=== PATIENT | male | born 1980 | race Two or more races ===

== ENCOUNTER 2018-03-07 10:35 | Inpatient (IN) | payer OTHER ==
[~2018-03-07] VITALS: Ht 177.8 cm; Wt 131.2 kg
[2018-03-07] MEDS ORDERED: IV NORMAL SALINE 1000ML BAG 1,000 ML IV SCH (11:00)
[2018-03-07] MEDS ORDERED: 0.9 % SODIUM CHLORIDE 10 ML DISP.SYRIN. IV PRN (11:00)
[2018-03-07] MEDS ORDERED: CONTRAST GIVEN. MC PRN (11:15)
[2018-03-07] MEDS ORDERED: IOHEXOL 300 MG/ML 100ML VIAL. IV ONE (11:15)
--- NOTE | 2018-03-07 11:26 | EKG ---
[facility] [address] [place] [address] Test Date: 2018-03-07 Test Time: 10:43:40 Pat Name: ROMÁN CALI Department: Room: Gender: M [employer]st [employer]: : 1980 Requested By: JOSEPHINE LEAL Order Number: [id number] Reading MD: Natanael Gutierrez MD Measurements Intervals [place] Rate: 126 P: -137 [place]: 110 QRS: 22 QRSD: 88 T: 14 QT: 348 QTc: 504 Interpretive Statements SINUS TACHYCARDIA Electronically Signed On 03-22-2018 9:07:09 CDT by Natanael Gutierrez MD
[2018-03-07 11:47] LABS: BASO % 0 % (0-3); EOS # 0.2 x10^3/uL (0.0-0.7); EOS % 1 % (0-3); HEMATOCRIT 44.1 % (39.0-53.0); HEMOGLOBIN 14.9 g/dL (13.0-17.5); LYMPH # 1.6 x10^3/uL (1.0-4.8); LYMPH % 11 % (24-48); MEAN CORPUSCULAR HEMOGLOBIN 30 pg (25-35); MEAN CORPUSCULAR HGB CONC 34 g/dL (31-37); MEAN CORPUSCULAR VOLUME 89 fL (79-100); MONO # 0.8 x10^3/uL (0.0-1.1); MONO % 5 % (0-9); NEUT # 12.1 x10^3uL (1.8-7.7); NEUT % 82 % (31-73); PLATELET COUNT 235 x10^3/uL (140-400); RED BLOOD COUNT 4.99 x10^6/uL (4.30-5.70); RED CELL DISTRIBUTION WIDTH 13.1 % (11.5-14.5); WHITE BLOOD COUNT 14.7 x10^3/uL (4.0-11.0)
[2018-03-07] MEDS ORDERED: IV NORMAL SALINE 1000ML BAG 1,000 ML IV ONE (12:00)
[2018-03-07 12:05] LABS: CALCIUM 9.8 mg/dL (8.5-10.1); GFR 84.5
[2018-03-07 12:11] LABS: ALBUMIN 3.6 g/dL (3.4-5.0); ALBUMIN/GLOBULIN RATIO 0.8 (1.0-1.7); TOTAL BILIRUBIN 0.8 mg/dL (0.2-1.0); TOTAL PROTEIN 7.9 g/dL (6.4-8.2)
--- NOTE | 2018-03-07 12:14 | PHYS DOC ---
Past Medical History Past Medical History: GERD, Hypertension Past Surgical History: Other Additional Past Surgical Histo: LEFT FOOT FX REPAIR, Alcohol Use: Rarely Drug Use: None Adult General Chief Complaint Chief Complaint: ABDOMINAL PAIN HPI HPI Patient is a 37 year old male who presents with 6-8 watery stools yesterday and 2 watery stools today. Patient states he has sharp low mid umbilical pain cramping with just plain that becomes sharp and radiates down to his scrotum upon standing. Patient rates his pain an 9 out of 10. She denies chest pain or shortness of air. Patient states he has no urinary symptoms. She states she took ibuprofen at 7:00 this morning. Has had a fever yesterday of 101 and the nurses took his temp today and it was 99. 6 and the patient states that he is having chills. Review of Systems Review of Systems Constitutional: Denies fever or chills [] Eyes: Denies change in visual acuity, redness, or eye pain [] HENT: Denies nasal congestion or sore throat [] Respiratory: Denies cough or shortness of breath [] Cardiovascular: No additional information not addressed in HPI [] GI: Low mid abdominal pain, nausea, No vomiting or bloody stools. Watery diarrhea. [] : Denies dysuria or hematuria [] Musculoskeletal: Denies back pain or joint pain [] Integument: Denies rash or skin lesions [] Neurologic: Denies headache, focal weakness or sensory changes [] Endocrine: Denies polyuria or polydipsia [] All other systems were reviewed and found to be within normal limits, except as documented in this note. Current Medications Current Medications Current Medications Medications (Trade) Dose Ordered Sig/Kee Start Time Stop Time Status Last Admin Dose Admin Ciprofloxacin/ Dextrose 200 ml @ 200 mls/hr ONCE STAT 03/07/18 13:12 03/07/18 14:11 DC 03/07/18 13:42 200 MLS/HR Diphenhydramine HCl (Benadryl) 50 mg 1X ONCE 03/07/18 14:15 03/07/18 14:16 DC 03/07/18 14:33 50 MG Fentanyl Citrate (Fentanyl 2ml Vial) 25 mcg 1X ONCE 03/07/18 14:15 03/07/18 14:16 Cancel Info (CONTRAST GIVEN -- Rx MONITORING) 1 each PRN DAILY PRN 03/07/18 11:15 03/09/18 11:14 Iohexol (Omnipaque 300 Mg/ml) 75 ml 1X ONCE 03/07/18 11:15 03/07/18 11:16 DC 03/07/18 12:46 75 ML Metronidazole 100 ml @ 100 mls/hr 1X ONCE 03/07/18 13:30 03/07/18 14:29 DC Sodium Chloride 1,000 ml @ 1,000 mls/hr 1X ONCE 03/07/18 12:00 03/07/18 12:59 DC 03/07/18 12:37 1,000 MLS/HR Sodium Chloride (Normal Saline Flush) 3 ml QSHIFT PRN 03/07/18 11:00 Allergies Allergies Allergies Coded Allergies Type Severity Reaction Last Updated Verified ciprofloxacin Allergy Intermediate RASH 03/07/18 Yes Physical Exam Physical Exam Constitutional: Well developed, well nourished, no acute distress, non-toxic appearance. [] HENT: Normocephalic, atraumatic, bilateral external ears normal, oropharynx moist, no oral exudates, nose normal. [] Eyes: PERRLA, EOMI, conjunctiva normal, no discharge. [] Neck: Normal range of motion, no tenderness, supple, no stridor. [] Cardiovascular:Heart rate regular rhythm, no murmur [] Lungs & Thorax: Bilateral breath sounds clear to auscultation [] Abdomen: Bowel sounds normal, soft, Low mid abdominal tenderness, no masses, no pulsatile masses. Abdominal pain radiates to testicular pain.[] Skin: Warm, dry, no erythema, no rash. [] Back: No tenderness, no CVA tenderness. [] Extremities: No tenderness, no cyanosis, no clubbing, ROM intact, no edema. [] Neurologic: Alert and oriented X 3, normal motor function, normal sensory function, no focal deficits noted. [] Psychologic: Affect normal, judgement normal, mood normal. [] Current Patient Data Vital Signs Vital Signs Date Time Temp Pulse Resp B/P (MAP) Pulse Ox O2 Delivery O2 Flow Rate FiO2 03/07/18 13:07 20 Room Air 03/07/18 10:36 97.9 129 162/93 (116) 95 97.9 Lab Values Laboratory Tests Test 03/07/18 11:25 03/07/18 12:18 White Blood Count 14.7 x10^3/uL (4.0-11.0) H Red Blood Count 4.99 x10^6/uL (4.30-5.70) Hemoglobin 14.9 g/dL (13.0-17.5) Hematocrit 44.1 % (39.0-53.0) Mean Corpuscular Volume 89 fL (79-100) Mean Corpuscular Hemoglobin 30 pg (25-35) Mean Corpuscular Hemoglobin Concent 34 g/dL (31-37) Red Cell Distribution Width 13.1 % (11.5-14.5) Platelet Count 235 x10^3/uL (140-400) Neutrophils (%) (Auto) 82 % (31-73) H Lymphocytes (%) (Auto) 11 % (24-48) L Monocytes (%) (Auto) 5 % (0-9) Eosinophils (%) (Auto) 1 % (0-3) Basophils (%) (Auto) 0 % (0-3) Neutrophils # (Auto) 12.1 x10^3uL (1.8-7.7) H Lymphocytes # (Auto) 1.6 x10^3/uL (1.0-4.8) Monocytes # (Auto) 0.8 x10^3/uL (0.0-1.1) Eosinophils # (Auto) 0.2 x10^3/uL (0.0-0.7) Basophils # (Auto) 0.0 x10^3/uL (0.0-0.2) Sodium Level 136 mmol/L (136-145) Potassium Level 4.0 mmol/L (3.5-5.1) Chloride Level 99 mmol/L (98-107) Carbon Dioxide Level 26 mmol/L (21-32) Anion Gap 11 (6-14) Blood Urea Nitrogen 14 mg/dL (8-26) Creatinine 1.0 mg/dL (0.7-1.3) Estimated GFR (Cockcroft-Gault) 84.5 BUN/Creatinine Ratio 14 (6-20) Glucose Level 162 mg/dL (70-99) H Calcium Level 9.8 mg/dL (8.5-10.1) Total Bilirubin 0.8 mg/dL (0.2-1.0) Aspartate Amino Transferase (AST) 49 U/L (15-37) H Alanine Aminotransferase (ALT) 141 U/L (16-63) H Alkaline Phosphatase 104 U/L (46-116) Creatine Kinase 24 U/L (39-308) L Total Protein 7.9 g/dL (6.4-8.2) Albumin 3.6 g/dL (3.4-5.0) Albumin/Globulin Ratio 0.8 (1.0-1.7) L Urine Collection Type Unknown Urine Color Jacquelyn Urine Clarity Clear Urine pH 6.5 Urine Specific [place] 1.020 Urine Protein 30 mg/dL (NEG-TRACE) Urine Glucose (UA) Negative mg/dL (NEG) Urine Ketones (Stick) Negative mg/dL (NEG) Urine Blood Negative (NEG) Urine Nitrite Negative (NEG) Urine Bilirubin Negative (NEG) Urine Urobilinogen Dipstick 0.2 mg/dL (0.2 mg/dL) Urine Leukocyte Esterase Negative (NEG) Urine RBC 0 /HPF (0-2) Urine WBC 1-4 /HPF (0-4) Urine Squamous Epithelial Cells Few /LPF Urine Transitional Epithelial Cells Few /LPF Urine Bacteria 0 /HPF (0-FEW) Urine Hyaline Casts Few /HPF Urine Mucus Marked /LPF Urine Opiates Screen Neg (NEG) Urine Methadone Screen Neg (NEG) Urine Barbiturates Neg (NEG) Urine Phencyclidine Screen Neg (NEG) Urine Amphetamine/Methamphetamine Neg (NEG) Urine Benzodiazepines Screen Neg (NEG) Urine Cocaine Screen Pos (NEG) Urine Cannabinoids Screen Pos (NEG) Urine Ethyl Alcohol Neg (NEG) Laboratory Tests 03/07/18 11:25 Laboratory Tests 03/07/18 11:25 EKG EKG Supraventricular rhythm, QRS contour abnormality, consider anterolateral myocardial damage, no STEMI[] Interpretation Time: 10:[address] Orellana Radiology/Procedures Radiology/Procedures CT Abdomen[] Impressions: [facility] [address] [place], [place] [id number] IMAGING REPORT Signed PATIENT: ROMÁN CALI ACCOUNT: [id number] : 1980 LOCATION: ER AGE: 37 SEX: M EXAM STATUS: REG ER ORD. PHYSICIAN: JOSEPHINE LEAL APRN REASON: Abdominal pain PROCEDURE: CT ABD PELV W/ IV CONTRST ONLY EXAM: Abdomen and pelvis CT with intravenous contrast. HISTORY: Pain. TECHNIQUE: Computed tomographic images of the abdomen and pelvis were obtained following the administration of 75 cc Omnipaque 300 intravenous contrast. Multiplanar reformatting was performed. *One or more of the following individualized dose reduction techniques were utilized for this examination: 1. Automated exposure control. 2. Adjustment of the mA and/or kV according to patient size. 3. Use of iterative reconstruction technique. COMPARISON: None. FINDINGS: Evaluation of the lower thorax demonstrates posterior dependent and basilar atelectasis. There is hepatomegaly and hepatic steatosis. No suspicious hepatic lesion is seen. There are few hepatic and splenic granulomas. The spleen is normal in size. The gallbladder, pancreas and adrenal glands are unremarkable. The kidneys are unremarkable. The appendix is prominent in caliber. However, there is no clear appendiceal wall thickening just acute appendicitis. There may be an appendicolith at the base of the appendix. There is distal colonic diverticulosis. There is segmental mucosal thickening with surrounding stranding involving the proximal sigmoid colon, the appearance of which favors acute diverticulitis rather than colitis. There is a small amount of adjacent free fluid and a tiny focus of extraluminal gas within the left lower quadrant. No drainable fluid collection is seen. There is no lymphadenopathy. There is a tiny fat-containing umbilical hernia. The bladder is empty. There is increased fat within the inguinal canals. There is no suspicious osseous lesion. IMPRESSION: 1. Acute diverticulitis involving the proximal sigmoid colon. There is a small amount of adjacent free fluid and a focus of free air within the left lower quadrant. No drainable abscess is seen. 2. Prominent appendiceal caliber. This is likely physiologic. There are no secondary findings to suggest appendicitis. 3. Hepatomegaly and hepatic steatosis. Electronically signed by: Penelope Osei MD (03/07/2018 1:02 PM) [place] [id number] DICTATED and SIGNED BY: PENELOPE OSEI MD DATE: 03/07/18 1257 Course & Med Decision Making Course & Med Decision Making Upon examination patient has low mid abdominal pain that is tender to palpation. Patient states that when he is laying it's a crampy feeling but when he stands the pain radiates down into his scrotum. Patient rates his pain a 9 out of 10 and sharp. Patient has no scrotal edema in both testes are descended. Denies any chest pain or shortness of air. Patient denies any urinary symptoms. Patient's family states that yesterday he did have a fever of 101. Nurse's today state that his temp is 99 states that he said some chills in the room. Denies any other symptoms. Patient is neurologically intact. Patient's does have an elevated white blood cell count of 14.7. Patient's EKG read by Dr. Garcia shows no STEMI but he is tachycardic at 126. Patient is going to receive 2 L of normal saline boluses today in the ED. patient was given 50 of fentanyl for pain. Patient's urine came back with cocaine and marijuana present. CT abdomen and pelvis show results state Acute diverticulitis involving the proximal sigmoid colon. There is a small amount of adjacent free fluid and a focus of free air within the left lower quadrant. No drainable abscess is seen. Prominent appendiceal caliber. This is likely physiologic. There are no secondary findings to suggest appendicitis. Hepatomegaly and hepatic steatosis. Patient has been told results of the CT scan and Gen. surgery to be called. Patient's blood pressure is currently 149/87 and his heart rate is 121. Patient is currently on his second bolus of normal saline. And IV antibiotics Ciprofloxacin 500mg and Flagyl 500 mg have been ordered in the ED. Patient is to be kept nothing by mouth. Patient's last intake was last night at 6 PM. Patient had a reaction to the ciprofloxacin that he was given here in the ER with a red rash. Patient is given 50 mg of Benadryl IV and the antibiotic is changed to Zosyn. General surgery Dr Morse is called to consult at about the patient. Dr. Powell is admitting patient to [facility]. Patient is given another 4 mg of morphine for pain. Patient to be admitted upstairs. [] Sam Disclaimer Dragon Disclaimer This electronic medical record was generated, in whole or in part, using a voice recognition dictation system. Departure Departure Impression: Primary Impression: Diverticulitis of colon with perforation Disposition: ADMITTED INPATIENT Admitting Physician: Bhavna Powell Condition: STABLE Referrals: JOSE BUTTERFIELD MD (PCP) Problem Qualifiers Primary Impression: Diverticulitis of colon with perforation Diverticulitis bleeding: unspecified bleeding status Qualified Codes: K57.20 - Diverticulitis of large intestine with perforation and abscess without bleeding JOSEPHINE LEAL PESTICIDE APPLICATOR Mar 07, 2018 12:14
[2018-03-07 12:28] LABS: BILIRUBIN,URINE NEGATIVE (NEG); CLARITY,URINE CLEAR; COLOR,URINE AMBER; NITRITE,URINE NEGATIVE (NEG); PH,URINE 6.5; PROTEIN,URINE 30 mg/dL (NEG-TRACE); UROBILINOGEN,URINE 0.2 mg/dL (0.2 mg/dL)
[2018-03-07 12:35] LABS: AMPHETAMINE/METHAMPHETAMINE NEG (NEG); BARBITURATES NEG (NEG); BENZODIAZEPINES NEG (NEG); CANNABINOIDS POS (NEG); COCAINE POS (NEG); METHADONE NEG (NEG); OPIATES NEG (NEG); PHENCYCLIDINE NEG (NEG)
[2018-03-07 12:39] LABS: BACTERIA,URINE 0 /HPF (0-FEW); HYALINE CASTS, URINE FEW /HPF; RBC,URINE 0 /HPF (0-2); SQUAMOUS EPITHELIAL CELL,UR FEW /LPF
[2018-03-07] MEDS ORDERED: fentaNYL PF VIAL 100 MCG/2 ML VIAL IV ONE ×2 (13:00→14:15)
--- NOTE | 2018-03-07 13:05 | RAD ---
EXAM: Abdomen and pelvis CT with intravenous contrast. HISTORY: Pain. TECHNIQUE: Computed tomographic images of the abdomen and pelvis were obtained following the administration of 75 cc Omnipaque 300 intravenous contrast. Multiplanar reformatting was performed. *One or more of the following individualized dose reduction techniques were utilized for this examination: 1. Automated exposure control. 2. Adjustment of the mA and/or kV according to patient size. 3. Use of iterative reconstruction technique. COMPARISON: None. FINDINGS: Evaluation of the lower thorax demonstrates posterior dependent and basilar atelectasis. There is hepatomegaly and hepatic steatosis. No suspicious hepatic lesion is seen. There are few hepatic and splenic granulomas. The spleen is normal in size. The gallbladder, pancreas and adrenal glands are unremarkable. The kidneys are unremarkable. The appendix is prominent in caliber. However, there is no clear appendiceal wall thickening just acute appendicitis. There may be an appendicolith at the base of the appendix. There is distal colonic diverticulosis. There is segmental mucosal thickening with surrounding stranding involving the proximal sigmoid colon, the appearance of which favors acute diverticulitis rather than colitis. There is a small amount of adjacent free fluid and a tiny focus of extraluminal gas within the left lower quadrant. No drainable fluid collection is seen. There is no lymphadenopathy. There is a tiny fat-containing umbilical hernia. The bladder is empty. There is increased fat within the inguinal canals. There is no suspicious osseous lesion. IMPRESSION: 1. Acute diverticulitis involving the proximal sigmoid colon. There is a small amount of adjacent free fluid and a focus of free air within the left lower quadrant. No drainable abscess is seen. 2. Prominent appendiceal caliber. This is likely physiologic. There are no secondary findings to suggest appendicitis. 3. Hepatomegaly and hepatic steatosis. Electronically signed by: Penelope Younger MD (03/07/2018 1:02 PM) [place] [id number]
[2018-03-07] MEDS ORDERED: CIPROFLOXACIN 400MG PREMIX 200 ML IV STA (13:12)
[2018-03-07] MEDS ORDERED: diphenhydrAMINE 50 MG/ML VIAL IVP ONE (14:15)
[2018-03-07] MEDS ORDERED: ONDANSETRON PF 4 MG/2 ML VIAL. IV PRN (14:30)
[2018-03-07] MEDS ORDERED: MORPHINE SULFATE 4 MG/ML DISP.SYRIN. IV ONE (14:30)
[2018-03-07] MEDS ORDERED: PIPERACILLIN/TAZOBACTAM 3.375 GM in IV NORMAL SALINE 50ML 50 ML IV ONE (14:30)
[2018-03-07 16:00] VITALS: BP 128/70
[2018-03-07] MEDS: MORPHINE SULFATE 4 MG/ML DISP.SYRIN. IV PRN ×4 (16:30→23:05)
[2018-03-07] MEDS ORDERED: IV NORMAL SALINE 500ML BAG 500 ML IV ONE (16:45)
[2018-03-07] MEDS: AMINO AC 3%/ELECTROLYTE/GLYCER 1,000 ML IV SCH (17:23)
--- NOTE | 2018-03-07 17:52 | PDOC2 ---
CONSULT Date of Consult Date of Consult DATE: 03/07/18 TIME: 17:46 Reason for Consult Reason for Consult: diverticulitis Referring Physician Referring Physician: IPC Identification/Chief Complaint Chief Complaint LLQ pain, loose stools Source Source: Chart review, Patient History of Present Illness Reason for Visit: Deep is an obese 37 yo gentleman with two days of loose stools and LLQ pain. CT in ED showed sigmoid diverticulitis with a very small collection of extraluminal air. Past Medical History Cardiovascular: No pertinent hx Pulmonary: No pertinent hx GI: No pertinent hx Past Surgical History Past Surgical History: No pertinent history Family History Family History: No Significant Social History Drugs: Cocaine, Marijuana Current Problem List Problem List Problems Medical Problems: (1) Diverticulitis of colon with perforation Status: Acute Current Medications Current Medications Current Medications Sodium Chloride (Normal Saline Flush) 3 ml QSHIFT PRN IV AFTER MEDS AND BLOOD DRAWS; Start 03/07/18 at 11:00 Sodium Chloride 1,000 ml @ 1,000 mls/hr Q1H IV Last administered on 03/07/18at 11:32; Start 03/07/18 at 11:00; Stop 03/07/18 at 11:59; Status DC Iohexol (Omnipaque 300 Mg/ml) 75 ml 1X ONCE IV Last administered on 03/07/18at 12:46; Start 03/07/18 at 11:15; Stop 03/07/18 at 11:16; Status DC Info (CONTRAST GIVEN -- Rx MONITORING) 1 each PRN DAILY PRN MC SEE COMMENTS; Start 03/07/18 at 11:15; Stop 03/09/18 at 11:14 Sodium Chloride 1,000 ml @ 1,000 mls/hr 1X ONCE IV Last administered on at 12:37; Start 03/07/18 at 12:00; Stop 03/07/18 at 12:59; Status DC Fentanyl Citrate (Fentanyl 2ml Vial) 50 mcg 1X ONCE IV Last administered on 03/07/18at 13:07; Start 03/07/18 at 13:00; Stop 03/07/18 at 13:01; Status DC Metronidazole 100 ml @ 100 mls/hr 1X ONCE IV ; Start 03/07/18 at 13:30; Stop at 14:29; Status DC Ciprofloxacin/ Dextrose 200 ml @ 200 mls/hr ONCE STAT IV Last administered on 03/07/18at 13:42; Start 03/07/18 at 13:12; Stop 03/07/18 at 14:11; Status DC Piperacillin Sod/ Tazobactam Sod 3.375 gm/Sodium Chloride 50 ml @ 100 mls/hr 1X ONCE IV Last administered on 03/07/18at 14:43; Start 03/07/18 at 14:30; Stop 03/07/18 at 14:59; Status DC Diphenhydramine HCl (Benadryl) 50 mg 1X ONCE IVP Last administered on at 14:33; Start 03/07/18 at 14:15; Stop 03/07/18 at 14:16; Status DC Fentanyl Citrate (Fentanyl 2ml Vial) 25 mcg 1X ONCE IV ; Start 03/07/18 at 14:15 ; Stop 03/07/18 at 14:16; Status Cancel Morphine Sulfate (Morphine Sulfate) 4 mg 1X ONCE IV Last administered on at 14:35; Start 03/07/18 at 14:30; Stop 03/07/18 at 14:31; Status DC Ondansetron HCl (Zofran) 4 mg PRN Q8HRS PRN IV NAUSEA/VOMITING; Start 03/07/18 at 14:30; Stop 03/08/18 at 14:29 Morphine Sulfate (Morphine Sulfate) 4 mg PRN Q2HR PRN IV PAIN Last administered on 03/07/18at 16:30; Start 03/07/18 at 14:30; Stop 03/08/18 at 14:29 Piperacillin Sod/ Tazobactam Sod 3.375 gm/Sodium Chloride 50 ml @ 100 mls/hr Q6HRS IV ; Start 03/07/18 at 18:00 Metronidazole 100 ml @ 100 mls/hr Q8HRS IV ; Start 03/07/18 at 22:00 Sodium Chloride 500 ml @ 500 mls/hr 1X ONCE IV ; Start 03/07/18 at 16:45; Stop 03/07/18 at 17:44; Status DC Amino Acids/ Glycerin/ Electrolytes 1,000 ml @ 80 mls/hr [id number] IV Last administered on 03/07/18at 17:23; Start 03/07/18 at 16:45 Allergies Allergies: Coded Allergies: ciprofloxacin (Verified Allergy, Intermediate, RASH, 03/07/18) ROS Review of System negative with exception of present complaints Physical Exam General: Alert, Oriented X3, No acute distress HEENT: Atraumatic Lungs: Normal air movement Heart: Other (increased rate, regular rythmn) Abdomen: Soft, Other (obese, mildly TTP in the LLQ) Skin: Other (warm, dry) Neuro: Normal speech Vitals VITALS Vital Signs Date Time Temp Pulse Resp B/P (MAP) Pulse Ox O2 Delivery O2 Flow Rate FiO2 03/07/18 16:30 24 Room Air 03/07/18 16:00 101.4 124 128/70 (89) 91 101.4 Labs Labs Laboratory Tests Test 03/07/18 11:25 03/07/18 12:18 03/07/18 16:40 White Blood Count 14.7 x10^3/uL (4.0-11.0) Red Blood Count 4.99 x10^6/uL (4.30-5.70) Hemoglobin 14.9 g/dL (13.0-17.5) Hematocrit 44.1 % (39.0-53.0) Mean Corpuscular Volume 89 fL (79-100) Mean Corpuscular Hemoglobin 30 pg (25-35) Mean Corpuscular Hemoglobin Concent 34 g/dL (31-37) Red Cell Distribution Width 13.1 % (11.5-14.5) Platelet Count 235 x10^3/uL (140-400) Neutrophils (%) (Auto) 82 % (31-73) Lymphocytes (%) (Auto) 11 % (24-48) Monocytes (%) (Auto) 5 % (0-9) Eosinophils (%) (Auto) 1 % (0-3) Basophils (%) (Auto) 0 % (0-3) Neutrophils # (Auto) 12.1 x10^3uL (1.8-7.7) Lymphocytes # (Auto) 1.6 x10^3/uL (1.0-4.8) Monocytes # (Auto) 0.8 x10^3/uL (0.0-1.1) Eosinophils # (Auto) 0.2 x10^3/uL (0.0-0.7) Basophils # (Auto) 0.0 x10^3/uL (0.0-0.2) Sodium Level 136 mmol/L (136-145) Potassium Level 4.0 mmol/L (3.5-5.1) Chloride Level 99 mmol/L (98-107) Carbon Dioxide Level 26 mmol/L (21-32) Anion Gap 11 (6-14) Blood Urea Nitrogen 14 mg/dL (8-26) Creatinine 1.0 mg/dL (0.7-1.3) Estimated GFR (Cockcroft-Gault) 84.5 BUN/Creatinine Ratio 14 (6-20) Glucose Level 162 mg/dL (70-99) Calcium Level 9.8 mg/dL (8.5-10.1) Total Bilirubin 0.8 mg/dL (0.2-1.0) Aspartate Amino Transf (AST/SGOT) 49 U/L (15-37) Alanine Aminotransferase (ALT/SGPT) 141 U/L (16-63) Alkaline Phosphatase 104 U/L (46-116) Creatine Kinase 24 U/L (39-308) Total Protein 7.9 g/dL (6.4-8.2) Albumin 3.6 g/dL (3.4-5.0) Albumin/Globulin Ratio 0.8 (1.0-1.7) Urine Collection Type Unknown Urine Color Jacquelyn Urine Clarity Clear Urine pH 6.5 Urine Specific [place] 1.020 Urine Protein 30 mg/dL (NEG-TRACE) Urine Glucose (UA) Negative mg/dL (NEG) Urine Ketones (Stick) Negative mg/dL (NEG) Urine Blood Negative (NEG) Urine Nitrite Negative (NEG) Urine Bilirubin Negative (NEG) Urine Urobilinogen Dipstick 0.2 mg/dL (0.2 mg/dL) Urine Leukocyte Esterase Negative (NEG) Urine RBC 0 /HPF (0-2) Urine WBC 1-4 /HPF (0-4) Urine Squamous Epithelial Cells Few /LPF Urine Transitional Epithelial Cells Few /LPF Urine Bacteria 0 /HPF (0-FEW) Urine Hyaline Casts Few /HPF Urine Mucus Marked /LPF Urine Opiates Screen Neg (NEG) Urine Methadone Screen Neg (NEG) Urine Barbiturates Neg (NEG) Urine Phencyclidine Screen Neg (NEG) Urine Amphetamine/Methamphetamine Neg (NEG) Urine Benzodiazepines Screen Neg (NEG) Urine Cocaine Screen Pos (NEG) Urine Cannabinoids Screen Pos (NEG) Urine Ethyl Alcohol Neg (NEG) Lactic Acid Level 1.3 mmol/L (0.4-2.0) Laboratory Tests Test 03/07/18 11:25 03/07/18 12:18 03/07/18 16:40 White Blood Count 14.7 x10^3/uL (4.0-11.0) Red Blood Count 4.99 x10^6/uL (4.30-5.70) Hemoglobin 14.9 g/dL (13.0-17.5) Hematocrit 44.1 % (39.0-53.0) Mean Corpuscular Volume 89 fL (79-100) Mean Corpuscular Hemoglobin 30 pg (25-35) Mean Corpuscular Hemoglobin Concent 34 g/dL (31-37) Red Cell Distribution Width 13.1 % (11.5-14.5) Platelet Count 235 x10^3/uL (140-400) Neutrophils (%) (Auto) 82 % (31-73) Lymphocytes (%) (Auto) 11 % (24-48) Monocytes (%) (Auto) 5 % (0-9) Eosinophils (%) (Auto) 1 % (0-3) Basophils (%) (Auto) 0 % (0-3) Neutrophils # (Auto) 12.1 x10^3uL (1.8-7.7) Lymphocytes # (Auto) 1.6 x10^3/uL (1.0-4.8) Monocytes # (Auto) 0.8 x10^3/uL (0.0-1.1) Eosinophils # (Auto) 0.2 x10^3/uL (0.0-0.7) Basophils # (Auto) 0.0 x10^3/uL (0.0-0.2) Sodium Level 136 mmol/L (136-145) Potassium Level 4.0 mmol/L (3.5-5.1) Chloride Level 99 mmol/L (98-107) Carbon Dioxide Level 26 mmol/L (21-32) Anion Gap 11 (6-14) Blood Urea Nitrogen 14 mg/dL (8-26) Creatinine 1.0 mg/dL (0.7-1.3) Estimated GFR (Cockcroft-Gault) 84.5 BUN/Creatinine Ratio 14 (6-20) Glucose Level 162 mg/dL (70-99) Calcium Level 9.8 mg/dL (8.5-10.1) Total Bilirubin 0.8 mg/dL (0.2-1.0) Aspartate Amino Transf (AST/SGOT) 49 U/L (15-37) Alanine Aminotransferase (ALT/SGPT) 141 U/L (16-63) Alkaline Phosphatase 104 U/L (46-116) Creatine Kinase 24 U/L (39-308) Total Protein 7.9 g/dL (6.4-8.2) Albumin 3.6 g/dL (3.4-5.0) Albumin/Globulin Ratio 0.8 (1.0-1.7) Urine Collection Type Unknown Urine Color Jacquelyn Urine Clarity Clear Urine pH 6.5 Urine Specific [place] 1.020 Urine Protein 30 mg/dL (NEG-TRACE) Urine Glucose (UA) Negative mg/dL (NEG) Urine Ketones (Stick) Negative mg/dL (NEG) Urine Blood Negative (NEG) Urine Nitrite Negative (NEG) Urine Bilirubin Negative (NEG) Urine Urobilinogen Dipstick 0.2 mg/dL (0.2 mg/dL) Urine Leukocyte Esterase Negative (NEG) Urine RBC 0 /HPF (0-2) Urine WBC 1-4 /HPF (0-4) Urine Squamous Epithelial Cells Few /LPF Urine Transitional Epithelial Cells Few /LPF Urine Bacteria 0 /HPF (0-FEW) Urine Hyaline Casts Few /HPF Urine Mucus Marked /LPF Urine Opiates Screen Neg (NEG) Urine Methadone Screen Neg (NEG) Urine Barbiturates Neg (NEG) Urine Phencyclidine Screen Neg (NEG) Urine Amphetamine/Methamphetamine Neg (NEG) Urine Benzodiazepines Screen Neg (NEG) Urine Cocaine Screen Pos (NEG) Urine Cannabinoids Screen Pos (NEG) Urine Ethyl Alcohol Neg (NEG) Lactic Acid Level 1.3 mmol/L (0.4-2.0) Images Images CT on admission is reviewed Assessment/Plan Assessment/Plan sigmoid diverticulitis with microperforation obesity positive urine drug screen gut rest, antibiotics, serial exams hopefully can defervesce acute event and avoid surgical intervention will follow with you Thanks for consult ABRAHAN CONNELLY MD Mar 07, 2018 17:52
[2018-03-07] MEDS: PIPERACILLIN/TAZOBACTAM 3.375 GM in IV NORMAL SALINE 50ML 50 ML IV SCH (18:21)
[2018-03-07 19:00] VITALS: BP 132/81
[2018-03-07 23:00] VITALS: BP 131/86
--- NOTE | 2018-03-07 23:57 | HP ---
ADMIT DATE: 03/07/2018 CHIEF COMPLAINT: Abdominal pain and loose stools. HISTORY OF PRESENT ILLNESS: The patient is a pleasant, relatively healthy 37-year-old male who presented with abdominal pain and loose stools, has been occurring for a couple of days. He rates it at 10/10. He has associated cramping. He tried taking some denm-fqy-kjhwfan meds, but that did not help. He had a fever yesterday of 101. We did some CAT scan imaging here in the ER, he has got a perforated diverticula. We are going to admit the patient and give him IV antibiotics and consult Dr. Morse. PAST MEDICAL HISTORY: GERD, hypertension, overweight and foot surgery. ALLERGIES: CIPRO. FAMILY HISTORY: Coronary artery disease. SOCIAL HISTORY: He does not drink, smoke or take drugs. He is . MEDICATIONS: Reviewed, please refer to the MRAD. REVIEW OF SYSTEMS: GENERAL: No history of weight change, weakness or fevers. SKIN: No bruising, hair changes or rashes. EYES: No blurred, double or loss of vision. NOSE AND THROAT: No history of nosebleeds, hoarseness or sore throat. HEART: No history of palpitations, chest pain or shortness of breath on exertion. LUNGS: Denies cough, hemoptysis, wheezing or shortness of breath. GASTROINTESTINAL: He complains of abdominal pain. GENITOURINARY: No history of frequency, urgency, hesitancy or nocturia. NEUROLOGIC: Denies history of numbness, tingling, tremor or weakness. PSYCHIATRIC: No history of panic, anxiety or depression. ENDOCRINE: No history of heat or cold intolerance, polyuria or polydipsia. EXTREMITIES: Denies muscle weakness, joint pain, pain on walking or stiffness. PHYSICAL EXAMINATION: VITAL SIGNS: Temperature 97, pulse 100, respirations 16, blood pressure 131/86. GENERAL: He is alert, cooperative. HEART: Normal S1, S2. LUNGS: Clear. ABDOMEN: Soft and tender. EXTREMITIES: No edema. SKIN: No rashes. ENDOCRINE: No thyromegaly. LYMPHATICS: No cervical nodes. HEMATOPOIETIC: No bruising. LABORATORY DATA: White count is 15. Electrolytes are normal. ASSESSMENT AND PLAN: Perforated diverticulitis. The patient has been admitted. We are consulting Dr. Morse. IV Zosyn, IV Flagyl, IV fluids, p.r.n. Zofran, p.r.n. narcotics. Continue home meds. KEO AYALA DO DR: KELLIE/arnold JOB#: [id number] / [id number]
[2018-03-08] MEDS: PIPERACILLIN/TAZOBACTAM 3.375 GM in IV NORMAL SALINE 50ML 50 ML IV SCH ×4 (00:12→18:17)
[2018-03-08 03:00] VITALS: BP 158/109
[2018-03-08] MEDS: MORPHINE SULFATE 4 MG/ML DISP.SYRIN. IV PRN ×8 (03:35→22:15)
[2018-03-08] MEDS: AMINO AC 3%/ELECTROLYTE/GLYCER 1,000 ML IV SCH ×2 (05:53→18:18)
[2018-03-08 06:31] LABS: BASO # 0.1 x10^3/uL (0.0-0.2); BASO % 0 % (0-3); EOS # 0.1 x10^3/uL (0.0-0.7); EOS % 1 % (0-3); HEMATOCRIT 40.5 % (39.0-53.0); HEMOGLOBIN 13.5 g/dL (13.0-17.5); LYMPH # 1.8 x10^3/uL (1.0-4.8); LYMPH % 12 % (24-48); MEAN CORPUSCULAR HEMOGLOBIN 30 pg (25-35); MEAN CORPUSCULAR HGB CONC 33 g/dL (31-37); MEAN CORPUSCULAR VOLUME 90 fL (79-100); MONO % 7 % (0-9); NEUT # 11.8 x10^3uL (1.8-7.7); NEUT % 80 % (31-73); PLATELET COUNT 213 x10^3/uL (140-400); RED BLOOD COUNT 4.52 x10^6/uL (4.30-5.70); RED CELL DISTRIBUTION WIDTH 13.5 % (11.5-14.5); WHITE BLOOD COUNT 14.8 x10^3/uL (4.0-11.0)
[2018-03-08 07:00] VITALS: BP 118/86
[2018-03-08] MEDS: PANTOPRAZOLE IV PUSH 40 MG VIAL. IVP SCH (08:19)
[2018-03-08 11:00] VITALS: BP 140/65
--- NOTE | 2018-03-08 11:51 | PDOC ---
SURGICAL PROGRESS NOTE Subjective pain improved, not gone no n/v Vital Signs Vital Signs Date Time Temp Pulse Resp B/P (MAP) Pulse Ox O2 Delivery O2 Flow Rate FiO2 03/08/18 11:31 16 Nasal Cannula 2.0 03/08/18 11:00 99.0 99 140/65 (90) 90 99.0 I&O Intake and Output 03/08/18 07:00 Intake Total 200 ml Output Total 700 ml Balance -500 ml Intake IV Total 200 ml Output Urine Total 700 ml # Voids 1 General: Alert, Oriented X3, Cooperative, No acute distress Abdomen: Soft, Other (TTP LLQ) Labs Laboratory Tests Test 03/07/18 11:25 03/07/18 12:18 03/07/18 16:40 03/08/18 05:20 White Blood Count 14.7 x10^3/uL (4.0-11.0) 14.8 x10^3/uL (4.0-11.0) Red Blood Count 4.99 x10^6/uL (4.30-5.70) 4.52 x10^6/uL (4.30-5.70) Hemoglobin 14.9 g/dL (13.0-17.5) 13.5 g/dL (13.0-17.5) Hematocrit 44.1 % (39.0-53.0) 40.5 % (39.0-53.0) Mean Corpuscular Volume 89 fL (79-100) 90 fL (79-100) Mean Corpuscular Hemoglobin 30 pg (25-35) 30 pg (25-35) Mean Corpuscular Hemoglobin Concent 34 g/dL (31-37) 33 g/dL (31-37) Red Cell Distribution Width 13.1 % (11.5-14.5) 13.5 % (11.5-14.5) Platelet Count 235 x10^3/uL (140-400) 213 x10^3/uL (140-400) Neutrophils (%) (Auto) 82 % (31-73) 80 % (31-73) Lymphocytes (%) (Auto) 11 % (24-48) 12 % (24-48) Monocytes (%) (Auto) 5 % (0-9) 7 % (0-9) Eosinophils (%) (Auto) 1 % (0-3) 1 % (0-3) Basophils (%) (Auto) 0 % (0-3) 0 % (0-3) Neutrophils # (Auto) 12.1 x10^3uL (1.8-7.7) 11.8 x10^3uL (1.8-7.7) Lymphocytes # (Auto) 1.6 x10^3/uL (1.0-4.8) 1.8 x10^3/uL (1.0-4.8) Monocytes # (Auto) 0.8 x10^3/uL (0.0-1.1) 1.0 x10^3/uL (0.0-1.1) Eosinophils # (Auto) 0.2 x10^3/uL (0.0-0.7) 0.1 x10^3/uL (0.0-0.7) Basophils # (Auto) 0.0 x10^3/uL (0.0-0.2) 0.1 x10^3/uL (0.0-0.2) Sodium Level 136 mmol/L (136-145) Potassium Level 4.0 mmol/L (3.5-5.1) Chloride Level 99 mmol/L (98-107) Carbon Dioxide Level 26 mmol/L (21-32) Anion Gap 11 (6-14) Blood Urea Nitrogen 14 mg/dL (8-26) Creatinine 1.0 mg/dL (0.7-1.3) Estimated GFR (Cockcroft-Gault) 84.5 BUN/Creatinine Ratio 14 (6-20) Glucose Level 162 mg/dL (70-99) Calcium Level 9.8 mg/dL (8.5-10.1) Total Bilirubin 0.8 mg/dL (0.2-1.0) Aspartate Amino Transf (AST/SGOT) 49 U/L (15-37) Alanine Aminotransferase (ALT/SGPT) 141 U/L (16-63) Alkaline Phosphatase 104 U/L (46-116) Creatine Kinase 24 U/L (39-308) Total Protein 7.9 g/dL (6.4-8.2) Albumin 3.6 g/dL (3.4-5.0) Albumin/Globulin Ratio 0.8 (1.0-1.7) Urine Collection Type Unknown Urine Color Jacquelyn Urine Clarity Clear Urine pH 6.5 Urine Specific Dwarf 1.020 Urine Protein 30 mg/dL (NEG-TRACE) Urine Glucose (UA) Negative mg/dL (NEG) Urine Ketones (Stick) Negative mg/dL (NEG) Urine Blood Negative (NEG) Urine Nitrite Negative (NEG) Urine Bilirubin Negative (NEG) Urine Urobilinogen Dipstick 0.2 mg/dL (0.2 mg/dL) Urine Leukocyte Esterase Negative (NEG) Urine RBC 0 /HPF (0-2) Urine WBC 1-4 /HPF (0-4) Urine Squamous Epithelial Cells Few /LPF Urine Transitional Epithelial Cells Few /LPF Urine Bacteria 0 /HPF (0-FEW) Urine Hyaline Casts Few /HPF Urine Mucus Marked /LPF Urine Opiates Screen Neg (NEG) Urine Methadone Screen Neg (NEG) Urine Barbiturates Neg (NEG) Urine Phencyclidine Screen Neg (NEG) Urine Amphetamine/Methamphetamine Neg (NEG) Urine Benzodiazepines Screen Neg (NEG) Urine Cocaine Screen Pos (NEG) Urine Cannabinoids Screen Pos (NEG) Urine Ethyl Alcohol Neg (NEG) Lactic Acid Level 1.3 mmol/L (0.4-2.0) Laboratory Tests Test 03/07/18 12:18 03/07/18 16:40 03/08/18 05:20 Urine Collection Type Unknown Urine Color Jacquelyn Urine Clarity Clear Urine pH 6.5 Urine Specific Dwarf 1.020 Urine Protein 30 mg/dL (NEG-TRACE) Urine Glucose (UA) Negative mg/dL (NEG) Urine Ketones (Stick) Negative mg/dL (NEG) Urine Blood Negative (NEG) Urine Nitrite Negative (NEG) Urine Bilirubin Negative (NEG) Urine Urobilinogen Dipstick 0.2 mg/dL (0.2 mg/dL) Urine Leukocyte Esterase Negative (NEG) Urine RBC 0 /HPF (0-2) Urine WBC 1-4 /HPF (0-4) Urine Squamous Epithelial Cells Few /LPF Urine Transitional Epithelial Cells Few /LPF Urine Bacteria 0 /HPF (0-FEW) Urine Hyaline Casts Few /HPF Urine Mucus Marked /LPF Urine Opiates Screen Neg (NEG) Urine Methadone Screen Neg (NEG) Urine Barbiturates Neg (NEG) Urine Phencyclidine Screen Neg (NEG) Urine Amphetamine/Methamphetamine Neg (NEG) Urine Benzodiazepines Screen Neg (NEG) Urine Cocaine Screen Pos (NEG) Urine Cannabinoids Screen Pos (NEG) Urine Ethyl Alcohol Neg (NEG) Lactic Acid Level 1.3 mmol/L (0.4-2.0) White Blood Count 14.8 x10^3/uL (4.0-11.0) Red Blood Count 4.52 x10^6/uL (4.30-5.70) Hemoglobin 13.5 g/dL (13.0-17.5) Hematocrit 40.5 % (39.0-53.0) Mean Corpuscular Volume 90 fL (79-100) Mean Corpuscular Hemoglobin 30 pg (25-35) Mean Corpuscular Hemoglobin Concent 33 g/dL (31-37) Red Cell Distribution Width 13.5 % (11.5-14.5) Platelet Count 213 x10^3/uL (140-400) Neutrophils (%) (Auto) 80 % (31-73) Lymphocytes (%) (Auto) 12 % (24-48) Monocytes (%) (Auto) 7 % (0-9) Eosinophils (%) (Auto) 1 % (0-3) Basophils (%) (Auto) 0 % (0-3) Neutrophils # (Auto) 11.8 x10^3uL (1.8-7.7) Lymphocytes # (Auto) 1.8 x10^3/uL (1.0-4.8) Monocytes # (Auto) 1.0 x10^3/uL (0.0-1.1) Eosinophils # (Auto) 0.1 x10^3/uL (0.0-0.7) Basophils # (Auto) 0.1 x10^3/uL (0.0-0.2) Problem List Problems Medical Problems: (1) Diverticulitis of colon with perforation Status: Acute Assessment/Plan fevers and HR improved wbc 14 continue bowel rest, iv abx JANUSZ SMITH [employer]UD[employer] MODEL Mar 08, 2018 11:51
--- NOTE | 2018-03-08 12:01 | PDOC ---
PROGRESS NOTES Chief Complaint Chief Complaint Problems: -Diverticulitis of colon with perforation -GERD -hypertension -overweight -foot surgery History of Present Illness History of Present Illness Pt seen & examine NAD He stated he was feeling much better DW him our management plan Vitals Vitals Vital Signs Date Time Temp Pulse Resp B/P (MAP) Pulse Ox O2 Delivery O2 Flow Rate FiO2 03/08/18 11:31 16 Nasal Cannula 2.0 03/08/18 11:00 99.0 99 140/65 (90) 90 99.0 Physical Exam General: Alert, Oriented X3, Cooperative, No acute distress Heart: Regular rate, Normal S1, Normal S2, Other (increased rate, regular rythmn) Lungs: Clear, Other Abdomen: Soft, Other (TTP LLQ) Extremities: No clubbing, No cyanosis, No edema Skin: No rashes, Other (warm, dry) Labs LABS Laboratory Tests Test 03/07/18 12:18 03/07/18 16:40 03/08/18 05:20 Urine Collection Type Unknown Urine Color Jacquelyn Urine Clarity Clear Urine pH 6.5 Urine Specific Mutual 1.020 Urine Protein 30 mg/dL (NEG-TRACE) Urine Glucose (UA) Negative mg/dL (NEG) Urine Ketones (Stick) Negative mg/dL (NEG) Urine Blood Negative (NEG) Urine Nitrite Negative (NEG) Urine Bilirubin Negative (NEG) Urine Urobilinogen Dipstick 0.2 mg/dL (0.2 mg/dL) Urine Leukocyte Esterase Negative (NEG) Urine RBC 0 /HPF (0-2) Urine WBC 1-4 /HPF (0-4) Urine Squamous Epithelial Cells Few /LPF Urine Transitional Epithelial Cells Few /LPF Urine Bacteria 0 /HPF (0-FEW) Urine Hyaline Casts Few /HPF Urine Mucus Marked /LPF Urine Opiates Screen Neg (NEG) Urine Methadone Screen Neg (NEG) Urine Barbiturates Neg (NEG) Urine Phencyclidine Screen Neg (NEG) Urine Amphetamine/Methamphetamine Neg (NEG) Urine Benzodiazepines Screen Neg (NEG) Urine Cocaine Screen Pos (NEG) Urine Cannabinoids Screen Pos (NEG) Urine Ethyl Alcohol Neg (NEG) Lactic Acid Level 1.3 mmol/L (0.4-2.0) White Blood Count 14.8 x10^3/uL (4.0-11.0) Red Blood Count 4.52 x10^6/uL (4.30-5.70) Hemoglobin 13.5 g/dL (13.0-17.5) Hematocrit 40.5 % (39.0-53.0) Mean Corpuscular Volume 90 fL (79-100) Mean Corpuscular Hemoglobin 30 pg (25-35) Mean Corpuscular Hemoglobin Concent 33 g/dL (31-37) Red Cell Distribution Width 13.5 % (11.5-14.5) Platelet Count 213 x10^3/uL (140-400) Neutrophils (%) (Auto) 80 % (31-73) Lymphocytes (%) (Auto) 12 % (24-48) Monocytes (%) (Auto) 7 % (0-9) Eosinophils (%) (Auto) 1 % (0-3) Basophils (%) (Auto) 0 % (0-3) Neutrophils # (Auto) 11.8 x10^3uL (1.8-7.7) Lymphocytes # (Auto) 1.8 x10^3/uL (1.0-4.8) Monocytes # (Auto) 1.0 x10^3/uL (0.0-1.1) Eosinophils # (Auto) 0.1 x10^3/uL (0.0-0.7) Basophils # (Auto) 0.1 x10^3/uL (0.0-0.2) Review of Systems Review of Systems Pt. lacked BUSH Pt. lacked N/V Assessment and Plan Assessmemt and Plan Problems: -Diverticulitis of colon with perforation -GERD -hypertension -overweight -foot surgery Plan: -Hope to DC if okay w/ Surgery -X-Ray -Continue ABX -Labs -PT/OT Comment Review of Relevant I have reviewed the following items kalin (where applicable) has been applied. Labs Laboratory Tests Test 03/07/18 11:25 03/07/18 12:18 03/07/18 16:40 03/08/18 05:20 White Blood Count 14.7 x10^3/uL (4.0-11.0) 14.8 x10^3/uL (4.0-11.0) Red Blood Count 4.99 x10^6/uL (4.30-5.70) 4.52 x10^6/uL (4.30-5.70) Hemoglobin 14.9 g/dL (13.0-17.5) 13.5 g/dL (13.0-17.5) Hematocrit 44.1 % (39.0-53.0) 40.5 % (39.0-53.0) Mean Corpuscular Volume 89 fL (79-100) 90 fL (79-100) Mean Corpuscular Hemoglobin 30 pg (25-35) 30 pg (25-35) Mean Corpuscular Hemoglobin Concent 34 g/dL (31-37) 33 g/dL (31-37) Red Cell Distribution Width 13.1 % (11.5-14.5) 13.5 % (11.5-14.5) Platelet Count 235 x10^3/uL (140-400) 213 x10^3/uL (140-400) Neutrophils (%) (Auto) 82 % (31-73) 80 % (31-73) Lymphocytes (%) (Auto) 11 % (24-48) 12 % (24-48) Monocytes (%) (Auto) 5 % (0-9) 7 % (0-9) Eosinophils (%) (Auto) 1 % (0-3) 1 % (0-3) Basophils (%) (Auto) 0 % (0-3) 0 % (0-3) Neutrophils # (Auto) 12.1 x10^3uL (1.8-7.7) 11.8 x10^3uL (1.8-7.7) Lymphocytes # (Auto) 1.6 x10^3/uL (1.0-4.8) 1.8 x10^3/uL (1.0-4.8) Monocytes # (Auto) 0.8 x10^3/uL (0.0-1.1) 1.0 x10^3/uL (0.0-1.1) Eosinophils # (Auto) 0.2 x10^3/uL (0.0-0.7) 0.1 x10^3/uL (0.0-0.7) Basophils # (Auto) 0.0 x10^3/uL (0.0-0.2) 0.1 x10^3/uL (0.0-0.2) Sodium Level 136 mmol/L (136-145) Potassium Level 4.0 mmol/L (3.5-5.1) Chloride Level 99 mmol/L (98-107) Carbon Dioxide Level 26 mmol/L (21-32) Anion Gap 11 (6-14) Blood Urea Nitrogen 14 mg/dL (8-26) Creatinine 1.0 mg/dL (0.7-1.3) Estimated GFR (Cockcroft-Gault) 84.5 BUN/Creatinine Ratio 14 (6-20) Glucose Level 162 mg/dL (70-99) Calcium Level 9.8 mg/dL (8.5-10.1) Total Bilirubin 0.8 mg/dL (0.2-1.0) Aspartate Amino Transf (AST/SGOT) 49 U/L (15-37) Alanine Aminotransferase (ALT/SGPT) 141 U/L (16-63) Alkaline Phosphatase 104 U/L (46-116) Creatine Kinase 24 U/L (39-308) Total Protein 7.9 g/dL (6.4-8.2) Albumin 3.6 g/dL (3.4-5.0) Albumin/Globulin Ratio 0.8 (1.0-1.7) Urine Collection Type Unknown Urine Color Jacquelyn Urine Clarity Clear Urine pH 6.5 Urine Specific Mutual 1.020 Urine Protein 30 mg/dL (NEG-TRACE) Urine Glucose (UA) Negative mg/dL (NEG) Urine Ketones (Stick) Negative mg/dL (NEG) Urine Blood Negative (NEG) Urine Nitrite Negative (NEG) Urine Bilirubin Negative (NEG) Urine Urobilinogen Dipstick 0.2 mg/dL (0.2 mg/dL) Urine Leukocyte Esterase Negative (NEG) Urine RBC 0 /HPF (0-2) Urine WBC 1-4 /HPF (0-4) Urine Squamous Epithelial Cells Few /LPF Urine Transitional Epithelial Cells Few /LPF Urine Bacteria 0 /HPF (0-FEW) Urine Hyaline Casts Few /HPF Urine Mucus Marked /LPF Urine Opiates Screen Neg (NEG) Urine Methadone Screen Neg (NEG) Urine Barbiturates Neg (NEG) Urine Phencyclidine Screen Neg (NEG) Urine Amphetamine/Methamphetamine Neg (NEG) Urine Benzodiazepines Screen Neg (NEG) Urine Cocaine Screen Pos (NEG) Urine Cannabinoids Screen Pos (NEG) Urine Ethyl Alcohol Neg (NEG) Lactic Acid Level 1.3 mmol/L (0.4-2.0) Laboratory Tests Test 03/07/18 12:18 03/07/18 16:40 03/08/18 05:20 Urine Collection Type Unknown Urine Color Jacquelyn Urine Clarity Clear Urine pH 6.5 Urine Specific Mutual 1.020 Urine Protein 30 mg/dL (NEG-TRACE) Urine Glucose (UA) Negative mg/dL (NEG) Urine Ketones (Stick) Negative mg/dL (NEG) Urine Blood Negative (NEG) Urine Nitrite Negative (NEG) Urine Bilirubin Negative (NEG) Urine Urobilinogen Dipstick 0.2 mg/dL (0.2 mg/dL) Urine Leukocyte Esterase Negative (NEG) Urine RBC 0 /HPF (0-2) Urine WBC 1-4 /HPF (0-4) Urine Squamous Epithelial Cells Few /LPF Urine Transitional Epithelial Cells Few /LPF Urine Bacteria 0 /HPF (0-FEW) Urine Hyaline Casts Few /HPF Urine Mucus Marked /LPF Urine Opiates Screen Neg (NEG) Urine Methadone Screen Neg (NEG) Urine Barbiturates Neg (NEG) Urine Phencyclidine Screen Neg (NEG) Urine Amphetamine/Methamphetamine Neg (NEG) Urine Benzodiazepines Screen Neg (NEG) Urine Cocaine Screen Pos (NEG) Urine Cannabinoids Screen Pos (NEG) Urine Ethyl Alcohol Neg (NEG) Lactic Acid Level 1.3 mmol/L (0.4-2.0) White Blood Count 14.8 x10^3/uL (4.0-11.0) Red Blood Count 4.52 x10^6/uL (4.30-5.70) Hemoglobin 13.5 g/dL (13.0-17.5) Hematocrit 40.5 % (39.0-53.0) Mean Corpuscular Volume 90 fL (79-100) Mean Corpuscular Hemoglobin 30 pg (25-35) Mean Corpuscular Hemoglobin Concent 33 g/dL (31-37) Red Cell Distribution Width 13.5 % (11.5-14.5) Platelet Count 213 x10^3/uL (140-400) Neutrophils (%) (Auto) 80 % (31-73) Lymphocytes (%) (Auto) 12 % (24-48) Monocytes (%) (Auto) 7 % (0-9) Eosinophils (%) (Auto) 1 % (0-3) Basophils (%) (Auto) 0 % (0-3) Neutrophils # (Auto) 11.8 x10^3uL (1.8-7.7) Lymphocytes # (Auto) 1.8 x10^3/uL (1.0-4.8) Monocytes # (Auto) 1.0 x10^3/uL (0.0-1.1) Eosinophils # (Auto) 0.1 x10^3/uL (0.0-0.7) Basophils # (Auto) 0.1 x10^3/uL (0.0-0.2) Medications Current Medications Sodium Chloride (Normal Saline Flush) 3 ml QSHIFT PRN IV AFTER MEDS AND BLOOD DRAWS; Start 03/07/18 at 11:00 Sodium Chloride 1,000 ml @ 1,000 mls/hr Q1H IV Last administered on 03/07/18at 11:32; Start 03/07/18 at 11:00; Stop 03/07/18 at 11:59; Status DC Iohexol (Omnipaque 300 Mg/ml) 75 ml 1X ONCE IV Last administered on 03/07/18at 12:46; Start 03/07/18 at 11:15; Stop 03/07/18 at 11:16; Status DC Info (CONTRAST GIVEN -- Rx MONITORING) 1 each PRN DAILY PRN MC SEE COMMENTS; Start 03/07/18 at 11:15; Stop 03/09/18 at 11:14 Sodium Chloride 1,000 ml @ 1,000 mls/hr 1X ONCE IV Last administered on at 12:37; Start 03/07/18 at 12:00; Stop 03/07/18 at 12:59; Status DC Fentanyl Citrate (Fentanyl 2ml Vial) 50 mcg 1X ONCE IV Last administered on 03/07/18at 13:07; Start 03/07/18 at 13:00; Stop 03/07/18 at 13:01; Status DC Metronidazole 100 ml @ 100 mls/hr 1X ONCE IV ; Start 03/07/18 at 13:30; Stop at 14:29; Status DC Ciprofloxacin/ Dextrose 200 ml @ 200 mls/hr ONCE STAT IV Last administered on 03/07/18at 13:42; Start 03/07/18 at 13:12; Stop 03/07/18 at 14:11; Status DC Piperacillin Sod/ Tazobactam Sod 3.375 gm/Sodium Chloride 50 ml @ 100 mls/hr 1X ONCE IV Last administered on 03/07/18at 14:43; Start 03/07/18 at 14:30; Stop 03/07/18 at 14:59; Status DC Diphenhydramine HCl (Benadryl) 50 mg 1X ONCE IVP Last administered on at 14:33; Start 03/07/18 at 14:15; Stop 03/07/18 at 14:16; Status DC Fentanyl Citrate (Fentanyl 2ml Vial) 25 mcg 1X ONCE IV ; Start 03/07/18 at 14:15 ; Stop 03/07/18 at 14:16; Status Cancel Morphine Sulfate (Morphine Sulfate) 4 mg 1X ONCE IV Last administered on at 14:35; Start 03/07/18 at 14:30; Stop 03/07/18 at 14:31; Status DC Ondansetron HCl (Zofran) 4 mg PRN Q8HRS PRN IV NAUSEA/VOMITING; Start 03/07/18 at 14:30; Stop 03/08/18 at 14:29 Morphine Sulfate (Morphine Sulfate) 4 mg PRN Q2HR PRN IV PAIN Last administered on 03/08/18at 08:20; Start 03/07/18 at 14:30; Stop 03/08/18 at 14:29 Piperacillin Sod/ Tazobactam Sod 3.375 gm/Sodium Chloride 50 ml @ 100 mls/hr Q6HRS IV Last administered on 03/08/18at 05:54; Start 03/07/18 at 18:00 Metronidazole 100 ml @ 100 mls/hr Q8HRS IV Last administered on 03/08/18at 06:28 ; Start 03/07/18 at 22:00 Sodium Chloride 500 ml @ 500 mls/hr 1X ONCE IV Last administered on 03/07/18at 16:45; Start 03/07/18 at 16:45; Stop 03/07/18 at 17:44; Status DC Amino Acids/ Glycerin/ Electrolytes 1,000 ml @ 80 mls/hr [id number] IV Last administered on 03/08/18at 05:53; Start 03/07/18 at 16:45 Acetaminophen (Tylenol) 650 mg PRN Q6HRS PRN PO fever ; Start 03/07/18 at 18:00 Pantoprazole Sodium (PROTONIX VIAL for IV PUSH) 40 mg DAILYAC IVP Last administered on 03/08/18at 08:19; Start 03/08/18 at 07:45 Vitals/I & O Vital Sign - Last 24 Hours 03/07/18 03/07/18 03/07/18 03/07/18 12:07 12:50 13:07 13:20 Pulse 118 120 122 Resp 20 B/P (MAP) 148/74 (98) 149/87 (107) 143/77 (99) O2 Delivery Room Air 03/07/18 03/07/18 03/07/18 03/07/18 13:50 14:20 14:35 14:50 Pulse 118 126 126 Resp 20 B/P (MAP) 142/74 (96) 144/81 (102) 139/67 (91) Pulse Ox 94 O2 Delivery Room Air 03/07/18 03/07/18 03/07/18 03/07/18 15:20 16:00 16:30 17:00 Temp 101.4 101.4 Pulse 126 124 Resp 16 24 22 B/P (MAP) 139/67 (91) 128/70 (89) Pulse Ox 91 O2 Delivery Room Air Room Air Room Air 03/07/18 03/07/18 03/07/18 03/07/18 18:23 19:00 20:00 20:54 Temp 98.8 98.8 Pulse 114 Resp 24 16 B/P (MAP) 132/81 (98) Pulse Ox 92 91 O2 Delivery Room Air Room Air O2 Flow Rate 2.0 2.0 03/07/18 03/07/18 03/08/18 03/08/18 23:00 23:05 03:00 03:35 Temp 97.5 99.1 97.5 99.1 Pulse 114 100 Resp 16 16 B/P (MAP) 131/86 (101) 158/109 (125) Pulse Ox 91 91 91 91 O2 Delivery Room Air Room Air O2 Flow Rate 2.0 2.0 03/08/18 03/08/18 03/08/18 03/08/18 05:54 06:36 07:00 08:20 Temp 99.9 99.9 Pulse 110 Resp 18 16 B/P (MAP) 118/86 (97) Pulse Ox 91 91 89 O2 Delivery Nasal Cannula Nasal Cannula O2 Flow Rate 2.0 2.0 2.0 2.0 03/08/18 03/08/18 11:00 11:31 Temp 99.0 99.0 Pulse 99 Resp 18 16 B/P (MAP) 140/65 (90) Pulse Ox 90 O2 Delivery Room Air Nasal Cannula O2 Flow Rate 2.0 Intake and Output 03/07/18 03/07/18 03/08/18 15:00 23:00 07:00 Intake Total 50 ml 150 ml Output Total 300 ml 400 ml Balance -250 ml -250 ml KEO AYALA III DO Mar 08, 2018 12:01
[2018-03-08 15:00] VITALS: BP 125/82
[2018-03-08 19:00] VITALS: BP 131/97
[2018-03-08 23:00] VITALS: BP 164/87
[2018-03-09] VITALS (18 sets, daily range): BP systolic 92–152; BP diastolic 54–88
[2018-03-09] MEDS: PIPERACILLIN/TAZOBACTAM 3.375 GM in IV NORMAL SALINE 50ML 50 ML IV SCH ×4 (00:05→18:29)
[2018-03-09] MEDS: MORPHINE SULFATE 4 MG/ML DISP.SYRIN. IV PRN ×2 (01:48→04:26)
[2018-03-09] MEDS: ONDANSETRON PF 4 MG/2 ML VIAL. IV PRN (02:07)
[2018-03-09] MEDS ORDERED: fentaNYL PF VIAL 100 MCG/2 ML VIAL ONE (06:55)
[2018-03-09] MEDS ORDERED: MIDAZOLAM HCL/PF 5 MG/5 ML VIAL. ONE (06:55)
[2018-03-09] MEDS ORDERED: ETOMIDATE 20 MG/10 ML VIAL. IV ONE (06:55)
[2018-03-09] MEDS ORDERED: NOREPINEPHRIN 8MG/250ML PREMIX 250 ML IV ONE ×2 (06:55→10:37)
[2018-03-09] MEDS ORDERED: SUCCINYLCHOLINE 200 MG/10 ML VIAL. ONE (06:56)
[2018-03-09] MEDS ORDERED: MIDAZOLAM HCL/PF 2 MG/2 ML VIAL. IV PRN (07:00)
[2018-03-09] MEDS ORDERED: fentaNYL PF VIAL 100 MCG/2 ML VIAL IV PRN ×2 (07:00)
[2018-03-09] MEDS ORDERED: NOREPINEPHRINE PREMIX 8 MG/250 ML BAG. IV ONE ×2 (07:00→11:00)
--- NOTE | 2018-03-09 07:06 | ED.ADGEN ---
Past Medical History Past Medical History: GERD, Hypertension Past Surgical History: Other Additional Past Surgical Histo: LEFT FOOT FX REPAIR, Alcohol Use: Rarely Drug Use: None Adult General Chief Complaint Chief Complaint: ABDOMINAL PAIN HPI HPI Patient is a 37 year old male who was found down in his hospital room. CODE BLUE summary: CODE BLUE was activated for this patient. I arrived to the patient's room to find him on the floor with chest compressions in progress. The patient received one shock just as I was entering the room. He was defibrillated from pulseless ventricular tachycardia according to nursing staff. Following the defibrillation , a two-minute period of chest compressions was completed. After this, the patient was noted to have a pulse in the 50s which did eventually improve to the 100s and 120s. Blood pressure was checked and the patient was found to have a blood pressure. Patient continued to be on the floor. Given the patient's body habitus, he was difficult somewhat to ventilate with a [id number]. 7.5 ET tube was placed using the glide scope. The cords were easily visualized. The patient was given 20 mg of etomidate and 120 mg of succinylcholine prior to the procedure. Tube placement was verified with fog in the tube, color change on the colorimeter, bilateral chest rise and fall. Given that the patient was found down, C-spine immobilization was utilized. C-collar was placed. Available history is from the nursing staff and I did also speak to the patient' s . The patient was last seen about 5:15 AM. He was reportedly at baseline mental status and with no complaints. Nursing staff then went to check on him about 30 or 40 minutes later (check nursing records for exact time). The patient was simply found to be on the floor and not responsive. Review of Systems Review of Systems no ROS available immediately as patient is critically ill Current Medications Current Medications Current Medications Medications (Trade) Dose Ordered Sig/Kee Start Time Stop Time Status Last Admin Dose Admin Ciprofloxacin/ Dextrose 200 ml @ 200 mls/hr ONCE STAT 03/07/18 13:12 03/07/18 14:11 DC 03/07/18 13:42 200 MLS/HR Diphenhydramine HCl (Benadryl) 50 mg 1X ONCE 03/07/18 14:15 03/07/18 14:16 DC 03/07/18 14:33 50 MG Fentanyl Citrate (Fentanyl 2ml Vial) 25 mcg 1X ONCE 03/07/18 14:15 03/07/18 14:16 Cancel Info (CONTRAST GIVEN -- Rx MONITORING) 1 each PRN DAILY PRN 03/07/18 11:15 03/09/18 11:14 DC Iohexol (Omnipaque 300 Mg/ml) 75 ml 1X ONCE 03/07/18 11:15 03/07/18 11:16 DC 03/07/18 12:46 75 ML Metronidazole 100 ml @ 100 mls/hr 1X ONCE 03/07/18 13:30 03/07/18 14:29 DC Sodium Chloride 1,000 ml @ 1,000 mls/hr 1X ONCE 03/07/18 12:00 03/07/18 12:59 DC 03/07/18 12:37 1,000 MLS/HR Sodium Chloride (Normal Saline Flush) 3 ml QSHIFT PRN 03/07/18 11:00 Allergies Allergies Allergies Coded Allergies Type Severity Reaction Last Updated Verified ciprofloxacin Allergy Intermediate RASH 03/07/18 Yes Physical Exam Physical Exam Constitutional: obese male on the floor, unresponsive and with agonal respiratory efforts HENT: Normocephalic, atraumatic Eyes: PERRLA Neck: c-spine immobilization initiated Cardiovascular: regular rhythm with rate in the 50's (initially) Lungs & Thorax: course breath sounds bilaterally, agonal respirations Abdomen: obese, soft Skin: mottled over lower abdomen Extremities: cool, no edema Neurologic: Initially unresponsive with agonal respirations. Following intubation, the patient was gagging and resisting the tube. no mvt of extremities was seen Current Patient Data Vital Signs Vital Signs Date Time Temp Pulse Resp B/P (MAP) Pulse Ox O2 Delivery O2 Flow Rate FiO2 03/07/18 14:20 126 144/81 (102) 03/07/18 13:07 20 Room Air 03/07/18 10:36 97.9 95 97.9 Lab Values Laboratory Tests Test 03/07/18 11:25 03/07/18 12:18 White Blood Count 14.7 x10^3/uL (4.0-11.0) H Red Blood Count 4.99 x10^6/uL (4.30-5.70) Hemoglobin 14.9 g/dL (13.0-17.5) Hematocrit 44.1 % (39.0-53.0) Mean Corpuscular Volume 89 fL (79-100) Mean Corpuscular Hemoglobin 30 pg (25-35) Mean Corpuscular Hemoglobin Concent 34 g/dL (31-37) Red Cell Distribution Width 13.1 % (11.5-14.5) Platelet Count 235 x10^3/uL (140-400) Neutrophils (%) (Auto) 82 % (31-73) H Lymphocytes (%) (Auto) 11 % (24-48) L Monocytes (%) (Auto) 5 % (0-9) Eosinophils (%) (Auto) 1 % (0-3) Basophils (%) (Auto) 0 % (0-3) Neutrophils # (Auto) 12.1 x10^3uL (1.8-7.7) H Lymphocytes # (Auto) 1.6 x10^3/uL (1.0-4.8) Monocytes # (Auto) 0.8 x10^3/uL (0.0-1.1) Eosinophils # (Auto) 0.2 x10^3/uL (0.0-0.7) Basophils # (Auto) 0.0 x10^3/uL (0.0-0.2) Sodium Level 136 mmol/L (136-145) Potassium Level 4.0 mmol/L (3.5-5.1) Chloride Level 99 mmol/L (98-107) Carbon Dioxide Level 26 mmol/L (21-32) Anion Gap 11 (6-14) Blood Urea Nitrogen 14 mg/dL (8-26) Creatinine 1.0 mg/dL (0.7-1.3) Estimated GFR (Cockcroft-Gault) 84.5 BUN/Creatinine Ratio 14 (6-20) Glucose Level 162 mg/dL (70-99) H Calcium Level 9.8 mg/dL (8.5-10.1) Total Bilirubin 0.8 mg/dL (0.2-1.0) Aspartate Amino Transferase (AST) 49 U/L (15-37) H Alanine Aminotransferase (ALT) 141 U/L (16-63) H Alkaline Phosphatase 104 U/L (46-116) Creatine Kinase 24 U/L (39-308) L Total Protein 7.9 g/dL (6.4-8.2) Albumin 3.6 g/dL (3.4-5.0) Albumin/Globulin Ratio 0.8 (1.0-1.7) L Urine Collection Type Unknown Urine Color Jacquelyn Urine Clarity Clear Urine pH 6.5 Urine Specific [place] 1.020 Urine Protein 30 mg/dL (NEG-TRACE) Urine Glucose (UA) Negative mg/dL (NEG) Urine Ketones (Stick) Negative mg/dL (NEG) Urine Blood Negative (NEG) Urine Nitrite Negative (NEG) Urine Bilirubin Negative (NEG) Urine Urobilinogen Dipstick 0.2 mg/dL (0.2 mg/dL) Urine Leukocyte Esterase Negative (NEG) Urine RBC 0 /HPF (0-2) Urine WBC 1-4 /HPF (0-4) Urine Squamous Epithelial Cells Few /LPF Urine Transitional Epithelial Cells Few /LPF Urine Bacteria 0 /HPF (0-FEW) Urine Hyaline Casts Few /HPF Urine Mucus Marked /LPF Urine Opiates Screen Neg (NEG) Urine Methadone Screen Neg (NEG) Urine Barbiturates Neg (NEG) Urine Phencyclidine Screen Neg (NEG) Urine Amphetamine/Methamphetamine Neg (NEG) Urine Benzodiazepines Screen Neg (NEG) Urine Cocaine Screen Pos (NEG) Urine Cannabinoids Screen Pos (NEG) Urine Ethyl Alcohol Neg (NEG) Laboratory Tests 03/07/18 11:25 Laboratory Tests 03/07/18 11:25 Microbiology 03/07/18 Blood Culture - Preliminary, Resulted NO GROWTH AFTER 2 DAYS EKG EKG [] Radiology/Procedures Radiology/Procedures [] Course & Med Decision Making Course & Med Decision Making Pertinent Labs and Imaging studies reviewed. (See chart for details) This patient was resuscitated initially in his room on the fourth floor. C- collar was placed. ET tube was placed without difficulty. Oxygen saturations were greater than 95% following the procedure. The patient was then moved to the intensive care unit. He was again transferred to the ICU bed utilizing C- spine precautions. He was given an additional dose of fentanyl, Versed, and a single dose of rocuronium during the interim time until sedation medications could be ordered and initiated. Ventilation sedation orders are placed in the computer. CT head and C-spine without contrast. EKG and troponin. I also spoke to the patient's who was in the ICU waiting room. I updated her to the best of my knowledge regarding the patient's condition and status. It remains unclear what caused the patient to collapse in his room. I spent 60 minutes of critical care time in the management of this patient to include direct patient care, airway management, CPR, review of chart, discussions with nursing staff and the patient's family, and documentation. Bert Chiu DO Emergency Staff Physician Sam Disclaimer Sam Disclaimer This electronic medical record was generated, in whole or in part, using a voice recognition dictation system. BERT CHIU DO Mar 09, 2018 07:06
--- NOTE | 2018-03-09 07:51 | RAD ---
EXAM: CHEST 1 VIEW History: Post cord COMPARISON: 02/08/2015 TECHNIQUE: Single portable radiograph of the chest FINDINGS: The ET tube is identified in the trachea at the level of the clavicles. The feeding tube is identified below the diaphragm likely within the stomach. Low lung volumes and technique accentuates heart size and pulmonary vascularity. Linear airspace opacities identified in the right lung base, left upper lobe likely atelectasis or infiltrates. IMPRESSION: 1. ET tube, feeding tube in place. 2. Mild linear airspace opacities identified in the right lung base, left upper lobe likely atelectasis or infiltrates. Electronically signed by: Wilber German MD (03/09/2018 7:48 AM) [facility]
[2018-03-09 08:22] LABS: BASE EXCESS COOX -6 mmol/L (-3-3); HCO3 COOX 21 mmol/L (21-28); METHEMOGLOBIN 0.2 % (0.0-1.9); OXYHEMOGLOBIN 89.6 %; PCO2 COOX 44 mmHg (35-46); PO2 COOX 66 mmHg (85-108); SAT O2 COOX 90 % (92-99)
[2018-03-09 08:57] LABS: CALCIUM 8.6 mg/dL (8.5-10.1); CREATININE 1.8 mg/dL (0.7-1.3); GFR 42.9; POTASSIUM 4.6 mmol/L (3.5-5.1)
[2018-03-09] MEDS: CHLORHEXIDINE 0.12% 15 ML MOUTHWASH. MM SCH (09:00)
[2018-03-09 09:03] LABS: ALBUMIN 2.5 g/dL (3.4-5.0); ALBUMIN/GLOBULIN RATIO 0.5 (1.0-1.7); TOTAL BILIRUBIN 0.8 mg/dL (0.2-1.0); TOTAL PROTEIN 7.6 g/dL (6.4-8.2)
--- NOTE | 2018-03-09 09:04 | EKG ---
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
--- NOTE | 2018-03-09 09:08 | PDOC ---
JANUSZ SMITH MANUGRAPHER 03/09/18 0908: SURGICAL PROGRESS NOTE Subjective seen in icu post code vent, awake family present Vital Signs Vital Signs Date Time Temp Pulse Resp B/P (MAP) Pulse Ox O2 Delivery O2 Flow Rate FiO2 03/09/18 08:01 90 Ventilator 03/09/18 05:00 20 2.0 03/09/18 03:00 130 114/54 (74) 03/08/18 19:00 99.8 99.8 I&O Intake and Output 03/09/18 07:00 Intake Total 3780 ml Output Total 525 ml Balance 3255 ml Intake Oral 0 ml IV Total 1760 ml Other 2020 ml Output Urine Total 525 ml # Voids 4 PATIENT HAS A ZELAYA: Yes General: Cooperative, No acute distress HEENT: Other (vent) Abdomen: Soft, No tenderness Labs Laboratory Tests Test 03/07/18 11:25 03/07/18 12:18 03/07/18 16:40 03/08/18 05:20 White Blood Count 14.7 x10^3/uL (4.0-11.0) 14.8 x10^3/uL (4.0-11.0) Red Blood Count 4.99 x10^6/uL (4.30-5.70) 4.52 x10^6/uL (4.30-5.70) Hemoglobin 14.9 g/dL (13.0-17.5) 13.5 g/dL (13.0-17.5) Hematocrit 44.1 % (39.0-53.0) 40.5 % (39.0-53.0) Mean Corpuscular Volume 89 fL (79-100) 90 fL (79-100) Mean Corpuscular Hemoglobin 30 pg (25-35) 30 pg (25-35) Mean Corpuscular Hemoglobin Concent 34 g/dL (31-37) 33 g/dL (31-37) Red Cell Distribution Width 13.1 % (11.5-14.5) 13.5 % (11.5-14.5) Platelet Count 235 x10^3/uL (140-400) 213 x10^3/uL (140-400) Neutrophils (%) (Auto) 82 % (31-73) 80 % (31-73) Lymphocytes (%) (Auto) 11 % (24-48) 12 % (24-48) Monocytes (%) (Auto) 5 % (0-9) 7 % (0-9) Eosinophils (%) (Auto) 1 % (0-3) 1 % (0-3) Basophils (%) (Auto) 0 % (0-3) 0 % (0-3) Neutrophils # (Auto) 12.1 x10^3uL (1.8-7.7) 11.8 x10^3uL (1.8-7.7) Lymphocytes # (Auto) 1.6 x10^3/uL (1.0-4.8) 1.8 x10^3/uL (1.0-4.8) Monocytes # (Auto) 0.8 x10^3/uL (0.0-1.1) 1.0 x10^3/uL (0.0-1.1) Eosinophils # (Auto) 0.2 x10^3/uL (0.0-0.7) 0.1 x10^3/uL (0.0-0.7) Basophils # (Auto) 0.0 x10^3/uL (0.0-0.2) 0.1 x10^3/uL (0.0-0.2) Sodium Level 136 mmol/L (136-145) Potassium Level 4.0 mmol/L (3.5-5.1) Chloride Level 99 mmol/L (98-107) Carbon Dioxide Level 26 mmol/L (21-32) Anion Gap 11 (6-14) Blood Urea Nitrogen 14 mg/dL (8-26) Creatinine 1.0 mg/dL (0.7-1.3) Estimated GFR (Cockcroft-Gault) 84.5 BUN/Creatinine Ratio 14 (6-20) Glucose Level 162 mg/dL (70-99) Calcium Level 9.8 mg/dL (8.5-10.1) Total Bilirubin 0.8 mg/dL (0.2-1.0) Aspartate Amino Transf (AST/SGOT) 49 U/L (15-37) Alanine Aminotransferase (ALT/SGPT) 141 U/L (16-63) Alkaline Phosphatase 104 U/L (46-116) Creatine Kinase 24 U/L (39-308) Total Protein 7.9 g/dL (6.4-8.2) Albumin 3.6 g/dL (3.4-5.0) Albumin/Globulin Ratio 0.8 (1.0-1.7) Urine Collection Type Unknown Urine Color Jacquelyn Urine Clarity Clear Urine pH 6.5 Urine Specific [place] 1.020 Urine Protein 30 mg/dL (NEG-TRACE) Urine Glucose (UA) Negative mg/dL (NEG) Urine Ketones (Stick) Negative mg/dL (NEG) Urine Blood Negative (NEG) Urine Nitrite Negative (NEG) Urine Bilirubin Negative (NEG) Urine Urobilinogen Dipstick 0.2 mg/dL (0.2 mg/dL) Urine Leukocyte Esterase Negative (NEG) Urine RBC 0 /HPF (0-2) Urine WBC 1-4 /HPF (0-4) Urine Squamous Epithelial Cells Few /LPF Urine Transitional Epithelial Cells Few /LPF Urine Bacteria 0 /HPF (0-FEW) Urine Hyaline Casts Few /HPF Urine Mucus Marked /LPF Urine Opiates Screen Neg (NEG) Urine Methadone Screen Neg (NEG) Urine Barbiturates Neg (NEG) Urine Phencyclidine Screen Neg (NEG) Urine Amphetamine/Methamphetamine Neg (NEG) Urine Benzodiazepines Screen Neg (NEG) Urine Cocaine Screen Pos (NEG) Urine Cannabinoids Screen Pos (NEG) Urine Ethyl Alcohol Neg (NEG) Lactic Acid Level 1.3 mmol/L (0.4-2.0) Test 03/09/18 08:10 03/09/18 08:44 03/09/18 08:45 O2 Saturation 90 % (92-99) Arterial Blood pH 7.29 (7.35-7.45) Arterial Blood pCO2 at Patient Temp 44 mmHg (35-46) Arterial Blood pO2 at Patient Temp 66 mmHg (85-108) Arterial Blood HCO3 21 mmol/L (21-28) Arterial Blood Base Excess -6 mmol/L (-3-3) Oxyhemoglobin 89.6 % Methemoglobin 0.2 % (0.0-1.9) Carbon Monoxide, Quantitative 0.7 % (0.0-1.9) FiO2 100 Glucose (Fingerstick) 222 mg/dL (70-99) Sodium Level 134 mmol/L (136-145) Potassium Level 4.6 mmol/L (3.5-5.1) Chloride Level 99 mmol/L (98-107) Carbon Dioxide Level 22 mmol/L (21-32) Anion Gap 13 (6-14) Blood Urea Nitrogen 20 mg/dL (8-26) Creatinine 1.8 mg/dL (0.7-1.3) Estimated GFR (Cockcroft-Gault) 42.9 BUN/Creatinine Ratio 11 (6-20) Glucose Level 239 mg/dL (70-99) Calcium Level 8.6 mg/dL (8.5-10.1) Magnesium Level 2.0 mg/dL (1.8-2.4) Total Bilirubin 0.8 mg/dL (0.2-1.0) Aspartate Amino Transf (AST/SGOT) 61 U/L (15-37) Alanine Aminotransferase (ALT/SGPT) 90 U/L (16-63) Alkaline Phosphatase 94 U/L (46-116) Total Protein 7.6 g/dL (6.4-8.2) Albumin 2.5 g/dL (3.4-5.0) Albumin/Globulin Ratio 0.5 (1.0-1.7) Laboratory Tests Test 03/09/18 08:10 03/09/18 08:44 03/09/18 08:45 O2 Saturation 90 % (92-99) Arterial Blood pH 7.29 (7.35-7.45) Arterial Blood pCO2 at Patient Temp 44 mmHg (35-46) Arterial Blood pO2 at Patient Temp 66 mmHg (85-108) Arterial Blood HCO3 21 mmol/L (21-28) Arterial Blood Base Excess -6 mmol/L (-3-3) Oxyhemoglobin 89.6 % Methemoglobin 0.2 % (0.0-1.9) Carbon Monoxide, Quantitative 0.7 % (0.0-1.9) FiO2 100 Glucose (Fingerstick) 222 mg/dL (70-99) Sodium Level 134 mmol/L (136-145) Potassium Level 4.6 mmol/L (3.5-5.1) Chloride Level 99 mmol/L (98-107) Carbon Dioxide Level 22 mmol/L (21-32) Anion Gap 13 (6-14) Blood Urea Nitrogen 20 mg/dL (8-26) Creatinine 1.8 mg/dL (0.7-1.3) Estimated GFR (Cockcroft-Gault) 42.9 BUN/Creatinine Ratio 11 (6-20) Glucose Level 239 mg/dL (70-99) Calcium Level 8.6 mg/dL (8.5-10.1) Magnesium Level 2.0 mg/dL (1.8-2.4) Total Bilirubin 0.8 mg/dL (0.2-1.0) Aspartate Amino Transf (AST/SGOT) 61 U/L (15-37) Alanine Aminotransferase (ALT/SGPT) 90 U/L (16-63) Alkaline Phosphatase 94 U/L (46-116) Total Protein 7.6 g/dL (6.4-8.2) Albumin 2.5 g/dL (3.4-5.0) Albumin/Globulin Ratio 0.5 (1.0-1.7) Problem List Problems Medical Problems: (1) Diverticulitis of colon with perforation Status: Acute Assessment/Plan diverticulitis post code blue ICU, vent will check CT when stable SAMY GÓMEZ MD 03/09/18 1715: SURGICAL PROGRESS NOTE Assessment/Plan Pt seen and examined. Agree with Ms. Smith's note Pt intubated, minimally responsive stable abd soft will repeat CT with IV po contrast when stable d/w pt's mother JANUSZ SMITH APRN Mar 09, 2018 09:08 SAMY GÓMEZ MD Mar 09, 2018 17:15
[2018-03-09 09:28] LABS: BASO # 0.1 x10^3/uL (0.0-0.2); BASO % 0 % (0-3); EOS % 0 % (0-3); HEMATOCRIT 41.3 % (39.0-53.0); HEMOGLOBIN 13.9 g/dL (13.0-17.5); LYMPH # 1.3 x10^3/uL (1.0-4.8); LYMPH % 7 % (24-48); MEAN CORPUSCULAR HEMOGLOBIN 30 pg (25-35); MEAN CORPUSCULAR HGB CONC 34 g/dL (31-37); MEAN CORPUSCULAR VOLUME 90 fL (79-100); MONO # 1.7 x10^3/uL (0.0-1.1); MONO % 9 % (0-9); NEUT # 16.1 x10^3uL (1.8-7.7); NEUT % 84 % (31-73); PLATELET COUNT 282 x10^3/uL (140-400); RED BLOOD COUNT 4.59 x10^6/uL (4.30-5.70); RED CELL DISTRIBUTION WIDTH 13.5 % (11.5-14.5); WHITE BLOOD COUNT 19.1 x10^3/uL (4.0-11.0)
[2018-03-09] MEDS: MIDAZOLAM 100mg/100ml NS BAG 100 ML IV PRN ×2 (09:34→22:22)
[2018-03-09 09:35] LABS: PROTHROMBIN TIME PATIENT 14.8 SEC (11.7-14.0)
[2018-03-09 09:47] LABS: CREATINE KINASE 40 U/L (39-308)
[2018-03-09 09:59] LABS: AMPHETAMINE/METHAMPHETAMINE NEG (NEG); BARBITURATES NEG (NEG); BENZODIAZEPINES POS (NEG); CANNABINOIDS POS (NEG); METHADONE NEG (NEG); OPIATES POS (NEG); PHENCYCLIDINE NEG (NEG)
[2018-03-09 10:02] LABS: COCAINE POS (NEG)
--- NOTE | 2018-03-09 10:09 | PDOC ---
PROGRESS NOTES Chief Complaint Chief Complaint status post cardiac arrest, nonsustained V. tach, 2 minutes run of CPR, 03/09/18 Fall in hospital Problems: -Diverticulitis of colon with perforation -GERD -hypertension -overweight -foot surgery History of Present Illness History of Present Illness Admitted for perforation of the diverticulitis, first episode of diverticulitis. Was actually being planned for starting a liquid diet possibly over the weekend But about 6:15 AM today, found on the ground, unresponsive, nonsustained V. tach , 2 minutes of CPR, with ROSC Seen now in ICU, intubated, but awake on Versed On the vent. C-collar on. Oliguric after 2 boluses of normal saline Maxed out on levophed We're mckeon CT especially CTA o rule out PE Patient is morbidly obese with a BMI of 42. No known cardiac history prior to admission Possibly ARNIE, has not gotten a chance to get a sleep study Workup still ongoing Family at bedside, updated though distraught but realistic Good mentation of pt PLAN: Mckeon CT DVT and PPI px on board VEnt bundle C collar till CT c spine NS 125cc/.hr Renal consult for oliguria Second pressor could be neosynephrine if cards ok Will need at least echo - Remains tachy 130s dw fam and [place] [employer]ER CC 30 Vitals Vitals Vital Signs Date Time Temp Pulse Resp B/P (MAP) Pulse Ox O2 Delivery O2 Flow Rate FiO2 03/09/18 09:47 23 90 Ventilator 03/09/18 05:00 2.0 03/09/18 03:00 130 114/54 (74) 03/08/18 19:00 99.8 99.8 Physical Exam General: Cooperative, No acute distress Heart: Regular rate, Normal S1, Normal S2, Other (increased rate, regular rythmn) Lungs: Clear, Other Abdomen: Soft, No tenderness Extremities: No clubbing, No cyanosis, No edema Skin: No rashes, Other (warm, dry) Labs LABS Laboratory Tests Test 03/09/18 08:10 03/09/18 08:44 03/09/18 08:45 03/09/18 09:20 O2 Saturation 90 % (92-99) Arterial Blood pH 7.29 (7.35-7.45) Arterial Blood pCO2 at Patient Temp 44 mmHg (35-46) Arterial Blood pO2 at Patient Temp 66 mmHg (85-108) Arterial Blood HCO3 21 mmol/L (21-28) Arterial Blood Base Excess -6 mmol/L (-3-3) Oxyhemoglobin 89.6 % Methemoglobin 0.2 % (0.0-1.9) Carbon Monoxide, Quantitative 0.7 % (0.0-1.9) FiO2 100 Glucose (Fingerstick) 222 mg/dL (70-99) Sodium Level 134 mmol/L (136-145) Potassium Level 4.6 mmol/L (3.5-5.1) Chloride Level 99 mmol/L (98-107) Carbon Dioxide Level 22 mmol/L (21-32) Anion Gap 13 (6-14) Blood Urea Nitrogen 20 mg/dL (8-26) Creatinine 1.8 mg/dL (0.7-1.3) Estimated GFR (Cockcroft-Gault) 42.9 BUN/Creatinine Ratio 11 (6-20) Glucose Level 239 mg/dL (70-99) Calcium Level 8.6 mg/dL (8.5-10.1) Magnesium Level 2.0 mg/dL (1.8-2.4) Total Bilirubin 0.8 mg/dL (0.2-1.0) Aspartate Amino Transf (AST/SGOT) 61 U/L (15-37) Alanine Aminotransferase (ALT/SGPT) 90 U/L (16-63) Alkaline Phosphatase 94 U/L (46-116) Creatine Kinase 40 U/L (39-308) Creatine Kinase MB (Mass) < 0.5 ng/mL (0.0-3.6) Creatine Kinase MB Relative Index < 0.5 % (0-4) Troponin I Quantitative 0.077 ng/mL (0.000-0.055) Total Protein 7.6 g/dL (6.4-8.2) Albumin 2.5 g/dL (3.4-5.0) Albumin/Globulin Ratio 0.5 (1.0-1.7) White Blood Count 19.1 x10^3/uL (4.0-11.0) Red Blood Count 4.59 x10^6/uL (4.30-5.70) Hemoglobin 13.9 g/dL (13.0-17.5) Hematocrit 41.3 % (39.0-53.0) Mean Corpuscular Volume 90 fL (79-100) Mean Corpuscular Hemoglobin 30 pg (25-35) Mean Corpuscular Hemoglobin Concent 34 g/dL (31-37) Red Cell Distribution Width 13.5 % (11.5-14.5) Platelet Count 282 x10^3/uL (140-400) Neutrophils (%) (Auto) 84 % (31-73) Lymphocytes (%) (Auto) 7 % (24-48) Monocytes (%) (Auto) 9 % (0-9) Eosinophils (%) (Auto) 0 % (0-3) Basophils (%) (Auto) 0 % (0-3) Neutrophils # (Auto) 16.1 x10^3uL (1.8-7.7) Lymphocytes # (Auto) 1.3 x10^3/uL (1.0-4.8) Monocytes # (Auto) 1.7 x10^3/uL (0.0-1.1) Eosinophils # (Auto) 0.0 x10^3/uL (0.0-0.7) Basophils # (Auto) 0.1 x10^3/uL (0.0-0.2) Prothrombin Time 14.8 SEC (11.7-14.0) Prothromb Time International Ratio 1.2 (0.8-1.1) Review of Systems Review of Systems On the vent Assessment and Plan Assessmemt and Plan Problems Medical Problems: (1) Diverticulitis of colon with perforation Status: Acute Comment Review of Relevant I have reviewed the following items kalin (where applicable) has been applied. Labs Laboratory Tests Test 03/07/18 11:25 03/07/18 12:18 03/07/18 16:40 03/08/18 05:20 White Blood Count 14.7 x10^3/uL (4.0-11.0) 14.8 x10^3/uL (4.0-11.0) Red Blood Count 4.99 x10^6/uL (4.30-5.70) 4.52 x10^6/uL (4.30-5.70) Hemoglobin 14.9 g/dL (13.0-17.5) 13.5 g/dL (13.0-17.5) Hematocrit 44.1 % (39.0-53.0) 40.5 % (39.0-53.0) Mean Corpuscular Volume 89 fL (79-100) 90 fL (79-100) Mean Corpuscular Hemoglobin 30 pg (25-35) 30 pg (25-35) Mean Corpuscular Hemoglobin Concent 34 g/dL (31-37) 33 g/dL (31-37) Red Cell Distribution Width 13.1 % (11.5-14.5) 13.5 % (11.5-14.5) Platelet Count 235 x10^3/uL (140-400) 213 x10^3/uL (140-400) Neutrophils (%) (Auto) 82 % (31-73) 80 % (31-73) Lymphocytes (%) (Auto) 11 % (24-48) 12 % (24-48) Monocytes (%) (Auto) 5 % (0-9) 7 % (0-9) Eosinophils (%) (Auto) 1 % (0-3) 1 % (0-3) Basophils (%) (Auto) 0 % (0-3) 0 % (0-3) Neutrophils # (Auto) 12.1 x10^3uL (1.8-7.7) 11.8 x10^3uL (1.8-7.7) Lymphocytes # (Auto) 1.6 x10^3/uL (1.0-4.8) 1.8 x10^3/uL (1.0-4.8) Monocytes # (Auto) 0.8 x10^3/uL (0.0-1.1) 1.0 x10^3/uL (0.0-1.1) Eosinophils # (Auto) 0.2 x10^3/uL (0.0-0.7) 0.1 x10^3/uL (0.0-0.7) Basophils # (Auto) 0.0 x10^3/uL (0.0-0.2) 0.1 x10^3/uL (0.0-0.2) Sodium Level 136 mmol/L (136-145) Potassium Level 4.0 mmol/L (3.5-5.1) Chloride Level 99 mmol/L (98-107) Carbon Dioxide Level 26 mmol/L (21-32) Anion Gap 11 (6-14) Blood Urea Nitrogen 14 mg/dL (8-26) Creatinine 1.0 mg/dL (0.7-1.3) Estimated GFR (Cockcroft-Gault) 84.5 BUN/Creatinine Ratio 14 (6-20) Glucose Level 162 mg/dL (70-99) Calcium Level 9.8 mg/dL (8.5-10.1) Total Bilirubin 0.8 mg/dL (0.2-1.0) Aspartate Amino Transf (AST/SGOT) 49 U/L (15-37) Alanine Aminotransferase (ALT/SGPT) 141 U/L (16-63) Alkaline Phosphatase 104 U/L (46-116) Creatine Kinase 24 U/L (39-308) Total Protein 7.9 g/dL (6.4-8.2) Albumin 3.6 g/dL (3.4-5.0) Albumin/Globulin Ratio 0.8 (1.0-1.7) Urine Collection Type Unknown Urine Color Jacquelyn Urine Clarity Clear Urine pH 6.5 Urine Specific Girard 1.020 Urine Protein 30 mg/dL (NEG-TRACE) Urine Glucose (UA) Negative mg/dL (NEG) Urine Ketones (Stick) Negative mg/dL (NEG) Urine Blood Negative (NEG) Urine Nitrite Negative (NEG) Urine Bilirubin Negative (NEG) Urine Urobilinogen Dipstick 0.2 mg/dL (0.2 mg/dL) Urine Leukocyte Esterase Negative (NEG) Urine RBC 0 /HPF (0-2) Urine WBC 1-4 /HPF (0-4) Urine Squamous Epithelial Cells Few /LPF Urine Transitional Epithelial Cells Few /LPF Urine Bacteria 0 /HPF (0-FEW) Urine Hyaline Casts Few /HPF Urine Mucus Marked /LPF Urine Opiates Screen Neg (NEG) Urine Methadone Screen Neg (NEG) Urine Barbiturates Neg (NEG) Urine Phencyclidine Screen Neg (NEG) Urine Amphetamine/Methamphetamine Neg (NEG) Urine Benzodiazepines Screen Neg (NEG) Urine Cocaine Screen Pos (NEG) Urine Cannabinoids Screen Pos (NEG) Urine Ethyl Alcohol Neg (NEG) Lactic Acid Level 1.3 mmol/L (0.4-2.0) Test 03/09/18 08:10 03/09/18 08:44 03/09/18 08:45 03/09/18 09:20 O2 Saturation 90 % (92-99) Arterial Blood pH 7.29 (7.35-7.45) Arterial Blood pCO2 at Patient Temp 44 mmHg (35-46) Arterial Blood pO2 at Patient Temp 66 mmHg (85-108) Arterial Blood HCO3 21 mmol/L (21-28) Arterial Blood Base Excess -6 mmol/L (-3-3) Oxyhemoglobin 89.6 % Methemoglobin 0.2 % (0.0-1.9) Carbon Monoxide, Quantitative 0.7 % (0.0-1.9) FiO2 100 Glucose (Fingerstick) 222 mg/dL (70-99) Sodium Level 134 mmol/L (136-145) Potassium Level 4.6 mmol/L (3.5-5.1) Chloride Level 99 mmol/L (98-107) Carbon Dioxide Level 22 mmol/L (21-32) Anion Gap 13 (6-14) Blood Urea Nitrogen 20 mg/dL (8-26) Creatinine 1.8 mg/dL (0.7-1.3) Estimated GFR (Cockcroft-Gault) 42.9 BUN/Creatinine Ratio 11 (6-20) Glucose Level 239 mg/dL (70-99) Calcium Level 8.6 mg/dL (8.5-10.1) Magnesium Level 2.0 mg/dL (1.8-2.4) Total Bilirubin 0.8 mg/dL (0.2-1.0) Aspartate Amino Transf (AST/SGOT) 61 U/L (15-37) Alanine Aminotransferase (ALT/SGPT) 90 U/L (16-63) Alkaline Phosphatase 94 U/L (46-116) Creatine Kinase 40 U/L (39-308) Creatine Kinase MB (Mass) < 0.5 ng/mL (0.0-3.6) Creatine Kinase MB Relative Index < 0.5 % (0-4) Troponin I Quantitative 0.077 ng/mL (0.000-0.055) Total Protein 7.6 g/dL (6.4-8.2) Albumin 2.5 g/dL (3.4-5.0) Albumin/Globulin Ratio 0.5 (1.0-1.7) White Blood Count 19.1 x10^3/uL (4.0-11.0) Red Blood Count 4.59 x10^6/uL (4.30-5.70) Hemoglobin 13.9 g/dL (13.0-17.5) Hematocrit 41.3 % (39.0-53.0) Mean Corpuscular Volume 90 fL (79-100) Mean Corpuscular Hemoglobin 30 pg (25-35) Mean Corpuscular Hemoglobin Concent 34 g/dL (31-37) Red Cell Distribution Width 13.5 % (11.5-14.5) Platelet Count 282 x10^3/uL (140-400) Neutrophils (%) (Auto) 84 % (31-73) Lymphocytes (%) (Auto) 7 % (24-48) Monocytes (%) (Auto) 9 % (0-9) Eosinophils (%) (Auto) 0 % (0-3) Basophils (%) (Auto) 0 % (0-3) Neutrophils # (Auto) 16.1 x10^3uL (1.8-7.7) Lymphocytes # (Auto) 1.3 x10^3/uL (1.0-4.8) Monocytes # (Auto) 1.7 x10^3/uL (0.0-1.1) Eosinophils # (Auto) 0.0 x10^3/uL (0.0-0.7) Basophils # (Auto) 0.1 x10^3/uL (0.0-0.2) Prothrombin Time 14.8 SEC (11.7-14.0) Prothromb Time International Ratio 1.2 (0.8-1.1) Laboratory Tests Test 03/09/18 08:10 03/09/18 08:44 03/09/18 08:45 03/09/18 09:20 O2 Saturation 90 % (92-99) Arterial Blood pH 7.29 (7.35-7.45) Arterial Blood pCO2 at Patient Temp 44 mmHg (35-46) Arterial Blood pO2 at Patient Temp 66 mmHg (85-108) Arterial Blood HCO3 21 mmol/L (21-28) Arterial Blood Base Excess -6 mmol/L (-3-3) Oxyhemoglobin 89.6 % Methemoglobin 0.2 % (0.0-1.9) Carbon Monoxide, Quantitative 0.7 % (0.0-1.9) FiO2 100 Glucose (Fingerstick) 222 mg/dL (70-99) Sodium Level 134 mmol/L (136-145) Potassium Level 4.6 mmol/L (3.5-5.1) Chloride Level 99 mmol/L (98-107) Carbon Dioxide Level 22 mmol/L (21-32) Anion Gap 13 (6-14) Blood Urea Nitrogen 20 mg/dL (8-26) Creatinine 1.8 mg/dL (0.7-1.3) Estimated GFR (Cockcroft-Gault) 42.9 BUN/Creatinine Ratio 11 (6-20) Glucose Level 239 mg/dL (70-99) Calcium Level 8.6 mg/dL (8.5-10.1) Magnesium Level 2.0 mg/dL (1.8-2.4) Total Bilirubin 0.8 mg/dL (0.2-1.0) Aspartate Amino Transf (AST/SGOT) 61 U/L (15-37) Alanine Aminotransferase (ALT/SGPT) 90 U/L (16-63) Alkaline Phosphatase 94 U/L (46-116) Creatine Kinase 40 U/L (39-308) Creatine Kinase MB (Mass) < 0.5 ng/mL (0.0-3.6) Creatine Kinase MB Relative Index < 0.5 % (0-4) Troponin I Quantitative 0.077 ng/mL (0.000-0.055) Total Protein 7.6 g/dL (6.4-8.2) Albumin 2.5 g/dL (3.4-5.0) Albumin/Globulin Ratio 0.5 (1.0-1.7) White Blood Count 19.1 x10^3/uL (4.0-11.0) Red Blood Count 4.59 x10^6/uL (4.30-5.70) Hemoglobin 13.9 g/dL (13.0-17.5) Hematocrit 41.3 % (39.0-53.0) Mean Corpuscular Volume 90 fL (79-100) Mean Corpuscular Hemoglobin 30 pg (25-35) Mean Corpuscular Hemoglobin Concent 34 g/dL (31-37) Red Cell Distribution Width 13.5 % (11.5-14.5) Platelet Count 282 x10^3/uL (140-400) Neutrophils (%) (Auto) 84 % (31-73) Lymphocytes (%) (Auto) 7 % (24-48) Monocytes (%) (Auto) 9 % (0-9) Eosinophils (%) (Auto) 0 % (0-3) Basophils (%) (Auto) 0 % (0-3) Neutrophils # (Auto) 16.1 x10^3uL (1.8-7.7) Lymphocytes # (Auto) 1.3 x10^3/uL (1.0-4.8) Monocytes # (Auto) 1.7 x10^3/uL (0.0-1.1) Eosinophils # (Auto) 0.0 x10^3/uL (0.0-0.7) Basophils # (Auto) 0.1 x10^3/uL (0.0-0.2) Prothrombin Time 14.8 SEC (11.7-14.0) Prothromb Time International Ratio 1.2 (0.8-1.1) Microbiology 03/07/18 Blood Culture - Preliminary, Resulted NO GROWTH AFTER 1 DAY Medications Current Medications Sodium Chloride (Normal Saline Flush) 3 ml QSHIFT PRN IV AFTER MEDS AND BLOOD DRAWS; Start 03/07/18 at 11:00 Sodium Chloride 1,000 ml @ 1,000 mls/hr Q1H IV Last administered on 03/07/18at 11:32; Start 03/07/18 at 11:00; Stop 03/07/18 at 11:59; Status DC Iohexol (Omnipaque 300 Mg/ml) 75 ml 1X ONCE IV Last administered on 03/07/18at 12:46; Start 03/07/18 at 11:15; Stop 03/07/18 at 11:16; Status DC Info (CONTRAST GIVEN -- Rx MONITORING) 1 each PRN DAILY PRN MC SEE COMMENTS; Start 03/07/18 at 11:15; Stop 03/09/18 at 11:14 Sodium Chloride 1,000 ml @ 1,000 mls/hr 1X ONCE IV Last administered on at 12:37; Start 03/07/18 at 12:00; Stop 03/07/18 at 12:59; Status DC Fentanyl Citrate (Fentanyl 2ml Vial) 50 mcg 1X ONCE IV Last administered on 03/07/18at 13:07; Start 03/07/18 at 13:00; Stop 03/07/18 at 13:01; Status DC Metronidazole 100 ml @ 100 mls/hr 1X ONCE IV ; Start 03/07/18 at 13:30; Stop at 14:29; Status DC Ciprofloxacin/ Dextrose 200 ml @ 200 mls/hr ONCE STAT IV Last administered on 03/07/18at 13:42; Start 03/07/18 at 13:12; Stop 03/07/18 at 14:11; Status DC Piperacillin Sod/ Tazobactam Sod 3.375 gm/Sodium Chloride 50 ml @ 100 mls/hr 1X ONCE IV Last administered on 03/07/18at 14:43; Start 03/07/18 at 14:30; Stop 03/07/18 at 14:59; Status DC Diphenhydramine HCl (Benadryl) 50 mg 1X ONCE IVP Last administered on at 14:33; Start 03/07/18 at 14:15; Stop 03/07/18 at 14:16; Status DC Fentanyl Citrate (Fentanyl 2ml Vial) 25 mcg 1X ONCE IV ; Start 03/07/18 at 14:15 ; Stop 03/07/18 at 14:16; Status Cancel Morphine Sulfate (Morphine Sulfate) 4 mg 1X ONCE IV Last administered on at 14:35; Start 03/07/18 at 14:30; Stop 03/07/18 at 14:31; Status DC Ondansetron HCl (Zofran) 4 mg PRN Q8HRS PRN IV NAUSEA/VOMITING; Start 03/07/18 at 14:30; Stop 03/08/18 at 14:29; Status DC Morphine Sulfate (Morphine Sulfate) 4 mg PRN Q2HR PRN IV PAIN Last administered on 03/08/18at 08:20; Start 03/07/18 at 14:30; Stop 03/08/18 at 14:29; Status DC Piperacillin Sod/ Tazobactam Sod 3.375 gm/Sodium Chloride 50 ml @ 100 mls/hr Q6HRS IV Last administered on 03/09/18at 00:05; Start 03/07/18 at 18:00 Metronidazole 100 ml @ 100 mls/hr Q8HRS IV Last administered on 03/08/18at 22:12 ; Start 03/07/18 at 22:00 Sodium Chloride 500 ml @ 500 mls/hr 1X ONCE IV Last administered on 03/07/18at 16:45; Start 03/07/18 at 16:45; Stop 03/07/18 at 17:44; Status DC Amino Acids/ Glycerin/ Electrolytes 1,000 ml @ 80 mls/hr [id number] IV Last administered on 03/08/18at 18:18; Start 03/07/18 at 16:45 Acetaminophen (Tylenol) 650 mg PRN Q6HRS PRN PO fever ; Start 03/07/18 at 18:00 Pantoprazole Sodium (PROTONIX VIAL for IV PUSH) 40 mg DAILYAC IVP Last administered on 03/08/18at 08:19; Start 03/08/18 at 07:45 Morphine Sulfate (Morphine Sulfate) 4 mg PRN Q2HR PRN IV MODRATE PAIN Last administered on 03/09/18at 04:26; Start 03/08/18 at 14:45 Lorazepam (Ativan) 1 mg PRN Q4HRS PRN IV ANXIETY / AGITATION Last administered on 03/08/18at 21:41; Start 03/08/18 at 20:30 Ondansetron HCl (Zofran) 4 mg PRN Q6HRS PRN IV NAUSEA/VOMITING 1ST CHOICE Last administered on 03/09/18at 02:07; Start 03/09/18 at 02:00 Etomidate (Amidate) 20 mg STK-MED ONCE IV ; Start 03/09/18 at 06:55; Stop at 06:56; Status DC Norepinephrine Bitartrate 250 ml @ As Directed STK-MED ONCE IV ; Start 03/09/18 at 06:55; Stop 03/09/18 at 06:56; Status DC Midazolam HCl (Versed) 5 mg STK-MED ONCE .ROUTE ; Start 03/09/18 at 06:55; Stop 03/09/18 at 06:56; Status DC Fentanyl Citrate (Fentanyl 2ml Vial) 100 mcg STK-MED ONCE .ROUTE ; Start at 06:55; Stop 03/09/18 at 06:56; Status DC Succinylcholine Chloride (Anectine) 200 mg STK-MED ONCE .ROUTE ; Start 03/09/18 at 06:56; Stop 03/09/18 at 06:57; Status DC Fentanyl Citrate 30 ml @ 0 mls/hr CONT PRN IV PER PROTOCOL Last administered on 03/09/18at 09:47; Start 03/09/18 at 07:00 Fentanyl Citrate (Fentanyl 2ml Vial) 25 mcg PRN Q1HR PRN IV MILD PAIN; Start at 07:00 Fentanyl Citrate (Fentanyl 2ml Vial) 50 mcg PRN Q1HR PRN IV MOD TO SEVERE PAIN ; Start 03/09/18 at 07:00 Chlorhexidine Gluconate (Peridex) 15 ml BID MM ; Start 03/09/18 at 09:00 Midazolam HCl (Versed) 2 mg PRN Q30MIN PRN IV SEDATION; Start 03/09/18 at 07:00 Midazolam HCl 100 ml @ 0 mls/hr CONT PRN IV PER PROTOCOL Last administered on at 09:34; Start 03/09/18 at 07:00 Enoxaparin Sodium (Lovenox 40mg Syringe) 40 mg Q12H SQ ; Start 03/09/18 at 09:00 Vitals/I & O Vital Sign - Last 24 Hours 03/08/18 03/08/18 03/08/18 03/08/18 11:00 11:31 12:00 14:36 Temp 99.0 99.0 Pulse 99 Resp 18 16 16 B/P (MAP) 140/65 (90) Pulse Ox 90 O2 Delivery Room Air Nasal Cannula Nasal Cannula O2 Flow Rate 2.0 2.0 2.0 03/08/18 03/08/18 03/08/18 03/08/18 15:00 17:45 19:00 19:47 Temp 99.7 99.8 99.7 99.8 Pulse 93 115 Resp 18 16 18 16 B/P (MAP) 125/82 (96) 131/97 (108) Pulse Ox 91 91 O2 Delivery Room Air Room Air Room Air Room Air 03/08/18 03/08/18 03/08/18 03/09/18 19:50 22:15 23:00 01:48 Pulse 113 Resp 16 18 16 B/P (MAP) 164/87 (112) Pulse Ox 90 O2 Delivery Nasal Cannula Nasal Cannula Room Air Nasal Cannula O2 Flow Rate 2.0 2.0 03/09/18 03/09/18 03/09/18 03/09/18 03:00 04:26 05:00 08:01 Pulse 130 Resp 18 20 20 B/P (MAP) 114/54 (74) Pulse Ox 92 92 90 O2 Delivery Room Air Nasal Cannula Nasal Cannula Ventilator O2 Flow Rate 2.0 2.0 03/09/18 03/09/18 09:21 09:47 Resp 23 Pulse Ox 89 90 O2 Delivery Ventilator Ventilator Intake and Output 03/08/18 03/08/18 03/09/18 15:00 23:00 07:00 Intake Total 1000 ml 2780 ml Output Total 525 ml Balance 1000 ml 2255 ml CASS ARMENTA MD Mar 09, 2018 10:09
[2018-03-09] MEDS: IV NORMAL SALINE 1000ML BAG 1,000 ML IV SCH (10:15)
[2018-03-09] MEDS ORDERED: IV NORMAL SALINE 1000ML BAG 1,000 ML IV ONE (10:15)
[2018-03-09] MEDS ORDERED: PHENYLEPHRINE INJ 20 MG in IV NORMAL SALINE 250ML 250 ML IV ONE (10:45)
[2018-03-09] MEDS: ENOXAPARIN 40 MG/0.4 ML SYRINGE. SQ SCH ×2 (11:24→22:23)
[2018-03-09] MEDS ORDERED: IOHEXOL 300 MG/ML 100ML VIAL. IV ONE (11:30)
--- NOTE | 2018-03-09 11:46 | PDOC ---
PULMONARY PROGRESS NOTES Vitals Vital Signs Date Time Temp Pulse Resp B/P (MAP) Pulse Ox O2 Delivery O2 Flow Rate FiO2 03/09/18 09:47 23 90 Ventilator 03/09/18 05:00 2.0 03/09/18 03:00 130 114/54 (74) 03/08/18 19:00 99.8 99.8 Lungs: Clear, Other Labs Laboratory Tests Test 03/07/18 12:18 03/07/18 16:40 03/08/18 05:20 03/09/18 08:10 Urine Collection Type Unknown Urine Color Jacquelyn Urine Clarity Clear Urine pH 6.5 Urine Specific [place] 1.020 Urine Protein 30 mg/dL (NEG-TRACE) Urine Glucose (UA) Negative mg/dL (NEG) Urine Ketones (Stick) Negative mg/dL (NEG) Urine Blood Negative (NEG) Urine Nitrite Negative (NEG) Urine Bilirubin Negative (NEG) Urine Urobilinogen Dipstick 0.2 mg/dL (0.2 mg/dL) Urine Leukocyte Esterase Negative (NEG) Urine RBC 0 /HPF (0-2) Urine WBC 1-4 /HPF (0-4) Urine Squamous Epithelial Cells Few /LPF Urine Transitional Epithelial Cells Few /LPF Urine Bacteria 0 /HPF (0-FEW) Urine Hyaline Casts Few /HPF Urine Mucus Marked /LPF Urine Opiates Screen Neg (NEG) Urine Methadone Screen Neg (NEG) Urine Barbiturates Neg (NEG) Urine Phencyclidine Screen Neg (NEG) Urine Amphetamine/Methamphetamine Neg (NEG) Urine Benzodiazepines Screen Neg (NEG) Urine Cocaine Screen Pos (NEG) Urine Cannabinoids Screen Pos (NEG) Urine Ethyl Alcohol Neg (NEG) Lactic Acid Level 1.3 mmol/L (0.4-2.0) White Blood Count 14.8 x10^3/uL (4.0-11.0) Red Blood Count 4.52 x10^6/uL (4.30-5.70) Hemoglobin 13.5 g/dL (13.0-17.5) Hematocrit 40.5 % (39.0-53.0) Mean Corpuscular Volume 90 fL (79-100) Mean Corpuscular Hemoglobin 30 pg (25-35) Mean Corpuscular Hemoglobin Concent 33 g/dL (31-37) Red Cell Distribution Width 13.5 % (11.5-14.5) Platelet Count 213 x10^3/uL (140-400) Neutrophils (%) (Auto) 80 % (31-73) Lymphocytes (%) (Auto) 12 % (24-48) Monocytes (%) (Auto) 7 % (0-9) Eosinophils (%) (Auto) 1 % (0-3) Basophils (%) (Auto) 0 % (0-3) Neutrophils # (Auto) 11.8 x10^3uL (1.8-7.7) Lymphocytes # (Auto) 1.8 x10^3/uL (1.0-4.8) Monocytes # (Auto) 1.0 x10^3/uL (0.0-1.1) Eosinophils # (Auto) 0.1 x10^3/uL (0.0-0.7) Basophils # (Auto) 0.1 x10^3/uL (0.0-0.2) O2 Saturation 90 % (92-99) Arterial Blood pH 7.29 (7.35-7.45) Arterial Blood pCO2 at Patient Temp 44 mmHg (35-46) Arterial Blood pO2 at Patient Temp 66 mmHg (85-108) Arterial Blood HCO3 21 mmol/L (21-28) Arterial Blood Base Excess -6 mmol/L (-3-3) Oxyhemoglobin 89.6 % Methemoglobin 0.2 % (0.0-1.9) Carbon Monoxide, Quantitative 0.7 % (0.0-1.9) FiO2 100 Test 03/09/18 08:44 03/09/18 08:45 03/09/18 09:20 03/09/18 09:43 Glucose (Fingerstick) 222 mg/dL (70-99) Sodium Level 134 mmol/L (136-145) Potassium Level 4.6 mmol/L (3.5-5.1) Chloride Level 99 mmol/L (98-107) Carbon Dioxide Level 22 mmol/L (21-32) Anion Gap 13 (6-14) Blood Urea Nitrogen 20 mg/dL (8-26) Creatinine 1.8 mg/dL (0.7-1.3) Estimated GFR (Cockcroft-Gault) 42.9 BUN/Creatinine Ratio 11 (6-20) Glucose Level 239 mg/dL (70-99) Calcium Level 8.6 mg/dL (8.5-10.1) Magnesium Level 2.0 mg/dL (1.8-2.4) Total Bilirubin 0.8 mg/dL (0.2-1.0) Aspartate Amino Transf (AST/SGOT) 61 U/L (15-37) Alanine Aminotransferase (ALT/SGPT) 90 U/L (16-63) Alkaline Phosphatase 94 U/L (46-116) Creatine Kinase 40 U/L (39-308) Creatine Kinase MB (Mass) < 0.5 ng/mL (0.0-3.6) Creatine Kinase MB Relative Index < 0.5 % (0-4) Troponin I Quantitative 0.077 ng/mL (0.000-0.055) Total Protein 7.6 g/dL (6.4-8.2) Albumin 2.5 g/dL (3.4-5.0) Albumin/Globulin Ratio 0.5 (1.0-1.7) White Blood Count 19.1 x10^3/uL (4.0-11.0) Red Blood Count 4.59 x10^6/uL (4.30-5.70) Hemoglobin 13.9 g/dL (13.0-17.5) Hematocrit 41.3 % (39.0-53.0) Mean Corpuscular Volume 90 fL (79-100) Mean Corpuscular Hemoglobin 30 pg (25-35) Mean Corpuscular Hemoglobin Concent 34 g/dL (31-37) Red Cell Distribution Width 13.5 % (11.5-14.5) Platelet Count 282 x10^3/uL (140-400) Neutrophils (%) (Auto) 84 % (31-73) Lymphocytes (%) (Auto) 7 % (24-48) Monocytes (%) (Auto) 9 % (0-9) Eosinophils (%) (Auto) 0 % (0-3) Basophils (%) (Auto) 0 % (0-3) Neutrophils # (Auto) 16.1 x10^3uL (1.8-7.7) Lymphocytes # (Auto) 1.3 x10^3/uL (1.0-4.8) Monocytes # (Auto) 1.7 x10^3/uL (0.0-1.1) Eosinophils # (Auto) 0.0 x10^3/uL (0.0-0.7) Basophils # (Auto) 0.1 x10^3/uL (0.0-0.2) Prothrombin Time 14.8 SEC (11.7-14.0) Prothromb Time International Ratio 1.2 (0.8-1.1) Urine Opiates Screen Pos (NEG) Urine Methadone Screen Neg (NEG) Urine Barbiturates Neg (NEG) Urine Phencyclidine Screen Neg (NEG) Urine Amphetamine/Methamphetamine Neg (NEG) Urine Benzodiazepines Screen Pos (NEG) Urine Cocaine Screen Pos (NEG) Urine Cannabinoids Screen Pos (NEG) Urine Ethyl Alcohol Neg (NEG) Laboratory Tests Test 03/09/18 08:10 03/09/18 08:44 03/09/18 08:45 03/09/18 09:20 O2 Saturation 90 % (92-99) Arterial Blood pH 7.29 (7.35-7.45) Arterial Blood pCO2 at Patient Temp 44 mmHg (35-46) Arterial Blood pO2 at Patient Temp 66 mmHg (85-108) Arterial Blood HCO3 21 mmol/L (21-28) Arterial Blood Base Excess -6 mmol/L (-3-3) Oxyhemoglobin 89.6 % Methemoglobin 0.2 % (0.0-1.9) Carbon Monoxide, Quantitative 0.7 % (0.0-1.9) FiO2 100 Glucose (Fingerstick) 222 mg/dL (70-99) Sodium Level 134 mmol/L (136-145) Potassium Level 4.6 mmol/L (3.5-5.1) Chloride Level 99 mmol/L (98-107) Carbon Dioxide Level 22 mmol/L (21-32) Anion Gap 13 (6-14) Blood Urea Nitrogen 20 mg/dL (8-26) Creatinine 1.8 mg/dL (0.7-1.3) Estimated GFR (Cockcroft-Gault) 42.9 BUN/Creatinine Ratio 11 (6-20) Glucose Level 239 mg/dL (70-99) Calcium Level 8.6 mg/dL (8.5-10.1) Magnesium Level 2.0 mg/dL (1.8-2.4) Total Bilirubin 0.8 mg/dL (0.2-1.0) Aspartate Amino Transf (AST/SGOT) 61 U/L (15-37) Alanine Aminotransferase (ALT/SGPT) 90 U/L (16-63) Alkaline Phosphatase 94 U/L (46-116) Creatine Kinase 40 U/L (39-308) Creatine Kinase MB (Mass) < 0.5 ng/mL (0.0-3.6) Creatine Kinase MB Relative Index < 0.5 % (0-4) Troponin I Quantitative 0.077 ng/mL (0.000-0.055) Total Protein 7.6 g/dL (6.4-8.2) Albumin 2.5 g/dL (3.4-5.0) Albumin/Globulin Ratio 0.5 (1.0-1.7) White Blood Count 19.1 x10^3/uL (4.0-11.0) Red Blood Count 4.59 x10^6/uL (4.30-5.70) Hemoglobin 13.9 g/dL (13.0-17.5) Hematocrit 41.3 % (39.0-53.0) Mean Corpuscular Volume 90 fL (79-100) Mean Corpuscular Hemoglobin 30 pg (25-35) Mean Corpuscular Hemoglobin Concent 34 g/dL (31-37) Red Cell Distribution Width 13.5 % (11.5-14.5) Platelet Count 282 x10^3/uL (140-400) Neutrophils (%) (Auto) 84 % (31-73) Lymphocytes (%) (Auto) 7 % (24-48) Monocytes (%) (Auto) 9 % (0-9) Eosinophils (%) (Auto) 0 % (0-3) Basophils (%) (Auto) 0 % (0-3) Neutrophils # (Auto) 16.1 x10^3uL (1.8-7.7) Lymphocytes # (Auto) 1.3 x10^3/uL (1.0-4.8) Monocytes # (Auto) 1.7 x10^3/uL (0.0-1.1) Eosinophils # (Auto) 0.0 x10^3/uL (0.0-0.7) Basophils # (Auto) 0.1 x10^3/uL (0.0-0.2) Prothrombin Time 14.8 SEC (11.7-14.0) Prothromb Time International Ratio 1.2 (0.8-1.1) Test 03/09/18 09:43 Urine Opiates Screen Pos (NEG) Urine Methadone Screen Neg (NEG) Urine Barbiturates Neg (NEG) Urine Phencyclidine Screen Neg (NEG) Urine Amphetamine/Methamphetamine Neg (NEG) Urine Benzodiazepines Screen Pos (NEG) Urine Cocaine Screen Pos (NEG) Urine Cannabinoids Screen Pos (NEG) Urine Ethyl Alcohol Neg (NEG) Impression . NOTE DICTATED ACUTE RESP FAILURE S/P CODE BLUE SEC TO SEPTIC SHOCK SEE ORDERS THANKS SUZY MARQUEZ MD Mar 09, 2018 11:46
[2018-03-09 11:47] LABS: % BANDS 8 % (0-9); % LYMPHS 7 % (24-48); % MONOS 6 % (0-10); % MYELOS 1 % (0-0); % SEGS 78 % (35-66); PLT ESTIMATE ADEQUATE (ADEQUATE)
--- NOTE | 2018-03-09 12:18 | PDOC2 ---
CONSULT Date of Consult Date of Consult DATE: 03/09/18 TIME: 12:17 Reason for Consult Reason for Consult: s/p code blue Referring Physician Referring Physician: Dr. Larios Identification/Chief Complaint Chief Complaint Abdominal pain Source Source: Chart review History of Present Illness Reason for Visit: 37-year-old male without any previous cardiac history presented with abdominal pain and diarrhea and was found to have sigmoid diverticulitis with perforation. He was admitted and started on intravenous antibiotics. Earlier this morning, he was apparently found on the ground in his room unresponsive. CPR was initiated and continued for 2 minutes with ROSC. He had to be cardioverted once for ventricular tachycardia during the resuscitation efforts. However no rhythm strips showing VT/VF were found. Patient looks like he was in sinus rhythm when the shock was administered, according to the rhythm strips in the chart. He is presently intubated and sedated. Past Medical History Cardiovascular: No pertinent hx Pulmonary: No pertinent hx GI: No pertinent hx Past Surgical History Past Surgical History: No pertinent history Family History Family History: No Significant Social History Drugs: Cocaine, Marijuana Current Problem List Problem List Problems Medical Problems: (1) Diverticulitis of colon with perforation Status: Acute Current Medications Current Medications Current Medications Sodium Chloride (Normal Saline Flush) 3 ml QSHIFT PRN IV AFTER MEDS AND BLOOD DRAWS; Start 03/07/18 at 11:00 Sodium Chloride 1,000 ml @ 1,000 mls/hr Q1H IV Last administered on 03/07/18at 11:32; Start 03/07/18 at 11:00; Stop 03/07/18 at 11:59; Status DC Iohexol (Omnipaque 300 Mg/ml) 75 ml 1X ONCE IV Last administered on 03/07/18at 12:46; Start 03/07/18 at 11:15; Stop 03/07/18 at 11:16; Status DC Info (CONTRAST GIVEN -- Rx MONITORING) 1 each PRN DAILY PRN MC SEE COMMENTS; Start 03/07/18 at 11:15; Stop 03/09/18 at 11:14; Status DC Sodium Chloride 1,000 ml @ 1,000 mls/hr 1X ONCE IV Last administered on at 12:37; Start 03/07/18 at 12:00; Stop 03/07/18 at 12:59; Status DC Fentanyl Citrate (Fentanyl 2ml Vial) 50 mcg 1X ONCE IV Last administered on 03/07/18at 13:07; Start 03/07/18 at 13:00; Stop 03/07/18 at 13:01; Status DC Metronidazole 100 ml @ 100 mls/hr 1X ONCE IV ; Start 03/07/18 at 13:30; Stop at 14:29; Status DC Ciprofloxacin/ Dextrose 200 ml @ 200 mls/hr ONCE STAT IV Last administered on 03/07/18at 13:42; Start 03/07/18 at 13:12; Stop 03/07/18 at 14:11; Status DC Piperacillin Sod/ Tazobactam Sod 3.375 gm/Sodium Chloride 50 ml @ 100 mls/hr 1X ONCE IV Last administered on 03/07/18at 14:43; Start 03/07/18 at 14:30; Stop 03/07/18 at 14:59; Status DC Diphenhydramine HCl (Benadryl) 50 mg 1X ONCE IVP Last administered on at 14:33; Start 03/07/18 at 14:15; Stop 03/07/18 at 14:16; Status DC Fentanyl Citrate (Fentanyl 2ml Vial) 25 mcg 1X ONCE IV ; Start 03/07/18 at 14:15 ; Stop 03/07/18 at 14:16; Status Cancel Morphine Sulfate (Morphine Sulfate) 4 mg 1X ONCE IV Last administered on at 14:35; Start 03/07/18 at 14:30; Stop 03/07/18 at 14:31; Status DC Ondansetron HCl (Zofran) 4 mg PRN Q8HRS PRN IV NAUSEA/VOMITING; Start 03/07/18 at 14:30; Stop 03/08/18 at 14:29; Status DC Morphine Sulfate (Morphine Sulfate) 4 mg PRN Q2HR PRN IV PAIN Last administered on 03/08/18at 08:20; Start 03/07/18 at 14:30; Stop 03/08/18 at 14:29; Status DC Piperacillin Sod/ Tazobactam Sod 3.375 gm/Sodium Chloride 50 ml @ 100 mls/hr Q6HRS IV Last administered on 03/09/18at 00:05; Start 03/07/18 at 18:00 Metronidazole 100 ml @ 100 mls/hr Q8HRS IV Last administered on 03/09/18at 11:19 ; Start 03/07/18 at 22:00 Sodium Chloride 500 ml @ 500 mls/hr 1X ONCE IV Last administered on 03/07/18at 16:45; Start 03/07/18 at 16:45; Stop 03/07/18 at 17:44; Status DC Amino Acids/ Glycerin/ Electrolytes 1,000 ml @ 80 mls/hr [id number] IV Last administered on 03/08/18at 18:18; Start 03/07/18 at 16:45 Acetaminophen (Tylenol) 650 mg PRN Q6HRS PRN PO fever ; Start 03/07/18 at 18:00 Pantoprazole Sodium (PROTONIX VIAL for IV PUSH) 40 mg DAILYAC IVP Last administered on 03/08/18at 08:19; Start 03/08/18 at 07:45 Morphine Sulfate (Morphine Sulfate) 4 mg PRN Q2HR PRN IV MODRATE PAIN Last administered on 03/09/18at 04:26; Start 03/08/18 at 14:45 Lorazepam (Ativan) 1 mg PRN Q4HRS PRN IV ANXIETY / AGITATION Last administered on 03/08/18at 21:41; Start 03/08/18 at 20:30 Ondansetron HCl (Zofran) 4 mg PRN Q6HRS PRN IV NAUSEA/VOMITING 1ST CHOICE Last administered on 03/09/18at 02:07; Start 03/09/18 at 02:00 Etomidate (Amidate) 20 mg STK-MED ONCE IV ; Start 03/09/18 at 06:55; Stop at 06:56; Status DC Norepinephrine Bitartrate 250 ml @ As Directed STK-MED ONCE IV ; Start 03/09/18 at 06:55; Stop 03/09/18 at 06:56; Status DC Midazolam HCl (Versed) 5 mg STK-MED ONCE .ROUTE ; Start 03/09/18 at 06:55; Stop 03/09/18 at 06:56; Status DC Fentanyl Citrate (Fentanyl 2ml Vial) 100 mcg STK-MED ONCE .ROUTE ; Start at 06:55; Stop 03/09/18 at 06:56; Status DC Succinylcholine Chloride (Anectine) 200 mg STK-MED ONCE .ROUTE ; Start 03/09/18 at 06:56; Stop 03/09/18 at 06:57; Status DC Fentanyl Citrate 30 ml @ 0 mls/hr CONT PRN IV PER PROTOCOL Last administered on 03/09/18at 09:47; Start 03/09/18 at 07:00 Fentanyl Citrate (Fentanyl 2ml Vial) 25 mcg PRN Q1HR PRN IV MILD PAIN; Start at 07:00 Fentanyl Citrate (Fentanyl 2ml Vial) 50 mcg PRN Q1HR PRN IV MOD TO SEVERE PAIN ; Start 03/09/18 at 07:00 Chlorhexidine Gluconate (Peridex) 15 ml BID MM ; Start 03/09/18 at 09:00 Midazolam HCl (Versed) 2 mg PRN Q30MIN PRN IV SEDATION; Start 03/09/18 at 07:00 Midazolam HCl 100 ml @ 0 mls/hr CONT PRN IV PER PROTOCOL Last administered on at 09:34; Start 03/09/18 at 07:00 Enoxaparin Sodium (Lovenox 40mg Syringe) 40 mg Q12H SQ Last administered on 03/09at 11:24; Start 03/09/18 at 09:00 Sodium Chloride 1,000 ml @ 125 mls/hr Q8H IV ; Start 03/09/18 at 10:15 Sodium Chloride 1,000 ml @ 1,000 mls/hr 1X ONCE IV ; Start 03/09/18 at 10:15; Stop 03/09/18 at 11:14; Status DC Norepinephrine Bitartrate 250 ml @ As Directed STK-MED ONCE IV ; Start 03/09/18 at 10:37; Stop 03/09/18 at 10:38; Status DC Phenylephrine HCl 20 mg/Sodium Chloride 252 ml @ 22.68 mls/ hr 1X ONCE IV ; Start 03/09/18 at 10:45; Stop 03/09/18 at 21:51 Iohexol (Omnipaque 300 Mg/ml) 75 ml 1X ONCE IV ; Start 03/09/18 at 11:30; Stop 03/09/18 at 11:35; Status DC Allergies Allergies: Coded Allergies: ciprofloxacin (Verified Allergy, Intermediate, RASH, 03/07/18) ROS Review of System Cannot be obtained since patient is intubated Physical Exam General: Other (intubated and sedated) HEENT: Atraumatic Lungs: Clear to auscultation Heart: Regular rate Abdomen: Soft Extremities: No edema Vitals VITALS Vital Signs Date Time Temp Pulse Resp B/P (MAP) Pulse Ox O2 Delivery O2 Flow Rate FiO2 03/09/18 11:48 94 Ventilator 03/09/18 09:47 23 03/09/18 05:00 2.0 03/09/18 03:00 130 114/54 (74) 03/08/18 19:00 99.8 99.8 Labs Labs Laboratory Tests Test 03/07/18 16:40 03/08/18 05:20 03/09/18 08:10 03/09/18 08:44 Lactic Acid Level 1.3 mmol/L (0.4-2.0) White Blood Count 14.8 x10^3/uL (4.0-11.0) Red Blood Count 4.52 x10^6/uL (4.30-5.70) Hemoglobin 13.5 g/dL (13.0-17.5) Hematocrit 40.5 % (39.0-53.0) Mean Corpuscular Volume 90 fL (79-100) Mean Corpuscular Hemoglobin 30 pg (25-35) Mean Corpuscular Hemoglobin Concent 33 g/dL (31-37) Red Cell Distribution Width 13.5 % (11.5-14.5) Platelet Count 213 x10^3/uL (140-400) Neutrophils (%) (Auto) 80 % (31-73) Lymphocytes (%) (Auto) 12 % (24-48) Monocytes (%) (Auto) 7 % (0-9) Eosinophils (%) (Auto) 1 % (0-3) Basophils (%) (Auto) 0 % (0-3) Neutrophils # (Auto) 11.8 x10^3uL (1.8-7.7) Lymphocytes # (Auto) 1.8 x10^3/uL (1.0-4.8) Monocytes # (Auto) 1.0 x10^3/uL (0.0-1.1) Eosinophils # (Auto) 0.1 x10^3/uL (0.0-0.7) Basophils # (Auto) 0.1 x10^3/uL (0.0-0.2) O2 Saturation 90 % (92-99) Arterial Blood pH 7.29 (7.35-7.45) Arterial Blood pCO2 at Patient Temp 44 mmHg (35-46) Arterial Blood pO2 at Patient Temp 66 mmHg (85-108) Arterial Blood HCO3 21 mmol/L (21-28) Arterial Blood Base Excess -6 mmol/L (-3-3) Oxyhemoglobin 89.6 % Methemoglobin 0.2 % (0.0-1.9) Carbon Monoxide, Quantitative 0.7 % (0.0-1.9) FiO2 100 Glucose (Fingerstick) 222 mg/dL (70-99) Test 03/09/18 08:45 03/09/18 09:20 03/09/18 09:43 Sodium Level 134 mmol/L (136-145) Potassium Level 4.6 mmol/L (3.5-5.1) Chloride Level 99 mmol/L (98-107) Carbon Dioxide Level 22 mmol/L (21-32) Anion Gap 13 (6-14) Blood Urea Nitrogen 20 mg/dL (8-26) Creatinine 1.8 mg/dL (0.7-1.3) Estimated GFR (Cockcroft-Gault) 42.9 BUN/Creatinine Ratio 11 (6-20) Glucose Level 239 mg/dL (70-99) Calcium Level 8.6 mg/dL (8.5-10.1) Magnesium Level 2.0 mg/dL (1.8-2.4) Total Bilirubin 0.8 mg/dL (0.2-1.0) Aspartate Amino Transf (AST/SGOT) 61 U/L (15-37) Alanine Aminotransferase (ALT/SGPT) 90 U/L (16-63) Alkaline Phosphatase 94 U/L (46-116) Creatine Kinase 40 U/L (39-308) Creatine Kinase MB (Mass) < 0.5 ng/mL (0.0-3.6) Creatine Kinase MB Relative Index < 0.5 % (0-4) Troponin I Quantitative 0.077 ng/mL (0.000-0.055) Total Protein 7.6 g/dL (6.4-8.2) Albumin 2.5 g/dL (3.4-5.0) Albumin/Globulin Ratio 0.5 (1.0-1.7) White Blood Count 19.1 x10^3/uL (4.0-11.0) Red Blood Count 4.59 x10^6/uL (4.30-5.70) Hemoglobin 13.9 g/dL (13.0-17.5) Hematocrit 41.3 % (39.0-53.0) Mean Corpuscular Volume 90 fL (79-100) Mean Corpuscular Hemoglobin 30 pg (25-35) Mean Corpuscular Hemoglobin Concent 34 g/dL (31-37) Red Cell Distribution Width 13.5 % (11.5-14.5) Platelet Count 282 x10^3/uL (140-400) Neutrophils (%) (Auto) 84 % (31-73) Lymphocytes (%) (Auto) 7 % (24-48) Monocytes (%) (Auto) 9 % (0-9) Eosinophils (%) (Auto) 0 % (0-3) Basophils (%) (Auto) 0 % (0-3) Neutrophils # (Auto) 16.1 x10^3uL (1.8-7.7) Lymphocytes # (Auto) 1.3 x10^3/uL (1.0-4.8) Monocytes # (Auto) 1.7 x10^3/uL (0.0-1.1) Eosinophils # (Auto) 0.0 x10^3/uL (0.0-0.7) Basophils # (Auto) 0.1 x10^3/uL (0.0-0.2) Segmented Neutrophils % 78 % (35-66) Band Neutrophils % 8 % (0-9) Lymphocytes % 7 % (24-48) Monocytes % 6 % (0-10) Myelocytes % 1 % (0-0) Platelet Estimate Adequate (ADEQUATE) Large Platelets Occ Prothrombin Time 14.8 SEC (11.7-14.0) Prothromb Time International Ratio 1.2 (0.8-1.1) Urine Opiates Screen Pos (NEG) Urine Methadone Screen Neg (NEG) Urine Barbiturates Neg (NEG) Urine Phencyclidine Screen Neg (NEG) Urine Amphetamine/Methamphetamine Neg (NEG) Urine Benzodiazepines Screen Pos (NEG) Urine Cocaine Screen Pos (NEG) Urine Cannabinoids Screen Pos (NEG) Urine Ethyl Alcohol Neg (NEG) Laboratory Tests Test 8/4/18 08:10 03/09/18 08:44 03/09/18 08:45 03/09/18 09:20 O2 Saturation 90 % (92-99) Arterial Blood pH 7.29 (7.35-7.45) Arterial Blood pCO2 at Patient Temp 44 mmHg (35-46) Arterial Blood pO2 at Patient Temp 66 mmHg (85-108) Arterial Blood HCO3 21 mmol/L (21-28) Arterial Blood Base Excess -6 mmol/L (-3-3) Oxyhemoglobin 89.6 % Methemoglobin 0.2 % (0.0-1.9) Carbon Monoxide, Quantitative 0.7 % (0.0-1.9) FiO2 100 Glucose (Fingerstick) 222 mg/dL (70-99) Sodium Level 134 mmol/L (136-145) Potassium Level 4.6 mmol/L (3.5-5.1) Chloride Level 99 mmol/L (98-107) Carbon Dioxide Level 22 mmol/L (21-32) Anion Gap 13 (6-14) Blood Urea Nitrogen 20 mg/dL (8-26) Creatinine 1.8 mg/dL (0.7-1.3) Estimated GFR (Cockcroft-Gault) 42.9 BUN/Creatinine Ratio 11 (6-20) Glucose Level 239 mg/dL (70-99) Calcium Level 8.6 mg/dL (8.5-10.1) Magnesium Level 2.0 mg/dL (1.8-2.4) Total Bilirubin 0.8 mg/dL (0.2-1.0) Aspartate Amino Transf (AST/SGOT) 61 U/L (15-37) Alanine Aminotransferase (ALT/SGPT) 90 U/L (16-63) Alkaline Phosphatase 94 U/L (46-116) Creatine Kinase 40 U/L (39-308) Creatine Kinase MB (Mass) < 0.5 ng/mL (0.0-3.6) Creatine Kinase MB Relative Index < 0.5 % (0-4) Troponin I Quantitative 0.077 ng/mL (0.000-0.055) Total Protein 7.6 g/dL (6.4-8.2) Albumin 2.5 g/dL (3.4-5.0) Albumin/Globulin Ratio 0.5 (1.0-1.7) White Blood Count 19.1 x10^3/uL (4.0-11.0) Red Blood Count 4.59 x10^6/uL (4.30-5.70) Hemoglobin 13.9 g/dL (13.0-17.5) Hematocrit 41.3 % (39.0-53.0) Mean Corpuscular Volume 90 fL (79-100) Mean Corpuscular Hemoglobin 30 pg (25-35) Mean Corpuscular Hemoglobin Concent 34 g/dL (31-37) Red Cell Distribution Width 13.5 % (11.5-14.5) Platelet Count 282 x10^3/uL (140-400) Neutrophils (%) (Auto) 84 % (31-73) Lymphocytes (%) (Auto) 7 % (24-48) Monocytes (%) (Auto) 9 % (0-9) Eosinophils (%) (Auto) 0 % (0-3) Basophils (%) (Auto) 0 % (0-3) Neutrophils # (Auto) 16.1 x10^3uL (1.8-7.7) Lymphocytes # (Auto) 1.3 x10^3/uL (1.0-4.8) Monocytes # (Auto) 1.7 x10^3/uL (0.0-1.1) Eosinophils # (Auto) 0.0 x10^3/uL (0.0-0.7) Basophils # (Auto) 0.1 x10^3/uL (0.0-0.2) Segmented Neutrophils % 78 % (35-66) Band Neutrophils % 8 % (0-9) Lymphocytes % 7 % (24-48) Monocytes % 6 % (0-10) Myelocytes % 1 % (0-0) Platelet Estimate Adequate (ADEQUATE) Large Platelets Occ Prothrombin Time 14.8 SEC (11.7-14.0) Prothromb Time International Ratio 1.2 (0.8-1.1) Test 03/09/18 09:43 Urine Opiates Screen Pos (NEG) Urine Methadone Screen Neg (NEG) Urine Barbiturates Neg (NEG) Urine Phencyclidine Screen Neg (NEG) Urine Amphetamine/Methamphetamine Neg (NEG) Urine Benzodiazepines Screen Pos (NEG) Urine Cocaine Screen Pos (NEG) Urine Cannabinoids Screen Pos (NEG) Urine Ethyl Alcohol Neg (NEG) Assessment/Plan Assessment/Plan 1. s/p cardiopulmonary arrest. Patient is presently intubated for acute respiratory failure. Continue vent management per pulmonary team. Possible etiologies include pulmonary embolism and vagal reaction - I cannot find any rhythm strips proving VT. Telemetry did not show any arrhythmias thus far. CT chest pending. Check 2-D echo to assess LV systolic function. Ischemic workup could be considered once patient is extubated. 2. Hypotension, sepsis: Continue pressors 3. Sigmoid diverticulitis with perforation: General surgery team following. Continue intravenous antibiotics. Thank you for your consultation. SARAH AVILA MD Mar 09, 2018 12:18
[2018-03-09 13:10] LABS: BASE EXCESS ABG -5 mmol/L (-3-3); HCO3 ABG 21 mmol/L (21-28); PCO2 ABG 40 mmHg (35-46); PO2 ABG 83 mmHg (85-108); SAT O2 ABG 96 % (92-99)
[2018-03-09 13:13] LABS: FIO2 ABG 90
[2018-03-09] MEDS: PANTOPRAZOLE IV PUSH 40 MG VIAL. IVP SCH (13:20)
--- NOTE | 2018-03-09 14:20 | PDOC4 ---
PROCEDURE Procedure PROCEDURE NOTE Procedure: Insertion of triple-lumen central line and arterial line. This patient was in ICU and taken to the CAT scan room where he proceeded to deteriorate, he is intubated and had no IV access. An emergency I/O was inserted into the right pretibial area but the patient is now back from the CAT scan to the intensive care unit. The patient needed IV access as well as an arterial line for monitoring purposes. I was asked to see the patient for insertion of the lines. An informed consent was obtained from the family. This was done in the ICU at the bedside. The right groin area was prepped and draped in the usual fashion. Anatomy was identified by inspection and palpation. Using Seldinger technique a triple-lumen central line catheter was inserted into the right femoral vein. Then an arterial line was inserted into the right femoral artery. Both lines were sutured in place a dressing was applied to the groin. The patient tolerated the procedure rather well. ASHLEY HENDERSON MD Mar 09, 2018 14:20
[2018-03-09] MEDS: AMINO AC 3%/ELECTROLYTE/GLYCER 1,000 ML IV SCH (14:26)
--- NOTE | 2018-03-09 14:26 | PDOC ---
Infectious Disease Note Vital Sign Vital Signs Vital Signs Date Time Temp Pulse Resp B/P (MAP) Pulse Ox O2 Delivery O2 Flow Rate FiO2 03/09/18 11:48 94 Ventilator 03/09/18 09:47 23 03/09/18 05:00 2.0 03/09/18 03:00 130 114/54 (74) 03/08/18 19:00 99.8 99.8 Labs Lab Laboratory Tests Test 03/09/18 08:10 03/09/18 08:44 03/09/18 08:45 03/09/18 09:20 O2 Saturation 90 % (92-99) Arterial Blood pH 7.29 (7.35-7.45) Arterial Blood pCO2 at Patient Temp 44 mmHg (35-46) Arterial Blood pO2 at Patient Temp 66 mmHg (85-108) Arterial Blood HCO3 21 mmol/L (21-28) Arterial Blood Base Excess -6 mmol/L (-3-3) Oxyhemoglobin 89.6 % Methemoglobin 0.2 % (0.0-1.9) Carbon Monoxide, Quantitative 0.7 % (0.0-1.9) FiO2 100 Glucose (Fingerstick) 222 mg/dL (70-99) Sodium Level 134 mmol/L (136-145) Potassium Level 4.6 mmol/L (3.5-5.1) Chloride Level 99 mmol/L (98-107) Carbon Dioxide Level 22 mmol/L (21-32) Anion Gap 13 (6-14) Blood Urea Nitrogen 20 mg/dL (8-26) Creatinine 1.8 mg/dL (0.7-1.3) Estimated GFR (Cockcroft-Gault) 42.9 BUN/Creatinine Ratio 11 (6-20) Glucose Level 239 mg/dL (70-99) Calcium Level 8.6 mg/dL (8.5-10.1) Magnesium Level 2.0 mg/dL (1.8-2.4) Total Bilirubin 0.8 mg/dL (0.2-1.0) Aspartate Amino Transf (AST/SGOT) 61 U/L (15-37) Alanine Aminotransferase (ALT/SGPT) 90 U/L (16-63) Alkaline Phosphatase 94 U/L (46-116) Creatine Kinase 40 U/L (39-308) Creatine Kinase MB (Mass) < 0.5 ng/mL (0.0-3.6) Creatine Kinase MB Relative Index < 0.5 % (0-4) Troponin I Quantitative 0.077 ng/mL (0.000-0.055) Total Protein 7.6 g/dL (6.4-8.2) Albumin 2.5 g/dL (3.4-5.0) Albumin/Globulin Ratio 0.5 (1.0-1.7) White Blood Count 19.1 x10^3/uL (4.0-11.0) Red Blood Count 4.59 x10^6/uL (4.30-5.70) Hemoglobin 13.9 g/dL (13.0-17.5) Hematocrit 41.3 % (39.0-53.0) Mean Corpuscular Volume 90 fL (79-100) Mean Corpuscular Hemoglobin 30 pg (25-35) Mean Corpuscular Hemoglobin Concent 34 g/dL (31-37) Red Cell Distribution Width 13.5 % (11.5-14.5) Platelet Count 282 x10^3/uL (140-400) Neutrophils (%) (Auto) 84 % (31-73) Lymphocytes (%) (Auto) 7 % (24-48) Monocytes (%) (Auto) 9 % (0-9) Eosinophils (%) (Auto) 0 % (0-3) Basophils (%) (Auto) 0 % (0-3) Neutrophils # (Auto) 16.1 x10^3uL (1.8-7.7) Lymphocytes # (Auto) 1.3 x10^3/uL (1.0-4.8) Monocytes # (Auto) 1.7 x10^3/uL (0.0-1.1) Eosinophils # (Auto) 0.0 x10^3/uL (0.0-0.7) Basophils # (Auto) 0.1 x10^3/uL (0.0-0.2) Segmented Neutrophils % 78 % (35-66) Band Neutrophils % 8 % (0-9) Lymphocytes % 7 % (24-48) Monocytes % 6 % (0-10) Myelocytes % 1 % (0-0) Platelet Estimate Adequate (ADEQUATE) Large Platelets Occ Prothrombin Time 14.8 SEC (11.7-14.0) Prothromb Time International Ratio 1.2 (0.8-1.1) Test 03/09/18 09:43 03/09/18 13:05 Urine Opiates Screen Pos (NEG) Urine Methadone Screen Neg (NEG) Urine Barbiturates Neg (NEG) Urine Phencyclidine Screen Neg (NEG) Urine Amphetamine/Methamphetamine Neg (NEG) Urine Benzodiazepines Screen Pos (NEG) Urine Cocaine Screen Pos (NEG) Urine Cannabinoids Screen Pos (NEG) Urine Ethyl Alcohol Neg (NEG) O2 Saturation 96 % (92-99) Arterial Blood pH 7.34 (7.35-7.45) Arterial Blood pCO2 at Patient Temp 40 mmHg (35-46) Arterial Blood pO2 at Patient Temp 83 mmHg (85-108) Arterial Blood HCO3 21 mmol/L (21-28) Arterial Blood Base Excess -5 mmol/L (-3-3) FiO2 90 Micro Microbiology 03/07/18 Blood Culture - Preliminary, Resulted NO GROWTH AFTER 1 DAY Objective Assessment s/p code blue, 03/09 Sepsis w/ hypotension requiring vasopressor support. Levophed 30 mcg - BC from 03/07 NGTD Leukocytosis Acute diverticulitis with microperforation -gen surgery following, on bowel rest Allergy Cipro - rash RONNY Acute respiratory failure Substance abuse. urine tox + cocaine and marijuana 03/07 & 03/09 PUD / GERD Etoh dependence Morbid obesity, BMI 41 Hypertension Recently hosp [facility] & EGD- ulcers Rx on omeprazole per Plan Plan of Care Continue Zosyn Add Micafungin and Zyvox DC Flagyl Repeat BC Monitor labs/VSS Repeat CT abd/pelvis when stable per gen surgery Gen surgery following D/w family D/w RN Thank you Patient seen, examined, Records reviewed Gen surgery following Cardiology on case I agree with above. Assessment and plan was formulated with [employer]. D/W Mother at bedside ARCHANA PARRISH APRN Mar 09, 2018 14:26 CONOR ESTRELLA MD Mar 09, 2018 15:13
[2018-03-09] MEDS ORDERED: NOREPINEPHRIN 8MG/250ML PREMIX 250 ML IV PRN (16:00)
[2018-03-09] MEDS: MICAFUNGIN 100 MG in IV DEXTROSE 5% 100ML 100 ML IV SCH (16:22)
--- NOTE | 2018-03-09 19:40 | CONS ---
DATE OF CONSULTATION: 03/09/2018 ATTENDING PHYSICIAN: Dr. Powell. REASON FOR CONSULTATION: The patient seen in pulmonary consultation at the request of Dr. Powell for acute respiratory failure, status post code blue. The patient presented with diverticulitis. HISTORY OF PRESENT ILLNESS: The patient is a 37-year-old morbid obese individual with a history of tobacco use. I spoke with his at the bedside. The patient quit tobacco approximately 2 months ago secondary to severe reflux and dysphagia. He had an EGD, which revealed severe erosive esophagitis. He has no prior history of asthma. He experiences approximately one acute exacerbation of COPD per year. No prior history of DVT or pulmonary embolism. He does have clinical symptoms and signs of obstructive sleep apnea, was scheduled to undergo a sleep study some time last fall, but did not undergo the study secondary to acute bronchitis. The patient is basically a 37-year-old who presented with abdominal pain, was seen by Dr. Morse after a CT chest revealed sigmoid diverticulitis with microperforation. The patient was actually doing quite well and there were contemplating on possibly discharge home in the next 24-48 hours. This morning, the patient was found on the floor. Chest compressions were initiated. The Emergency Room physician ran the code blue. The patient had a spontaneous return of circulation after defibrillation, one defibrillation and 2 minutes of chest compressions. He had nonsustained ventricular tachycardia. Initially, I believe the pulse was in the 50s. His blood pressure has been low. He is on pressors. The patient was intubated. He is currently in the Intensive Care Unit. He was due to undergo repeat CT chest. I ordered a CT for PE protocol. Unfortunately, he was more hypotensive in the CAT suite and was returned back to the Intensive Care Unit. No scans have been done up until now except for the initial scan. According to the nurse and the family, actually the patient is currently following commands. He is now sedated, but when he is lightly sedated, he follows commands and opens up his eyes. PAST MEDICAL HISTORY: 1. Severe erosive esophagitis and gastroesophageal reflux. 2. Tobacco dependence, quit 2 months ago to improve his severe esophageal erosive gastritis. 3. Morbid obesity. 4. Clinical symptoms and signs of obstructive sleep apnea, polysomnogram was scheduled as an outpatient. 5. No history of DVT or pulmonary embolism. 6. COPD with acute exacerbations of COPD approximately once per year. MEDICATIONS: Current medication list was reviewed. Home medication list was reviewed. ALLERGIES: CIPROFLOXACIN. PHYSICAL EXAMINATION: VITAL SIGNS: Noted. T-max 48 hours ago was 101.4, yesterday it was 99.7. He is on pressors. Mean arterial pressure is currently about 60. NECK: Jugular venous distention could not be assessed secondary to body habitus. CHEST: Full expansion. LUNGS: Adequate airway flow with no wheezes. CARDIOVASCULAR: Regular rate and rhythm with S1, S2, no S3. ABDOMEN: Obese and soft. No rebound. EXTREMITIES: No clubbing, cyanosis. Minimal edema. NEUROLOGIC: The patient was sedated. LABORATORY DATA: Reviewed. White count was elevated. Hemoglobin and hematocrit were noted. Arterial blood gas on mechanical ventilation, not too long after chest compressions and a code blue, pH of 7.29, paCO2 of 44, paO2 of 66. INR was 1.2. Electrolytes were noted. BUN and creatinine were noted. Creatinine was elevated; upon admission, his creatinine was normal. IMPRESSION: 1. Acute respiratory failure, status post code blue. 2. Status post code blue patient with spontaneous return of circulation after one defibrillation and 2 minutes of chest compressions. 3. Septic shock. 4. Diverticulitis leading to septic shock. 5. Metabolic acidosis secondary to code blue, increased work of breathing and renal insufficiency. 6. Morbid obesity. 7. Leukocytosis. 8. Obstructive sleep apnea. 9. Possible aspiration pneumonia. PLAN: 1. We will continue current support with mechanical ventilation on current settings. 2. CT angiogram for PE protocol when patient's clinical status is stable enough to be transported to CT scanner. 3. Follow surgery input. 4. Consult ID, the patient is currently on 2 antibiotics. 5. Consult cardiology, already performed. 6. DVT and GI prophylaxis. I do appreciate the privilege in sharing in this patient's care. Total cumulative critical care time of 55 minutes, the above was discussed with multiple family members including his at the bedside. SUZY MARQUEZ MD DR: RAQUEL/arnold JOB#: [id number] / [id number]
[2018-03-10] VITALS (24 sets, daily range): BP systolic 100–152; BP diastolic 20–82
[2018-03-10] MEDS: CHLORHEXIDINE 0.12% 15 ML MOUTHWASH. MM SCH ×3 (01:06→20:59)
[2018-03-10] MEDS: PIPERACILLIN/TAZOBACTAM 3.375 GM in IV NORMAL SALINE 50ML 50 ML IV SCH ×5 (01:06→23:43)
[2018-03-10] MEDS: IV NORMAL SALINE 1000ML BAG 1,000 ML IV SCH ×4 (01:07→18:27)
[2018-03-10] MEDS: AMINO AC 3%/ELECTROLYTE/GLYCER 1,000 ML IV SCH ×2 (01:57→09:25)
[2018-03-10 04:43] LABS: BASO % 1 % (0-3); EOS % 0 % (0-3); HEMATOCRIT 34.3 % (39.0-53.0); HEMOGLOBIN 11.6 g/dL (13.0-17.5); LYMPH # 1.3 x10^3/uL (1.0-4.8); LYMPH % 13 % (24-48); MEAN CORPUSCULAR HEMOGLOBIN 30 pg (25-35); MEAN CORPUSCULAR HGB CONC 34 g/dL (31-37); MEAN CORPUSCULAR VOLUME 90 fL (79-100); MONO # 0.8 x10^3/uL (0.0-1.1); MONO % 8 % (0-9); NEUT # 8.1 x10^3uL (1.8-7.7); NEUT % 79 % (31-73); PLATELET COUNT 231 x10^3/uL (140-400); RED BLOOD COUNT 3.81 x10^6/uL (4.30-5.70); RED CELL DISTRIBUTION WIDTH 13.3 % (11.5-14.5); WHITE BLOOD COUNT 10.3 x10^3/uL (4.0-11.0)
[2018-03-10 05:17] LABS: ALBUMIN 1.9 g/dL (3.4-5.0); ALBUMIN/GLOBULIN RATIO 0.4 (1.0-1.7); CALCIUM 8.4 mg/dL (8.5-10.1); CREATININE 1.3 mg/dL (0.7-1.3); GFR 62.5; POTASSIUM 3.8 mmol/L (3.5-5.1); TOTAL BILIRUBIN 0.5 mg/dL (0.2-1.0); TOTAL PROTEIN 6.3 g/dL (6.4-8.2)
--- NOTE | 2018-03-10 07:47 | RAD ---
Examination: Single frontal view of the chest HISTORY: History of respiratory failure COMPARISON: 03/09/2018 FINDINGS: The ET tube is identified in the trachea at the level of the clavicles. The feeding tube is seen below the level of the diaphragm likely within the stomach. Low lung volumes and technique accentuates heart size and pulmonary vascularity. Faint airspace opacities identified in the bilateral perihilar region. Bibasilar lung airspace opacities IMPRESSION: 1. Bibasilar lung airspace opacities likely atelectasis or infiltrates. 2. Mild congestive changes. 2. ET tube, feeding tube unchanged. Electronically signed by: Wilber German MD (03/10/2018 7:44 AM) [facility]
[2018-03-10] MEDS ORDERED: FUROSEMIDE 40 MG/4 ML VIAL. IVP ONE (09:00)
--- NOTE | 2018-03-10 09:21 | PDOC ---
Infectious Disease Note Subjective Subjective Remains intubated, FiO2 80% from 90% Sedated BP stable, off vasopressor support No fevers ROS ROS unobtainable Vital Sign Vital Signs Vital Signs Date Time Temp Pulse Resp B/P (MAP) Pulse Ox O2 Delivery O2 Flow Rate FiO2 03/10/18 08:17 88 Ventilator 03/10/18 08:00 92 03/10/18 07:00 21 03/10/18 04:00 99.0 99.0 03/10/18 01:56 2.0 Physical Exam PHYSICAL EXAM GENERAL: Intubated and sedated, mitt left hand HENT: Pupils equal. OGT & ETT NECK: C-collar in place LUNGS: Mechanical breath sounds CV: Distant heart tones ABDOMEN:n Obese, hypoactive bowel sounds, soft, no grimace to palpation : Galvan in place EXT: No gross edema or cyanosis SKIN: warm without rash Right femoral line - clean Labs Lab Laboratory Tests Test 03/09/18 09:20 03/09/18 09:43 03/09/18 11:00 03/09/18 13:05 White Blood Count 19.1 x10^3/uL (4.0-11.0) Red Blood Count 4.59 x10^6/uL (4.30-5.70) Hemoglobin 13.9 g/dL (13.0-17.5) Hematocrit 41.3 % (39.0-53.0) Mean Corpuscular Volume 90 fL (79-100) Mean Corpuscular Hemoglobin 30 pg (25-35) Mean Corpuscular Hemoglobin Concent 34 g/dL (31-37) Red Cell Distribution Width 13.5 % (11.5-14.5) Platelet Count 282 x10^3/uL (140-400) Neutrophils (%) (Auto) 84 % (31-73) Lymphocytes (%) (Auto) 7 % (24-48) Monocytes (%) (Auto) 9 % (0-9) Eosinophils (%) (Auto) 0 % (0-3) Basophils (%) (Auto) 0 % (0-3) Neutrophils # (Auto) 16.1 x10^3uL (1.8-7.7) Lymphocytes # (Auto) 1.3 x10^3/uL (1.0-4.8) Monocytes # (Auto) 1.7 x10^3/uL (0.0-1.1) Eosinophils # (Auto) 0.0 x10^3/uL (0.0-0.7) Basophils # (Auto) 0.1 x10^3/uL (0.0-0.2) Segmented Neutrophils % 78 % (35-66) Band Neutrophils % 8 % (0-9) Lymphocytes % 7 % (24-48) Monocytes % 6 % (0-10) Myelocytes % 1 % (0-0) Platelet Estimate Adequate (ADEQUATE) Large Platelets Occ Prothrombin Time 14.8 SEC (11.7-14.0) Prothromb Time International Ratio 1.2 (0.8-1.1) Urine Opiates Screen Pos (NEG) Urine Methadone Screen Neg (NEG) Urine Barbiturates Neg (NEG) Urine Phencyclidine Screen Neg (NEG) Urine Amphetamine/Methamphetamine Neg (NEG) Urine Benzodiazepines Screen Pos (NEG) Urine Cocaine Screen Pos (NEG) Urine Cannabinoids Screen Pos (NEG) Urine Ethyl Alcohol Neg (NEG) Nasal Screen MRSA (PCR) Negative (Negative) O2 Saturation 96 % (92-99) Arterial Blood pH 7.34 (7.35-7.45) Arterial Blood pCO2 at Patient Temp 40 mmHg (35-46) Arterial Blood pO2 at Patient Temp 83 mmHg (85-108) Arterial Blood HCO3 21 mmol/L (21-28) Arterial Blood Base Excess -5 mmol/L (-3-3) FiO2 90 Test 03/10/18 04:20 White Blood Count 10.3 x10^3/uL (4.0-11.0) Red Blood Count 3.81 x10^6/uL (4.30-5.70) Hemoglobin 11.6 g/dL (13.0-17.5) Hematocrit 34.3 % (39.0-53.0) Mean Corpuscular Volume 90 fL (79-100) Mean Corpuscular Hemoglobin 30 pg (25-35) Mean Corpuscular Hemoglobin Concent 34 g/dL (31-37) Red Cell Distribution Width 13.3 % (11.5-14.5) Platelet Count 231 x10^3/uL (140-400) Neutrophils (%) (Auto) 79 % (31-73) Lymphocytes (%) (Auto) 13 % (24-48) Monocytes (%) (Auto) 8 % (0-9) Eosinophils (%) (Auto) 0 % (0-3) Basophils (%) (Auto) 1 % (0-3) Neutrophils # (Auto) 8.1 x10^3uL (1.8-7.7) Lymphocytes # (Auto) 1.3 x10^3/uL (1.0-4.8) Monocytes # (Auto) 0.8 x10^3/uL (0.0-1.1) Eosinophils # (Auto) 0.0 x10^3/uL (0.0-0.7) Basophils # (Auto) 0.0 x10^3/uL (0.0-0.2) Sodium Level 141 mmol/L (136-145) Potassium Level 3.8 mmol/L (3.5-5.1) Chloride Level 108 mmol/L (98-107) Carbon Dioxide Level 26 mmol/L (21-32) Anion Gap 7 (6-14) Blood Urea Nitrogen 19 mg/dL (8-26) Creatinine 1.3 mg/dL (0.7-1.3) Estimated GFR (Cockcroft-Gault) 62.5 BUN/Creatinine Ratio 15 (6-20) Glucose Level 139 mg/dL (70-99) Calcium Level 8.4 mg/dL (8.5-10.1) Total Bilirubin 0.5 mg/dL (0.2-1.0) Aspartate Amino Transf (AST/SGOT) 39 U/L (15-37) Alanine Aminotransferase (ALT/SGPT) 64 U/L (16-63) Alkaline Phosphatase 57 U/L (46-116) Total Protein 6.3 g/dL (6.4-8.2) Albumin 1.9 g/dL (3.4-5.0) Albumin/Globulin Ratio 0.4 (1.0-1.7) CXR IMPRESSION: 1. Bibasilar lung airspace opacities likely atelectasis or infiltrates. 2. Mild congestive changes. 2. ET tube, feeding tube unchanged. Micro Microbiology 03/07/18 Blood Culture - Preliminary, Resulted NO GROWTH AFTER 2 DAY 03/09 BC pending Objective Assessment s/p code blue, 03/09 Sepsis w/ hypotension requiring vasopressor support. Levophed 30 mcg - BC from 8/2 NGTD Leukocytosis Acute diverticulitis with microperforation -gen surgery following, on bowel rest Allergy Cipro - rash RONNY Acute respiratory failure Substance abuse. urine tox + cocaine and marijuana 03/07 & 03/09 PUD / GERD Etoh dependence Morbid obesity, BMI 41 Hypertension Recently hosp [facility] & EGD- ulcers Rx on omeprazole per Plan Plan of Care Continue Zyvox, Zosyn and micafungin Repeat BC from 03/09 pending Monitor labs/VSS Repeat CT abd/pelvis when stable per gen surgery D/w family D/w RN Patient seen, examined, I agree with above. Assessment and plan was formulated with [employer]TR[employer]OUND TECHNOLOGIST. ARCHANA PARRISH APRN Mar 10, 2018 09:21 CONOR ESTRELLA MD Mar 10, 2018 14:34
[2018-03-10] MEDS: MIDAZOLAM 100mg/100ml NS BAG 100 ML IV PRN ×2 (09:22→14:59)
[2018-03-10] MEDS: PANTOPRAZOLE IV PUSH 40 MG VIAL. IVP SCH (09:27)
[2018-03-10] MEDS: ENOXAPARIN 40 MG/0.4 ML SYRINGE. SQ SCH (09:31)
[2018-03-10 09:53] LABS: BASE EXCESS ABG 1 mmol/L (-3-3); HCO3 ABG 25 mmol/L (21-28); PCO2 ABG 36 mmHg (35-46); PO2 ABG 63 mmHg (85-108); SAT O2 ABG 93 % (92-99)
[2018-03-10 09:56] LABS: FIO2 ABG 80
--- NOTE | 2018-03-10 09:57 | PDOC ---
SURGICAL PROGRESS NOTE Subjective Pt intubated and sedated but does respond to 's voice, on high vent support Vital Signs Vital Signs Date Time Temp Pulse Resp B/P (MAP) Pulse Ox O2 Delivery O2 Flow Rate FiO2 03/10/18 08:17 88 Ventilator 03/10/18 08:00 92 03/10/18 07:00 21 03/10/18 04:00 99.0 99.0 03/10/18 01:56 2.0 I&O Intake and Output 03/10/18 07:00 Intake Total 8365.74 ml Output Total 2030 ml Balance 6335.74 ml Intake Oral 0 ml IV Total 8365.74 ml Output Urine Total 2030 ml General: No acute distress Abdomen: Soft, No tenderness Labs Laboratory Tests Test 03/09/18 08:10 03/09/18 08:44 03/09/18 08:45 03/09/18 09:20 O2 Saturation 90 % (92-99) Arterial Blood pH 7.29 (7.35-7.45) Arterial Blood pCO2 at Patient Temp 44 mmHg (35-46) Arterial Blood pO2 at Patient Temp 66 mmHg (85-108) Arterial Blood HCO3 21 mmol/L (21-28) Arterial Blood Base Excess -6 mmol/L (-3-3) Oxyhemoglobin 89.6 % Methemoglobin 0.2 % (0.0-1.9) Carbon Monoxide, Quantitative 0.7 % (0.0-1.9) FiO2 100 Glucose (Fingerstick) 222 mg/dL (70-99) Sodium Level 134 mmol/L (136-145) Potassium Level 4.6 mmol/L (3.5-5.1) Chloride Level 99 mmol/L (98-107) Carbon Dioxide Level 22 mmol/L (21-32) Anion Gap 13 (6-14) Blood Urea Nitrogen 20 mg/dL (8-26) Creatinine 1.8 mg/dL (0.7-1.3) Estimated GFR (Cockcroft-Gault) 42.9 BUN/Creatinine Ratio 11 (6-20) Glucose Level 239 mg/dL (70-99) Calcium Level 8.6 mg/dL (8.5-10.1) Magnesium Level 2.0 mg/dL (1.8-2.4) Total Bilirubin 0.8 mg/dL (0.2-1.0) Aspartate Amino Transf (AST/SGOT) 61 U/L (15-37) Alanine Aminotransferase (ALT/SGPT) 90 U/L (16-63) Alkaline Phosphatase 94 U/L (46-116) Creatine Kinase 40 U/L (39-308) Creatine Kinase MB (Mass) < 0.5 ng/mL (0.0-3.6) Creatine Kinase MB Relative Index < 0.5 % (0-4) Troponin I Quantitative 0.077 ng/mL (0.000-0.055) Total Protein 7.6 g/dL (6.4-8.2) Albumin 2.5 g/dL (3.4-5.0) Albumin/Globulin Ratio 0.5 (1.0-1.7) White Blood Count 19.1 x10^3/uL (4.0-11.0) Red Blood Count 4.59 x10^6/uL (4.30-5.70) Hemoglobin 13.9 g/dL (13.0-17.5) Hematocrit 41.3 % (39.0-53.0) Mean Corpuscular Volume 90 fL (79-100) Mean Corpuscular Hemoglobin 30 pg (25-35) Mean Corpuscular Hemoglobin Concent 34 g/dL (31-37) Red Cell Distribution Width 13.5 % (11.5-14.5) Platelet Count 282 x10^3/uL (140-400) Neutrophils (%) (Auto) 84 % (31-73) Lymphocytes (%) (Auto) 7 % (24-48) Monocytes (%) (Auto) 9 % (0-9) Eosinophils (%) (Auto) 0 % (0-3) Basophils (%) (Auto) 0 % (0-3) Neutrophils # (Auto) 16.1 x10^3uL (1.8-7.7) Lymphocytes # (Auto) 1.3 x10^3/uL (1.0-4.8) Monocytes # (Auto) 1.7 x10^3/uL (0.0-1.1) Eosinophils # (Auto) 0.0 x10^3/uL (0.0-0.7) Basophils # (Auto) 0.1 x10^3/uL (0.0-0.2) Segmented Neutrophils % 78 % (35-66) Band Neutrophils % 8 % (0-9) Lymphocytes % 7 % (24-48) Monocytes % 6 % (0-10) Myelocytes % 1 % (0-0) Platelet Estimate Adequate (ADEQUATE) Large Platelets Occ Prothrombin Time 14.8 SEC (11.7-14.0) Prothromb Time International Ratio 1.2 (0.8-1.1) Test 03/09/18 09:43 03/09/18 11:00 03/09/18 13:05 03/10/18 04:20 Urine Opiates Screen Pos (NEG) Urine Methadone Screen Neg (NEG) Urine Barbiturates Neg (NEG) Urine Phencyclidine Screen Neg (NEG) Urine Amphetamine/Methamphetamine Neg (NEG) Urine Benzodiazepines Screen Pos (NEG) Urine Cocaine Screen Pos (NEG) Urine Cannabinoids Screen Pos (NEG) Urine Ethyl Alcohol Neg (NEG) Nasal Screen MRSA (PCR) Negative (Negative) O2 Saturation 96 % (92-99) Arterial Blood pH 7.34 (7.35-7.45) Arterial Blood pCO2 at Patient Temp 40 mmHg (35-46) Arterial Blood pO2 at Patient Temp 83 mmHg (85-108) Arterial Blood HCO3 21 mmol/L (21-28) Arterial Blood Base Excess -5 mmol/L (-3-3) FiO2 90 White Blood Count 10.3 x10^3/uL (4.0-11.0) Red Blood Count 3.81 x10^6/uL (4.30-5.70) Hemoglobin 11.6 g/dL (13.0-17.5) Hematocrit 34.3 % (39.0-53.0) Mean Corpuscular Volume 90 fL (79-100) Mean Corpuscular Hemoglobin 30 pg (25-35) Mean Corpuscular Hemoglobin Concent 34 g/dL (31-37) Red Cell Distribution Width 13.3 % (11.5-14.5) Platelet Count 231 x10^3/uL (140-400) Neutrophils (%) (Auto) 79 % (31-73) Lymphocytes (%) (Auto) 13 % (24-48) Monocytes (%) (Auto) 8 % (0-9) Eosinophils (%) (Auto) 0 % (0-3) Basophils (%) (Auto) 1 % (0-3) Neutrophils # (Auto) 8.1 x10^3uL (1.8-7.7) Lymphocytes # (Auto) 1.3 x10^3/uL (1.0-4.8) Monocytes # (Auto) 0.8 x10^3/uL (0.0-1.1) Eosinophils # (Auto) 0.0 x10^3/uL (0.0-0.7) Basophils # (Auto) 0.0 x10^3/uL (0.0-0.2) Sodium Level 141 mmol/L (136-145) Potassium Level 3.8 mmol/L (3.5-5.1) Chloride Level 108 mmol/L (98-107) Carbon Dioxide Level 26 mmol/L (21-32) Anion Gap 7 (6-14) Blood Urea Nitrogen 19 mg/dL (8-26) Creatinine 1.3 mg/dL (0.7-1.3) Estimated GFR (Cockcroft-Gault) 62.5 BUN/Creatinine Ratio 15 (6-20) Glucose Level 139 mg/dL (70-99) Calcium Level 8.4 mg/dL (8.5-10.1) Total Bilirubin 0.5 mg/dL (0.2-1.0) Aspartate Amino Transf (AST/SGOT) 39 U/L (15-37) Alanine Aminotransferase (ALT/SGPT) 64 U/L (16-63) Alkaline Phosphatase 57 U/L (46-116) Total Protein 6.3 g/dL (6.4-8.2) Albumin 1.9 g/dL (3.4-5.0) Albumin/Globulin Ratio 0.4 (1.0-1.7) Laboratory Tests Test 03/09/18 11:00 03/09/18 13:05 03/10/18 04:20 Nasal Screen MRSA (PCR) Negative (Negative) O2 Saturation 96 % (92-99) Arterial Blood pH 7.34 (7.35-7.45) Arterial Blood pCO2 at Patient Temp 40 mmHg (35-46) Arterial Blood pO2 at Patient Temp 83 mmHg (85-108) Arterial Blood HCO3 21 mmol/L (21-28) Arterial Blood Base Excess -5 mmol/L (-3-3) FiO2 90 White Blood Count 10.3 x10^3/uL (4.0-11.0) Red Blood Count 3.81 x10^6/uL (4.30-5.70) Hemoglobin 11.6 g/dL (13.0-17.5) Hematocrit 34.3 % (39.0-53.0) Mean Corpuscular Volume 90 fL (79-100) Mean Corpuscular Hemoglobin 30 pg (25-35) Mean Corpuscular Hemoglobin Concent 34 g/dL (31-37) Red Cell Distribution Width 13.3 % (11.5-14.5) Platelet Count 231 x10^3/uL (140-400) Neutrophils (%) (Auto) 79 % (31-73) Lymphocytes (%) (Auto) 13 % (24-48) Monocytes (%) (Auto) 8 % (0-9) Eosinophils (%) (Auto) 0 % (0-3) Basophils (%) (Auto) 1 % (0-3) Neutrophils # (Auto) 8.1 x10^3uL (1.8-7.7) Lymphocytes # (Auto) 1.3 x10^3/uL (1.0-4.8) Monocytes # (Auto) 0.8 x10^3/uL (0.0-1.1) Eosinophils # (Auto) 0.0 x10^3/uL (0.0-0.7) Basophils # (Auto) 0.0 x10^3/uL (0.0-0.2) Sodium Level 141 mmol/L (136-145) Potassium Level 3.8 mmol/L (3.5-5.1) Chloride Level 108 mmol/L (98-107) Carbon Dioxide Level 26 mmol/L (21-32) Anion Gap 7 (6-14) Blood Urea Nitrogen 19 mg/dL (8-26) Creatinine 1.3 mg/dL (0.7-1.3) Estimated GFR (Cockcroft-Gault) 62.5 BUN/Creatinine Ratio 15 (6-20) Glucose Level 139 mg/dL (70-99) Calcium Level 8.4 mg/dL (8.5-10.1) Total Bilirubin 0.5 mg/dL (0.2-1.0) Aspartate Amino Transf (AST/SGOT) 39 U/L (15-37) Alanine Aminotransferase (ALT/SGPT) 64 U/L (16-63) Alkaline Phosphatase 57 U/L (46-116) Total Protein 6.3 g/dL (6.4-8.2) Albumin 1.9 g/dL (3.4-5.0) Albumin/Globulin Ratio 0.4 (1.0-1.7) Problem List Problems Medical Problems: (1) Diverticulitis of colon with perforation Status: Acute Assessment/Plan perforated diverticulitis agree with critical care and aggressive abx pt does not appear to currently have a surgical abd, and is prohibitive surgical candidate SAMY GÓMEZ MD Mar 10, 2018 09:57
--- NOTE | 2018-03-10 10:01 | PDOC ---
PROGRESS NOTES Chief Complaint Chief Complaint status post cardiac arrest, nonsustained V. tach, 2 minutes run of CPR, 03/09/18 Fall in hospital Problems: -Diverticulitis of colon with perforation -GERD -hypertension -overweight -foot surgery History of Present Illness History of Present Illness Admitted for perforation of the diverticulitis, first episode of diverticulitis. Was actually being planned for starting a liquid diet possibly over the weekend But about 6:15 AM Sunday, found on the ground, unresponsive, nonsustained V. tach, 2 minutes of CPR, with ROSC Seen now in ICU, intubated, sedated, requiring high FIO2 settings (80-90%) Sedated C-collar on. 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 OGT & ETT NECK: C-collar in place LUNGS: Mechanical breath sounds CV: Distant heart tones ABDOMEN:n Obese, hypoactive bowel sounds, soft, no grimace to palpation : Galvan in place EXT: No gross edema or cyanosis SKIN: warm without rash Right femoral line - clean General: No acute distress Heart: Regular rate Lungs: Clear, Other Abdomen: Soft, No tenderness Extremities: No edema Skin: No rashes, Other (warm, dry) Labs LABS Laboratory Tests Test 03/09/18 11:00 03/09/18 13:05 03/10/18 04:20 03/10/18 09:45 Nasal Screen MRSA (PCR) Negative (Negative) O2 Saturation 96 % (92-99) 93 % (92-99) Arterial Blood pH 7.34 (7.35-7.45) 7.46 (7.35-7.45) Arterial Blood pCO2 at Patient Temp 40 mmHg (35-46) 36 mmHg (35-46) Arterial Blood pO2 at Patient Temp 83 mmHg (85-108) 63 mmHg (85-108) Arterial Blood HCO3 21 mmol/L (21-28) 25 mmol/L (21-28) Arterial Blood Base Excess -5 mmol/L (-3-3) 1 mmol/L (-3-3) FiO2 90 80 White Blood Count 10.3 x10^3/uL (4.0-11.0) Red Blood Count 3.81 x10^6/uL (4.30-5.70) Hemoglobin 11.6 g/dL (13.0-17.5) Hematocrit 34.3 % (39.0-53.0) Mean Corpuscular Volume 90 fL (79-100) Mean Corpuscular Hemoglobin 30 pg (25-35) Mean Corpuscular Hemoglobin Concent 34 g/dL (31-37) Red Cell Distribution Width 13.3 % (11.5-14.5) Platelet Count 231 x10^3/uL (140-400) Neutrophils (%) (Auto) 79 % (31-73) Lymphocytes (%) (Auto) 13 % (24-48) Monocytes (%) (Auto) 8 % (0-9) Eosinophils (%) (Auto) 0 % (0-3) Basophils (%) (Auto) 1 % (0-3) Neutrophils # (Auto) 8.1 x10^3uL (1.8-7.7) Lymphocytes # (Auto) 1.3 x10^3/uL (1.0-4.8) Monocytes # (Auto) 0.8 x10^3/uL (0.0-1.1) Eosinophils # (Auto) 0.0 x10^3/uL (0.0-0.7) Basophils # (Auto) 0.0 x10^3/uL (0.0-0.2) Sodium Level 141 mmol/L (136-145) Potassium Level 3.8 mmol/L (3.5-5.1) Chloride Level 108 mmol/L (98-107) Carbon Dioxide Level 26 mmol/L (21-32) Anion Gap 7 (6-14) Blood Urea Nitrogen 19 mg/dL (8-26) Creatinine 1.3 mg/dL (0.7-1.3) Estimated GFR (Cockcroft-Gault) 62.5 BUN/Creatinine Ratio 15 (6-20) Glucose Level 139 mg/dL (70-99) Calcium Level 8.4 mg/dL (8.5-10.1) Total Bilirubin 0.5 mg/dL (0.2-1.0) Aspartate Amino Transf (AST/SGOT) 39 U/L (15-37) Alanine Aminotransferase (ALT/SGPT) 64 U/L (16-63) Alkaline Phosphatase 57 U/L (46-116) Total Protein 6.3 g/dL (6.4-8.2) Albumin 1.9 g/dL (3.4-5.0) Albumin/Globulin Ratio 0.4 (1.0-1.7) Review of Systems Review of Systems On the vent sedated Assessment and Plan Assessmemt and Plan Problems Medical Problems: (1) Diverticulitis of colon with perforation Status: Acute Comment Review of Relevant I have reviewed the following items kalin (where applicable) has been applied. Labs Laboratory Tests Test 03/09/18 08:10 03/09/18 08:44 03/09/18 08:45 03/09/18 09:20 O2 Saturation 90 % (92-99) Arterial Blood pH 7.29 (7.35-7.45) Arterial Blood pCO2 at Patient Temp 44 mmHg (35-46) Arterial Blood pO2 at Patient Temp 66 mmHg (85-108) Arterial Blood HCO3 21 mmol/L (21-28) Arterial Blood Base Excess -6 mmol/L (-3-3) Oxyhemoglobin 89.6 % Methemoglobin 0.2 % (0.0-1.9) Carbon Monoxide, Quantitative 0.7 % (0.0-1.9) FiO2 100 Glucose (Fingerstick) 222 mg/dL (70-99) Sodium Level 134 mmol/L (136-145) Potassium Level 4.6 mmol/L (3.5-5.1) Chloride Level 99 mmol/L (98-107) Carbon Dioxide Level 22 mmol/L (21-32) Anion Gap 13 (6-14) Blood Urea Nitrogen 20 mg/dL (8-26) Creatinine 1.8 mg/dL (0.7-1.3) Estimated GFR (Cockcroft-Gault) 42.9 BUN/Creatinine Ratio 11 (6-20) Glucose Level 239 mg/dL (70-99) Calcium Level 8.6 mg/dL (8.5-10.1) Magnesium Level 2.0 mg/dL (1.8-2.4) Total Bilirubin 0.8 mg/dL (0.2-1.0) Aspartate Amino Transf (AST/SGOT) 61 U/L (15-37) Alanine Aminotransferase (ALT/SGPT) 90 U/L (16-63) Alkaline Phosphatase 94 U/L (46-116) Creatine Kinase 40 U/L (39-308) Creatine Kinase MB (Mass) < 0.5 ng/mL (0.0-3.6) Creatine Kinase MB Relative Index < 0.5 % (0-4) Troponin I Quantitative 0.077 ng/mL (0.000-0.055) Total Protein 7.6 g/dL (6.4-8.2) Albumin 2.5 g/dL (3.4-5.0) Albumin/Globulin Ratio 0.5 (1.0-1.7) White Blood Count 19.1 x10^3/uL (4.0-11.0) Red Blood Count 4.59 x10^6/uL (4.30-5.70) Hemoglobin 13.9 g/dL (13.0-17.5) Hematocrit 41.3 % (39.0-53.0) Mean Corpuscular Volume 90 fL (79-100) Mean Corpuscular Hemoglobin 30 pg (25-35) Mean Corpuscular Hemoglobin Concent 34 g/dL (31-37) Red Cell Distribution Width 13.5 % (11.5-14.5) Platelet Count 282 x10^3/uL (140-400) Neutrophils (%) (Auto) 84 % (31-73) Lymphocytes (%) (Auto) 7 % (24-48) Monocytes (%) (Auto) 9 % (0-9) Eosinophils (%) (Auto) 0 % (0-3) Basophils (%) (Auto) 0 % (0-3) Neutrophils # (Auto) 16.1 x10^3uL (1.8-7.7) Lymphocytes # (Auto) 1.3 x10^3/uL (1.0-4.8) Monocytes # (Auto) 1.7 x10^3/uL (0.0-1.1) Eosinophils # (Auto) 0.0 x10^3/uL (0.0-0.7) Basophils # (Auto) 0.1 x10^3/uL (0.0-0.2) Segmented Neutrophils % 78 % (35-66) Band Neutrophils % 8 % (0-9) Lymphocytes % 7 % (24-48) Monocytes % 6 % (0-10) Myelocytes % 1 % (0-0) Platelet Estimate Adequate (ADEQUATE) Large Platelets Occ Prothrombin Time 14.8 SEC (11.7-14.0) Prothromb Time International Ratio 1.2 (0.8-1.1) Test 03/09/18 09:43 03/09/18 11:00 03/09/18 13:05 03/10/18 04:20 Urine Opiates Screen Pos (NEG) Urine Methadone Screen Neg (NEG) Urine Barbiturates Neg (NEG) Urine Phencyclidine Screen Neg (NEG) Urine Amphetamine/Methamphetamine Neg (NEG) Urine Benzodiazepines Screen Pos (NEG) Urine Cocaine Screen Pos (NEG) Urine Cannabinoids Screen Pos (NEG) Urine Ethyl Alcohol Neg (NEG) Nasal Screen MRSA (PCR) Negative (Negative) O2 Saturation 96 % (92-99) Arterial Blood pH 7.34 (7.35-7.45) Arterial Blood pCO2 at Patient Temp 40 mmHg (35-46) Arterial Blood pO2 at Patient Temp 83 mmHg (85-108) Arterial Blood HCO3 21 mmol/L (21-28) Arterial Blood Base Excess -5 mmol/L (-3-3) FiO2 90 White Blood Count 10.3 x10^3/uL (4.0-11.0) Red Blood Count 3.81 x10^6/uL (4.30-5.70) Hemoglobin 11.6 g/dL (13.0-17.5) Hematocrit 34.3 % (39.0-53.0) Mean Corpuscular Volume 90 fL (79-100) Mean Corpuscular Hemoglobin 30 pg (25-35) Mean Corpuscular Hemoglobin Concent 34 g/dL (31-37) Red Cell Distribution Width 13.3 % (11.5-14.5) Platelet Count 231 x10^3/uL (140-400) Neutrophils (%) (Auto) 79 % (31-73) Lymphocytes (%) (Auto) 13 % (24-48) Monocytes (%) (Auto) 8 % (0-9) Eosinophils (%) (Auto) 0 % (0-3) Basophils (%) (Auto) 1 % (0-3) Neutrophils # (Auto) 8.1 x10^3uL (1.8-7.7) Lymphocytes # (Auto) 1.3 x10^3/uL (1.0-4.8) Monocytes # (Auto) 0.8 x10^3/uL (0.0-1.1) Eosinophils # (Auto) 0.0 x10^3/uL (0.0-0.7) Basophils # (Auto) 0.0 x10^3/uL (0.0-0.2) Sodium Level 141 mmol/L (136-145) Potassium Level 3.8 mmol/L (3.5-5.1) Chloride Level 108 mmol/L (98-107) Carbon Dioxide Level 26 mmol/L (21-32) Anion Gap 7 (6-14) Blood Urea Nitrogen 19 mg/dL (8-26) Creatinine 1.3 mg/dL (0.7-1.3) Estimated GFR (Cockcroft-Gault) 62.5 BUN/Creatinine Ratio 15 (6-20) Glucose Level 139 mg/dL (70-99) Calcium Level 8.4 mg/dL (8.5-10.1) Total Bilirubin 0.5 mg/dL (0.2-1.0) Aspartate Amino Transf (AST/SGOT) 39 U/L (15-37) Alanine Aminotransferase (ALT/SGPT) 64 U/L (16-63) Alkaline Phosphatase 57 U/L (46-116) Total Protein 6.3 g/dL (6.4-8.2) Albumin 1.9 g/dL (3.4-5.0) Albumin/Globulin Ratio 0.4 (1.0-1.7) Test 03/10/18 09:45 O2 Saturation 93 % (92-99) Arterial Blood pH 7.46 (7.35-7.45) Arterial Blood pCO2 at Patient Temp 36 mmHg (35-46) Arterial Blood pO2 at Patient Temp 63 mmHg (85-108) Arterial Blood HCO3 25 mmol/L (21-28) Arterial Blood Base Excess 1 mmol/L (-3-3) FiO2 80 Laboratory Tests Test 03/09/18 11:00 03/09/18 13:05 03/10/18 04:20 03/10/18 09:45 Nasal Screen MRSA (PCR) Negative (Negative) O2 Saturation 96 % (92-99) 93 % (92-99) Arterial Blood pH 7.34 (7.35-7.45) 7.46 (7.35-7.45) Arterial Blood pCO2 at Patient Temp 40 mmHg (35-46) 36 mmHg (35-46) Arterial Blood pO2 at Patient Temp 83 mmHg (85-108) 63 mmHg (85-108) Arterial Blood HCO3 21 mmol/L (21-28) 25 mmol/L (21-28) Arterial Blood Base Excess -5 mmol/L (-3-3) 1 mmol/L (-3-3) FiO2 90 80 White Blood Count 10.3 x10^3/uL (4.0-11.0) Red Blood Count 3.81 x10^6/uL (4.30-5.70) Hemoglobin 11.6 g/dL (13.0-17.5) Hematocrit 34.3 % (39.0-53.0) Mean Corpuscular Volume 90 fL (79-100) Mean Corpuscular Hemoglobin 30 pg (25-35) Mean Corpuscular Hemoglobin Concent 34 g/dL (31-37) Red Cell Distribution Width 13.3 % (11.5-14.5) Platelet Count 231 x10^3/uL (140-400) Neutrophils (%) (Auto) 79 % (31-73) Lymphocytes (%) (Auto) 13 % (24-48) Monocytes (%) (Auto) 8 % (0-9) Eosinophils (%) (Auto) 0 % (0-3) Basophils (%) (Auto) 1 % (0-3) Neutrophils # (Auto) 8.1 x10^3uL (1.8-7.7) Lymphocytes # (Auto) 1.3 x10^3/uL (1.0-4.8) Monocytes # (Auto) 0.8 x10^3/uL (0.0-1.1) Eosinophils # (Auto) 0.0 x10^3/uL (0.0-0.7) Basophils # (Auto) 0.0 x10^3/uL (0.0-0.2) Sodium Level 141 mmol/L (136-145) Potassium Level 3.8 mmol/L (3.5-5.1) Chloride Level 108 mmol/L (98-107) Carbon Dioxide Level 26 mmol/L (21-32) Anion Gap 7 (6-14) Blood Urea Nitrogen 19 mg/dL (8-26) Creatinine 1.3 mg/dL (0.7-1.3) Estimated GFR (Cockcroft-Gault) 62.5 BUN/Creatinine Ratio 15 (6-20) Glucose Level 139 mg/dL (70-99) Calcium Level 8.4 mg/dL (8.5-10.1) Total Bilirubin 0.5 mg/dL (0.2-1.0) Aspartate Amino Transf (AST/SGOT) 39 U/L (15-37) Alanine Aminotransferase (ALT/SGPT) 64 U/L (16-63) Alkaline Phosphatase 57 U/L (46-116) Total Protein 6.3 g/dL (6.4-8.2) Albumin 1.9 g/dL (3.4-5.0) Albumin/Globulin Ratio 0.4 (1.0-1.7) Microbiology 03/07/18 Blood Culture - Preliminary, Resulted NO GROWTH AFTER 2 DAYS Medications Current Medications Sodium Chloride (Normal Saline Flush) 3 ml QSHIFT PRN IV AFTER MEDS AND BLOOD DRAWS; Start 03/07/18 at 11:00 Sodium Chloride 1,000 ml @ 1,000 mls/hr Q1H IV Last administered on 03/07/18at 11:32; Start 03/07/18 at 11:00; Stop 03/07/18 at 11:59; Status DC Iohexol (Omnipaque 300 Mg/ml) 75 ml 1X ONCE IV Last administered on 03/07/18at 12:46; Start 03/07/18 at 11:15; Stop 03/07/18 at 11:16; Status DC Info (CONTRAST GIVEN -- Rx MONITORING) 1 each PRN DAILY PRN MC SEE COMMENTS; Start 03/07/18 at 11:15; Stop 03/09/18 at 11:14; Status DC Sodium Chloride 1,000 ml @ 1,000 mls/hr 1X ONCE IV Last administered on at 12:37; Start 03/07/18 at 12:00; Stop 03/07/18 at 12:59; Status DC Fentanyl Citrate (Fentanyl 2ml Vial) 50 mcg 1X ONCE IV Last administered on 03/07/18at 13:07; Start 03/07/18 at 13:00; Stop 03/07/18 at 13:01; Status DC Metronidazole 100 ml @ 100 mls/hr 1X ONCE IV ; Start 03/07/18 at 13:30; Stop at 14:29; Status DC Ciprofloxacin/ Dextrose 200 ml @ 200 mls/hr ONCE STAT IV Last administered on 03/07/18at 13:42; Start 03/07/18 at 13:12; Stop 03/07/18 at 14:11; Status DC Piperacillin Sod/ Tazobactam Sod 3.375 gm/Sodium Chloride 50 ml @ 100 mls/hr 1X ONCE IV Last administered on 03/07/18at 14:43; Start 03/07/18 at 14:30; Stop 03/07/18 at 14:59; Status DC Diphenhydramine HCl (Benadryl) 50 mg 1X ONCE IVP Last administered on at 14:33; Start 03/07/18 at 14:15; Stop 03/07/18 at 14:16; Status DC Fentanyl Citrate (Fentanyl 2ml Vial) 25 mcg 1X ONCE IV ; Start 03/07/18 at 14:15 ; Stop 03/07/18 at 14:16; Status Cancel Morphine Sulfate (Morphine Sulfate) 4 mg 1X ONCE IV Last administered on at 14:35; Start 03/07/18 at 14:30; Stop 03/07/18 at 14:31; Status DC Ondansetron HCl (Zofran) 4 mg PRN Q8HRS PRN IV NAUSEA/VOMITING; Start 03/07/18 at 14:30; Stop 03/08/18 at 14:29; Status DC Morphine Sulfate (Morphine Sulfate) 4 mg PRN Q2HR PRN IV PAIN Last administered on 03/08/18 08:20; Start 03/07/18 at 14:30; Stop 03/08/18 at 14:29; Status DC Piperacillin Sod/ Tazobactam Sod 3.375 gm/Sodium Chloride 50 ml @ 100 mls/hr Q6HRS IV Last administered on 03/10/18at 05:37; Start 03/07/18 at 18:00 Metronidazole 100 ml @ 100 mls/hr Q8HRS IV Last administered on 03/09/18at 11:19 ; Start 03/07/18 at 22:00; Stop 03/09/18 at 15:10; Status DC Sodium Chloride 500 ml @ 500 mls/hr 1X ONCE IV Last administered on 03/07/18at 16:45; Start 03/07/18 at 16:45; Stop 03/07/18 at 17:44; Status DC Amino Acids/ Glycerin/ Electrolytes 1,000 ml @ 80 mls/hr [id number] IV Last administered on 03/10/18 09:25; Start 03/07/18 at 16:45 Acetaminophen (Tylenol) 650 mg PRN Q6HRS PRN PO fever ; Start 03/07/18 at 18:00 Pantoprazole Sodium (PROTONIX VIAL for IV PUSH) 40 mg DAILYAC IVP Last administered on 03/10/18 09:27; Start 03/08/18 at 07:45 Morphine Sulfate (Morphine Sulfate) 4 mg PRN Q2HR PRN IV MODRATE PAIN Last administered on 03/09/18at 04:26; Start 03/08/18 at 14:45 Lorazepam (Ativan) 1 mg PRN Q4HRS PRN IV ANXIETY / AGITATION Last administered on 03/08/18at 21:41; Start 03/08/18 at 20:30 Ondansetron HCl (Zofran) 4 mg PRN Q6HRS PRN IV NAUSEA/VOMITING 1ST CHOICE Last administered on 03/09/18at 02:07; Start 03/09/18 at 02:00 Etomidate (Amidate) 20 mg STK-MED ONCE IV ; Start 03/09/18 at 06:55; Stop at 06:56; Status DC Norepinephrine Bitartrate 250 ml @ As Directed STK-MED ONCE IV ; Start 03/09/18 at 06:55; Stop 03/09/18 at 06:56; Status DC Midazolam HCl (Versed) 5 mg STK-MED ONCE .ROUTE ; Start 03/09/18 at 06:55; Stop 03/09/18 at 06:56; Status DC Fentanyl Citrate (Fentanyl 2ml Vial) 100 mcg STK-MED ONCE .ROUTE ; Start at 06:55; Stop 03/09/18 at 06:56; Status DC Succinylcholine Chloride (Anectine) 200 mg STK-MED ONCE .ROUTE ; Start 03/09/18 at 06:56; Stop 03/09/18 at 06:57; Status DC Fentanyl Citrate 30 ml @ 0 mls/hr CONT PRN IV PER PROTOCOL Last administered on 03/10/18at 01:56; Start 03/09/18 at 07:00 Fentanyl Citrate (Fentanyl 2ml Vial) 25 mcg PRN Q1HR PRN IV MILD PAIN; Start at 07:00 Fentanyl Citrate (Fentanyl 2ml Vial) 50 mcg PRN Q1HR PRN IV MOD TO SEVERE PAIN ; Start 03/09/18 at 07:00 Chlorhexidine Gluconate (Peridex) 15 ml BID MM Last administered on 03/10/18at 09 :27; Start 03/09/18 at 09:00 Midazolam HCl (Versed) 2 mg PRN Q30MIN PRN IV SEDATION; Start 03/09/18 at 07:00 Midazolam HCl 100 ml @ 0 mls/hr CONT PRN IV PER PROTOCOL Last administered on at 09:22; Start 03/09/18 at 07:00 Enoxaparin Sodium (Lovenox 40mg Syringe) 40 mg Q12H SQ Last administered on 03/10at 09:31; Start 03/09/18 at 09:00 Sodium Chloride 1,000 ml @ 125 mls/hr Q8H IV Last administered on 03/10/18at 09: 23; Start 03/09/18 at 10:15 Sodium Chloride 1,000 ml @ 1,000 mls/hr 1X ONCE IV Last administered on at 10:15; Start 03/09/18 at 10:15; Stop 03/09/18 at 11:14; Status DC Norepinephrine Bitartrate 250 ml @ As Directed STK-MED ONCE IV ; Start 03/09/18 at 10:37; Stop 03/09/18 at 10:38; Status DC Phenylephrine HCl 20 mg/Sodium Chloride 252 ml @ 22.68 mls/ hr 1X ONCE IV ; Start 03/09/18 at 10:45; Stop 03/09/18 at 21:51; Status DC Iohexol (Omnipaque 300 Mg/ml) 75 ml 1X ONCE IV ; Start 03/09/18 at 11:30; Stop 03/09/18 at 11:35; Status DC Micafungin Sodium 100 mg/Dextrose 100 ml @ 100 mls/hr Q24H IV Last administered on 03/09/18at 16:22; Start 03/09/18 at 16:00 Linezolid/Dextrose 300 ml @ 300 mls/hr Q12H IV Last administered on 03/10/18at 05:37; Start 03/09/18 at 17:00 Norepinephrine Bitartrate 250 ml @ 1.875 mls/ hr CONT PRN IV SEE I/O RECORD Last administered on 03/09/18at 16:18; Start 03/09/18 at 16:00 Furosemide (Lasix) 40 mg 1X ONCE IVP Last administered on 03/10/18at 08:49; Start 03/10/18 at 09:00; Stop 03/10/18 at 09:01; Status DC Vitals/I & O Vital Sign - Last 24 Hours 03/09/18 03/09/18 03/09/18 03/09/18 10:00 11:00 11:48 12:00 Pulse 124 121 117 Resp 20 20 20 B/P (MAP) 109/73 (85) 111/79 (90) 103/67 (79) Pulse Ox 89 91 94 93 O2 Delivery Ventilator Ventilator Ventilator Ventilator 03/09/18 03/09/18 03/09/18 03/09/18 12:00 13:00 14:00 14:01 Temp 99.7 99.7 Pulse 110 105 Resp 20 20 B/P (MAP) 143/85 (104) 120/76 (91) Pulse Ox 94 95 95 O2 Delivery Mechanical Ventilator Ventilator Ventilator Ventilator 03/09/18 03/09/18 03/09/18 03/09/18 15:00 15:34 16:00 16:57 Temp 99.5 99.5 Pulse 100 100 95 Resp 20 20 20 B/P (MAP) 152/88 (109) 141/82 (101) 141/80 (100) Pulse Ox 99 96 95 O2 Delivery Ventilator Ventilator Ventilator Ventilator 03/09/18 03/09/18 03/09/18 03/09/18 17:07 18:00 19:00 19:29 Pulse 95 96 Resp 20 20 B/P (MAP) 129/63 (85) 98/63 (75) Pulse Ox 95 93 93 93 O2 Delivery Ventilator Ventilator Ventilator Ventilator 03/09/18 03/09/18 03/09/18 03/09/18 20:00 20:00 20:00 21:00 Temp 99.3 99.3 Pulse 100 100 91 Resp 20 20 B/P (MAP) 116/63 (80) 114/77 (89) 146/63 (90) Pulse Ox 94 92 O2 Delivery Ventilator Mechanical Ventilator Ventilator 03/09/18 03/09/18 03/09/18 03/09/18 21:30 22:00 23:00 23:50 Pulse 101 89 Resp 20 20 B/P (MAP) 110/63 (79) 109/63 (78) Pulse Ox 93 95 95 93 O2 Delivery Ventilator Ventilator Ventilator Ventilator 03/10/18 03/10/18 03/10/18 03/10/18 00:00 00:00 00:00 01:00 Temp 99.1 99.1 Pulse 90 90 90 Resp 20 20 B/P (MAP) 110/20 (50) 110/60 (77) 108/61 (77) Pulse Ox 95 97 O2 Delivery Mechanical Ventilator Ventilator Ventilator 03/10/18 03/10/18 03/10/18 03/10/18 01:47 01:56 02:00 02:26 Pulse 91 Resp 20 20 B/P (MAP) 106/61 (76) Pulse Ox 93 93 97 95 O2 Delivery Ventilator Ventilator Ventilator O2 Flow Rate 2.0 03/10/18 03/10/18 03/10/18 03/10/18 03:00 03:09 04:00 04:00 Temp 99.0 99.0 Pulse 89 92 92 Resp 20 20 B/P (MAP) 111/65 (80) 131/71 (91) Pulse Ox 96 96 94 O2 Delivery Ventilator Ventilator Ventilator 03/10/18 03/10/18 03/10/18 03/10/18 04:00 05:00 05:50 06:00 Pulse 89 93 Resp 20 20 B/P (MAP) 121/77 (92) 133/82 (99) Pulse Ox 95 94 93 O2 Delivery Mechanical Ventilator Ventilator Ventilator Ventilator 03/10/18 03/10/18 03/10/18 03/10/18 07:00 08:00 08:00 08:17 Pulse 95 92 Resp 21 B/P (MAP) 152/82 (105) Pulse Ox 99 88 O2 Delivery Ventilator Mechanical Ventilator Ventilator Intake and Output 03/09/18 03/09/18 03/10/18 15:00 23:00 07:00 Intake Total 50 ml 4412.54 ml 3903.2 ml Output Total 325 ml 1040 ml 665 ml Balance -275 ml 3372.54 ml 3238.2 ml CASS ARMENTA MD Mar 10, 2018 10:01
--- NOTE | 2018-03-10 10:17 | RAD ---
Examination: Single frontal view of the chest HISTORY: History of hypoxia COMPARISON: 03/10/2018 FINDINGS: The ET tube is identified in the trachea at the level of the clavicles. Feeding tube is seen below the diaphragm likely within the stomach. Mild prominent appearing bilateral interstitial lung markings. Patchy airspace opacities identified in the bilateral infrahilar region grossly similar to prior exam. IMPRESSION: Unchanged exam. Electronically signed by: Wilber German MD (03/10/2018 10:13 AM) [facility]
[2018-03-10] MEDS ORDERED: PERFLUTREN PROTEIN-A MICROSPHR 0.22 MG/ML 3 ML VIAL. IV ONE ×2 (10:23→13:00)
--- NOTE | 2018-03-10 10:55 | PDOC ---
PULMONARY PROGRESS NOTES Subjective PT SEDATED OFF PRESSORS 80% 8 PEEP Vitals Vital Signs Date Time Temp Pulse Resp B/P (MAP) Pulse Ox O2 Delivery O2 Flow Rate FiO2 03/10/18 10:00 97 22 139/66 (90) 95 Ventilator 03/10/18 08:00 99.2 99.2 03/10/18 01:56 2.0 Lungs: Crackles Cardiovascular: S1, S2 Abdomen: Soft Extremities: Other (EDEMA) Skin: Warm Labs Laboratory Tests Test 03/09/18 08:10 03/09/18 08:44 03/09/18 08:45 03/09/18 09:20 O2 Saturation 90 % (92-99) Arterial Blood pH 7.29 (7.35-7.45) Arterial Blood pCO2 at Patient Temp 44 mmHg (35-46) Arterial Blood pO2 at Patient Temp 66 mmHg (85-108) Arterial Blood HCO3 21 mmol/L (21-28) Arterial Blood Base Excess -6 mmol/L (-3-3) Oxyhemoglobin 89.6 % Methemoglobin 0.2 % (0.0-1.9) Carbon Monoxide, Quantitative 0.7 % (0.0-1.9) FiO2 100 Glucose (Fingerstick) 222 mg/dL (70-99) Sodium Level 134 mmol/L (136-145) Potassium Level 4.6 mmol/L (3.5-5.1) Chloride Level 99 mmol/L (98-107) Carbon Dioxide Level 22 mmol/L (21-32) Anion Gap 13 (6-14) Blood Urea Nitrogen 20 mg/dL (8-26) Creatinine 1.8 mg/dL (0.7-1.3) Estimated GFR (Cockcroft-Gault) 42.9 BUN/Creatinine Ratio 11 (6-20) Glucose Level 239 mg/dL (70-99) Calcium Level 8.6 mg/dL (8.5-10.1) Magnesium Level 2.0 mg/dL (1.8-2.4) Total Bilirubin 0.8 mg/dL (0.2-1.0) Aspartate Amino Transf (AST/SGOT) 61 U/L (15-37) Alanine Aminotransferase (ALT/SGPT) 90 U/L (16-63) Alkaline Phosphatase 94 U/L (46-116) Creatine Kinase 40 U/L (39-308) Creatine Kinase MB (Mass) < 0.5 ng/mL (0.0-3.6) Creatine Kinase MB Relative Index < 0.5 % (0-4) Troponin I Quantitative 0.077 ng/mL (0.000-0.055) Total Protein 7.6 g/dL (6.4-8.2) Albumin 2.5 g/dL (3.4-5.0) Albumin/Globulin Ratio 0.5 (1.0-1.7) White Blood Count 19.1 x10^3/uL (4.0-11.0) Red Blood Count 4.59 x10^6/uL (4.30-5.70) Hemoglobin 13.9 g/dL (13.0-17.5) Hematocrit 41.3 % (39.0-53.0) Mean Corpuscular Volume 90 fL (79-100) Mean Corpuscular Hemoglobin 30 pg (25-35) Mean Corpuscular Hemoglobin Concent 34 g/dL (31-37) Red Cell Distribution Width 13.5 % (11.5-14.5) Platelet Count 282 x10^3/uL (140-400) Neutrophils (%) (Auto) 84 % (31-73) Lymphocytes (%) (Auto) 7 % (24-48) Monocytes (%) (Auto) 9 % (0-9) Eosinophils (%) (Auto) 0 % (0-3) Basophils (%) (Auto) 0 % (0-3) Neutrophils # (Auto) 16.1 x10^3uL (1.8-7.7) Lymphocytes # (Auto) 1.3 x10^3/uL (1.0-4.8) Monocytes # (Auto) 1.7 x10^3/uL (0.0-1.1) Eosinophils # (Auto) 0.0 x10^3/uL (0.0-0.7) Basophils # (Auto) 0.1 x10^3/uL (0.0-0.2) Segmented Neutrophils % 78 % (35-66) Band Neutrophils % 8 % (0-9) Lymphocytes % 7 % (24-48) Monocytes % 6 % (0-10) Myelocytes % 1 % (0-0) Platelet Estimate Adequate (ADEQUATE) Large Platelets Occ Prothrombin Time 14.8 SEC (11.7-14.0) Prothromb Time International Ratio 1.2 (0.8-1.1) Test 03/09/18 09:43 03/09/18 11:00 03/09/18 13:05 03/10/18 04:20 Urine Opiates Screen Pos (NEG) Urine Methadone Screen Neg (NEG) Urine Barbiturates Neg (NEG) Urine Phencyclidine Screen Neg (NEG) Urine Amphetamine/Methamphetamine Neg (NEG) Urine Benzodiazepines Screen Pos (NEG) Urine Cocaine Screen Pos (NEG) Urine Cannabinoids Screen Pos (NEG) Urine Ethyl Alcohol Neg (NEG) Nasal Screen MRSA (PCR) Negative (Negative) O2 Saturation 96 % (92-99) Arterial Blood pH 7.34 (7.35-7.45) Arterial Blood pCO2 at Patient Temp 40 mmHg (35-46) Arterial Blood pO2 at Patient Temp 83 mmHg (85-108) Arterial Blood HCO3 21 mmol/L (21-28) Arterial Blood Base Excess -5 mmol/L (-3-3) FiO2 90 White Blood Count 10.3 x10^3/uL (4.0-11.0) Red Blood Count 3.81 x10^6/uL (4.30-5.70) Hemoglobin 11.6 g/dL (13.0-17.5) Hematocrit 34.3 % (39.0-53.0) Mean Corpuscular Volume 90 fL (79-100) Mean Corpuscular Hemoglobin 30 pg (25-35) Mean Corpuscular Hemoglobin Concent 34 g/dL (31-37) Red Cell Distribution Width 13.3 % (11.5-14.5) Platelet Count 231 x10^3/uL (140-400) Neutrophils (%) (Auto) 79 % (31-73) Lymphocytes (%) (Auto) 13 % (24-48) Monocytes (%) (Auto) 8 % (0-9) Eosinophils (%) (Auto) 0 % (0-3) Basophils (%) (Auto) 1 % (0-3) Neutrophils # (Auto) 8.1 x10^3uL (1.8-7.7) Lymphocytes # (Auto) 1.3 x10^3/uL (1.0-4.8) Monocytes # (Auto) 0.8 x10^3/uL (0.0-1.1) Eosinophils # (Auto) 0.0 x10^3/uL (0.0-0.7) Basophils # (Auto) 0.0 x10^3/uL (0.0-0.2) Sodium Level 141 mmol/L (136-145) Potassium Level 3.8 mmol/L (3.5-5.1) Chloride Level 108 mmol/L (98-107) Carbon Dioxide Level 26 mmol/L (21-32) Anion Gap 7 (6-14) Blood Urea Nitrogen 19 mg/dL (8-26) Creatinine 1.3 mg/dL (0.7-1.3) Estimated GFR (Cockcroft-Gault) 62.5 BUN/Creatinine Ratio 15 (6-20) Glucose Level 139 mg/dL (70-99) Calcium Level 8.4 mg/dL (8.5-10.1) Total Bilirubin 0.5 mg/dL (0.2-1.0) Aspartate Amino Transf (AST/SGOT) 39 U/L (15-37) Alanine Aminotransferase (ALT/SGPT) 64 U/L (16-63) Alkaline Phosphatase 57 U/L (46-116) Total Protein 6.3 g/dL (6.4-8.2) Albumin 1.9 g/dL (3.4-5.0) Albumin/Globulin Ratio 0.4 (1.0-1.7) Test 03/10/18 09:45 O2 Saturation 93 % (92-99) Arterial Blood pH 7.46 (7.35-7.45) Arterial Blood pCO2 at Patient Temp 36 mmHg (35-46) Arterial Blood pO2 at Patient Temp 63 mmHg (85-108) Arterial Blood HCO3 25 mmol/L (21-28) Arterial Blood Base Excess 1 mmol/L (-3-3) FiO2 80 Laboratory Tests Test 03/09/18 11:00 03/09/18 13:05 03/10/18 04:20 03/10/18 09:45 Nasal Screen MRSA (PCR) Negative (Negative) O2 Saturation 96 % (92-99) 93 % (92-99) Arterial Blood pH 7.34 (7.35-7.45) 7.46 (7.35-7.45) Arterial Blood pCO2 at Patient Temp 40 mmHg (35-46) 36 mmHg (35-46) Arterial Blood pO2 at Patient Temp 83 mmHg (85-108) 63 mmHg (85-108) Arterial Blood HCO3 21 mmol/L (21-28) 25 mmol/L (21-28) Arterial Blood Base Excess -5 mmol/L (-3-3) 1 mmol/L (-3-3) FiO2 90 80 White Blood Count 10.3 x10^3/uL (4.0-11.0) Red Blood Count 3.81 x10^6/uL (4.30-5.70) Hemoglobin 11.6 g/dL (13.0-17.5) Hematocrit 34.3 % (39.0-53.0) Mean Corpuscular Volume 90 fL (79-100) Mean Corpuscular Hemoglobin 30 pg (25-35) Mean Corpuscular Hemoglobin Concent 34 g/dL (31-37) Red Cell Distribution Width 13.3 % (11.5-14.5) Platelet Count 231 x10^3/uL (140-400) Neutrophils (%) (Auto) 79 % (31-73) Lymphocytes (%) (Auto) 13 % (24-48) Monocytes (%) (Auto) 8 % (0-9) Eosinophils (%) (Auto) 0 % (0-3) Basophils (%) (Auto) 1 % (0-3) Neutrophils # (Auto) 8.1 x10^3uL (1.8-7.7) Lymphocytes # (Auto) 1.3 x10^3/uL (1.0-4.8) Monocytes # (Auto) 0.8 x10^3/uL (0.0-1.1) Eosinophils # (Auto) 0.0 x10^3/uL (0.0-0.7) Basophils # (Auto) 0.0 x10^3/uL (0.0-0.2) Sodium Level 141 mmol/L (136-145) Potassium Level 3.8 mmol/L (3.5-5.1) Chloride Level 108 mmol/L (98-107) Carbon Dioxide Level 26 mmol/L (21-32) Anion Gap 7 (6-14) Blood Urea Nitrogen 19 mg/dL (8-26) Creatinine 1.3 mg/dL (0.7-1.3) Estimated GFR (Cockcroft-Gault) 62.5 BUN/Creatinine Ratio 15 (6-20) Glucose Level 139 mg/dL (70-99) Calcium Level 8.4 mg/dL (8.5-10.1) Total Bilirubin 0.5 mg/dL (0.2-1.0) Aspartate Amino Transf (AST/SGOT) 39 U/L (15-37) Alanine Aminotransferase (ALT/SGPT) 64 U/L (16-63) Alkaline Phosphatase 57 U/L (46-116) Total Protein 6.3 g/dL (6.4-8.2) Albumin 1.9 g/dL (3.4-5.0) Albumin/Globulin Ratio 0.4 (1.0-1.7) Comments CXR REVIEWED The ET tube is identified in the trachea at the level of the clavicles. The feeding tube is seen below the level of the diaphragm likely within the stomach. Low lung volumes and technique accentuates heart size and pulmonary vascularity. Faint airspace opacities identified in the bilateral perihilar region. Bibasilar lung airspace opacities IMPRESSION: 1. Bibasilar lung airspace opacities likely atelectasis or infiltrates. 2. Mild congestive changes. 2. ET tube, feeding tube unchanged. Impression . IMPRESSION: 1. Acute respiratory failure, status post code blue. 2. Status post code blue patient with spontaneous return of circulation after one defibrillation and 2 minutes of chest compressions. 3. Septic shock. 4. Diverticulitis leading to septic shock. 5. Metabolic acidosis secondary to code blue, increased work of breathing and renal insufficiency. 6. Morbid obesity. 7. Leukocytosis. 8. Obstructive sleep apnea. 9. Possible aspiration pneumonia. Plan . D/W DR PADRON AND FAMILY WILL START LOVENOX 1MG/KG TILL PT STABLE ENOUGH TO TRAVEL TO CT FOR CT CHEST NO ABSOLUTE CONTRAINDICATION TO FULL DOSE LOVENOS ACCORDING TO DR PADRON NO V TACH CHECK VENOUS DOPPLER THIS AM PT INCREASE 02 REQUIREMENT NOW 0N 80 8 PEEP AND INVERSE RATIO CXR NO PTX ANTIBX PER ID TUBE FEEDING GI PROPH REPEAT TROPONIN CCT 35 MIN SPOKE TO MULTIPLE FAMILY MEMBERS/ RN/ RT SUZY MARQUEZ MD Mar 10, 2018 10:55
--- NOTE | 2018-03-10 11:25 | PDOC ---
PROGRESS NOTES Subjective Subjective Intubated. Presently off pressors. Objective Objective Vital Signs Date Time Temp Pulse Resp B/P (MAP) Pulse Ox O2 Delivery O2 Flow Rate FiO2 03/10/18 11:08 22 95 03/10/18 11:00 99 119/68 (85) Ventilator 03/10/18 08:00 99.2 99.2 03/10/18 01:56 2.0 Intake and Output 03/10/18 07:00 Intake Total 8365.74 ml Output Total 2030 ml Balance 6335.74 ml Intake Oral 0 ml IV Total 8365.74 ml Output Urine Total 2030 ml Physical Exam Abdomen: Soft, No tenderness Heart: Regular rate Extremities: No edema General: Other (intubated and sedated) HEENT: Atraumatic Lungs: Other (scattered crepitations bilaterally) Skin: Other (warm, dry) Assessment Assessment 1. s/p cardiopulmonary arrest, acute respiratory failure. s/p intubation and mechanical ventilation. Continue vent management per pulmonary team. Possible etiologies include pulmonary embolism and vagal reaction - I cannot find any rhythm strips proving VT. Telemetry did not show any arrhythmias thus far. 2-D echo showed LVEF 35% with mild RV dilatation..CT chest to rule out PE pending. Pulmonary started patient on Lovenox treatment empirically. Ischemic workup could be considered once patient is extubated. 2. Hypotension, sepsis: Currently off pressors. 3. Mild acute on chronic systolic heart failure: Patient was given intravenous Lasix earlier today based on chest x-ray findings with good diuresis 4. Sigmoid diverticulitis with perforation: General surgery team following. Continue intravenous antibiotics. Plan Plan of Care Problems Medical Problems: (1) Diverticulitis of colon with perforation Status: Acute Comment Review of Relevant I have reviewed the following items kalin (where applicable) has been applied. Labs Laboratory Tests Test 03/09/18 13:05 03/10/18 04:20 03/10/18 09:45 O2 Saturation 96 % (92-99) 93 % (92-99) Arterial Blood pH 7.34 (7.35-7.45) 7.46 (7.35-7.45) Arterial Blood pCO2 at Patient Temp 40 mmHg (35-46) 36 mmHg (35-46) Arterial Blood pO2 at Patient Temp 83 mmHg (85-108) 63 mmHg (85-108) Arterial Blood HCO3 21 mmol/L (21-28) 25 mmol/L (21-28) Arterial Blood Base Excess -5 mmol/L (-3-3) 1 mmol/L (-3-3) FiO2 90 80 White Blood Count 10.3 x10^3/uL (4.0-11.0) Red Blood Count 3.81 x10^6/uL (4.30-5.70) Hemoglobin 11.6 g/dL (13.0-17.5) Hematocrit 34.3 % (39.0-53.0) Mean Corpuscular Volume 90 fL (79-100) Mean Corpuscular Hemoglobin 30 pg (25-35) Mean Corpuscular Hemoglobin Concent 34 g/dL (31-37) Red Cell Distribution Width 13.3 % (11.5-14.5) Platelet Count 231 x10^3/uL (140-400) Neutrophils (%) (Auto) 79 % (31-73) Lymphocytes (%) (Auto) 13 % (24-48) Monocytes (%) (Auto) 8 % (0-9) Eosinophils (%) (Auto) 0 % (0-3) Basophils (%) (Auto) 1 % (0-3) Neutrophils # (Auto) 8.1 x10^3uL (1.8-7.7) Lymphocytes # (Auto) 1.3 x10^3/uL (1.0-4.8) Monocytes # (Auto) 0.8 x10^3/uL (0.0-1.1) Eosinophils # (Auto) 0.0 x10^3/uL (0.0-0.7) Basophils # (Auto) 0.0 x10^3/uL (0.0-0.2) Sodium Level 141 mmol/L (136-145) Potassium Level 3.8 mmol/L (3.5-5.1) Chloride Level 108 mmol/L (98-107) Carbon Dioxide Level 26 mmol/L (21-32) Anion Gap 7 (6-14) Blood Urea Nitrogen 19 mg/dL (8-26) Creatinine 1.3 mg/dL (0.7-1.3) Estimated GFR (Cockcroft-Gault) 62.5 BUN/Creatinine Ratio 15 (6-20) Glucose Level 139 mg/dL (70-99) Calcium Level 8.4 mg/dL (8.5-10.1) Total Bilirubin 0.5 mg/dL (0.2-1.0) Aspartate Amino Transf (AST/SGOT) 39 U/L (15-37) Alanine Aminotransferase (ALT/SGPT) 64 U/L (16-63) Alkaline Phosphatase 57 U/L (46-116) Total Protein 6.3 g/dL (6.4-8.2) Albumin 1.9 g/dL (3.4-5.0) Albumin/Globulin Ratio 0.4 (1.0-1.7) Microbiology 03/07/18 Blood Culture - Preliminary, Resulted NO GROWTH AFTER 2 DAYS Medications Current Medications Furosemide (Lasix) 40 mg 1X ONCE IVP Last administered on 03/10/18at 08:49; Start 03/10/18 at 09:00; Stop 03/10/18 at 09:01; Status DC Iohexol (Omnipaque 300 Mg/ml) 75 ml 1X ONCE IV ; Start 03/09/18 at 11:30; Stop 03/09/18 at 11:35; Status DC Linezolid/Dextrose 300 ml @ 300 mls/hr Q12H IV Last administered on 03/10/18at 05:37; Start 03/09/18 at 17:00 Micafungin Sodium 100 mg/Dextrose 100 ml @ 100 mls/hr Q24H IV Last administered on 03/09/18at 16:22; Start 03/09/18 at 16:00 Norepinephrine Bitartrate 250 ml @ 1.875 mls/ hr CONT PRN IV SEE I/O RECORD Last administered on 03/09/18at 16:18; Start 03/09/18 at 16:00 Perflutren Protein Type A Microsphe (Optison) 0.66 mg STK-MED ONCE IV ; Start at 10:23; Stop 03/10/18 at 10:25; Status DC Vitals/I & O Vital Sign - Last 24 Hours 03/09/18 03/09/18 03/09/18 03/09/18 11:48 12:00 12:00 13:00 Temp 99.7 99.7 Pulse 117 110 Resp 20 20 B/P (MAP) 103/67 (79) 143/85 (104) Pulse Ox 94 93 94 O2 Delivery Ventilator Ventilator Mechanical Ventilator Ventilator 03/09/18 03/09/18 03/09/18 03/09/18 14:00 14:01 15:00 15:34 Pulse 105 100 Resp 20 20 B/P (MAP) 120/76 (91) 152/88 (109) Pulse Ox 95 95 99 96 O2 Delivery Ventilator Ventilator Ventilator Ventilator 03/09/18 03/09/18 03/09/18 03/09/18 16:00 16:57 17:07 18:00 Temp 99.5 99.5 Pulse 100 95 95 Resp 20 20 20 B/P (MAP) 141/82 (101) 141/80 (100) 129/63 (85) Pulse Ox 95 95 93 O2 Delivery Ventilator Ventilator Ventilator Ventilator 03/09/18 03/09/18 03/09/18 03/09/18 19:00 19:29 20:00 20:00 Temp 99.3 99.3 Pulse 96 100 Resp 20 20 B/P (MAP) 98/63 (75) 116/63 (80) Pulse Ox 93 93 94 O2 Delivery Ventilator Ventilator Ventilator Mechanical Ventilator 03/09/18 03/09/18 03/09/18 03/09/18 20:00 21:00 21:30 22:00 Pulse 100 91 101 Resp 20 20 B/P (MAP) 114/77 (89) 146/63 (90) 110/63 (79) Pulse Ox 92 93 95 O2 Delivery Ventilator Ventilator Ventilator 03/09/18 03/09/18 03/10/18 03/10/18 23:00 23:50 00:00 00:00 Pulse 89 90 Resp 20 B/P (MAP) 109/63 (78) 110/20 (50) Pulse Ox 95 93 O2 Delivery Ventilator Ventilator Mechanical Ventilator 03/10/18 03/10/18 03/10/18 03/10/18 00:00 01:00 01:47 01:56 Temp 99.1 99.1 Pulse 90 90 Resp 20 20 B/P (MAP) 110/60 (77) 108/61 (77) Pulse Ox 95 97 93 93 O2 Delivery Ventilator Ventilator Ventilator O2 Flow Rate 2.0 03/10/18 03/10/18 03/10/18 03/10/18 02:00 02:26 03:00 03:09 Pulse 91 89 Resp 20 20 20 B/P (MAP) 106/61 (76) 111/65 (80) Pulse Ox 97 95 96 96 O2 Delivery Ventilator Ventilator Ventilator Ventilator 03/10/18 03/10/18 03/10/18 03/10/18 04:00 04:00 04:00 05:00 Temp 99.0 99.0 Pulse 92 92 89 Resp 20 20 B/P (MAP) 131/71 (91) 121/77 (92) Pulse Ox 94 95 O2 Delivery Ventilator Mechanical Ventilator Ventilator 03/10/18 03/10/18 03/10/18 03/10/18 05:50 06:00 07:00 08:00 Temp 99.2 99.2 Pulse 93 95 97 Resp 20 21 22 B/P (MAP) 133/82 (99) 152/82 (105) 120/71 (87) Pulse Ox 94 93 99 89 O2 Delivery Ventilator Ventilator Ventilator Ventilator 03/10/18 03/10/18 03/10/18 03/10/18 08:00 08:00 08:17 09:00 Pulse 92 95 Resp 22 B/P (MAP) 116/72 (87) Pulse Ox 88 90 O2 Delivery Mechanical Ventilator Ventilator Ventilator 03/10/18 03/10/18 03/10/18 10:00 11:00 11:08 Pulse 97 99 Resp 22 22 22 B/P (MAP) 139/66 (90) 119/68 (85) Pulse Ox 95 93 95 O2 Delivery Ventilator Ventilator Intake and Output 03/09/18 03/09/18 03/10/18 15:00 23:00 07:00 Intake Total 50 ml 4412.54 ml 3903.2 ml Output Total 325 ml 1040 ml 665 ml Balance -275 ml 3372.54 ml 3238.2 ml SARAH AVILA MD Mar 10, 2018 11:25
--- NOTE | 2018-03-10 14:34 | CONS ---
DATE OF CONSULTATION: 03/09/2018 REFERRING PHYSICIAN: Dr. Gruber. REASON FOR CONSULTATION: Septic shock. HISTORY OF PRESENT ILLNESS: This patient is a 37-year-old male with a history of hypertension who presented to the ER on 03/07/2018 with complaints of a 2-day history of left lower quadrant abdominal pain, diarrhea associated with fever and chills. He was tachycardic and hypertensive with elevated white blood cell count of 14,700 and a lactic acid of 1.3. A CT abdomen/pelvis scan showed acute diverticulitis involving the proximal sigmoid colon with small amount of adjacent free fluid and a focus of free air within the left lower quadrant. No drainable abscess seen. He was evaluated by Dr. Morse, general surgeon, and put on bowel rest. He was dosed with Flagyl and Cipro. During the infusion of the Cipro, he apparently developed hives on his right arm where the peripheral IV was located. The Cipro was then changed to Zosyn. According to his , he had been feeling better and was hoping to be discharged home soon. His blood cultures remained negative and his white blood cell count was stable. This morning, however, he was found unresponsive, cyanotic with agonal breathing. He underwent chest compressions and defibrillation. He is now intubated, sedated, unable to provide additional history of present illness, past medical history or review of systems. He was hypotensive requiring 30 mcg of Levophed. His WBC count romario to 19,000. A repeat CT abdomen/pelvis has been ordered when he is more stable. No fevers reported. His says he was hospitalized about 2 weeks ago at [facility] for flu-like symptoms. He had not been feeling well, was fatigued and slept a lot. He complained of reflux. He was told he had a fatty liver. He followed up with Gastroenterology and underwent an EGD. He reportedly was found to have esophageal ulcerations and was prescribed omeprazole. She said he started to feel better. He quit smoking and cut down on his drinking and tried to lose weight. A month earlier they had traveled to [place]. They spent 5-6 days there and enjoyed their time. The patient has no history of previous episodes of diverticulitis, abdominal surgery or recent antibiotic use. PAST MEDICAL HISTORY: Hypertension, gastroesophageal reflux disease, obesity, fatty liver, prediabetes. PAST SURGICAL HISTORY: Left foot surgery without hardware. FAMILY HISTORY: Unknown. SOCIAL HISTORY: He is . 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 Recently quit smoking. History of alcohol dependence as well as cocaine and marijuana use. ALLERGIES: CIPRO. MEDICATIONS: Metronidazole, Zosyn. Other medications are available and have been reviewed on the MAR. REVIEW OF SYSTEMS: Unobtainable as the patient is intubated and sedated. PHYSICAL EXAMINATION: GENERAL: The patient is intubated and sedated. VITAL SIGNS: Temperature is 99.8, blood pressure 114/54, heart rate 130, respiratory rate 23, pulse oximetry 94% on 90% FiO2 via ventilator. BMI 41.5. HEENT: Normal conjunctivae. He has ETT and OGT in place. LUNGS: Clear to auscultation. HEART: S1 and S2. ABDOMEN: Obese. Bowel sounds active. Soft. No grimace or guarding to palpation. GENITOURINARY: Indwelling Galvan in place. EXTREMITIES: No gross edema or cyanosis. SKIN: Warm without generalized rash. NEUROLOGIC: Unresponsive/sedated. LINES: Right femoral lines without signs of complications. LABORATORY DATA: Today's WBC 19.1, hemoglobin 13.9, platelet count 282,000, segs 78%, bands 8%, lymphocytes 7%. Sodium 134, potassium 4.6, creatinine 1.8 from 1.0 on admission, BUN 20, glucose 239. Recent lactic acid 1.3. AST 61 from 49, ALT 90 from 141, creatinine kinase 40, troponin 0.077, albumin 2.5. Urinalysis from 03/07/2018 unremarkable for infection. Blood cultures from 03/07/2018 negative to date. Urine toxicology from 03/07/2018 and 03/09/2018 showed cocaine and cannabinoids along with opiates and benzodiazepine on the 4th. Abdominal/pelvis CT per HPI. Chest x-ray showed mild linear airspace opacities identified in the right lung base, left upper lobe likely atelectasis or infiltrate. IMPRESSION: 1. Status post code blue. 2. Sepsis with hypotension requiring vasopressor support. 3. Leukocytosis. 4. Acute diverticulitis with microperforation. 5. ALLERGY TO CIPRO CAUSING HIVES. 6. Acute kidney injury. 7. Acute respiratory failure. 8. Substance abuse. 9. Peptic ulcer disease/gastroesophageal reflux disease. 10. Alcohol dependence. 11. Morbid obesity with a body mass index of 41. PLAN: Continue Zosyn and add micafungin and Zyvox. We will discontinue the Flagyl. Repeat blood cultures. Continue to monitor laboratory values and vital signs. Await repeat CT abdomen/pelvis when stable. General Surgery is following. Discussed with family. Thank you, Dr. Gruber, for asking us to participate in this patient's care. Should you have further questions or concerns, please call. The patient seen and examined and plan of care implemented by Dr. Richie Howard. RICHIE HOWARD MD DR: FELIPE/arnold JOB#: [id number] / [id number]
--- NOTE | 2018-03-10 14:43 | RAD ---
Examination: Bilateral Lower Extremity Venous Doppler Ultrasound History: Postop, code blue Comparison: None Procedure: Hobbs scale, color flow 2D and spectal waveform analysis images are obtained with and without compression in the area of the common femoral vein, superficial femoral vein - femoral vein junction, main femoral vein (superficial femoral vein) and popliteal vein. Veins of the proximal calf are also imaged. Findings: Limited evaluation of the right common femoral vein in the proximal right femoral vein could not be scanned due to dressing. There is normal duplex flow, color flow and compressibility of all visualized vein segments. No evidence of deep venous thrombus is present. Impression: No evidence of DVT in the visualized bilateral lower extremity venous system. The right common femoral vein and the right proximal femoral vein could not be scanned due to dressing. Electronically signed by: Wilber German MD (03/10/2018 2:39 PM) [facility]
[2018-03-10] MEDS: MICAFUNGIN 100 MG in IV DEXTROSE 5% 100ML 100 ML IV SCH (16:27)
--- NOTE | 2018-03-10 19:41 | CARD ---
MR#: [id number] Date of Study: 03/10/2018 Ordering Physician: SARAH ANG, Referring Physician: Alex BRISCOE: TRENT Mancia APPROVED REPORT EXAM: Two-dimensional and M-mode echocardiogram with Doppler, color Doppler with contrast. Other Information Quality : AverageHR: 98bpm Technically limited study due to body habitus, supine, and on vent. INDICATION cardiac arrest Echo Enhancing Agent Indication: Endocardial border delineation Agent/Amount Used: Optison 3mL 2D DIMENSIONS RVDd3.8 (2.9-3.5cm)Left Atrium(2D)3.2 (1.6-4.0cm) IVSd1.5 (0.7-1.1cm)Aortic Root(2D)3.0 (2.0-3.7cm) LVDd4.9 (3.9-5.9cm)LVOT Diameter2.2 (1.8-2.4cm) PWd1.2 (0.7-1.1cm)IVSs2.0 (0.8-1.2cm) LVDs3.3 (2.5-4.0cm)FS (%) 34.1 % PWs1.9 (0.8-1.2cm)SV72.5 ml Aortic Valve AoV Peak Vincent.111.0cm/sAoV VTI16.3cm AO Peak GR.4.9mmHgLVOT Peak Vincent.84.0cm/s LVOT VTI 12.65cmAO Mean GR.3mmHg MACEY (VMAX)1.27my5ZNF (VTI)2.86cm2 Mitral Valve MV E Bpswddxy51.9cm/sMV DECEL [id number] MV A Deidqdhd25.1cm/sMV PIU977gm E/A Ratio1.0MVA (PHT)1.74cm2 TDI E/Lateral E'8.7E/Medial E'6.7 Pulmonary Valve PV Peak Pyvjszlo59.6cm/sPV Peak Grad.4mmHg Tricuspid Valve TR P. [id number]/sRAP CBHKCCWI81bmPg TR Peak Gr.77jaRpIACS33rsQo LEFT VENTRICLE The left ventricle is normal size. There is mild to moderate concentric left ventricular hypertrophy. The left ventricular systolic function is moderately decreased. The ejection fraction is estimated a t 35%. The left ventricular diastolic function and filling is normal for age. RIGHT VENTRICLE The right ventricle is mildly dilated. The right ventricular systolic function is normal. ATRIA The left atrium size is normal. The right atrium size is normal. The interatrial septum is intact wit h no evidence for an atrial septal defect or patent foramen ovale as noted on 2-D or Doppler imaging. AORTIC VALVE The aortic valve is normal in structure and function. Doppler and Color Flow revealed no significant aortic regurgitation. There is no significant aortic valvular stenosis. There is no aortic valvular v egetation. MITRAL VALVE The mitral valve is normal in structure. There is no evidence of mitral valve prolapse. There is no m itral valve stenosis. Doppler and Color Flow revealed no mitral valve regurgitation noted. TRICUSPID VALVE The tricuspid valve leaflets are thickened , but open well. Doppler and Color Flow revealed trace to mild tricuspid regurgitation. There is mild pulmonary hypertension. The PA pressure was estimated at 31 mmHg. There is no tricuspid valve prolapse or vegetation. There is no tricuspid valve stenosis. PULMONIC VALVE The pulmonic valve is not well visualized. Doppler and Color Flow revealed trace pulmonic valvular re gurgitation. There is no pulmonic valvular stenosis. GREAT VESSELS The aortic root is normal in size. The IVC is dilated and collapses <50% with inspiration. PERICARDIAL EFFUSION There is no pleural effusion. There is no evidence of significant pericardial effusion. Critical Notification Critical Value: No <Conclusion> Technically difficult study. Optison echo contrast used. The left ventricular systolic function is moderately decreased. The ejection fraction is estimated at 35%. The right ventricle is mildly dilated. Trace to mild tricuspid regurgitation. The PA pressure was estimated at 31 mmHg. There is no evidence of significant pericardial effusion. Signed by : Sarah Ang, Electronically Approved : 03/10/2018 15:15:09
[2018-03-11] VITALS (23 sets, daily range): BP systolic 85–135; BP diastolic 51–79
[2018-03-11] MEDS: MIDAZOLAM 100mg/100ml NS BAG 100 ML IV PRN ×3 (03:55→21:43)
[2018-03-11] MEDS: AMINO AC 3%/ELECTROLYTE/GLYCER 1,000 ML IV SCH ×2 (03:55→07:47)
[2018-03-11 05:54] LABS: BASO % 0 % (0-3); EOS # 0.2 x10^3/uL (0.0-0.7); EOS % 2 % (0-3); HEMATOCRIT 33.9 % (39.0-53.0); HEMOGLOBIN 11.3 g/dL (13.0-17.5); LYMPH # 1.6 x10^3/uL (1.0-4.8); LYMPH % 17 % (24-48); MEAN CORPUSCULAR HEMOGLOBIN 30 pg (25-35); MEAN CORPUSCULAR HGB CONC 33 g/dL (31-37); MEAN CORPUSCULAR VOLUME 90 fL (79-100); MONO # 0.8 x10^3/uL (0.0-1.1); MONO % 9 % (0-9); NEUT # 6.5 x10^3uL (1.8-7.7); NEUT % 72 % (31-73); PLATELET COUNT 247 x10^3/uL (140-400); RED BLOOD COUNT 3.78 x10^6/uL (4.30-5.70); RED CELL DISTRIBUTION WIDTH 13.8 % (11.5-14.5); WHITE BLOOD COUNT 9.1 x10^3/uL (4.0-11.0)
[2018-03-11] MEDS: PIPERACILLIN/TAZOBACTAM 3.375 GM in IV NORMAL SALINE 50ML 50 ML IV SCH ×4 (06:15→23:56)
--- NOTE | 2018-03-11 06:33 | RAD ---
EXAM: CHEST 1 VIEW. HISTORY: Respiratory failure. COMPARISON: March 10, 2018. FINDINGS: A frontal view of the chest is obtained. There is rotation to the left. An endotracheal tube has its tip 3 cm above the santa. The inspiration is small. Bilateral hazy opacities are consistent with moderate pulmonary edema and appear mildly increased. There is no pneumothorax or clear pleural effusion. The heart is mildly enlarged. IMPRESSION: 1. Increased mild to moderate pulmonary edema. Electronically signed by: Jose Alberto Olguin MD (03/11/2018 6:30 AM) [facility]
[2018-03-11 06:41] LABS: CALCIUM 8.5 mg/dL (8.5-10.1); CREATININE 1.2 mg/dL (0.7-1.3); GFR 68.5; POTASSIUM 3.3 mmol/L (3.5-5.1)
[2018-03-11] MEDS: IV NORMAL SALINE 1000ML BAG 1,000 ML IV SCH ×3 (07:45→18:13)
[2018-03-11] MEDS: PANTOPRAZOLE IV PUSH 40 MG VIAL. IVP SCH (07:47)
[2018-03-11] MEDS: CHLORHEXIDINE 0.12% 15 ML MOUTHWASH. MM SCH ×2 (07:48→20:39)
[2018-03-11 08:52] LABS: BASE EXCESS ABG -1 mmol/L (-3-3); HCO3 ABG 22 mmol/L (21-28); PCO2 ABG 29 mmHg (35-46); PO2 ABG 75 mmHg (85-108); SAT O2 ABG 95 % (92-99)
[2018-03-11 08:55] LABS: FIO2 ABG 60
[2018-03-11] MEDS ORDERED: CONTRAST GIVEN. MC PRN (09:00)
[2018-03-11] MEDS ORDERED: IOHEXOL 300 MG/ML 100ML VIAL. IV ONE (09:00)
[2018-03-11] MEDS ORDERED: DEXTROSE 50% 25 GM / 50ML DISP.SYRIN. IV PRN (09:15)
[2018-03-11] MEDS ORDERED: ANTI-COAG MONITOR BY PHARMACY. MC PRN (09:30)
--- NOTE | 2018-03-11 09:55 | PDOC ---
JANUSZ SMITH SEARCH AND RESCUE OFFICER 03/11/18 0955: SURGICAL PROGRESS NOTE Subjective family present off pressors mech vent CT to be done today low grade fevers Vital Signs Vital Signs Date Time Temp Pulse Resp B/P (MAP) Pulse Ox O2 Delivery O2 Flow Rate FiO2 03/11/18 09:00 90 18 111/65 (80) 97 Ventilator 03/11/18 07:00 100.4 100.4 I&O Intake and Output 03/11/18 07:00 Intake Total 3420 ml Output Total 4585 ml Balance -1165 ml Intake Oral 0 ml IV Total 3420 ml Output Urine Total 4585 ml PATIENT HAS A ZELAYA: Yes General: No acute distress, Other (sedated ) Abdomen: Soft, Other (ND) Labs Laboratory Tests Test 03/09/18 11:00 03/09/18 13:05 03/10/18 04:20 03/10/18 09:45 Nasal Screen MRSA (PCR) Negative (Negative) O2 Saturation 96 % (92-99) 93 % (92-99) Arterial Blood pH 7.34 (7.35-7.45) 7.46 (7.35-7.45) Arterial Blood pCO2 at Patient Temp 40 mmHg (35-46) 36 mmHg (35-46) Arterial Blood pO2 at Patient Temp 83 mmHg (85-108) 63 mmHg (85-108) Arterial Blood HCO3 21 mmol/L (21-28) 25 mmol/L (21-28) Arterial Blood Base Excess -5 mmol/L (-3-3) 1 mmol/L (-3-3) FiO2 90 80 White Blood Count 10.3 x10^3/uL (4.0-11.0) Red Blood Count 3.81 x10^6/uL (4.30-5.70) Hemoglobin 11.6 g/dL (13.0-17.5) Hematocrit 34.3 % (39.0-53.0) Mean Corpuscular Volume 90 fL (79-100) Mean Corpuscular Hemoglobin 30 pg (25-35) Mean Corpuscular Hemoglobin Concent 34 g/dL (31-37) Red Cell Distribution Width 13.3 % (11.5-14.5) Platelet Count 231 x10^3/uL (140-400) Neutrophils (%) (Auto) 79 % (31-73) Lymphocytes (%) (Auto) 13 % (24-48) Monocytes (%) (Auto) 8 % (0-9) Eosinophils (%) (Auto) 0 % (0-3) Basophils (%) (Auto) 1 % (0-3) Neutrophils # (Auto) 8.1 x10^3uL (1.8-7.7) Lymphocytes # (Auto) 1.3 x10^3/uL (1.0-4.8) Monocytes # (Auto) 0.8 x10^3/uL (0.0-1.1) Eosinophils # (Auto) 0.0 x10^3/uL (0.0-0.7) Basophils # (Auto) 0.0 x10^3/uL (0.0-0.2) Sodium Level 141 mmol/L (136-145) Potassium Level 3.8 mmol/L (3.5-5.1) Chloride Level 108 mmol/L (98-107) Carbon Dioxide Level 26 mmol/L (21-32) Anion Gap 7 (6-14) Blood Urea Nitrogen 19 mg/dL (8-26) Creatinine 1.3 mg/dL (0.7-1.3) Estimated GFR (Cockcroft-Gault) 62.5 BUN/Creatinine Ratio 15 (6-20) Glucose Level 139 mg/dL (70-99) Calcium Level 8.4 mg/dL (8.5-10.1) Total Bilirubin 0.5 mg/dL (0.2-1.0) Aspartate Amino Transf (AST/SGOT) 39 U/L (15-37) Alanine Aminotransferase (ALT/SGPT) 64 U/L (16-63) Alkaline Phosphatase 57 U/L (46-116) Total Protein 6.3 g/dL (6.4-8.2) Albumin 1.9 g/dL (3.4-5.0) Albumin/Globulin Ratio 0.4 (1.0-1.7) Test 03/11/18 05:30 03/11/18 08:45 03/11/18 08:55 White Blood Count 9.1 x10^3/uL (4.0-11.0) Red Blood Count 3.78 x10^6/uL (4.30-5.70) Hemoglobin 11.3 g/dL (13.0-17.5) Hematocrit 33.9 % (39.0-53.0) Mean Corpuscular Volume 90 fL (79-100) Mean Corpuscular Hemoglobin 30 pg (25-35) Mean Corpuscular Hemoglobin Concent 33 g/dL (31-37) Red Cell Distribution Width 13.8 % (11.5-14.5) Platelet Count 247 x10^3/uL (140-400) Neutrophils (%) (Auto) 72 % (31-73) Lymphocytes (%) (Auto) 17 % (24-48) Monocytes (%) (Auto) 9 % (0-9) Eosinophils (%) (Auto) 2 % (0-3) Basophils (%) (Auto) 0 % (0-3) Neutrophils # (Auto) 6.5 x10^3uL (1.8-7.7) Lymphocytes # (Auto) 1.6 x10^3/uL (1.0-4.8) Monocytes # (Auto) 0.8 x10^3/uL (0.0-1.1) Eosinophils # (Auto) 0.2 x10^3/uL (0.0-0.7) Basophils # (Auto) 0.0 x10^3/uL (0.0-0.2) Sodium Level 140 mmol/L (136-145) Potassium Level 3.3 mmol/L (3.5-5.1) Chloride Level 104 mmol/L (98-107) Carbon Dioxide Level 27 mmol/L (21-32) Anion Gap 9 (6-14) Blood Urea Nitrogen 19 mg/dL (8-26) Creatinine 1.2 mg/dL (0.7-1.3) Estimated GFR (Cockcroft-Gault) 68.5 Glucose Level 118 mg/dL (70-99) Calcium Level 8.5 mg/dL (8.5-10.1) Troponin I Quantitative 0.039 ng/mL (0.000-0.055) O2 Saturation 95 % (92-99) Arterial Blood pH 7.49 (7.35-7.45) Arterial Blood pCO2 at Patient Temp 29 mmHg (35-46) Arterial Blood pO2 at Patient Temp 75 mmHg (85-108) Arterial Blood HCO3 22 mmol/L (21-28) Arterial Blood Base Excess -1 mmol/L (-3-3) FiO2 60 Glucose (Fingerstick) 115 mg/dL (70-99) Laboratory Tests Test 03/11/18 05:30 03/11/18 08:45 03/11/18 08:55 White Blood Count 9.1 x10^3/uL (4.0-11.0) Red Blood Count 3.78 x10^6/uL (4.30-5.70) Hemoglobin 11.3 g/dL (13.0-17.5) Hematocrit 33.9 % (39.0-53.0) Mean Corpuscular Volume 90 fL (79-100) Mean Corpuscular Hemoglobin 30 pg (25-35) Mean Corpuscular Hemoglobin Concent 33 g/dL (31-37) Red Cell Distribution Width 13.8 % (11.5-14.5) Platelet Count 247 x10^3/uL (140-400) Neutrophils (%) (Auto) 72 % (31-73) Lymphocytes (%) (Auto) 17 % (24-48) Monocytes (%) (Auto) 9 % (0-9) Eosinophils (%) (Auto) 2 % (0-3) Basophils (%) (Auto) 0 % (0-3) Neutrophils # (Auto) 6.5 x10^3uL (1.8-7.7) Lymphocytes # (Auto) 1.6 x10^3/uL (1.0-4.8) Monocytes # (Auto) 0.8 x10^3/uL (0.0-1.1) Eosinophils # (Auto) 0.2 x10^3/uL (0.0-0.7) Basophils # (Auto) 0.0 x10^3/uL (0.0-0.2) Sodium Level 140 mmol/L (136-145) Potassium Level 3.3 mmol/L (3.5-5.1) Chloride Level 104 mmol/L (98-107) Carbon Dioxide Level 27 mmol/L (21-32) Anion Gap 9 (6-14) Blood Urea Nitrogen 19 mg/dL (8-26) Creatinine 1.2 mg/dL (0.7-1.3) Estimated GFR (Cockcroft-Gault) 68.5 Glucose Level 118 mg/dL (70-99) Calcium Level 8.5 mg/dL (8.5-10.1) Troponin I Quantitative 0.039 ng/mL (0.000-0.055) O2 Saturation 95 % (92-99) Arterial Blood pH 7.49 (7.35-7.45) Arterial Blood pCO2 at Patient Temp 29 mmHg (35-46) Arterial Blood pO2 at Patient Temp 75 mmHg (85-108) Arterial Blood HCO3 22 mmol/L (21-28) Arterial Blood Base Excess -1 mmol/L (-3-3) FiO2 60 Glucose (Fingerstick) 115 mg/dL (70-99) Problem List Problems Medical Problems: (1) Diverticulitis of colon with perforation Status: Acute Assessment/Plan diverticulitis, micro perf code blue, acute resp failure, mech vent plans for repeat CT today EVAN MCGHEE MD 03/11/18 1206: SURGICAL PROGRESS NOTE Assessment/Plan Pt seen and examined today; on vent, responsive, denies pain; abdomen soft, no guarding with palpation; CT reviewed, some pericolonic inflammatory change , with small area of fluid; agree with report that may be developing abscess, but doesn't appear suitable for drainage; continue abx, FU CT scan in 3-4 days ; discussed with family SARAHJANUSZ SIGRID Mar 11, 2018 09:55 EVAN MCGHEE MD Mar 11, 2018 12:06
[2018-03-11] MEDS ORDERED: POTASSIUM CHLORIDE 20MEQ 50 ML IV ONE (10:00)
--- NOTE | 2018-03-11 11:10 | RAD ---
CT head without intravenous contrast History: Unresponsive, intubated, CODE BLUE. Comparison: None. Technique: Axial images are obtained of the head from the skull base through the vertex without IV contrast. Exposure: One or more of the following individualized dose reduction techniques were utilized for this examination: 1. Automated exposure control 2. Adjustment of the mA and/or kV according to patient size 3. Use of iterative reconstruction technique Findings: The ventricles are appropriate in size, shape, and location for the patient's age. No obvious intracranial mass, mass-effect, midline shift, hemorrhage or obvious acute infarction is identified. Basilar cisterns are patent. Bone windows demonstrate no acute calvarial abnormality. Mild-moderate paranasal sinus disease is seen.. Impression: No acute intracranial process. Please note that CT can be relatively insensitive to acute ischemia for up to [address] cervical spine Comparison: None. Technique: Noncontrast CT of the cervical spine was performed using helical technique. Axial, sagittal, coronal reconstructions were obtained. Exposure: One or more of the following individualized dose reduction techniques were utilized for this examination: 1. Automated exposure control 2. Adjustment of the mA and/or kV according to patient size 3. Use of iterative reconstruction technique Findings: There is motion artifact at many levels which could obscure significant abnormalities There is no evidence of acute fracture or acute malalignment involving the cervical spine. No prevertebral soft tissue swelling is identified. Endotracheal and orogastric tubes are seen. Impression: 1. Limited by motion. 2. No evidence of acute traumatic injury involving the cervical spine. Electronically signed by: Hector Ro MD (03/11/2018 11:07 AM) [place] [id number]
--- NOTE | 2018-03-11 11:25 | RAD ---
PQRS Compliance Statement: One or more of the following individualized dose reduction techniques were utilized for this examination: 1. Automated exposure control 2. Adjustment of the mA and/or kV according to patient size 3. Use of iterative reconstruction technique CT ANGIOGRAPHY CHEST, CT ABD PELV W/ IV CONTRST ONLY Clinical Indication: FOUND DOWN UNRESPONSIVE, INTUBATED. DIVERTICULITIS, S/P CODE BLUE Comparison: CT abdomen and pelvis with contrast, March 07, 2018. CT chest with contrast, CT PE February 08, 2015. TECHNIQUE: Helical CT imaging of the chest abdomen and pelvis is performed after 100 cc of Omnipaque [address] pulmonary angiogram protocol of the chest is utilized, coronal 3-D MIP reconstruction of the pulmonary arteries. Findings: There is outside of [id number] artifact that degrades image quality. The pulmonary arteries are not well opacified. There is no large pulmonary embolus in the main pulmonary arteries. More distal branches cannot be evaluated. There is endotracheal tube in appropriate position. There is enteric tube, tip in the stomach. There is severe right gynecomastia. There are large calcified AP window and left paratracheal lymph nodes. There is no adenopathy in the chest. Great vessels normal caliber. Cardiac size normal, no pericardial effusion. There is respiratory motion artifact in the lungs, degrading image quality. There are moderate consolidations with air bronchograms in the bilateral lower lobes. Calcified granuloma left upper lobe. No pleural abnormality. Motion artifact moderately degrades image quality in the abdomen. A subtle finding could be obscured. Hyperdensity in the gallbladder may be sludge or vicarious excretion of IV contrast. Mild fatty infiltration of the liver. Spleen, pancreas, adrenal glands, abdominal aorta, and kidneys are normal. There are multiple subcentimeter retroperitoneal lymph nodes. Stomach unremarkable. No dilated small bowel. There is right femoral central line, tip is in the right external iliac vein. There is small bilateral fat-containing inguinal hernias. There is a Galvan catheter in the bladder. Bladder is decompressed. There is perivesical induration. Small amount of air is seen in the bladder. There is no dilated small bowel. The appendix is normal caliber. Diverticulosis of the sigmoid colon. There is induration and a small amount of fluid adjacent to the sigmoid colon. Fluid measures 2.4 x 2 cm, image 88. Bubble of air is no longer seen. Fluid may be a developing abscess. Fluid not currently amenable to percutaneous drainage. There is mild pelvic free fluid. No acute bone abnormality. IMPRESSION: 1. Life support devices in appropriate position. 2. No large central pulmonary embolus. Lobar, segmental, subsegmental pulmonary arteries cannot be evaluated due to limited contrast opacification. 3. Moderate consolidations with air bronchograms in the bilateral lower lobes. Considerations include aspiration, pneumonia, or atelectasis. 4. Persistent diverticulitis of the sigmoid colon. There is a small incompletely formed probable peridiverticular abscess. 5. Fatty infiltration of the liver. Electronically signed by: Akbar Naqvi MD (03/11/2018 11:21 AM) [id number]
[2018-03-11] MEDS: INSULIN LISPRO 300 UNITS/3 ML INSULN.PEN. SQ SCH ×2 (11:28→17:00)
[2018-03-11 11:32] LABS: MAGNESIUM 1.6 mg/dL (1.8-2.4)
--- NOTE | 2018-03-11 12:42 | PDOC ---
PULMONARY PROGRESS NOTES Subjective PT SEDATED OFF PRESSORS SLOWLY IMPROVING OXYGENATION DOWN TO 55% FIO2/ 8 PEEP Vitals Vital Signs Date Time Temp Pulse Resp B/P (MAP) Pulse Ox O2 Delivery O2 Flow Rate FiO2 03/11/18 12:00 Mechanical Ventilator 2.0 03/11/18 12:00 95 25 85/54 (64) 95 03/11/18 11:00 99.8 99.8 Lungs: Other (decrease bs) Cardiovascular: S1, S2 Abdomen: Soft Extremities: Other (EDEMA) Skin: Warm Labs Laboratory Tests Test 03/09/18 13:05 03/10/18 04:20 03/10/18 09:45 03/11/18 05:30 O2 Saturation 96 % (92-99) 93 % (92-99) Arterial Blood pH 7.34 (7.35-7.45) 7.46 (7.35-7.45) Arterial Blood pCO2 at Patient Temp 40 mmHg (35-46) 36 mmHg (35-46) Arterial Blood pO2 at Patient Temp 83 mmHg (85-108) 63 mmHg (85-108) Arterial Blood HCO3 21 mmol/L (21-28) 25 mmol/L (21-28) Arterial Blood Base Excess -5 mmol/L (-3-3) 1 mmol/L (-3-3) FiO2 90 80 White Blood Count 10.3 x10^3/uL (4.0-11.0) 9.1 x10^3/uL (4.0-11.0) Red Blood Count 3.81 x10^6/uL (4.30-5.70) 3.78 x10^6/uL (4.30-5.70) Hemoglobin 11.6 g/dL (13.0-17.5) 11.3 g/dL (13.0-17.5) Hematocrit 34.3 % (39.0-53.0) 33.9 % (39.0-53.0) Mean Corpuscular Volume 90 fL (79-100) 90 fL (79-100) Mean Corpuscular Hemoglobin 30 pg (25-35) 30 pg (25-35) Mean Corpuscular Hemoglobin Concent 34 g/dL (31-37) 33 g/dL (31-37) Red Cell Distribution Width 13.3 % (11.5-14.5) 13.8 % (11.5-14.5) Platelet Count 231 x10^3/uL (140-400) 247 x10^3/uL (140-400) Neutrophils (%) (Auto) 79 % (31-73) 72 % (31-73) Lymphocytes (%) (Auto) 13 % (24-48) 17 % (24-48) Monocytes (%) (Auto) 8 % (0-9) 9 % (0-9) Eosinophils (%) (Auto) 0 % (0-3) 2 % (0-3) Basophils (%) (Auto) 1 % (0-3) 0 % (0-3) Neutrophils # (Auto) 8.1 x10^3uL (1.8-7.7) 6.5 x10^3uL (1.8-7.7) Lymphocytes # (Auto) 1.3 x10^3/uL (1.0-4.8) 1.6 x10^3/uL (1.0-4.8) Monocytes # (Auto) 0.8 x10^3/uL (0.0-1.1) 0.8 x10^3/uL (0.0-1.1) Eosinophils # (Auto) 0.0 x10^3/uL (0.0-0.7) 0.2 x10^3/uL (0.0-0.7) Basophils # (Auto) 0.0 x10^3/uL (0.0-0.2) 0.0 x10^3/uL (0.0-0.2) Sodium Level 141 mmol/L (136-145) 140 mmol/L (136-145) Potassium Level 3.8 mmol/L (3.5-5.1) 3.3 mmol/L (3.5-5.1) Chloride Level 108 mmol/L (98-107) 104 mmol/L (98-107) Carbon Dioxide Level 26 mmol/L (21-32) 27 mmol/L (21-32) Anion Gap 7 (6-14) 9 (6-14) Blood Urea Nitrogen 19 mg/dL (8-26) 19 mg/dL (8-26) Creatinine 1.3 mg/dL (0.7-1.3) 1.2 mg/dL (0.7-1.3) Estimated GFR (Cockcroft-Gault) 62.5 68.5 BUN/Creatinine Ratio 15 (6-20) Glucose Level 139 mg/dL (70-99) 118 mg/dL (70-99) Calcium Level 8.4 mg/dL (8.5-10.1) 8.5 mg/dL (8.5-10.1) Total Bilirubin 0.5 mg/dL (0.2-1.0) Aspartate Amino Transf (AST/SGOT) 39 U/L (15-37) Alanine Aminotransferase (ALT/SGPT) 64 U/L (16-63) Alkaline Phosphatase 57 U/L (46-116) Total Protein 6.3 g/dL (6.4-8.2) Albumin 1.9 g/dL (3.4-5.0) Albumin/Globulin Ratio 0.4 (1.0-1.7) Phosphorus Level 2.0 mg/dL (2.6-4.7) Magnesium Level 1.6 mg/dL (1.8-2.4) Troponin I Quantitative 0.039 ng/mL (0.000-0.055) Test 03/11/18 08:45 03/11/18 08:55 O2 Saturation 95 % (92-99) Arterial Blood pH 7.49 (7.35-7.45) Arterial Blood pCO2 at Patient Temp 29 mmHg (35-46) Arterial Blood pO2 at Patient Temp 75 mmHg (85-108) Arterial Blood HCO3 22 mmol/L (21-28) Arterial Blood Base Excess -1 mmol/L (-3-3) FiO2 60 Glucose (Fingerstick) 115 mg/dL (70-99) Laboratory Tests Test 03/11/18 05:30 03/11/18 08:45 03/11/18 08:55 White Blood Count 9.1 x10^3/uL (4.0-11.0) Red Blood Count 3.78 x10^6/uL (4.30-5.70) Hemoglobin 11.3 g/dL (13.0-17.5) Hematocrit 33.9 % (39.0-53.0) Mean Corpuscular Volume 90 fL (79-100) Mean Corpuscular Hemoglobin 30 pg (25-35) Mean Corpuscular Hemoglobin Concent 33 g/dL (31-37) Red Cell Distribution Width 13.8 % (11.5-14.5) Platelet Count 247 x10^3/uL (140-400) Neutrophils (%) (Auto) 72 % (31-73) Lymphocytes (%) (Auto) 17 % (24-48) Monocytes (%) (Auto) 9 % (0-9) Eosinophils (%) (Auto) 2 % (0-3) Basophils (%) (Auto) 0 % (0-3) Neutrophils # (Auto) 6.5 x10^3uL (1.8-7.7) Lymphocytes # (Auto) 1.6 x10^3/uL (1.0-4.8) Monocytes # (Auto) 0.8 x10^3/uL (0.0-1.1) Eosinophils # (Auto) 0.2 x10^3/uL (0.0-0.7) Basophils # (Auto) 0.0 x10^3/uL (0.0-0.2) Sodium Level 140 mmol/L (136-145) Potassium Level 3.3 mmol/L (3.5-5.1) Chloride Level 104 mmol/L (98-107) Carbon Dioxide Level 27 mmol/L (21-32) Anion Gap 9 (6-14) Blood Urea Nitrogen 19 mg/dL (8-26) Creatinine 1.2 mg/dL (0.7-1.3) Estimated GFR (Cockcroft-Gault) 68.5 Glucose Level 118 mg/dL (70-99) Calcium Level 8.5 mg/dL (8.5-10.1) Phosphorus Level 2.0 mg/dL (2.6-4.7) Magnesium Level 1.6 mg/dL (1.8-2.4) Troponin I Quantitative 0.039 ng/mL (0.000-0.055) O2 Saturation 95 % (92-99) Arterial Blood pH 7.49 (7.35-7.45) Arterial Blood pCO2 at Patient Temp 29 mmHg (35-46) Arterial Blood pO2 at Patient Temp 75 mmHg (85-108) Arterial Blood HCO3 22 mmol/L (21-28) Arterial Blood Base Excess -1 mmol/L (-3-3) FiO2 60 Glucose (Fingerstick) 115 mg/dL (70-99) Comments CTA CHEST REVIEWED 1. Life support devices in appropriate position. 2. No large central pulmonary embolus. Lobar, segmental, subsegmental pulmonary arteries cannot be evaluated due to limited contrast opacification. 3. Moderate consolidations with air bronchograms in the bilateral lower lobes. Considerations include aspiration, pneumonia, or atelectasis. 4. Persistent diverticulitis of the sigmoid colon. There is a small incompletely formed probable peridiverticular abscess. 5. Fatty infiltration of the liver. Electronically signed by: Akbar Naqvi MD (03/11/2018 11:21 AM) [id number] Impression . IMPRESSION: 1. Acute respiratory failure, status post code blue. Etiology likely ALI/EARLY ARDS due to diverticulitis 2. Status post code blue patient with spontaneous return of circulation after one defibrillation and 2 minutes of chest compressions. 3. Septic shock.off pressor 4. Diverticulitis leading to septic shock. suspected abscess 5. Metabolic acidosis secondary to code blue, increased work of breathing and renal insufficiency. 6. Morbid obesity. 7. Leukocytosis. 8. Obstructive sleep apnea. 9. Possible aspiration pneumonia. 10. No central PE by CTA, basal atelectasis/ consolidation Plan . D/W WIF EIN DETAIL SLOWLY IMPROVING OXYGENATION CHANGE LOVENOX TO DVT PROPHYLAXIS DOSE NO SHUNT ON ECHO NEG VENOUS DOPPLER ANTIBX PER ID MAY NEED ABDOMINAL DRAIN START TPN GI PROPH D/W RN CCT 30 MIN LOY TIJERINA MD Mar 11, 2018 12:42
--- NOTE | 2018-03-11 12:57 | PDOC ---
Infectious Disease Note Subjective Subjective Vital Sign Vital Signs Vital Signs Date Time Temp Pulse Resp B/P (MAP) Pulse Ox O2 Delivery O2 Flow Rate FiO2 03/11/18 12:00 Mechanical Ventilator 2.0 03/11/18 12:00 95 25 85/54 (64) 95 03/11/18 11:00 99.8 99.8 Labs Lab Laboratory Tests Test 03/11/18 05:30 03/11/18 08:45 03/11/18 08:55 White Blood Count 9.1 x10^3/uL (4.0-11.0) Red Blood Count 3.78 x10^6/uL (4.30-5.70) Hemoglobin 11.3 g/dL (13.0-17.5) Hematocrit 33.9 % (39.0-53.0) Mean Corpuscular Volume 90 fL (79-100) Mean Corpuscular Hemoglobin 30 pg (25-35) Mean Corpuscular Hemoglobin Concent 33 g/dL (31-37) Red Cell Distribution Width 13.8 % (11.5-14.5) Platelet Count 247 x10^3/uL (140-400) Neutrophils (%) (Auto) 72 % (31-73) Lymphocytes (%) (Auto) 17 % (24-48) Monocytes (%) (Auto) 9 % (0-9) Eosinophils (%) (Auto) 2 % (0-3) Basophils (%) (Auto) 0 % (0-3) Neutrophils # (Auto) 6.5 x10^3uL (1.8-7.7) Lymphocytes # (Auto) 1.6 x10^3/uL (1.0-4.8) Monocytes # (Auto) 0.8 x10^3/uL (0.0-1.1) Eosinophils # (Auto) 0.2 x10^3/uL (0.0-0.7) Basophils # (Auto) 0.0 x10^3/uL (0.0-0.2) Sodium Level 140 mmol/L (136-145) Potassium Level 3.3 mmol/L (3.5-5.1) Chloride Level 104 mmol/L (98-107) Carbon Dioxide Level 27 mmol/L (21-32) Anion Gap 9 (6-14) Blood Urea Nitrogen 19 mg/dL (8-26) Creatinine 1.2 mg/dL (0.7-1.3) Estimated GFR (Cockcroft-Gault) 68.5 Glucose Level 118 mg/dL (70-99) Calcium Level 8.5 mg/dL (8.5-10.1) Phosphorus Level 2.0 mg/dL (2.6-4.7) Magnesium Level 1.6 mg/dL (1.8-2.4) Troponin I Quantitative 0.039 ng/mL (0.000-0.055) O2 Saturation 95 % (92-99) Arterial Blood pH 7.49 (7.35-7.45) Arterial Blood pCO2 at Patient Temp 29 mmHg (35-46) Arterial Blood pO2 at Patient Temp 75 mmHg (85-108) Arterial Blood HCO3 22 mmol/L (21-28) Arterial Blood Base Excess -1 mmol/L (-3-3) FiO2 60 Glucose (Fingerstick) 115 mg/dL (70-99) Micro Microbiology 03/09/18 Blood Culture - Preliminary, Resulted NO GROWTH AFTER 1 DAY Objective Assessment Unable to see as in CT earlier and now undergoing procedure. Chart reviewed off pressors now per Pulm note. Labs ordered for the morning Plan Plan of Care Continue Zyvox, Zosyn and micafungin Repeat BC from 03/09 pending Monitor labs/VSS D/w LAURA MORENO MD Mar 11, 2018 12:57
[2018-03-11] MEDS: TPN PER PHARMACY MC PRN (13:24)
--- NOTE | 2018-03-11 13:25 | PDOC ---
PROGRESS NOTES Chief Complaint Chief Complaint status post cardiac arrest, nonsustained V. tach, 2 minutes run of CPR, 03/09/18 acute resp failure with cardia arrest , possible aspiration -Diverticulitis of colon with perforation septic shock required pressors Fall in hospital -GERD -hypertension -overweight -foot surgery drug abuse with cocaine acute systolic CHF with EF 35% hypokalemia plan: fu pulm, card, sx, ID on micafungin, zyvox, zosyn repeated CTA, ABD CT, no PE, but showed cont diverticulitis with possible abscess 2.4cm, cannot be drained yet cont vent, hope taper o2 down then try to wean need IJ central line then change PPN to TPN NS change lovenox to dvt ppx gi ppx off pressors. replete K cc time 35min History of Present Illness History of Present Illness Admitted for perforation of the diverticulitis, first episode of diverticulitis. But about 6:15 AM Sunday, found on the ground, unresponsive, nonsustained V. tach, 2 minutes of CPR, with ROSC ICU, intubated, sedated, requiring high FIO2 settings (80-90%),. down to 55%, PEEP 8 Sedated C-collar on. Oliguric after 2 boluses of normal saline on stau, seems to be better now NEeded levophed sunday - but off pressors today sunday talked to at bedside for a long time, who is not happy that someone told her that pt had heart attack i printed out the echo result to her and explained some possibilities for the CHF Vitals Vitals Vital Signs Date Time Temp Pulse Resp B/P (MAP) Pulse Ox O2 Delivery O2 Flow Rate FiO2 03/11/18 12:00 Mechanical Ventilator 2.0 03/11/18 12:00 95 25 85/54 (64) 95 03/11/18 11:00 99.8 99.8 Physical Exam Physical Exam sedated, intubated, follow commands General: No acute distress, Other (sedated ) Heart: Regular rate, Normal S1, Normal S2 Lungs: Clear, Other (decrease bs) Abdomen: Soft, Other (ND) Extremities: No edema Skin: Other (warm, dry) Labs LABS Laboratory Tests Test 03/11/18 05:30 03/11/18 08:45 03/11/18 08:55 White Blood Count 9.1 x10^3/uL (4.0-11.0) Red Blood Count 3.78 x10^6/uL (4.30-5.70) Hemoglobin 11.3 g/dL (13.0-17.5) Hematocrit 33.9 % (39.0-53.0) Mean Corpuscular Volume 90 fL (79-100) Mean Corpuscular Hemoglobin 30 pg (25-35) Mean Corpuscular Hemoglobin Concent 33 g/dL (31-37) Red Cell Distribution Width 13.8 % (11.5-14.5) Platelet Count 247 x10^3/uL (140-400) Neutrophils (%) (Auto) 72 % (31-73) Lymphocytes (%) (Auto) 17 % (24-48) Monocytes (%) (Auto) 9 % (0-9) Eosinophils (%) (Auto) 2 % (0-3) Basophils (%) (Auto) 0 % (0-3) Neutrophils # (Auto) 6.5 x10^3uL (1.8-7.7) Lymphocytes # (Auto) 1.6 x10^3/uL (1.0-4.8) Monocytes # (Auto) 0.8 x10^3/uL (0.0-1.1) Eosinophils # (Auto) 0.2 x10^3/uL (0.0-0.7) Basophils # (Auto) 0.0 x10^3/uL (0.0-0.2) Sodium Level 140 mmol/L (136-145) Potassium Level 3.3 mmol/L (3.5-5.1) Chloride Level 104 mmol/L (98-107) Carbon Dioxide Level 27 mmol/L (21-32) Anion Gap 9 (6-14) Blood Urea Nitrogen 19 mg/dL (8-26) Creatinine 1.2 mg/dL (0.7-1.3) Estimated GFR (Cockcroft-Gault) 68.5 Glucose Level 118 mg/dL (70-99) Calcium Level 8.5 mg/dL (8.5-10.1) Phosphorus Level 2.0 mg/dL (2.6-4.7) Magnesium Level 1.6 mg/dL (1.8-2.4) Troponin I Quantitative 0.039 ng/mL (0.000-0.055) O2 Saturation 95 % (92-99) Arterial Blood pH 7.49 (7.35-7.45) Arterial Blood pCO2 at Patient Temp 29 mmHg (35-46) Arterial Blood pO2 at Patient Temp 75 mmHg (85-108) Arterial Blood HCO3 22 mmol/L (21-28) Arterial Blood Base Excess -1 mmol/L (-3-3) FiO2 60 Glucose (Fingerstick) 115 mg/dL (70-99) Assessment and Plan Assessmemt and Plan Problems Medical Problems: (1) Diverticulitis of colon with perforation Status: Acute Comment Review of Relevant I have reviewed the following items kalin (where applicable) has been applied. Labs Laboratory Tests Test 03/10/18 04:20 03/10/18 09:45 03/11/18 05:30 03/11/18 08:45 White Blood Count 10.3 x10^3/uL (4.0-11.0) 9.1 x10^3/uL (4.0-11.0) Red Blood Count 3.81 x10^6/uL (4.30-5.70) 3.78 x10^6/uL (4.30-5.70) Hemoglobin 11.6 g/dL (13.0-17.5) 11.3 g/dL (13.0-17.5) Hematocrit 34.3 % (39.0-53.0) 33.9 % (39.0-53.0) Mean Corpuscular Volume 90 fL (79-100) 90 fL (79-100) Mean Corpuscular Hemoglobin 30 pg (25-35) 30 pg (25-35) Mean Corpuscular Hemoglobin Concent 34 g/dL (31-37) 33 g/dL (31-37) Red Cell Distribution Width 13.3 % (11.5-14.5) 13.8 % (11.5-14.5) Platelet Count 231 x10^3/uL (140-400) 247 x10^3/uL (140-400) Neutrophils (%) (Auto) 79 % (31-73) 72 % (31-73) Lymphocytes (%) (Auto) 13 % (24-48) 17 % (24-48) Monocytes (%) (Auto) 8 % (0-9) 9 % (0-9) Eosinophils (%) (Auto) 0 % (0-3) 2 % (0-3) Basophils (%) (Auto) 1 % (0-3) 0 % (0-3) Neutrophils # (Auto) 8.1 x10^3uL (1.8-7.7) 6.5 x10^3uL (1.8-7.7) Lymphocytes # (Auto) 1.3 x10^3/uL (1.0-4.8) 1.6 x10^3/uL (1.0-4.8) Monocytes # (Auto) 0.8 x10^3/uL (0.0-1.1) 0.8 x10^3/uL (0.0-1.1) Eosinophils # (Auto) 0.0 x10^3/uL (0.0-0.7) 0.2 x10^3/uL (0.0-0.7) Basophils # (Auto) 0.0 x10^3/uL (0.0-0.2) 0.0 x10^3/uL (0.0-0.2) Sodium Level 141 mmol/L (136-145) 140 mmol/L (136-145) Potassium Level 3.8 mmol/L (3.5-5.1) 3.3 mmol/L (3.5-5.1) Chloride Level 108 mmol/L (98-107) 104 mmol/L (98-107) Carbon Dioxide Level 26 mmol/L (21-32) 27 mmol/L (21-32) Anion Gap 7 (6-14) 9 (6-14) Blood Urea Nitrogen 19 mg/dL (8-26) 19 mg/dL (8-26) Creatinine 1.3 mg/dL (0.7-1.3) 1.2 mg/dL (0.7-1.3) Estimated GFR (Cockcroft-Gault) 62.5 68.5 BUN/Creatinine Ratio 15 (6-20) Glucose Level 139 mg/dL (70-99) 118 mg/dL (70-99) Calcium Level 8.4 mg/dL (8.5-10.1) 8.5 mg/dL (8.5-10.1) Total Bilirubin 0.5 mg/dL (0.2-1.0) Aspartate Amino Transf (AST/SGOT) 39 U/L (15-37) Alanine Aminotransferase (ALT/SGPT) 64 U/L (16-63) Alkaline Phosphatase 57 U/L (46-116) Total Protein 6.3 g/dL (6.4-8.2) Albumin 1.9 g/dL (3.4-5.0) Albumin/Globulin Ratio 0.4 (1.0-1.7) O2 Saturation 93 % (92-99) 95 % (92-99) Arterial Blood pH 7.46 (7.35-7.45) 7.49 (7.35-7.45) Arterial Blood pCO2 at Patient Temp 36 mmHg (35-46) 29 mmHg (35-46) Arterial Blood pO2 at Patient Temp 63 mmHg (85-108) 75 mmHg (85-108) Arterial Blood HCO3 25 mmol/L (21-28) 22 mmol/L (21-28) Arterial Blood Base Excess 1 mmol/L (-3-3) -1 mmol/L (-3-3) FiO2 80 60 Phosphorus Level 2.0 mg/dL (2.6-4.7) Magnesium Level 1.6 mg/dL (1.8-2.4) Troponin I Quantitative 0.039 ng/mL (0.000-0.055) Test 03/11/18 08:55 Glucose (Fingerstick) 115 mg/dL (70-99) Laboratory Tests Test 03/11/18 05:30 03/11/18 08:45 03/11/18 08:55 White Blood Count 9.1 x10^3/uL (4.0-11.0) Red Blood Count 3.78 x10^6/uL (4.30-5.70) Hemoglobin 11.3 g/dL (13.0-17.5) Hematocrit 33.9 % (39.0-53.0) Mean Corpuscular Volume 90 fL (79-100) Mean Corpuscular Hemoglobin 30 pg (25-35) Mean Corpuscular Hemoglobin Concent 33 g/dL (31-37) Red Cell Distribution Width 13.8 % (11.5-14.5) Platelet Count 247 x10^3/uL (140-400) Neutrophils (%) (Auto) 72 % (31-73) Lymphocytes (%) (Auto) 17 % (24-48) Monocytes (%) (Auto) 9 % (0-9) Eosinophils (%) (Auto) 2 % (0-3) Basophils (%) (Auto) 0 % (0-3) Neutrophils # (Auto) 6.5 x10^3uL (1.8-7.7) Lymphocytes # (Auto) 1.6 x10^3/uL (1.0-4.8) Monocytes # (Auto) 0.8 x10^3/uL (0.0-1.1) Eosinophils # (Auto) 0.2 x10^3/uL (0.0-0.7) Basophils # (Auto) 0.0 x10^3/uL (0.0-0.2) Sodium Level 140 mmol/L (136-145) Potassium Level 3.3 mmol/L (3.5-5.1) Chloride Level 104 mmol/L (98-107) Carbon Dioxide Level 27 mmol/L (21-32) Anion Gap 9 (6-14) Blood Urea Nitrogen 19 mg/dL (8-26) Creatinine 1.2 mg/dL (0.7-1.3) Estimated GFR (Cockcroft-Gault) 68.5 Glucose Level 118 mg/dL (70-99) Calcium Level 8.5 mg/dL (8.5-10.1) Phosphorus Level 2.0 mg/dL (2.6-4.7) Magnesium Level 1.6 mg/dL (1.8-2.4) Troponin I Quantitative 0.039 ng/mL (0.000-0.055) O2 Saturation 95 % (92-99) Arterial Blood pH 7.49 (7.35-7.45) Arterial Blood pCO2 at Patient Temp 29 mmHg (35-46) Arterial Blood pO2 at Patient Temp 75 mmHg (85-108) Arterial Blood HCO3 22 mmol/L (21-28) Arterial Blood Base Excess -1 mmol/L (-3-3) FiO2 60 Glucose (Fingerstick) 115 mg/dL (70-99) Microbiology 03/09/18 Blood Culture - Preliminary, Resulted NO GROWTH AFTER 1 DAY Medications Current Medications Sodium Chloride (Normal Saline Flush) 3 ml QSHIFT PRN IV AFTER MEDS AND BLOOD DRAWS; Start 03/07/18 at 11:00 Sodium Chloride 1,000 ml @ 1,000 mls/hr Q1H IV Last administered on 03/07/18at 11:32; Start 03/07/18 at 11:00; Stop 03/07/18 at 11:59; Status DC Iohexol (Omnipaque 300 Mg/ml) 75 ml 1X ONCE IV Last administered on 03/07/18at 12:46; Start 03/07/18 at 11:15; Stop 03/07/18 at 11:16; Status DC Info (CONTRAST GIVEN -- Rx MONITORING) 1 each PRN DAILY PRN MC SEE COMMENTS; Start 03/07/18 at 11:15; Stop 03/09/18 at 11:14; Status DC Sodium Chloride 1,000 ml @ 1,000 mls/hr 1X ONCE IV Last administered on at 12:37; Start 03/07/18 at 12:00; Stop 03/07/18 at 12:59; Status DC Fentanyl Citrate (Fentanyl 2ml Vial) 50 mcg 1X ONCE IV Last administered on 03/07/18at 13:07; Start 03/07/18 at 13:00; Stop 03/07/18 at 13:01; Status DC Metronidazole 100 ml @ 100 mls/hr 1X ONCE IV ; Start 03/07/18 at 13:30; Stop at 14:29; Status DC Ciprofloxacin/ Dextrose 200 ml @ 200 mls/hr ONCE STAT IV Last administered on 03/07/18at 13:42; Start 03/07/18 at 13:12; Stop 03/07/18 at 14:11; Status DC Piperacillin Sod/ Tazobactam Sod 3.375 gm/Sodium Chloride 50 ml @ 100 mls/hr 1X ONCE IV Last administered on 03/07/18at 14:43; Start 03/07/18 at 14:30; Stop 03/07/18 at 14:59; Status DC Diphenhydramine HCl (Benadryl) 50 mg 1X ONCE IVP Last administered on at 14:33; Start 03/07/18 at 14:15; Stop 03/07/18 at 14:16; Status DC Fentanyl Citrate (Fentanyl 2ml Vial) 25 mcg 1X ONCE IV ; Start 03/07/18 at 14:15 ; Stop 03/07/18 at 14:16; Status Cancel Morphine Sulfate (Morphine Sulfate) 4 mg 1X ONCE IV Last administered on at 14:35; Start 03/07/18 at 14:30; Stop 03/07/18 at 14:31; Status DC Ondansetron HCl (Zofran) 4 mg PRN Q8HRS PRN IV NAUSEA/VOMITING; Start 03/07/18 at 14:30; Stop 03/08/18 at 14:29; Status DC Morphine Sulfate (Morphine Sulfate) 4 mg PRN Q2HR PRN IV PAIN Last administered on 03/08/18 08:20; Start 03/07/18 at 14:30; Stop 03/08/18 at 14:29; Status DC Piperacillin Sod/ Tazobactam Sod 3.375 gm/Sodium Chloride 50 ml @ 100 mls/hr Q6HRS IV Last administered on 03/11/18at 11:26; Start 03/07/18 at 18:00 Metronidazole 100 ml @ 100 mls/hr Q8HRS IV Last administered on 03/09/18at 11:19 ; Start 03/07/18 at 22:00; Stop 03/09/18 at 15:10; Status DC Sodium Chloride 500 ml @ 500 mls/hr 1X ONCE IV Last administered on 03/07/18at 16:45; Start 03/07/18 at 16:45; Stop 03/07/18 at 17:44; Status DC Amino Acids/ Glycerin/ Electrolytes 1,000 ml @ 80 mls/hr [id number] IV Last administered on 03/11/18 07:47; Start 03/07/18 at 16:45; Stop 03/11/18 at 21:59 Acetaminophen (Tylenol) 650 mg PRN Q6HRS PRN PO fever ; Start 03/07/18 at 18:00 Pantoprazole Sodium (PROTONIX VIAL for IV PUSH) 40 mg DAILYAC IVP Last administered on 03/11/18 07:47; Start 03/08/18 at 07:45 Morphine Sulfate (Morphine Sulfate) 4 mg PRN Q2HR PRN IV MODRATE-SEVERE PAIN 2ND CHOICE Last administered on 03/09/18 04:26; Start 03/08/18 at 14:45 Lorazepam (Ativan) 1 mg PRN Q4HRS PRN IV ANXIETY / AGITATION Last administered on 8/3/18at 21:41; Start 03/08/18 at 20:30 Ondansetron HCl (Zofran) 4 mg PRN Q6HRS PRN IV NAUSEA/VOMITING 1ST CHOICE Last administered on 03/09/18at 02:07; Start 03/09/18 at 02:00 Etomidate (Amidate) 20 mg STK-MED ONCE IV ; Start 03/09/18 at 06:55; Stop at 06:56; Status DC Norepinephrine Bitartrate 250 ml @ As Directed STK-MED ONCE IV ; Start 03/09/18 at 06:55; Stop 03/09/18 at 06:56; Status DC Midazolam HCl (Versed) 5 mg STK-MED ONCE .ROUTE ; Start 03/09/18 at 06:55; Stop 03/09/18 at 06:56; Status DC Fentanyl Citrate (Fentanyl 2ml Vial) 100 mcg STK-MED ONCE .ROUTE ; Start at 06:55; Stop 03/09/18 at 06:56; Status DC Succinylcholine Chloride (Anectine) 200 mg STK-MED ONCE .ROUTE ; Start 03/09/18 at 06:56; Stop 03/09/18 at 06:57; Status DC Fentanyl Citrate 30 ml @ 0 mls/hr CONT PRN IV PER PROTOCOL Last administered on 03/11/18at 07:50; Start 03/09/18 at 07:00 Fentanyl Citrate (Fentanyl 2ml Vial) 25 mcg PRN Q1HR PRN IV MILD PAIN; Start at 07:00 Fentanyl Citrate (Fentanyl 2ml Vial) 50 mcg PRN Q1HR PRN IV MOD TO SEVERE PAIN ; Start 03/09/18 at 07:00 Chlorhexidine Gluconate (Peridex) 15 ml BID MM Last administered on 03/11/18at 07 :48; Start 03/09/18 at 09:00 Midazolam HCl (Versed) 2 mg PRN Q30MIN PRN IV SEDATION; Start 03/09/18 at 07:00 ; Stop 03/10/18 at 10:26; Status DC Midazolam HCl 100 ml @ 0 mls/hr CONT PRN IV PER PROTOCOL Last administered on at 12:18; Start 03/09/18 at 07:00 Enoxaparin Sodium (Lovenox 40mg Syringe) 40 mg Q12H SQ Last administered on 03/10at 09:31; Start 03/09/18 at 09:00; Stop 03/10/18 at 12:01; Status DC Sodium Chloride 1,000 ml @ 125 mls/hr Q8H IV Last administered on 03/11/18at 07: 45; Start 03/09/18 at 10:15 Sodium Chloride 1,000 ml @ 1,000 mls/hr 1X ONCE IV Last administered on at 10:15; Start 03/09/18 at 10:15; Stop 03/09/18 at 11:14; Status DC Norepinephrine Bitartrate 250 ml @ As Directed STK-MED ONCE IV ; Start 03/09/18 at 10:37; Stop 03/09/18 at 10:38; Status DC Phenylephrine HCl 20 mg/Sodium Chloride 252 ml @ 22.68 mls/ hr 1X ONCE IV ; Start 03/09/18 at 10:45; Stop 03/09/18 at 21:51; Status DC Iohexol (Omnipaque 300 Mg/ml) 75 ml 1X ONCE IV ; Start 03/09/18 at 11:30; Stop 03/09/18 at 11:35; Status DC Micafungin Sodium 100 mg/Dextrose 100 ml @ 100 mls/hr Q24H IV Last administered on 03/10/18at 16:27; Start 03/09/18 at 16:00 Linezolid/Dextrose 300 ml @ 300 mls/hr Q12H IV Last administered on 03/11/18at 05:27; Start 03/09/18 at 17:00 Norepinephrine Bitartrate 250 ml @ 1.875 mls/ hr CONT PRN IV SEE I/O RECORD Last administered on 03/09/18at 16:18; Start 03/09/18 at 16:00 Furosemide (Lasix) 40 mg 1X ONCE IVP Last administered on 03/10/18at 08:49; Start 03/10/18 at 09:00; Stop 03/10/18 at 09:01; Status DC Perflutren Protein Type A Microsphe (Optison) 0.66 mg STK-MED ONCE IV ; Start at 10:23; Stop 03/10/18 at 10:25; Status DC Enoxaparin Sodium (Lovenox Per Pharmacy Treatment Dosing) 1 each PRN DAILY PRN MC SEE COMMENTS; Start 03/10/18 at 12:00; Stop 03/11/18 at 12:50; Status DC Enoxaparin Sodium (Lovenox 150mg Syringe) 130 mg Q12H SQ Last administered on at 07:48; Start 03/10/18 at 21:00; Stop 03/11/18 at 12:51; Status DC Enoxaparin Sodium (Lovenox 100mg Syringe) 90 mg 1X ONCE SQ Last administered on 03/10/18at 13:53; Start 03/10/18 at 12:30; Stop 03/10/18 at 12:31; Status DC Perflutren Protein Type A Microsphe (Optison) 0.66 mg 1X ONCE IV Last administered on 03/10/18at 12:55; Start 03/10/18 at 13:00; Stop 03/10/18 at 13:01; Status DC Iohexol (Omnipaque 300 Mg/ml) 75 ml 1X ONCE IV Last administered on 03/11/18at 10:00; Start 03/11/18 at 09:00; Stop 03/11/18 at 09:01; Status DC Info (CONTRAST GIVEN -- Rx MONITORING) 1 each PRN DAILY PRN MC SEE COMMENTS; Start 03/11/18 at 09:00; Stop 03/13/18 at 08:59 Norepinephrine Bitartrate (Levophed 8mg/ 250ml Premix Drip) 8 mg STK-MED ONCE IV ; Start 03/09/18 at 07:00; Stop 03/11/18 at 08:58; Status DC Insulin Human Lispro (HumaLOG) 0-5 UNITS TIDWMEALS SQ ; Start 03/11/18 at 12:00 Dextrose (Dextrose 50%-Water Syringe) 12.5 gm PRN Q15MIN PRN IV SEE COMMENTS; Start 03/11/18 at 09:15 Potassium Chloride/Water 50 ml @ 50 mls/hr 1X ONCE IV Last administered on 03/11at 09:43; Start 03/11/18 at 10:00; Stop 03/11/18 at 10:59; Status DC Info (Anti-Coagulation Monitoring By Pharmacy) 1 each PRN DAILY PRN MC SEE COMMENTS; Start 03/11/18 at 09:30; Stop 03/11/18 at 12:51; Status DC Info (Tpn Per Pharmacy) 1 each PRN DAILY PRN MC SEE COMMENTS; Start 03/11/18 at 11:15 Magnesium Sulfate 50 ml @ 25 mls/hr 1X ONCE IV ; Start 03/11/18 at 16:00; Stop 03/11/18 at 17:59 Potassium Phosphate 13.6 mmol/Dextrose 104.5333 ml @ 52.267 m... ONCE ONCE IV ; Start 03/11/18 at 18:00; Stop 03/11/18 at 19:59 Norepinephrine Bitartrate (Levophed 8mg/ 250ml Premix Drip) 8 mg STK-MED ONCE IV ; Start 03/09/18 at 11:00; Stop 03/11/18 at 12:37; Status DC Enoxaparin Sodium (Lovenox 40mg Syringe) 40 mg Q12HR SQ ; Start 03/11/18 at 21:00 Sodium Chloride 90 meq/Potassium Chloride 50 meq/ Potassium Phosphate 13.6 mmol/ Magnesium Sulfate 10 meq/ Multivitamins 10 ml/Chromium/ Copper/Manganese/ Seleni /Zn 1 ml/ Total Parenteral Nutrition/Amino Acids/Dextrose/ Fat Emulsion Intravenous 1,800 ml @ 75 mls/hr TPN CONT IV ; Start 03/11/18 at 22:00; Stop at 21:59 Vitals/I & O Vital Sign - Last 24 Hours 03/10/18 03/10/18 03/10/18 03/10/18 14:00 14:35 15:00 16:00 Pulse 93 94 Resp 22 22 B/P (MAP) 105/56 (72) 116/67 (83) Pulse Ox 94 94 96 O2 Delivery Ventilator Ventilator Ventilator Mechanical Ventilator 03/10/18 03/10/18 03/10/18 03/10/18 16:00 16:37 17:00 17:37 Temp 100.0 100.0 Pulse 100 94 Resp 22 22 22 B/P (MAP) 101/64 (76) 102/55 (71) Pulse Ox 93 93 94 94 O2 Delivery Ventilator Ventilator Ventilator Ventilator 03/10/18 03/10/18 03/10/18 03/10/18 18:00 18:30 19:00 20:00 Temp 100.8 100.8 Pulse 99 92 91 Resp 22 22 22 B/P (MAP) 102/54 (70) 110/55 (73) 116/54 (74) Pulse Ox 94 95 93 94 O2 Delivery Ventilator Ventilator Ventilator Ventilator 03/10/18 03/10/18 03/10/18 03/10/18 20:00 20:25 21:00 21:24 Temp 100.2 100.2 Pulse 92 Resp 22 B/P (MAP) 100/53 (69) Pulse Ox 94 95 94 O2 Delivery Mechanical Ventilator Ventilator Ventilator Ventilator 03/10/18 03/10/18 03/10/18 03/11/18 22:00 23:00 23:35 00:00 Temp 100.1 100.1 Pulse 84 85 90 Resp 22 22 22 B/P (MAP) 111/56 (74) 102/57 (72) 106/58 (74) Pulse Ox 97 96 96 95 O2 Delivery Ventilator Ventilator Ventilator Ventilator 03/11/18 03/11/18 03/11/18 03/11/18 00:00 00:29 01:00 02:00 Pulse 85 83 Resp 22 22 22 B/P (MAP) 93/52 (66) 99/56 (70) Pulse Ox 96 96 96 O2 Delivery Mechanical Ventilator Ventilator Ventilator Ventilator 03/11/18 03/11/18 03/11/18 03/11/18 02:16 03:00 04:00 04:00 Temp 100.3 100.3 Pulse 83 85 Resp 22 22 B/P (MAP) 104/62 (76) 104/59 (74) Pulse Ox 96 97 96 O2 Delivery Ventilator Ventilator Ventilator Mechanical Ventilator 03/11/18 03/11/18 03/11/18 03/11/18 04:55 05:00 06:00 07:00 Temp 100.4 100.4 Pulse 82 82 81 Resp 22 22 22 B/P (MAP) 111/67 (82) 117/66 (83) 106/64 (78) Pulse Ox 96 96 97 98 O2 Delivery Ventilator Ventilator Ventilator Ventilator 03/11/18 03/11/18 03/11/18 03/11/18 07:50 08:00 08:00 08:20 Pulse 84 Resp 22 20 20 B/P (MAP) 110/68 (82) Pulse Ox 98 97 97 O2 Delivery Ventilator Ventilator Mechanical Ventilator Ventilator 03/11/18 03/11/18 03/11/18 03/11/18 08:32 08:58 09:00 10:00 Pulse 90 112 Resp 18 20 B/P (MAP) 111/65 (80) 135/65 (88) Pulse Ox 97 97 97 O2 Delivery Ventilator Ventilator Ventilator Ventilator 03/11/18 03/11/18 03/11/18 03/11/18 11:00 11:00 12:00 12:00 Temp 99.8 99.8 Pulse 111 95 Resp 18 25 B/P (MAP) 114/65 (81) 85/54 (64) Pulse Ox 94 94 95 O2 Delivery Ventilator Ventilator Ventilator Mechanical Ventilator O2 Flow Rate 2.0 Intake and Output 03/10/18 03/10/18 03/11/18 15:00 23:00 07:00 Intake Total 0 ml 1568 ml 1852 ml Output Total 3700 ml 555 ml 330 ml Balance -3700 ml 1013 ml 1522 ml KELBY CEDEÑO MD Mar 11, 2018 13:24
--- NOTE | 2018-03-11 14:46 | RAD ---
Portable chest, 03/11/2018, 2:02 PM: HISTORY: Check new PICC placement Comparison is made to a study from earlier the same day. An ET tube remains in place with its tip located 3.5 cm above the santa. A right PICC has been placed extending into the superior aspect of the right atrium. The NG tube has been removed. The heart is enlarged. The pulmonary vascularity is better defined. There is mild residual atelectasis/infiltrate in the left base. No new pulmonary abnormality is seen. There is no evidence of pneumothorax or definite pleural fluid. IMPRESSION: 1. The right PICC extends into the superior aspect of the right atrium. 2. The ET tube remains in place in satisfactory position. 3. Improved pulmonary vascularity. 4. Mild ongoing left basilar atelectasis/infiltrate. Electronically signed by: Francisco Ruffin MD (03/11/2018 2:42 PM) [facility]
[2018-03-11] MEDS ORDERED: MAGNESIUM SULFATE 2GM 50 ML IV ONE (16:00)
--- NOTE | 2018-03-11 16:41 | PDOC ---
CARDIOLOGY PROGRESS NOTE SUBJECTIVE: No acute events overnight. Negative P.E> study. OBJECTIVE: Vital SIgns: Vital Signs Date Time Temp Pulse Resp B/P (MAP) Pulse Ox O2 Delivery O2 Flow Rate FiO2 03/11/18 16:00 99.4 82 18 112/71 (85) 98 99.4 03/11/18 16:00 Mechanical Ventilator 03/11/18 12:00 2.0 I & O Intake and Output 03/11/18 07:00 Intake Total 3420 ml Output Total 4585 ml Balance -1165 ml Intake Oral 0 ml IV Total 3420 ml Output Urine Total 4585 ml Objective: clr lungs anteriorly normal heart tones no edema. soft abd CURRENT MEDICATIONS: Current Medications Medications (Trade) Dose Ordered Sig/Kee Start Time Stop Time Status Last Admin Dose Admin Acetaminophen (Tylenol) 650 mg PRN Q6HRS PRN 03/07/18 18:00 Amino Acids/ Glycerin/ Electrolytes 1,000 ml @ 80 mls/hr [id number] 03/07/18 16:45 03/11/18 21:59 03/11/18 07:47 80 MLS/HR Chlorhexidine Gluconate (Peridex) 15 ml BID 03/09/18 09:00 03/11/18 07:48 15 ML Ciprofloxacin/ Dextrose 200 ml @ 200 mls/hr ONCE STAT 03/07/18 13:12 03/07/18 14:11 DC 03/07/18 13:42 200 MLS/HR Dextrose (Dextrose 50%-Water Syringe) 12.5 gm PRN Q15MIN PRN 03/11/18 09:15 Diphenhydramine HCl (Benadryl) 50 mg 1X ONCE 03/07/18 14:15 03/07/18 14:16 DC 03/07/18 14:33 50 MG Enoxaparin Sodium (Lovenox 100mg Syringe) 90 mg 1X ONCE 03/10/18 12:30 03/10/18 12:31 DC 03/10/18 13:53 90 MG Enoxaparin Sodium (Lovenox 150mg Syringe) 130 mg Q12H 03/10/18 21:00 03/11/18 12:51 DC 03/11/18 07:48 130 MG Enoxaparin Sodium (Lovenox 40mg Syringe) 40 mg Q12HR 03/11/18 21:00 Enoxaparin Sodium (Lovenox Per Pharmacy Treatment Dosing) 1 each PRN DAILY PRN 03/10/18 12:00 03/11/18 12:50 DC Etomidate (Amidate) 20 mg STK-MED ONCE 03/09/18 06:55 03/09/18 06:56 DC Fentanyl Citrate (Fentanyl 2ml Vial) 50 mcg PRN Q1HR PRN 03/09/18 07:00 Furosemide (Lasix) 40 mg 1X ONCE 03/10/18 09:00 03/10/18 09:01 DC 03/10/18 08:49 40 MG Info (Anti-Coagulation Monitoring By Pharmacy) 1 each PRN DAILY PRN 03/11/18 09:30 03/11/18 12:51 DC Info (CONTRAST GIVEN -- Rx MONITORING) 1 each PRN DAILY PRN 03/11/18 09:00 03/13/18 08:59 Info (Tpn Per Pharmacy) 1 each PRN DAILY PRN 03/11/18 11:15 03/11/18 13:24 1 EACH Insulin Human Lispro (HumaLOG) 0-5 UNITS TIDWMEALS 03/11/18 12:00 Iohexol (Omnipaque 300 Mg/ml) 75 ml 1X ONCE 03/11/18 09:00 03/11/18 09:01 DC 03/11/18 10:00 75 ML Linezolid/Dextrose 300 ml @ 300 mls/hr Q12H 03/09/18 17:00 03/11/18 05:27 300 MLS/HR Lorazepam (Ativan) 1 mg PRN Q4HRS PRN 03/08/18 20:30 03/08/18 21:41 1 MG Magnesium Sulfate 50 ml @ 25 mls/hr 1X ONCE 03/11/18 16:00 03/11/18 17:59 03/11/18 15:09 25 MLS/HR Metronidazole 100 ml @ 100 mls/hr Q8HRS 03/07/18 22:00 03/09/18 15:10 DC 03/09/18 11:19 100 MLS/HR Micafungin Sodium 100 mg/Dextrose 100 ml @ 100 mls/hr Q24H 03/09/18 16:00 03/10/18 16:27 100 MLS/HR Midazolam HCl 100 ml @ 0 mls/hr CONT PRN 03/09/18 07:00 03/11/18 12:18 10 MLS/HR Midazolam HCl (Versed) 2 mg PRN Q30MIN PRN 03/09/18 07:00 03/10/18 10:26 DC Morphine Sulfate (Morphine Sulfate) 4 mg PRN Q2HR PRN 03/08/18 14:45 03/09/18 04:26 4 MG Norepinephrine Bitartrate (Levophed 8mg/ 250ml Premix Drip) 8 mg STK-MED ONCE 03/09/18 11:00 03/11/18 12:37 DC Ondansetron HCl (Zofran) 4 mg PRN Q6HRS PRN 03/09/18 02:00 03/09/18 02:07 4 MG Pantoprazole Sodium (PROTONIX VIAL for IV PUSH) 40 mg DAILYAC 03/08/18 07:45 03/11/18 07:47 40 MG Perflutren Protein Type A Microsphe (Optison) 0.66 mg 1X ONCE 03/10/18 13:00 03/10/18 13:01 DC 03/10/18 12:55 0.66 MG Phenylephrine HCl 20 mg/Sodium Chloride 252 ml @ 22.68 mls/ hr 1X ONCE 03/09/18 10:45 03/09/18 21:51 DC Piperacillin Sod/ Tazobactam Sod 3.375 gm/Sodium Chloride 50 ml @ 100 mls/hr Q6HRS 03/07/18 18:00 03/11/18 11:26 100 MLS/HR Potassium Chloride/Water 50 ml @ 50 mls/hr 1X ONCE 03/11/18 10:00 03/11/18 10:59 DC 03/11/18 09:43 50 MLS/HR Potassium Phosphate 13.6 mmol/Dextrose 104.5333 ml @ 52.267 m... ONCE ONCE 03/11/18 18:00 03/11/18 19:59 Sodium Chloride (Normal Saline Flush) 3 ml QSHIFT PRN 03/07/18 11:00 Sodium Chloride 90 meq/Potassium Chloride 50 meq/ Potassium Phosphate 13.6 mmol/Magnesium Sulfate 10 meq/ Multivitamins 10 ml/Chromium/ Copper/Manganese/ Seleni/Zn 1 ml/ Total Parenteral Nutrition/Amino Acids/Dextrose/ Fat Emulsion Intravenous 1,800 ml @ 75 mls/hr TPN CONT 03/11/18 22:00 03/12/18 21:59 Succinylcholine Chloride (Anectine) 200 mg STK-MED ONCE 03/09/18 06:56 03/09/18 06:57 DC ASSESSMENT: 1. Acute hypoxic resp failure likely due to ARDS 2. 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 Currently appears euvolemic. Continue treatment per pulm 2. He apparently had a stress test prior according to his , echo with moderate LV dysfunction (? if this is chronic in the setting of obesity hypovent vs acute due to illness now) 3. Repeat echo after extubation. BP/HR stable. Outpt stress test. Thanks supportive care. SHAY PINEDA MD Mar 11, 2018 16:41
[2018-03-11] MEDS: MICAFUNGIN 100 MG in IV DEXTROSE 5% 100ML 100 ML IV SCH (16:57)
[2018-03-11] MEDS ORDERED: POTASSIUM PHOSPHATE DIBASIC 13.6 MMOL in IV DEXTROSE 5% 100ML 100 ML IV ONE (18:00)
[2018-03-11] MEDS: ENOXAPARIN 40 MG/0.4 ML SYRINGE. SQ SCH (20:39)
[2018-03-11] MEDS ORDERED: [UNRECOGNIZED DRUG - OTHER] IV SCH ×9 (22:00)
[2018-03-11] MEDS ORDERED: DEXTROSE 70% IV SCH ×9 (22:00)
[2018-03-11] MEDS ORDERED: TOTAL PARENTERAL NUTRITION IV SCH ×9 (22:00)
[2018-03-11] MEDS ORDERED: AMINO ACIDS IV SCH ×9 (22:00)
[2018-03-12] VITALS (24 sets, daily range): BP systolic 95–138; BP diastolic 51–89
[2018-03-12 04:46] LABS: BASO # 0.1 x10^3/uL (0.0-0.2); BASO % 1 % (0-3); EOS # 0.3 x10^3/uL (0.0-0.7); EOS % 3 % (0-3); HEMOGLOBIN 10.4 g/dL (13.0-17.5); LYMPH # 1.1 x10^3/uL (1.0-4.8); LYMPH % 12 % (24-48); MEAN CORPUSCULAR HEMOGLOBIN 30 pg (25-35); MEAN CORPUSCULAR HGB CONC 34 g/dL (31-37); MEAN CORPUSCULAR VOLUME 90 fL (79-100); MONO # 0.6 x10^3/uL (0.0-1.1); MONO % 7 % (0-9); NEUT % 77 % (31-73); PLATELET COUNT 255 x10^3/uL (140-400); RED BLOOD COUNT 3.44 x10^6/uL (4.30-5.70); RED CELL DISTRIBUTION WIDTH 13.5 % (11.5-14.5); WHITE BLOOD COUNT 9.1 x10^3/uL (4.0-11.0)
[2018-03-12 05:12] LABS: ALBUMIN 1.8 g/dL (3.4-5.0); ALBUMIN/GLOBULIN RATIO 0.4 (1.0-1.7); CALCIUM 8.2 mg/dL (8.5-10.1); GFR 84.5; MAGNESIUM 2.1 mg/dL (1.8-2.4); POTASSIUM 3.4 mmol/L (3.5-5.1); TOTAL BILIRUBIN 0.5 mg/dL (0.2-1.0); TOTAL PROTEIN 6.3 g/dL (6.4-8.2)
[2018-03-12] MEDS: PIPERACILLIN/TAZOBACTAM 3.375 GM in IV NORMAL SALINE 50ML 50 ML IV SCH ×3 (05:45→18:00)
[2018-03-12] MEDS: IV NORMAL SALINE 1000ML BAG 1,000 ML IV SCH ×2 (06:43→11:47)
--- NOTE | 2018-03-12 07:11 | PDOC ---
Infectious Disease Note Subjective Subjective Intubated but awake. States ok Vital Sign Vital Signs Vital Signs Date Time Temp Pulse Resp B/P (MAP) Pulse Ox O2 Delivery O2 Flow Rate FiO2 03/12/18 06:21 22 95 Ventilator 03/12/18 06:00 78 112/64 (80) 03/12/18 04:00 99.8 99.8 03/11/18 12:00 2.0 Physical Exam PHYSICAL EXAM GENERAL: Intubated alert with mitt left hand HENT: Pupils equal, nml conj. OGT & ETT NECK: no JVD LUNGS: CTA CV: Distant heart tones ABDOMEN:n Obese, hypoactive bowel sounds, soft, no grimace to palpation : Galvan in place EXT: No gross edema or cyanosis SKIN: warm without rash Right PICC line - clean Labs Lab Laboratory Tests Test 03/11/18 08:45 03/11/18 08:55 03/11/18 17:01 03/12/18 04:30 O2 Saturation 95 % (92-99) Arterial Blood pH 7.49 (7.35-7.45) Arterial Blood pCO2 at Patient Temp 29 mmHg (35-46) Arterial Blood pO2 at Patient Temp 75 mmHg (85-108) Arterial Blood HCO3 22 mmol/L (21-28) Arterial Blood Base Excess -1 mmol/L (-3-3) FiO2 60 Glucose (Fingerstick) 115 mg/dL (70-99) 86 mg/dL (70-99) White Blood Count 9.1 x10^3/uL (4.0-11.0) Red Blood Count 3.44 x10^6/uL (4.30-5.70) Hemoglobin 10.4 g/dL (13.0-17.5) Hematocrit 31.0 % (39.0-53.0) Mean Corpuscular Volume 90 fL (79-100) Mean Corpuscular Hemoglobin 30 pg (25-35) Mean Corpuscular Hemoglobin Concent 34 g/dL (31-37) Red Cell Distribution Width 13.5 % (11.5-14.5) Platelet Count 255 x10^3/uL (140-400) Neutrophils (%) (Auto) 77 % (31-73) Lymphocytes (%) (Auto) 12 % (24-48) Monocytes (%) (Auto) 7 % (0-9) Eosinophils (%) (Auto) 3 % (0-3) Basophils (%) (Auto) 1 % (0-3) Neutrophils # (Auto) 7.0 x10^3uL (1.8-7.7) Lymphocytes # (Auto) 1.1 x10^3/uL (1.0-4.8) Monocytes # (Auto) 0.6 x10^3/uL (0.0-1.1) Eosinophils # (Auto) 0.3 x10^3/uL (0.0-0.7) Basophils # (Auto) 0.1 x10^3/uL (0.0-0.2) Sodium Level 138 mmol/L (136-145) Potassium Level 3.4 mmol/L (3.5-5.1) Chloride Level 104 mmol/L (98-107) Carbon Dioxide Level 27 mmol/L (21-32) Anion Gap 7 (6-14) Blood Urea Nitrogen 14 mg/dL (8-26) Creatinine 1.0 mg/dL (0.7-1.3) Estimated GFR (Cockcroft-Gault) 84.5 BUN/Creatinine Ratio 14 (6-20) Glucose Level 126 mg/dL (70-99) Calcium Level 8.2 mg/dL (8.5-10.1) Phosphorus Level 4.0 mg/dL (2.6-4.7) Magnesium Level 2.1 mg/dL (1.8-2.4) Total Bilirubin 0.5 mg/dL (0.2-1.0) Aspartate Amino Transf (AST/SGOT) 33 U/L (15-37) Alanine Aminotransferase (ALT/SGPT) 45 U/L (16-63) Alkaline Phosphatase 59 U/L (46-116) Total Protein 6.3 g/dL (6.4-8.2) Albumin 1.8 g/dL (3.4-5.0) Albumin/Globulin Ratio 0.4 (1.0-1.7) Triglycerides Level 265 mg/dL (0-150) Test 03/12/18 04:36 Glucose (Fingerstick) 121 mg/dL (70-99) Micro Microbiology 03/09/18 Blood Culture - Preliminary, Resulted NO GROWTH AFTER [address] 03/11 IMPRESSION: 1. Life support devices in appropriate position. 2. No large central pulmonary embolus. Lobar, segmental, subsegmental pulmonary arteries cannot be evaluated due to limited contrast opacification. 3. Moderate consolidations with air bronchograms in the bilateral lower lobes. Considerations include aspiration, pneumonia, or atelectasis. 4. Persistent diverticulitis of the sigmoid colon. There is a small incompletely formed probable peridiverticular abscess. 5. Fatty infiltration of the liver. Objective Assessment s/p code blue, 03/09 Sepsis w/ hypotension requiring vasopressor support previously but now off. - BC from 03/07 NGTD. Fever curve improving Leukocytosis - better Acute diverticulitis with microperforation -gen surgery following, on bowel rest Allergy Cipro - rash RONNY Acute respiratory failure ? ARDS developing Substance abuse. urine tox + cocaine and marijuana 03/07 & 03/09 PUD / GERD Etoh dependence Morbid obesity, BMI 41 Hypertension Recently hosp [facility] & EGD- ulcers Rx on omeprazole per Plan Plan of Care Continue Zyvox, Zosyn and micafungin Repeat BC from 03/09 pending Monitor labs/VSS Still critically ill D/w LAURA MORENO MD Mar 12, 2018 07:11
[2018-03-12 07:40] LABS: BASE EXCESS ABG -1 mmol/L (-3-3); HCO3 ABG 24 mmol/L (21-28); PCO2 ABG 41 mmHg (35-46); PO2 ABG 61 mmHg (85-108); SAT O2 ABG 90 % (92-99)
--- NOTE | 2018-03-12 07:54 | RAD ---
Portable chest, 03/12/2018: HISTORY: Respiratory failure Comparison is made to yesterday's study at 2:00 PM. The ET tube tip lies well above the santa. An NG tube is now in place extending into the stomach. The right PICC now extends across the midline with its tip projected over the left innominate vein. The heart is enlarged. The pulmonary vascularity now appears to be within normal limits. There is persistent left basilar atelectasis/infiltrate obscuring the hemidiaphragm. No new pulmonary abnormality is seen. IMPRESSION: 1. The ET tube and NG tube are in satisfactory positions. 2. The right PICC now extends across the midline into the left innominate vein. 3. Unchanged left basilar atelectasis/infiltrate. Electronically signed by: Francisco Ruffin MD (03/12/2018 7:51 AM) [facility]
[2018-03-12] MEDS: INSULIN LISPRO 300 UNITS/3 ML INSULN.PEN. SQ SCH ×3 (08:00→17:00)
--- NOTE | 2018-03-12 09:10 | PDOC ---
JANUSZ SMITH SYSTEM DEVELOPMENT MANAGER 03/12/18 0910: SURGICAL PROGRESS NOTE Subjective family present vent Vital Signs Vital Signs Date Time Temp Pulse Resp B/P (MAP) Pulse Ox O2 Delivery O2 Flow Rate FiO2 03/12/18 09:00 74 19 111/64 (80) 97 Ventilator 03/12/18 08:00 99.5 99.5 03/11/18 12:00 2.0 I&O Intake and Output 03/12/18 07:00 Intake Total 4825 ml Output Total 1795 ml Balance 3030 ml Intake Oral 0 ml IV Total 4825 ml Output Urine Total 1295 ml Gastric Drainage Total 500 ml PATIENT HAS A ZELAYA: Yes General: No acute distress HEENT: Other (vent) Abdomen: Soft Labs Laboratory Tests Test 03/10/18 09:45 03/11/18 05:30 03/11/18 08:45 03/11/18 08:55 O2 Saturation 93 % (92-99) 95 % (92-99) Arterial Blood pH 7.46 (7.35-7.45) 7.49 (7.35-7.45) Arterial Blood pCO2 at Patient Temp 36 mmHg (35-46) 29 mmHg (35-46) Arterial Blood pO2 at Patient Temp 63 mmHg (85-108) 75 mmHg (85-108) Arterial Blood HCO3 25 mmol/L (21-28) 22 mmol/L (21-28) Arterial Blood Base Excess 1 mmol/L (-3-3) -1 mmol/L (-3-3) FiO2 80 60 White Blood Count 9.1 x10^3/uL (4.0-11.0) Red Blood Count 3.78 x10^6/uL (4.30-5.70) Hemoglobin 11.3 g/dL (13.0-17.5) Hematocrit 33.9 % (39.0-53.0) Mean Corpuscular Volume 90 fL (79-100) Mean Corpuscular Hemoglobin 30 pg (25-35) Mean Corpuscular Hemoglobin Concent 33 g/dL (31-37) Red Cell Distribution Width 13.8 % (11.5-14.5) Platelet Count 247 x10^3/uL (140-400) Neutrophils (%) (Auto) 72 % (31-73) Lymphocytes (%) (Auto) 17 % (24-48) Monocytes (%) (Auto) 9 % (0-9) Eosinophils (%) (Auto) 2 % (0-3) Basophils (%) (Auto) 0 % (0-3) Neutrophils # (Auto) 6.5 x10^3uL (1.8-7.7) Lymphocytes # (Auto) 1.6 x10^3/uL (1.0-4.8) Monocytes # (Auto) 0.8 x10^3/uL (0.0-1.1) Eosinophils # (Auto) 0.2 x10^3/uL (0.0-0.7) Basophils # (Auto) 0.0 x10^3/uL (0.0-0.2) Sodium Level 140 mmol/L (136-145) Potassium Level 3.3 mmol/L (3.5-5.1) Chloride Level 104 mmol/L (98-107) Carbon Dioxide Level 27 mmol/L (21-32) Anion Gap 9 (6-14) Blood Urea Nitrogen 19 mg/dL (8-26) Creatinine 1.2 mg/dL (0.7-1.3) Estimated GFR (Cockcroft-Gault) 68.5 Glucose Level 118 mg/dL (70-99) Calcium Level 8.5 mg/dL (8.5-10.1) Phosphorus Level 2.0 mg/dL (2.6-4.7) Magnesium Level 1.6 mg/dL (1.8-2.4) Troponin I Quantitative 0.039 ng/mL (0.000-0.055) Glucose (Fingerstick) 115 mg/dL (70-99) Test 03/11/18 17:01 03/12/18 04:30 03/12/18 04:36 03/12/18 07:35 Glucose (Fingerstick) 86 mg/dL (70-99) 121 mg/dL (70-99) White Blood Count 9.1 x10^3/uL (4.0-11.0) Red Blood Count 3.44 x10^6/uL (4.30-5.70) Hemoglobin 10.4 g/dL (13.0-17.5) Hematocrit 31.0 % (39.0-53.0) Mean Corpuscular Volume 90 fL (79-100) Mean Corpuscular Hemoglobin 30 pg (25-35) Mean Corpuscular Hemoglobin Concent 34 g/dL (31-37) Red Cell Distribution Width 13.5 % (11.5-14.5) Platelet Count 255 x10^3/uL (140-400) Neutrophils (%) (Auto) 77 % (31-73) Lymphocytes (%) (Auto) 12 % (24-48) Monocytes (%) (Auto) 7 % (0-9) Eosinophils (%) (Auto) 3 % (0-3) Basophils (%) (Auto) 1 % (0-3) Neutrophils # (Auto) 7.0 x10^3uL (1.8-7.7) Lymphocytes # (Auto) 1.1 x10^3/uL (1.0-4.8) Monocytes # (Auto) 0.6 x10^3/uL (0.0-1.1) Eosinophils # (Auto) 0.3 x10^3/uL (0.0-0.7) Basophils # (Auto) 0.1 x10^3/uL (0.0-0.2) Sodium Level 138 mmol/L (136-145) Potassium Level 3.4 mmol/L (3.5-5.1) Chloride Level 104 mmol/L (98-107) Carbon Dioxide Level 27 mmol/L (21-32) Anion Gap 7 (6-14) Blood Urea Nitrogen 14 mg/dL (8-26) Creatinine 1.0 mg/dL (0.7-1.3) Estimated GFR (Cockcroft-Gault) 84.5 BUN/Creatinine Ratio 14 (6-20) Glucose Level 126 mg/dL (70-99) Calcium Level 8.2 mg/dL (8.5-10.1) Phosphorus Level 4.0 mg/dL (2.6-4.7) Magnesium Level 2.1 mg/dL (1.8-2.4) Total Bilirubin 0.5 mg/dL (0.2-1.0) Aspartate Amino Transf (AST/SGOT) 33 U/L (15-37) Alanine Aminotransferase (ALT/SGPT) 45 U/L (16-63) Alkaline Phosphatase 59 U/L (46-116) Total Protein 6.3 g/dL (6.4-8.2) Albumin 1.8 g/dL (3.4-5.0) Albumin/Globulin Ratio 0.4 (1.0-1.7) Triglycerides Level 265 mg/dL (0-150) O2 Saturation 90 % (92-99) Arterial Blood pH 7.38 (7.35-7.45) Arterial Blood pCO2 at Patient Temp 41 mmHg (35-46) Arterial Blood pO2 at Patient Temp 61 mmHg (85-108) Arterial Blood HCO3 24 mmol/L (21-28) Arterial Blood Base Excess -1 mmol/L (-3-3) FiO2 Laboratory Tests Test 03/11/18 17:01 03/12/18 04:30 03/12/18 04:36 03/12/18 07:35 Glucose (Fingerstick) 86 mg/dL (70-99) 121 mg/dL (70-99) White Blood Count 9.1 x10^3/uL (4.0-11.0) Red Blood Count 3.44 x10^6/uL (4.30-5.70) Hemoglobin 10.4 g/dL (13.0-17.5) Hematocrit 31.0 % (39.0-53.0) Mean Corpuscular Volume 90 fL (79-100) Mean Corpuscular Hemoglobin 30 pg (25-35) Mean Corpuscular Hemoglobin Concent 34 g/dL (31-37) Red Cell Distribution Width 13.5 % (11.5-14.5) Platelet Count 255 x10^3/uL (140-400) Neutrophils (%) (Auto) 77 % (31-73) Lymphocytes (%) (Auto) 12 % (24-48) Monocytes (%) (Auto) 7 % (0-9) Eosinophils (%) (Auto) 3 % (0-3) Basophils (%) (Auto) 1 % (0-3) Neutrophils # (Auto) 7.0 x10^3uL (1.8-7.7) Lymphocytes # (Auto) 1.1 x10^3/uL (1.0-4.8) Monocytes # (Auto) 0.6 x10^3/uL (0.0-1.1) Eosinophils # (Auto) 0.3 x10^3/uL (0.0-0.7) Basophils # (Auto) 0.1 x10^3/uL (0.0-0.2) Sodium Level 138 mmol/L (136-145) Potassium Level 3.4 mmol/L (3.5-5.1) Chloride Level 104 mmol/L (98-107) Carbon Dioxide Level 27 mmol/L (21-32) Anion Gap 7 (6-14) Blood Urea Nitrogen 14 mg/dL (8-26) Creatinine 1.0 mg/dL (0.7-1.3) Estimated GFR (Cockcroft-Gault) 84.5 BUN/Creatinine Ratio 14 (6-20) Glucose Level 126 mg/dL (70-99) Calcium Level 8.2 mg/dL (8.5-10.1) Phosphorus Level 4.0 mg/dL (2.6-4.7) Magnesium Level 2.1 mg/dL (1.8-2.4) Total Bilirubin 0.5 mg/dL (0.2-1.0) Aspartate Amino Transf (AST/SGOT) 33 U/L (15-37) Alanine Aminotransferase (ALT/SGPT) 45 U/L (16-63) Alkaline Phosphatase 59 U/L (46-116) Total Protein 6.3 g/dL (6.4-8.2) Albumin 1.8 g/dL (3.4-5.0) Albumin/Globulin Ratio 0.4 (1.0-1.7) Triglycerides Level 265 mg/dL (0-150) O2 Saturation 90 % (92-99) Arterial Blood pH 7.38 (7.35-7.45) Arterial Blood pCO2 at Patient Temp 41 mmHg (35-46) Arterial Blood pO2 at Patient Temp 61 mmHg (85-108) Arterial Blood HCO3 24 mmol/L (21-28) Arterial Blood Base Excess -1 mmol/L (-3-3) FiO2 Problem List Problems Medical Problems: (1) Diverticulitis of colon with perforation Status: Acute Assessment/Plan supportive care repeat CT 3-4 days EVAN MCGHEE MD 03/12/18 1002: SURGICAL PROGRESS NOTE Assessment/Plan Reviewed, stable, continue IV abx per ID, FU CT in future; Pulm following JANUSZ SMITH SYSTEM DEVELOPMENT MANAGER Mar 12, 2018 09:10 EVAN MCGHEE MD Mar 12, 2018 10:02
[2018-03-12] MEDS ORDERED: POTASSIUM CHLORIDE 20MEQ 50 ML IV ONE (09:30)
[2018-03-12] MEDS: TPN PER PHARMACY MC PRN (10:18)
[2018-03-12] MEDS: CHLORHEXIDINE 0.12% 15 ML MOUTHWASH. MM SCH ×2 (10:41→20:35)
[2018-03-12] MEDS: ENOXAPARIN 40 MG/0.4 ML SYRINGE. SQ SCH ×2 (10:41→20:35)
[2018-03-12] MEDS: PANTOPRAZOLE IV PUSH 40 MG VIAL. IVP SCH (10:41)
--- NOTE | 2018-03-12 11:11 | PDOC ---
PULMONARY PROGRESS NOTES Subjective PT SEDATED OFF PRESSORS SLOWLY IMPROVING OXYGENATION DOWN TO 40% FIO2/ 8 PEEP Vitals Vital Signs Date Time Temp Pulse Resp B/P (MAP) Pulse Ox O2 Delivery O2 Flow Rate FiO2 03/12/18 10:00 76 20 113/65 (81) 98 Ventilator 03/12/18 08:00 99.5 99.5 03/11/18 12:00 2.0 Lungs: Clear Cardiovascular: S1, S2 Abdomen: Soft Extremities: Other (EDEMA) Skin: Warm Labs Laboratory Tests Test 03/11/18 05:30 03/11/18 08:45 03/11/18 08:55 03/11/18 17:01 White Blood Count 9.1 x10^3/uL (4.0-11.0) Red Blood Count 3.78 x10^6/uL (4.30-5.70) Hemoglobin 11.3 g/dL (13.0-17.5) Hematocrit 33.9 % (39.0-53.0) Mean Corpuscular Volume 90 fL (79-100) Mean Corpuscular Hemoglobin 30 pg (25-35) Mean Corpuscular Hemoglobin Concent 33 g/dL (31-37) Red Cell Distribution Width 13.8 % (11.5-14.5) Platelet Count 247 x10^3/uL (140-400) Neutrophils (%) (Auto) 72 % (31-73) Lymphocytes (%) (Auto) 17 % (24-48) Monocytes (%) (Auto) 9 % (0-9) Eosinophils (%) (Auto) 2 % (0-3) Basophils (%) (Auto) 0 % (0-3) Neutrophils # (Auto) 6.5 x10^3uL (1.8-7.7) Lymphocytes # (Auto) 1.6 x10^3/uL (1.0-4.8) Monocytes # (Auto) 0.8 x10^3/uL (0.0-1.1) Eosinophils # (Auto) 0.2 x10^3/uL (0.0-0.7) Basophils # (Auto) 0.0 x10^3/uL (0.0-0.2) Sodium Level 140 mmol/L (136-145) Potassium Level 3.3 mmol/L (3.5-5.1) Chloride Level 104 mmol/L (98-107) Carbon Dioxide Level 27 mmol/L (21-32) Anion Gap 9 (6-14) Blood Urea Nitrogen 19 mg/dL (8-26) Creatinine 1.2 mg/dL (0.7-1.3) Estimated GFR (Cockcroft-Gault) 68.5 Glucose Level 118 mg/dL (70-99) Calcium Level 8.5 mg/dL (8.5-10.1) Phosphorus Level 2.0 mg/dL (2.6-4.7) Magnesium Level 1.6 mg/dL (1.8-2.4) Troponin I Quantitative 0.039 ng/mL (0.000-0.055) O2 Saturation 95 % (92-99) Arterial Blood pH 7.49 (7.35-7.45) Arterial Blood pCO2 at Patient Temp 29 mmHg (35-46) Arterial Blood pO2 at Patient Temp 75 mmHg (85-108) Arterial Blood HCO3 22 mmol/L (21-28) Arterial Blood Base Excess -1 mmol/L (-3-3) FiO2 60 Glucose (Fingerstick) 115 mg/dL (70-99) 86 mg/dL (70-99) Test 03/12/18 04:30 03/12/18 04:36 03/12/18 07:35 White Blood Count 9.1 x10^3/uL (4.0-11.0) Red Blood Count 3.44 x10^6/uL (4.30-5.70) Hemoglobin 10.4 g/dL (13.0-17.5) Hematocrit 31.0 % (39.0-53.0) Mean Corpuscular Volume 90 fL (79-100) Mean Corpuscular Hemoglobin 30 pg (25-35) Mean Corpuscular Hemoglobin Concent 34 g/dL (31-37) Red Cell Distribution Width 13.5 % (11.5-14.5) Platelet Count 255 x10^3/uL (140-400) Neutrophils (%) (Auto) 77 % (31-73) Lymphocytes (%) (Auto) 12 % (24-48) Monocytes (%) (Auto) 7 % (0-9) Eosinophils (%) (Auto) 3 % (0-3) Basophils (%) (Auto) 1 % (0-3) Neutrophils # (Auto) 7.0 x10^3uL (1.8-7.7) Lymphocytes # (Auto) 1.1 x10^3/uL (1.0-4.8) Monocytes # (Auto) 0.6 x10^3/uL (0.0-1.1) Eosinophils # (Auto) 0.3 x10^3/uL (0.0-0.7) Basophils # (Auto) 0.1 x10^3/uL (0.0-0.2) Sodium Level 138 mmol/L (136-145) Potassium Level 3.4 mmol/L (3.5-5.1) Chloride Level 104 mmol/L (98-107) Carbon Dioxide Level 27 mmol/L (21-32) Anion Gap 7 (6-14) Blood Urea Nitrogen 14 mg/dL (8-26) Creatinine 1.0 mg/dL (0.7-1.3) Estimated GFR (Cockcroft-Gault) 84.5 BUN/Creatinine Ratio 14 (6-20) Glucose Level 126 mg/dL (70-99) Calcium Level 8.2 mg/dL (8.5-10.1) Phosphorus Level 4.0 mg/dL (2.6-4.7) Magnesium Level 2.1 mg/dL (1.8-2.4) Total Bilirubin 0.5 mg/dL (0.2-1.0) Aspartate Amino Transf (AST/SGOT) 33 U/L (15-37) Alanine Aminotransferase (ALT/SGPT) 45 U/L (16-63) Alkaline Phosphatase 59 U/L (46-116) Total Protein 6.3 g/dL (6.4-8.2) Albumin 1.8 g/dL (3.4-5.0) Albumin/Globulin Ratio 0.4 (1.0-1.7) Triglycerides Level 265 mg/dL (0-150) Glucose (Fingerstick) 121 mg/dL (70-99) O2 Saturation 90 % (92-99) Arterial Blood pH 7.38 (7.35-7.45) Arterial Blood pCO2 at Patient Temp 41 mmHg (35-46) Arterial Blood pO2 at Patient Temp 61 mmHg (85-108) Arterial Blood HCO3 24 mmol/L (21-28) Arterial Blood Base Excess -1 mmol/L (-3-3) FiO2 Laboratory Tests Test 03/11/18 17:01 03/12/18 04:30 03/12/18 04:36 03/12/18 07:35 Glucose (Fingerstick) 86 mg/dL (70-99) 121 mg/dL (70-99) White Blood Count 9.1 x10^3/uL (4.0-11.0) Red Blood Count 3.44 x10^6/uL (4.30-5.70) Hemoglobin 10.4 g/dL (13.0-17.5) Hematocrit 31.0 % (39.0-53.0) Mean Corpuscular Volume 90 fL (79-100) Mean Corpuscular Hemoglobin 30 pg (25-35) Mean Corpuscular Hemoglobin Concent 34 g/dL (31-37) Red Cell Distribution Width 13.5 % (11.5-14.5) Platelet Count 255 x10^3/uL (140-400) Neutrophils (%) (Auto) 77 % (31-73) Lymphocytes (%) (Auto) 12 % (24-48) Monocytes (%) (Auto) 7 % (0-9) Eosinophils (%) (Auto) 3 % (0-3) Basophils (%) (Auto) 1 % (0-3) Neutrophils # (Auto) 7.0 x10^3uL (1.8-7.7) Lymphocytes # (Auto) 1.1 x10^3/uL (1.0-4.8) Monocytes # (Auto) 0.6 x10^3/uL (0.0-1.1) Eosinophils # (Auto) 0.3 x10^3/uL (0.0-0.7) Basophils # (Auto) 0.1 x10^3/uL (0.0-0.2) Sodium Level 138 mmol/L (136-145) Potassium Level 3.4 mmol/L (3.5-5.1) Chloride Level 104 mmol/L (98-107) Carbon Dioxide Level 27 mmol/L (21-32) Anion Gap 7 (6-14) Blood Urea Nitrogen 14 mg/dL (8-26) Creatinine 1.0 mg/dL (0.7-1.3) Estimated GFR (Cockcroft-Gault) 84.5 BUN/Creatinine Ratio 14 (6-20) Glucose Level 126 mg/dL (70-99) Calcium Level 8.2 mg/dL (8.5-10.1) Phosphorus Level 4.0 mg/dL (2.6-4.7) Magnesium Level 2.1 mg/dL (1.8-2.4) Total Bilirubin 0.5 mg/dL (0.2-1.0) Aspartate Amino Transf (AST/SGOT) 33 U/L (15-37) Alanine Aminotransferase (ALT/SGPT) 45 U/L (16-63) Alkaline Phosphatase 59 U/L (46-116) Total Protein 6.3 g/dL (6.4-8.2) Albumin 1.8 g/dL (3.4-5.0) Albumin/Globulin Ratio 0.4 (1.0-1.7) Triglycerides Level 265 mg/dL (0-150) O2 Saturation 90 % (92-99) Arterial Blood pH 7.38 (7.35-7.45) Arterial Blood pCO2 at Patient Temp 41 mmHg (35-46) Arterial Blood pO2 at Patient Temp 61 mmHg (85-108) Arterial Blood HCO3 24 mmol/L (21-28) Arterial Blood Base Excess -1 mmol/L (-3-3) FiO2 Comments CTA CHEST REVIEWED 1. Life support devices in appropriate position. 2. No large central pulmonary embolus. Lobar, segmental, subsegmental pulmonary arteries cannot be evaluated due to limited contrast opacification. 3. Moderate consolidations with air bronchograms in the bilateral lower lobes. Considerations include aspiration, pneumonia, or atelectasis. 4. Persistent diverticulitis of the sigmoid colon. There is a small incompletely formed probable peridiverticular abscess. 5. Fatty infiltration of the liver. Electronically signed by: Akbar Naqvi MD (03/11/2018 11:21 AM) [id number] CXR 03/12 reviewed Mild left basal atelectasis Impression . IMPRESSION: 1. Acute respiratory failure, status post code blue. Etiology likely ALI/EARLY ARDS due to diverticulitis 2. Status post code blue patient with spontaneous return of circulation after one defibrillation and 2 minutes of chest compressions. 3. Septic shock.off pressor 4. Diverticulitis leading to septic shock. ? abscess 5. Metabolic acidosis secondary to code blue, increased work of breathing and renal insufficiency. improved 6. Morbid obesity. 7. Leukocytosis. 8. Obstructive sleep apnea. 9. Possible aspiration pneumonia. 10. No central PE by CTA, basal atelectasis/ consolidation Plan . D/W IN DETAIL SLOWLY IMPROVING OXYGENATION CHANGED LOVENOX TO DVT PROPHYLAXIS DOSE NO SHUNT ON ECHO NEG VENOUS DOPPLER ANTIBX PER ID MAY NEED ABDOMINAL DRAIN/ F/U CT IN FEW DAYS STARTED ON TPN GI PROPH D/W RN/ ENTIRE FAMILY WILL START REDUCING PEEP SLOWLY FROM AM CCT 30 MIN LOY TIJERINA MD Mar 12, 2018 11:11
--- NOTE | 2018-03-12 11:52 | PDOC ---
PROGRESS NOTES Chief Complaint Chief Complaint status post cardiac arrest, nonsustained V. 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 replete K cc time 35min, talked to at bedside History of Present Illness History of Present Illness Admitted for perforation of the diverticulitis, first episode of diverticulitis. But about 6:15 AM Sunday, found on the ground, unresponsive, nonsustained V. tach, 2 minutes of CPR, with ROSC ICU, intubated, sedated, vent slightly down to 50%, PEEP 8 Sedated C-collar on. Oliguric after 2 boluses of normal saline on , seems to be better now NEeded levophed sunday - but off pressors sunday talked to at bedside for a long time, who is not happy that someone told her that pt had heart attack i printed out the echo result to her and explained some possibilities for the CHF CT 03/11 showed diverticulitis, 2.4cm abscess Vitals Vitals Vital Signs Date Time Temp Pulse Resp B/P (MAP) Pulse Ox O2 Delivery O2 Flow Rate FiO2 03/12/18 11:13 98 Ventilator 03/12/18 11:00 79 18 110/67 (81) 03/12/18 08:00 99.5 99.5 03/11/18 12:00 2.0 Physical Exam Physical Exam GENERAL: Intubated alert with mitt left hand HENT: Pupils equal, nml conj. OGT & ETT NECK: no JVD LUNGS: CTA CV: Distant heart tones ABDOMEN:n Obese, hypoactive bowel sounds, soft, no grimace to palpation : Galvan in place EXT: No gross edema or cyanosis SKIN: warm without rash Right PICC line - clean General: No acute distress Heart: Regular rate, Normal S1, Normal S2 Lungs: Clear Abdomen: Soft Extremities: No edema Skin: Other (warm, dry) Labs LABS Laboratory Tests Test 03/11/18 17:01 03/12/18 04:30 03/12/18 04:36 03/12/18 07:35 Glucose (Fingerstick) 86 mg/dL (70-99) 121 mg/dL (70-99) White Blood Count 9.1 x10^3/uL (4.0-11.0) Red Blood Count 3.44 x10^6/uL (4.30-5.70) Hemoglobin 10.4 g/dL (13.0-17.5) Hematocrit 31.0 % (39.0-53.0) Mean Corpuscular Volume 90 fL (79-100) Mean Corpuscular Hemoglobin 30 pg (25-35) Mean Corpuscular Hemoglobin Concent 34 g/dL (31-37) Red Cell Distribution Width 13.5 % (11.5-14.5) Platelet Count 255 x10^3/uL (140-400) Neutrophils (%) (Auto) 77 % (31-73) Lymphocytes (%) (Auto) 12 % (24-48) Monocytes (%) (Auto) 7 % (0-9) Eosinophils (%) (Auto) 3 % (0-3) Basophils (%) (Auto) 1 % (0-3) Neutrophils # (Auto) 7.0 x10^3uL (1.8-7.7) Lymphocytes # (Auto) 1.1 x10^3/uL (1.0-4.8) Monocytes # (Auto) 0.6 x10^3/uL (0.0-1.1) Eosinophils # (Auto) 0.3 x10^3/uL (0.0-0.7) Basophils # (Auto) 0.1 x10^3/uL (0.0-0.2) Sodium Level 138 mmol/L (136-145) Potassium Level 3.4 mmol/L (3.5-5.1) Chloride Level 104 mmol/L (98-107) Carbon Dioxide Level 27 mmol/L (21-32) Anion Gap 7 (6-14) Blood Urea Nitrogen 14 mg/dL (8-26) Creatinine 1.0 mg/dL (0.7-1.3) Estimated GFR (Cockcroft-Gault) 84.5 BUN/Creatinine Ratio 14 (6-20) Glucose Level 126 mg/dL (70-99) Calcium Level 8.2 mg/dL (8.5-10.1) Phosphorus Level 4.0 mg/dL (2.6-4.7) Magnesium Level 2.1 mg/dL (1.8-2.4) Total Bilirubin 0.5 mg/dL (0.2-1.0) Aspartate Amino Transf (AST/SGOT) 33 U/L (15-37) Alanine Aminotransferase (ALT/SGPT) 45 U/L (16-63) Alkaline Phosphatase 59 U/L (46-116) Total Protein 6.3 g/dL (6.4-8.2) Albumin 1.8 g/dL (3.4-5.0) Albumin/Globulin Ratio 0.4 (1.0-1.7) Triglycerides Level 265 mg/dL (0-150) O2 Saturation 90 % (92-99) Arterial Blood pH 7.38 (7.35-7.45) Arterial Blood pCO2 at Patient Temp 41 mmHg (35-46) Arterial Blood pO2 at Patient Temp 61 mmHg (85-108) Arterial Blood HCO3 24 mmol/L (21-28) Arterial Blood Base Excess -1 mmol/L (-3-3) FiO2 Assessment and Plan Assessmemt and Plan Problems Medical Problems: (1) Diverticulitis of colon with perforation Status: Acute Comment Review of Relevant I have reviewed the following items kalin (where applicable) has been applied. Labs Laboratory Tests Test 03/11/18 05:30 03/11/18 08:45 03/11/18 08:55 03/11/18 17:01 White Blood Count 9.1 x10^3/uL (4.0-11.0) Red Blood Count 3.78 x10^6/uL (4.30-5.70) Hemoglobin 11.3 g/dL (13.0-17.5) Hematocrit 33.9 % (39.0-53.0) Mean Corpuscular Volume 90 fL (79-100) Mean Corpuscular Hemoglobin 30 pg (25-35) Mean Corpuscular Hemoglobin Concent 33 g/dL (31-37) Red Cell Distribution Width 13.8 % (11.5-14.5) Platelet Count 247 x10^3/uL (140-400) Neutrophils (%) (Auto) 72 % (31-73) Lymphocytes (%) (Auto) 17 % (24-48) Monocytes (%) (Auto) 9 % (0-9) Eosinophils (%) (Auto) 2 % (0-3) Basophils (%) (Auto) 0 % (0-3) Neutrophils # (Auto) 6.5 x10^3uL (1.8-7.7) Lymphocytes # (Auto) 1.6 x10^3/uL (1.0-4.8) Monocytes # (Auto) 0.8 x10^3/uL (0.0-1.1) Eosinophils # (Auto) 0.2 x10^3/uL (0.0-0.7) Basophils # (Auto) 0.0 x10^3/uL (0.0-0.2) Sodium Level 140 mmol/L (136-145) Potassium Level 3.3 mmol/L (3.5-5.1) Chloride Level 104 mmol/L (98-107) Carbon Dioxide Level 27 mmol/L (21-32) Anion Gap 9 (6-14) Blood Urea Nitrogen 19 mg/dL (8-26) Creatinine 1.2 mg/dL (0.7-1.3) Estimated GFR (Cockcroft-Gault) 68.5 Glucose Level 118 mg/dL (70-99) Calcium Level 8.5 mg/dL (8.5-10.1) Phosphorus Level 2.0 mg/dL (2.6-4.7) Magnesium Level 1.6 mg/dL (1.8-2.4) Troponin I Quantitative 0.039 ng/mL (0.000-0.055) O2 Saturation 95 % (92-99) Arterial Blood pH 7.49 (7.35-7.45) Arterial Blood pCO2 at Patient Temp 29 mmHg (35-46) Arterial Blood pO2 at Patient Temp 75 mmHg (85-108) Arterial Blood HCO3 22 mmol/L (21-28) Arterial Blood Base Excess -1 mmol/L (-3-3) FiO2 60 Glucose (Fingerstick) 115 mg/dL (70-99) 86 mg/dL (70-99) Test 03/12/18 04:30 03/12/18 04:36 03/12/18 07:35 White Blood Count 9.1 x10^3/uL (4.0-11.0) Red Blood Count 3.44 x10^6/uL (4.30-5.70) Hemoglobin 10.4 g/dL (13.0-17.5) Hematocrit 31.0 % (39.0-53.0) Mean Corpuscular Volume 90 fL (79-100) Mean Corpuscular Hemoglobin 30 pg (25-35) Mean Corpuscular Hemoglobin Concent 34 g/dL (31-37) Red Cell Distribution Width 13.5 % (11.5-14.5) Platelet Count 255 x10^3/uL (140-400) Neutrophils (%) (Auto) 77 % (31-73) Lymphocytes (%) (Auto) 12 % (24-48) Monocytes (%) (Auto) 7 % (0-9) Eosinophils (%) (Auto) 3 % (0-3) Basophils (%) (Auto) 1 % (0-3) Neutrophils # (Auto) 7.0 x10^3uL (1.8-7.7) Lymphocytes # (Auto) 1.1 x10^3/uL (1.0-4.8) Monocytes # (Auto) 0.6 x10^3/uL (0.0-1.1) Eosinophils # (Auto) 0.3 x10^3/uL (0.0-0.7) Basophils # (Auto) 0.1 x10^3/uL (0.0-0.2) Sodium Level 138 mmol/L (136-145) Potassium Level 3.4 mmol/L (3.5-5.1) Chloride Level 104 mmol/L (98-107) Carbon Dioxide Level 27 mmol/L (21-32) Anion Gap 7 (6-14) Blood Urea Nitrogen 14 mg/dL (8-26) Creatinine 1.0 mg/dL (0.7-1.3) Estimated GFR (Cockcroft-Gault) 84.5 BUN/Creatinine Ratio 14 (6-20) Glucose Level 126 mg/dL (70-99) Calcium Level 8.2 mg/dL (8.5-10.1) Phosphorus Level 4.0 mg/dL (2.6-4.7) Magnesium Level 2.1 mg/dL (1.8-2.4) Total Bilirubin 0.5 mg/dL (0.2-1.0) Aspartate Amino Transf (AST/SGOT) 33 U/L (15-37) Alanine Aminotransferase (ALT/SGPT) 45 U/L (16-63) Alkaline Phosphatase 59 U/L (46-116) Total Protein 6.3 g/dL (6.4-8.2) Albumin 1.8 g/dL (3.4-5.0) Albumin/Globulin Ratio 0.4 (1.0-1.7) Triglycerides Level 265 mg/dL (0-150) Glucose (Fingerstick) 121 mg/dL (70-99) O2 Saturation 90 % (92-99) Arterial Blood pH 7.38 (7.35-7.45) Arterial Blood pCO2 at Patient Temp 41 mmHg (35-46) Arterial Blood pO2 at Patient Temp 61 mmHg (85-108) Arterial Blood HCO3 24 mmol/L (21-28) Arterial Blood Base Excess -1 mmol/L (-3-3) FiO2 Laboratory Tests Test 03/11/18 17:01 03/12/18 04:30 03/12/18 04:36 03/12/18 07:35 Glucose (Fingerstick) 86 mg/dL (70-99) 121 mg/dL (70-99) White Blood Count 9.1 x10^3/uL (4.0-11.0) Red Blood Count 3.44 x10^6/uL (4.30-5.70) Hemoglobin 10.4 g/dL (13.0-17.5) Hematocrit 31.0 % (39.0-53.0) Mean Corpuscular Volume 90 fL (79-100) Mean Corpuscular Hemoglobin 30 pg (25-35) Mean Corpuscular Hemoglobin Concent 34 g/dL (31-37) Red Cell Distribution Width 13.5 % (11.5-14.5) Platelet Count 255 x10^3/uL (140-400) Neutrophils (%) (Auto) 77 % (31-73) Lymphocytes (%) (Auto) 12 % (24-48) Monocytes (%) (Auto) 7 % (0-9) Eosinophils (%) (Auto) 3 % (0-3) Basophils (%) (Auto) 1 % (0-3) Neutrophils # (Auto) 7.0 x10^3uL (1.8-7.7) Lymphocytes # (Auto) 1.1 x10^3/uL (1.0-4.8) Monocytes # (Auto) 0.6 x10^3/uL (0.0-1.1) Eosinophils # (Auto) 0.3 x10^3/uL (0.0-0.7) Basophils # (Auto) 0.1 x10^3/uL (0.0-0.2) Sodium Level 138 mmol/L (136-145) Potassium Level 3.4 mmol/L (3.5-5.1) Chloride Level 104 mmol/L (98-107) Carbon Dioxide Level 27 mmol/L (21-32) Anion Gap 7 (6-14) Blood Urea Nitrogen 14 mg/dL (8-26) Creatinine 1.0 mg/dL (0.7-1.3) Estimated GFR (Cockcroft-Gault) 84.5 BUN/Creatinine Ratio 14 (6-20) Glucose Level 126 mg/dL (70-99) Calcium Level 8.2 mg/dL (8.5-10.1) Phosphorus Level 4.0 mg/dL (2.6-4.7) Magnesium Level 2.1 mg/dL (1.8-2.4) Total Bilirubin 0.5 mg/dL (0.2-1.0) Aspartate Amino Transf (AST/SGOT) 33 U/L (15-37) Alanine Aminotransferase (ALT/SGPT) 45 U/L (16-63) Alkaline Phosphatase 59 U/L (46-116) Total Protein 6.3 g/dL (6.4-8.2) Albumin 1.8 g/dL (3.4-5.0) Albumin/Globulin Ratio 0.4 (1.0-1.7) Triglycerides Level 265 mg/dL (0-150) O2 Saturation 90 % (92-99) Arterial Blood pH 7.38 (7.35-7.45) Arterial Blood pCO2 at Patient Temp 41 mmHg (35-46) Arterial Blood pO2 at Patient Temp 61 mmHg (85-108) Arterial Blood HCO3 24 mmol/L (21-28) Arterial Blood Base Excess -1 mmol/L (-3-3) FiO2 Microbiology 03/09/18 Blood Culture - Preliminary, Resulted NO GROWTH AFTER 2 DAYS Medications Current Medications Sodium Chloride (Normal Saline Flush) 3 ml QSHIFT PRN IV AFTER MEDS AND BLOOD DRAWS; Start 03/07/18 at 11:00 Sodium Chloride 1,000 ml @ 1,000 mls/hr Q1H IV Last administered on 03/07/18at 11:32; Start 03/07/18 at 11:00; Stop 03/07/18 at 11:59; Status DC Iohexol (Omnipaque 300 Mg/ml) 75 ml 1X ONCE IV Last administered on 03/07/18at 12:46; Start 03/07/18 at 11:15; Stop 03/07/18 at 11:16; Status DC Info (CONTRAST GIVEN -- Rx MONITORING) 1 each PRN DAILY PRN MC SEE COMMENTS; Start 03/07/18 at 11:15; Stop 03/09/18 at 11:14; Status DC Sodium Chloride 1,000 ml @ 1,000 mls/hr 1X ONCE IV Last administered on at 12:37; Start 03/07/18 at 12:00; Stop 03/07/18 at 12:59; Status DC Fentanyl Citrate (Fentanyl 2ml Vial) 50 mcg 1X ONCE IV Last administered on 03/07/18at 13:07; Start 03/07/18 at 13:00; Stop 03/07/18 at 13:01; Status DC Metronidazole 100 ml @ 100 mls/hr 1X ONCE IV ; Start 03/07/18 at 13:30; Stop at 14:29; Status DC Ciprofloxacin/ Dextrose 200 ml @ 200 mls/hr ONCE STAT IV Last administered on 03/07/18at 13:42; Start 03/07/18 at 13:12; Stop 03/07/18 at 14:11; Status DC Piperacillin Sod/ Tazobactam Sod 3.375 gm/Sodium Chloride 50 ml @ 100 mls/hr 1X ONCE IV Last administered on 03/07/18at 14:43; Start 03/07/18 at 14:30; Stop 03/07/18 at 14:59; Status DC Diphenhydramine HCl (Benadryl) 50 mg 1X ONCE IVP Last administered on at 14:33; Start 03/07/18 at 14:15; Stop 03/07/18 at 14:16; Status DC Fentanyl Citrate (Fentanyl 2ml Vial) 25 mcg 1X ONCE IV ; Start 03/07/18 at 14:15 ; Stop 03/07/18 at 14:16; Status Cancel Morphine Sulfate (Morphine Sulfate) 4 mg 1X ONCE IV Last administered on at 14:35; Start 03/07/18 at 14:30; Stop 03/07/18 at 14:31; Status DC Ondansetron HCl (Zofran) 4 mg PRN Q8HRS PRN IV NAUSEA/VOMITING; Start 03/07/18 at 14:30; Stop 03/08/18 at 14:29; Status DC Morphine Sulfate (Morphine Sulfate) 4 mg PRN Q2HR PRN IV PAIN Last administered on 03/08/18at 08:20; Start 03/07/18 at 14:30; Stop 03/08/18 at 14:29; Status DC Piperacillin Sod/ Tazobactam Sod 3.375 gm/Sodium Chloride 50 ml @ 100 mls/hr Q6HRS IV Last administered on 03/12/18at 11:47; Start 03/07/18 at 18:00 Metronidazole 100 ml @ 100 mls/hr Q8HRS IV Last administered on 03/09/18at 11:19 ; Start 03/07/18 at 22:00; Stop 03/09/18 at 15:10; Status DC Sodium Chloride 500 ml @ 500 mls/hr 1X ONCE IV Last administered on 03/07/18at 16:45; Start 03/07/18 at 16:45; Stop 03/07/18 at 17:44; Status DC Amino Acids/ Glycerin/ Electrolytes 1,000 ml @ 80 mls/hr [id number] IV Last administered on 03/11/18at 07:47; Start 03/07/18 at 16:45; Stop 03/11/18 at 20:21; Status DC Acetaminophen (Tylenol) 650 mg PRN Q6HRS PRN PO fever ; Start 03/07/18 at 18:00 Pantoprazole Sodium (PROTONIX VIAL for IV PUSH) 40 mg DAILYAC IVP Last administered on 03/12/18at 10:41; Start 03/08/18 at 07:45 Morphine Sulfate (Morphine Sulfate) 4 mg PRN Q2HR PRN IV MODRATE-SEVERE PAIN 2ND CHOICE Last administered on 03/09/18at 04:26; Start 03/08/18 at 14:45 Lorazepam (Ativan) 1 mg PRN Q4HRS PRN IV ANXIETY / AGITATION Last administered on 03/08/18at 21:41; Start 03/08/18 at 20:30 Ondansetron HCl (Zofran) 4 mg PRN Q6HRS PRN IV NAUSEA/VOMITING 1ST CHOICE Last administered on 03/09/18at 02:07; Start 03/09/18 at 02:00 Etomidate (Amidate) 20 mg STK-MED ONCE IV ; Start 03/09/18 at 06:55; Stop at 06:56; Status DC Norepinephrine Bitartrate 250 ml @ As Directed STK-MED ONCE IV ; Start 03/09/18 at 06:55; Stop 03/09/18 at 06:56; Status DC Midazolam HCl (Versed) 5 mg STK-MED ONCE .ROUTE ; Start 03/09/18 at 06:55; Stop 03/09/18 at 06:56; Status DC Fentanyl Citrate (Fentanyl 2ml Vial) 100 mcg STK-MED ONCE .ROUTE ; Start at 06:55; Stop 03/09/18 at 06:56; Status DC Succinylcholine Chloride (Anectine) 200 mg STK-MED ONCE .ROUTE ; Start 03/09/18 at 06:56; Stop 03/09/18 at 06:57; Status DC Fentanyl Citrate 30 ml @ 0 mls/hr CONT PRN IV PER PROTOCOL Last administered on 03/12/18at 05:51; Start 03/09/18 at 07:00 Fentanyl Citrate (Fentanyl 2ml Vial) 25 mcg PRN Q1HR PRN IV MILD PAIN; Start at 07:00 Fentanyl Citrate (Fentanyl 2ml Vial) 50 mcg PRN Q1HR PRN IV MOD TO SEVERE PAIN ; Start 03/09/18 at 07:00 Chlorhexidine Gluconate (Peridex) 15 ml BID MM Last administered on 03/12/18at 10 :41; Start 03/09/18 at 09:00 Midazolam HCl (Versed) 2 mg PRN Q30MIN PRN IV SEDATION; Start 03/09/18 at 07:00 ; Stop 03/10/18 at 10:26; Status DC Midazolam HCl 100 ml @ 0 mls/hr CONT PRN IV PER PROTOCOL Last administered on at 21:43; Start 03/09/18 at 07:00 Enoxaparin Sodium (Lovenox 40mg Syringe) 40 mg Q12H SQ Last administered on 03/10at 09:31; Start 03/09/18 at 09:00; Stop 03/10/18 at 12:01; Status DC Sodium Chloride 1,000 ml @ 75 mls/hr [id number] IV Last administered on 03/12/18at 11:47; Start 03/09/18 at 10:15 Sodium Chloride 1,000 ml @ 1,000 mls/hr 1X ONCE IV Last administered on at 10:15; Start 03/09/18 at 10:15; Stop 03/09/18 at 11:14; Status DC Norepinephrine Bitartrate 250 ml @ As Directed STK-MED ONCE IV ; Start 03/09/18 at 10:37; Stop 03/09/18 at 10:38; Status DC Phenylephrine HCl 20 mg/Sodium Chloride 252 ml @ 22.68 mls/ hr 1X ONCE IV ; Start 03/09/18 at 10:45; Stop 03/09/18 at 21:51; Status DC Iohexol (Omnipaque 300 Mg/ml) 75 ml 1X ONCE IV ; Start 03/09/18 at 11:30; Stop 03/09/18 at 11:35; Status DC Micafungin Sodium 100 mg/Dextrose 100 ml @ 100 mls/hr Q24H IV Last administered on 03/11/18at 16:57; Start 03/09/18 at 16:00 Linezolid/Dextrose 300 ml @ 300 mls/hr Q12H IV Last administered on 03/12/18at 04:31; Start 03/09/18 at 17:00 Norepinephrine Bitartrate 250 ml @ 1.875 mls/ hr CONT PRN IV SEE I/O RECORD Last administered on 03/09/18at 16:18; Start 03/09/18 at 16:00 Furosemide (Lasix) 40 mg 1X ONCE IVP Last administered on 03/10/18at 08:49; Start 03/10/18 at 09:00; Stop 03/10/18 at 09:01; Status DC Perflutren Protein Type A Microsphe (Optison) 0.66 mg STK-MED ONCE IV ; Start at 10:23; Stop 03/10/18 at 10:25; Status DC Enoxaparin Sodium (Lovenox Per Pharmacy Treatment Dosing) 1 each PRN DAILY PRN MC SEE COMMENTS; Start 03/10/18 at 12:00; Stop 03/11/18 at 12:50; Status DC Enoxaparin Sodium (Lovenox 150mg Syringe) 130 mg Q12H SQ Last administered on at 07:48; Start 03/10/18 at 21:00; Stop 03/11/18 at 12:51; Status DC Enoxaparin Sodium (Lovenox 100mg Syringe) 90 mg 1X ONCE SQ Last administered on 03/10/18at 13:53; Start 03/10/18 at 12:30; Stop 03/10/18 at 12:31; Status DC Perflutren Protein Type A Microsphe (Optison) 0.66 mg 1X ONCE IV Last administered on 03/10/18at 12:55; Start 03/10/18 at 13:00; Stop 03/10/18 at 13:01; Status DC Iohexol (Omnipaque 300 Mg/ml) 75 ml 1X ONCE IV Last administered on 03/11/18at 10:00; Start 03/11/18 at 09:00; Stop 03/11/18 at 09:01; Status DC Info (CONTRAST GIVEN -- Rx MONITORING) 1 each PRN DAILY PRN MC SEE COMMENTS; Start 03/11/18 at 09:00; Stop 03/13/18 at 08:59 Norepinephrine Bitartrate (Levophed 8mg/ 250ml Premix Drip) 8 mg STK-MED ONCE IV ; Start 03/09/18 at 07:00; Stop 03/11/18 at 08:58; Status DC Insulin Human Lispro (HumaLOG) 0-5 UNITS TIDWMEALS SQ ; Start 03/11/18 at 12:00 Dextrose (Dextrose 50%-Water Syringe) 12.5 gm PRN Q15MIN PRN IV SEE COMMENTS; Start 03/11/18 at 09:15 Potassium Chloride/Water 50 ml @ 50 mls/hr 1X ONCE IV Last administered on 03/11at 09:43; Start 03/11/18 at 10:00; Stop 03/11/18 at 10:59; Status DC Info (Anti-Coagulation Monitoring By Pharmacy) 1 each PRN DAILY PRN MC SEE COMMENTS; Start 03/11/18 at 09:30; Stop 03/11/18 at 12:51; Status DC Info (Tpn Per Pharmacy) 1 each PRN DAILY PRN MC SEE COMMENTS Last administered on 03/12/18at 10:18; Start 03/11/18 at 11:15 Magnesium Sulfate 50 ml @ 25 mls/hr 1X ONCE IV Last administered on 03/11/18at 15:09; Start 03/11/18 at 16:00; Stop 03/11/18 at 17:59; Status DC Potassium Phosphate 13.6 mmol/Dextrose 104.5333 ml @ 52.267 m... ONCE ONCE IV Last administered on 03/11/18at 17:11; Start 03/11/18 at 18:00; Stop 03/11/18 at 19:59; Status DC Norepinephrine Bitartrate (Levophed 8mg/ 250ml Premix Drip) 8 mg STK-MED ONCE IV ; Start 03/09/18 at 11:00; Stop 03/11/18 at 12:37; Status DC Enoxaparin Sodium (Lovenox 40mg Syringe) 40 mg Q12HR SQ Last administered on 03/12/18at 10:41; Start 03/11/18 at 21:00 Sodium Chloride 90 meq/Potassium Chloride 50 meq/ Potassium Phosphate 13.6 mmol/ Magnesium Sulfate 10 meq/ Multivitamins 10 ml/Chromium/ Copper/Manganese/ Seleni /Zn 1 ml/ Total Parenteral Nutrition/Amino Acids/Dextrose/ Fat Emulsion Intravenous 1,800 ml @ 75 mls/hr TPN CONT IV Last administered on 03/11/18at 21 :44; Start 03/11/18 at 22:00; Stop 03/12/18 at 21:59 Potassium Chloride/Water 50 ml @ 50 mls/hr 1X ONCE IV Last administered on 03/12at 10:40; Start 03/12/18 at 09:30; Stop 03/12/18 at 10:29; Status DC Sodium Chloride 90 meq/Potassium Acetate 70 meq/ Potassium Phosphate 10 mmol/ Magnesium Sulfate 10 meq/ Multivitamins 10 ml/Chromium/ Copper/Manganese/ Seleni /Zn 1 ml/ Total Parenteral Nutrition/Amino Acids/Dextrose/ Fat Emulsion Intravenous 1,800 ml @ 75 mls/hr TPN CONT IV ; Start 03/12/18 at 22:00; Stop at 22:00; Status DC Sodium Chloride 90 meq/Potassium Chloride 70 meq/ Potassium Phosphate 10 mmol/ Magnesium Sulfate 10 meq/ Multivitamins 10 ml/Chromium/ Copper/Manganese/ Seleni /Zn 1 ml/ Total Parenteral Nutrition/Amino Acids/Dextrose/ Fat Emulsion Intravenous 1,800 ml @ 75 mls/hr TPN CONT IV ; Start 03/12/18 at 22:00; Stop at 21:59 Vitals/I & O Vital Sign - Last 24 Hours 03/11/18 03/11/18 03/11/18 03/11/18 12:00 12:00 13:00 13:01 Pulse 95 87 Resp 25 22 B/P (MAP) 85/54 (64) Pulse Ox 95 93 94 O2 Delivery Ventilator Mechanical Ventilator Ventilator Ventilator O2 Flow Rate 2.0 03/11/18 03/11/18 03/11/18 03/11/18 14:00 15:00 15:09 15:13 Pulse 85 78 Resp 18 20 18 B/P (MAP) 95/64 (74) 106/64 (78) Pulse Ox 96 97 97 97 O2 Delivery Ventilator Ventilator Ventilator Ventilator 03/11/18 03/11/18 03/11/18 03/11/18 16:00 16:00 17:00 17:21 Temp 99.4 99.4 Pulse 82 77 Resp 18 18 B/P (MAP) 112/71 (85) 100/57 (71) Pulse Ox 98 98 97 O2 Delivery Mechanical Ventilator Ventilator Ventilator 03/11/18 03/11/18 03/11/18 03/11/18 18:00 19:00 19:38 19:53 Pulse 80 78 Resp 18 18 B/P (MAP) 107/67 (80) 105/60 (75) Pulse Ox 98 98 98 O2 Delivery Ventilator Ventilator Mechanical Ventilator Ventilator 03/11/18 03/11/18 03/11/18 03/11/18 20:00 21:00 21:28 22:00 Temp 100.0 100.0 Pulse 88 97 89 Resp 18 23 18 B/P (MAP) 112/65 (81) 122/79 (93) 96/61 (73) Pulse Ox 95 91 96 92 O2 Delivery Ventilator Ventilator Ventilator Ventilator 03/11/18 03/11/18 03/11/18 03/12/18 23:00 23:05 23:30 00:00 Temp 99.7 99.7 Pulse 81 79 Resp 18 18 18 B/P (MAP) 96/51 (66) 109/60 (76) Pulse Ox 94 95 95 95 O2 Delivery Ventilator Ventilator Ventilator Ventilator 03/12/18 03/12/18 03/12/18 03/12/18 00:00 01:00 01:30 02:00 Pulse 75 91 Resp 18 29 B/P (MAP) 104/52 (69) 106/70 (82) Pulse Ox 96 95 95 O2 Delivery Mechanical Ventilator Ventilator Ventilator Ventilator 03/12/18 03/12/18 03/12/18 03/12/18 03:00 03:30 04:00 04:00 Temp 99.8 99.8 Pulse 81 75 Resp 18 18 B/P (MAP) 95/51 (66) 95/58 (70) Pulse Ox 96 97 97 O2 Delivery Ventilator Ventilator Mechanical Ventilator Ventilator 03/12/18 03/12/18 03/12/18 03/12/18 05:00 05:30 05:51 06:00 Pulse 82 78 Resp 18 18 18 B/P (MAP) 115/74 (88) 112/64 (80) Pulse Ox 97 97 97 97 O2 Delivery Ventilator Ventilator Ventilator Ventilator 03/12/18 03/12/18 03/12/18 03/12/18 06:21 07:00 07:13 07:42 Pulse 84 Resp 22 20 B/P (MAP) 125/83 (97) Pulse Ox 95 98 96 O2 Delivery Ventilator Ventilator Ventilator Ventilator 03/12/18 03/12/18 03/12/18 03/12/18 08:00 08:00 09:00 09:07 Temp 99.5 99.5 Pulse 92 74 Resp 18 19 B/P (MAP) 131/73 (92) 111/64 (80) Pulse Ox 95 97 97 O2 Delivery Mechanical Ventilator Ventilator Ventilator Ventilator 03/12/18 03/12/18 03/12/18 10:00 11:00 11:13 Pulse 76 79 Resp 20 18 B/P (MAP) 113/65 (81) 110/67 (81) Pulse Ox 98 98 98 O2 Delivery Ventilator Ventilator Ventilator Intake and Output 03/11/18 03/11/18 03/12/18 15:00 23:00 07:00 Intake Total 400 ml 2349 ml 2076 ml Output Total 380 ml 380 ml 1035 ml Balance 20 ml 1969 ml 1041 ml KELBY CEDEÑO MD Mar 12, 2018 11:52
[2018-03-12] MEDS: MIDAZOLAM 100mg/100ml NS BAG 100 ML IV PRN (14:07)
[2018-03-12] MEDS: MICAFUNGIN 100 MG in IV DEXTROSE 5% 100ML 100 ML IV SCH (16:06)
[2018-03-12] MEDS ORDERED: AMINO ACIDS IV SCH ×18 (22:00)
[2018-03-12] MEDS ORDERED: DEXTROSE 70% IV SCH ×18 (22:00)
[2018-03-12] MEDS ORDERED: TOTAL PARENTERAL NUTRITION IV SCH ×18 (22:00)
[2018-03-12] MEDS ORDERED: [UNRECOGNIZED DRUG - OTHER] IV SCH ×18 (22:00)
[2018-03-13] VITALS (24 sets, daily range): BP systolic 100–180; BP diastolic 55–104
[2018-03-13] MEDS: PIPERACILLIN/TAZOBACTAM 3.375 GM in IV NORMAL SALINE 50ML 50 ML IV SCH ×4 (00:14→19:46)
[2018-03-13 05:56] LABS: CALCIUM 8.8 mg/dL (8.5-10.1); CREATININE 0.9 mg/dL (0.7-1.3); GFR 95.5; MAGNESIUM 1.9 mg/dL (1.8-2.4); PHOSPHORUS 3.3 mg/dL (2.6-4.7); POTASSIUM 3.5 mmol/L (3.5-5.1)
[2018-03-13 06:05] LABS: BASO % 1 % (0-3); EOS # 0.4 x10^3/uL (0.0-0.7); EOS % 5 % (0-3); HEMATOCRIT 31.3 % (39.0-53.0); HEMOGLOBIN 10.7 g/dL (13.0-17.5); LYMPH # 1.1 x10^3/uL (1.0-4.8); LYMPH % 12 % (24-48); MEAN CORPUSCULAR HEMOGLOBIN 31 pg (25-35); MEAN CORPUSCULAR HGB CONC 34 g/dL (31-37); MEAN CORPUSCULAR VOLUME 90 fL (79-100); MONO # 0.6 x10^3/uL (0.0-1.1); MONO % 7 % (0-9); NEUT # 6.7 x10^3uL (1.8-7.7); NEUT % 76 % (31-73); PLATELET COUNT 300 x10^3/uL (140-400); RED BLOOD COUNT 3.48 x10^6/uL (4.30-5.70); RED CELL DISTRIBUTION WIDTH 13.7 % (11.5-14.5); WHITE BLOOD COUNT 8.8 x10^3/uL (4.0-11.0)
--- NOTE | 2018-03-13 07:04 | PDOC ---
Infectious Disease Note Subjective Subjective Intubated but awake. States ok No nausea and pain controlled ROS ROS o/w neg Vital Sign Vital Signs Vital Signs Date Time Temp Pulse Resp B/P (MAP) Pulse Ox O2 Delivery O2 Flow Rate FiO2 03/13/18 06:00 78 18 120/66 (84) 96 Ventilator 03/13/18 04:00 99.3 99.3 Physical Exam PHYSICAL EXAM GENERAL: Intubated alert with mitt left hand HENT: Pupils equal, nml conj. OGT & ETT NECK: no JVD LUNGS: CTA CV: Distant heart tones ABDOMEN:n Obese, hypoactive bowel sounds, soft, no grimace to light palpation. mild distension : Galvan in place EXT: No gross edema or cyanosis. right groin dressing clean SKIN: warm without rash Right PICC line - clean Labs Lab Laboratory Tests Test 03/12/18 07:35 03/12/18 11:48 03/13/18 00:21 03/13/18 05:00 O2 Saturation 90 % (92-99) Arterial Blood pH 7.38 (7.35-7.45) Arterial Blood pCO2 at Patient Temp 41 mmHg (35-46) Arterial Blood pO2 at Patient Temp 61 mmHg (85-108) Arterial Blood HCO3 24 mmol/L (21-28) Arterial Blood Base Excess -1 mmol/L (-3-3) FiO2 Glucose (Fingerstick) 108 mg/dL (70-99) 118 mg/dL (70-99) White Blood Count 8.8 x10^3/uL (4.0-11.0) Red Blood Count 3.48 x10^6/uL (4.30-5.70) Hemoglobin 10.7 g/dL (13.0-17.5) Hematocrit 31.3 % (39.0-53.0) Mean Corpuscular Volume 90 fL (79-100) Mean Corpuscular Hemoglobin 31 pg (25-35) Mean Corpuscular Hemoglobin Concent 34 g/dL (31-37) Red Cell Distribution Width 13.7 % (11.5-14.5) Platelet Count 300 x10^3/uL (140-400) Neutrophils (%) (Auto) 76 % (31-73) Lymphocytes (%) (Auto) 12 % (24-48) Monocytes (%) (Auto) 7 % (0-9) Eosinophils (%) (Auto) 5 % (0-3) Basophils (%) (Auto) 1 % (0-3) Neutrophils # (Auto) 6.7 x10^3uL (1.8-7.7) Lymphocytes # (Auto) 1.1 x10^3/uL (1.0-4.8) Monocytes # (Auto) 0.6 x10^3/uL (0.0-1.1) Eosinophils # (Auto) 0.4 x10^3/uL (0.0-0.7) Basophils # (Auto) 0.0 x10^3/uL (0.0-0.2) Sodium Level 139 mmol/L (136-145) Potassium Level 3.5 mmol/L (3.5-5.1) Chloride Level 106 mmol/L (98-107) Carbon Dioxide Level 25 mmol/L (21-32) Anion Gap 8 (6-14) Blood Urea Nitrogen 10 mg/dL (8-26) Creatinine 0.9 mg/dL (0.7-1.3) Estimated GFR (Cockcroft-Gault) 95.5 Glucose Level 144 mg/dL (70-99) Calcium Level 8.8 mg/dL (8.5-10.1) Phosphorus Level 3.3 mg/dL (2.6-4.7) Magnesium Level 1.9 mg/dL (1.8-2.4) Test 03/13/18 05:11 Glucose (Fingerstick) 141 mg/dL (70-99) Micro Microbiology 03/09/18 Blood Culture - Preliminary, Resulted NO GROWTH AFTER [address] 03/11 IMPRESSION: 1. Life support devices in appropriate position. 2. No large central pulmonary embolus. Lobar, segmental, subsegmental pulmonary arteries cannot be evaluated due to limited contrast opacification. 3. Moderate consolidations with air bronchograms in the bilateral lower lobes. Considerations include aspiration, pneumonia, or atelectasis. 4. Persistent diverticulitis of the sigmoid colon. There is a small incompletely formed probable peridiverticular abscess. 5. Fatty infiltration of the liver. Objective Assessment s/p code blue, 03/09 Sepsis w/ hypotension requiring vasopressor support previously but now off. - BC from 03/07 NGTD. Fever curve improving Leukocytosis - better Acute diverticulitis with microperforation -gen surgery following, on bowel rest Allergy Cipro - rash RONNY Acute respiratory failure ? ARDS developing Substance abuse. urine tox + cocaine and marijuana 03/07 & 03/09 PUD / GERD Etoh dependence Morbid obesity, BMI 41 Hypertension Recently hosp [facility] & EGD- ulcers Rx on omeprazole per Plan Plan of Care Continue Zyvox, Zosyn and micafungin Blood cults 82/ neg and Repeat BC from 03/09 neg so far Monitor labs/VSS Still critically ill D/w D/w RN LAURA HARMAN MD Mar 13, 2018 07:04
[2018-03-13] MEDS: INSULIN LISPRO 300 UNITS/3 ML INSULN.PEN. SQ SCH ×3 (07:23→17:00)
--- NOTE | 2018-03-13 07:34 | PDOC ---
PROGRESS NOTES Subjective Subjective intubated, but responsive, shakes head "no" to pain Objective Objective Vital Signs Date Time Temp Pulse Resp B/P (MAP) Pulse Ox O2 Delivery O2 Flow Rate FiO2 03/13/18 06:00 78 18 120/66 (84) 96 Ventilator 03/13/18 04:00 99.3 99.3 03/11/18 12:00 2.0 Intake and Output 03/13/18 07:00 Intake Total 3556.57 ml Output Total 2670 ml Balance 886.57 ml IV Total 3556.57 ml Output Urine Total 2670 ml Physical Exam Abdomen: Soft (no guarding or evidence of tenderness with palpation) Heart: Regular rate Extremities: No clubbing, No cyanosis General: Alert Skin: No rashes, No breakdown Assessment Assessment Problems Medical Problems: (1) Diverticulitis of colon with perforation Status: Acute Plan Plan of Care Suspected perf diverticulitis; afeb, wbc normal, exam stable; plan for FU CT scan Sunday Comment Review of Relevant I have reviewed the following items kalin (where applicable) has been applied. Labs Laboratory Tests Test 03/11/18 08:45 03/11/18 08:55 03/11/18 17:01 03/12/18 04:30 O2 Saturation 95 % (92-99) Arterial Blood pH 7.49 (7.35-7.45) Arterial Blood pCO2 at Patient Temp 29 mmHg (35-46) Arterial Blood pO2 at Patient Temp 75 mmHg (85-108) Arterial Blood HCO3 22 mmol/L (21-28) Arterial Blood Base Excess -1 mmol/L (-3-3) FiO2 60 Glucose (Fingerstick) 115 mg/dL (70-99) 86 mg/dL (70-99) White Blood Count 9.1 x10^3/uL (4.0-11.0) Red Blood Count 3.44 x10^6/uL (4.30-5.70) Hemoglobin 10.4 g/dL (13.0-17.5) Hematocrit 31.0 % (39.0-53.0) Mean Corpuscular Volume 90 fL (79-100) Mean Corpuscular Hemoglobin 30 pg (25-35) Mean Corpuscular Hemoglobin Concent 34 g/dL (31-37) Red Cell Distribution Width 13.5 % (11.5-14.5) Platelet Count 255 x10^3/uL (140-400) Neutrophils (%) (Auto) 77 % (31-73) Lymphocytes (%) (Auto) 12 % (24-48) Monocytes (%) (Auto) 7 % (0-9) Eosinophils (%) (Auto) 3 % (0-3) Basophils (%) (Auto) 1 % (0-3) Neutrophils # (Auto) 7.0 x10^3uL (1.8-7.7) Lymphocytes # (Auto) 1.1 x10^3/uL (1.0-4.8) Monocytes # (Auto) 0.6 x10^3/uL (0.0-1.1) Eosinophils # (Auto) 0.3 x10^3/uL (0.0-0.7) Basophils # (Auto) 0.1 x10^3/uL (0.0-0.2) Sodium Level 138 mmol/L (136-145) Potassium Level 3.4 mmol/L (3.5-5.1) Chloride Level 104 mmol/L (98-107) Carbon Dioxide Level 27 mmol/L (21-32) Anion Gap 7 (6-14) Blood Urea Nitrogen 14 mg/dL (8-26) Creatinine 1.0 mg/dL (0.7-1.3) Estimated GFR (Cockcroft-Gault) 84.5 BUN/Creatinine Ratio 14 (6-20) Glucose Level 126 mg/dL (70-99) Calcium Level 8.2 mg/dL (8.5-10.1) Phosphorus Level 4.0 mg/dL (2.6-4.7) Magnesium Level 2.1 mg/dL (1.8-2.4) Total Bilirubin 0.5 mg/dL (0.2-1.0) Aspartate Amino Transf (AST/SGOT) 33 U/L (15-37) Alanine Aminotransferase (ALT/SGPT) 45 U/L (16-63) Alkaline Phosphatase 59 U/L (46-116) Total Protein 6.3 g/dL (6.4-8.2) Albumin 1.8 g/dL (3.4-5.0) Albumin/Globulin Ratio 0.4 (1.0-1.7) Triglycerides Level 265 mg/dL (0-150) Test 03/12/18 04:36 03/12/18 07:35 03/12/18 11:48 03/13/18 00:21 Glucose (Fingerstick) 121 mg/dL (70-99) 108 mg/dL (70-99) 118 mg/dL (70-99) O2 Saturation 90 % (92-99) Arterial Blood pH 7.38 (7.35-7.45) Arterial Blood pCO2 at Patient Temp 41 mmHg (35-46) Arterial Blood pO2 at Patient Temp 61 mmHg (85-108) Arterial Blood HCO3 24 mmol/L (21-28) Arterial Blood Base Excess -1 mmol/L (-3-3) FiO2 Test 03/13/18 05:00 03/13/18 05:11 White Blood Count 8.8 x10^3/uL (4.0-11.0) Red Blood Count 3.48 x10^6/uL (4.30-5.70) Hemoglobin 10.7 g/dL (13.0-17.5) Hematocrit 31.3 % (39.0-53.0) Mean Corpuscular Volume 90 fL (79-100) Mean Corpuscular Hemoglobin 31 pg (25-35) Mean Corpuscular Hemoglobin Concent 34 g/dL (31-37) Red Cell Distribution Width 13.7 % (11.5-14.5) Platelet Count 300 x10^3/uL (140-400) Neutrophils (%) (Auto) 76 % (31-73) Lymphocytes (%) (Auto) 12 % (24-48) Monocytes (%) (Auto) 7 % (0-9) Eosinophils (%) (Auto) 5 % (0-3) Basophils (%) (Auto) 1 % (0-3) Neutrophils # (Auto) 6.7 x10^3uL (1.8-7.7) Lymphocytes # (Auto) 1.1 x10^3/uL (1.0-4.8) Monocytes # (Auto) 0.6 x10^3/uL (0.0-1.1) Eosinophils # (Auto) 0.4 x10^3/uL (0.0-0.7) Basophils # (Auto) 0.0 x10^3/uL (0.0-0.2) Sodium Level 139 mmol/L (136-145) Potassium Level 3.5 mmol/L (3.5-5.1) Chloride Level 106 mmol/L (98-107) Carbon Dioxide Level 25 mmol/L (21-32) Anion Gap 8 (6-14) Blood Urea Nitrogen 10 mg/dL (8-26) Creatinine 0.9 mg/dL (0.7-1.3) Estimated GFR (Cockcroft-Gault) 95.5 Glucose Level 144 mg/dL (70-99) Calcium Level 8.8 mg/dL (8.5-10.1) Phosphorus Level 3.3 mg/dL (2.6-4.7) Magnesium Level 1.9 mg/dL (1.8-2.4) Glucose (Fingerstick) 141 mg/dL (70-99) Laboratory Tests Test 03/12/18 07:35 03/12/18 11:48 03/13/18 00:21 03/13/18 05:00 O2 Saturation 90 % (92-99) Arterial Blood pH 7.38 (7.35-7.45) Arterial Blood pCO2 at Patient Temp 41 mmHg (35-46) Arterial Blood pO2 at Patient Temp 61 mmHg (85-108) Arterial Blood HCO3 24 mmol/L (21-28) Arterial Blood Base Excess -1 mmol/L (-3-3) FiO2 Glucose (Fingerstick) 108 mg/dL (70-99) 118 mg/dL (70-99) White Blood Count 8.8 x10^3/uL (4.0-11.0) Red Blood Count 3.48 x10^6/uL (4.30-5.70) Hemoglobin 10.7 g/dL (13.0-17.5) Hematocrit 31.3 % (39.0-53.0) Mean Corpuscular Volume 90 fL (79-100) Mean Corpuscular Hemoglobin 31 pg (25-35) Mean Corpuscular Hemoglobin Concent 34 g/dL (31-37) Red Cell Distribution Width 13.7 % (11.5-14.5) Platelet Count 300 x10^3/uL (140-400) Neutrophils (%) (Auto) 76 % (31-73) Lymphocytes (%) (Auto) 12 % (24-48) Monocytes (%) (Auto) 7 % (0-9) Eosinophils (%) (Auto) 5 % (0-3) Basophils (%) (Auto) 1 % (0-3) Neutrophils # (Auto) 6.7 x10^3uL (1.8-7.7) Lymphocytes # (Auto) 1.1 x10^3/uL (1.0-4.8) Monocytes # (Auto) 0.6 x10^3/uL (0.0-1.1) Eosinophils # (Auto) 0.4 x10^3/uL (0.0-0.7) Basophils # (Auto) 0.0 x10^3/uL (0.0-0.2) Sodium Level 139 mmol/L (136-145) Potassium Level 3.5 mmol/L (3.5-5.1) Chloride Level 106 mmol/L (98-107) Carbon Dioxide Level 25 mmol/L (21-32) Anion Gap 8 (6-14) Blood Urea Nitrogen 10 mg/dL (8-26) Creatinine 0.9 mg/dL (0.7-1.3) Estimated GFR (Cockcroft-Gault) 95.5 Glucose Level 144 mg/dL (70-99) Calcium Level 8.8 mg/dL (8.5-10.1) Phosphorus Level 3.3 mg/dL (2.6-4.7) Magnesium Level 1.9 mg/dL (1.8-2.4) Test 03/13/18 05:11 Glucose (Fingerstick) 141 mg/dL (70-99) Microbiology 03/09/18 Blood Culture - Preliminary, Resulted NO GROWTH AFTER 3 DAYS Medications Current Medications Sodium Chloride (Normal Saline Flush) 3 ml QSHIFT PRN IV AFTER MEDS AND BLOOD DRAWS; Start 03/07/18 at 11:00 Sodium Chloride 1,000 ml @ 1,000 mls/hr Q1H IV Last administered on 03/07/18at 11:32; Start 03/07/18 at 11:00; Stop 03/07/18 at 11:59; Status DC Iohexol (Omnipaque 300 Mg/ml) 75 ml 1X ONCE IV Last administered on 03/07/18at 12:46; Start 03/07/18 at 11:15; Stop 03/07/18 at 11:16; Status DC Info (CONTRAST GIVEN -- Rx MONITORING) 1 each PRN DAILY PRN MC SEE COMMENTS; Start 03/07/18 at 11:15; Stop 03/09/18 at 11:14; Status DC Sodium Chloride 1,000 ml @ 1,000 mls/hr 1X ONCE IV Last administered on at 12:37; Start 03/07/18 at 12:00; Stop 03/07/18 at 12:59; Status DC Fentanyl Citrate (Fentanyl 2ml Vial) 50 mcg 1X ONCE IV Last administered on 03/07/18at 13:07; Start 03/07/18 at 13:00; Stop 03/07/18 at 13:01; Status DC Metronidazole 100 ml @ 100 mls/hr 1X ONCE IV ; Start 03/07/18 at 13:30; Stop at 14:29; Status DC Ciprofloxacin/ Dextrose 200 ml @ 200 mls/hr ONCE STAT IV Last administered on 03/07/18at 13:42; Start 03/07/18 at 13:12; Stop 03/07/18 at 14:11; Status DC Piperacillin Sod/ Tazobactam Sod 3.375 gm/Sodium Chloride 50 ml @ 100 mls/hr 1X ONCE IV Last administered on 03/07/18at 14:43; Start 03/07/18 at 14:30; Stop 03/07/18 at 14:59; Status DC Diphenhydramine HCl (Benadryl) 50 mg 1X ONCE IVP Last administered on at 14:33; Start 03/07/18 at 14:15; Stop 03/07/18 at 14:16; Status DC Fentanyl Citrate (Fentanyl 2ml Vial) 25 mcg 1X ONCE IV ; Start 03/07/18 at 14:15 ; Stop 03/07/18 at 14:16; Status Cancel Morphine Sulfate (Morphine Sulfate) 4 mg 1X ONCE IV Last administered on at 14:35; Start 03/07/18 at 14:30; Stop 03/07/18 at 14:31; Status DC Ondansetron HCl (Zofran) 4 mg PRN Q8HRS PRN IV NAUSEA/VOMITING; Start 03/07/18 at 14:30; Stop 03/08/18 at 14:29; Status DC Morphine Sulfate (Morphine Sulfate) 4 mg PRN Q2HR PRN IV PAIN Last administered on 03/08/18at 08:20; Start 03/07/18 at 14:30; Stop 03/08/18 at 14:29; Status DC Piperacillin Sod/ Tazobactam Sod 3.375 gm/Sodium Chloride 50 ml @ 100 mls/hr Q6HRS IV Last administered on 03/13/18at 06:05; Start 03/07/18 at 18:00 Metronidazole 100 ml @ 100 mls/hr Q8HRS IV Last administered on 03/09/18at 11:19 ; Start 03/07/18 at 22:00; Stop 03/09/18 at 15:10; Status DC Sodium Chloride 500 ml @ 500 mls/hr 1X ONCE IV Last administered on 03/07/18at 16:45; Start 03/07/18 at 16:45; Stop 03/07/18 at 17:44; Status DC Amino Acids/ Glycerin/ Electrolytes 1,000 ml @ 80 mls/hr [id number] IV Last administered on 03/11/18at 07:47; Start 03/07/18 at 16:45; Stop 03/11/18 at 20:21; Status DC Acetaminophen (Tylenol) 650 mg PRN Q6HRS PRN PO fever ; Start 03/07/18 at 18:00 Pantoprazole Sodium (PROTONIX VIAL for IV PUSH) 40 mg DAILYAC IVP Last administered on 03/12/18at 10:41; Start 03/08/18 at 07:45 Morphine Sulfate (Morphine Sulfate) 4 mg PRN Q2HR PRN IV MODRATE-SEVERE PAIN 2ND CHOICE Last administered on 03/09/18at 04:26; Start 03/08/18 at 14:45 Lorazepam (Ativan) 1 mg PRN Q4HRS PRN IV ANXIETY / AGITATION Last administered on 03/08/18at 21:41; Start 03/08/18 at 20:30 Ondansetron HCl (Zofran) 4 mg PRN Q6HRS PRN IV NAUSEA/VOMITING 1ST CHOICE Last administered on 03/09/18at 02:07; Start 03/09/18 at 02:00 Etomidate (Amidate) 20 mg STK-MED ONCE IV ; Start 03/09/18 at 06:55; Stop at 06:56; Status DC Norepinephrine Bitartrate 250 ml @ As Directed STK-MED ONCE IV ; Start 03/09/18 at 06:55; Stop 03/09/18 at 06:56; Status DC Midazolam HCl (Versed) 5 mg STK-MED ONCE .ROUTE ; Start 03/09/18 at 06:55; Stop 03/09/18 at 06:56; Status DC Fentanyl Citrate (Fentanyl 2ml Vial) 100 mcg STK-MED ONCE .ROUTE ; Start at 06:55; Stop 03/09/18 at 06:56; Status DC Succinylcholine Chloride (Anectine) 200 mg STK-MED ONCE .ROUTE ; Start 03/09/18 at 06:56; Stop 03/09/18 at 06:57; Status DC Fentanyl Citrate 30 ml @ 0 mls/hr CONT PRN IV PER PROTOCOL Last administered on 03/13/18at 03:06; Start 03/09/18 at 07:00 Fentanyl Citrate (Fentanyl 2ml Vial) 25 mcg PRN Q1HR PRN IV MILD PAIN; Start at 07:00 Fentanyl Citrate (Fentanyl 2ml Vial) 50 mcg PRN Q1HR PRN IV MOD TO SEVERE PAIN ; Start 03/09/18 at 07:00 Chlorhexidine Gluconate (Peridex) 15 ml BID MM Last administered on 03/12/18at 20 :35; Start 03/09/18 at 09:00 Midazolam HCl (Versed) 2 mg PRN Q30MIN PRN IV SEDATION; Start 03/09/18 at 07:00 ; Stop 03/10/18 at 10:26; Status DC Midazolam HCl 100 ml @ 0 mls/hr CONT PRN IV PER PROTOCOL Last administered on at 14:07; Start 03/09/18 at 07:00 Enoxaparin Sodium (Lovenox 40mg Syringe) 40 mg Q12H SQ Last administered on 03/10at 09:31; Start 03/09/18 at 09:00; Stop 03/10/18 at 12:01; Status DC Sodium Chloride 1,000 ml @ 75 mls/hr [id number] IV Last administered on 03/12/18at 11:47; Start 03/09/18 at 10:15 Sodium Chloride 1,000 ml @ 1,000 mls/hr 1X ONCE IV Last administered on at 10:15; Start 03/09/18 at 10:15; Stop 03/09/18 at 11:14; Status DC Norepinephrine Bitartrate 250 ml @ As Directed STK-MED ONCE IV ; Start 03/09/18 at 10:37; Stop 03/09/18 at 10:38; Status DC Phenylephrine HCl 20 mg/Sodium Chloride 252 ml @ 22.68 mls/ hr 1X ONCE IV ; Start 03/09/18 at 10:45; Stop 03/09/18 at 21:51; Status DC Iohexol (Omnipaque 300 Mg/ml) 75 ml 1X ONCE IV ; Start 03/09/18 at 11:30; Stop 03/09/18 at 11:35; Status DC Micafungin Sodium 100 mg/Dextrose 100 ml @ 100 mls/hr Q24H IV Last administered on 03/12/18at 16:06; Start 03/09/18 at 16:00 Linezolid/Dextrose 300 ml @ 300 mls/hr Q12H IV Last administered on 03/13/18at 04:44; Start 03/09/18 at 17:00 Norepinephrine Bitartrate 250 ml @ 1.875 mls/ hr CONT PRN IV SEE I/O RECORD Last administered on 03/09/18at 16:18; Start 03/09/18 at 16:00 Furosemide (Lasix) 40 mg 1X ONCE IVP Last administered on 03/10/18at 08:49; Start 03/10/18 at 09:00; Stop 03/10/18 at 09:01; Status DC Perflutren Protein Type A Microsphe (Optison) 0.66 mg STK-MED ONCE IV ; Start at 10:23; Stop 03/10/18 at 10:25; Status DC Enoxaparin Sodium (Lovenox Per Pharmacy Treatment Dosing) 1 each PRN DAILY PRN MC SEE COMMENTS; Start 03/10/18 at 12:00; Stop 03/11/18 at 12:50; Status DC Enoxaparin Sodium (Lovenox 150mg Syringe) 130 mg Q12H SQ Last administered on at 07:48; Start 03/10/18 at 21:00; Stop 03/11/18 at 12:51; Status DC Enoxaparin Sodium (Lovenox 100mg Syringe) 90 mg 1X ONCE SQ Last administered on 03/10/18at 13:53; Start 03/10/18 at 12:30; Stop 03/10/18 at 12:31; Status DC Perflutren Protein Type A Microsphe (Optison) 0.66 mg 1X ONCE IV Last administered on 03/10/18at 12:55; Start 03/10/18 at 13:00; Stop 03/10/18 at 13:01; Status DC Iohexol (Omnipaque 300 Mg/ml) 75 ml 1X ONCE IV Last administered on 03/11/18at 10:00; Start 03/11/18 at 09:00; Stop 03/11/18 at 09:01; Status DC Info (CONTRAST GIVEN -- Rx MONITORING) 1 each PRN DAILY PRN MC SEE COMMENTS; Start 03/11/18 at 09:00; Stop 03/13/18 at 08:59 Norepinephrine Bitartrate (Levophed 8mg/ 250ml Premix Drip) 8 mg STK-MED ONCE IV ; Start 03/09/18 at 07:00; Stop 03/11/18 at 08:58; Status DC Insulin Human Lispro (HumaLOG) 0-5 UNITS TIDWMEALS SQ ; Start 03/11/18 at 12:00 Dextrose (Dextrose 50%-Water Syringe) 12.5 gm PRN Q15MIN PRN IV SEE COMMENTS; Start 03/11/18 at 09:15 Potassium Chloride/Water 50 ml @ 50 mls/hr 1X ONCE IV Last administered on 03/11at 09:43; Start 03/11/18 at 10:00; Stop 03/11/18 at 10:59; Status DC Info (Anti-Coagulation Monitoring By Pharmacy) 1 each PRN DAILY PRN MC SEE COMMENTS; Start 03/11/18 at 09:30; Stop 03/11/18 at 12:51; Status DC Info (Tpn Per Pharmacy) 1 each PRN DAILY PRN MC SEE COMMENTS Last administered on 03/12/18at 10:18; Start 03/11/18 at 11:15 Magnesium Sulfate 50 ml @ 25 mls/hr 1X ONCE IV Last administered on 03/11/18at 15:09; Start 03/11/18 at 16:00; Stop 03/11/18 at 17:59; Status DC Potassium Phosphate 13.6 mmol/Dextrose 104.5333 ml @ 52.267 m... ONCE ONCE IV Last administered on 03/11/18at 17:11; Start 03/11/18 at 18:00; Stop 03/11/18 at 19:59; Status DC Norepinephrine Bitartrate (Levophed 8mg/ 250ml Premix Drip) 8 mg STK-MED ONCE IV ; Start 03/09/18 at 11:00; Stop 03/11/18 at 12:37; Status DC Enoxaparin Sodium (Lovenox 40mg Syringe) 40 mg Q12HR SQ Last administered on 03/12/18at 20:35; Start 03/11/18 at 21:00 Sodium Chloride 90 meq/Potassium Chloride 50 meq/ Potassium Phosphate 13.6 mmol/ Magnesium Sulfate 10 meq/ Multivitamins 10 ml/Chromium/ Copper/Manganese/ Seleni /Zn 1 ml/ Total Parenteral Nutrition/Amino Acids/Dextrose/ Fat Emulsion Intravenous 1,800 ml @ 75 mls/hr TPN CONT IV Last administered on 03/11/18at 21 :44; Start 03/11/18 at 22:00; Stop 03/12/18 at 21:59; Status DC Potassium Chloride/Water 50 ml @ 50 mls/hr 1X ONCE IV Last administered on 03/12at 10:40; Start 03/12/18 at 09:30; Stop 03/12/18 at 10:29; Status DC Sodium Chloride 90 meq/Potassium Acetate 70 meq/ Potassium Phosphate 10 mmol/ Magnesium Sulfate 10 meq/ Multivitamins 10 ml/Chromium/ Copper/Manganese/ Seleni /Zn 1 ml/ Total Parenteral Nutrition/Amino Acids/Dextrose/ Fat Emulsion Intravenous 1,800 ml @ 75 mls/hr TPN CONT IV ; Start 03/12/18 at 22:00; Stop at 22:00; Status DC Sodium Chloride 90 meq/Potassium Chloride 70 meq/ Potassium Phosphate 10 mmol/ Magnesium Sulfate 10 meq/ Multivitamins 10 ml/Chromium/ Copper/Manganese/ Seleni /Zn 1 ml/ Total Parenteral Nutrition/Amino Acids/Dextrose/ Fat Emulsion Intravenous 1,800 ml @ 75 mls/hr TPN CONT IV Last administered on 03/12/18at 21 :41; Start 03/12/18 at 22:00; Stop 03/13/18 at 21:59 Vitals/I & O Vital Sign - Last 24 Hours 03/12/18 03/12/18 03/12/18 03/12/18 07:42 08:00 08:00 09:00 Temp 99.5 99.5 Pulse 92 74 Resp 18 19 B/P (MAP) 131/73 (92) 111/64 (80) Pulse Ox 95 97 O2 Delivery Ventilator Mechanical Ventilator Ventilator Ventilator 03/12/18 03/12/18 03/12/18 03/12/18 09:07 10:00 11:00 11:13 Pulse 76 79 Resp 20 18 B/P (MAP) 113/65 (81) 110/67 (81) Pulse Ox 97 98 98 98 O2 Delivery Ventilator Ventilator Ventilator Ventilator 03/12/18 03/12/18 03/12/18 03/12/18 12:00 12:00 12:20 13:00 Temp 99.7 99.7 Pulse 93 95 Resp 22 20 20 B/P (MAP) 137/85 (102) 121/73 (89) Pulse Ox 94 95 94 O2 Delivery Mechanical Ventilator Ventilator Ventilator Ventilator 03/12/18 03/12/18 03/12/18 03/12/18 13:13 14:00 15:00 15:05 Pulse 84 78 Resp 18 18 B/P (MAP) 138/74 (95) 117/70 (86) Pulse Ox 96 96 98 98 O2 Delivery Ventilator Ventilator Ventilator Ventilator 03/12/18 03/12/18 03/12/18 03/12/18 16:00 16:00 17:00 17:36 Temp 99.9 99.9 Pulse 83 86 Resp 18 19 B/P (MAP) 130/85 (100) 126/89 (101) Pulse Ox 95 96 97 O2 Delivery Ventilator Mechanical Ventilator Ventilator Ventilator 03/12/18 03/12/18 03/12/18 03/12/18 18:00 19:00 19:25 20:00 Pulse 88 86 Resp 19 18 B/P (MAP) 124/79 (94) 126/80 (95) Pulse Ox 96 94 95 O2 Delivery Ventilator Ventilator Ventilator Mechanical Ventilator 03/12/18 03/12/18 03/12/18 03/12/18 20:00 21:00 22:00 22:17 Temp 99.9 99.9 Pulse 88 80 80 Resp 18 18 18 B/P (MAP) 128/74 (92) 116/61 (79) 120/74 (89) Pulse Ox 95 96 96 95 O2 Delivery Ventilator Ventilator Ventilator Ventilator 03/12/18 03/13/18 03/13/18 03/13/18 23:00 00:00 00:00 01:00 Temp 99.6 99.6 Pulse 76 83 77 Resp 18 18 18 B/P (MAP) 118/62 (80) 138/88 (105) 115/62 (79) Pulse Ox 96 95 96 O2 Delivery Ventilator Ventilator Mechanical Ventilator Ventilator 03/13/18 03/13/18 03/13/18 03/13/18 01:03 02:00 03:00 03:06 Pulse 80 74 Resp 18 18 18 B/P (MAP) 115/63 (80) 120/69 (86) Pulse Ox 95 96 96 97 O2 Delivery Ventilator Ventilator Ventilator 03/13/18 03/13/18 03/13/18 03/13/18 03:25 03:36 04:00 04:00 Temp 99.3 99.3 Pulse 73 Resp 18 18 B/P (MAP) 120/66 (84) Pulse Ox 96 97 98 O2 Delivery Ventilator Ventilator Ventilator Mechanical Ventilator 03/13/18 03/13/18 03/13/18 05:00 05:30 06:00 Pulse 72 78 Resp 18 18 B/P (MAP) 113/69 (84) 120/66 (84) Pulse Ox 96 97 96 O2 Delivery Ventilator Ventilator Ventilator Intake and Output 03/12/18 03/12/18 03/13/18 15:00 23:00 07:00 Intake Total 100 ml 1044.57 ml 2412 ml Output Total 680 ml 1115 ml 875 ml Balance -580 ml -70.43 ml 1537 ml EVAN MCGHEE MD Mar 13, 2018 07:33
--- NOTE | 2018-03-13 07:48 | RAD ---
Portable chest, 03/13/2018: HISTORY: Respiratory failure Comparison is made to yesterday's study. The right PICC now extends into the superior vena cava. The ET tube tip lies well above the santa. An NG tube extends into the stomach. The heart is enlarged. There is a moderate unchanged left basilar atelectasis/infiltrate. A component of pleural fluid cannot be excluded. Mild right infrahilar atelectasis/infiltrate has worsened slightly. Mild patient rotation and motion may be contributing to this appearance. IMPRESSION: 1. Satisfactory tube positions. 2. Ongoing basilar pulmonary infiltrates, left greater than right, with slight interval worsening on the right. Electronically signed by: Francisco Ruffin MD (03/13/2018 7:44 AM) [facility]
[2018-03-13 08:38] LABS: BASE EXCESS ABG -2 mmol/L (-3-3); HCO3 ABG 22 mmol/L (21-28); PCO2 ABG 35 mmHg (35-46); PO2 ABG 80 mmHg (85-108); SAT O2 ABG 95 % (92-99)
[2018-03-13 08:41] LABS: FIO2 ABG 40
--- NOTE | 2018-03-13 10:17 | PDOC ---
PULMONARY PROGRESS NOTES Subjective AWAKE, FOLLOWS COMMANDS SLOWLY IMPROVING OXYGENATION DOWN TO 40% FIO2/ 7 PEEP Vitals Vital Signs Date Time Temp Pulse Resp B/P (MAP) Pulse Ox O2 Delivery O2 Flow Rate FiO2 03/13/18 08:00 96 Ventilator 03/13/18 06:00 78 18 120/66 (84) 03/13/18 04:00 99.3 99.3 General: Alert Lungs: Clear Cardiovascular: S1, S2 Abdomen: Soft Extremities: Other (EDEMA) Skin: Warm Labs Laboratory Tests Test 03/11/18 17:01 03/12/18 04:30 03/12/18 04:36 03/12/18 07:35 Glucose (Fingerstick) 86 mg/dL (70-99) 121 mg/dL (70-99) White Blood Count 9.1 x10^3/uL (4.0-11.0) Red Blood Count 3.44 x10^6/uL (4.30-5.70) Hemoglobin 10.4 g/dL (13.0-17.5) Hematocrit 31.0 % (39.0-53.0) Mean Corpuscular Volume 90 fL (79-100) Mean Corpuscular Hemoglobin 30 pg (25-35) Mean Corpuscular Hemoglobin Concent 34 g/dL (31-37) Red Cell Distribution Width 13.5 % (11.5-14.5) Platelet Count 255 x10^3/uL (140-400) Neutrophils (%) (Auto) 77 % (31-73) Lymphocytes (%) (Auto) 12 % (24-48) Monocytes (%) (Auto) 7 % (0-9) Eosinophils (%) (Auto) 3 % (0-3) Basophils (%) (Auto) 1 % (0-3) Neutrophils # (Auto) 7.0 x10^3uL (1.8-7.7) Lymphocytes # (Auto) 1.1 x10^3/uL (1.0-4.8) Monocytes # (Auto) 0.6 x10^3/uL (0.0-1.1) Eosinophils # (Auto) 0.3 x10^3/uL (0.0-0.7) Basophils # (Auto) 0.1 x10^3/uL (0.0-0.2) Sodium Level 138 mmol/L (136-145) Potassium Level 3.4 mmol/L (3.5-5.1) Chloride Level 104 mmol/L (98-107) Carbon Dioxide Level 27 mmol/L (21-32) Anion Gap 7 (6-14) Blood Urea Nitrogen 14 mg/dL (8-26) Creatinine 1.0 mg/dL (0.7-1.3) Estimated GFR (Cockcroft-Gault) 84.5 BUN/Creatinine Ratio 14 (6-20) Glucose Level 126 mg/dL (70-99) Calcium Level 8.2 mg/dL (8.5-10.1) Phosphorus Level 4.0 mg/dL (2.6-4.7) Magnesium Level 2.1 mg/dL (1.8-2.4) Total Bilirubin 0.5 mg/dL (0.2-1.0) Aspartate Amino Transf (AST/SGOT) 33 U/L (15-37) Alanine Aminotransferase (ALT/SGPT) 45 U/L (16-63) Alkaline Phosphatase 59 U/L (46-116) Total Protein 6.3 g/dL (6.4-8.2) Albumin 1.8 g/dL (3.4-5.0) Albumin/Globulin Ratio 0.4 (1.0-1.7) Triglycerides Level 265 mg/dL (0-150) O2 Saturation 90 % (92-99) Arterial Blood pH 7.38 (7.35-7.45) Arterial Blood pCO2 at Patient Temp 41 mmHg (35-46) Arterial Blood pO2 at Patient Temp 61 mmHg (85-108) Arterial Blood HCO3 24 mmol/L (21-28) Arterial Blood Base Excess -1 mmol/L (-3-3) FiO2 Test 03/12/18 11:48 03/13/18 00:21 03/13/18 05:00 03/13/18 05:11 Glucose (Fingerstick) 108 mg/dL (70-99) 118 mg/dL (70-99) 141 mg/dL (70-99) White Blood Count 8.8 x10^3/uL (4.0-11.0) Red Blood Count 3.48 x10^6/uL (4.30-5.70) Hemoglobin 10.7 g/dL (13.0-17.5) Hematocrit 31.3 % (39.0-53.0) Mean Corpuscular Volume 90 fL (79-100) Mean Corpuscular Hemoglobin 31 pg (25-35) Mean Corpuscular Hemoglobin Concent 34 g/dL (31-37) Red Cell Distribution Width 13.7 % (11.5-14.5) Platelet Count 300 x10^3/uL (140-400) Neutrophils (%) (Auto) 76 % (31-73) Lymphocytes (%) (Auto) 12 % (24-48) Monocytes (%) (Auto) 7 % (0-9) Eosinophils (%) (Auto) 5 % (0-3) Basophils (%) (Auto) 1 % (0-3) Neutrophils # (Auto) 6.7 x10^3uL (1.8-7.7) Lymphocytes # (Auto) 1.1 x10^3/uL (1.0-4.8) Monocytes # (Auto) 0.6 x10^3/uL (0.0-1.1) Eosinophils # (Auto) 0.4 x10^3/uL (0.0-0.7) Basophils # (Auto) 0.0 x10^3/uL (0.0-0.2) Sodium Level 139 mmol/L (136-145) Potassium Level 3.5 mmol/L (3.5-5.1) Chloride Level 106 mmol/L (98-107) Carbon Dioxide Level 25 mmol/L (21-32) Anion Gap 8 (6-14) Blood Urea Nitrogen 10 mg/dL (8-26) Creatinine 0.9 mg/dL (0.7-1.3) Estimated GFR (Cockcroft-Gault) 95.5 Glucose Level 144 mg/dL (70-99) Calcium Level 8.8 mg/dL (8.5-10.1) Phosphorus Level 3.3 mg/dL (2.6-4.7) Magnesium Level 1.9 mg/dL (1.8-2.4) Test 03/13/18 08:33 O2 Saturation 95 % (92-99) Arterial Blood pH 7.41 (7.35-7.45) Arterial Blood pCO2 at Patient Temp 35 mmHg (35-46) Arterial Blood pO2 at Patient Temp 80 mmHg (85-108) Arterial Blood HCO3 22 mmol/L (21-28) Arterial Blood Base Excess -2 mmol/L (-3-3) FiO2 40 Laboratory Tests Test 03/12/18 11:48 03/13/18 00:21 03/13/18 05:00 03/13/18 05:11 Glucose (Fingerstick) 108 mg/dL (70-99) 118 mg/dL (70-99) 141 mg/dL (70-99) White Blood Count 8.8 x10^3/uL (4.0-11.0) Red Blood Count 3.48 x10^6/uL (4.30-5.70) Hemoglobin 10.7 g/dL (13.0-17.5) Hematocrit 31.3 % (39.0-53.0) Mean Corpuscular Volume 90 fL (79-100) Mean Corpuscular Hemoglobin 31 pg (25-35) Mean Corpuscular Hemoglobin Concent 34 g/dL (31-37) Red Cell Distribution Width 13.7 % (11.5-14.5) Platelet Count 300 x10^3/uL (140-400) Neutrophils (%) (Auto) 76 % (31-73) Lymphocytes (%) (Auto) 12 % (24-48) Monocytes (%) (Auto) 7 % (0-9) Eosinophils (%) (Auto) 5 % (0-3) Basophils (%) (Auto) 1 % (0-3) Neutrophils # (Auto) 6.7 x10^3uL (1.8-7.7) Lymphocytes # (Auto) 1.1 x10^3/uL (1.0-4.8) Monocytes # (Auto) 0.6 x10^3/uL (0.0-1.1) Eosinophils # (Auto) 0.4 x10^3/uL (0.0-0.7) Basophils # (Auto) 0.0 x10^3/uL (0.0-0.2) Sodium Level 139 mmol/L (136-145) Potassium Level 3.5 mmol/L (3.5-5.1) Chloride Level 106 mmol/L (98-107) Carbon Dioxide Level 25 mmol/L (21-32) Anion Gap 8 (6-14) Blood Urea Nitrogen 10 mg/dL (8-26) Creatinine 0.9 mg/dL (0.7-1.3) Estimated GFR (Cockcroft-Gault) 95.5 Glucose Level 144 mg/dL (70-99) Calcium Level 8.8 mg/dL (8.5-10.1) Phosphorus Level 3.3 mg/dL (2.6-4.7) Magnesium Level 1.9 mg/dL (1.8-2.4) Test 03/13/18 08:33 O2 Saturation 95 % (92-99) Arterial Blood pH 7.41 (7.35-7.45) Arterial Blood pCO2 at Patient Temp 35 mmHg (35-46) Arterial Blood pO2 at Patient Temp 80 mmHg (85-108) Arterial Blood HCO3 22 mmol/L (21-28) Arterial Blood Base Excess -2 mmol/L (-3-3) FiO2 40 Comments CTA CHEST REVIEWED 1. Life support devices in appropriate position. 2. No large central pulmonary embolus. Lobar, segmental, subsegmental pulmonary arteries cannot be evaluated due to limited contrast opacification. 3. Moderate consolidations with air bronchograms in the bilateral lower lobes. Considerations include aspiration, pneumonia, or atelectasis. 4. Persistent diverticulitis of the sigmoid colon. There is a small incompletely formed probable peridiverticular abscess. 5. Fatty infiltration of the liver. Electronically signed by: Akbar Naqvi MD (03/11/2018 11:21 AM) [id number] CXR 03/12 reviewed Mild left basal atelectasis Impression . IMPRESSION: 1. Acute respiratory failure, status post code blue. Etiology likely ALI/EARLY ARDS due to diverticulitis 2. Status post code blue patient with spontaneous return of circulation after one defibrillation and 2 minutes of chest compressions. 3. Septic shock.off pressor 4. Diverticulitis leading to septic shock. ? abscess/ suspected perf. diverticulitis 5. Metabolic acidosis secondary to code blue, increased work of breathing and renal insufficiency. improved 6. Morbid obesity. 7. Leukocytosis. 8. Obstructive sleep apnea. 9. Possible aspiration pneumonia. 10. No central PE by CTA, basal atelectasis/ consolidation Plan . D/W IN DETAIL SLOWLY IMPROVING OXYGENATION WEAN PEEP TO 6 START CPAP TRIALS POSSIBLE EXTUBATION IN 24 HRS LOVENOX FOR DVT PROPHYLAXIS DOSE NO SHUNT ON ECHO NEG VENOUS DOPPLER ANTIBX PER ID FOLLOW SURGERY REC TPN GI PROPH D/W RN/ ENTIRE FAMILY CCT 30 MIN LOY TIJERINA MD Mar 13, 2018 10:17
[2018-03-13] MEDS: PANTOPRAZOLE IV PUSH 40 MG VIAL. IVP SCH (11:06)
[2018-03-13] MEDS: ENOXAPARIN 40 MG/0.4 ML SYRINGE. SQ SCH ×2 (11:06→21:51)
[2018-03-13] MEDS: IV NORMAL SALINE 1000ML BAG 1,000 ML IV SCH ×2 (11:07→13:28)
[2018-03-13] MEDS: CHLORHEXIDINE 0.12% 15 ML MOUTHWASH. MM SCH ×2 (11:07→21:50)
--- NOTE | 2018-03-13 11:45 | PDOC ---
PROGRESS NOTES Chief Complaint Chief Complaint status post cardiac arrest, nonsustained V. 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 talked to daily at bedside History of Present Illness History of Present Illness Admitted for perforation of the diverticulitis, first episode of diverticulitis. But about 6:15 AM Sunday, found on the ground, unresponsive, nonsustained V. tach, 2 minutes of CPR, with ROSC ICU, intubated, sedated, vent slightly down to 40%, PEEP 7 Sedated C-collar on. Oliguric after 2 boluses of normal saline on , seems to be better now NEeded levophed sunday - but off pressors sunday talked to at bedside for a long time, who is not happy that someone told her that pt had heart attack i printed out the echo result to her and explained some possibilities for the CHF CT 03/11 showed diverticulitis, 2.4cm abscess Vitals Vitals Vital Signs Date Time Temp Pulse Resp B/P (MAP) Pulse Ox O2 Delivery O2 Flow Rate FiO2 03/13/18 08:00 96 Ventilator 03/13/18 06:00 78 18 120/66 (84) 03/13/18 04:00 99.3 99.3 Physical Exam Physical Exam GENERAL: Intubated alert with mitt left hand HENT: Pupils equal, nml conj. OGT & ETT NECK: no JVD LUNGS: CTA CV: Distant heart tones ABDOMEN:n Obese, hypoactive bowel sounds, soft, no grimace to light palpation. mild distension : Galvan in place EXT: No gross edema or cyanosis. right groin dressing clean SKIN: warm without rash Right PICC line - clean General: Alert Heart: Regular rate Lungs: Clear Abdomen: Soft (no guarding or evidence of tenderness with palpation) Extremities: No clubbing, No cyanosis Skin: No rashes, No breakdown Labs LABS Laboratory Tests Test 03/12/18 11:48 03/13/18 00:21 03/13/18 05:00 03/13/18 05:11 Glucose (Fingerstick) 108 mg/dL (70-99) 118 mg/dL (70-99) 141 mg/dL (70-99) White Blood Count 8.8 x10^3/uL (4.0-11.0) Red Blood Count 3.48 x10^6/uL (4.30-5.70) Hemoglobin 10.7 g/dL (13.0-17.5) Hematocrit 31.3 % (39.0-53.0) Mean Corpuscular Volume 90 fL (79-100) Mean Corpuscular Hemoglobin 31 pg (25-35) Mean Corpuscular Hemoglobin Concent 34 g/dL (31-37) Red Cell Distribution Width 13.7 % (11.5-14.5) Platelet Count 300 x10^3/uL (140-400) Neutrophils (%) (Auto) 76 % (31-73) Lymphocytes (%) (Auto) 12 % (24-48) Monocytes (%) (Auto) 7 % (0-9) Eosinophils (%) (Auto) 5 % (0-3) Basophils (%) (Auto) 1 % (0-3) Neutrophils # (Auto) 6.7 x10^3uL (1.8-7.7) Lymphocytes # (Auto) 1.1 x10^3/uL (1.0-4.8) Monocytes # (Auto) 0.6 x10^3/uL (0.0-1.1) Eosinophils # (Auto) 0.4 x10^3/uL (0.0-0.7) Basophils # (Auto) 0.0 x10^3/uL (0.0-0.2) Sodium Level 139 mmol/L (136-145) Potassium Level 3.5 mmol/L (3.5-5.1) Chloride Level 106 mmol/L (98-107) Carbon Dioxide Level 25 mmol/L (21-32) Anion Gap 8 (6-14) Blood Urea Nitrogen 10 mg/dL (8-26) Creatinine 0.9 mg/dL (0.7-1.3) Estimated GFR (Cockcroft-Gault) 95.5 Glucose Level 144 mg/dL (70-99) Calcium Level 8.8 mg/dL (8.5-10.1) Phosphorus Level 3.3 mg/dL (2.6-4.7) Magnesium Level 1.9 mg/dL (1.8-2.4) Test 03/13/18 08:33 O2 Saturation 95 % (92-99) Arterial Blood pH 7.41 (7.35-7.45) Arterial Blood pCO2 at Patient Temp 35 mmHg (35-46) Arterial Blood pO2 at Patient Temp 80 mmHg (85-108) Arterial Blood HCO3 22 mmol/L (21-28) Arterial Blood Base Excess -2 mmol/L (-3-3) FiO2 40 Assessment and Plan Assessmemt and Plan Problems Medical Problems: (1) Diverticulitis of colon with perforation Status: Acute Comment Review of Relevant I have reviewed the following items kalin (where applicable) has been applied. Labs Laboratory Tests Test 03/11/18 17:01 03/12/18 04:30 03/12/18 04:36 03/12/18 07:35 Glucose (Fingerstick) 86 mg/dL (70-99) 121 mg/dL (70-99) White Blood Count 9.1 x10^3/uL (4.0-11.0) Red Blood Count 3.44 x10^6/uL (4.30-5.70) Hemoglobin 10.4 g/dL (13.0-17.5) Hematocrit 31.0 % (39.0-53.0) Mean Corpuscular Volume 90 fL (79-100) Mean Corpuscular Hemoglobin 30 pg (25-35) Mean Corpuscular Hemoglobin Concent 34 g/dL (31-37) Red Cell Distribution Width 13.5 % (11.5-14.5) Platelet Count 255 x10^3/uL (140-400) Neutrophils (%) (Auto) 77 % (31-73) Lymphocytes (%) (Auto) 12 % (24-48) Monocytes (%) (Auto) 7 % (0-9) Eosinophils (%) (Auto) 3 % (0-3) Basophils (%) (Auto) 1 % (0-3) Neutrophils # (Auto) 7.0 x10^3uL (1.8-7.7) Lymphocytes # (Auto) 1.1 x10^3/uL (1.0-4.8) Monocytes # (Auto) 0.6 x10^3/uL (0.0-1.1) Eosinophils # (Auto) 0.3 x10^3/uL (0.0-0.7) Basophils # (Auto) 0.1 x10^3/uL (0.0-0.2) Sodium Level 138 mmol/L (136-145) Potassium Level 3.4 mmol/L (3.5-5.1) Chloride Level 104 mmol/L (98-107) Carbon Dioxide Level 27 mmol/L (21-32) Anion Gap 7 (6-14) Blood Urea Nitrogen 14 mg/dL (8-26) Creatinine 1.0 mg/dL (0.7-1.3) Estimated GFR (Cockcroft-Gault) 84.5 BUN/Creatinine Ratio 14 (6-20) Glucose Level 126 mg/dL (70-99) Calcium Level 8.2 mg/dL (8.5-10.1) Phosphorus Level 4.0 mg/dL (2.6-4.7) Magnesium Level 2.1 mg/dL (1.8-2.4) Total Bilirubin 0.5 mg/dL (0.2-1.0) Aspartate Amino Transf (AST/SGOT) 33 U/L (15-37) Alanine Aminotransferase (ALT/SGPT) 45 U/L (16-63) Alkaline Phosphatase 59 U/L (46-116) Total Protein 6.3 g/dL (6.4-8.2) Albumin 1.8 g/dL (3.4-5.0) Albumin/Globulin Ratio 0.4 (1.0-1.7) Triglycerides Level 265 mg/dL (0-150) O2 Saturation 90 % (92-99) Arterial Blood pH 7.38 (7.35-7.45) Arterial Blood pCO2 at Patient Temp 41 mmHg (35-46) Arterial Blood pO2 at Patient Temp 61 mmHg (85-108) Arterial Blood HCO3 24 mmol/L (21-28) Arterial Blood Base Excess -1 mmol/L (-3-3) FiO2 Test 03/12/18 11:48 03/13/18 00:21 03/13/18 05:00 03/13/18 05:11 Glucose (Fingerstick) 108 mg/dL (70-99) 118 mg/dL (70-99) 141 mg/dL (70-99) White Blood Count 8.8 x10^3/uL (4.0-11.0) Red Blood Count 3.48 x10^6/uL (4.30-5.70) Hemoglobin 10.7 g/dL (13.0-17.5) Hematocrit 31.3 % (39.0-53.0) Mean Corpuscular Volume 90 fL (79-100) Mean Corpuscular Hemoglobin 31 pg (25-35) Mean Corpuscular Hemoglobin Concent 34 g/dL (31-37) Red Cell Distribution Width 13.7 % (11.5-14.5) Platelet Count 300 x10^3/uL (140-400) Neutrophils (%) (Auto) 76 % (31-73) Lymphocytes (%) (Auto) 12 % (24-48) Monocytes (%) (Auto) 7 % (0-9) Eosinophils (%) (Auto) 5 % (0-3) Basophils (%) (Auto) 1 % (0-3) Neutrophils # (Auto) 6.7 x10^3uL (1.8-7.7) Lymphocytes # (Auto) 1.1 x10^3/uL (1.0-4.8) Monocytes # (Auto) 0.6 x10^3/uL (0.0-1.1) Eosinophils # (Auto) 0.4 x10^3/uL (0.0-0.7) Basophils # (Auto) 0.0 x10^3/uL (0.0-0.2) Sodium Level 139 mmol/L (136-145) Potassium Level 3.5 mmol/L (3.5-5.1) Chloride Level 106 mmol/L (98-107) Carbon Dioxide Level 25 mmol/L (21-32) Anion Gap 8 (6-14) Blood Urea Nitrogen 10 mg/dL (8-26) Creatinine 0.9 mg/dL (0.7-1.3) Estimated GFR (Cockcroft-Gault) 95.5 Glucose Level 144 mg/dL (70-99) Calcium Level 8.8 mg/dL (8.5-10.1) Phosphorus Level 3.3 mg/dL (2.6-4.7) Magnesium Level 1.9 mg/dL (1.8-2.4) Test 03/13/18 08:33 O2 Saturation 95 % (92-99) Arterial Blood pH 7.41 (7.35-7.45) Arterial Blood pCO2 at Patient Temp 35 mmHg (35-46) Arterial Blood pO2 at Patient Temp 80 mmHg (85-108) Arterial Blood HCO3 22 mmol/L (21-28) Arterial Blood Base Excess -2 mmol/L (-3-3) FiO2 40 Laboratory Tests Test 03/12/18 11:48 03/13/18 00:21 03/13/18 05:00 03/13/18 05:11 Glucose (Fingerstick) 108 mg/dL (70-99) 118 mg/dL (70-99) 141 mg/dL (70-99) White Blood Count 8.8 x10^3/uL (4.0-11.0) Red Blood Count 3.48 x10^6/uL (4.30-5.70) Hemoglobin 10.7 g/dL (13.0-17.5) Hematocrit 31.3 % (39.0-53.0) Mean Corpuscular Volume 90 fL (79-100) Mean Corpuscular Hemoglobin 31 pg (25-35) Mean Corpuscular Hemoglobin Concent 34 g/dL (31-37) Red Cell Distribution Width 13.7 % (11.5-14.5) Platelet Count 300 x10^3/uL (140-400) Neutrophils (%) (Auto) 76 % (31-73) Lymphocytes (%) (Auto) 12 % (24-48) Monocytes (%) (Auto) 7 % (0-9) Eosinophils (%) (Auto) 5 % (0-3) Basophils (%) (Auto) 1 % (0-3) Neutrophils # (Auto) 6.7 x10^3uL (1.8-7.7) Lymphocytes # (Auto) 1.1 x10^3/uL (1.0-4.8) Monocytes # (Auto) 0.6 x10^3/uL (0.0-1.1) Eosinophils # (Auto) 0.4 x10^3/uL (0.0-0.7) Basophils # (Auto) 0.0 x10^3/uL (0.0-0.2) Sodium Level 139 mmol/L (136-145) Potassium Level 3.5 mmol/L (3.5-5.1) Chloride Level 106 mmol/L (98-107) Carbon Dioxide Level 25 mmol/L (21-32) Anion Gap 8 (6-14) Blood Urea Nitrogen 10 mg/dL (8-26) Creatinine 0.9 mg/dL (0.7-1.3) Estimated GFR (Cockcroft-Gault) 95.5 Glucose Level 144 mg/dL (70-99) Calcium Level 8.8 mg/dL (8.5-10.1) Phosphorus Level 3.3 mg/dL (2.6-4.7) Magnesium Level 1.9 mg/dL (1.8-2.4) Test 03/13/18 08:33 O2 Saturation 95 % (92-99) Arterial Blood pH 7.41 (7.35-7.45) Arterial Blood pCO2 at Patient Temp 35 mmHg (35-46) Arterial Blood pO2 at Patient Temp 80 mmHg (85-108) Arterial Blood HCO3 22 mmol/L (21-28) Arterial Blood Base Excess -2 mmol/L (-3-3) FiO2 40 Microbiology 03/09/18 Blood Culture - Preliminary, Resulted NO GROWTH AFTER 3 DAYS Medications Current Medications Sodium Chloride (Normal Saline Flush) 3 ml QSHIFT PRN IV AFTER MEDS AND BLOOD DRAWS; Start 03/07/18 at 11:00 Sodium Chloride 1,000 ml @ 1,000 mls/hr Q1H IV Last administered on 03/07/18at 11:32; Start 03/07/18 at 11:00; Stop 03/07/18 at 11:59; Status DC Iohexol (Omnipaque 300 Mg/ml) 75 ml 1X ONCE IV Last administered on 03/07/18at 12:46; Start 03/07/18 at 11:15; Stop 03/07/18 at 11:16; Status DC Info (CONTRAST GIVEN -- Rx MONITORING) 1 each PRN DAILY PRN MC SEE COMMENTS; Start 03/07/18 at 11:15; Stop 03/09/18 at 11:14; Status DC Sodium Chloride 1,000 ml @ 1,000 mls/hr 1X ONCE IV Last administered on at 12:37; Start 03/07/18 at 12:00; Stop 03/07/18 at 12:59; Status DC Fentanyl Citrate (Fentanyl 2ml Vial) 50 mcg 1X ONCE IV Last administered on 03/07/18at 13:07; Start 03/07/18 at 13:00; Stop 03/07/18 at 13:01; Status DC Metronidazole 100 ml @ 100 mls/hr 1X ONCE IV ; Start 03/07/18 at 13:30; Stop at 14:29; Status DC Ciprofloxacin/ Dextrose 200 ml @ 200 mls/hr ONCE STAT IV Last administered on 03/07/18at 13:42; Start 03/07/18 at 13:12; Stop 03/07/18 at 14:11; Status DC Piperacillin Sod/ Tazobactam Sod 3.375 gm/Sodium Chloride 50 ml @ 100 mls/hr 1X ONCE IV Last administered on 03/07/18at 14:43; Start 03/07/18 at 14:30; Stop 03/07/18 at 14:59; Status DC Diphenhydramine HCl (Benadryl) 50 mg 1X ONCE IVP Last administered on at 14:33; Start 03/07/18 at 14:15; Stop 03/07/18 at 14:16; Status DC Fentanyl Citrate (Fentanyl 2ml Vial) 25 mcg 1X ONCE IV ; Start 03/07/18 at 14:15 ; Stop 03/07/18 at 14:16; Status Cancel Morphine Sulfate (Morphine Sulfate) 4 mg 1X ONCE IV Last administered on at 14:35; Start 03/07/18 at 14:30; Stop 03/07/18 at 14:31; Status DC Ondansetron HCl (Zofran) 4 mg PRN Q8HRS PRN IV NAUSEA/VOMITING; Start 03/07/18 at 14:30; Stop 03/08/18 at 14:29; Status DC Morphine Sulfate (Morphine Sulfate) 4 mg PRN Q2HR PRN IV PAIN Last administered on 03/08/18at 08:20; Start 03/07/18 at 14:30; Stop 03/08/18 at 14:29; Status DC Piperacillin Sod/ Tazobactam Sod 3.375 gm/Sodium Chloride 50 ml @ 100 mls/hr Q6HRS IV Last administered on 03/13/18at 06:05; Start 03/07/18 at 18:00 Metronidazole 100 ml @ 100 mls/hr Q8HRS IV Last administered on 03/09/18at 11:19 ; Start 03/07/18 at 22:00; Stop 03/09/18 at 15:10; Status DC Sodium Chloride 500 ml @ 500 mls/hr 1X ONCE IV Last administered on 03/07/18at 16:45; Start 03/07/18 at 16:45; Stop 03/07/18 at 17:44; Status DC Amino Acids/ Glycerin/ Electrolytes 1,000 ml @ 80 mls/hr [id number] IV Last administered on 03/11/18at 07:47; Start 03/07/18 at 16:45; Stop 03/11/18 at 20:21; Status DC Acetaminophen (Tylenol) 650 mg PRN Q6HRS PRN PO fever ; Start 03/07/18 at 18:00 Pantoprazole Sodium (PROTONIX VIAL for IV PUSH) 40 mg DAILYAC IVP Last administered on 03/13/18at 11:06; Start 03/08/18 at 07:45 Morphine Sulfate (Morphine Sulfate) 4 mg PRN Q2HR PRN IV MODRATE-SEVERE PAIN 2ND CHOICE Last administered on 03/09/18at 04:26; Start 03/08/18 at 14:45 Lorazepam (Ativan) 1 mg PRN Q4HRS PRN IV ANXIETY / AGITATION Last administered on 03/08/18at 21:41; Start 03/08/18 at 20:30 Ondansetron HCl (Zofran) 4 mg PRN Q6HRS PRN IV NAUSEA/VOMITING 1ST CHOICE Last administered on 03/09/18at 02:07; Start 03/09/18 at 02:00 Etomidate (Amidate) 20 mg STK-MED ONCE IV ; Start 03/09/18 at 06:55; Stop at 06:56; Status DC Norepinephrine Bitartrate 250 ml @ As Directed STK-MED ONCE IV ; Start 03/09/18 at 06:55; Stop 03/09/18 at 06:56; Status DC Midazolam HCl (Versed) 5 mg STK-MED ONCE .ROUTE ; Start 03/09/18 at 06:55; Stop 03/09/18 at 06:56; Status DC Fentanyl Citrate (Fentanyl 2ml Vial) 100 mcg STK-MED ONCE .ROUTE ; Start at 06:55; Stop 03/09/18 at 06:56; Status DC Succinylcholine Chloride (Anectine) 200 mg STK-MED ONCE .ROUTE ; Start 03/09/18 at 06:56; Stop 03/09/18 at 06:57; Status DC Fentanyl Citrate 30 ml @ 0 mls/hr CONT PRN IV PER PROTOCOL Last administered on 03/13/18at 03:06; Start 03/09/18 at 07:00 Fentanyl Citrate (Fentanyl 2ml Vial) 25 mcg PRN Q1HR PRN IV MILD PAIN; Start at 07:00 Fentanyl Citrate (Fentanyl 2ml Vial) 50 mcg PRN Q1HR PRN IV MOD TO SEVERE PAIN ; Start 03/09/18 at 07:00 Chlorhexidine Gluconate (Peridex) 15 ml BID MM Last administered on 03/13/18at 11 :07; Start 03/09/18 at 09:00 Midazolam HCl (Versed) 2 mg PRN Q30MIN PRN IV SEDATION; Start 03/09/18 at 07:00 ; Stop 03/10/18 at 10:26; Status DC Midazolam HCl 100 ml @ 0 mls/hr CONT PRN IV PER PROTOCOL Last administered on at 14:07; Start 03/09/18 at 07:00 Enoxaparin Sodium (Lovenox 40mg Syringe) 40 mg Q12H SQ Last administered on 03/10at 09:31; Start 03/09/18 at 09:00; Stop 03/10/18 at 12:01; Status DC Sodium Chloride 1,000 ml @ 75 mls/hr [id number] IV Last administered on 03/13/18at 11:07; Start 03/09/18 at 10:15 Sodium Chloride 1,000 ml @ 1,000 mls/hr 1X ONCE IV Last administered on at 10:15; Start 03/09/18 at 10:15; Stop 03/09/18 at 11:14; Status DC Norepinephrine Bitartrate 250 ml @ As Directed STK-MED ONCE IV ; Start 03/09/18 at 10:37; Stop 03/09/18 at 10:38; Status DC Phenylephrine HCl 20 mg/Sodium Chloride 252 ml @ 22.68 mls/ hr 1X ONCE IV ; Start 03/09/18 at 10:45; Stop 03/09/18 at 21:51; Status DC Iohexol (Omnipaque 300 Mg/ml) 75 ml 1X ONCE IV ; Start 03/09/18 at 11:30; Stop 03/09/18 at 11:35; Status DC Micafungin Sodium 100 mg/Dextrose 100 ml @ 100 mls/hr Q24H IV Last administered on 03/12/18at 16:06; Start 03/09/18 at 16:00 Linezolid/Dextrose 300 ml @ 300 mls/hr Q12H IV Last administered on 03/13/18at 04:44; Start 03/09/18 at 17:00 Norepinephrine Bitartrate 250 ml @ 1.875 mls/ hr CONT PRN IV SEE I/O RECORD Last administered on 03/09/18at 16:18; Start 03/09/18 at 16:00 Furosemide (Lasix) 40 mg 1X ONCE IVP Last administered on 03/10/18at 08:49; Start 03/10/18 at 09:00; Stop 03/10/18 at 09:01; Status DC Perflutren Protein Type A Microsphe (Optison) 0.66 mg STK-MED ONCE IV ; Start at 10:23; Stop 03/10/18 at 10:25; Status DC Enoxaparin Sodium (Lovenox Per Pharmacy Treatment Dosing) 1 each PRN DAILY PRN MC SEE COMMENTS; Start 03/10/18 at 12:00; Stop 03/11/18 at 12:50; Status DC Enoxaparin Sodium (Lovenox 150mg Syringe) 130 mg Q12H SQ Last administered on at 07:48; Start 03/10/18 at 21:00; Stop 03/11/18 at 12:51; Status DC Enoxaparin Sodium (Lovenox 100mg Syringe) 90 mg 1X ONCE SQ Last administered on 03/10/18at 13:53; Start 03/10/18 at 12:30; Stop 03/10/18 at 12:31; Status DC Perflutren Protein Type A Microsphe (Optison) 0.66 mg 1X ONCE IV Last administered on 03/10/18at 12:55; Start 03/10/18 at 13:00; Stop 03/10/18 at 13:01; Status DC Iohexol (Omnipaque 300 Mg/ml) 75 ml 1X ONCE IV Last administered on 03/11/18at 10:00; Start 03/11/18 at 09:00; Stop 03/11/18 at 09:01; Status DC Info (CONTRAST GIVEN -- Rx MONITORING) 1 each PRN DAILY PRN MC SEE COMMENTS; Start 03/11/18 at 09:00; Stop 03/13/18 at 08:59; Status DC Norepinephrine Bitartrate (Levophed 8mg/ 250ml Premix Drip) 8 mg STK-MED ONCE IV ; Start 03/09/18 at 07:00; Stop 03/11/18 at 08:58; Status DC Insulin Human Lispro (HumaLOG) 0-5 UNITS TIDWMEALS SQ ; Start 03/11/18 at 12:00 Dextrose (Dextrose 50%-Water Syringe) 12.5 gm PRN Q15MIN PRN IV SEE COMMENTS; Start 03/11/18 at 09:15 Potassium Chloride/Water 50 ml @ 50 mls/hr 1X ONCE IV Last administered on 03/11at 09:43; Start 03/11/18 at 10:00; Stop 03/11/18 at 10:59; Status DC Info (Anti-Coagulation Monitoring By Pharmacy) 1 each PRN DAILY PRN MC SEE COMMENTS; Start 03/11/18 at 09:30; Stop 03/11/18 at 12:51; Status DC Info (Tpn Per Pharmacy) 1 each PRN DAILY PRN MC SEE COMMENTS Last administered on 03/12/18at 10:18; Start 03/11/18 at 11:15 Magnesium Sulfate 50 ml @ 25 mls/hr 1X ONCE IV Last administered on 03/11/18at 15:09; Start 03/11/18 at 16:00; Stop 03/11/18 at 17:59; Status DC Potassium Phosphate 13.6 mmol/Dextrose 104.5333 ml @ 52.267 m... ONCE ONCE IV Last administered on 03/11/18at 17:11; Start 03/11/18 at 18:00; Stop 03/11/18 at 19:59; Status DC Norepinephrine Bitartrate (Levophed 8mg/ 250ml Premix Drip) 8 mg STK-MED ONCE IV ; Start 03/09/18 at 11:00; Stop 03/11/18 at 12:37; Status DC Enoxaparin Sodium (Lovenox 40mg Syringe) 40 mg Q12HR SQ Last administered on 03/13/18at 11:06; Start 03/11/18 at 21:00 Sodium Chloride 90 meq/Potassium Chloride 50 meq/ Potassium Phosphate 13.6 mmol/ Magnesium Sulfate 10 meq/ Multivitamins 10 ml/Chromium/ Copper/Manganese/ Seleni /Zn 1 ml/ Total Parenteral Nutrition/Amino Acids/Dextrose/ Fat Emulsion Intravenous 1,800 ml @ 75 mls/hr TPN CONT IV Last administered on 03/11/18at 21 :44; Start 03/11/18 at 22:00; Stop 03/12/18 at 21:59; Status DC Potassium Chloride/Water 50 ml @ 50 mls/hr 1X ONCE IV Last administered on 03/12at 10:40; Start 03/12/18 at 09:30; Stop 03/12/18 at 10:29; Status DC Sodium Chloride 90 meq/Potassium Acetate 70 meq/ Potassium Phosphate 10 mmol/ Magnesium Sulfate 10 meq/ Multivitamins 10 ml/Chromium/ Copper/Manganese/ Seleni /Zn 1 ml/ Total Parenteral Nutrition/Amino Acids/Dextrose/ Fat Emulsion Intravenous 1,800 ml @ 75 mls/hr TPN CONT IV ; Start 03/12/18 at 22:00; Stop at 22:00; Status DC Sodium Chloride 90 meq/Potassium Chloride 70 meq/ Potassium Phosphate 10 mmol/ Magnesium Sulfate 10 meq/ Multivitamins 10 ml/Chromium/ Copper/Manganese/ Seleni /Zn 1 ml/ Total Parenteral Nutrition/Amino Acids/Dextrose/ Fat Emulsion Intravenous 1,800 ml @ 75 mls/hr TPN CONT IV Last administered on 03/12/18at 21 :41; Start 03/12/18 at 22:00; Stop 03/13/18 at 21:59 Vitals/I & O Vital Sign - Last 24 Hours 03/12/18 03/12/18 03/12/18 03/12/18 12:00 12:00 12:20 13:00 Temp 99.7 99.7 Pulse 93 95 Resp 22 20 20 B/P (MAP) 137/85 (102) 121/73 (89) Pulse Ox 94 95 94 O2 Delivery Mechanical Ventilator Ventilator Ventilator Ventilator 03/12/18 03/12/18 03/12/18 03/12/18 13:13 14:00 15:00 15:05 Pulse 84 78 Resp 18 18 B/P (MAP) 138/74 (95) 117/70 (86) Pulse Ox 96 96 98 98 O2 Delivery Ventilator Ventilator Ventilator Ventilator 03/12/18 03/12/18 03/12/18 03/12/18 16:00 16:00 17:00 17:36 Temp 99.9 99.9 Pulse 83 86 Resp 18 19 B/P (MAP) 130/85 (100) 126/89 (101) Pulse Ox 95 96 97 O2 Delivery Ventilator Mechanical Ventilator Ventilator Ventilator 03/12/18 03/12/18 03/12/18 03/12/18 18:00 19:00 19:25 20:00 Pulse 88 86 Resp 19 18 B/P (MAP) 124/79 (94) 126/80 (95) Pulse Ox 96 94 95 O2 Delivery Ventilator Ventilator Ventilator Mechanical Ventilator 03/12/18 03/12/18 03/12/18 03/12/18 20:00 21:00 22:00 22:17 Temp 99.9 99.9 Pulse 88 80 80 Resp 18 18 18 B/P (MAP) 128/74 (92) 116/61 (79) 120/74 (89) Pulse Ox 95 96 96 95 O2 Delivery Ventilator Ventilator Ventilator Ventilator 03/12/18 03/13/18 03/13/18 03/13/18 23:00 00:00 00:00 01:00 Temp 99.6 99.6 Pulse 76 83 77 Resp 18 18 18 B/P (MAP) 118/62 (80) 138/88 (105) 115/62 (79) Pulse Ox 96 95 96 O2 Delivery Ventilator Ventilator Mechanical Ventilator Ventilator 03/13/18 03/13/18 03/13/18 03/13/18 01:03 02:00 03:00 03:06 Pulse 80 74 Resp 18 18 18 B/P (MAP) 115/63 (80) 120/69 (86) Pulse Ox 95 96 96 97 O2 Delivery Ventilator Ventilator Ventilator 03/13/18 03/13/18 03/13/18 03/13/18 03:25 03:36 04:00 04:00 Temp 99.3 99.3 Pulse 73 Resp 18 18 B/P (MAP) 120/66 (84) Pulse Ox 96 97 98 O2 Delivery Ventilator Ventilator Ventilator Mechanical Ventilator 03/13/18 03/13/18 03/13/18 03/13/18 05:00 05:30 06:00 08:00 Pulse 72 78 Resp 18 B/P (MAP) 113/69 (84) 120/66 (84) Pulse Ox 96 97 96 96 O2 Delivery Ventilator Ventilator Ventilator Ventilator Intake and Output 03/12/18 03/12/18 03/13/18 15:00 23:00 07:00 Intake Total 100 ml 1044.57 ml 2412 ml Output Total 680 ml 1115 ml 875 ml Balance -580 ml -70.43 ml 1537 ml KELBY CEDEÑO MD Mar 13, 2018 11:45
[2018-03-13] MEDS ORDERED: BENZOCAINE ONE 20% MUCOSAL SPRAY. MM ×3 (12:45)
[2018-03-13] MEDS: TPN PER PHARMACY MC PRN (12:54)
[2018-03-13 13:13] LABS: BASE EXCESS ABG -3 mmol/L (-3-3); HCO3 ABG 27 mmol/L (21-28); PO2 ABG 87 mmHg (85-108); SAT O2 ABG 94 % (92-99)
[2018-03-13 13:17] LABS: PCO2 ABG 69 mmHg (35-46)
[2018-03-13 13:18] LABS: FIO2 ABG 40
[2018-03-13] MEDS ORDERED: PROPOFOL 100 ML IV ONE (15:47)
[2018-03-13] MEDS: MICAFUNGIN 100 MG in IV DEXTROSE 5% 100ML 100 ML IV SCH (16:12)
--- NOTE | 2018-03-13 17:34 | EKG ---
[facility] [address] [place] [address] Test Date: 2018-03-13 Test Time: 16:38:20 Pat Name: ROMÁN CALI Department: Room: 113 1 Gender: M [employer]: : [id number] Requested By: KELBY CEDEÑO Order Number: [id number] Reading MD: Measurements Intervals [place] Rate: 67 P: MT: QRS: 20 QRSD: 92 T: -5 QT: 414 QTc: 440 Interpretive Statements IRREGULAR RHYTHM, NO P-WAVE FOUND QRS(T) CONTOUR ABNORMALITY CONSIDER INFERIOR MYOCARDIAL DAMAGE T ABNORMALITY IN ANTEROSEPTAL LEADS ABNORMAL ECG RI6.01 Compared to ECG 02/08/2015 04:34:43 T-wave abnormality now present Sinus rhythm no longer present
[2018-03-13] MEDS: PROPOFOL 100 ML IV PRN (19:56)
[2018-03-13] MEDS: PROMETH/CODEINE 6.25/10MG 5 ML SYRUP. PO PRN (20:08)
[2018-03-13] MEDS ORDERED: [UNRECOGNIZED DRUG - OTHER] IV SCH ×9 (22:00)
[2018-03-13] MEDS ORDERED: DEXTROSE 70% IV SCH ×9 (22:00)
[2018-03-13] MEDS ORDERED: TOTAL PARENTERAL NUTRITION IV SCH ×9 (22:00)
[2018-03-13] MEDS ORDERED: AMINO ACIDS IV SCH ×9 (22:00)
[2018-03-14] VITALS (24 sets, daily range): BP systolic 97–200; BP diastolic 59–96
[2018-03-14] MEDS: PIPERACILLIN/TAZOBACTAM 3.375 GM in IV NORMAL SALINE 50ML 50 ML IV SCH ×5 (00:06→23:17)
[2018-03-14] MEDS: PROPOFOL 100 ML IV PRN ×2 (00:08→05:04)
[2018-03-14] MEDS: IV NORMAL SALINE 1000ML BAG 1,000 ML IV SCH (02:48)
[2018-03-14 06:33] LABS: BASO % 0 % (0-3); EOS # 0.4 x10^3/uL (0.0-0.7); EOS % 6 % (0-3); HEMATOCRIT 34.7 % (39.0-53.0); HEMOGLOBIN 11.5 g/dL (13.0-17.5); LYMPH # 1.1 x10^3/uL (1.0-4.8); LYMPH % 14 % (24-48); MEAN CORPUSCULAR HEMOGLOBIN 30 pg (25-35); MEAN CORPUSCULAR HGB CONC 33 g/dL (31-37); MEAN CORPUSCULAR VOLUME 90 fL (79-100); MONO # 0.7 x10^3/uL (0.0-1.1); MONO % 9 % (0-9); NEUT # 5.5 x10^3uL (1.8-7.7); NEUT % 71 % (31-73); PLATELET COUNT 352 x10^3/uL (140-400); RED BLOOD COUNT 3.84 x10^6/uL (4.30-5.70); RED CELL DISTRIBUTION WIDTH 14.2 % (11.5-14.5); WHITE BLOOD COUNT 7.7 x10^3/uL (4.0-11.0)
[2018-03-14 07:02] LABS: CALCIUM 8.9 mg/dL (8.5-10.1); CREATININE 0.8 mg/dL (0.7-1.3); GFR 109.4; MAGNESIUM 1.9 mg/dL (1.8-2.4); PHOSPHORUS 3.6 mg/dL (2.6-4.7); POTASSIUM 3.8 mmol/L (3.5-5.1)
[2018-03-14] MEDS: INSULIN LISPRO 300 UNITS/3 ML INSULN.PEN. SQ SCH ×3 (08:00→17:00)
[2018-03-14] MEDS: PANTOPRAZOLE IV PUSH 40 MG VIAL. IVP SCH (08:10)
[2018-03-14] MEDS: PROMETH/CODEINE 6.25/10MG 5 ML SYRUP. PO PRN (08:10)
[2018-03-14] MEDS: CHLORHEXIDINE 0.12% 15 ML MOUTHWASH. MM SCH ×2 (08:11→19:41)
[2018-03-14] MEDS: ENOXAPARIN 40 MG/0.4 ML SYRINGE. SQ SCH ×2 (08:11→19:41)
[2018-03-14 08:17] LABS: BASE EXCESS ABG -4 mmol/L (-3-3); HCO3 ABG 20 mmol/L (21-28); PCO2 ABG 32 mmHg (35-46); PO2 ABG 70 mmHg (85-108); SAT O2 ABG 94 % (92-99)
[2018-03-14 08:19] LABS: FIO2 ABG 40
--- NOTE | 2018-03-14 08:24 | RAD ---
Portable chest, 03/14/2018: HISTORY: Respiratory failure Comparison is made to yesterday's study. The ET tube tip lies well above the santa. An NG tube extends into the stomach. The right sided PICC now extends into the right lower neck in a jugular vein. This PICC tip has been shown to be mobile over the last couple exams, presumably changing location based on the position of the patient's arm and shoulder. The heart is enlarged. There is moderate persistent left basilar infiltrate obscuring the hemidiaphragm. Pleural fluid cannot be excluded. There are mild unchanged streaky right infrahilar opacities. No new pulmonary abnormality is seen. IMPRESSION: 1. The right PICC now extends into the right jugular vein. 2. No other significant interval change since yesterday's study. Electronically signed by: Francisco Ruffin MD (03/14/2018 8:20 AM) [facility]
[2018-03-14] MEDS: hydrALAZINE 20 MG/ML VIAL. IVP PRN ×2 (09:02→14:59)
--- NOTE | 2018-03-14 09:13 | PDOC ---
CARDIO Progress Notes Date and Time Date of Service 03/14/2018 Time of Evaluation 0908 Subjective Subjective: Other (awake; remains intubated) Vitals Vitals Vital Signs Date Time Temp Pulse Resp B/P (MAP) Pulse Ox O2 Delivery O2 Flow Rate FiO2 03/14/18 09:02 75 166/88 03/14/18 08:00 Mechanical Ventilator 03/14/18 08:00 18 95 03/14/18 07:00 98.0 98.0 Weight Weight [ ] Input and Output Intake and Output Intake and Output 03/14/18 07:00 Intake Total 2362 ml Output Total 4020 ml Balance -1658 ml Intake Oral 0 ml IV Total 2362 ml Output Urine Total 3770 ml Gastric Drainage Total 250 ml Laboratory Labs Laboratory Tests Test 03/13/18 13:00 03/13/18 17:20 03/13/18 21:58 03/14/18 06:15 O2 Saturation 94 % (92-99) Arterial Blood pH 7.21 (7.35-7.45) Arterial Blood pCO2 at Patient Temp 69 mmHg (35-46) Arterial Blood pO2 at Patient Temp 87 mmHg (85-108) Arterial Blood HCO3 27 mmol/L (21-28) Arterial Blood Base Excess -3 mmol/L (-3-3) FiO2 40 Glucose (Fingerstick) 123 mg/dL (70-99) 115 mg/dL (70-99) White Blood Count 7.7 x10^3/uL (4.0-11.0) Red Blood Count 3.84 x10^6/uL (4.30-5.70) Hemoglobin 11.5 g/dL (13.0-17.5) Hematocrit 34.7 % (39.0-53.0) Mean Corpuscular Volume 90 fL (79-100) Mean Corpuscular Hemoglobin 30 pg (25-35) Mean Corpuscular Hemoglobin Concent 33 g/dL (31-37) Red Cell Distribution Width 14.2 % (11.5-14.5) Platelet Count 352 x10^3/uL (140-400) Neutrophils (%) (Auto) 71 % (31-73) Lymphocytes (%) (Auto) 14 % (24-48) Monocytes (%) (Auto) 9 % (0-9) Eosinophils (%) (Auto) 6 % (0-3) Basophils (%) (Auto) 0 % (0-3) Neutrophils # (Auto) 5.5 x10^3uL (1.8-7.7) Lymphocytes # (Auto) 1.1 x10^3/uL (1.0-4.8) Monocytes # (Auto) 0.7 x10^3/uL (0.0-1.1) Eosinophils # (Auto) 0.4 x10^3/uL (0.0-0.7) Basophils # (Auto) 0.0 x10^3/uL (0.0-0.2) Sodium Level 142 mmol/L (136-145) Potassium Level 3.8 mmol/L (3.5-5.1) Chloride Level 106 mmol/L (98-107) Carbon Dioxide Level 27 mmol/L (21-32) Anion Gap 9 (6-14) Blood Urea Nitrogen 11 mg/dL (8-26) Creatinine 0.8 mg/dL (0.7-1.3) Estimated GFR (Cockcroft-Gault) 109.4 Glucose Level 140 mg/dL (70-99) Calcium Level 8.9 mg/dL (8.5-10.1) Phosphorus Level 3.6 mg/dL (2.6-4.7) Magnesium Level 1.9 mg/dL (1.8-2.4) Test 03/14/18 08:00 O2 Saturation 94 % (92-99) Arterial Blood pH 7.41 (7.35-7.45) Arterial Blood pCO2 at Patient Temp 32 mmHg (35-46) Arterial Blood pO2 at Patient Temp 70 mmHg (85-108) Arterial Blood HCO3 20 mmol/L (21-28) Arterial Blood Base Excess -4 mmol/L (-3-3) FiO2 40 Microbiology Micro Microbiology 03/09/18 Blood Culture - Preliminary, Resulted NO GROWTH AFTER 4 DAYS Physical Exam HEENT: Neck Supple W Full Motion Chest: Symmetric LUNGS: Other (coarse) Heart: S1S2, RRR, no murmurs Abdomen: Soft N/T Extremities: No Edema Neurology: alert, follow commands Assessment Assessment 1. Acute hypoxic resp failure likely due to ARDS --likely to be extubated today 2. 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 of chronic depressed LV function -- has reported echo/stress test a couple of years ago with moderate EF --MPI early next week vs as outpatient 3. NSVT --short run last night 4. HTN --use prn hydralazine for now 5. divertic perf with sepsis ALLIE DAVILA STULL INSTALLER Mar 14, 2018 09:13
--- NOTE | 2018-03-14 09:16 | PDOC ---
Infectious Disease Note Subjective Subjective Intubated but awake. States ok No nausea and pain controlled Some Flatus ROS ROS o/w neg Vital Sign Vital Signs Vital Signs Date Time Temp Pulse Resp B/P (MAP) Pulse Ox O2 Delivery O2 Flow Rate FiO2 03/14/18 08:00 Mechanical Ventilator 03/14/18 08:00 75 18 166/88 (114) 95 03/14/18 07:00 98.0 98.0 Physical Exam PHYSICAL EXAM GENERAL: Intubated alert with mitt left hand. looks well HENT: Pupils equal, nml conj. OGT & ETT NECK: no JVD LUNGS: CTA CV: Distant heart tones ABDOMEN:n Obese, hypoactive bowel sounds, soft, no grimace to light palpation. mild distension : Galvan in place EXT: No gross edema or cyanosis. right groin dressing clean SKIN: warm without rash Right PICC line - clean Labs Lab Laboratory Tests Test 03/13/18 13:00 03/13/18 17:20 03/13/18 21:58 03/14/18 06:15 O2 Saturation 94 % (92-99) Arterial Blood pH 7.21 (7.35-7.45) Arterial Blood pCO2 at Patient Temp 69 mmHg (35-46) Arterial Blood pO2 at Patient Temp 87 mmHg (85-108) Arterial Blood HCO3 27 mmol/L (21-28) Arterial Blood Base Excess -3 mmol/L (-3-3) FiO2 40 Glucose (Fingerstick) 123 mg/dL (70-99) 115 mg/dL (70-99) White Blood Count 7.7 x10^3/uL (4.0-11.0) Red Blood Count 3.84 x10^6/uL (4.30-5.70) Hemoglobin 11.5 g/dL (13.0-17.5) Hematocrit 34.7 % (39.0-53.0) Mean Corpuscular Volume 90 fL (79-100) Mean Corpuscular Hemoglobin 30 pg (25-35) Mean Corpuscular Hemoglobin Concent 33 g/dL (31-37) Red Cell Distribution Width 14.2 % (11.5-14.5) Platelet Count 352 x10^3/uL (140-400) Neutrophils (%) (Auto) 71 % (31-73) Lymphocytes (%) (Auto) 14 % (24-48) Monocytes (%) (Auto) 9 % (0-9) Eosinophils (%) (Auto) 6 % (0-3) Basophils (%) (Auto) 0 % (0-3) Neutrophils # (Auto) 5.5 x10^3uL (1.8-7.7) Lymphocytes # (Auto) 1.1 x10^3/uL (1.0-4.8) Monocytes # (Auto) 0.7 x10^3/uL (0.0-1.1) Eosinophils # (Auto) 0.4 x10^3/uL (0.0-0.7) Basophils # (Auto) 0.0 x10^3/uL (0.0-0.2) Sodium Level 142 mmol/L (136-145) Potassium Level 3.8 mmol/L (3.5-5.1) Chloride Level 106 mmol/L (98-107) Carbon Dioxide Level 27 mmol/L (21-32) Anion Gap 9 (6-14) Blood Urea Nitrogen 11 mg/dL (8-26) Creatinine 0.8 mg/dL (0.7-1.3) Estimated GFR (Cockcroft-Gault) 109.4 Glucose Level 140 mg/dL (70-99) Calcium Level 8.9 mg/dL (8.5-10.1) Phosphorus Level 3.6 mg/dL (2.6-4.7) Magnesium Level 1.9 mg/dL (1.8-2.4) Test 03/14/18 08:00 O2 Saturation 94 % (92-99) Arterial Blood pH 7.41 (7.35-7.45) Arterial Blood pCO2 at Patient Temp 32 mmHg (35-46) Arterial Blood pO2 at Patient Temp 70 mmHg (85-108) Arterial Blood HCO3 20 mmol/L (21-28) Arterial Blood Base Excess -4 mmol/L (-3-3) FiO2 40 Micro Microbiology 03/09/18 Blood Culture - Preliminary, Resulted NO GROWTH AFTER [address] 03/11 IMPRESSION: 1. Life support devices in appropriate position. 2. No large central pulmonary embolus. Lobar, segmental, subsegmental pulmonary arteries cannot be evaluated due to limited contrast opacification. 3. Moderate consolidations with air bronchograms in the bilateral lower lobes. Considerations include aspiration, pneumonia, or atelectasis. 4. Persistent diverticulitis of the sigmoid colon. There is a small incompletely formed probable peridiverticular abscess. 5. Fatty infiltration of the liver. Objective Assessment s/p code blue, 03/09 Sepsis w/ hypotension requiring vasopressor support previously but now off. - BC from 03/07 NGTD. Fever curve improving Leukocytosis - better Acute diverticulitis with microperforation -gen surgery following, on bowel rest Allergy Cipro - rash RONNY Acute respiratory failure ? ARDS developing -improving per Dr. Galo Substance abuse. urine tox + cocaine and marijuana 03/07 & 03/09 PUD / GERD Etoh dependence Morbid obesity, BMI 41 Hypertension Recently hosp [facility] & EGD- ulcers Rx on omeprazole per Plan Plan of Care Continue Zosyn and micafungin D/w family. He has not had a lot of abx exposure or infections/MRSA screen neg so will d/c Zyvox to de-escalate Blood cults 03/07 neg and Repeat BC from 03/09 neg so far Monitor labs/VSS CT scan in am per Gen surg Still critically ill D/w /brother D/w LAURA MORENO MD Mar 14, 2018 09:16
[2018-03-14] MEDS ORDERED: IPRATRPIUM/ALBUTEROL 0.5/2.5MG 3 ML NEBU. NEB ONE (09:30)
[2018-03-14] MEDS ORDERED: AMLO5TAB2 PO (09:56)
[2018-03-14] MEDS ORDERED: OMEP40CA5 PO (09:56)
--- NOTE | 2018-03-14 10:27 | PDOC ---
PULMONARY PROGRESS NOTES Subjective FAILED CPAP YESTERDAY HAS BEEN VERY AGITATED ONCE AWAKE, INCREASE ET SECRETIONS Vitals Vital Signs Date Time Temp Pulse Resp B/P (MAP) Pulse Ox O2 Delivery O2 Flow Rate FiO2 03/14/18 10:00 102 18 200/89 (126) 95 Ventilator 03/14/18 07:00 98.0 98.0 Lungs: Clear Cardiovascular: S1, S2 Abdomen: Soft Extremities: Other (EDEMA) Skin: Warm Labs Laboratory Tests Test 03/12/18 11:48 03/13/18 00:21 03/13/18 05:00 03/13/18 05:11 Glucose (Fingerstick) 108 mg/dL (70-99) 118 mg/dL (70-99) 141 mg/dL (70-99) White Blood Count 8.8 x10^3/uL (4.0-11.0) Red Blood Count 3.48 x10^6/uL (4.30-5.70) Hemoglobin 10.7 g/dL (13.0-17.5) Hematocrit 31.3 % (39.0-53.0) Mean Corpuscular Volume 90 fL (79-100) Mean Corpuscular Hemoglobin 31 pg (25-35) Mean Corpuscular Hemoglobin Concent 34 g/dL (31-37) Red Cell Distribution Width 13.7 % (11.5-14.5) Platelet Count 300 x10^3/uL (140-400) Neutrophils (%) (Auto) 76 % (31-73) Lymphocytes (%) (Auto) 12 % (24-48) Monocytes (%) (Auto) 7 % (0-9) Eosinophils (%) (Auto) 5 % (0-3) Basophils (%) (Auto) 1 % (0-3) Neutrophils # (Auto) 6.7 x10^3uL (1.8-7.7) Lymphocytes # (Auto) 1.1 x10^3/uL (1.0-4.8) Monocytes # (Auto) 0.6 x10^3/uL (0.0-1.1) Eosinophils # (Auto) 0.4 x10^3/uL (0.0-0.7) Basophils # (Auto) 0.0 x10^3/uL (0.0-0.2) Sodium Level 139 mmol/L (136-145) Potassium Level 3.5 mmol/L (3.5-5.1) Chloride Level 106 mmol/L (98-107) Carbon Dioxide Level 25 mmol/L (21-32) Anion Gap 8 (6-14) Blood Urea Nitrogen 10 mg/dL (8-26) Creatinine 0.9 mg/dL (0.7-1.3) Estimated GFR (Cockcroft-Gault) 95.5 Glucose Level 144 mg/dL (70-99) Calcium Level 8.8 mg/dL (8.5-10.1) Phosphorus Level 3.3 mg/dL (2.6-4.7) Magnesium Level 1.9 mg/dL (1.8-2.4) Test 03/13/18 08:33 03/13/18 13:00 03/13/18 17:20 03/13/18 21:58 O2 Saturation 95 % (92-99) 94 % (92-99) Arterial Blood pH 7.41 (7.35-7.45) 7.21 (7.35-7.45) Arterial Blood pCO2 at Patient Temp 35 mmHg (35-46) 69 mmHg (35-46) Arterial Blood pO2 at Patient Temp 80 mmHg (85-108) 87 mmHg (85-108) Arterial Blood HCO3 22 mmol/L (21-28) 27 mmol/L (21-28) Arterial Blood Base Excess -2 mmol/L (-3-3) -3 mmol/L (-3-3) FiO2 40 40 Glucose (Fingerstick) 123 mg/dL (70-99) 115 mg/dL (70-99) Test 03/14/18 06:15 03/14/18 08:00 White Blood Count 7.7 x10^3/uL (4.0-11.0) Red Blood Count 3.84 x10^6/uL (4.30-5.70) Hemoglobin 11.5 g/dL (13.0-17.5) Hematocrit 34.7 % (39.0-53.0) Mean Corpuscular Volume 90 fL (79-100) Mean Corpuscular Hemoglobin 30 pg (25-35) Mean Corpuscular Hemoglobin Concent 33 g/dL (31-37) Red Cell Distribution Width 14.2 % (11.5-14.5) Platelet Count 352 x10^3/uL (140-400) Neutrophils (%) (Auto) 71 % (31-73) Lymphocytes (%) (Auto) 14 % (24-48) Monocytes (%) (Auto) 9 % (0-9) Eosinophils (%) (Auto) 6 % (0-3) Basophils (%) (Auto) 0 % (0-3) Neutrophils # (Auto) 5.5 x10^3uL (1.8-7.7) Lymphocytes # (Auto) 1.1 x10^3/uL (1.0-4.8) Monocytes # (Auto) 0.7 x10^3/uL (0.0-1.1) Eosinophils # (Auto) 0.4 x10^3/uL (0.0-0.7) Basophils # (Auto) 0.0 x10^3/uL (0.0-0.2) Sodium Level 142 mmol/L (136-145) Potassium Level 3.8 mmol/L (3.5-5.1) Chloride Level 106 mmol/L (98-107) Carbon Dioxide Level 27 mmol/L (21-32) Anion Gap 9 (6-14) Blood Urea Nitrogen 11 mg/dL (8-26) Creatinine 0.8 mg/dL (0.7-1.3) Estimated GFR (Cockcroft-Gault) 109.4 Glucose Level 140 mg/dL (70-99) Calcium Level 8.9 mg/dL (8.5-10.1) Phosphorus Level 3.6 mg/dL (2.6-4.7) Magnesium Level 1.9 mg/dL (1.8-2.4) O2 Saturation 94 % (92-99) Arterial Blood pH 7.41 (7.35-7.45) Arterial Blood pCO2 at Patient Temp 32 mmHg (35-46) Arterial Blood pO2 at Patient Temp 70 mmHg (85-108) Arterial Blood HCO3 20 mmol/L (21-28) Arterial Blood Base Excess -4 mmol/L (-3-3) FiO2 40 Laboratory Tests Test 03/13/18 13:00 03/13/18 17:20 03/13/18 21:58 03/14/18 06:15 O2 Saturation 94 % (92-99) Arterial Blood pH 7.21 (7.35-7.45) Arterial Blood pCO2 at Patient Temp 69 mmHg (35-46) Arterial Blood pO2 at Patient Temp 87 mmHg (85-108) Arterial Blood HCO3 27 mmol/L (21-28) Arterial Blood Base Excess -3 mmol/L (-3-3) FiO2 40 Glucose (Fingerstick) 123 mg/dL (70-99) 115 mg/dL (70-99) White Blood Count 7.7 x10^3/uL (4.0-11.0) Red Blood Count 3.84 x10^6/uL (4.30-5.70) Hemoglobin 11.5 g/dL (13.0-17.5) Hematocrit 34.7 % (39.0-53.0) Mean Corpuscular Volume 90 fL (79-100) Mean Corpuscular Hemoglobin 30 pg (25-35) Mean Corpuscular Hemoglobin Concent 33 g/dL (31-37) Red Cell Distribution Width 14.2 % (11.5-14.5) Platelet Count 352 x10^3/uL (140-400) Neutrophils (%) (Auto) 71 % (31-73) Lymphocytes (%) (Auto) 14 % (24-48) Monocytes (%) (Auto) 9 % (0-9) Eosinophils (%) (Auto) 6 % (0-3) Basophils (%) (Auto) 0 % (0-3) Neutrophils # (Auto) 5.5 x10^3uL (1.8-7.7) Lymphocytes # (Auto) 1.1 x10^3/uL (1.0-4.8) Monocytes # (Auto) 0.7 x10^3/uL (0.0-1.1) Eosinophils # (Auto) 0.4 x10^3/uL (0.0-0.7) Basophils # (Auto) 0.0 x10^3/uL (0.0-0.2) Sodium Level 142 mmol/L (136-145) Potassium Level 3.8 mmol/L (3.5-5.1) Chloride Level 106 mmol/L (98-107) Carbon Dioxide Level 27 mmol/L (21-32) Anion Gap 9 (6-14) Blood Urea Nitrogen 11 mg/dL (8-26) Creatinine 0.8 mg/dL (0.7-1.3) Estimated GFR (Cockcroft-Gault) 109.4 Glucose Level 140 mg/dL (70-99) Calcium Level 8.9 mg/dL (8.5-10.1) Phosphorus Level 3.6 mg/dL (2.6-4.7) Magnesium Level 1.9 mg/dL (1.8-2.4) Test 03/14/18 08:00 O2 Saturation 94 % (92-99) Arterial Blood pH 7.41 (7.35-7.45) Arterial Blood pCO2 at Patient Temp 32 mmHg (35-46) Arterial Blood pO2 at Patient Temp 70 mmHg (85-108) Arterial Blood HCO3 20 mmol/L (21-28) Arterial Blood Base Excess -4 mmol/L (-3-3) FiO2 40 Medications Active Scripts Medications Dose Route/Sig Max Daily Dose Days Date Category Amlodipine Besylate 5 Mg Tablet 5 Mg PO DAILY 03/14/18 Reported Omeprazole 40 Mg Capsule.dr 1 Cap PO BID 03/14/18 Reported Comments CTA CHEST REVIEWED 1. Life support devices in appropriate position. 2. No large central pulmonary embolus. Lobar, segmental, subsegmental pulmonary arteries cannot be evaluated due to limited contrast opacification. 3. Moderate consolidations with air bronchograms in the bilateral lower lobes. Considerations include aspiration, pneumonia, or atelectasis. 4. Persistent diverticulitis of the sigmoid colon. There is a small incompletely formed probable peridiverticular abscess. 5. Fatty infiltration of the liver. Electronically signed by: Akbar Naqvi MD (03/11/2018 11:21 AM) [id number] CXR 03/14 reviewed BILATERAL INFIL Impression . IMPRESSION: 1. Acute respiratory failure, status post code blue. Etiology likely ALI/EARLY ARDS due to diverticulitis 2. Status post code blue patient with spontaneous return of circulation after one defibrillation and 2 minutes of chest compressions. 3. Septic shock.off pressor 4. Diverticulitis leading to septic shock. ? abscess/ suspected perf. diverticulitis 5. Metabolic acidosis secondary to code blue, increased work of breathing and renal insufficiency. improved 6. Morbid obesity. 7. Leukocytosis. 8. Obstructive sleep apnea. 9. Possible aspiration pneumonia. 10. No central PE by CTA, 11. AGITATION Plan . D/W RN WILL START PRECEDEX DRIP RE CONSIDER CPAP LATER IV LASIX TODAY POSSIBLE EXTUBATION IN 24 HRS LOVENOX FOR DVT PROPHYLAXIS DOSE NO SHUNT ON ECHO NEG VENOUS DOPPLER ANTIBX PER ID FOLLOW SURGERY REC TPN GI PROPH D/W RN/ CCT 30 MIN LOY TIJERINA MD Mar 14, 2018 10:27
[2018-03-14] MEDS ORDERED: IV NORMAL SALINE 500ML BAG 500 ML IV PRN (10:30)
[2018-03-14] MEDS ORDERED: ATROPINE 0.5 MG/5 ML DISP.SYRINGE. IV PRN (10:30)
[2018-03-14] MEDS ORDERED: FUROSEMIDE 40 MG/4 ML VIAL. IVP ONE (10:30)
[2018-03-14] MEDS: DEXMEDETOMIDINE 200 MCG in IV NORMAL SALINE 50ML 48 ML IV PRN ×4 (11:28→14:17)
[2018-03-14] MEDS: IPRATRPIUM/ALBUTEROL 0.5/2.5MG 3 ML NEBU. NEB SCH ×3 (11:46→19:50)
[2018-03-14] MEDS: ONDANSETRON PF 4 MG/2 ML VIAL. IV PRN (12:16)
--- NOTE | 2018-03-14 12:26 | PDOC ---
JANUSZ SMITH [employer] 03/14/18 1226: SURGICAL PROGRESS NOTE Subjective awake on vent denies abd pain Vital Signs Vital Signs Date Time Temp Pulse Resp B/P (MAP) Pulse Ox O2 Delivery O2 Flow Rate FiO2 03/14/18 11:47 95 Ventilator 03/14/18 11:00 82 18 134/77 (96) 03/14/18 07:00 98.0 98.0 I&O Intake and Output 03/14/18 07:00 Intake Total 2362 ml Output Total 4020 ml Balance -1658 ml Intake Oral 0 ml IV Total 2362 ml Output Urine Total 3770 ml Gastric Drainage Total 250 ml General: Alert, Cooperative HEENT: Other (vent) Abdomen: Soft, No tenderness Labs Laboratory Tests Test 03/13/18 00:21 03/13/18 05:00 03/13/18 05:11 03/13/18 08:33 Glucose (Fingerstick) 118 mg/dL (70-99) 141 mg/dL (70-99) White Blood Count 8.8 x10^3/uL (4.0-11.0) Red Blood Count 3.48 x10^6/uL (4.30-5.70) Hemoglobin 10.7 g/dL (13.0-17.5) Hematocrit 31.3 % (39.0-53.0) Mean Corpuscular Volume 90 fL (79-100) Mean Corpuscular Hemoglobin 31 pg (25-35) Mean Corpuscular Hemoglobin Concent 34 g/dL (31-37) Red Cell Distribution Width 13.7 % (11.5-14.5) Platelet Count 300 x10^3/uL (140-400) Neutrophils (%) (Auto) 76 % (31-73) Lymphocytes (%) (Auto) 12 % (24-48) Monocytes (%) (Auto) 7 % (0-9) Eosinophils (%) (Auto) 5 % (0-3) Basophils (%) (Auto) 1 % (0-3) Neutrophils # (Auto) 6.7 x10^3uL (1.8-7.7) Lymphocytes # (Auto) 1.1 x10^3/uL (1.0-4.8) Monocytes # (Auto) 0.6 x10^3/uL (0.0-1.1) Eosinophils # (Auto) 0.4 x10^3/uL (0.0-0.7) Basophils # (Auto) 0.0 x10^3/uL (0.0-0.2) Sodium Level 139 mmol/L (136-145) Potassium Level 3.5 mmol/L (3.5-5.1) Chloride Level 106 mmol/L (98-107) Carbon Dioxide Level 25 mmol/L (21-32) Anion Gap 8 (6-14) Blood Urea Nitrogen 10 mg/dL (8-26) Creatinine 0.9 mg/dL (0.7-1.3) Estimated GFR (Cockcroft-Gault) 95.5 Glucose Level 144 mg/dL (70-99) Calcium Level 8.8 mg/dL (8.5-10.1) Phosphorus Level 3.3 mg/dL (2.6-4.7) Magnesium Level 1.9 mg/dL (1.8-2.4) O2 Saturation 95 % (92-99) Arterial Blood pH 7.41 (7.35-7.45) Arterial Blood pCO2 at Patient Temp 35 mmHg (35-46) Arterial Blood pO2 at Patient Temp 80 mmHg (85-108) Arterial Blood HCO3 22 mmol/L (21-28) Arterial Blood Base Excess -2 mmol/L (-3-3) FiO2 40 Test 03/13/18 13:00 03/13/18 17:20 03/13/18 21:58 03/14/18 06:15 O2 Saturation 94 % (92-99) Arterial Blood pH 7.21 (7.35-7.45) Arterial Blood pCO2 at Patient Temp 69 mmHg (35-46) Arterial Blood pO2 at Patient Temp 87 mmHg (85-108) Arterial Blood HCO3 27 mmol/L (21-28) Arterial Blood Base Excess -3 mmol/L (-3-3) FiO2 40 Glucose (Fingerstick) 123 mg/dL (70-99) 115 mg/dL (70-99) White Blood Count 7.7 x10^3/uL (4.0-11.0) Red Blood Count 3.84 x10^6/uL (4.30-5.70) Hemoglobin 11.5 g/dL (13.0-17.5) Hematocrit 34.7 % (39.0-53.0) Mean Corpuscular Volume 90 fL (79-100) Mean Corpuscular Hemoglobin 30 pg (25-35) Mean Corpuscular Hemoglobin Concent 33 g/dL (31-37) Red Cell Distribution Width 14.2 % (11.5-14.5) Platelet Count 352 x10^3/uL (140-400) Neutrophils (%) (Auto) 71 % (31-73) Lymphocytes (%) (Auto) 14 % (24-48) Monocytes (%) (Auto) 9 % (0-9) Eosinophils (%) (Auto) 6 % (0-3) Basophils (%) (Auto) 0 % (0-3) Neutrophils # (Auto) 5.5 x10^3uL (1.8-7.7) Lymphocytes # (Auto) 1.1 x10^3/uL (1.0-4.8) Monocytes # (Auto) 0.7 x10^3/uL (0.0-1.1) Eosinophils # (Auto) 0.4 x10^3/uL (0.0-0.7) Basophils # (Auto) 0.0 x10^3/uL (0.0-0.2) Sodium Level 142 mmol/L (136-145) Potassium Level 3.8 mmol/L (3.5-5.1) Chloride Level 106 mmol/L (98-107) Carbon Dioxide Level 27 mmol/L (21-32) Anion Gap 9 (6-14) Blood Urea Nitrogen 11 mg/dL (8-26) Creatinine 0.8 mg/dL (0.7-1.3) Estimated GFR (Cockcroft-Gault) 109.4 Glucose Level 140 mg/dL (70-99) Calcium Level 8.9 mg/dL (8.5-10.1) Phosphorus Level 3.6 mg/dL (2.6-4.7) Magnesium Level 1.9 mg/dL (1.8-2.4) Test 03/14/18 08:00 03/14/18 11:21 O2 Saturation 94 % (92-99) Arterial Blood pH 7.41 (7.35-7.45) Arterial Blood pCO2 at Patient Temp 32 mmHg (35-46) Arterial Blood pO2 at Patient Temp 70 mmHg (85-108) Arterial Blood HCO3 20 mmol/L (21-28) Arterial Blood Base Excess -4 mmol/L (-3-3) FiO2 40 Glucose (Fingerstick) 159 mg/dL (70-99) Laboratory Tests Test 03/13/18 13:00 03/13/18 17:20 03/13/18 21:58 03/14/18 06:15 O2 Saturation 94 % (92-99) Arterial Blood pH 7.21 (7.35-7.45) Arterial Blood pCO2 at Patient Temp 69 mmHg (35-46) Arterial Blood pO2 at Patient Temp 87 mmHg (85-108) Arterial Blood HCO3 27 mmol/L (21-28) Arterial Blood Base Excess -3 mmol/L (-3-3) FiO2 40 Glucose (Fingerstick) 123 mg/dL (70-99) 115 mg/dL (70-99) White Blood Count 7.7 x10^3/uL (4.0-11.0) Red Blood Count 3.84 x10^6/uL (4.30-5.70) Hemoglobin 11.5 g/dL (13.0-17.5) Hematocrit 34.7 % (39.0-53.0) Mean Corpuscular Volume 90 fL (79-100) Mean Corpuscular Hemoglobin 30 pg (25-35) Mean Corpuscular Hemoglobin Concent 33 g/dL (31-37) Red Cell Distribution Width 14.2 % (11.5-14.5) Platelet Count 352 x10^3/uL (140-400) Neutrophils (%) (Auto) 71 % (31-73) Lymphocytes (%) (Auto) 14 % (24-48) Monocytes (%) (Auto) 9 % (0-9) Eosinophils (%) (Auto) 6 % (0-3) Basophils (%) (Auto) 0 % (0-3) Neutrophils # (Auto) 5.5 x10^3uL (1.8-7.7) Lymphocytes # (Auto) 1.1 x10^3/uL (1.0-4.8) Monocytes # (Auto) 0.7 x10^3/uL (0.0-1.1) Eosinophils # (Auto) 0.4 x10^3/uL (0.0-0.7) Basophils # (Auto) 0.0 x10^3/uL (0.0-0.2) Sodium Level 142 mmol/L (136-145) Potassium Level 3.8 mmol/L (3.5-5.1) Chloride Level 106 mmol/L (98-107) Carbon Dioxide Level 27 mmol/L (21-32) Anion Gap 9 (6-14) Blood Urea Nitrogen 11 mg/dL (8-26) Creatinine 0.8 mg/dL (0.7-1.3) Estimated GFR (Cockcroft-Gault) 109.4 Glucose Level 140 mg/dL (70-99) Calcium Level 8.9 mg/dL (8.5-10.1) Phosphorus Level 3.6 mg/dL (2.6-4.7) Magnesium Level 1.9 mg/dL (1.8-2.4) Test 03/14/18 08:00 03/14/18 11:21 O2 Saturation 94 % (92-99) Arterial Blood pH 7.41 (7.35-7.45) Arterial Blood pCO2 at Patient Temp 32 mmHg (35-46) Arterial Blood pO2 at Patient Temp 70 mmHg (85-108) Arterial Blood HCO3 20 mmol/L (21-28) Arterial Blood Base Excess -4 mmol/L (-3-3) FiO2 40 Glucose (Fingerstick) 159 mg/dL (70-99) Problem List Problems Medical Problems: (1) Diverticulitis of colon with perforation Status: Acute Assessment/Plan plan CT in AM EVAN MCGHEE MD 03/14/18 1334: SURGICAL PROGRESS NOTE Assessment/Plan Reviewed, agree with above JANUSZ SMITH APRN Mar 14, 2018 12:26 EVAN MCGHEE MD Mar 14, 2018 13:34
[2018-03-14] MEDS: TPN PER PHARMACY MC PRN (12:58)
--- NOTE | 2018-03-14 13:26 | PDOC ---
PROGRESS NOTES Chief Complaint Chief Complaint status post cardiac arrest, nonsustained V. 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 Pt failed pressure support 03/13, precidex started, CPAP trial daily talked to daily at bedside History of Present Illness History of Present Illness Admitted for perforation of the diverticulitis, first episode of diverticulitis. But about 6:15 AM Sunday, found on the ground, unresponsive, nonsustained V. tach, 2 minutes of CPR, with ROSC ICU, intubated, sedated, vent slightly down to 40%, PEEP 5. Failed CPAP trial 03/13 with high PCO2, agitation Sedated C-collar on. NEeded levophed sunday - but off pressors sunday talked to at bedside for a long time, who is not happy that someone told her that pt had heart attack i printed out the echo result to her and explained some possibilities for the CHF CT 03/11 showed diverticulitis, 2.4cm abscess Vitals Vitals Vital Signs Date Time Temp Pulse Resp B/P (MAP) Pulse Ox O2 Delivery O2 Flow Rate FiO2 03/14/18 12:00 Mechanical Ventilator 03/14/18 12:00 99.0 75 18 142/77 (98) 95 99.0 Physical Exam Physical Exam GENERAL: Intubated alert with mitt left hand. looks well HENT: Pupils equal, nml conj. OGT & ETT NECK: no JVD LUNGS: CTA CV: Distant heart tones ABDOMEN:n Obese, hypoactive bowel sounds, soft, no grimace to light palpation. mild distension : Galvan in place EXT: No gross edema or cyanosis. right groin dressing clean SKIN: warm without rash Right PICC line - clean General: Alert, Cooperative Heart: Regular rate Lungs: Clear Abdomen: Soft, No tenderness, Other (minished bs, moderate distended) Extremities: No clubbing, No cyanosis Skin: No rashes, No breakdown Labs LABS Laboratory Tests Test 03/13/18 17:20 03/13/18 21:58 03/14/18 06:15 03/14/18 08:00 Glucose (Fingerstick) 123 mg/dL (70-99) 115 mg/dL (70-99) White Blood Count 7.7 x10^3/uL (4.0-11.0) Red Blood Count 3.84 x10^6/uL (4.30-5.70) Hemoglobin 11.5 g/dL (13.0-17.5) Hematocrit 34.7 % (39.0-53.0) Mean Corpuscular Volume 90 fL (79-100) Mean Corpuscular Hemoglobin 30 pg (25-35) Mean Corpuscular Hemoglobin Concent 33 g/dL (31-37) Red Cell Distribution Width 14.2 % (11.5-14.5) Platelet Count 352 x10^3/uL (140-400) Neutrophils (%) (Auto) 71 % (31-73) Lymphocytes (%) (Auto) 14 % (24-48) Monocytes (%) (Auto) 9 % (0-9) Eosinophils (%) (Auto) 6 % (0-3) Basophils (%) (Auto) 0 % (0-3) Neutrophils # (Auto) 5.5 x10^3uL (1.8-7.7) Lymphocytes # (Auto) 1.1 x10^3/uL (1.0-4.8) Monocytes # (Auto) 0.7 x10^3/uL (0.0-1.1) Eosinophils # (Auto) 0.4 x10^3/uL (0.0-0.7) Basophils # (Auto) 0.0 x10^3/uL (0.0-0.2) Sodium Level 142 mmol/L (136-145) Potassium Level 3.8 mmol/L (3.5-5.1) Chloride Level 106 mmol/L (98-107) Carbon Dioxide Level 27 mmol/L (21-32) Anion Gap 9 (6-14) Blood Urea Nitrogen 11 mg/dL (8-26) Creatinine 0.8 mg/dL (0.7-1.3) Estimated GFR (Cockcroft-Gault) 109.4 Glucose Level 140 mg/dL (70-99) Calcium Level 8.9 mg/dL (8.5-10.1) Phosphorus Level 3.6 mg/dL (2.6-4.7) Magnesium Level 1.9 mg/dL (1.8-2.4) O2 Saturation 94 % (92-99) Arterial Blood pH 7.41 (7.35-7.45) Arterial Blood pCO2 at Patient Temp 32 mmHg (35-46) Arterial Blood pO2 at Patient Temp 70 mmHg (85-108) Arterial Blood HCO3 20 mmol/L (21-28) Arterial Blood Base Excess -4 mmol/L (-3-3) FiO2 40 Test 03/14/18 11:21 Glucose (Fingerstick) 159 mg/dL (70-99) Assessment and Plan Assessmemt and Plan Problems Medical Problems: (1) Diverticulitis of colon with perforation Status: Acute Comment Review of Relevant I have reviewed the following items kalin (where applicable) has been applied. Labs Laboratory Tests Test 03/13/18 00:21 03/13/18 05:00 03/13/18 05:11 03/13/18 08:33 Glucose (Fingerstick) 118 mg/dL (70-99) 141 mg/dL (70-99) White Blood Count 8.8 x10^3/uL (4.0-11.0) Red Blood Count 3.48 x10^6/uL (4.30-5.70) Hemoglobin 10.7 g/dL (13.0-17.5) Hematocrit 31.3 % (39.0-53.0) Mean Corpuscular Volume 90 fL (79-100) Mean Corpuscular Hemoglobin 31 pg (25-35) Mean Corpuscular Hemoglobin Concent 34 g/dL (31-37) Red Cell Distribution Width 13.7 % (11.5-14.5) Platelet Count 300 x10^3/uL (140-400) Neutrophils (%) (Auto) 76 % (31-73) Lymphocytes (%) (Auto) 12 % (24-48) Monocytes (%) (Auto) 7 % (0-9) Eosinophils (%) (Auto) 5 % (0-3) Basophils (%) (Auto) 1 % (0-3) Neutrophils # (Auto) 6.7 x10^3uL (1.8-7.7) Lymphocytes # (Auto) 1.1 x10^3/uL (1.0-4.8) Monocytes # (Auto) 0.6 x10^3/uL (0.0-1.1) Eosinophils # (Auto) 0.4 x10^3/uL (0.0-0.7) Basophils # (Auto) 0.0 x10^3/uL (0.0-0.2) Sodium Level 139 mmol/L (136-145) Potassium Level 3.5 mmol/L (3.5-5.1) Chloride Level 106 mmol/L (98-107) Carbon Dioxide Level 25 mmol/L (21-32) Anion Gap 8 (6-14) Blood Urea Nitrogen 10 mg/dL (8-26) Creatinine 0.9 mg/dL (0.7-1.3) Estimated GFR (Cockcroft-Gault) 95.5 Glucose Level 144 mg/dL (70-99) Calcium Level 8.8 mg/dL (8.5-10.1) Phosphorus Level 3.3 mg/dL (2.6-4.7) Magnesium Level 1.9 mg/dL (1.8-2.4) O2 Saturation 95 % (92-99) Arterial Blood pH 7.41 (7.35-7.45) Arterial Blood pCO2 at Patient Temp 35 mmHg (35-46) Arterial Blood pO2 at Patient Temp 80 mmHg (85-108) Arterial Blood HCO3 22 mmol/L (21-28) Arterial Blood Base Excess -2 mmol/L (-3-3) FiO2 40 Test 03/13/18 13:00 03/13/18 17:20 03/13/18 21:58 03/14/18 06:15 O2 Saturation 94 % (92-99) Arterial Blood pH 7.21 (7.35-7.45) Arterial Blood pCO2 at Patient Temp 69 mmHg (35-46) Arterial Blood pO2 at Patient Temp 87 mmHg (85-108) Arterial Blood HCO3 27 mmol/L (21-28) Arterial Blood Base Excess -3 mmol/L (-3-3) FiO2 40 Glucose (Fingerstick) 123 mg/dL (70-99) 115 mg/dL (70-99) White Blood Count 7.7 x10^3/uL (4.0-11.0) Red Blood Count 3.84 x10^6/uL (4.30-5.70) Hemoglobin 11.5 g/dL (13.0-17.5) Hematocrit 34.7 % (39.0-53.0) Mean Corpuscular Volume 90 fL (79-100) Mean Corpuscular Hemoglobin 30 pg (25-35) Mean Corpuscular Hemoglobin Concent 33 g/dL (31-37) Red Cell Distribution Width 14.2 % (11.5-14.5) Platelet Count 352 x10^3/uL (140-400) Neutrophils (%) (Auto) 71 % (31-73) Lymphocytes (%) (Auto) 14 % (24-48) Monocytes (%) (Auto) 9 % (0-9) Eosinophils (%) (Auto) 6 % (0-3) Basophils (%) (Auto) 0 % (0-3) Neutrophils # (Auto) 5.5 x10^3uL (1.8-7.7) Lymphocytes # (Auto) 1.1 x10^3/uL (1.0-4.8) Monocytes # (Auto) 0.7 x10^3/uL (0.0-1.1) Eosinophils # (Auto) 0.4 x10^3/uL (0.0-0.7) Basophils # (Auto) 0.0 x10^3/uL (0.0-0.2) Sodium Level 142 mmol/L (136-145) Potassium Level 3.8 mmol/L (3.5-5.1) Chloride Level 106 mmol/L (98-107) Carbon Dioxide Level 27 mmol/L (21-32) Anion Gap 9 (6-14) Blood Urea Nitrogen 11 mg/dL (8-26) Creatinine 0.8 mg/dL (0.7-1.3) Estimated GFR (Cockcroft-Gault) 109.4 Glucose Level 140 mg/dL (70-99) Calcium Level 8.9 mg/dL (8.5-10.1) Phosphorus Level 3.6 mg/dL (2.6-4.7) Magnesium Level 1.9 mg/dL (1.8-2.4) Test 03/14/18 08:00 03/14/18 11:21 O2 Saturation 94 % (92-99) Arterial Blood pH 7.41 (7.35-7.45) Arterial Blood pCO2 at Patient Temp 32 mmHg (35-46) Arterial Blood pO2 at Patient Temp 70 mmHg (85-108) Arterial Blood HCO3 20 mmol/L (21-28) Arterial Blood Base Excess -4 mmol/L (-3-3) FiO2 40 Glucose (Fingerstick) 159 mg/dL (70-99) Laboratory Tests Test 03/13/18 17:20 03/13/18 21:58 03/14/18 06:15 03/14/18 08:00 Glucose (Fingerstick) 123 mg/dL (70-99) 115 mg/dL (70-99) White Blood Count 7.7 x10^3/uL (4.0-11.0) Red Blood Count 3.84 x10^6/uL (4.30-5.70) Hemoglobin 11.5 g/dL (13.0-17.5) Hematocrit 34.7 % (39.0-53.0) Mean Corpuscular Volume 90 fL (79-100) Mean Corpuscular Hemoglobin 30 pg (25-35) Mean Corpuscular Hemoglobin Concent 33 g/dL (31-37) Red Cell Distribution Width 14.2 % (11.5-14.5) Platelet Count 352 x10^3/uL (140-400) Neutrophils (%) (Auto) 71 % (31-73) Lymphocytes (%) (Auto) 14 % (24-48) Monocytes (%) (Auto) 9 % (0-9) Eosinophils (%) (Auto) 6 % (0-3) Basophils (%) (Auto) 0 % (0-3) Neutrophils # (Auto) 5.5 x10^3uL (1.8-7.7) Lymphocytes # (Auto) 1.1 x10^3/uL (1.0-4.8) Monocytes # (Auto) 0.7 x10^3/uL (0.0-1.1) Eosinophils # (Auto) 0.4 x10^3/uL (0.0-0.7) Basophils # (Auto) 0.0 x10^3/uL (0.0-0.2) Sodium Level 142 mmol/L (136-145) Potassium Level 3.8 mmol/L (3.5-5.1) Chloride Level 106 mmol/L (98-107) Carbon Dioxide Level 27 mmol/L (21-32) Anion Gap 9 (6-14) Blood Urea Nitrogen 11 mg/dL (8-26) Creatinine 0.8 mg/dL (0.7-1.3) Estimated GFR (Cockcroft-Gault) 109.4 Glucose Level 140 mg/dL (70-99) Calcium Level 8.9 mg/dL (8.5-10.1) Phosphorus Level 3.6 mg/dL (2.6-4.7) Magnesium Level 1.9 mg/dL (1.8-2.4) O2 Saturation 94 % (92-99) Arterial Blood pH 7.41 (7.35-7.45) Arterial Blood pCO2 at Patient Temp 32 mmHg (35-46) Arterial Blood pO2 at Patient Temp 70 mmHg (85-108) Arterial Blood HCO3 20 mmol/L (21-28) Arterial Blood Base Excess -4 mmol/L (-3-3) FiO2 40 Test 03/14/18 11:21 Glucose (Fingerstick) 159 mg/dL (70-99) Microbiology 03/09/18 Blood Culture - Preliminary, Resulted NO GROWTH AFTER 4 DAYS Medications Current Medications Sodium Chloride (Normal Saline Flush) 3 ml QSHIFT PRN IV AFTER MEDS AND BLOOD DRAWS; Start 03/07/18 at 11:00 Sodium Chloride 1,000 ml @ 1,000 mls/hr Q1H IV Last administered on 03/07/18at 11:32; Start 03/07/18 at 11:00; Stop 03/07/18 at 11:59; Status DC Iohexol (Omnipaque 300 Mg/ml) 75 ml 1X ONCE IV Last administered on 03/07/18at 12:46; Start 03/07/18 at 11:15; Stop 03/07/18 at 11:16; Status DC Info (CONTRAST GIVEN -- Rx MONITORING) 1 each PRN DAILY PRN MC SEE COMMENTS; Start 03/07/18 at 11:15; Stop 03/09/18 at 11:14; Status DC Sodium Chloride 1,000 ml @ 1,000 mls/hr 1X ONCE IV Last administered on at 12:37; Start 03/07/18 at 12:00; Stop 03/07/18 at 12:59; Status DC Fentanyl Citrate (Fentanyl 2ml Vial) 50 mcg 1X ONCE IV Last administered on 03/07/18at 13:07; Start 03/07/18 at 13:00; Stop 03/07/18 at 13:01; Status DC Metronidazole 100 ml @ 100 mls/hr 1X ONCE IV ; Start 03/07/18 at 13:30; Stop at 14:29; Status DC Ciprofloxacin/ Dextrose 200 ml @ 200 mls/hr ONCE STAT IV Last administered on 03/07/18at 13:42; Start 03/07/18 at 13:12; Stop 03/07/18 at 14:11; Status DC Piperacillin Sod/ Tazobactam Sod 3.375 gm/Sodium Chloride 50 ml @ 100 mls/hr 1X ONCE IV Last administered on 03/07/18at 14:43; Start 03/07/18 at 14:30; Stop 03/07/18 at 14:59; Status DC Diphenhydramine HCl (Benadryl) 50 mg 1X ONCE IVP Last administered on at 14:33; Start 03/07/18 at 14:15; Stop 03/07/18 at 14:16; Status DC Fentanyl Citrate (Fentanyl 2ml Vial) 25 mcg 1X ONCE IV ; Start 03/07/18 at 14:15 ; Stop 03/07/18 at 14:16; Status Cancel Morphine Sulfate (Morphine Sulfate) 4 mg 1X ONCE IV Last administered on at 14:35; Start 03/07/18 at 14:30; Stop 03/07/18 at 14:31; Status DC Ondansetron HCl (Zofran) 4 mg PRN Q8HRS PRN IV NAUSEA/VOMITING; Start 03/07/18 at 14:30; Stop 03/08/18 at 14:29; Status DC Morphine Sulfate (Morphine Sulfate) 4 mg PRN Q2HR PRN IV PAIN Last administered on 03/08/18at 08:20; Start 03/07/18 at 14:30; Stop 03/08/18 at 14:29; Status DC Piperacillin Sod/ Tazobactam Sod 3.375 gm/Sodium Chloride 50 ml @ 100 mls/hr Q6HRS IV Last administered on 03/14/18at 11:02; Start 03/07/18 at 18:00 Metronidazole 100 ml @ 100 mls/hr Q8HRS IV Last administered on 03/09/18at 11:19 ; Start 03/07/18 at 22:00; Stop 03/09/18 at 15:10; Status DC Sodium Chloride 500 ml @ 500 mls/hr 1X ONCE IV Last administered on 03/07/18at 16:45; Start 03/07/18 at 16:45; Stop 03/07/18 at 17:44; Status DC Amino Acids/ Glycerin/ Electrolytes 1,000 ml @ 80 mls/hr [id number] IV Last administered on 03/11/18at 07:47; Start 03/07/18 at 16:45; Stop 03/11/18 at 20:21; Status DC Acetaminophen (Tylenol) 650 mg PRN Q6HRS PRN PO fever ; Start 03/07/18 at 18:00 Pantoprazole Sodium (PROTONIX VIAL for IV PUSH) 40 mg DAILYAC IVP Last administered on 03/14/18at 08:10; Start 03/08/18 at 07:45 Morphine Sulfate (Morphine Sulfate) 4 mg PRN Q2HR PRN IV MODRATE-SEVERE PAIN 2ND CHOICE Last administered on 03/09/18at 04:26; Start 03/08/18 at 14:45 Lorazepam (Ativan) 1 mg PRN Q4HRS PRN IV ANXIETY / AGITATION Last administered on 03/14/18at 09:03; Start 03/08/18 at 20:30 Ondansetron HCl (Zofran) 4 mg PRN Q6HRS PRN IV NAUSEA/VOMITING 1ST CHOICE Last administered on 03/14/18at 12:16; Start 03/09/18 at 02:00 Etomidate (Amidate) 20 mg STK-MED ONCE IV ; Start 03/09/18 at 06:55; Stop at 06:56; Status DC Norepinephrine Bitartrate 250 ml @ As Directed STK-MED ONCE IV ; Start 03/09/18 at 06:55; Stop 03/09/18 at 06:56; Status DC Midazolam HCl (Versed) 5 mg STK-MED ONCE .ROUTE ; Start 03/09/18 at 06:55; Stop 03/09/18 at 06:56; Status DC Fentanyl Citrate (Fentanyl 2ml Vial) 100 mcg STK-MED ONCE .ROUTE ; Start at 06:55; Stop 03/09/18 at 06:56; Status DC Succinylcholine Chloride (Anectine) 200 mg STK-MED ONCE .ROUTE ; Start 03/09/18 at 06:56; Stop 03/09/18 at 06:57; Status DC Fentanyl Citrate 30 ml @ 0 mls/hr CONT PRN IV PER PROTOCOL Last administered on 03/13/18at 03:06; Start 03/09/18 at 07:00; Stop 03/13/18 at 16:35; Status DC Fentanyl Citrate (Fentanyl 2ml Vial) 25 mcg PRN Q1HR PRN IV MILD PAIN; Start at 07:00 Fentanyl Citrate (Fentanyl 2ml Vial) 50 mcg PRN Q1HR PRN IV MOD TO SEVERE PAIN ; Start 03/09/18 at 07:00 Chlorhexidine Gluconate (Peridex) 15 ml BID MM Last administered on 03/14/18at 08 :11; Start 03/09/18 at 09:00 Midazolam HCl (Versed) 2 mg PRN Q30MIN PRN IV SEDATION; Start 03/09/18 at 07:00 ; Stop 03/10/18 at 10:26; Status DC Midazolam HCl 100 ml @ 0 mls/hr CONT PRN IV PER PROTOCOL Last administered on at 14:07; Start 03/09/18 at 07:00; Stop 03/13/18 at 16:35; Status DC Enoxaparin Sodium (Lovenox 40mg Syringe) 40 mg Q12H SQ Last administered on 03/10at 09:31; Start 03/09/18 at 09:00; Stop 03/10/18 at 12:01; Status DC Sodium Chloride 1,000 ml @ 75 mls/hr [id number] IV Last administered on 03/14/18at 02:48; Start 03/09/18 at 10:15; Stop 03/14/18 at 10:32; Status DC Sodium Chloride 1,000 ml @ 1,000 mls/hr 1X ONCE IV Last administered on at 10:15; Start 03/09/18 at 10:15; Stop 03/09/18 at 11:14; Status DC Norepinephrine Bitartrate 250 ml @ As Directed STK-MED ONCE IV ; Start 03/09/18 at 10:37; Stop 03/09/18 at 10:38; Status DC Phenylephrine HCl 20 mg/Sodium Chloride 252 ml @ 22.68 mls/ hr 1X ONCE IV ; Start 03/09/18 at 10:45; Stop 03/09/18 at 21:51; Status DC Iohexol (Omnipaque 300 Mg/ml) 75 ml 1X ONCE IV ; Start 03/09/18 at 11:30; Stop 03/09/18 at 11:35; Status DC Micafungin Sodium 100 mg/Dextrose 100 ml @ 100 mls/hr Q24H IV Last administered on 03/13/18at 16:12; Start 03/09/18 at 16:00 Linezolid/Dextrose 300 ml @ 300 mls/hr Q12H IV Last administered on 03/14/18at 04:58; Start 03/09/18 at 17:00; Stop 03/14/18 at 09:14; Status DC Norepinephrine Bitartrate 250 ml @ 1.875 mls/ hr CONT PRN IV SEE I/O RECORD Last administered on 03/09/18at 16:18; Start 03/09/18 at 16:00 Furosemide (Lasix) 40 mg 1X ONCE IVP Last administered on 03/10/18at 08:49; Start 03/10/18 at 09:00; Stop 03/10/18 at 09:01; Status DC Perflutren Protein Type A Microsphe (Optison) 0.66 mg STK-MED ONCE IV ; Start at 10:23; Stop 03/10/18 at 10:25; Status DC Enoxaparin Sodium (Lovenox Per Pharmacy Treatment Dosing) 1 each PRN DAILY PRN MC SEE COMMENTS; Start 03/10/18 at 12:00; Stop 03/11/18 at 12:50; Status DC Enoxaparin Sodium (Lovenox 150mg Syringe) 130 mg Q12H SQ Last administered on at 07:48; Start 03/10/18 at 21:00; Stop 03/11/18 at 12:51; Status DC Enoxaparin Sodium (Lovenox 100mg Syringe) 90 mg 1X ONCE SQ Last administered on 03/10/18at 13:53; Start 03/10/18 at 12:30; Stop 03/10/18 at 12:31; Status DC Perflutren Protein Type A Microsphe (Optison) 0.66 mg 1X ONCE IV Last administered on 03/10/18at 12:55; Start 03/10/18 at 13:00; Stop 03/10/18 at 13:01; Status DC Iohexol (Omnipaque 300 Mg/ml) 75 ml 1X ONCE IV Last administered on 03/11/18at 10:00; Start 03/11/18 at 09:00; Stop 03/11/18 at 09:01; Status DC Info (CONTRAST GIVEN -- Rx MONITORING) 1 each PRN DAILY PRN MC SEE COMMENTS; Start 03/11/18 at 09:00; Stop 03/13/18 at 08:59; Status DC Norepinephrine Bitartrate (Levophed 8mg/ 250ml Premix Drip) 8 mg STK-MED ONCE IV ; Start 03/09/18 at 07:00; Stop 03/11/18 at 08:58; Status DC Insulin Human Lispro (HumaLOG) 0-5 UNITS TIDWMEALS SQ ; Start 03/11/18 at 12:00 Dextrose (Dextrose 50%-Water Syringe) 12.5 gm PRN Q15MIN PRN IV SEE COMMENTS; Start 03/11/18 at 09:15 Potassium Chloride/Water 50 ml @ 50 mls/hr 1X ONCE IV Last administered on 03/11at 09:43; Start 03/11/18 at 10:00; Stop 03/11/18 at 10:59; Status DC Info (Anti-Coagulation Monitoring By Pharmacy) 1 each PRN DAILY PRN MC SEE COMMENTS; Start 03/11/18 at 09:30; Stop 03/11/18 at 12:51; Status DC Info (Tpn Per Pharmacy) 1 each PRN DAILY PRN MC SEE COMMENTS Last administered on 03/14/18at 12:58; Start 03/11/18 at 11:15 Magnesium Sulfate 50 ml @ 25 mls/hr 1X ONCE IV Last administered on 03/11/18at 15:09; Start 03/11/18 at 16:00; Stop 03/11/18 at 17:59; Status DC Potassium Phosphate 13.6 mmol/Dextrose 104.5333 ml @ 52.267 m... ONCE ONCE IV Last administered on 03/11/18at 17:11; Start 03/11/18 at 18:00; Stop 03/11/18 at 19:59; Status DC Norepinephrine Bitartrate (Levophed 8mg/ 250ml Premix Drip) 8 mg STK-MED ONCE IV ; Start 03/09/18 at 11:00; Stop 03/11/18 at 12:37; Status DC Enoxaparin Sodium (Lovenox 40mg Syringe) 40 mg Q12HR SQ Last administered on 03/14/18at 08:11; Start 03/11/18 at 21:00 Sodium Chloride 90 meq/Potassium Chloride 50 meq/ Potassium Phosphate 13.6 mmol/ Magnesium Sulfate 10 meq/ Multivitamins 10 ml/Chromium/ Copper/Manganese/ Seleni /Zn 1 ml/ Total Parenteral Nutrition/Amino Acids/Dextrose/ Fat Emulsion Intravenous 1,800 ml @ 75 mls/hr TPN CONT IV Last administered on 03/11/18at 21 :44; Start 03/11/18 at 22:00; Stop 03/12/18 at 21:59; Status DC Potassium Chloride/Water 50 ml @ 50 mls/hr 1X ONCE IV Last administered on 03/12at 10:40; Start 03/12/18 at 09:30; Stop 03/12/18 at 10:29; Status DC Sodium Chloride 90 meq/Potassium Acetate 70 meq/ Potassium Phosphate 10 mmol/ Magnesium Sulfate 10 meq/ Multivitamins 10 ml/Chromium/ Copper/Manganese/ Seleni /Zn 1 ml/ Total Parenteral Nutrition/Amino Acids/Dextrose/ Fat Emulsion Intravenous 1,800 ml @ 75 mls/hr TPN CONT IV ; Start 03/12/18 at 22:00; Stop at 22:00; Status DC Sodium Chloride 90 meq/Potassium Chloride 70 meq/ Potassium Phosphate 10 mmol/ Magnesium Sulfate 10 meq/ Multivitamins 10 ml/Chromium/ Copper/Manganese/ Seleni /Zn 1 ml/ Total Parenteral Nutrition/Amino Acids/Dextrose/ Fat Emulsion Intravenous 1,800 ml @ 75 mls/hr TPN CONT IV Last administered on 03/12/18at 21 :41; Start 03/12/18 at 22:00; Stop 03/13/18 at 21:59; Status DC Benzocaine (Hurricaine One) 1 spray 1X ONCE MM ; Start 03/13/18 at 12:45; Stop 03/13/18 at 12:45; Status DC Promethazine HCl/ Codeine (Phenergan With Codeine) 5 ml PRN Q6HRS PRN PO COUGH Last administered on 03/14/18at 08:10; Start 03/13/18 at 12:45 Benzocaine (Hurricaine One) 1 spray 1X ONCE MM ; Start 03/13/18 at 12:45; Stop 03/13/18 at 12:45; Status DC Benzocaine (Hurricaine One) 1 spray 1X ONCE MM Last administered on 03/13/18at 16:11; Start 03/13/18 at 12:45; Stop 03/13/18 at 12:46; Status DC Sodium Chloride 90 meq/Potassium Chloride 70 meq/ Potassium Phosphate 13.6 mmol/ Magnesium Sulfate 10 meq/ Multivitamins 10 ml/Chromium/ Copper/Manganese/ Seleni /Zn 1 ml/ Total Parenteral Nutrition/Amino Acids/Dextrose/ Fat Emulsion Intravenous 1,800 ml @ 75 mls/hr TPN CONT IV Last administered on 03/13/18at 21 :53; Start 03/13/18 at 22:00; Stop 03/14/18 at 21:59 Propofol 100 ml @ As Directed STK-MED ONCE IV ; Start 03/13/18 at 15:47; Stop at 15:48; Status DC Propofol 100 ml @ 0 mls/hr CONT PRN IV PER PROTOCOL Last administered on at 05:04; Start 03/13/18 at 16:45 Hydralazine HCl (Apresoline Inj) 10 mg PRN Q4HRS PRN IVP ELEVATED BP, SEE COMMENTS Last administered on 03/14/18at 09:02; Start 03/14/18 at 09:00 Albuterol/ Ipratropium (Duoneb) 3 ml RTQID NEB Last administered on 03/14/18at 11 :46; Start 03/14/18 at 12:00 Albuterol/ Ipratropium (Duoneb) 3 ml 1X ONCE NEB Last administered on at 09:36; Start 03/14/18 at 09:30; Stop 03/14/18 at 09:31; Status DC Dexmedetomidine HCl 200 mcg/ Sodium Chloride 50 ml @ 0 mls/hr CONT PRN IV PER PROTOCOL Last administered on 03/14/18at 13:09; Start 03/14/18 at 10:30 Sodium Chloride 500 ml @ 500 mls/hr 1X PRN PRN IV SEE COMMENTS; Start 03/14/18 at 10:30 Atropine Sulfate (ATROPINE 0.5mg SYRINGE) 0.5 mg PRN Q5MIN PRN IV SEE COMMENTS ; Start 03/14/18 at 10:30 Furosemide (Lasix) 40 mg 1X ONCE IVP Last administered on 03/14/18at 10:45; Start 03/14/18 at 10:30; Stop 03/14/18 at 10:31; Status DC Sodium Chloride 90 meq/Potassium Chloride 70 meq/ Potassium Phosphate 13.6 mmol/ Magnesium Sulfate 10 meq/ Multivitamins 10 ml/Chromium/ Copper/Manganese/ Seleni /Zn 1 ml/ Total Parenteral Nutrition/Amino Acids/Dextrose/ Fat Emulsion Intravenous 1,800 ml @ 75 mls/hr TPN CONT IV ; Start 03/14/18 at 22:00; Stop at 21:59 Active Scripts Active Reported Amlodipine Besylate 5 Mg Tablet 5 Mg PO DAILY Omeprazole 40 Mg Capsule.dr Hawkins Cap PO BID Vitals/I & O Vital Sign - Last 24 Hours 03/13/18 03/13/18 03/13/18 03/13/18 14:00 15:00 15:35 16:00 Temp 99.0 99.0 Pulse 78 98 86 Resp 18 18 18 B/P (MAP) 135/86 (102) 120/66 (84) 120/66 (84) Pulse Ox 96 96 95 96 O2 Delivery Ventilator Ventilator Ventilator Ventilator 03/13/18 03/13/18 03/13/18 03/13/18 16:00 17:00 17:42 18:00 Pulse 70 67 Resp 18 18 B/P (MAP) 109/62 (78) 109/62 (78) Pulse Ox 96 97 96 O2 Delivery Mechanical Ventilator Ventilator Ventilator Ventilator 03/13/18 03/13/18 03/13/18 03/13/18 19:00 19:35 20:00 20:00 Temp 99.3 99.3 Pulse 62 74 Resp 18 18 B/P (MAP) 125/84 (98) 124/78 (93) Pulse Ox 96 98 96 O2 Delivery Ventilator Ventilator Mechanical Ventilator Ventilator 03/13/18 03/13/18 03/13/18 03/13/18 21:00 21:25 22:00 23:00 Pulse 68 62 62 Resp 18 18 18 B/P (MAP) 110/66 (81) 133/82 (99) 100/55 (70) Pulse Ox 96 97 94 96 O2 Delivery Ventilator Ventilator Ventilator Ventilator 03/13/18 03/14/18 03/14/18 03/14/18 23:15 00:00 00:00 01:00 Temp 98.9 98.9 Pulse 56 64 Resp 18 18 B/P (MAP) 97/59 (72) 122/77 (92) Pulse Ox 96 96 92 O2 Delivery Ventilator Ventilator Mechanical Ventilator Ventilator 03/14/18 03/14/18 03/14/18 03/14/18 02:00 02:57 03:03 04:00 Temp 99.0 99.0 Pulse 61 66 56 Resp 18 18 18 B/P (MAP) 135/62 (86) 132/76 (94) 119/68 (85) Pulse Ox 96 96 96 97 O2 Delivery Ventilator Ventilator Ventilator Ventilator 03/14/18 03/14/18 03/14/18 03/14/18 04:00 05:00 05:25 06:00 Pulse 77 66 Resp 21 18 B/P (MAP) 135/88 (104) 135/78 (97) Pulse Ox 96 97 95 O2 Delivery Mechanical Ventilator Ventilator Ventilator Ventilator 03/14/18 03/14/18 03/14/18 03/14/18 07:00 07:46 08:00 08:00 Temp 98.0 98.0 Pulse 81 75 Resp 18 18 B/P (MAP) 150/78 (102) 166/88 (114) Pulse Ox 94 94 95 O2 Delivery Ventilator Ventilator Ventilator Mechanical Ventilator 03/14/18 03/14/18 03/14/18 03/14/18 09:00 09:02 09:36 10:00 Pulse 138 75 102 Resp 36 18 B/P (MAP) 187/88 (121) 166/88 200/89 (126) Pulse Ox 91 97 95 O2 Delivery Ventilator Ventilator Ventilator 03/14/18 03/14/18 03/14/18 03/14/18 11:00 11:47 12:00 12:00 Temp 99.0 99.0 Pulse 82 75 Resp 18 18 B/P (MAP) 134/77 (96) 142/77 (98) Pulse Ox 95 95 95 O2 Delivery Ventilator Ventilator Ventilator Mechanical Ventilator Intake and Output 03/13/18 03/13/18 03/14/18 15:00 23:00 07:00 Intake Total 50 ml 2312 ml Output Total 1600 ml 1400 ml 1020 ml Balance -1600 ml -1350 ml 1292 ml KELBY CEDEÑO MD Mar 14, 2018 13:26
[2018-03-14 14:29] LABS: BASE EXCESS COOX 2 mmol/L (-3-3); HCO3 COOX 26 mmol/L (21-28); METHEMOGLOBIN 0.4 % (0.0-1.9); OXYHEMOGLOBIN 94.1 %; PCO2 COOX 42 mmHg (35-46); PO2 COOX 76 mmHg (85-108); SAT O2 COOX 95 % (92-99)
[2018-03-14] MEDS: MICAFUNGIN 100 MG in IV DEXTROSE 5% 100ML 100 ML IV SCH (17:08)
[2018-03-14] MEDS ORDERED: AMINO ACIDS IV SCH ×9 (22:00)
[2018-03-14] MEDS ORDERED: DEXTROSE 70% IV SCH ×9 (22:00)
[2018-03-14] MEDS ORDERED: TOTAL PARENTERAL NUTRITION IV SCH ×9 (22:00)
[2018-03-14] MEDS ORDERED: [UNRECOGNIZED DRUG - OTHER] IV SCH ×9 (22:00)
[2018-03-14] MEDS: MORPHINE SULFATE 4 MG/ML DISP.SYRIN. IV PRN (23:17)
[2018-03-15] VITALS (16 sets, daily range): BP systolic 125–187; BP diastolic 59–116
[2018-03-15 04:57] LABS: BASO # 0.1 x10^3/uL (0.0-0.2); BASO % 1 % (0-3); EOS # 0.2 x10^3/uL (0.0-0.7); EOS % 2 % (0-3); HEMATOCRIT 35.8 % (39.0-53.0); LYMPH # 1.7 x10^3/uL (1.0-4.8); LYMPH % 16 % (24-48); MEAN CORPUSCULAR HEMOGLOBIN 30 pg (25-35); MEAN CORPUSCULAR HGB CONC 34 g/dL (31-37); MEAN CORPUSCULAR VOLUME 90 fL (79-100); MONO # 1.1 x10^3/uL (0.0-1.1); MONO % 10 % (0-9); NEUT # 7.9 x10^3uL (1.8-7.7); NEUT % 72 % (31-73); PLATELET COUNT 526 x10^3/uL (140-400); RED BLOOD COUNT 3.98 x10^6/uL (4.30-5.70); RED CELL DISTRIBUTION WIDTH 13.7 % (11.5-14.5); WHITE BLOOD COUNT 11.1 x10^3/uL (4.0-11.0)
[2018-03-15] MEDS: MORPHINE SULFATE 4 MG/ML DISP.SYRIN. IV PRN ×3 (05:26→22:01)
[2018-03-15 05:41] LABS: CALCIUM 9.2 mg/dL (8.5-10.1); GFR 84.5; POTASSIUM 3.6 mmol/L (3.5-5.1)
[2018-03-15] MEDS: PIPERACILLIN/TAZOBACTAM 3.375 GM in IV NORMAL SALINE 50ML 50 ML IV SCH ×4 (05:46→23:28)
[2018-03-15] MEDS ORDERED: IOHEXOL 240 MG/ML 50ML VIAL. PO ONE (06:15)
[2018-03-15] MEDS ORDERED: CONTRAST GIVEN. MC PRN (06:15)
[2018-03-15] MEDS ORDERED: IOHEXOL 300 MG/ML 100ML VIAL. IV ONE (06:15)
--- NOTE | 2018-03-15 07:51 | RAD ---
Portable chest, 03/15/2018: HISTORY: Respiratory failure Comparison is made to a study from 03/14/2018. The ET tube and NG tube have been removed. A right PICC remains in place again extending into the right lower neck. The heart is mildly enlarged. The pulmonary vascularity is normal. The left lung base has largely cleared. There is only minimal residual linear atelectasis in the right base. No new pulmonary abnormality is seen. There is no evidence of pleural fluid or pneumothorax. IMPRESSION: 1. Interval removal of the ET tube and NG tube. 2. Nearly complete interval clearing of the lung bases. Electronically signed by: Francisco Ruffin MD (03/15/2018 7:47 AM) [facility]
[2018-03-15] MEDS: INSULIN LISPRO 300 UNITS/3 ML INSULN.PEN. SQ SCH ×3 (08:00→18:00)
--- NOTE | 2018-03-15 08:04 | PDOC ---
Infectious Disease Note Subjective Subjective Doing well Had some discomfort with patterson and it has been removed. Has passed urine with a little sting but better then when patterson was in place No nausea/V/SOA/Rash. + BM and pain controlled ROS ROS o/w neg Vital Sign Vital Signs Vital Signs Date Time Temp Pulse Resp B/P (MAP) Pulse Ox O2 Delivery O2 Flow Rate FiO2 03/15/18 07:00 92 20 170/91 (117) 94 Nasal Cannula 1.0 03/15/18 04:01 98.0 98.0 Physical Exam PHYSICAL EXAM GENERAL: NAD, alert, looks really well HENT: PERRLA, Oc/Op -clear NECK: no JVD LUNGS: CTA CV: S1/S2 ABDOMEN: Obese, hypoactive but + bowel sounds, soft, no rebound/guard. less distension EXT: No gross edema or cyanosis. right groin dressing clean SKIN: warm without rash NEURO: - alert/appropriate/pleasant Right PICC line - clean Labs Lab Laboratory Tests Test 03/14/18 08:00 03/14/18 11:21 03/14/18 14:19 03/14/18 16:45 O2 Saturation 94 % (92-99) 95 % (92-99) Arterial Blood pH 7.41 (7.35-7.45) 7.42 (7.35-7.45) Arterial Blood pCO2 at Patient Temp 32 mmHg (35-46) 42 mmHg (35-46) Arterial Blood pO2 at Patient Temp 70 mmHg (85-108) 76 mmHg (85-108) Arterial Blood HCO3 20 mmol/L (21-28) 26 mmol/L (21-28) Arterial Blood Base Excess -4 mmol/L (-3-3) 2 mmol/L (-3-3) FiO2 40 40 Glucose (Fingerstick) 159 mg/dL (70-99) Oxyhemoglobin 94.1 % Methemoglobin 0.4 % (0.0-1.9) Carbon Monoxide, Quantitative 0.5 % (0.0-1.9) Potassium Level 3.6 mmol/L (3.5-5.1) Test 03/14/18 17:05 03/14/18 19:15 03/15/18 04:40 Glucose (Fingerstick) 130 mg/dL (70-99) 148 mg/dL (70-99) White Blood Count 11.1 x10^3/uL (4.0-11.0) Red Blood Count 3.98 x10^6/uL (4.30-5.70) Hemoglobin 12.0 g/dL (13.0-17.5) Hematocrit 35.8 % (39.0-53.0) Mean Corpuscular Volume 90 fL (79-100) Mean Corpuscular Hemoglobin 30 pg (25-35) Mean Corpuscular Hemoglobin Concent 34 g/dL (31-37) Red Cell Distribution Width 13.7 % (11.5-14.5) Platelet Count 526 x10^3/uL (140-400) Neutrophils (%) (Auto) 72 % (31-73) Lymphocytes (%) (Auto) 16 % (24-48) Monocytes (%) (Auto) 10 % (0-9) Eosinophils (%) (Auto) 2 % (0-3) Basophils (%) (Auto) 1 % (0-3) Neutrophils # (Auto) 7.9 x10^3uL (1.8-7.7) Lymphocytes # (Auto) 1.7 x10^3/uL (1.0-4.8) Monocytes # (Auto) 1.1 x10^3/uL (0.0-1.1) Eosinophils # (Auto) 0.2 x10^3/uL (0.0-0.7) Basophils # (Auto) 0.1 x10^3/uL (0.0-0.2) Sodium Level 144 mmol/L (136-145) Potassium Level 3.6 mmol/L (3.5-5.1) Chloride Level 106 mmol/L (98-107) Carbon Dioxide Level 28 mmol/L (21-32) Anion Gap 10 (6-14) Blood Urea Nitrogen 14 mg/dL (8-26) Creatinine 1.0 mg/dL (0.7-1.3) Estimated GFR (Cockcroft-Gault) 84.5 Glucose Level 136 mg/dL (70-99) Calcium Level 9.2 mg/dL (8.5-10.1) Micro Microbiology 03/09/18 Blood Culture - Preliminary, Resulted NO GROWTH AFTER [address] 03/11 IMPRESSION: 1. Life support devices in appropriate position. 2. No large central pulmonary embolus. Lobar, segmental, subsegmental pulmonary arteries cannot be evaluated due to limited contrast opacification. 3. Moderate consolidations with air bronchograms in the bilateral lower lobes. Considerations include aspiration, pneumonia, or atelectasis. 4. Persistent diverticulitis of the sigmoid colon. There is a small incompletely formed probable peridiverticular abscess. 5. Fatty infiltration of the liver. Objective Assessment Fever - nursing reported severe anxiety yesterday all day surrounding extubation s/p code blue, 03/09 Sepsis w/ hypotension requiring vasopressor support previously but now off. - BC from 03/07 NGTD. Fever curve improving Leukocytosis - ? reactive - clinically looks well Acute diverticulitis with microperforation -gen surgery following, on bowel rest Allergy Cipro - rash RONNY Acute respiratory failure ? ARDS developing -improving per Dr. Galo Substance abuse. urine tox + cocaine and marijuana 03/07 & 03/09 PUD / GERD Etoh dependence Morbid obesity, BMI 41 Hypertension Recently hosp [facility] & EGD- ulcers Rx on omeprazole per Plan Plan of Care Clinically he is much improved Continue Zosyn and micafungin Procalcitonin today Monitor labs/VSS CT scan today per Gen surg D/w D/w LAURA MORENO MD Mar 15, 2018 08:04
[2018-03-15] MEDS: IPRATRPIUM/ALBUTEROL 0.5/2.5MG 3 ML NEBU. NEB SCH (08:27)
[2018-03-15] MEDS: PANTOPRAZOLE IV PUSH 40 MG VIAL. IVP SCH ×2 (08:29→20:59)
[2018-03-15] MEDS: hydrALAZINE 20 MG/ML VIAL. IVP PRN ×2 (08:30→11:37)
[2018-03-15] MEDS: ENOXAPARIN 40 MG/0.4 ML SYRINGE. SQ SCH ×2 (08:30→21:00)
[2018-03-15 08:38] LABS: BASE EXCESS COOX 1 mmol/L (-3-3); HCO3 COOX 25 mmol/L (21-28); METHEMOGLOBIN 0.3 % (0.0-1.9); OXYHEMOGLOBIN 93.6 %; PCO2 COOX 37 mmHg (35-46); PO2 COOX 76 mmHg (85-108); SAT O2 COOX 94 % (92-99)
[2018-03-15] MEDS ORDERED: LABETALOL 20 MG/4 ML DISP.SYRIN. IVP PRN (09:30)
--- NOTE | 2018-03-15 09:32 | PDOC ---
SURGICAL PROGRESS NOTE Subjective Doing well, no pain. Vital Signs Vital Signs Date Time Temp Pulse Resp B/P (MAP) Pulse Ox O2 Delivery O2 Flow Rate FiO2 03/15/18 09:00 137 24 187/92 (123) 94 Nasal Cannula 1.0 03/15/18 08:00 99.2 99.2 I&O Intake and Output 03/15/18 07:00 Intake Total 2469 ml Output Total 7145 ml Balance -4676 ml Intake Oral 20 ml IV Total 2449 ml Output Urine Total 6895 ml Gastric Drainage Total 250 ml # Bowel Movements 1 PATIENT HAS A ZELAYA: No General: Alert, Oriented X3, Cooperative, mild distress Abdomen: Normal bowel sounds, Soft, No tenderness Labs Laboratory Tests Test 03/13/18 13:00 03/13/18 17:20 03/13/18 21:58 03/14/18 06:15 O2 Saturation 94 % (92-99) Arterial Blood pH 7.21 (7.35-7.45) Arterial Blood pCO2 at Patient Temp 69 mmHg (35-46) Arterial Blood pO2 at Patient Temp 87 mmHg (85-108) Arterial Blood HCO3 27 mmol/L (21-28) Arterial Blood Base Excess -3 mmol/L (-3-3) FiO2 40 Glucose (Fingerstick) 123 mg/dL (70-99) 115 mg/dL (70-99) White Blood Count 7.7 x10^3/uL (4.0-11.0) Red Blood Count 3.84 x10^6/uL (4.30-5.70) Hemoglobin 11.5 g/dL (13.0-17.5) Hematocrit 34.7 % (39.0-53.0) Mean Corpuscular Volume 90 fL (79-100) Mean Corpuscular Hemoglobin 30 pg (25-35) Mean Corpuscular Hemoglobin Concent 33 g/dL (31-37) Red Cell Distribution Width 14.2 % (11.5-14.5) Platelet Count 352 x10^3/uL (140-400) Neutrophils (%) (Auto) 71 % (31-73) Lymphocytes (%) (Auto) 14 % (24-48) Monocytes (%) (Auto) 9 % (0-9) Eosinophils (%) (Auto) 6 % (0-3) Basophils (%) (Auto) 0 % (0-3) Neutrophils # (Auto) 5.5 x10^3uL (1.8-7.7) Lymphocytes # (Auto) 1.1 x10^3/uL (1.0-4.8) Monocytes # (Auto) 0.7 x10^3/uL (0.0-1.1) Eosinophils # (Auto) 0.4 x10^3/uL (0.0-0.7) Basophils # (Auto) 0.0 x10^3/uL (0.0-0.2) Sodium Level 142 mmol/L (136-145) Potassium Level 3.8 mmol/L (3.5-5.1) Chloride Level 106 mmol/L (98-107) Carbon Dioxide Level 27 mmol/L (21-32) Anion Gap 9 (6-14) Blood Urea Nitrogen 11 mg/dL (8-26) Creatinine 0.8 mg/dL (0.7-1.3) Estimated GFR (Cockcroft-Gault) 109.4 Glucose Level 140 mg/dL (70-99) Calcium Level 8.9 mg/dL (8.5-10.1) Phosphorus Level 3.6 mg/dL (2.6-4.7) Magnesium Level 1.9 mg/dL (1.8-2.4) Test 03/14/18 08:00 03/14/18 11:21 03/14/18 14:19 03/14/18 16:45 O2 Saturation 94 % (92-99) 95 % (92-99) Arterial Blood pH 7.41 (7.35-7.45) 7.42 (7.35-7.45) Arterial Blood pCO2 at Patient Temp 32 mmHg (35-46) 42 mmHg (35-46) Arterial Blood pO2 at Patient Temp 70 mmHg (85-108) 76 mmHg (85-108) Arterial Blood HCO3 20 mmol/L (21-28) 26 mmol/L (21-28) Arterial Blood Base Excess -4 mmol/L (-3-3) 2 mmol/L (-3-3) FiO2 40 40 Glucose (Fingerstick) 159 mg/dL (70-99) Oxyhemoglobin 94.1 % Methemoglobin 0.4 % (0.0-1.9) Carbon Monoxide, Quantitative 0.5 % (0.0-1.9) Potassium Level 3.6 mmol/L (3.5-5.1) Test 03/14/18 17:05 03/14/18 19:15 03/15/18 04:40 03/15/18 08:00 Glucose (Fingerstick) 130 mg/dL (70-99) 148 mg/dL (70-99) White Blood Count 11.1 x10^3/uL (4.0-11.0) Red Blood Count 3.98 x10^6/uL (4.30-5.70) Hemoglobin 12.0 g/dL (13.0-17.5) Hematocrit 35.8 % (39.0-53.0) Mean Corpuscular Volume 90 fL (79-100) Mean Corpuscular Hemoglobin 30 pg (25-35) Mean Corpuscular Hemoglobin Concent 34 g/dL (31-37) Red Cell Distribution Width 13.7 % (11.5-14.5) Platelet Count 526 x10^3/uL (140-400) Neutrophils (%) (Auto) 72 % (31-73) Lymphocytes (%) (Auto) 16 % (24-48) Monocytes (%) (Auto) 10 % (0-9) Eosinophils (%) (Auto) 2 % (0-3) Basophils (%) (Auto) 1 % (0-3) Neutrophils # (Auto) 7.9 x10^3uL (1.8-7.7) Lymphocytes # (Auto) 1.7 x10^3/uL (1.0-4.8) Monocytes # (Auto) 1.1 x10^3/uL (0.0-1.1) Eosinophils # (Auto) 0.2 x10^3/uL (0.0-0.7) Basophils # (Auto) 0.1 x10^3/uL (0.0-0.2) Sodium Level 144 mmol/L (136-145) Potassium Level 3.6 mmol/L (3.5-5.1) Chloride Level 106 mmol/L (98-107) Carbon Dioxide Level 28 mmol/L (21-32) Anion Gap 10 (6-14) Blood Urea Nitrogen 14 mg/dL (8-26) Creatinine 1.0 mg/dL (0.7-1.3) Estimated GFR (Cockcroft-Gault) 84.5 Glucose Level 136 mg/dL (70-99) Calcium Level 9.2 mg/dL (8.5-10.1) Procalcitonin 0.53 ng/mL (0.00-0.10) O2 Saturation 94 % (92-99) Arterial Blood pH 7.44 (7.35-7.45) Arterial Blood pCO2 at Patient Temp 37 mmHg (35-46) Arterial Blood pO2 at Patient Temp 76 mmHg (85-108) Arterial Blood HCO3 25 mmol/L (21-28) Arterial Blood Base Excess 1 mmol/L (-3-3) Oxyhemoglobin 93.6 % Methemoglobin 0.3 % (0.0-1.9) Carbon Monoxide, Quantitative 0.4 % (0.0-1.9) FiO2 24 Laboratory Tests Test 03/14/18 11:21 03/14/18 14:19 03/14/18 16:45 03/14/18 17:05 Glucose (Fingerstick) 159 mg/dL (70-99) 130 mg/dL (70-99) O2 Saturation 95 % (92-99) Arterial Blood pH 7.42 (7.35-7.45) Arterial Blood pCO2 at Patient Temp 42 mmHg (35-46) Arterial Blood pO2 at Patient Temp 76 mmHg (85-108) Arterial Blood HCO3 26 mmol/L (21-28) Arterial Blood Base Excess 2 mmol/L (-3-3) Oxyhemoglobin 94.1 % Methemoglobin 0.4 % (0.0-1.9) Carbon Monoxide, Quantitative 0.5 % (0.0-1.9) FiO2 40 Potassium Level 3.6 mmol/L (3.5-5.1) Test 03/14/18 19:15 03/15/18 04:40 03/15/18 08:00 Glucose (Fingerstick) 148 mg/dL (70-99) White Blood Count 11.1 x10^3/uL (4.0-11.0) Red Blood Count 3.98 x10^6/uL (4.30-5.70) Hemoglobin 12.0 g/dL (13.0-17.5) Hematocrit 35.8 % (39.0-53.0) Mean Corpuscular Volume 90 fL (79-100) Mean Corpuscular Hemoglobin 30 pg (25-35) Mean Corpuscular Hemoglobin Concent 34 g/dL (31-37) Red Cell Distribution Width 13.7 % (11.5-14.5) Platelet Count 526 x10^3/uL (140-400) Neutrophils (%) (Auto) 72 % (31-73) Lymphocytes (%) (Auto) 16 % (24-48) Monocytes (%) (Auto) 10 % (0-9) Eosinophils (%) (Auto) 2 % (0-3) Basophils (%) (Auto) 1 % (0-3) Neutrophils # (Auto) 7.9 x10^3uL (1.8-7.7) Lymphocytes # (Auto) 1.7 x10^3/uL (1.0-4.8) Monocytes # (Auto) 1.1 x10^3/uL (0.0-1.1) Eosinophils # (Auto) 0.2 x10^3/uL (0.0-0.7) Basophils # (Auto) 0.1 x10^3/uL (0.0-0.2) Sodium Level 144 mmol/L (136-145) Potassium Level 3.6 mmol/L (3.5-5.1) Chloride Level 106 mmol/L (98-107) Carbon Dioxide Level 28 mmol/L (21-32) Anion Gap 10 (6-14) Blood Urea Nitrogen 14 mg/dL (8-26) Creatinine 1.0 mg/dL (0.7-1.3) Estimated GFR (Cockcroft-Gault) 84.5 Glucose Level 136 mg/dL (70-99) Calcium Level 9.2 mg/dL (8.5-10.1) Procalcitonin 0.53 ng/mL (0.00-0.10) O2 Saturation 94 % (92-99) Arterial Blood pH 7.44 (7.35-7.45) Arterial Blood pCO2 at Patient Temp 37 mmHg (35-46) Arterial Blood pO2 at Patient Temp 76 mmHg (85-108) Arterial Blood HCO3 25 mmol/L (21-28) Arterial Blood Base Excess 1 mmol/L (-3-3) Oxyhemoglobin 93.6 % Methemoglobin 0.3 % (0.0-1.9) Carbon Monoxide, Quantitative 0.4 % (0.0-1.9) FiO2 24 Problem List Problems Medical Problems: (1) Diverticulitis of colon with perforation Status: Acute Assessment/Plan Diverticulitis, off vent Awaiting swallow study if ok then CT with contrast TONIA KENYON MD Mar 15, 2018 09:32
--- NOTE | 2018-03-15 11:00 | PDOC ---
PULMONARY PROGRESS NOTES Subjective extubated yesterday. Doing better increase HR with Nebs Vitals Vital Signs Date Time Temp Pulse Resp B/P (MAP) Pulse Ox O2 Delivery O2 Flow Rate FiO2 03/15/18 10:00 105 20 161/80 (107) 94 Nasal Cannula 2.0 03/15/18 08:00 99.2 99.2 General: Alert, No acute distress Lungs: Clear Cardiovascular: S1, S2 Abdomen: Soft Neuro Exam: Alert Extremities: Other (EDEMA) Skin: Warm Labs Laboratory Tests Test 03/13/18 13:00 03/13/18 17:20 03/13/18 21:58 03/14/18 06:15 O2 Saturation 94 % (92-99) Arterial Blood pH 7.21 (7.35-7.45) Arterial Blood pCO2 at Patient Temp 69 mmHg (35-46) Arterial Blood pO2 at Patient Temp 87 mmHg (85-108) Arterial Blood HCO3 27 mmol/L (21-28) Arterial Blood Base Excess -3 mmol/L (-3-3) FiO2 40 Glucose (Fingerstick) 123 mg/dL (70-99) 115 mg/dL (70-99) White Blood Count 7.7 x10^3/uL (4.0-11.0) Red Blood Count 3.84 x10^6/uL (4.30-5.70) Hemoglobin 11.5 g/dL (13.0-17.5) Hematocrit 34.7 % (39.0-53.0) Mean Corpuscular Volume 90 fL (79-100) Mean Corpuscular Hemoglobin 30 pg (25-35) Mean Corpuscular Hemoglobin Concent 33 g/dL (31-37) Red Cell Distribution Width 14.2 % (11.5-14.5) Platelet Count 352 x10^3/uL (140-400) Neutrophils (%) (Auto) 71 % (31-73) Lymphocytes (%) (Auto) 14 % (24-48) Monocytes (%) (Auto) 9 % (0-9) Eosinophils (%) (Auto) 6 % (0-3) Basophils (%) (Auto) 0 % (0-3) Neutrophils # (Auto) 5.5 x10^3uL (1.8-7.7) Lymphocytes # (Auto) 1.1 x10^3/uL (1.0-4.8) Monocytes # (Auto) 0.7 x10^3/uL (0.0-1.1) Eosinophils # (Auto) 0.4 x10^3/uL (0.0-0.7) Basophils # (Auto) 0.0 x10^3/uL (0.0-0.2) Sodium Level 142 mmol/L (136-145) Potassium Level 3.8 mmol/L (3.5-5.1) Chloride Level 106 mmol/L (98-107) Carbon Dioxide Level 27 mmol/L (21-32) Anion Gap 9 (6-14) Blood Urea Nitrogen 11 mg/dL (8-26) Creatinine 0.8 mg/dL (0.7-1.3) Estimated GFR (Cockcroft-Gault) 109.4 Glucose Level 140 mg/dL (70-99) Calcium Level 8.9 mg/dL (8.5-10.1) Phosphorus Level 3.6 mg/dL (2.6-4.7) Magnesium Level 1.9 mg/dL (1.8-2.4) Test 03/14/18 08:00 03/14/18 11:21 03/14/18 14:19 03/14/18 16:45 O2 Saturation 94 % (92-99) 95 % (92-99) Arterial Blood pH 7.41 (7.35-7.45) 7.42 (7.35-7.45) Arterial Blood pCO2 at Patient Temp 32 mmHg (35-46) 42 mmHg (35-46) Arterial Blood pO2 at Patient Temp 70 mmHg (85-108) 76 mmHg (85-108) Arterial Blood HCO3 20 mmol/L (21-28) 26 mmol/L (21-28) Arterial Blood Base Excess -4 mmol/L (-3-3) 2 mmol/L (-3-3) FiO2 40 40 Glucose (Fingerstick) 159 mg/dL (70-99) Oxyhemoglobin 94.1 % Methemoglobin 0.4 % (0.0-1.9) Carbon Monoxide, Quantitative 0.5 % (0.0-1.9) Potassium Level 3.6 mmol/L (3.5-5.1) Test 03/14/18 17:05 03/14/18 19:15 03/15/18 04:40 03/15/18 08:00 Glucose (Fingerstick) 130 mg/dL (70-99) 148 mg/dL (70-99) White Blood Count 11.1 x10^3/uL (4.0-11.0) Red Blood Count 3.98 x10^6/uL (4.30-5.70) Hemoglobin 12.0 g/dL (13.0-17.5) Hematocrit 35.8 % (39.0-53.0) Mean Corpuscular Volume 90 fL (79-100) Mean Corpuscular Hemoglobin 30 pg (25-35) Mean Corpuscular Hemoglobin Concent 34 g/dL (31-37) Red Cell Distribution Width 13.7 % (11.5-14.5) Platelet Count 526 x10^3/uL (140-400) Neutrophils (%) (Auto) 72 % (31-73) Lymphocytes (%) (Auto) 16 % (24-48) Monocytes (%) (Auto) 10 % (0-9) Eosinophils (%) (Auto) 2 % (0-3) Basophils (%) (Auto) 1 % (0-3) Neutrophils # (Auto) 7.9 x10^3uL (1.8-7.7) Lymphocytes # (Auto) 1.7 x10^3/uL (1.0-4.8) Monocytes # (Auto) 1.1 x10^3/uL (0.0-1.1) Eosinophils # (Auto) 0.2 x10^3/uL (0.0-0.7) Basophils # (Auto) 0.1 x10^3/uL (0.0-0.2) Sodium Level 144 mmol/L (136-145) Potassium Level 3.6 mmol/L (3.5-5.1) Chloride Level 106 mmol/L (98-107) Carbon Dioxide Level 28 mmol/L (21-32) Anion Gap 10 (6-14) Blood Urea Nitrogen 14 mg/dL (8-26) Creatinine 1.0 mg/dL (0.7-1.3) Estimated GFR (Cockcroft-Gault) 84.5 Glucose Level 136 mg/dL (70-99) Calcium Level 9.2 mg/dL (8.5-10.1) Procalcitonin 0.53 ng/mL (0.00-0.10) O2 Saturation 94 % (92-99) Arterial Blood pH 7.44 (7.35-7.45) Arterial Blood pCO2 at Patient Temp 37 mmHg (35-46) Arterial Blood pO2 at Patient Temp 76 mmHg (85-108) Arterial Blood HCO3 25 mmol/L (21-28) Arterial Blood Base Excess 1 mmol/L (-3-3) Oxyhemoglobin 93.6 % Methemoglobin 0.3 % (0.0-1.9) Carbon Monoxide, Quantitative 0.4 % (0.0-1.9) FiO2 24 Laboratory Tests Test 03/14/18 11:21 03/14/18 14:19 03/14/18 16:45 03/14/18 17:05 Glucose (Fingerstick) 159 mg/dL (70-99) 130 mg/dL (70-99) O2 Saturation 95 % (92-99) Arterial Blood pH 7.42 (7.35-7.45) Arterial Blood pCO2 at Patient Temp 42 mmHg (35-46) Arterial Blood pO2 at Patient Temp 76 mmHg (85-108) Arterial Blood HCO3 26 mmol/L (21-28) Arterial Blood Base Excess 2 mmol/L (-3-3) Oxyhemoglobin 94.1 % Methemoglobin 0.4 % (0.0-1.9) Carbon Monoxide, Quantitative 0.5 % (0.0-1.9) FiO2 40 Potassium Level 3.6 mmol/L (3.5-5.1) Test 03/14/18 19:15 03/15/18 04:40 03/15/18 08:00 Glucose (Fingerstick) 148 mg/dL (70-99) White Blood Count 11.1 x10^3/uL (4.0-11.0) Red Blood Count 3.98 x10^6/uL (4.30-5.70) Hemoglobin 12.0 g/dL (13.0-17.5) Hematocrit 35.8 % (39.0-53.0) Mean Corpuscular Volume 90 fL (79-100) Mean Corpuscular Hemoglobin 30 pg (25-35) Mean Corpuscular Hemoglobin Concent 34 g/dL (31-37) Red Cell Distribution Width 13.7 % (11.5-14.5) Platelet Count 526 x10^3/uL (140-400) Neutrophils (%) (Auto) 72 % (31-73) Lymphocytes (%) (Auto) 16 % (24-48) Monocytes (%) (Auto) 10 % (0-9) Eosinophils (%) (Auto) 2 % (0-3) Basophils (%) (Auto) 1 % (0-3) Neutrophils # (Auto) 7.9 x10^3uL (1.8-7.7) Lymphocytes # (Auto) 1.7 x10^3/uL (1.0-4.8) Monocytes # (Auto) 1.1 x10^3/uL (0.0-1.1) Eosinophils # (Auto) 0.2 x10^3/uL (0.0-0.7) Basophils # (Auto) 0.1 x10^3/uL (0.0-0.2) Sodium Level 144 mmol/L (136-145) Potassium Level 3.6 mmol/L (3.5-5.1) Chloride Level 106 mmol/L (98-107) Carbon Dioxide Level 28 mmol/L (21-32) Anion Gap 10 (6-14) Blood Urea Nitrogen 14 mg/dL (8-26) Creatinine 1.0 mg/dL (0.7-1.3) Estimated GFR (Cockcroft-Gault) 84.5 Glucose Level 136 mg/dL (70-99) Calcium Level 9.2 mg/dL (8.5-10.1) Procalcitonin 0.53 ng/mL (0.00-0.10) O2 Saturation 94 % (92-99) Arterial Blood pH 7.44 (7.35-7.45) Arterial Blood pCO2 at Patient Temp 37 mmHg (35-46) Arterial Blood pO2 at Patient Temp 76 mmHg (85-108) Arterial Blood HCO3 25 mmol/L (21-28) Arterial Blood Base Excess 1 mmol/L (-3-3) Oxyhemoglobin 93.6 % Methemoglobin 0.3 % (0.0-1.9) Carbon Monoxide, Quantitative 0.4 % (0.0-1.9) FiO2 24 Medications Active Scripts Medications Dose Route/Sig Max Daily Dose Days Date Category Amlodipine Besylate 5 Mg Tablet 5 Mg PO DAILY 03/14/18 Reported Omeprazole 40 Mg Capsule.dr Hawkins Cap PO BID 03/14/18 Reported Comments CTA CHEST REVIEWED 1. Life support devices in appropriate position. 2. No large central pulmonary embolus. Lobar, segmental, subsegmental pulmonary arteries cannot be evaluated due to limited contrast opacification. 3. Moderate consolidations with air bronchograms in the bilateral lower lobes. Considerations include aspiration, pneumonia, or atelectasis. 4. Persistent diverticulitis of the sigmoid colon. There is a small incompletely formed probable peridiverticular abscess. 5. Fatty infiltration of the liver. Electronically signed by: Akbar Naqvi MD (03/11/2018 11:21 AM) [id number] CXR 03/15 reviewed MILD BILATERAL INFIL Impression . IMPRESSION: 1. Acute respiratory failure, status post code blue. Etiology likely ALI/EARLY ARDS due to diverticulitis . Extubated 03/14 2. Status post code blue patient with spontaneous return of circulation after one defibrillation and 2 minutes of chest compressions. 3. Septic shock.off pressor 4. Diverticulitis leading to septic shock. ? abscess/ suspected perf. diverticulitis, clinically improving. Repeat ct abdomen per surgery 5. Metabolic acidosis secondary to code blue, increased work of breathing and renal insufficiency. improved 6. Morbid obesity. 7. Leukocytosis. 8. Obstructive sleep apnea. 9. Possible aspiration pneumonia. 10. No central PE by CTA, Plan . D/W RN/ EXTUBATED. DOING WELL ON CANULA CONSULT PT/ SPEECH ORAL CONTRAST FOR CT ABDOMEN ONCE CLEARED BY SPEECH FOR PO LOVENOX FOR DVT PROPHYLAXIS NO SHUNT ON ECHO NEG VENOUS DOPPLER ANTIBX PER ID FOLLOW SURGERY REC TPN GI PROPH CHANGE NEBS TO ATROVENT ONLY D/W RN/ LOY TIJERINA MD Mar 15, 2018 11:00
[2018-03-15 11:46] LABS: PHOSPHORUS 4.7 mg/dL (2.6-4.7)
--- NOTE | 2018-03-15 11:53 | PDOC ---
TERRYALLIE RAMIREZ SEAT COVERER 03/15/18 1153: CARDIO Progress Notes Date and Time Date of Service 03/15/2018 Time of Evaluation 1147 Subjective Subjective: No Chest Pain, No shortness of breath, No Palpitations, No Dizziness, Other (EXTUBATED 03/14/2018) Vitals Vitals Vital Signs Date Time Temp Pulse Resp B/P (MAP) Pulse Ox O2 Delivery O2 Flow Rate FiO2 03/15/18 11:37 105 185/90 03/15/18 11:00 20 94 Nasal Cannula 2.0 03/15/18 08:00 99.2 99.2 Weight Weight [ ] Input and Output Intake and Output Intake and Output 03/15/18 07:00 Intake Total 2469 ml Output Total 7145 ml Balance -4676 ml Intake Oral 20 ml IV Total 2449 ml Output Urine Total 6895 ml Gastric Drainage Total 250 ml # Bowel Movements 1 Laboratory Labs Laboratory Tests Test 03/14/18 14:19 03/14/18 16:45 03/14/18 17:05 03/14/18 19:15 O2 Saturation 95 % (92-99) Arterial Blood pH 7.42 (7.35-7.45) Arterial Blood pCO2 at Patient Temp 42 mmHg (35-46) Arterial Blood pO2 at Patient Temp 76 mmHg (85-108) Arterial Blood HCO3 26 mmol/L (21-28) Arterial Blood Base Excess 2 mmol/L (-3-3) Oxyhemoglobin 94.1 % Methemoglobin 0.4 % (0.0-1.9) Carbon Monoxide, Quantitative 0.5 % (0.0-1.9) FiO2 40 Potassium Level 3.6 mmol/L (3.5-5.1) Glucose (Fingerstick) 130 mg/dL (70-99) 148 mg/dL (70-99) Test 03/15/18 04:40 03/15/18 08:00 White Blood Count 11.1 x10^3/uL (4.0-11.0) Red Blood Count 3.98 x10^6/uL (4.30-5.70) Hemoglobin 12.0 g/dL (13.0-17.5) Hematocrit 35.8 % (39.0-53.0) Mean Corpuscular Volume 90 fL (79-100) Mean Corpuscular Hemoglobin 30 pg (25-35) Mean Corpuscular Hemoglobin Concent 34 g/dL (31-37) Red Cell Distribution Width 13.7 % (11.5-14.5) Platelet Count 526 x10^3/uL (140-400) Neutrophils (%) (Auto) 72 % (31-73) Lymphocytes (%) (Auto) 16 % (24-48) Monocytes (%) (Auto) 10 % (0-9) Eosinophils (%) (Auto) 2 % (0-3) Basophils (%) (Auto) 1 % (0-3) Neutrophils # (Auto) 7.9 x10^3uL (1.8-7.7) Lymphocytes # (Auto) 1.7 x10^3/uL (1.0-4.8) Monocytes # (Auto) 1.1 x10^3/uL (0.0-1.1) Eosinophils # (Auto) 0.2 x10^3/uL (0.0-0.7) Basophils # (Auto) 0.1 x10^3/uL (0.0-0.2) Sodium Level 144 mmol/L (136-145) Potassium Level 3.6 mmol/L (3.5-5.1) Chloride Level 106 mmol/L (98-107) Carbon Dioxide Level 28 mmol/L (21-32) Anion Gap 10 (6-14) Blood Urea Nitrogen 14 mg/dL (8-26) Creatinine 1.0 mg/dL (0.7-1.3) Estimated GFR (Cockcroft-Gault) 84.5 Glucose Level 136 mg/dL (70-99) Calcium Level 9.2 mg/dL (8.5-10.1) Procalcitonin 0.53 ng/mL (0.00-0.10) O2 Saturation 94 % (92-99) Arterial Blood pH 7.44 (7.35-7.45) Arterial Blood pCO2 at Patient Temp 37 mmHg (35-46) Arterial Blood pO2 at Patient Temp 76 mmHg (85-108) Arterial Blood HCO3 25 mmol/L (21-28) Arterial Blood Base Excess 1 mmol/L (-3-3) Oxyhemoglobin 93.6 % Methemoglobin 0.3 % (0.0-1.9) Carbon Monoxide, Quantitative 0.4 % (0.0-1.9) FiO2 24 Microbiology Micro Microbiology 03/09/18 Blood Culture - Final, Complete NO GROWTH AFTER 5 DAYS Physical Exam HEENT: Neck Supple W Full Motion Chest: Symmetric LUNGS: Other (diminished in bases posteriorly) Heart: S1S2, RRR, no murmurs, other (tele: SR) Abdomen: Soft N/T Extremities: No Edema Neurology: alert, oriented, follow commands Assessment Assessment 1. Acute hypoxic resp failure likely due to ARDS --extubated --per PULM 2. Acute cardiomyopathy - diastolic and systolic HF - likely multifactorial related to sepsis and ARDS --LVEF 35% by TTE on 03/10/2018 --repeat TTE pending for today --MPI vs cardiac cath next week 3. NSVT --none since 03/13/2018 4. HTN --start q6h metoprolol while waiting on swallow study; if passes, then convert to p.o. carvedilol 5. divertic perf with sepsis ANGEL SOLO MD 03/15/18 1912: CARDIO Progress Notes Assessment Assessment 1. Acute hypoxic resp failure likely due to ARDS. Extubated. Follow by the pulmonary service. 2. 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 EF of 35%. Repeat echocardiogram pending. Ischemic workup next week. 3. NSVT. Rhythm has been stable. 4. HTN on metoprolol. We'll convert to oral Coreg when able. - 5. divertic perf with sepsis SARAH AVILA MD 03/16/18 0731: CARDIO Progress Notes Assessment Assessment Patient seen and examined 03/15/18. Agree with SECTION CHIEF's assessment and plan. s/p extubation doing well Since etiology of sudden cardiopulm arrest not completely clear and LVEF is diminished we will proceed with cardiac cath sunday for definitive evaluation ALLIE DAVILA APRN Mar 15, 2018 11:53 ANGEL SOLO MD Mar 15, 2018 19:12 SARAH AVILA MD Mar 16, 2018 07:31
[2018-03-15] MEDS: IPRATROPIUM BROMIDE 0.5 MG/2.5 ML NEBU. NEB SCH ×3 (12:00→20:17)
[2018-03-15] MEDS ORDERED: IPRATROPIUM BROMIDE 0.5 MG/2.5 ML NEBU. NEB ONE (12:00)
--- NOTE | 2018-03-15 12:36 | PDOC ---
PROGRESS NOTES Chief Complaint Chief Complaint status post cardiac arrest, nonsustained V. 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 swallow eval pending, then po /iv contrast CT as per sx coreg added with card if can take po ativan x1 given talked to daily at bedside History of Present Illness History of Present Illness Admitted for perforation of the diverticulitis, first episode of diverticulitis. But about 6:15 AM Sunday, found on the ground, unresponsive, nonsustained V. tach, 2 minutes of CPR, with ROSC ICU, intubated, sedated, vent slightly down to 40%, PEEP 5. Failed CPAP trial 03/13 with high PCO2, agitation Sedated C-collar on. NEeded levophed sunday - but off pressors sunday talked to at bedside for a long time, who is not happy that someone told her that pt had heart attack i printed out the echo result to her and explained some possibilities for the CHF CT 03/11 showed diverticulitis, 2.4cm abscess 03/15: extubated 03/14. sinus HR 140s after duoneb, high BP. no abd pain. lasix x1 03/14, wbc higher to 11. Vitals Vitals Vital Signs Date Time Temp Pulse Resp B/P (MAP) Pulse Ox O2 Delivery O2 Flow Rate FiO2 03/15/18 12:00 98.7 119 20 164/89 (114) 94 Nasal Cannula 2.0 98.7 Physical Exam Physical Exam GENERAL: NAD, alert, looks really well HENT: PERRLA, Oc/Op -clear NECK: no JVD LUNGS: CTA CV: S1/S2 tachycardia ABDOMEN: Obese, hypoactive but + bowel sounds, soft, no rebound/guard. less distension EXT: No gross edema or cyanosis. right groin dressing clean SKIN: warm without rash NEURO: - alert/appropriate/pleasant Right PICC line - clean General: Alert, Oriented X3, Cooperative, mild distress Heart: Regular rate Lungs: Clear Abdomen: Soft, No tenderness Extremities: No clubbing, No cyanosis Skin: No rashes, No breakdown Labs LABS Laboratory Tests Test 03/14/18 14:19 03/14/18 16:45 03/14/18 17:05 03/14/18 19:15 O2 Saturation 95 % (92-99) Arterial Blood pH 7.42 (7.35-7.45) Arterial Blood pCO2 at Patient Temp 42 mmHg (35-46) Arterial Blood pO2 at Patient Temp 76 mmHg (85-108) Arterial Blood HCO3 26 mmol/L (21-28) Arterial Blood Base Excess 2 mmol/L (-3-3) Oxyhemoglobin 94.1 % Methemoglobin 0.4 % (0.0-1.9) Carbon Monoxide, Quantitative 0.5 % (0.0-1.9) FiO2 40 Potassium Level 3.6 mmol/L (3.5-5.1) Glucose (Fingerstick) 130 mg/dL (70-99) 148 mg/dL (70-99) Test 03/15/18 04:40 03/15/18 08:00 03/15/18 11:41 White Blood Count 11.1 x10^3/uL (4.0-11.0) Red Blood Count 3.98 x10^6/uL (4.30-5.70) Hemoglobin 12.0 g/dL (13.0-17.5) Hematocrit 35.8 % (39.0-53.0) Mean Corpuscular Volume 90 fL (79-100) Mean Corpuscular Hemoglobin 30 pg (25-35) Mean Corpuscular Hemoglobin Concent 34 g/dL (31-37) Red Cell Distribution Width 13.7 % (11.5-14.5) Platelet Count 526 x10^3/uL (140-400) Neutrophils (%) (Auto) 72 % (31-73) Lymphocytes (%) (Auto) 16 % (24-48) Monocytes (%) (Auto) 10 % (0-9) Eosinophils (%) (Auto) 2 % (0-3) Basophils (%) (Auto) 1 % (0-3) Neutrophils # (Auto) 7.9 x10^3uL (1.8-7.7) Lymphocytes # (Auto) 1.7 x10^3/uL (1.0-4.8) Monocytes # (Auto) 1.1 x10^3/uL (0.0-1.1) Eosinophils # (Auto) 0.2 x10^3/uL (0.0-0.7) Basophils # (Auto) 0.1 x10^3/uL (0.0-0.2) Sodium Level 144 mmol/L (136-145) Potassium Level 3.6 mmol/L (3.5-5.1) Chloride Level 106 mmol/L (98-107) Carbon Dioxide Level 28 mmol/L (21-32) Anion Gap 10 (6-14) Blood Urea Nitrogen 14 mg/dL (8-26) Creatinine 1.0 mg/dL (0.7-1.3) Estimated GFR (Cockcroft-Gault) 84.5 Glucose Level 136 mg/dL (70-99) Calcium Level 9.2 mg/dL (8.5-10.1) Phosphorus Level 4.7 mg/dL (2.6-4.7) Magnesium Level 2.0 mg/dL (1.8-2.4) Procalcitonin 0.53 ng/mL (0.00-0.10) O2 Saturation 94 % (92-99) Arterial Blood pH 7.44 (7.35-7.45) Arterial Blood pCO2 at Patient Temp 37 mmHg (35-46) Arterial Blood pO2 at Patient Temp 76 mmHg (85-108) Arterial Blood HCO3 25 mmol/L (21-28) Arterial Blood Base Excess 1 mmol/L (-3-3) Oxyhemoglobin 93.6 % Methemoglobin 0.3 % (0.0-1.9) Carbon Monoxide, Quantitative 0.4 % (0.0-1.9) FiO2 24 Glucose (Fingerstick) 188 mg/dL (70-99) Assessment and Plan Assessmemt and Plan Problems Medical Problems: (1) Diverticulitis of colon with perforation Status: Acute Comment Review of Relevant I have reviewed the following items kalin (where applicable) has been applied. Labs Laboratory Tests Test 03/13/18 13:00 03/13/18 17:20 03/13/18 21:58 03/14/18 06:15 O2 Saturation 94 % (92-99) Arterial Blood pH 7.21 (7.35-7.45) Arterial Blood pCO2 at Patient Temp 69 mmHg (35-46) Arterial Blood pO2 at Patient Temp 87 mmHg (85-108) Arterial Blood HCO3 27 mmol/L (21-28) Arterial Blood Base Excess -3 mmol/L (-3-3) FiO2 40 Glucose (Fingerstick) 123 mg/dL (70-99) 115 mg/dL (70-99) White Blood Count 7.7 x10^3/uL (4.0-11.0) Red Blood Count 3.84 x10^6/uL (4.30-5.70) Hemoglobin 11.5 g/dL (13.0-17.5) Hematocrit 34.7 % (39.0-53.0) Mean Corpuscular Volume 90 fL (79-100) Mean Corpuscular Hemoglobin 30 pg (25-35) Mean Corpuscular Hemoglobin Concent 33 g/dL (31-37) Red Cell Distribution Width 14.2 % (11.5-14.5) Platelet Count 352 x10^3/uL (140-400) Neutrophils (%) (Auto) 71 % (31-73) Lymphocytes (%) (Auto) 14 % (24-48) Monocytes (%) (Auto) 9 % (0-9) Eosinophils (%) (Auto) 6 % (0-3) Basophils (%) (Auto) 0 % (0-3) Neutrophils # (Auto) 5.5 x10^3uL (1.8-7.7) Lymphocytes # (Auto) 1.1 x10^3/uL (1.0-4.8) Monocytes # (Auto) 0.7 x10^3/uL (0.0-1.1) Eosinophils # (Auto) 0.4 x10^3/uL (0.0-0.7) Basophils # (Auto) 0.0 x10^3/uL (0.0-0.2) Sodium Level 142 mmol/L (136-145) Potassium Level 3.8 mmol/L (3.5-5.1) Chloride Level 106 mmol/L (98-107) Carbon Dioxide Level 27 mmol/L (21-32) Anion Gap 9 (6-14) Blood Urea Nitrogen 11 mg/dL (8-26) Creatinine 0.8 mg/dL (0.7-1.3) Estimated GFR (Cockcroft-Gault) 109.4 Glucose Level 140 mg/dL (70-99) Calcium Level 8.9 mg/dL (8.5-10.1) Phosphorus Level 3.6 mg/dL (2.6-4.7) Magnesium Level 1.9 mg/dL (1.8-2.4) Test 03/14/18 08:00 03/14/18 11:21 03/14/18 14:19 03/14/18 16:45 O2 Saturation 94 % (92-99) 95 % (92-99) Arterial Blood pH 7.41 (7.35-7.45) 7.42 (7.35-7.45) Arterial Blood pCO2 at Patient Temp 32 mmHg (35-46) 42 mmHg (35-46) Arterial Blood pO2 at Patient Temp 70 mmHg (85-108) 76 mmHg (85-108) Arterial Blood HCO3 20 mmol/L (21-28) 26 mmol/L (21-28) Arterial Blood Base Excess -4 mmol/L (-3-3) 2 mmol/L (-3-3) FiO2 40 40 Glucose (Fingerstick) 159 mg/dL (70-99) Oxyhemoglobin 94.1 % Methemoglobin 0.4 % (0.0-1.9) Carbon Monoxide, Quantitative 0.5 % (0.0-1.9) Potassium Level 3.6 mmol/L (3.5-5.1) Test 03/14/18 17:05 03/14/18 19:15 03/15/18 04:40 03/15/18 08:00 Glucose (Fingerstick) 130 mg/dL (70-99) 148 mg/dL (70-99) White Blood Count 11.1 x10^3/uL (4.0-11.0) Red Blood Count 3.98 x10^6/uL (4.30-5.70) Hemoglobin 12.0 g/dL (13.0-17.5) Hematocrit 35.8 % (39.0-53.0) Mean Corpuscular Volume 90 fL (79-100) Mean Corpuscular Hemoglobin 30 pg (25-35) Mean Corpuscular Hemoglobin Concent 34 g/dL (31-37) Red Cell Distribution Width 13.7 % (11.5-14.5) Platelet Count 526 x10^3/uL (140-400) Neutrophils (%) (Auto) 72 % (31-73) Lymphocytes (%) (Auto) 16 % (24-48) Monocytes (%) (Auto) 10 % (0-9) Eosinophils (%) (Auto) 2 % (0-3) Basophils (%) (Auto) 1 % (0-3) Neutrophils # (Auto) 7.9 x10^3uL (1.8-7.7) Lymphocytes # (Auto) 1.7 x10^3/uL (1.0-4.8) Monocytes # (Auto) 1.1 x10^3/uL (0.0-1.1) Eosinophils # (Auto) 0.2 x10^3/uL (0.0-0.7) Basophils # (Auto) 0.1 x10^3/uL (0.0-0.2) Sodium Level 144 mmol/L (136-145) Potassium Level 3.6 mmol/L (3.5-5.1) Chloride Level 106 mmol/L (98-107) Carbon Dioxide Level 28 mmol/L (21-32) Anion Gap 10 (6-14) Blood Urea Nitrogen 14 mg/dL (8-26) Creatinine 1.0 mg/dL (0.7-1.3) Estimated GFR (Cockcroft-Gault) 84.5 Glucose Level 136 mg/dL (70-99) Calcium Level 9.2 mg/dL (8.5-10.1) Phosphorus Level 4.7 mg/dL (2.6-4.7) Magnesium Level 2.0 mg/dL (1.8-2.4) Procalcitonin 0.53 ng/mL (0.00-0.10) O2 Saturation 94 % (92-99) Arterial Blood pH 7.44 (7.35-7.45) Arterial Blood pCO2 at Patient Temp 37 mmHg (35-46) Arterial Blood pO2 at Patient Temp 76 mmHg (85-108) Arterial Blood HCO3 25 mmol/L (21-28) Arterial Blood Base Excess 1 mmol/L (-3-3) Oxyhemoglobin 93.6 % Methemoglobin 0.3 % (0.0-1.9) Carbon Monoxide, Quantitative 0.4 % (0.0-1.9) FiO2 24 Test 03/15/18 11:41 Glucose (Fingerstick) 188 mg/dL (70-99) Laboratory Tests Test 03/14/18 14:19 03/14/18 16:45 03/14/18 17:05 03/14/18 19:15 O2 Saturation 95 % (92-99) Arterial Blood pH 7.42 (7.35-7.45) Arterial Blood pCO2 at Patient Temp 42 mmHg (35-46) Arterial Blood pO2 at Patient Temp 76 mmHg (85-108) Arterial Blood HCO3 26 mmol/L (21-28) Arterial Blood Base Excess 2 mmol/L (-3-3) Oxyhemoglobin 94.1 % Methemoglobin 0.4 % (0.0-1.9) Carbon Monoxide, Quantitative 0.5 % (0.0-1.9) FiO2 40 Potassium Level 3.6 mmol/L (3.5-5.1) Glucose (Fingerstick) 130 mg/dL (70-99) 148 mg/dL (70-99) Test 03/15/18 04:40 03/15/18 08:00 03/15/18 11:41 White Blood Count 11.1 x10^3/uL (4.0-11.0) Red Blood Count 3.98 x10^6/uL (4.30-5.70) Hemoglobin 12.0 g/dL (13.0-17.5) Hematocrit 35.8 % (39.0-53.0) Mean Corpuscular Volume 90 fL (79-100) Mean Corpuscular Hemoglobin 30 pg (25-35) Mean Corpuscular Hemoglobin Concent 34 g/dL (31-37) Red Cell Distribution Width 13.7 % (11.5-14.5) Platelet Count 526 x10^3/uL (140-400) Neutrophils (%) (Auto) 72 % (31-73) Lymphocytes (%) (Auto) 16 % (24-48) Monocytes (%) (Auto) 10 % (0-9) Eosinophils (%) (Auto) 2 % (0-3) Basophils (%) (Auto) 1 % (0-3) Neutrophils # (Auto) 7.9 x10^3uL (1.8-7.7) Lymphocytes # (Auto) 1.7 x10^3/uL (1.0-4.8) Monocytes # (Auto) 1.1 x10^3/uL (0.0-1.1) Eosinophils # (Auto) 0.2 x10^3/uL (0.0-0.7) Basophils # (Auto) 0.1 x10^3/uL (0.0-0.2) Sodium Level 144 mmol/L (136-145) Potassium Level 3.6 mmol/L (3.5-5.1) Chloride Level 106 mmol/L (98-107) Carbon Dioxide Level 28 mmol/L (21-32) Anion Gap 10 (6-14) Blood Urea Nitrogen 14 mg/dL (8-26) Creatinine 1.0 mg/dL (0.7-1.3) Estimated GFR (Cockcroft-Gault) 84.5 Glucose Level 136 mg/dL (70-99) Calcium Level 9.2 mg/dL (8.5-10.1) Phosphorus Level 4.7 mg/dL (2.6-4.7) Magnesium Level 2.0 mg/dL (1.8-2.4) Procalcitonin 0.53 ng/mL (0.00-0.10) O2 Saturation 94 % (92-99) Arterial Blood pH 7.44 (7.35-7.45) Arterial Blood pCO2 at Patient Temp 37 mmHg (35-46) Arterial Blood pO2 at Patient Temp 76 mmHg (85-108) Arterial Blood HCO3 25 mmol/L (21-28) Arterial Blood Base Excess 1 mmol/L (-3-3) Oxyhemoglobin 93.6 % Methemoglobin 0.3 % (0.0-1.9) Carbon Monoxide, Quantitative 0.4 % (0.0-1.9) FiO2 24 Glucose (Fingerstick) 188 mg/dL (70-99) Microbiology 03/09/18 Blood Culture - Final, Complete NO GROWTH AFTER 5 DAYS Medications Current Medications Sodium Chloride (Normal Saline Flush) 3 ml QSHIFT PRN IV AFTER MEDS AND BLOOD DRAWS; Start 03/07/18 at 11:00 Sodium Chloride 1,000 ml @ 1,000 mls/hr Q1H IV Last administered on 03/07/18at 11:32; Start 03/07/18 at 11:00; Stop 03/07/18 at 11:59; Status DC Iohexol (Omnipaque 300 Mg/ml) 75 ml 1X ONCE IV Last administered on 03/07/18at 12:46; Start 03/07/18 at 11:15; Stop 03/07/18 at 11:16; Status DC Info (CONTRAST GIVEN -- Rx MONITORING) 1 each PRN DAILY PRN MC SEE COMMENTS; Start 03/07/18 at 11:15; Stop 03/09/18 at 11:14; Status DC Sodium Chloride 1,000 ml @ 1,000 mls/hr 1X ONCE IV Last administered on at 12:37; Start 03/07/18 at 12:00; Stop 03/07/18 at 12:59; Status DC Fentanyl Citrate (Fentanyl 2ml Vial) 50 mcg 1X ONCE IV Last administered on 03/07/18at 13:07; Start 03/07/18 at 13:00; Stop 03/07/18 at 13:01; Status DC Metronidazole 100 ml @ 100 mls/hr 1X ONCE IV ; Start 03/07/18 at 13:30; Stop at 14:29; Status DC Ciprofloxacin/ Dextrose 200 ml @ 200 mls/hr ONCE STAT IV Last administered on 03/07/18at 13:42; Start 03/07/18 at 13:12; Stop 03/07/18 at 14:11; Status DC Piperacillin Sod/ Tazobactam Sod 3.375 gm/Sodium Chloride 50 ml @ 100 mls/hr 1X ONCE IV Last administered on 03/07/18at 14:43; Start 03/07/18 at 14:30; Stop 03/07/18 at 14:59; Status DC Diphenhydramine HCl (Benadryl) 50 mg 1X ONCE IVP Last administered on at 14:33; Start 03/07/18 at 14:15; Stop 03/07/18 at 14:16; Status DC Fentanyl Citrate (Fentanyl 2ml Vial) 25 mcg 1X ONCE IV ; Start 03/07/18 at 14:15 ; Stop 03/07/18 at 14:16; Status Cancel Morphine Sulfate (Morphine Sulfate) 4 mg 1X ONCE IV Last administered on at 14:35; Start 03/07/18 at 14:30; Stop 03/07/18 at 14:31; Status DC Ondansetron HCl (Zofran) 4 mg PRN Q8HRS PRN IV NAUSEA/VOMITING; Start 03/07/18 at 14:30; Stop 03/08/18 at 14:29; Status DC Morphine Sulfate (Morphine Sulfate) 4 mg PRN Q2HR PRN IV PAIN Last administered on 03/08/18at 08:20; Start 03/07/18 at 14:30; Stop 03/08/18 at 14:29; Status DC Piperacillin Sod/ Tazobactam Sod 3.375 gm/Sodium Chloride 50 ml @ 100 mls/hr Q6HRS IV Last administered on 03/15/18at 11:37; Start 03/07/18 at 18:00 Metronidazole 100 ml @ 100 mls/hr Q8HRS IV Last administered on 03/09/18at 11:19 ; Start 03/07/18 at 22:00; Stop 03/09/18 at 15:10; Status DC Sodium Chloride 500 ml @ 500 mls/hr 1X ONCE IV Last administered on 03/07/18at 16:45; Start 03/07/18 at 16:45; Stop 03/07/18 at 17:44; Status DC Amino Acids/ Glycerin/ Electrolytes 1,000 ml @ 80 mls/hr [id number] IV Last administered on 03/11/18at 07:47; Start 03/07/18 at 16:45; Stop 03/11/18 at 20:21; Status DC Acetaminophen (Tylenol) 650 mg PRN Q6HRS PRN PO fever ; Start 03/07/18 at 18:00 Pantoprazole Sodium (PROTONIX VIAL for IV PUSH) 40 mg DAILYAC IVP Last administered on 03/14/18at 08:10; Start 03/08/18 at 07:45; Stop 03/14/18 at 17:45; Status DC Morphine Sulfate (Morphine Sulfate) 4 mg PRN Q2HR PRN IV MODRATE-SEVERE PAIN 2ND CHOICE Last administered on 03/15/18at 05:26; Start 03/08/18 at 14:45 Lorazepam (Ativan) 1 mg PRN Q4HRS PRN IV ANXIETY / AGITATION Last administered on 03/15/18at 09:11; Start 03/08/18 at 20:30 Ondansetron HCl (Zofran) 4 mg PRN Q6HRS PRN IV NAUSEA/VOMITING 1ST CHOICE Last administered on 03/14/18at 12:16; Start 03/09/18 at 02:00 Etomidate (Amidate) 20 mg STK-MED ONCE IV ; Start 03/09/18 at 06:55; Stop at 06:56; Status DC Norepinephrine Bitartrate 250 ml @ As Directed STK-MED ONCE IV ; Start 03/09/18 at 06:55; Stop 03/09/18 at 06:56; Status DC Midazolam HCl (Versed) 5 mg STK-MED ONCE .ROUTE ; Start 03/09/18 at 06:55; Stop 03/09/18 at 06:56; Status DC Fentanyl Citrate (Fentanyl 2ml Vial) 100 mcg STK-MED ONCE .ROUTE ; Start at 06:55; Stop 03/09/18 at 06:56; Status DC Succinylcholine Chloride (Anectine) 200 mg STK-MED ONCE .ROUTE ; Start 03/09/18 at 06:56; Stop 03/09/18 at 06:57; Status DC Fentanyl Citrate 30 ml @ 0 mls/hr CONT PRN IV PER PROTOCOL Last administered on 03/13/18at 03:06; Start 03/09/18 at 07:00; Stop 03/13/18 at 16:35; Status DC Fentanyl Citrate (Fentanyl 2ml Vial) 25 mcg PRN Q1HR PRN IV MILD PAIN; Start at 07:00 Fentanyl Citrate (Fentanyl 2ml Vial) 50 mcg PRN Q1HR PRN IV MOD TO SEVERE PAIN ; Start 03/09/18 at 07:00 Chlorhexidine Gluconate (Peridex) 15 ml BID MM Last administered on 03/14/18at 08 :11; Start 03/09/18 at 09:00; Stop 03/15/18 at 07:33; Status DC Midazolam HCl (Versed) 2 mg PRN Q30MIN PRN IV SEDATION; Start 03/09/18 at 07:00 ; Stop 03/10/18 at 10:26; Status DC Midazolam HCl 100 ml @ 0 mls/hr CONT PRN IV PER PROTOCOL Last administered on at 14:07; Start 03/09/18 at 07:00; Stop 03/13/18 at 16:35; Status DC Enoxaparin Sodium (Lovenox 40mg Syringe) 40 mg Q12H SQ Last administered on 03/10at 09:31; Start 03/09/18 at 09:00; Stop 03/10/18 at 12:01; Status DC Sodium Chloride 1,000 ml @ 75 mls/hr [id number] IV Last administered on 03/14/18at 02:48; Start 03/09/18 at 10:15; Stop 03/14/18 at 10:32; Status DC Sodium Chloride 1,000 ml @ 1,000 mls/hr 1X ONCE IV Last administered on at 10:15; Start 03/09/18 at 10:15; Stop 03/09/18 at 11:14; Status DC Norepinephrine Bitartrate 250 ml @ As Directed STK-MED ONCE IV ; Start 03/09/18 at 10:37; Stop 03/09/18 at 10:38; Status DC Phenylephrine HCl 20 mg/Sodium Chloride 252 ml @ 22.68 mls/ hr 1X ONCE IV ; Start 03/09/18 at 10:45; Stop 03/09/18 at 21:51; Status DC Iohexol (Omnipaque 300 Mg/ml) 75 ml 1X ONCE IV ; Start 03/09/18 at 11:30; Stop 03/09/18 at 11:35; Status DC Micafungin Sodium 100 mg/Dextrose 100 ml @ 100 mls/hr Q24H IV Last administered on 03/14/18at 17:08; Start 03/09/18 at 16:00 Linezolid/Dextrose 300 ml @ 300 mls/hr Q12H IV Last administered on 03/14/18at 04:58; Start 03/09/18 at 17:00; Stop 03/14/18 at 09:14; Status DC Norepinephrine Bitartrate 250 ml @ 1.875 mls/ hr CONT PRN IV SEE I/O RECORD Last administered on 03/09/18at 16:18; Start 03/09/18 at 16:00 Furosemide (Lasix) 40 mg 1X ONCE IVP Last administered on 03/10/18at 08:49; Start 03/10/18 at 09:00; Stop 03/10/18 at 09:01; Status DC Perflutren Protein Type A Microsphe (Optison) 0.66 mg STK-MED ONCE IV ; Start at 10:23; Stop 03/10/18 at 10:25; Status DC Enoxaparin Sodium (Lovenox Per Pharmacy Treatment Dosing) 1 each PRN DAILY PRN MC SEE COMMENTS; Start 03/10/18 at 12:00; Stop 03/11/18 at 12:50; Status DC Enoxaparin Sodium (Lovenox 150mg Syringe) 130 mg Q12H SQ Last administered on at 07:48; Start 03/10/18 at 21:00; Stop 03/11/18 at 12:51; Status DC Enoxaparin Sodium (Lovenox 100mg Syringe) 90 mg 1X ONCE SQ Last administered on 03/10/18at 13:53; Start 03/10/18 at 12:30; Stop 03/10/18 at 12:31; Status DC Perflutren Protein Type A Microsphe (Optison) 0.66 mg 1X ONCE IV Last administered on 03/10/18at 12:55; Start 03/10/18 at 13:00; Stop 03/10/18 at 13:01; Status DC Iohexol (Omnipaque 300 Mg/ml) 75 ml 1X ONCE IV Last administered on 03/11/18at 10:00; Start 03/11/18 at 09:00; Stop 03/11/18 at 09:01; Status DC Info (CONTRAST GIVEN -- Rx MONITORING) 1 each PRN DAILY PRN MC SEE COMMENTS; Start 03/11/18 at 09:00; Stop 03/13/18 at 08:59; Status DC Norepinephrine Bitartrate (Levophed 8mg/ 250ml Premix Drip) 8 mg STK-MED ONCE IV ; Start 03/09/18 at 07:00; Stop 03/11/18 at 08:58; Status DC Insulin Human Lispro (HumaLOG) 0-5 UNITS TIDWMEALS SQ Last administered on 03/15at 11:43; Start 03/11/18 at 12:00 Dextrose (Dextrose 50%-Water Syringe) 12.5 gm PRN Q15MIN PRN IV SEE COMMENTS; Start 03/11/18 at 09:15 Potassium Chloride/Water 50 ml @ 50 mls/hr 1X ONCE IV Last administered on 03/11at 09:43; Start 03/11/18 at 10:00; Stop 03/11/18 at 10:59; Status DC Info (Anti-Coagulation Monitoring By Pharmacy) 1 each PRN DAILY PRN MC SEE COMMENTS; Start 03/11/18 at 09:30; Stop 03/11/18 at 12:51; Status DC Info (Tpn Per Pharmacy) 1 each PRN DAILY PRN MC SEE COMMENTS Last administered on 03/14/18at 12:58; Start 03/11/18 at 11:15 Magnesium Sulfate 50 ml @ 25 mls/hr 1X ONCE IV Last administered on 03/11/18at 15:09; Start 03/11/18 at 16:00; Stop 03/11/18 at 17:59; Status DC Potassium Phosphate 13.6 mmol/Dextrose 104.5333 ml @ 52.267 m... ONCE ONCE IV Last administered on 03/11/18at 17:11; Start 03/11/18 at 18:00; Stop 03/11/18 at 19:59; Status DC Norepinephrine Bitartrate (Levophed 8mg/ 250ml Premix Drip) 8 mg STK-MED ONCE IV ; Start 03/09/18 at 11:00; Stop 03/11/18 at 12:37; Status DC Enoxaparin Sodium (Lovenox 40mg Syringe) 40 mg Q12HR SQ Last administered on 05/23at 08:30; Start 03/11/18 at 21:00 Sodium Chloride 90 meq/Potassium Chloride 50 meq/ Potassium Phosphate 13.6 mmol/ Magnesium Sulfate 10 meq/ Multivitamins 10 ml/Chromium/ Copper/Manganese/ Seleni /Zn 1 ml/ Total Parenteral Nutrition/Amino Acids/Dextrose/ Fat Emulsion Intravenous 1,800 ml @ 75 mls/hr TPN CONT IV Last administered on 03/11/18at 21 :44; Start 03/11/18 at 22:00; Stop 03/12/18 at 21:59; Status DC Potassium Chloride/Water 50 ml @ 50 mls/hr 1X ONCE IV Last administered on 03/12at 10:40; Start 03/12/18 at 09:30; Stop 03/12/18 at 10:29; Status DC Sodium Chloride 90 meq/Potassium Acetate 70 meq/ Potassium Phosphate 10 mmol/ Magnesium Sulfate 10 meq/ Multivitamins 10 ml/Chromium/ Copper/Manganese/ Seleni /Zn 1 ml/ Total Parenteral Nutrition/Amino Acids/Dextrose/ Fat Emulsion Intravenous 1,800 ml @ 75 mls/hr TPN CONT IV ; Start 03/12/18 at 22:00; Stop at 22:00; Status DC Sodium Chloride 90 meq/Potassium Chloride 70 meq/ Potassium Phosphate 10 mmol/ Magnesium Sulfate 10 meq/ Multivitamins 10 ml/Chromium/ Copper/Manganese/ Seleni /Zn 1 ml/ Total Parenteral Nutrition/Amino Acids/Dextrose/ Fat Emulsion Intravenous 1,800 ml @ 75 mls/hr TPN CONT IV Last administered on 03/12/18at 21 :41; Start 03/12/18 at 22:00; Stop 03/13/18 at 21:59; Status DC Benzocaine (Hurricaine One) 1 spray 1X ONCE MM ; Start 03/13/18 at 12:45; Stop 03/13/18 at 12:45; Status DC Promethazine HCl/ Codeine (Phenergan With Codeine) 5 ml PRN Q6HRS PRN PO COUGH Last administered on 03/14/18at 08:10; Start 03/13/18 at 12:45 Benzocaine (Hurricaine One) 1 spray 1X ONCE MM ; Start 03/13/18 at 12:45; Stop 03/13/18 at 12:45; Status DC Benzocaine (Hurricaine One) 1 spray 1X ONCE MM Last administered on 03/13/18at 16:11; Start 03/13/18 at 12:45; Stop 03/13/18 at 12:46; Status DC Sodium Chloride 90 meq/Potassium Chloride 70 meq/ Potassium Phosphate 13.6 mmol/ Magnesium Sulfate 10 meq/ Multivitamins 10 ml/Chromium/ Copper/Manganese/ Seleni /Zn 1 ml/ Total Parenteral Nutrition/Amino Acids/Dextrose/ Fat Emulsion Intravenous 1,800 ml @ 75 mls/hr TPN CONT IV Last administered on 03/13/18at 21 :53; Start 03/13/18 at 22:00; Stop 03/14/18 at 21:59; Status DC Propofol 100 ml @ As Directed STK-MED ONCE IV ; Start 03/13/18 at 15:47; Stop at 15:48; Status DC Propofol 100 ml @ 0 mls/hr CONT PRN IV PER PROTOCOL Last administered on at 05:04; Start 03/13/18 at 16:45; Stop 03/14/18 at 17:45; Status DC Hydralazine HCl (Apresoline Inj) 10 mg PRN Q4HRS PRN IVP ELEVATED BP, SEE COMMENTS Last administered on 03/15/18at 11:37; Start 03/14/18 at 09:00 Albuterol/ Ipratropium (Duoneb) 3 ml RTQID NEB Last administered on 03/15/18at 08:27; Start 03/14/18 at 12:00; Stop 03/15/18 at 11:01; Status DC Albuterol/ Ipratropium (Duoneb) 3 ml 1X ONCE NEB Last administered on at 09:36; Start 03/14/18 at 09:30; Stop 03/14/18 at 09:31; Status DC Dexmedetomidine HCl 200 mcg/ Sodium Chloride 50 ml @ 0 mls/hr CONT PRN IV PER PROTOCOL Last administered on 03/14/18at 14:17; Start 03/14/18 at 10:30; Stop 03/15 at 07:33; Status DC Sodium Chloride 500 ml @ 500 mls/hr 1X PRN PRN IV SEE COMMENTS; Start 03/14/18 at 10:30 Atropine Sulfate (ATROPINE 0.5mg SYRINGE) 0.5 mg PRN Q5MIN PRN IV SEE COMMENTS ; Start 03/14/18 at 10:30 Furosemide (Lasix) 40 mg 1X ONCE IVP Last administered on 03/14/18at 10:45; Start 03/14/18 at 10:30; Stop 03/14/18 at 10:31; Status DC Sodium Chloride 90 meq/Potassium Chloride 70 meq/ Potassium Phosphate 13.6 mmol/ Magnesium Sulfate 10 meq/ Multivitamins 10 ml/Chromium/ Copper/Manganese/ Seleni /Zn 1 ml/ Total Parenteral Nutrition/Amino Acids/Dextrose/ Fat Emulsion Intravenous 1,800 ml @ 75 mls/hr TPN CONT IV Last administered on 03/14/18at 22 :33; Start 03/14/18 at 22:00; Stop 03/15/18 at 21:59 Pantoprazole Sodium (PROTONIX VIAL for IV PUSH) 40 mg BID IVP Last administered on 03/15/18at 08:29; Start 03/15/18 at 09:00 Iohexol (Omnipaque 300 Mg/ml) 75 ml 1X ONCE IV ; Start 03/15/18 at 06:15; Stop 03/15/18 at 06:16; Status DC Iohexol (Omnipaque 240 Mg/ml) 50 ml 1X ONCE PO ; Start 03/15/18 at 06:15; Stop 03/15/18 at 06:16; Status DC Info (CONTRAST GIVEN -- Rx MONITORING) 1 each PRN DAILY PRN MC SEE COMMENTS; Start 03/15/18 at 06:15; Stop 03/17/18 at 06:14 Labetalol HCl (Normodyne) 20 mg PRN Q2HR PRN IVP HYPERTENSION, SEE COMMENTS Last administered on 03/15/18at 09:46; Start 03/15/18 at 09:30 Ipratropium [place] (Atrovent) 0.5 mg 1X ONCE NEB ; Start 03/15/18 at 12:00; Stop 03/15/18 at 12:00; Status DC Ipratropium [place] (Atrovent) 0.5 mg RTQID NEB ; Start 03/15/18 at 12:00 Metoprolol Tartrate (Lopressor Vial) 5 mg Q6HRS IVP ; Start 03/15/18 at 12:00 Carvedilol (Coreg) 12.5 mg BIDWMEALS PO ; Start 03/15/18 at 17:00 Active Scripts Active Reported Amlodipine Besylate 5 Mg Tablet 5 Mg PO DAILY Omeprazole 40 Mg Capsule. 1 Cap PO BID Vitals/I & O Vital Sign - Last 24 Hours 03/14/18 03/14/18 03/14/18 03/14/18 13:00 13:50 14:00 14:25 Pulse 68 68 Resp 18 18 B/P (MAP) 124/74 (91) 150/74 (99) Pulse Ox 95 95 95 96 O2 Delivery Ventilator Ventilator Ventilator Ventilator 03/14/18 03/14/18 03/14/18/9/18 14:59 15:00 15:49 16:00 Pulse 68 80 Resp 22 B/P (MAP) 186/90 148/70 (96) Pulse Ox 96 95 O2 Delivery Ventilator Ventilator Nasal Cannula O2 Flow Rate 3.0 03/14/18 03/14/18 03/14/18 03/14/18 16:00 17:00 18:00 19:00 Temp 98.7 98.7 Pulse 107 110 110 118 Resp 22 22 22 20 B/P (MAP) 152/70 (97) 158/70 (99) 140/77 (98) 149/83 (105) Pulse Ox 92 92 94 92 O2 Delivery Nasal Cannula Nasal Cannula Nasal Cannula Nasal Cannula O2 Flow Rate 3.0 3.0 3.0 3.0 03/14/18 03/14/18 03/14/18 03/14/18 19:50 20:01 20:03 21:16 Temp 100.0 100.0 Pulse 126 124 Resp 20 20 B/P (MAP) 154/82 (106) 127/77 (94) Pulse Ox 94 91 92 O2 Delivery Room Air Nasal Cannula Nasal Cannula Nasal Cannula O2 Flow Rate 3.0 4.0 3.0 03/14/18 03/14/18 03/14/18 03/15/18 22:00 23:00 23:43 00:09 Temp 99.9 99.9 Pulse 119 114 114 Resp 20 20 20 B/P (MAP) 156/96 (116) 141/76 (97) 153/86 (108) Pulse Ox 93 92 93 O2 Delivery Nasal Cannula Nasal Cannula Nasal Cannula Nasal Cannula O2 Flow Rate 3.0 3.0 4.0 3.0 03/15/18 03/15/18 03/15/18 03/15/18 01:00 02:00 03:08 03:39 Pulse 110 103 96 Resp 20 20 20 B/P (MAP) 167/87 (113) 131/72 (91) 155/78 (103) Pulse Ox 93 91 94 O2 Delivery Nasal Cannula Nasal Cannula Nasal Cannula Nasal Cannula O2 Flow Rate 3.0 3.0 3.0 2.0 03/15/18 03/15/18 03/15/18 03/15/18 04:01 05:00 05:26 06:00 Temp 98.0 98.0 Pulse 96 92 90 Resp 20 20 33 20 B/P (MAP) 141/81 (101) 156/81 (106) 165/85 (111) Pulse Ox 95 94 94 93 O2 Delivery Nasal Cannula Nasal Cannula Nasal Cannula Nasal Cannula O2 Flow Rate 2.0 1.0 2.0 1.0 03/15/18 03/15/18 03/15/18 03/15/18 07:00 08:00 08:00 08:27 Temp 99.2 99.2 Pulse 92 100 Resp 20 20 B/P (MAP) 170/91 (117) 172/87 (115) Pulse Ox 94 94 94 O2 Delivery Nasal Cannula Nasal Cannula Nasal Cannula Nasal Cannula O2 Flow Rate 1.0 2.0 1.0 1.0 03/15/18 03/15/18 03/15/18 03/15/18 08:30 09:00 09:46 10:00 Pulse 92 137 132 105 Resp 24 20 B/P (MAP) 176/91 187/92 (123) 177/92 161/80 (107) Pulse Ox 94 94 O2 Delivery Nasal Cannula Nasal Cannula O2 Flow Rate 1.0 2.0 03/15/18 03/15/18 03/15/18 03/15/18 11:00 11:37 12:00 12:00 Temp 98.7 98.7 Pulse 105 105 119 Resp 20 20 B/P (MAP) 158/77 (104) 185/90 164/89 (114) Pulse Ox 94 94 O2 Delivery Nasal Cannula Nasal Cannula Nasal Cannula O2 Flow Rate 2.0 2.0 2.0 Intake and Output 03/14/18 03/14/18 03/15/18 15:00 23:00 07:00 Intake Total 20 ml 1374 ml 1075 ml Output Total 5330 ml 1565 ml 250 ml Balance -5310 ml -191 ml 825 ml KELBY CEDEÑO MD Mar 15, 2018 12:36
[2018-03-15] MEDS: TPN PER PHARMACY MC PRN (12:39)
[2018-03-15] MEDS: METOPROLOL TARTRATE 5 MG/5 ML VIAL. IVP SCH ×2 (12:56→18:00)
[2018-03-15] MEDS: MICAFUNGIN 100 MG in IV DEXTROSE 5% 100ML 100 ML IV SCH (16:00)
--- NOTE | 2018-03-15 16:07 | RAD ---
CT Abdomen and Pelvis With Intravenous Contrast: History: Abdominal pain, diverticulitis. Comparison: CT abdomen pelvis March 11, 2018. Technique: After administration of oral and intravenous contrast, 75 mL Omnipaque-300, CT of the abdomen and pelvis was performed. Exposure: One or more of the following individualized dose reduction techniques were utilized for this examination: 1. Automated exposure control 2. Adjustment of the mA and/or kV according to patient size 3. Use of iterative reconstruction technique Findings: Images of the lower chest demonstrate small right pleural effusion. Right basilar consolidation atelectasis. Minimal left pleural effusion and atelectasis. Liver, spleen, pancreas, gallbladder, and bilateral adrenal glands unremarkable. Bilateral kidneys enhance symmetrically. Right ureter may be at least partially duplicated. No bowel obstruction is seen. Small fat-containing umbilical hernia is present. Urinary bladder demonstrates nonspecific perivesical stranding. There is gas is seen within the lumen of the urinary bladder. Appendix is without evidence of inflammation. Ongoing sigmoid diverticulitis is seen. In the left hemipelvis, there is a small peripherally enhancing fluid collection which is measured at 1.6 x 1.6 cm in maximum dimension (previously 2.4 x 2.0 cm). This is compatible with small abscess. There is an adjacent focus of gas seen just posterior to the mid sigmoid colon measuring 1.8 cm, compatible small contained perforation. No free pneumoperitoneum is seen under the diaphragm. There is also presence of small peripherally enhancing fluid collection in the pouch of Christopher measuring 3.5 x 2.3 cm in maximum axial dimension, likely developing abscess. Impression: 1. Ongoing sigmoid diverticulitis. One small abscess posterior to the proximal-mid sigmoid colon appears smaller, measuring 1.6 cm in maximum dimension (previously 2.6 cm). There is an adjacent focus of gas, compatible with contained perforation. 2. Pouch of Christopher demonstrates 3.5 x 2.3 cm peripherally enhancing fluid collection, favored represent developing abscess. 3. Stranding surrounding the urinary bladder. Correlate for cystitis. Small amount of gas is seen within the urinary bladder, probably iatrogenic given recent Galvan catheter. 4. Small right and minimal left pleural effusions. Associated atelectasis at the lung bases. Electronically signed by: Hector Ro MD (03/15/2018 4:04 PM) [place] [id number]
[2018-03-15] MEDS: CARVEDILOL 12.5 MG TABLET. PO SCH (16:24)
[2018-03-15] MEDS ORDERED: [UNRECOGNIZED DRUG - OTHER] IV SCH ×9 (22:00)
[2018-03-15] MEDS ORDERED: DEXTROSE 70% IV SCH ×9 (22:00)
[2018-03-15] MEDS ORDERED: TOTAL PARENTERAL NUTRITION IV SCH ×9 (22:00)
[2018-03-15] MEDS ORDERED: AMINO ACIDS IV SCH ×9 (22:00)
[2018-03-15 23:58] LABS: BILIRUBIN,URINE NEGATIVE (NEG); CLARITY,URINE CLEAR; COLOR,URINE YELLOW; NITRITE,URINE NEGATIVE (NEG); PH,URINE 6.5; PROTEIN,URINE 100 mg/dL (NEG-TRACE); UROBILINOGEN,URINE 0.2 mg/dL (0.2 mg/dL)
[2018-03-16 00:03] LABS: BACTERIA,URINE 0 /HPF (0-FEW); WBC,URINE OCC /HPF (0-4)
[2018-03-16 00:04] LABS: SQUAMOUS EPITHELIAL CELL,UR FEW /LPF
[2018-03-16 03:55] VITALS: BP 153/71
[2018-03-16] MEDS: PIPERACILLIN/TAZOBACTAM 3.375 GM in IV NORMAL SALINE 50ML 50 ML IV SCH ×3 (06:07→17:58)
[2018-03-16 06:31] LABS: BASO # 0.1 x10^3/uL (0.0-0.2); BASO % 1 % (0-3); EOS # 0.4 x10^3/uL (0.0-0.7); EOS % 4 % (0-3); HEMATOCRIT 34.9 % (39.0-53.0); HEMOGLOBIN 11.3 g/dL (13.0-17.5); LYMPH # 1.6 x10^3/uL (1.0-4.8); LYMPH % 14 % (24-48); MEAN CORPUSCULAR HEMOGLOBIN 29 pg (25-35); MEAN CORPUSCULAR HGB CONC 33 g/dL (31-37); MEAN CORPUSCULAR VOLUME 90 fL (79-100); MONO % 9 % (0-9); NEUT # 8.7 x10^3uL (1.8-7.7); NEUT % 73 % (31-73); PLATELET COUNT 503 x10^3/uL (140-400); RED BLOOD COUNT 3.88 x10^6/uL (4.30-5.70); RED CELL DISTRIBUTION WIDTH 13.7 % (11.5-14.5); WHITE BLOOD COUNT 11.9 x10^3/uL (4.0-11.0)
[2018-03-16 06:40] LABS: PHOSPHORUS 4.2 mg/dL (2.6-4.7)
[2018-03-16 06:41] LABS: ALBUMIN 2.5 g/dL (3.4-5.0); ALBUMIN/GLOBULIN RATIO 0.5 (1.0-1.7); CALCIUM 9.5 mg/dL (8.5-10.1); CREATININE 0.9 mg/dL (0.7-1.3); GFR 95.5; TOTAL BILIRUBIN 0.3 mg/dL (0.2-1.0)
[2018-03-16 07:00] VITALS: BP 154/82
--- NOTE | 2018-03-16 07:34 | PDOC ---
PULMONARY PROGRESS NOTES Subjective extubated 03/14, on 02, sob better, has occ cough, has snoring, eds, psg cancelled 2/2 bronchitis increase HR with Nebs Vitals Vital Signs Date Time Temp Pulse Resp B/P (MAP) Pulse Ox O2 Delivery O2 Flow Rate FiO2 03/16/18 03:55 97.8 97 28 153/71 (98) 92 Nasal Cannula 2.0 97.8 General: Alert, No acute distress Lungs: Clear Cardiovascular: S1, S2 Abdomen: Soft Neuro Exam: Alert Extremities: Other (EDEMA) Skin: Warm Labs Laboratory Tests Test 03/14/18 08:00 03/14/18 11:21 03/14/18 14:19 03/14/18 16:45 O2 Saturation 94 % (92-99) 95 % (92-99) Arterial Blood pH 7.41 (7.35-7.45) 7.42 (7.35-7.45) Arterial Blood pCO2 at Patient Temp 32 mmHg (35-46) 42 mmHg (35-46) Arterial Blood pO2 at Patient Temp 70 mmHg (85-108) 76 mmHg (85-108) Arterial Blood HCO3 20 mmol/L (21-28) 26 mmol/L (21-28) Arterial Blood Base Excess -4 mmol/L (-3-3) 2 mmol/L (-3-3) FiO2 40 40 Glucose (Fingerstick) 159 mg/dL (70-99) Oxyhemoglobin 94.1 % Methemoglobin 0.4 % (0.0-1.9) Carbon Monoxide, Quantitative 0.5 % (0.0-1.9) Potassium Level 3.6 mmol/L (3.5-5.1) Test 03/14/18 17:05 03/14/18 19:15 03/15/18 04:40 03/15/18 08:00 Glucose (Fingerstick) 130 mg/dL (70-99) 148 mg/dL (70-99) White Blood Count 11.1 x10^3/uL (4.0-11.0) Red Blood Count 3.98 x10^6/uL (4.30-5.70) Hemoglobin 12.0 g/dL (13.0-17.5) Hematocrit 35.8 % (39.0-53.0) Mean Corpuscular Volume 90 fL (79-100) Mean Corpuscular Hemoglobin 30 pg (25-35) Mean Corpuscular Hemoglobin Concent 34 g/dL (31-37) Red Cell Distribution Width 13.7 % (11.5-14.5) Platelet Count 526 x10^3/uL (140-400) Neutrophils (%) (Auto) 72 % (31-73) Lymphocytes (%) (Auto) 16 % (24-48) Monocytes (%) (Auto) 10 % (0-9) Eosinophils (%) (Auto) 2 % (0-3) Basophils (%) (Auto) 1 % (0-3) Neutrophils # (Auto) 7.9 x10^3uL (1.8-7.7) Lymphocytes # (Auto) 1.7 x10^3/uL (1.0-4.8) Monocytes # (Auto) 1.1 x10^3/uL (0.0-1.1) Eosinophils # (Auto) 0.2 x10^3/uL (0.0-0.7) Basophils # (Auto) 0.1 x10^3/uL (0.0-0.2) Sodium Level 144 mmol/L (136-145) Potassium Level 3.6 mmol/L (3.5-5.1) Chloride Level 106 mmol/L (98-107) Carbon Dioxide Level 28 mmol/L (21-32) Anion Gap 10 (6-14) Blood Urea Nitrogen 14 mg/dL (8-26) Creatinine 1.0 mg/dL (0.7-1.3) Estimated GFR (Cockcroft-Gault) 84.5 Glucose Level 136 mg/dL (70-99) Calcium Level 9.2 mg/dL (8.5-10.1) Phosphorus Level 4.7 mg/dL (2.6-4.7) Magnesium Level 2.0 mg/dL (1.8-2.4) Procalcitonin 0.53 ng/mL (0.00-0.10) O2 Saturation 94 % (92-99) Arterial Blood pH 7.44 (7.35-7.45) Arterial Blood pCO2 at Patient Temp 37 mmHg (35-46) Arterial Blood pO2 at Patient Temp 76 mmHg (85-108) Arterial Blood HCO3 25 mmol/L (21-28) Arterial Blood Base Excess 1 mmol/L (-3-3) Oxyhemoglobin 93.6 % Methemoglobin 0.3 % (0.0-1.9) Carbon Monoxide, Quantitative 0.4 % (0.0-1.9) FiO2 24 Test 03/15/18 11:41 03/15/18 17:48 03/15/18 20:57 03/15/18 23:40 Glucose (Fingerstick) 188 mg/dL (70-99) 162 mg/dL (70-99) 136 mg/dL (70-99) Urine Collection Type Unknown Urine Color Yellow Urine Clarity Clear Urine pH 6.5 Urine Specific [place] >=1.030 Urine Protein 100 mg/dL (NEG-TRACE) Urine Glucose (UA) Negative mg/dL (NEG) Urine Ketones (Stick) Negative mg/dL (NEG) Urine Blood Negative (NEG) Urine Nitrite Negative (NEG) Urine Bilirubin Negative (NEG) Urine Urobilinogen Dipstick 0.2 mg/dL (0.2 mg/dL) Urine Leukocyte Esterase Negative (NEG) Urine RBC 11-20 /HPF (0-2) Urine WBC Occ /HPF (0-4) Urine Squamous Epithelial Cells Few /LPF Urine Bacteria 0 /HPF (0-FEW) Urine Mucus Slight /LPF Test 03/16/18 06:15 White Blood Count 11.9 x10^3/uL (4.0-11.0) Red Blood Count 3.88 x10^6/uL (4.30-5.70) Hemoglobin 11.3 g/dL (13.0-17.5) Hematocrit 34.9 % (39.0-53.0) Mean Corpuscular Volume 90 fL (79-100) Mean Corpuscular Hemoglobin 29 pg (25-35) Mean Corpuscular Hemoglobin Concent 33 g/dL (31-37) Red Cell Distribution Width 13.7 % (11.5-14.5) Platelet Count 503 x10^3/uL (140-400) Neutrophils (%) (Auto) 73 % (31-73) Lymphocytes (%) (Auto) 14 % (24-48) Monocytes (%) (Auto) 9 % (0-9) Eosinophils (%) (Auto) 4 % (0-3) Basophils (%) (Auto) 1 % (0-3) Neutrophils # (Auto) 8.7 x10^3uL (1.8-7.7) Lymphocytes # (Auto) 1.6 x10^3/uL (1.0-4.8) Monocytes # (Auto) 1.0 x10^3/uL (0.0-1.1) Eosinophils # (Auto) 0.4 x10^3/uL (0.0-0.7) Basophils # (Auto) 0.1 x10^3/uL (0.0-0.2) Sodium Level 139 mmol/L (136-145) Potassium Level 4.0 mmol/L (3.5-5.1) Chloride Level 104 mmol/L (98-107) Carbon Dioxide Level 28 mmol/L (21-32) Anion Gap 7 (6-14) Blood Urea Nitrogen 17 mg/dL (8-26) Creatinine 0.9 mg/dL (0.7-1.3) Estimated GFR (Cockcroft-Gault) 95.5 BUN/Creatinine Ratio 19 (6-20) Glucose Level 171 mg/dL (70-99) Calcium Level 9.5 mg/dL (8.5-10.1) Phosphorus Level 4.2 mg/dL (2.6-4.7) Magnesium Level 2.0 mg/dL (1.8-2.4) Total Bilirubin 0.3 mg/dL (0.2-1.0) Aspartate Amino Transf (AST/SGOT) 123 U/L (15-37) Alanine Aminotransferase (ALT/SGPT) 118 U/L (16-63) Alkaline Phosphatase 67 U/L (46-116) Total Protein 8.0 g/dL (6.4-8.2) Albumin 2.5 g/dL (3.4-5.0) Albumin/Globulin Ratio 0.5 (1.0-1.7) Laboratory Tests Test 03/15/18 08:00 03/15/18 11:41 03/15/18 17:48 03/15/18 20:57 O2 Saturation 94 % (92-99) Arterial Blood pH 7.44 (7.35-7.45) Arterial Blood pCO2 at Patient Temp 37 mmHg (35-46) Arterial Blood pO2 at Patient Temp 76 mmHg (85-108) Arterial Blood HCO3 25 mmol/L (21-28) Arterial Blood Base Excess 1 mmol/L (-3-3) Oxyhemoglobin 93.6 % Methemoglobin 0.3 % (0.0-1.9) Carbon Monoxide, Quantitative 0.4 % (0.0-1.9) FiO2 24 Glucose (Fingerstick) 188 mg/dL (70-99) 162 mg/dL (70-99) 136 mg/dL (70-99) Test 03/15/18 23:40 03/16/18 06:15 Urine Collection Type Unknown Urine Color Yellow Urine Clarity Clear Urine pH 6.5 Urine Specific [place] >=1.030 Urine Protein 100 mg/dL (NEG-TRACE) Urine Glucose (UA) Negative mg/dL (NEG) Urine Ketones (Stick) Negative mg/dL (NEG) Urine Blood Negative (NEG) Urine Nitrite Negative (NEG) Urine Bilirubin Negative (NEG) Urine Urobilinogen Dipstick 0.2 mg/dL (0.2 mg/dL) Urine Leukocyte Esterase Negative (NEG) Urine RBC 11-20 /HPF (0-2) Urine WBC Occ /HPF (0-4) Urine Squamous Epithelial Cells Few /LPF Urine Bacteria 0 /HPF (0-FEW) Urine Mucus Slight /LPF White Blood Count 11.9 x10^3/uL (4.0-11.0) Red Blood Count 3.88 x10^6/uL (4.30-5.70) Hemoglobin 11.3 g/dL (13.0-17.5) Hematocrit 34.9 % (39.0-53.0) Mean Corpuscular Volume 90 fL (79-100) Mean Corpuscular Hemoglobin 29 pg (25-35) Mean Corpuscular Hemoglobin Concent 33 g/dL (31-37) Red Cell Distribution Width 13.7 % (11.5-14.5) Platelet Count 503 x10^3/uL (140-400) Neutrophils (%) (Auto) 73 % (31-73) Lymphocytes (%) (Auto) 14 % (24-48) Monocytes (%) (Auto) 9 % (0-9) Eosinophils (%) (Auto) 4 % (0-3) Basophils (%) (Auto) 1 % (0-3) Neutrophils # (Auto) 8.7 x10^3uL (1.8-7.7) Lymphocytes # (Auto) 1.6 x10^3/uL (1.0-4.8) Monocytes # (Auto) 1.0 x10^3/uL (0.0-1.1) Eosinophils # (Auto) 0.4 x10^3/uL (0.0-0.7) Basophils # (Auto) 0.1 x10^3/uL (0.0-0.2) Sodium Level 139 mmol/L (136-145) Potassium Level 4.0 mmol/L (3.5-5.1) Chloride Level 104 mmol/L (98-107) Carbon Dioxide Level 28 mmol/L (21-32) Anion Gap 7 (6-14) Blood Urea Nitrogen 17 mg/dL (8-26) Creatinine 0.9 mg/dL (0.7-1.3) Estimated GFR (Cockcroft-Gault) 95.5 BUN/Creatinine Ratio 19 (6-20) Glucose Level 171 mg/dL (70-99) Calcium Level 9.5 mg/dL (8.5-10.1) Phosphorus Level 4.2 mg/dL (2.6-4.7) Magnesium Level 2.0 mg/dL (1.8-2.4) Total Bilirubin 0.3 mg/dL (0.2-1.0) Aspartate Amino Transf (AST/SGOT) 123 U/L (15-37) Alanine Aminotransferase (ALT/SGPT) 118 U/L (16-63) Alkaline Phosphatase 67 U/L (46-116) Total Protein 8.0 g/dL (6.4-8.2) Albumin 2.5 g/dL (3.4-5.0) Albumin/Globulin Ratio 0.5 (1.0-1.7) Medications Active Scripts Medications Dose Route/Sig Max Daily Dose Days Date Category Amlodipine Besylate 5 Mg Tablet 5 Mg PO DAILY 03/14/18 Reported Omeprazole 40 Mg Capsule.dr 1 Cap PO BID 03/14/18 Reported Comments CTA CHEST REVIEWED 1. Life support devices in appropriate position. 2. No large central pulmonary embolus. Lobar, segmental, subsegmental pulmonary arteries cannot be evaluated due to limited contrast opacification. 3. Moderate consolidations with air bronchograms in the bilateral lower lobes. Considerations include aspiration, pneumonia, or atelectasis. 4. Persistent diverticulitis of the sigmoid colon. There is a small incompletely formed probable peridiverticular abscess. 5. Fatty infiltration of the liver. Electronically signed by: Akbar Naqvi MD (03/11/2018 11:21 AM) [id number] CXR 03/15 reviewed MILD BILATERAL INFIL Impression . IMPRESSION: 1. Acute respiratory failure, status post code blue. Etiology likely ALI/EARLY ARDS due to diverticulitis . Extubated 03/14 2. Status post code blue patient with spontaneous return of circulation after one defibrillation and 2 minutes of chest compressions. 3. Septic shock.resolved 4. Diverticulitis leading to septic shock. ? abscess/ suspected perf. diverticulitis, clinically improving. Repeat ct abdomen per surgery 5. Metabolic acidosis secondary to code blue, increased work of breathing and renal insufficiency. resolved 6. Morbid obesity. 7. Leukocytosis. 8. Obstructive sleep apnea. 9. Possible aspiration pneumonia. 10. No central PE by CTA, Plan . psg out pt, kranthi the importance of diagnosis and tx discussed, 02 titration increase activity CONSULT PT/ SPEECH ORAL CONTRAST FOR CT ABDOMEN ONCE CLEARED BY SPEECH FOR PO LOVENOX FOR DVT PROPHYLAXIS NO SHUNT ON ECHO NEG VENOUS DOPPLER ANTIBX PER ID FOLLOW SURGERY REC TPN GI PROPH CHANGE NEBS TO ATROVENT ONLY, avoid alb, tachycardia D/W RN/PT VERNELL BILLINGSLEY MD Mar 16, 2018 07:34
[2018-03-16] MEDS: IPRATROPIUM BROMIDE 0.5 MG/2.5 ML NEBU. NEB SCH ×4 (08:11→20:00)
--- NOTE | 2018-03-16 08:31 | PDOC ---
Infectious Disease Note Subjective Subjective Doing well Had some discomfort with patterson and it has been removed. Has passed urine with a little sting but better then when patterson was in place No nausea/V/SOA/Rash. + BM and pain controlled Vital Sign Vital Signs Vital Signs Date Time Temp Pulse Resp B/P (MAP) Pulse Ox O2 Delivery O2 Flow Rate FiO2 03/16/18 08:11 92 Nasal Cannula 2.0 03/16/18 03:55 97.8 97 28 153/71 (98) 97.8 Physical Exam PHYSICAL EXAM GENERAL: NAD, alert, looks really well. in shower ABDOMEN: Obese SKIN: warm without rash NEURO: - alert/appropriate/pleasant Labs Lab Laboratory Tests Test 03/15/18 11:41 03/15/18 17:48 03/15/18 20:57 03/15/18 23:40 Glucose (Fingerstick) 188 mg/dL (70-99) 162 mg/dL (70-99) 136 mg/dL (70-99) Urine Collection Type Unknown Urine Color Yellow Urine Clarity Clear Urine pH 6.5 Urine Specific [place] >=1.030 Urine Protein 100 mg/dL (NEG-TRACE) Urine Glucose (UA) Negative mg/dL (NEG) Urine Ketones (Stick) Negative mg/dL (NEG) Urine Blood Negative (NEG) Urine Nitrite Negative (NEG) Urine Bilirubin Negative (NEG) Urine Urobilinogen Dipstick 0.2 mg/dL (0.2 mg/dL) Urine Leukocyte Esterase Negative (NEG) Urine RBC 11-20 /HPF (0-2) Urine WBC Occ /HPF (0-4) Urine Squamous Epithelial Cells Few /LPF Urine Bacteria 0 /HPF (0-FEW) Urine Mucus Slight /LPF Test 03/16/18 06:15 White Blood Count 11.9 x10^3/uL (4.0-11.0) Red Blood Count 3.88 x10^6/uL (4.30-5.70) Hemoglobin 11.3 g/dL (13.0-17.5) Hematocrit 34.9 % (39.0-53.0) Mean Corpuscular Volume 90 fL (79-100) Mean Corpuscular Hemoglobin 29 pg (25-35) Mean Corpuscular Hemoglobin Concent 33 g/dL (31-37) Red Cell Distribution Width 13.7 % (11.5-14.5) Platelet Count 503 x10^3/uL (140-400) Neutrophils (%) (Auto) 73 % (31-73) Lymphocytes (%) (Auto) 14 % (24-48) Monocytes (%) (Auto) 9 % (0-9) Eosinophils (%) (Auto) 4 % (0-3) Basophils (%) (Auto) 1 % (0-3) Neutrophils # (Auto) 8.7 x10^3uL (1.8-7.7) Lymphocytes # (Auto) 1.6 x10^3/uL (1.0-4.8) Monocytes # (Auto) 1.0 x10^3/uL (0.0-1.1) Eosinophils # (Auto) 0.4 x10^3/uL (0.0-0.7) Basophils # (Auto) 0.1 x10^3/uL (0.0-0.2) Sodium Level 139 mmol/L (136-145) Potassium Level 4.0 mmol/L (3.5-5.1) Chloride Level 104 mmol/L (98-107) Carbon Dioxide Level 28 mmol/L (21-32) Anion Gap 7 (6-14) Blood Urea Nitrogen 17 mg/dL (8-26) Creatinine 0.9 mg/dL (0.7-1.3) Estimated GFR (Cockcroft-Gault) 95.5 BUN/Creatinine Ratio 19 (6-20) Glucose Level 171 mg/dL (70-99) Calcium Level 9.5 mg/dL (8.5-10.1) Phosphorus Level 4.2 mg/dL (2.6-4.7) Magnesium Level 2.0 mg/dL (1.8-2.4) Total Bilirubin 0.3 mg/dL (0.2-1.0) Aspartate Amino Transf (AST/SGOT) 123 U/L (15-37) Alanine Aminotransferase (ALT/SGPT) 118 U/L (16-63) Alkaline Phosphatase 67 U/L (46-116) Total Protein 8.0 g/dL (6.4-8.2) Albumin 2.5 g/dL (3.4-5.0) Albumin/Globulin Ratio 0.5 (1.0-1.7) Micro CT 03/15 Impression: 1. Ongoing sigmoid diverticulitis. One small abscess posterior to the proximal-mid sigmoid colon appears smaller, measuring 1.6 cm in maximum dimension (previously 2.6 cm). There is an adjacent focus of gas, compatible with contained perforation. 2. Pouch of Christopher demonstrates 3.5 x 2.3 cm peripherally enhancing fluid collection, favored represent developing abscess. 3. Stranding surrounding the urinary bladder. Correlate for cystitis. Small amount of gas is seen within the urinary bladder, probably iatrogenic given recent Patterson catheter. 4. Small right and minimal left pleural effusions. Associated atelectasis at the lung bases. Microbiology 03/09/18 Blood Culture - Preliminary, Resulted NO GROWTH AFTER [address] 03/11 IMPRESSION: 1. Life support devices in appropriate position. 2. No large central pulmonary embolus. Lobar, segmental, subsegmental pulmonary arteries cannot be evaluated due to limited contrast opacification. 3. Moderate consolidations with air bronchograms in the bilateral lower lobes. Considerations include aspiration, pneumonia, or atelectasis. 4. Persistent diverticulitis of the sigmoid colon. There is a small incompletely formed probable peridiverticular abscess. 5. Fatty infiltration of the liver. Objective Assessment Fever - better s/p code blue, 03/09 Sepsis w/ hypotension requiring vasopressor support previously but now off. - BC from 03/07 NGTD. Fever curve improving Leukocytosis - stable Acute diverticulitis with microperforation -gen surgery following, on bowel rest - developing abscess on CT Allergy Cipro - rash RONNY Acute respiratory failure ? ARDS developing -improving per Dr. Galo Substance abuse. urine tox + cocaine and marijuana 03/07 & 03/09 PUD / GERD Etoh dependence Morbid obesity, BMI 41 [address] [facility] & EGD- ulcers Rx on omeprazole per Plan Plan of Care Clinically he is much improved Continue Zosyn and micafungin Await Gen surg eval of CT Cardiac cath 03/18 Monitor labs/VSS D/w D/w RN LAURA HARMAN MD Mar 16, 2018 08:31
[2018-03-16] MEDS: CARVEDILOL 12.5 MG TABLET. PO SCH ×2 (09:03→16:14)
[2018-03-16] MEDS: PANTOPRAZOLE IV PUSH 40 MG VIAL. IVP SCH ×2 (09:03→20:26)
[2018-03-16] MEDS: ENOXAPARIN 40 MG/0.4 ML SYRINGE. SQ SCH ×2 (09:04→20:26)
[2018-03-16] MEDS: INSULIN LISPRO 300 UNITS/3 ML INSULN.PEN. SQ SCH ×3 (09:13→17:00)
[2018-03-16 11:00] VITALS: BP 133/76
[2018-03-16] MEDS ORDERED: PHENAZOPYRIDINE 200 MG TABLET. PO PRN (11:15)
--- NOTE | 2018-03-16 11:19 | PDOC ---
PROGRESS NOTES Subjective Subjective feeling well overall, denies abdominal pain, some dysuria Objective Objective Vital Signs Date Time Temp Pulse Resp B/P (MAP) Pulse Ox O2 Delivery O2 Flow Rate FiO2 03/16/18 09:03 97 154/82 03/16/18 08:11 92 Nasal Cannula 2.0 03/16/18 07:00 98.2 18 98.2 Intake and Output 03/16/18 07:00 Intake Total 360 ml Output Total 1100 ml Balance -740 ml Intake Oral 360 ml Output Urine Total 1100 ml # Bowel Movements 1 Physical Exam Abdomen: Soft, No tenderness Extremities: No clubbing, No cyanosis General: Alert, Oriented X3, Cooperative Neuro: Normal speech Psych/Mental Status: Mental status NL Assessment Assessment Problems Medical Problems: (1) Diverticulitis of colon with perforation Status: Acute CT scan Impression: 1. Ongoing sigmoid diverticulitis. One small abscess posterior to the proximal-mid sigmoid colon appears smaller, measuring 1.6 cm in maximum dimension (previously 2.6 cm). There is an adjacent focus of gas, compatible with contained perforation. 2. Pouch of Christopher demonstrates 3.5 x 2.3 cm peripherally enhancing fluid collection, favored represent developing abscess. 3. Stranding surrounding the urinary bladder. Correlate for cystitis. Small amount of gas is seen within the urinary bladder, probably iatrogenic given recent Galvan catheter. 4. Small right and minimal left pleural effusions. Associated atelectasis at the lung bases. Plan Plan of Care Diverticulitis; improving with no pain, CT results noted, original fluid collection decreasing but new collection in pelvis, ?reactive vs developing abscess, WBC mildly elevated; continue abx, ok to drink water, will review with IR Sunday; planning cath Sunday as well Comment Review of Relevant I have reviewed the following items kalin (where applicable) has been applied. Labs Laboratory Tests Test 03/14/18 11:21 03/14/18 14:19 03/14/18 16:45 03/14/18 17:05 Glucose (Fingerstick) 159 mg/dL (70-99) 130 mg/dL (70-99) O2 Saturation 95 % (92-99) Arterial Blood pH 7.42 (7.35-7.45) Arterial Blood pCO2 at Patient Temp 42 mmHg (35-46) Arterial Blood pO2 at Patient Temp 76 mmHg (85-108) Arterial Blood HCO3 26 mmol/L (21-28) Arterial Blood Base Excess 2 mmol/L (-3-3) Oxyhemoglobin 94.1 % Methemoglobin 0.4 % (0.0-1.9) Carbon Monoxide, Quantitative 0.5 % (0.0-1.9) FiO2 40 Potassium Level 3.6 mmol/L (3.5-5.1) Test 03/14/18 19:15 03/15/18 04:40 03/15/18 08:00 03/15/18 11:41 Glucose (Fingerstick) 148 mg/dL (70-99) 188 mg/dL (70-99) White Blood Count 11.1 x10^3/uL (4.0-11.0) Red Blood Count 3.98 x10^6/uL (4.30-5.70) Hemoglobin 12.0 g/dL (13.0-17.5) Hematocrit 35.8 % (39.0-53.0) Mean Corpuscular Volume 90 fL (79-100) Mean Corpuscular Hemoglobin 30 pg (25-35) Mean Corpuscular Hemoglobin Concent 34 g/dL (31-37) Red Cell Distribution Width 13.7 % (11.5-14.5) Platelet Count 526 x10^3/uL (140-400) Neutrophils (%) (Auto) 72 % (31-73) Lymphocytes (%) (Auto) 16 % (24-48) Monocytes (%) (Auto) 10 % (0-9) Eosinophils (%) (Auto) 2 % (0-3) Basophils (%) (Auto) 1 % (0-3) Neutrophils # (Auto) 7.9 x10^3uL (1.8-7.7) Lymphocytes # (Auto) 1.7 x10^3/uL (1.0-4.8) Monocytes # (Auto) 1.1 x10^3/uL (0.0-1.1) Eosinophils # (Auto) 0.2 x10^3/uL (0.0-0.7) Basophils # (Auto) 0.1 x10^3/uL (0.0-0.2) Sodium Level 144 mmol/L (136-145) Potassium Level 3.6 mmol/L (3.5-5.1) Chloride Level 106 mmol/L (98-107) Carbon Dioxide Level 28 mmol/L (21-32) Anion Gap 10 (6-14) Blood Urea Nitrogen 14 mg/dL (8-26) Creatinine 1.0 mg/dL (0.7-1.3) Estimated GFR (Cockcroft-Gault) 84.5 Glucose Level 136 mg/dL (70-99) Calcium Level 9.2 mg/dL (8.5-10.1) Phosphorus Level 4.7 mg/dL (2.6-4.7) Magnesium Level 2.0 mg/dL (1.8-2.4) Procalcitonin 0.53 ng/mL (0.00-0.10) O2 Saturation 94 % (92-99) Arterial Blood pH 7.44 (7.35-7.45) Arterial Blood pCO2 at Patient Temp 37 mmHg (35-46) Arterial Blood pO2 at Patient Temp 76 mmHg (85-108) Arterial Blood HCO3 25 mmol/L (21-28) Arterial Blood Base Excess 1 mmol/L (-3-3) Oxyhemoglobin 93.6 % Methemoglobin 0.3 % (0.0-1.9) Carbon Monoxide, Quantitative 0.4 % (0.0-1.9) FiO2 24 Test 03/15/18 17:48 03/15/18 20:57 03/15/18 23:40 03/16/18 06:15 Glucose (Fingerstick) 162 mg/dL (70-99) 136 mg/dL (70-99) Urine Collection Type Unknown Urine Color Yellow Urine Clarity Clear Urine pH 6.5 Urine Specific [place] >=1.030 Urine Protein 100 mg/dL (NEG-TRACE) Urine Glucose (UA) Negative mg/dL (NEG) Urine Ketones (Stick) Negative mg/dL (NEG) Urine Blood Negative (NEG) Urine Nitrite Negative (NEG) Urine Bilirubin Negative (NEG) Urine Urobilinogen Dipstick 0.2 mg/dL (0.2 mg/dL) Urine Leukocyte Esterase Negative (NEG) Urine RBC 11-20 /HPF (0-2) Urine WBC Occ /HPF (0-4) Urine Squamous Epithelial Cells Few /LPF Urine Bacteria 0 /HPF (0-FEW) Urine Mucus Slight /LPF White Blood Count 11.9 x10^3/uL (4.0-11.0) Red Blood Count 3.88 x10^6/uL (4.30-5.70) Hemoglobin 11.3 g/dL (13.0-17.5) Hematocrit 34.9 % (39.0-53.0) Mean Corpuscular Volume 90 fL (79-100) Mean Corpuscular Hemoglobin 29 pg (25-35) Mean Corpuscular Hemoglobin Concent 33 g/dL (31-37) Red Cell Distribution Width 13.7 % (11.5-14.5) Platelet Count 503 x10^3/uL (140-400) Neutrophils (%) (Auto) 73 % (31-73) Lymphocytes (%) (Auto) 14 % (24-48) Monocytes (%) (Auto) 9 % (0-9) Eosinophils (%) (Auto) 4 % (0-3) Basophils (%) (Auto) 1 % (0-3) Neutrophils # (Auto) 8.7 x10^3uL (1.8-7.7) Lymphocytes # (Auto) 1.6 x10^3/uL (1.0-4.8) Monocytes # (Auto) 1.0 x10^3/uL (0.0-1.1) Eosinophils # (Auto) 0.4 x10^3/uL (0.0-0.7) Basophils # (Auto) 0.1 x10^3/uL (0.0-0.2) Sodium Level 139 mmol/L (136-145) Potassium Level 4.0 mmol/L (3.5-5.1) Chloride Level 104 mmol/L (98-107) Carbon Dioxide Level 28 mmol/L (21-32) Anion Gap 7 (6-14) Blood Urea Nitrogen 17 mg/dL (8-26) Creatinine 0.9 mg/dL (0.7-1.3) Estimated GFR (Cockcroft-Gault) 95.5 BUN/Creatinine Ratio 19 (6-20) Glucose Level 171 mg/dL (70-99) Calcium Level 9.5 mg/dL (8.5-10.1) Phosphorus Level 4.2 mg/dL (2.6-4.7) Magnesium Level 2.0 mg/dL (1.8-2.4) Total Bilirubin 0.3 mg/dL (0.2-1.0) Aspartate Amino Transf (AST/SGOT) 123 U/L (15-37) Alanine Aminotransferase (ALT/SGPT) 118 U/L (16-63) Alkaline Phosphatase 67 U/L (46-116) Total Protein 8.0 g/dL (6.4-8.2) Albumin 2.5 g/dL (3.4-5.0) Albumin/Globulin Ratio 0.5 (1.0-1.7) Test 03/16/18 07:55 Glucose (Fingerstick) 158 mg/dL (70-99) Laboratory Tests Test 03/15/18 11:41 03/15/18 17:48 03/15/18 20:57 03/15/18 23:40 Glucose (Fingerstick) 188 mg/dL (70-99) 162 mg/dL (70-99) 136 mg/dL (70-99) Urine Collection Type Unknown Urine Color Yellow Urine Clarity Clear Urine pH 6.5 Urine Specific [place] >=1.030 Urine Protein 100 mg/dL (NEG-TRACE) Urine Glucose (UA) Negative mg/dL (NEG) Urine Ketones (Stick) Negative mg/dL (NEG) Urine Blood Negative (NEG) Urine Nitrite Negative (NEG) Urine Bilirubin Negative (NEG) Urine Urobilinogen Dipstick 0.2 mg/dL (0.2 mg/dL) Urine Leukocyte Esterase Negative (NEG) Urine RBC 11-20 /HPF (0-2) Urine WBC Occ /HPF (0-4) Urine Squamous Epithelial Cells Few /LPF Urine Bacteria 0 /HPF (0-FEW) Urine Mucus Slight /LPF Test 03/16/18 06:15 03/16/18 07:55 White Blood Count 11.9 x10^3/uL (4.0-11.0) Red Blood Count 3.88 x10^6/uL (4.30-5.70) Hemoglobin 11.3 g/dL (13.0-17.5) Hematocrit 34.9 % (39.0-53.0) Mean Corpuscular Volume 90 fL (79-100) Mean Corpuscular Hemoglobin 29 pg (25-35) Mean Corpuscular Hemoglobin Concent 33 g/dL (31-37) Red Cell Distribution Width 13.7 % (11.5-14.5) Platelet Count 503 x10^3/uL (140-400) Neutrophils (%) (Auto) 73 % (31-73) Lymphocytes (%) (Auto) 14 % (24-48) Monocytes (%) (Auto) 9 % (0-9) Eosinophils (%) (Auto) 4 % (0-3) Basophils (%) (Auto) 1 % (0-3) Neutrophils # (Auto) 8.7 x10^3uL (1.8-7.7) Lymphocytes # (Auto) 1.6 x10^3/uL (1.0-4.8) Monocytes # (Auto) 1.0 x10^3/uL (0.0-1.1) Eosinophils # (Auto) 0.4 x10^3/uL (0.0-0.7) Basophils # (Auto) 0.1 x10^3/uL (0.0-0.2) Sodium Level 139 mmol/L (136-145) Potassium Level 4.0 mmol/L (3.5-5.1) Chloride Level 104 mmol/L (98-107) Carbon Dioxide Level 28 mmol/L (21-32) Anion Gap 7 (6-14) Blood Urea Nitrogen 17 mg/dL (8-26) Creatinine 0.9 mg/dL (0.7-1.3) Estimated GFR (Cockcroft-Gault) 95.5 BUN/Creatinine Ratio 19 (6-20) Glucose Level 171 mg/dL (70-99) Calcium Level 9.5 mg/dL (8.5-10.1) Phosphorus Level 4.2 mg/dL (2.6-4.7) Magnesium Level 2.0 mg/dL (1.8-2.4) Total Bilirubin 0.3 mg/dL (0.2-1.0) Aspartate Amino Transf (AST/SGOT) 123 U/L (15-37) Alanine Aminotransferase (ALT/SGPT) 118 U/L (16-63) Alkaline Phosphatase 67 U/L (46-116) Total Protein 8.0 g/dL (6.4-8.2) Albumin 2.5 g/dL (3.4-5.0) Albumin/Globulin Ratio 0.5 (1.0-1.7) Glucose (Fingerstick) 158 mg/dL (70-99) Microbiology 03/09/18 Blood Culture - Final, Complete NO GROWTH AFTER 5 DAYS Medications Current Medications Sodium Chloride (Normal Saline Flush) 3 ml QSHIFT PRN IV AFTER MEDS AND BLOOD DRAWS; Start 03/07/18 at 11:00 Sodium Chloride 1,000 ml @ 1,000 mls/hr Q1H IV Last administered on 03/07/18at 11:32; Start 03/07/18 at 11:00; Stop 03/07/18 at 11:59; Status DC Iohexol (Omnipaque 300 Mg/ml) 75 ml 1X ONCE IV Last administered on 03/07/18at 12:46; Start 03/07/18 at 11:15; Stop 03/07/18 at 11:16; Status DC Info (CONTRAST GIVEN -- Rx MONITORING) 1 each PRN DAILY PRN MC SEE COMMENTS; Start 03/07/18 at 11:15; Stop 03/09/18 at 11:14; Status DC Sodium Chloride 1,000 ml @ 1,000 mls/hr 1X ONCE IV Last administered on at 12:37; Start 03/07/18 at 12:00; Stop 03/07/18 at 12:59; Status DC Fentanyl Citrate (Fentanyl 2ml Vial) 50 mcg 1X ONCE IV Last administered on 03/07/18at 13:07; Start 03/07/18 at 13:00; Stop 03/07/18 at 13:01; Status DC Metronidazole 100 ml @ 100 mls/hr 1X ONCE IV ; Start 03/07/18 at 13:30; Stop at 14:29; Status DC Ciprofloxacin/ Dextrose 200 ml @ 200 mls/hr ONCE STAT IV Last administered on 03/07/18at 13:42; Start 03/07/18 at 13:12; Stop 03/07/18 at 14:11; Status DC Piperacillin Sod/ Tazobactam Sod 3.375 gm/Sodium Chloride 50 ml @ 100 mls/hr 1X ONCE IV Last administered on 03/07/18at 14:43; Start 03/07/18 at 14:30; Stop 03/07/18 at 14:59; Status DC Diphenhydramine HCl (Benadryl) 50 mg 1X ONCE IVP Last administered on at 14:33; Start 03/07/18 at 14:15; Stop 03/07/18 at 14:16; Status DC Fentanyl Citrate (Fentanyl 2ml Vial) 25 mcg 1X ONCE IV ; Start 03/07/18 at 14:15 ; Stop 03/07/18 at 14:16; Status Cancel Morphine Sulfate (Morphine Sulfate) 4 mg 1X ONCE IV Last administered on at 14:35; Start 03/07/18 at 14:30; Stop 03/07/18 at 14:31; Status DC Ondansetron HCl (Zofran) 4 mg PRN Q8HRS PRN IV NAUSEA/VOMITING; Start 03/07/18 at 14:30; Stop 03/08/18 at 14:29; Status DC Morphine Sulfate (Morphine Sulfate) 4 mg PRN Q2HR PRN IV PAIN Last administered on 03/08/18at 08:20; Start 03/07/18 at 14:30; Stop 03/08/18 at 14:29; Status DC Piperacillin Sod/ Tazobactam Sod 3.375 gm/Sodium Chloride 50 ml @ 100 mls/hr Q6HRS IV Last administered on 03/16/18at 06:07; Start 03/07/18 at 18:00 Metronidazole 100 ml @ 100 mls/hr Q8HRS IV Last administered on 03/09/18at 11:19 ; Start 03/07/18 at 22:00; Stop 03/09/18 at 15:10; Status DC Sodium Chloride 500 ml @ 500 mls/hr 1X ONCE IV Last administered on 03/07/18at 16:45; Start 03/07/18 at 16:45; Stop 03/07/18 at 17:44; Status DC Amino Acids/ Glycerin/ Electrolytes 1,000 ml @ 80 mls/hr [id number] IV Last administered on 03/11/18at 07:47; Start 03/07/18 at 16:45; Stop 03/11/18 at 20:21; Status DC Acetaminophen (Tylenol) 650 mg PRN Q6HRS PRN PO fever ; Start 03/07/18 at 18:00 Pantoprazole Sodium (PROTONIX VIAL for IV PUSH) 40 mg DAILYAC IVP Last administered on 03/14/18at 08:10; Start 03/08/18 at 07:45; Stop 03/14/18 at 17:45; Status DC Morphine Sulfate (Morphine Sulfate) 4 mg PRN Q2HR PRN IV MODRATE-SEVERE PAIN 2ND CHOICE Last administered on 03/15/18at 22:01; Start 03/08/18 at 14:45 Lorazepam (Ativan) 1 mg PRN Q4HRS PRN IV ANXIETY / AGITATION Last administered on 03/15/18at 15:14; Start 03/08/18 at 20:30 Ondansetron HCl (Zofran) 4 mg PRN Q6HRS PRN IV NAUSEA/VOMITING 1ST CHOICE Last administered on 03/14/18at 12:16; Start 03/09/18 at 02:00 Etomidate (Amidate) 20 mg STK-MED ONCE IV ; Start 03/09/18 at 06:55; Stop at 06:56; Status DC Norepinephrine Bitartrate 250 ml @ As Directed STK-MED ONCE IV ; Start 03/09/18 at 06:55; Stop 03/09/18 at 06:56; Status DC Midazolam HCl (Versed) 5 mg STK-MED ONCE .ROUTE ; Start 03/09/18 at 06:55; Stop 03/09/18 at 06:56; Status DC Fentanyl Citrate (Fentanyl 2ml Vial) 100 mcg STK-MED ONCE .ROUTE ; Start at 06:55; Stop 03/09/18 at 06:56; Status DC Succinylcholine Chloride (Anectine) 200 mg STK-MED ONCE .ROUTE ; Start 03/09/18 at 06:56; Stop 03/09/18 at 06:57; Status DC Fentanyl Citrate 30 ml @ 0 mls/hr CONT PRN IV PER PROTOCOL Last administered on 03/13/18at 03:06; Start 03/09/18 at 07:00; Stop 03/13/18 at 16:35; Status DC Fentanyl Citrate (Fentanyl 2ml Vial) 25 mcg PRN Q1HR PRN IV MILD PAIN; Start at 07:00 Fentanyl Citrate (Fentanyl 2ml Vial) 50 mcg PRN Q1HR PRN IV MOD TO SEVERE PAIN ; Start 03/09/18 at 07:00 Chlorhexidine Gluconate (Peridex) 15 ml BID MM Last administered on 03/14/18at 08 :11; Start 03/09/18 at 09:00; Stop 03/15/18 at 07:33; Status DC Midazolam HCl (Versed) 2 mg PRN Q30MIN PRN IV SEDATION; Start 03/09/18 at 07:00 ; Stop 03/10/18 at 10:26; Status DC Midazolam HCl 100 ml @ 0 mls/hr CONT PRN IV PER PROTOCOL Last administered on at 14:07; Start 03/09/18 at 07:00; Stop 03/13/18 at 16:35; Status DC Enoxaparin Sodium (Lovenox 40mg Syringe) 40 mg Q12H SQ Last administered on 03/10at 09:31; Start 03/09/18 at 09:00; Stop 03/10/18 at 12:01; Status DC Sodium Chloride 1,000 ml @ 75 mls/hr [id number] IV Last administered on 03/14/18at 02:48; Start 03/09/18 at 10:15; Stop 03/14/18 at 10:32; Status DC Sodium Chloride 1,000 ml @ 1,000 mls/hr 1X ONCE IV Last administered on at 10:15; Start 03/09/18 at 10:15; Stop 03/09/18 at 11:14; Status DC Norepinephrine Bitartrate 250 ml @ As Directed STK-MED ONCE IV ; Start 03/09/18 at 10:37; Stop 03/09/18 at 10:38; Status DC Phenylephrine HCl 20 mg/Sodium Chloride 252 ml @ 22.68 mls/ hr 1X ONCE IV ; Start 03/09/18 at 10:45; Stop 03/09/18 at 21:51; Status DC Iohexol (Omnipaque 300 Mg/ml) 75 ml 1X ONCE IV ; Start 03/09/18 at 11:30; Stop 03/09/18 at 11:35; Status DC Micafungin Sodium 100 mg/Dextrose 100 ml @ 100 mls/hr Q24H IV Last administered on 03/15/18at 16:00; Start 03/09/18 at 16:00 Linezolid/Dextrose 300 ml @ 300 mls/hr Q12H IV Last administered on 03/14/18at 04:58; Start 03/09/18 at 17:00; Stop 03/14/18 at 09:14; Status DC Norepinephrine Bitartrate 250 ml @ 1.875 mls/ hr CONT PRN IV SEE I/O RECORD Last administered on 03/09/18at 16:18; Start 03/09/18 at 16:00; Stop 03/15/18 at 12 :46; Status DC Furosemide (Lasix) 40 mg 1X ONCE IVP Last administered on 03/10/18at 08:49; Start 03/10/18 at 09:00; Stop 03/10/18 at 09:01; Status DC Perflutren Protein Type A Microsphe (Optison) 0.66 mg STK-MED ONCE IV ; Start at 10:23; Stop 03/10/18 at 10:25; Status DC Enoxaparin Sodium (Lovenox Per Pharmacy Treatment Dosing) 1 each PRN DAILY PRN MC SEE COMMENTS; Start 03/10/18 at 12:00; Stop 03/11/18 at 12:50; Status DC Enoxaparin Sodium (Lovenox 150mg Syringe) 130 mg Q12H SQ Last administered on at 07:48; Start 03/10/18 at 21:00; Stop 03/11/18 at 12:51; Status DC Enoxaparin Sodium (Lovenox 100mg Syringe) 90 mg 1X ONCE SQ Last administered on 03/10/18at 13:53; Start 03/10/18 at 12:30; Stop 03/10/18 at 12:31; Status DC Perflutren Protein Type A Microsphe (Optison) 0.66 mg 1X ONCE IV Last administered on 03/10/18at 12:55; Start 03/10/18 at 13:00; Stop 03/10/18 at 13:01; Status DC Iohexol (Omnipaque 300 Mg/ml) 75 ml 1X ONCE IV Last administered on 03/11/18at 10:00; Start 03/11/18 at 09:00; Stop 03/11/18 at 09:01; Status DC Info (CONTRAST GIVEN -- Rx MONITORING) 1 each PRN DAILY PRN MC SEE COMMENTS; Start 03/11/18 at 09:00; Stop 03/13/18 at 08:59; Status DC Norepinephrine Bitartrate (Levophed 8mg/ 250ml Premix Drip) 8 mg STK-MED ONCE IV ; Start 03/09/18 at 07:00; Stop 03/11/18 at 08:58; Status DC Insulin Human Lispro (HumaLOG) 0-5 UNITS TIDWMEALS SQ Last administered on 03/16at 09:13; Start 03/11/18 at 12:00 Dextrose (Dextrose 50%-Water Syringe) 12.5 gm PRN Q15MIN PRN IV SEE COMMENTS; Start 03/11/18 at 09:15 Potassium Chloride/Water 50 ml @ 50 mls/hr 1X ONCE IV Last administered on 03/11at 09:43; Start 03/11/18 at 10:00; Stop 03/11/18 at 10:59; Status DC Info (Anti-Coagulation Monitoring By Pharmacy) 1 each PRN DAILY PRN MC SEE COMMENTS; Start 03/11/18 at 09:30; Stop 03/11/18 at 12:51; Status DC Info (Tpn Per Pharmacy) 1 each PRN DAILY PRN MC SEE COMMENTS Last administered on 03/15/18at 12:39; Start 03/11/18 at 11:15 Magnesium Sulfate 50 ml @ 25 mls/hr 1X ONCE IV Last administered on 03/11/18at 15:09; Start 03/11/18 at 16:00; Stop 03/11/18 at 17:59; Status DC Potassium Phosphate 13.6 mmol/Dextrose 104.5333 ml @ 52.267 m... ONCE ONCE IV Last administered on 03/11/18at 17:11; Start 03/11/18 at 18:00; Stop 03/11/18 at 19:59; Status DC Norepinephrine Bitartrate (Levophed 8mg/ 250ml Premix Drip) 8 mg STK-MED ONCE IV ; Start 03/09/18 at 11:00; Stop 03/11/18 at 12:37; Status DC Enoxaparin Sodium (Lovenox 40mg Syringe) 40 mg Q12HR SQ Last administered on 06/23at 09:04; Start 03/11/18 at 21:00 Sodium Chloride 90 meq/Potassium Chloride 50 meq/ Potassium Phosphate 13.6 mmol/ Magnesium Sulfate 10 meq/ Multivitamins 10 ml/Chromium/ Copper/Manganese/ Seleni /Zn 1 ml/ Total Parenteral Nutrition/Amino Acids/Dextrose/ Fat Emulsion Intravenous 1,800 ml @ 75 mls/hr TPN CONT IV Last administered on 03/11/18at 21 :44; Start 03/11/18 at 22:00; Stop 03/12/18 at 21:59; Status DC Potassium Chloride/Water 50 ml @ 50 mls/hr 1X ONCE IV Last administered on 03/12at 10:40; Start 03/12/18 at 09:30; Stop 03/12/18 at 10:29; Status DC Sodium Chloride 90 meq/Potassium Acetate 70 meq/ Potassium Phosphate 10 mmol/ Magnesium Sulfate 10 meq/ Multivitamins 10 ml/Chromium/ Copper/Manganese/ Seleni /Zn 1 ml/ Total Parenteral Nutrition/Amino Acids/Dextrose/ Fat Emulsion Intravenous 1,800 ml @ 75 mls/hr TPN CONT IV ; Start 03/12/18 at 22:00; Stop at 22:00; Status DC Sodium Chloride 90 meq/Potassium Chloride 70 meq/ Potassium Phosphate 10 mmol/ Magnesium Sulfate 10 meq/ Multivitamins 10 ml/Chromium/ Copper/Manganese/ Seleni /Zn 1 ml/ Total Parenteral Nutrition/Amino Acids/Dextrose/ Fat Emulsion Intravenous 1,800 ml @ 75 mls/hr TPN CONT IV Last administered on 03/12/18at 21 :41; Start 03/12/18 at 22:00; Stop 03/13/18 at 21:59; Status DC Benzocaine (Hurricaine One) 1 spray 1X ONCE MM ; Start 03/13/18 at 12:45; Stop 03/13/18 at 12:45; Status DC Promethazine HCl/ Codeine (Phenergan With Codeine) 5 ml PRN Q6HRS PRN PO COUGH Last administered on 03/14/18at 08:10; Start 03/13/18 at 12:45 Benzocaine (Hurricaine One) 1 spray 1X ONCE MM ; Start 03/13/18 at 12:45; Stop 03/13/18 at 12:45; Status DC Benzocaine (Hurricaine One) 1 spray 1X ONCE MM Last administered on 03/13/18at 16:11; Start 03/13/18 at 12:45; Stop 03/13/18 at 12:46; Status DC Sodium Chloride 90 meq/Potassium Chloride 70 meq/ Potassium Phosphate 13.6 mmol/ Magnesium Sulfate 10 meq/ Multivitamins 10 ml/Chromium/ Copper/Manganese/ Seleni /Zn 1 ml/ Total Parenteral Nutrition/Amino Acids/Dextrose/ Fat Emulsion Intravenous 1,800 ml @ 75 mls/hr TPN CONT IV Last administered on 03/13/18at 21 :53; Start 03/13/18 at 22:00; Stop 03/14/18 at 21:59; Status DC Propofol 100 ml @ As Directed STK-MED ONCE IV ; Start 03/13/18 at 15:47; Stop at 15:48; Status DC Propofol 100 ml @ 0 mls/hr CONT PRN IV PER PROTOCOL Last administered on at 05:04; Start 03/13/18 at 16:45; Stop 03/14/18 at 17:45; Status DC Hydralazine HCl (Apresoline Inj) 10 mg PRN Q4HRS PRN IVP ELEVATED BP, SEE COMMENTS Last administered on 03/15/18at 11:37; Start 03/14/18 at 09:00 Albuterol/ Ipratropium (Duoneb) 3 ml RTQID NEB Last administered on 03/15/18at 08:27; Start 03/14/18 at 12:00; Stop 03/15/18 at 11:01; Status DC Albuterol/ Ipratropium (Duoneb) 3 ml 1X ONCE NEB Last administered on at 09:36; Start 03/14/18 at 09:30; Stop 03/14/18 at 09:31; Status DC Dexmedetomidine HCl 200 mcg/ Sodium Chloride 50 ml @ 0 mls/hr CONT PRN IV PER PROTOCOL Last administered on 03/14/18at 14:17; Start 03/14/18 at 10:30; Stop 03/15 at 07:33; Status DC Sodium Chloride 500 ml @ 500 mls/hr 1X PRN PRN IV SEE COMMENTS; Start 03/14/18 at 10:30 Atropine Sulfate (ATROPINE 0.5mg SYRINGE) 0.5 mg PRN Q5MIN PRN IV SEE COMMENTS ; Start 03/14/18 at 10:30 Furosemide (Lasix) 40 mg 1X ONCE IVP Last administered on 03/14/18at 10:45; Start 03/14/18 at 10:30; Stop 03/14/18 at 10:31; Status DC Sodium Chloride 90 meq/Potassium Chloride 70 meq/ Potassium Phosphate 13.6 mmol/ Magnesium Sulfate 10 meq/ Multivitamins 10 ml/Chromium/ Copper/Manganese/ Seleni /Zn 1 ml/ Total Parenteral Nutrition/Amino Acids/Dextrose/ Fat Emulsion Intravenous 1,800 ml @ 75 mls/hr TPN CONT IV Last administered on 03/14/18at 22 :33; Start 03/14/18 at 22:00; Stop 03/15/18 at 21:59; Status DC Pantoprazole Sodium (PROTONIX VIAL for IV PUSH) 40 mg BID IVP Last administered on 03/16/18at 09:03; Start 03/15/18 at 09:00 Iohexol (Omnipaque 300 Mg/ml) 75 ml 1X ONCE IV Last administered on 03/15/18at 06:15; Start 03/15/18 at 06:15; Stop 03/15/18 at 06:16; Status DC Iohexol (Omnipaque 240 Mg/ml) 50 ml 1X ONCE PO Last administered on 03/15/18at 06:15; Start 03/15/18 at 06:15; Stop 03/15/18 at 06:16; Status DC Info (CONTRAST GIVEN -- Rx MONITORING) 1 each PRN DAILY PRN MC SEE COMMENTS; Start 03/15/18 at 06:15; Stop 03/17/18 at 06:14 Labetalol HCl (Normodyne) 20 mg PRN Q2HR PRN IVP HYPERTENSION, SEE COMMENTS Last administered on 03/15/18at 09:46; Start 03/15/18 at 09:30 Ipratropium Childress (Atrovent) 0.5 mg 1X ONCE NEB ; Start 03/15/18 at 12:00; Stop 03/15/18 at 12:00; Status DC Ipratropium Childress (Atrovent) 0.5 mg RTQID NEB Last administered on 03/16/18at 08:11; Start 03/15/18 at 12:00 Metoprolol Tartrate (Lopressor Vial) 5 mg Q6HRS IVP Last administered on at 12:56; Start 03/15/18 at 12:00; Stop 03/15/18 at 18:14; Status DC Carvedilol (Coreg) 12.5 mg BIDWMEALS PO Last administered on 03/16/18at 09:03; Start 03/15/18 at 17:00 Sodium Chloride 90 meq/Potassium Chloride 70 meq/ Potassium Phosphate 5 mmol/ Magnesium Sulfate 10 meq/ Multivitamins 10 ml/Chromium/ Copper/Manganese/ Seleni /Zn 1 ml/ Total Parenteral Nutrition/Amino Acids/Dextrose/ Fat Emulsion Intravenous 1,800 ml @ 75 mls/hr TPN CONT IV Last administered on 03/15/18at 21:17; Start 03/15/18 at 22:00; Stop 03/16/18 at 21:59 Phenazopyridine HCl (Pyridium) 200 mg PRN TID PRN PO URINARY PAIN; Start at 11:15 Active Scripts Active Reported Amlodipine Besylate 5 Mg Tablet 5 Mg PO DAILY Omeprazole 40 Mg Capsule.dr 1 Cap PO BID Vitals/I & O Vital Sign - Last 24 Hours 03/15/18 03/15/18 03/15/18 03/15/18 11:37 12:00 12:00 12:56 Temp 98.7 98.7 Pulse 105 119 119 Resp 20 B/P (MAP) 185/90 164/89 (114) 164/89 Pulse Ox 94 O2 Delivery Nasal Cannula Nasal Cannula O2 Flow Rate 2.0 2.0 03/15/18 03/15/18 03/15/18 03/15/18 15:00 15:00 16:02 16:24 Temp 98.3 98.3 Pulse 63 106 Resp 18 B/P (MAP) 164/116 (132) 125/59 (81) 145/85 Pulse Ox 93 93 O2 Delivery Nasal Cannula Nasal Cannula O2 Flow Rate 2.0 2.0 03/15/18 03/15/18 03/15/18 03/15/18 19:30 20:00 20:17 22:31 Temp 98.6 98.6 Pulse 98 Resp 26 B/P (MAP) 143/83 (103) Pulse Ox 93 95 O2 Delivery Nasal Cannula Nasal Cannula Nasal Cannula Nasal Cannula O2 Flow Rate 2.0 2.0 2.0 2.0 03/15/18 03/16/18 03/16/18 03/16/18 23:05 03:55 07:00 07:50 Temp 98.3 97.8 98.2 98.3 97.8 98.2 Pulse 96 97 93 Resp 26 28 18 B/P (MAP) 154/80 (104) 153/71 (98) 154/82 (106) Pulse Ox 91 92 91 O2 Delivery Nasal Cannula Nasal Cannula Nasal Cannula Nasal Cannula O2 Flow Rate 2.0 2.0 2.0 2.0 03/16/18 03/16/18 08:11 09:03 Pulse 97 B/P (MAP) 154/82 Pulse Ox 92 O2 Delivery Nasal Cannula O2 Flow Rate 2.0 Intake and Output 03/15/18 03/15/18 03/16/18 15:00 23:00 07:00 Intake Total 360 ml Output Total 600 ml 400 ml 100 ml Balance -600 ml -40 ml -100 ml EVAN MCGHEE MD Mar 16, 2018 11:19
--- NOTE | 2018-03-16 14:41 | PDOC ---
PROGRESS NOTES Chief Complaint Chief Complaint status post cardiac arrest, nonsustained V. 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 extubated 03/14, on NC PICC line then changed PPN to TPN 75cc/h, keep NPO, ok to take meds change lovenox to dvt ppx gi ppx off pressors. passed swallow eval coreg added, cath on Sunday as per card talked to daily at bedside History of Present Illness History of Present Illness Admitted for perforation of the diverticulitis, first episode of diverticulitis. But about 6:15 AM Sunday, found on the ground, unresponsive, nonsustained V. tach, 2 minutes of CPR, with ROSC extubated 03/14 NEeded levophed sunday - but off pressors sunday talked to at bedside for a long time, who is not happy that someone told her that pt had heart attack i printed out the echo result to her and explained some possibilities for the CHF CT 03/11 showed diverticulitis, 2.4cm abscess 03/15 CT showed smaller old abcess, but new fluid pocket. 03/15: extubated 03/14. sinus HR 140s after duoneb, high BP. no abd pain. lasix x1 03/14, wbc higher to 11. Vitals Vitals Vital Signs Date Time Temp Pulse Resp B/P (MAP) Pulse Ox O2 Delivery O2 Flow Rate FiO2 03/16/18 11:28 Nasal Cannula 2.0 03/16/18 11:00 97.7 93 18 133/76 (95) 90 97.7 Physical Exam Physical Exam GENERAL: NAD, alert, looks really well. in shower ABDOMEN: Obese SKIN: warm without rash NEURO: - alert/appropriate/pleasant General: Alert, Oriented X3, Cooperative Heart: Regular rate Lungs: Clear Abdomen: Soft, No tenderness, Other (decreased bs, mild distended.) Extremities: No clubbing, No cyanosis Skin: No rashes, No breakdown Labs LABS Laboratory Tests Test 03/15/18 17:48 03/15/18 20:57 03/15/18 23:40 03/16/18 06:15 Glucose (Fingerstick) 162 mg/dL (70-99) 136 mg/dL (70-99) Urine Collection Type Unknown Urine Color Yellow Urine Clarity Clear Urine pH 6.5 Urine Specific [place] >=1.030 Urine Protein 100 mg/dL (NEG-TRACE) Urine Glucose (UA) Negative mg/dL (NEG) Urine Ketones (Stick) Negative mg/dL (NEG) Urine Blood Negative (NEG) Urine Nitrite Negative (NEG) Urine Bilirubin Negative (NEG) Urine Urobilinogen Dipstick 0.2 mg/dL (0.2 mg/dL) Urine Leukocyte Esterase Negative (NEG) Urine RBC 11-20 /HPF (0-2) Urine WBC Occ /HPF (0-4) Urine Squamous Epithelial Cells Few /LPF Urine Bacteria 0 /HPF (0-FEW) Urine Mucus Slight /LPF White Blood Count 11.9 x10^3/uL (4.0-11.0) Red Blood Count 3.88 x10^6/uL (4.30-5.70) Hemoglobin 11.3 g/dL (13.0-17.5) Hematocrit 34.9 % (39.0-53.0) Mean Corpuscular Volume 90 fL (79-100) Mean Corpuscular Hemoglobin 29 pg (25-35) Mean Corpuscular Hemoglobin Concent 33 g/dL (31-37) Red Cell Distribution Width 13.7 % (11.5-14.5) Platelet Count 503 x10^3/uL (140-400) Neutrophils (%) (Auto) 73 % (31-73) Lymphocytes (%) (Auto) 14 % (24-48) Monocytes (%) (Auto) 9 % (0-9) Eosinophils (%) (Auto) 4 % (0-3) Basophils (%) (Auto) 1 % (0-3) Neutrophils # (Auto) 8.7 x10^3uL (1.8-7.7) Lymphocytes # (Auto) 1.6 x10^3/uL (1.0-4.8) Monocytes # (Auto) 1.0 x10^3/uL (0.0-1.1) Eosinophils # (Auto) 0.4 x10^3/uL (0.0-0.7) Basophils # (Auto) 0.1 x10^3/uL (0.0-0.2) Sodium Level 139 mmol/L (136-145) Potassium Level 4.0 mmol/L (3.5-5.1) Chloride Level 104 mmol/L (98-107) Carbon Dioxide Level 28 mmol/L (21-32) Anion Gap 7 (6-14) Blood Urea Nitrogen 17 mg/dL (8-26) Creatinine 0.9 mg/dL (0.7-1.3) Estimated GFR (Cockcroft-Gault) 95.5 BUN/Creatinine Ratio 19 (6-20) Glucose Level 171 mg/dL (70-99) Calcium Level 9.5 mg/dL (8.5-10.1) Phosphorus Level 4.2 mg/dL (2.6-4.7) Magnesium Level 2.0 mg/dL (1.8-2.4) Total Bilirubin 0.3 mg/dL (0.2-1.0) Aspartate Amino Transf (AST/SGOT) 123 U/L (15-37) Alanine Aminotransferase (ALT/SGPT) 118 U/L (16-63) Alkaline Phosphatase 67 U/L (46-116) Total Protein 8.0 g/dL (6.4-8.2) Albumin 2.5 g/dL (3.4-5.0) Albumin/Globulin Ratio 0.5 (1.0-1.7) Test 03/16/18 07:55 03/16/18 11:09 Glucose (Fingerstick) 158 mg/dL (70-99) 147 mg/dL (70-99) Assessment and Plan Assessmemt and Plan Problems Medical Problems: (1) Diverticulitis of colon with perforation Status: Acute Comment Review of Relevant I have reviewed the following items kalin (where applicable) has been applied. Labs Laboratory Tests Test 03/14/18 16:45 03/14/18 17:05 03/14/18 19:15 03/15/18 04:40 Potassium Level 3.6 mmol/L (3.5-5.1) 3.6 mmol/L (3.5-5.1) Glucose (Fingerstick) 130 mg/dL (70-99) 148 mg/dL (70-99) White Blood Count 11.1 x10^3/uL (4.0-11.0) Red Blood Count 3.98 x10^6/uL (4.30-5.70) Hemoglobin 12.0 g/dL (13.0-17.5) Hematocrit 35.8 % (39.0-53.0) Mean Corpuscular Volume 90 fL (79-100) Mean Corpuscular Hemoglobin 30 pg (25-35) Mean Corpuscular Hemoglobin Concent 34 g/dL (31-37) Red Cell Distribution Width 13.7 % (11.5-14.5) Platelet Count 526 x10^3/uL (140-400) Neutrophils (%) (Auto) 72 % (31-73) Lymphocytes (%) (Auto) 16 % (24-48) Monocytes (%) (Auto) 10 % (0-9) Eosinophils (%) (Auto) 2 % (0-3) Basophils (%) (Auto) 1 % (0-3) Neutrophils # (Auto) 7.9 x10^3uL (1.8-7.7) Lymphocytes # (Auto) 1.7 x10^3/uL (1.0-4.8) Monocytes # (Auto) 1.1 x10^3/uL (0.0-1.1) Eosinophils # (Auto) 0.2 x10^3/uL (0.0-0.7) Basophils # (Auto) 0.1 x10^3/uL (0.0-0.2) Sodium Level 144 mmol/L (136-145) Chloride Level 106 mmol/L (98-107) Carbon Dioxide Level 28 mmol/L (21-32) Anion Gap 10 (6-14) Blood Urea Nitrogen 14 mg/dL (8-26) Creatinine 1.0 mg/dL (0.7-1.3) Estimated GFR (Cockcroft-Gault) 84.5 Glucose Level 136 mg/dL (70-99) Calcium Level 9.2 mg/dL (8.5-10.1) Phosphorus Level 4.7 mg/dL (2.6-4.7) Magnesium Level 2.0 mg/dL (1.8-2.4) Procalcitonin 0.53 ng/mL (0.00-0.10) Test 03/15/18 08:00 03/15/18 11:41 03/15/18 17:48 03/15/18 20:57 O2 Saturation 94 % (92-99) Arterial Blood pH 7.44 (7.35-7.45) Arterial Blood pCO2 at Patient Temp 37 mmHg (35-46) Arterial Blood pO2 at Patient Temp 76 mmHg (85-108) Arterial Blood HCO3 25 mmol/L (21-28) Arterial Blood Base Excess 1 mmol/L (-3-3) Oxyhemoglobin 93.6 % Methemoglobin 0.3 % (0.0-1.9) Carbon Monoxide, Quantitative 0.4 % (0.0-1.9) FiO2 24 Glucose (Fingerstick) 188 mg/dL (70-99) 162 mg/dL (70-99) 136 mg/dL (70-99) Test 03/15/18 23:40 03/16/18 06:15 03/16/18 07:55 03/16/18 11:09 Urine Collection Type Unknown Urine Color Yellow Urine Clarity Clear Urine pH 6.5 Urine Specific [place] >=1.030 Urine Protein 100 mg/dL (NEG-TRACE) Urine Glucose (UA) Negative mg/dL (NEG) Urine Ketones (Stick) Negative mg/dL (NEG) Urine Blood Negative (NEG) Urine Nitrite Negative (NEG) Urine Bilirubin Negative (NEG) Urine Urobilinogen Dipstick 0.2 mg/dL (0.2 mg/dL) Urine Leukocyte Esterase Negative (NEG) Urine RBC 11-20 /HPF (0-2) Urine WBC Occ /HPF (0-4) Urine Squamous Epithelial Cells Few /LPF Urine Bacteria 0 /HPF (0-FEW) Urine Mucus Slight /LPF White Blood Count 11.9 x10^3/uL (4.0-11.0) Red Blood Count 3.88 x10^6/uL (4.30-5.70) Hemoglobin 11.3 g/dL (13.0-17.5) Hematocrit 34.9 % (39.0-53.0) Mean Corpuscular Volume 90 fL (79-100) Mean Corpuscular Hemoglobin 29 pg (25-35) Mean Corpuscular Hemoglobin Concent 33 g/dL (31-37) Red Cell Distribution Width 13.7 % (11.5-14.5) Platelet Count 503 x10^3/uL (140-400) Neutrophils (%) (Auto) 73 % (31-73) Lymphocytes (%) (Auto) 14 % (24-48) Monocytes (%) (Auto) 9 % (0-9) Eosinophils (%) (Auto) 4 % (0-3) Basophils (%) (Auto) 1 % (0-3) Neutrophils # (Auto) 8.7 x10^3uL (1.8-7.7) Lymphocytes # (Auto) 1.6 x10^3/uL (1.0-4.8) Monocytes # (Auto) 1.0 x10^3/uL (0.0-1.1) Eosinophils # (Auto) 0.4 x10^3/uL (0.0-0.7) Basophils # (Auto) 0.1 x10^3/uL (0.0-0.2) Sodium Level 139 mmol/L (136-145) Potassium Level 4.0 mmol/L (3.5-5.1) Chloride Level 104 mmol/L (98-107) Carbon Dioxide Level 28 mmol/L (21-32) Anion Gap 7 (6-14) Blood Urea Nitrogen 17 mg/dL (8-26) Creatinine 0.9 mg/dL (0.7-1.3) Estimated GFR (Cockcroft-Gault) 95.5 BUN/Creatinine Ratio 19 (6-20) Glucose Level 171 mg/dL (70-99) Calcium Level 9.5 mg/dL (8.5-10.1) Phosphorus Level 4.2 mg/dL (2.6-4.7) Magnesium Level 2.0 mg/dL (1.8-2.4) Total Bilirubin 0.3 mg/dL (0.2-1.0) Aspartate Amino Transf (AST/SGOT) 123 U/L (15-37) Alanine Aminotransferase (ALT/SGPT) 118 U/L (16-63) Alkaline Phosphatase 67 U/L (46-116) Total Protein 8.0 g/dL (6.4-8.2) Albumin 2.5 g/dL (3.4-5.0) Albumin/Globulin Ratio 0.5 (1.0-1.7) Glucose (Fingerstick) 158 mg/dL (70-99) 147 mg/dL (70-99) Laboratory Tests Test 03/15/18 17:48 03/15/18 20:57 03/15/18 23:40 03/16/18 06:15 Glucose (Fingerstick) 162 mg/dL (70-99) 136 mg/dL (70-99) Urine Collection Type Unknown Urine Color Yellow Urine Clarity Clear Urine pH 6.5 Urine Specific [place] >=1.030 Urine Protein 100 mg/dL (NEG-TRACE) Urine Glucose (UA) Negative mg/dL (NEG) Urine Ketones (Stick) Negative mg/dL (NEG) Urine Blood Negative (NEG) Urine Nitrite Negative (NEG) Urine Bilirubin Negative (NEG) Urine Urobilinogen Dipstick 0.2 mg/dL (0.2 mg/dL) Urine Leukocyte Esterase Negative (NEG) Urine RBC 11-20 /HPF (0-2) Urine WBC Occ /HPF (0-4) Urine Squamous Epithelial Cells Few /LPF Urine Bacteria 0 /HPF (0-FEW) Urine Mucus Slight /LPF White Blood Count 11.9 x10^3/uL (4.0-11.0) Red Blood Count 3.88 x10^6/uL (4.30-5.70) Hemoglobin 11.3 g/dL (13.0-17.5) Hematocrit 34.9 % (39.0-53.0) Mean Corpuscular Volume 90 fL (79-100) Mean Corpuscular Hemoglobin 29 pg (25-35) Mean Corpuscular Hemoglobin Concent 33 g/dL (31-37) Red Cell Distribution Width 13.7 % (11.5-14.5) Platelet Count 503 x10^3/uL (140-400) Neutrophils (%) (Auto) 73 % (31-73) Lymphocytes (%) (Auto) 14 % (24-48) Monocytes (%) (Auto) 9 % (0-9) Eosinophils (%) (Auto) 4 % (0-3) Basophils (%) (Auto) 1 % (0-3) Neutrophils # (Auto) 8.7 x10^3uL (1.8-7.7) Lymphocytes # (Auto) 1.6 x10^3/uL (1.0-4.8) Monocytes # (Auto) 1.0 x10^3/uL (0.0-1.1) Eosinophils # (Auto) 0.4 x10^3/uL (0.0-0.7) Basophils # (Auto) 0.1 x10^3/uL (0.0-0.2) Sodium Level 139 mmol/L (136-145) Potassium Level 4.0 mmol/L (3.5-5.1) Chloride Level 104 mmol/L (98-107) Carbon Dioxide Level 28 mmol/L (21-32) Anion Gap 7 (6-14) Blood Urea Nitrogen 17 mg/dL (8-26) Creatinine 0.9 mg/dL (0.7-1.3) Estimated GFR (Cockcroft-Gault) 95.5 BUN/Creatinine Ratio 19 (6-20) Glucose Level 171 mg/dL (70-99) Calcium Level 9.5 mg/dL (8.5-10.1) Phosphorus Level 4.2 mg/dL (2.6-4.7) Magnesium Level 2.0 mg/dL (1.8-2.4) Total Bilirubin 0.3 mg/dL (0.2-1.0) Aspartate Amino Transf (AST/SGOT) 123 U/L (15-37) Alanine Aminotransferase (ALT/SGPT) 118 U/L (16-63) Alkaline Phosphatase 67 U/L (46-116) Total Protein 8.0 g/dL (6.4-8.2) Albumin 2.5 g/dL (3.4-5.0) Albumin/Globulin Ratio 0.5 (1.0-1.7) Test 03/16/18 07:55 03/16/18 11:09 Glucose (Fingerstick) 158 mg/dL (70-99) 147 mg/dL (70-99) Microbiology 03/09/18 Blood Culture - Final, Complete NO GROWTH AFTER 5 DAYS Medications Current Medications Sodium Chloride (Normal Saline Flush) 3 ml QSHIFT PRN IV AFTER MEDS AND BLOOD DRAWS; Start 03/07/18 at 11:00 Sodium Chloride 1,000 ml @ 1,000 mls/hr Q1H IV Last administered on 03/07/18at 11:32; Start 03/07/18 at 11:00; Stop 03/07/18 at 11:59; Status DC Iohexol (Omnipaque 300 Mg/ml) 75 ml 1X ONCE IV Last administered on 03/07/18at 12:46; Start 03/07/18 at 11:15; Stop 03/07/18 at 11:16; Status DC Info (CONTRAST GIVEN -- Rx MONITORING) 1 each PRN DAILY PRN MC SEE COMMENTS; Start 03/07/18 at 11:15; Stop 03/09/18 at 11:14; Status DC Sodium Chloride 1,000 ml @ 1,000 mls/hr 1X ONCE IV Last administered on at 12:37; Start 03/07/18 at 12:00; Stop 03/07/18 at 12:59; Status DC Fentanyl Citrate (Fentanyl 2ml Vial) 50 mcg 1X ONCE IV Last administered on 03/07/18at 13:07; Start 03/07/18 at 13:00; Stop 03/07/18 at 13:01; Status DC Metronidazole 100 ml @ 100 mls/hr 1X ONCE IV ; Start 03/07/18 at 13:30; Stop at 14:29; Status DC Ciprofloxacin/ Dextrose 200 ml @ 200 mls/hr ONCE STAT IV Last administered on 03/07/18at 13:42; Start 03/07/18 at 13:12; Stop 03/07/18 at 14:11; Status DC Piperacillin Sod/ Tazobactam Sod 3.375 gm/Sodium Chloride 50 ml @ 100 mls/hr 1X ONCE IV Last administered on 03/07/18at 14:43; Start 03/07/18 at 14:30; Stop 03/07/18 at 14:59; Status DC Diphenhydramine HCl (Benadryl) 50 mg 1X ONCE IVP Last administered on at 14:33; Start 03/07/18 at 14:15; Stop 03/07/18 at 14:16; Status DC Fentanyl Citrate (Fentanyl 2ml Vial) 25 mcg 1X ONCE IV ; Start 03/07/18 at 14:15 ; Stop 03/07/18 at 14:16; Status Cancel Morphine Sulfate (Morphine Sulfate) 4 mg 1X ONCE IV Last administered on at 14:35; Start 03/07/18 at 14:30; Stop 03/07/18 at 14:31; Status DC Ondansetron HCl (Zofran) 4 mg PRN Q8HRS PRN IV NAUSEA/VOMITING; Start 03/07/18 at 14:30; Stop 03/08/18 at 14:29; Status DC Morphine Sulfate (Morphine Sulfate) 4 mg PRN Q2HR PRN IV PAIN Last administered on 03/08/18at 08:20; Start 03/07/18 at 14:30; Stop 03/08/18 at 14:29; Status DC Piperacillin Sod/ Tazobactam Sod 3.375 gm/Sodium Chloride 50 ml @ 100 mls/hr Q6HRS IV Last administered on 03/16/18at 12:28; Start 03/07/18 at 18:00 Metronidazole 100 ml @ 100 mls/hr Q8HRS IV Last administered on 03/09/18at 11:19 ; Start 03/07/18 at 22:00; Stop 03/09/18 at 15:10; Status DC Sodium Chloride 500 ml @ 500 mls/hr 1X ONCE IV Last administered on 03/07/18at 16:45; Start 03/07/18 at 16:45; Stop 03/07/18 at 17:44; Status DC Amino Acids/ Glycerin/ Electrolytes 1,000 ml @ 80 mls/hr [id number] IV Last administered on 03/11/18at 07:47; Start 03/07/18 at 16:45; Stop 03/11/18 at 20:21; Status DC Acetaminophen (Tylenol) 650 mg PRN Q6HRS PRN PO fever ; Start 03/07/18 at 18:00 Pantoprazole Sodium (PROTONIX VIAL for IV PUSH) 40 mg DAILYAC IVP Last administered on 03/14/18at 08:10; Start 03/08/18 at 07:45; Stop 03/14/18 at 17:45; Status DC Morphine Sulfate (Morphine Sulfate) 4 mg PRN Q2HR PRN IV MODRATE-SEVERE PAIN 2ND CHOICE Last administered on 03/15/18at 22:01; Start 03/08/18 at 14:45 Lorazepam (Ativan) 1 mg PRN Q4HRS PRN IV ANXIETY / AGITATION Last administered on 03/15/18at 15:14; Start 03/08/18 at 20:30 Ondansetron HCl (Zofran) 4 mg PRN Q6HRS PRN IV NAUSEA/VOMITING 1ST CHOICE Last administered on 03/14/18at 12:16; Start 03/09/18 at 02:00 Etomidate (Amidate) 20 mg STK-MED ONCE IV ; Start 03/09/18 at 06:55; Stop at 06:56; Status DC Norepinephrine Bitartrate 250 ml @ As Directed STK-MED ONCE IV ; Start 03/09/18 at 06:55; Stop 03/09/18 at 06:56; Status DC Midazolam HCl (Versed) 5 mg STK-MED ONCE .ROUTE ; Start 03/09/18 at 06:55; Stop 03/09/18 at 06:56; Status DC Fentanyl Citrate (Fentanyl 2ml Vial) 100 mcg STK-MED ONCE .ROUTE ; Start at 06:55; Stop 03/09/18 at 06:56; Status DC Succinylcholine Chloride (Anectine) 200 mg STK-MED ONCE .ROUTE ; Start 03/09/18 at 06:56; Stop 03/09/18 at 06:57; Status DC Fentanyl Citrate 30 ml @ 0 mls/hr CONT PRN IV PER PROTOCOL Last administered on 03/13/18at 03:06; Start 03/09/18 at 07:00; Stop 03/13/18 at 16:35; Status DC Fentanyl Citrate (Fentanyl 2ml Vial) 25 mcg PRN Q1HR PRN IV MILD PAIN; Start at 07:00 Fentanyl Citrate (Fentanyl 2ml Vial) 50 mcg PRN Q1HR PRN IV MOD TO SEVERE PAIN ; Start 03/09/18 at 07:00 Chlorhexidine Gluconate (Peridex) 15 ml BID MM Last administered on 03/14/18at 08 :11; Start 03/09/18 at 09:00; Stop 03/15/18 at 07:33; Status DC Midazolam HCl (Versed) 2 mg PRN Q30MIN PRN IV SEDATION; Start 03/09/18 at 07:00 ; Stop 03/10/18 at 10:26; Status DC Midazolam HCl 100 ml @ 0 mls/hr CONT PRN IV PER PROTOCOL Last administered on at 14:07; Start 03/09/18 at 07:00; Stop 03/13/18 at 16:35; Status DC Enoxaparin Sodium (Lovenox 40mg Syringe) 40 mg Q12H SQ Last administered on 03/10at 09:31; Start 03/09/18 at 09:00; Stop 03/10/18 at 12:01; Status DC Sodium Chloride 1,000 ml @ 75 mls/hr [id number] IV Last administered on 03/14/18at 02:48; Start 03/09/18 at 10:15; Stop 03/14/18 at 10:32; Status DC Sodium Chloride 1,000 ml @ 1,000 mls/hr 1X ONCE IV Last administered on at 10:15; Start 03/09/18 at 10:15; Stop 03/09/18 at 11:14; Status DC Norepinephrine Bitartrate 250 ml @ As Directed STK-MED ONCE IV ; Start 03/09/18 at 10:37; Stop 03/09/18 at 10:38; Status DC Phenylephrine HCl 20 mg/Sodium Chloride 252 ml @ 22.68 mls/ hr 1X ONCE IV ; Start 03/09/18 at 10:45; Stop 03/09/18 at 21:51; Status DC Iohexol (Omnipaque 300 Mg/ml) 75 ml 1X ONCE IV ; Start 03/09/18 at 11:30; Stop 03/09/18 at 11:35; Status DC Micafungin Sodium 100 mg/Dextrose 100 ml @ 100 mls/hr Q24H IV Last administered on 03/15/18at 16:00; Start 03/09/18 at 16:00 Linezolid/Dextrose 300 ml @ 300 mls/hr Q12H IV Last administered on 03/14/18at 04:58; Start 03/09/18 at 17:00; Stop 03/14/18 at 09:14; Status DC Norepinephrine Bitartrate 250 ml @ 1.875 mls/ hr CONT PRN IV SEE I/O RECORD Last administered on 03/09/18at 16:18; Start 03/09/18 at 16:00; Stop 03/15/18 at 12 :46; Status DC Furosemide (Lasix) 40 mg 1X ONCE IVP Last administered on 03/10/18at 08:49; Start 03/10/18 at 09:00; Stop 03/10/18 at 09:01; Status DC Perflutren Protein Type A Microsphe (Optison) 0.66 mg STK-MED ONCE IV ; Start at 10:23; Stop 03/10/18 at 10:25; Status DC Enoxaparin Sodium (Lovenox Per Pharmacy Treatment Dosing) 1 each PRN DAILY PRN MC SEE COMMENTS; Start 03/10/18 at 12:00; Stop 03/11/18 at 12:50; Status DC Enoxaparin Sodium (Lovenox 150mg Syringe) 130 mg Q12H SQ Last administered on at 07:48; Start 03/10/18 at 21:00; Stop 03/11/18 at 12:51; Status DC Enoxaparin Sodium (Lovenox 100mg Syringe) 90 mg 1X ONCE SQ Last administered on 03/10/18at 13:53; Start 03/10/18 at 12:30; Stop 03/10/18 at 12:31; Status DC Perflutren Protein Type A Microsphe (Optison) 0.66 mg 1X ONCE IV Last administered on 03/10/18at 12:55; Start 03/10/18 at 13:00; Stop 03/10/18 at 13:01; Status DC Iohexol (Omnipaque 300 Mg/ml) 75 ml 1X ONCE IV Last administered on 03/11/18at 10:00; Start 03/11/18 at 09:00; Stop 03/11/18 at 09:01; Status DC Info (CONTRAST GIVEN -- Rx MONITORING) 1 each PRN DAILY PRN MC SEE COMMENTS; Start 03/11/18 at 09:00; Stop 03/13/18 at 08:59; Status DC Norepinephrine Bitartrate (Levophed 8mg/ 250ml Premix Drip) 8 mg STK-MED ONCE IV ; Start 03/09/18 at 07:00; Stop 03/11/18 at 08:58; Status DC Insulin Human Lispro (HumaLOG) 0-5 UNITS TIDWMEALS SQ Last administered on 03/16at 09:13; Start 03/11/18 at 12:00 Dextrose (Dextrose 50%-Water Syringe) 12.5 gm PRN Q15MIN PRN IV SEE COMMENTS; Start 03/11/18 at 09:15 Potassium Chloride/Water 50 ml @ 50 mls/hr 1X ONCE IV Last administered on 03/11at 09:43; Start 03/11/18 at 10:00; Stop 03/11/18 at 10:59; Status DC Info (Anti-Coagulation Monitoring By Pharmacy) 1 each PRN DAILY PRN MC SEE COMMENTS; Start 03/11/18 at 09:30; Stop 03/11/18 at 12:51; Status DC Info (Tpn Per Pharmacy) 1 each PRN DAILY PRN MC SEE COMMENTS Last administered on 03/15/18at 12:39; Start 03/11/18 at 11:15 Magnesium Sulfate 50 ml @ 25 mls/hr 1X ONCE IV Last administered on 03/11/18at 15:09; Start 03/11/18 at 16:00; Stop 03/11/18 at 17:59; Status DC Potassium Phosphate 13.6 mmol/Dextrose 104.5333 ml @ 52.267 m... ONCE ONCE IV Last administered on 03/11/18at 17:11; Start 03/11/18 at 18:00; Stop 03/11/18 at 19:59; Status DC Norepinephrine Bitartrate (Levophed 8mg/ 250ml Premix Drip) 8 mg STK-MED ONCE IV ; Start 03/09/18 at 11:00; Stop 03/11/18 at 12:37; Status DC Enoxaparin Sodium (Lovenox 40mg Syringe) 40 mg Q12HR SQ Last administered on 06/23at 09:04; Start 03/11/18 at 21:00 Sodium Chloride 90 meq/Potassium Chloride 50 meq/ Potassium Phosphate 13.6 mmol/ Magnesium Sulfate 10 meq/ Multivitamins 10 ml/Chromium/ Copper/Manganese/ Seleni /Zn 1 ml/ Total Parenteral Nutrition/Amino Acids/Dextrose/ Fat Emulsion Intravenous 1,800 ml @ 75 mls/hr TPN CONT IV Last administered on 03/11/18at 21 :44; Start 03/11/18 at 22:00; Stop 03/12/18 at 21:59; Status DC Potassium Chloride/Water 50 ml @ 50 mls/hr 1X ONCE IV Last administered on 03/12at 10:40; Start 03/12/18 at 09:30; Stop 03/12/18 at 10:29; Status DC Sodium Chloride 90 meq/Potassium Acetate 70 meq/ Potassium Phosphate 10 mmol/ Magnesium Sulfate 10 meq/ Multivitamins 10 ml/Chromium/ Copper/Manganese/ Seleni /Zn 1 ml/ Total Parenteral Nutrition/Amino Acids/Dextrose/ Fat Emulsion Intravenous 1,800 ml @ 75 mls/hr TPN CONT IV ; Start 03/12/18 at 22:00; Stop at 22:00; Status DC Sodium Chloride 90 meq/Potassium Chloride 70 meq/ Potassium Phosphate 10 mmol/ Magnesium Sulfate 10 meq/ Multivitamins 10 ml/Chromium/ Copper/Manganese/ Seleni /Zn 1 ml/ Total Parenteral Nutrition/Amino Acids/Dextrose/ Fat Emulsion Intravenous 1,800 ml @ 75 mls/hr TPN CONT IV Last administered on 03/12/18at 21 :41; Start 03/12/18 at 22:00; Stop 03/13/18 at 21:59; Status DC Benzocaine (Hurricaine One) 1 spray 1X ONCE MM ; Start 03/13/18 at 12:45; Stop 03/13/18 at 12:45; Status DC Promethazine HCl/ Codeine (Phenergan With Codeine) 5 ml PRN Q6HRS PRN PO COUGH Last administered on 03/14/18at 08:10; Start 03/13/18 at 12:45 Benzocaine (Hurricaine One) 1 spray 1X ONCE MM ; Start 03/13/18 at 12:45; Stop 03/13/18 at 12:45; Status DC Benzocaine (Hurricaine One) 1 spray 1X ONCE MM Last administered on 03/13/18at 16:11; Start 03/13/18 at 12:45; Stop 03/13/18 at 12:46; Status DC Sodium Chloride 90 meq/Potassium Chloride 70 meq/ Potassium Phosphate 13.6 mmol/ Magnesium Sulfate 10 meq/ Multivitamins 10 ml/Chromium/ Copper/Manganese/ Seleni /Zn 1 ml/ Total Parenteral Nutrition/Amino Acids/Dextrose/ Fat Emulsion Intravenous 1,800 ml @ 75 mls/hr TPN CONT IV Last administered on 03/13/18at 21 :53; Start 03/13/18 at 22:00; Stop 03/14/18 at 21:59; Status DC Propofol 100 ml @ As Directed STK-MED ONCE IV ; Start 03/13/18 at 15:47; Stop at 15:48; Status DC Propofol 100 ml @ 0 mls/hr CONT PRN IV PER PROTOCOL Last administered on at 05:04; Start 03/13/18 at 16:45; Stop 03/14/18 at 17:45; Status DC Hydralazine HCl (Apresoline Inj) 10 mg PRN Q4HRS PRN IVP ELEVATED BP, SEE COMMENTS Last administered on 03/15/18at 11:37; Start 03/14/18 at 09:00 Albuterol/ Ipratropium (Duoneb) 3 ml RTQID NEB Last administered on 03/15/18at 08:27; Start 03/14/18 at 12:00; Stop 03/15/18 at 11:01; Status DC Albuterol/ Ipratropium (Duoneb) 3 ml 1X ONCE NEB Last administered on at 09:36; Start 03/14/18 at 09:30; Stop 03/14/18 at 09:31; Status DC Dexmedetomidine HCl 200 mcg/ Sodium Chloride 50 ml @ 0 mls/hr CONT PRN IV PER PROTOCOL Last administered on 03/14/18at 14:17; Start 03/14/18 at 10:30; Stop 03/15 at 07:33; Status DC Sodium Chloride 500 ml @ 500 mls/hr 1X PRN PRN IV SEE COMMENTS; Start 03/14/18 at 10:30 Atropine Sulfate (ATROPINE 0.5mg SYRINGE) 0.5 mg PRN Q5MIN PRN IV SEE COMMENTS ; Start 03/14/18 at 10:30 Furosemide (Lasix) 40 mg 1X ONCE IVP Last administered on 03/14/18at 10:45; Start 03/14/18 at 10:30; Stop 03/14/18 at 10:31; Status DC Sodium Chloride 90 meq/Potassium Chloride 70 meq/ Potassium Phosphate 13.6 mmol/ Magnesium Sulfate 10 meq/ Multivitamins 10 ml/Chromium/ Copper/Manganese/ Seleni /Zn 1 ml/ Total Parenteral Nutrition/Amino Acids/Dextrose/ Fat Emulsion Intravenous 1,800 ml @ 75 mls/hr TPN CONT IV Last administered on 03/14/18at 22 :33; Start 03/14/18 at 22:00; Stop 03/15/18 at 21:59; Status DC Pantoprazole Sodium (PROTONIX VIAL for IV PUSH) 40 mg BID IVP Last administered on 03/16/18at 09:03; Start 03/15/18 at 09:00 Iohexol (Omnipaque 300 Mg/ml) 75 ml 1X ONCE IV Last administered on 03/15/18at 06:15; Start 03/15/18 at 06:15; Stop 03/15/18 at 06:16; Status DC Iohexol (Omnipaque 240 Mg/ml) 50 ml 1X ONCE PO Last administered on 03/15/18at 06:15; Start 03/15/18 at 06:15; Stop 03/15/18 at 06:16; Status DC Info (CONTRAST GIVEN -- Rx MONITORING) 1 each PRN DAILY PRN MC SEE COMMENTS; Start 03/15/18 at 06:15; Stop 03/17/18 at 06:14 Labetalol HCl (Normodyne) 20 mg PRN Q2HR PRN IVP HYPERTENSION, SEE COMMENTS Last administered on 03/15/18at 09:46; Start 03/15/18 at 09:30 Ipratropium [place] (Atrovent) 0.5 mg 1X ONCE NEB ; Start 03/15/18 at 12:00; Stop 03/15/18 at 12:00; Status DC Ipratropium [place] (Atrovent) 0.5 mg RTQID NEB Last administered on 03/16/18at 11:28; Start 03/15/18 at 12:00 Metoprolol Tartrate (Lopressor Vial) 5 mg Q6HRS IVP Last administered on at 12:56; Start 03/15/18 at 12:00; Stop 03/15/18 at 18:14; Status DC Carvedilol (Coreg) 12.5 mg BIDWMEALS PO Last administered on 03/16/18at 09:03; Start 03/15/18 at 17:00 Sodium Chloride 90 meq/Potassium Chloride 70 meq/ Potassium Phosphate 5 mmol/ Magnesium Sulfate 10 meq/ Multivitamins 10 ml/Chromium/ Copper/Manganese/ Seleni /Zn 1 ml/ Total Parenteral Nutrition/Amino Acids/Dextrose/ Fat Emulsion Intravenous 1,800 ml @ 75 mls/hr TPN CONT IV Last administered on 03/15/18at 21:17; Start 03/15/18 at 22:00; Stop 03/16/18 at 21:59 Phenazopyridine HCl (Pyridium) 200 mg PRN TID PRN PO URINARY PAIN; Start at 11:15 Active Scripts Active Reported Amlodipine Besylate 5 Mg Tablet 5 Mg PO DAILY Omeprazole 40 Mg Capsule.dr 1 Cap PO BID Vitals/I & O Vital Sign - Last 24 Hours 03/15/18 03/15/18 03/15/18 03/15/18 15:00 15:00 16:02 16:24 Temp 98.3 98.3 Pulse 63 106 Resp 18 B/P (MAP) 164/116 (132) 125/59 (81) 145/85 Pulse Ox 93 93 O2 Delivery Nasal Cannula Nasal Cannula O2 Flow Rate 2.0 2.0 03/15/18 03/15/18 03/15/18 03/15/18 19:30 20:00 20:17 22:31 Temp 98.6 98.6 Pulse 98 Resp B/P (MAP) 143/83 (103) Pulse Ox 93 95 O2 Delivery Nasal Cannula Nasal Cannula Nasal Cannula Nasal Cannula O2 Flow Rate 2.0 2.0 2.0 2.0 03/15/18 03/16/18 03/16/18 03/16/18 23:05 03:55 07:00 07:50 Temp 98.3 97.8 98.2 98.3 97.8 98.2 Pulse 96 97 93 Resp 28 18 B/P (MAP) 154/80 (104) 153/71 (98) 154/82 (106) Pulse Ox 91 92 91 O2 Delivery Nasal Cannula Nasal Cannula Nasal Cannula Nasal Cannula O2 Flow Rate 2.0 2.0 2.0 2.0 03/16/18 03/16/18 03/16/18 03/16/18 08:11 09:03 11:00 11:28 Temp 97.7 97.7 Pulse 97 93 Resp 18 B/P (MAP) 154/82 133/76 (95) Pulse Ox 92 90 O2 Delivery Nasal Cannula Nasal Cannula Nasal Cannula O2 Flow Rate 2.0 2.0 2.0 Intake and Output 03/15/18 03/15/18 03/16/18 15:00 23:00 07:00 Intake Total 360 ml Output Total 600 ml 400 ml 100 ml Balance -600 ml -40 ml -100 ml GALA,CHUNMEI MD Mar 16, 2018 14:41
[2018-03-16] MEDS: TPN PER PHARMACY MC PRN (14:53)
[2018-03-16 15:00] VITALS: BP 138/76
[2018-03-16] MEDS: ACETAMINOPHEN 325 MG TABLET. PO PRN ×2 (16:14→20:25)
[2018-03-16] MEDS: MICAFUNGIN 100 MG in IV DEXTROSE 5% 100ML 100 ML IV SCH (16:15)
[2018-03-16 19:35] VITALS: BP 146/77
[2018-03-16] MEDS ORDERED: DEXTROSE 70% IV SCH ×9 (22:00)
[2018-03-16] MEDS ORDERED: TOTAL PARENTERAL NUTRITION IV SCH ×9 (22:00)
[2018-03-16] MEDS ORDERED: AMINO ACIDS IV SCH ×9 (22:00)
[2018-03-16] MEDS ORDERED: [UNRECOGNIZED DRUG - OTHER] IV SCH ×9 (22:00)
[2018-03-16 23:51] VITALS: BP 141/77
[2018-03-17] MEDS: PIPERACILLIN/TAZOBACTAM 3.375 GM in IV NORMAL SALINE 50ML 50 ML IV SCH ×5 (00:19→23:43)
[2018-03-17 03:35] VITALS: BP 156/70
[2018-03-17] MEDS: ACETAMINOPHEN 325 MG TABLET. PO PRN ×2 (03:58→20:26)
[2018-03-17 07:00] VITALS: BP 153/81
[2018-03-17 07:10] LABS: BASO # 0.1 x10^3/uL (0.0-0.2); BASO % 1 % (0-3); EOS # 0.5 x10^3/uL (0.0-0.7); EOS % 5 % (0-3); HEMATOCRIT 36.3 % (39.0-53.0); HEMOGLOBIN 11.9 g/dL (13.0-17.5); LYMPH # 1.7 x10^3/uL (1.0-4.8); LYMPH % 16 % (24-48); MEAN CORPUSCULAR HEMOGLOBIN 31 pg (25-35); MEAN CORPUSCULAR HGB CONC 33 g/dL (31-37); MEAN CORPUSCULAR VOLUME 94 fL (79-100); MONO # 0.7 x10^3/uL (0.0-1.1); MONO % 7 % (0-9); NEUT # 7.6 x10^3uL (1.8-7.7); NEUT % 72 % (31-73); PLATELET COUNT 566 x10^3/uL (140-400); RED BLOOD COUNT 3.87 x10^6/uL (4.30-5.70); RED CELL DISTRIBUTION WIDTH 14.2 % (11.5-14.5); WHITE BLOOD COUNT 10.6 x10^3/uL (4.0-11.0)
[2018-03-17] MEDS: INSULIN LISPRO 300 UNITS/3 ML INSULN.PEN. SQ SCH ×3 (08:00→17:00)
[2018-03-17] MEDS: IPRATROPIUM BROMIDE 0.5 MG/2.5 ML NEBU. NEB SCH ×5 (08:00→18:37)
--- NOTE | 2018-03-17 08:18 | PDOC ---
PULMONARY PROGRESS NOTES Subjective extubated 03/14, on 02, no sob, has occ cough, has snoring, eds, psg cancelled 2/ 2 bronchitis Vitals Vital Signs Date Time Temp Pulse Resp B/P (MAP) Pulse Ox O2 Delivery O2 Flow Rate FiO2 03/17/18 07:37 Room Air 03/17/18 03:35 97.8 87 24 156/70 (98) 94 2.0 97.8 General: Alert, No acute distress Lungs: Clear Cardiovascular: S1, S2 Abdomen: Soft Neuro Exam: Alert Extremities: Other (EDEMA) Skin: Warm Labs Laboratory Tests Test 03/15/18 11:41 03/15/18 17:48 03/15/18 20:57 03/15/18 23:40 Glucose (Fingerstick) 188 mg/dL (70-99) 162 mg/dL (70-99) 136 mg/dL (70-99) Urine Collection Type Unknown Urine Color Yellow Urine Clarity Clear Urine pH 6.5 Urine Specific [place] >=1.030 Urine Protein 100 mg/dL (NEG-TRACE) Urine Glucose (UA) Negative mg/dL (NEG) Urine Ketones (Stick) Negative mg/dL (NEG) Urine Blood Negative (NEG) Urine Nitrite Negative (NEG) Urine Bilirubin Negative (NEG) Urine Urobilinogen Dipstick 0.2 mg/dL (0.2 mg/dL) Urine Leukocyte Esterase Negative (NEG) Urine RBC 11-20 /HPF (0-2) Urine WBC Occ /HPF (0-4) Urine Squamous Epithelial Cells Few /LPF Urine Bacteria 0 /HPF (0-FEW) Urine Mucus Slight /LPF Test 03/16/18 06:15 03/16/18 07:55 03/16/18 11:09 03/16/18 17:28 White Blood Count 11.9 x10^3/uL (4.0-11.0) Red Blood Count 3.88 x10^6/uL (4.30-5.70) Hemoglobin 11.3 g/dL (13.0-17.5) Hematocrit 34.9 % (39.0-53.0) Mean Corpuscular Volume 90 fL (79-100) Mean Corpuscular Hemoglobin 29 pg (25-35) Mean Corpuscular Hemoglobin Concent 33 g/dL (31-37) Red Cell Distribution Width 13.7 % (11.5-14.5) Platelet Count 503 x10^3/uL (140-400) Neutrophils (%) (Auto) 73 % (31-73) Lymphocytes (%) (Auto) 14 % (24-48) Monocytes (%) (Auto) 9 % (0-9) Eosinophils (%) (Auto) 4 % (0-3) Basophils (%) (Auto) 1 % (0-3) Neutrophils # (Auto) 8.7 x10^3uL (1.8-7.7) Lymphocytes # (Auto) 1.6 x10^3/uL (1.0-4.8) Monocytes # (Auto) 1.0 x10^3/uL (0.0-1.1) Eosinophils # (Auto) 0.4 x10^3/uL (0.0-0.7) Basophils # (Auto) 0.1 x10^3/uL (0.0-0.2) Sodium Level 139 mmol/L (136-145) Potassium Level 4.0 mmol/L (3.5-5.1) Chloride Level 104 mmol/L (98-107) Carbon Dioxide Level 28 mmol/L (21-32) Anion Gap 7 (6-14) Blood Urea Nitrogen 17 mg/dL (8-26) Creatinine 0.9 mg/dL (0.7-1.3) Estimated GFR (Cockcroft-Gault) 95.5 BUN/Creatinine Ratio 19 (6-20) Glucose Level 171 mg/dL (70-99) Calcium Level 9.5 mg/dL (8.5-10.1) Phosphorus Level 4.2 mg/dL (2.6-4.7) Magnesium Level 2.0 mg/dL (1.8-2.4) Total Bilirubin 0.3 mg/dL (0.2-1.0) Aspartate Amino Transf (AST/SGOT) 123 U/L (15-37) Alanine Aminotransferase (ALT/SGPT) 118 U/L (16-63) Alkaline Phosphatase 67 U/L (46-116) Total Protein 8.0 g/dL (6.4-8.2) Albumin 2.5 g/dL (3.4-5.0) Albumin/Globulin Ratio 0.5 (1.0-1.7) Glucose (Fingerstick) 158 mg/dL (70-99) 147 mg/dL (70-99) 136 mg/dL (70-99) Test 03/16/18 21:05 03/17/18 06:30 Glucose (Fingerstick) 145 mg/dL (70-99) White Blood Count 10.6 x10^3/uL (4.0-11.0) Red Blood Count 3.87 x10^6/uL (4.30-5.70) Hemoglobin 11.9 g/dL (13.0-17.5) Hematocrit 36.3 % (39.0-53.0) Mean Corpuscular Volume 94 fL (79-100) Mean Corpuscular Hemoglobin 31 pg (25-35) Mean Corpuscular Hemoglobin Concent 33 g/dL (31-37) Red Cell Distribution Width 14.2 % (11.5-14.5) Platelet Count 566 x10^3/uL (140-400) Neutrophils (%) (Auto) 72 % (31-73) Lymphocytes (%) (Auto) 16 % (24-48) Monocytes (%) (Auto) 7 % (0-9) Eosinophils (%) (Auto) 5 % (0-3) Basophils (%) (Auto) 1 % (0-3) Neutrophils # (Auto) 7.6 x10^3uL (1.8-7.7) Lymphocytes # (Auto) 1.7 x10^3/uL (1.0-4.8) Monocytes # (Auto) 0.7 x10^3/uL (0.0-1.1) Eosinophils # (Auto) 0.5 x10^3/uL (0.0-0.7) Basophils # (Auto) 0.1 x10^3/uL (0.0-0.2) Laboratory Tests Test 03/16/18 11:09 03/16/18 17:28 03/16/18 21:05 03/17/18 06:30 Glucose (Fingerstick) 147 mg/dL (70-99) 136 mg/dL (70-99) 145 mg/dL (70-99) White Blood Count 10.6 x10^3/uL (4.0-11.0) Red Blood Count 3.87 x10^6/uL (4.30-5.70) Hemoglobin 11.9 g/dL (13.0-17.5) Hematocrit 36.3 % (39.0-53.0) Mean Corpuscular Volume 94 fL (79-100) Mean Corpuscular Hemoglobin 31 pg (25-35) Mean Corpuscular Hemoglobin Concent 33 g/dL (31-37) Red Cell Distribution Width 14.2 % (11.5-14.5) Platelet Count 566 x10^3/uL (140-400) Neutrophils (%) (Auto) 72 % (31-73) Lymphocytes (%) (Auto) 16 % (24-48) Monocytes (%) (Auto) 7 % (0-9) Eosinophils (%) (Auto) 5 % (0-3) Basophils (%) (Auto) 1 % (0-3) Neutrophils # (Auto) 7.6 x10^3uL (1.8-7.7) Lymphocytes # (Auto) 1.7 x10^3/uL (1.0-4.8) Monocytes # (Auto) 0.7 x10^3/uL (0.0-1.1) Eosinophils # (Auto) 0.5 x10^3/uL (0.0-0.7) Basophils # (Auto) 0.1 x10^3/uL (0.0-0.2) Medications Active Scripts Medications Dose Route/Sig Max Daily Dose Days Date Category Amlodipine Besylate 5 Mg Tablet 5 Mg PO DAILY 03/14/18 Reported Omeprazole 40 Mg Capsule.dr 1 Cap PO BID 03/14/18 Reported Comments CTA CHEST REVIEWED 1. Life support devices in appropriate position. 2. No large central pulmonary embolus. Lobar, segmental, subsegmental pulmonary arteries cannot be evaluated due to limited contrast opacification. 3. Moderate consolidations with air bronchograms in the bilateral lower lobes. Considerations include aspiration, pneumonia, or atelectasis. 4. Persistent diverticulitis of the sigmoid colon. There is a small incompletely formed probable peridiverticular abscess. 5. Fatty infiltration of the liver. Electronically signed by: Akbar Naqvi MD (03/11/2018 11:21 AM) [id number] CXR 03/15 reviewed MILD BILATERAL INFIL Impression . IMPRESSION: 1. Acute respiratory failure, status post code blue. Etiology likely ALI/EARLY ARDS due to diverticulitis . Extubated 03/14 2. Status post code blue patient with spontaneous return of circulation after one defibrillation and 2 minutes of chest compressions. 3. Septic shock.resolved 4. Diverticulitis leading to septic shock. ? abscess/ suspected perf. diverticulitis, clinically improving. Repeat ct abdomen per surgery 5. Metabolic acidosis secondary to code blue, increased work of breathing and renal insufficiency. resolved 6. Morbid obesity. 7. Leukocytosis. 8. Obstructive sleep apnea. 9. Possible aspiration pneumonia. 10. No central PE by CTA, Plan . psg out pt, kranthi the importance of diagnosis and tx discussed, 02 titration increase activity cardiac cath 03/18 PT/ SPEECH ORAL CONTRAST FOR CT ABDOMEN ONCE CLEARED BY SPEECH FOR PO LOVENOX FOR DVT PROPHYLAXIS NO SHUNT ON ECHO NEG VENOUS DOPPLER ANTIBX PER ID, on Zosyn and micafungin FOLLOW SURGERY REC TPN GI PROPH NEBS ATROVENT ONLY, avoid alb, tachycardia D/W RN/PT VERNELL BILLINGSLEY MD Mar 17, 2018 08:18
[2018-03-17 08:33] LABS: CALCIUM 9.1 mg/dL (8.5-10.1); CREATININE 0.8 mg/dL (0.7-1.3); GFR 109.4; POTASSIUM 4.2 mmol/L (3.5-5.1)
--- NOTE | 2018-03-17 08:33 | PDOC ---
Infectious Disease Note Subjective Subjective Doing well Had a good night No nausea/V/SOA/Rash. + BM and pain controlled Vital Sign Vital Signs Vital Signs Date Time Temp Pulse Resp B/P (MAP) Pulse Ox O2 Delivery O2 Flow Rate FiO2 03/17/18 08:25 96 Room Air 03/17/18 03:35 97.8 87 24 156/70 (98) 2.0 97.8 Physical Exam PHYSICAL EXAM GENERAL: NAD, alert, looks really well, in bed HENT: PERRLA, Oc/Op -clear NECK: no JVD LUNGS: CTA CV: S1/S2 ABDOMEN: Obese, hypoactive but + bowel sounds, soft, no rebound/guard. less distension EXT: No gross edema or cyanosis. right groin dressing clean SKIN: warm without rash NEURO: - alert/appropriate/pleasant Right PICC line - clean Labs Lab Laboratory Tests Test 03/16/18 11:09 03/16/18 17:28 03/16/18 21:05 03/17/18 06:30 Glucose (Fingerstick) 147 mg/dL (70-99) 136 mg/dL (70-99) 145 mg/dL (70-99) White Blood Count 10.6 x10^3/uL (4.0-11.0) Red Blood Count 3.87 x10^6/uL (4.30-5.70) Hemoglobin 11.9 g/dL (13.0-17.5) Hematocrit 36.3 % (39.0-53.0) Mean Corpuscular Volume 94 fL (79-100) Mean Corpuscular Hemoglobin 31 pg (25-35) Mean Corpuscular Hemoglobin Concent 33 g/dL (31-37) Red Cell Distribution Width 14.2 % (11.5-14.5) Platelet Count 566 x10^3/uL (140-400) Neutrophils (%) (Auto) 72 % (31-73) Lymphocytes (%) (Auto) 16 % (24-48) Monocytes (%) (Auto) 7 % (0-9) Eosinophils (%) (Auto) 5 % (0-3) Basophils (%) (Auto) 1 % (0-3) Neutrophils # (Auto) 7.6 x10^3uL (1.8-7.7) Lymphocytes # (Auto) 1.7 x10^3/uL (1.0-4.8) Monocytes # (Auto) 0.7 x10^3/uL (0.0-1.1) Eosinophils # (Auto) 0.5 x10^3/uL (0.0-0.7) Basophils # (Auto) 0.1 x10^3/uL (0.0-0.2) Test 03/17/18 07:47 Glucose (Fingerstick) 121 mg/dL (70-99) Micro CT 03/15 Impression: 1. Ongoing sigmoid diverticulitis. One small abscess posterior to the proximal-mid sigmoid colon appears smaller, measuring 1.6 cm in maximum dimension (previously 2.6 cm). There is an adjacent focus of gas, compatible with contained perforation. 2. Pouch of [place] demonstrates 3.5 x 2.3 cm peripherally enhancing fluid collection, favored represent developing abscess. 3. Stranding surrounding the urinary bladder. Correlate for cystitis. Small amount of gas is seen within the urinary bladder, probably iatrogenic given recent Galvan catheter. 4. Small right and minimal left pleural effusions. Associated atelectasis at the lung bases. Microbiology 03/09/18 Blood Culture - Preliminary, Resulted NO GROWTH AFTER [address] 03/11 IMPRESSION: 1. Life support devices in appropriate position. 2. No large central pulmonary embolus. Lobar, segmental, subsegmental pulmonary arteries cannot be evaluated due to limited contrast opacification. 3. Moderate consolidations with air bronchograms in the bilateral lower lobes. Considerations include aspiration, pneumonia, or atelectasis. 4. Persistent diverticulitis of the sigmoid colon. There is a small incompletely formed probable peridiverticular abscess. 5. Fatty infiltration of the liver. Objective Assessment Fever - better s/p code blue, 03/09 Sepsis w/ hypotension requiring vasopressor support previously but now off. - BC from 03/07 NGTD. Fever curve improving Leukocytosis - better Acute diverticulitis with microperforation -gen surgery following, on bowel rest - developing abscess on CT Allergy Cipro - rash RONNY Acute respiratory failure ? ARDS developing -improving per Dr. Galo Substance abuse. urine tox + cocaine and marijuana 03/07 & 03/09 PUD / GERD Etoh dependence Morbid obesity, BMI 41 Hypertension Recently hosp [facility] & EGD- ulcers Rx on omeprazole per Plan Plan of Care Clinically he is much improved Continue Zosyn and micafungin Await IR eval of CT Cardiac cath 03/18 Monitor labs/VSS D/w D/w RN LAURA HARMAN MD Mar 17, 2018 08:33
[2018-03-17] MEDS: ENOXAPARIN 40 MG/0.4 ML SYRINGE. SQ SCH ×2 (09:07→20:06)
[2018-03-17] MEDS: CARVEDILOL 12.5 MG TABLET. PO SCH ×2 (09:08→17:53)
[2018-03-17] MEDS: PANTOPRAZOLE IV PUSH 40 MG VIAL. IVP SCH (09:09)
[2018-03-17 11:00] VITALS: BP 125/80
--- NOTE | 2018-03-17 13:28 | PDOC ---
PROGRESS NOTES Subjective Subjective doing well, no pain Objective Objective Vital Signs Date Time Temp Pulse Resp B/P (MAP) Pulse Ox O2 Delivery O2 Flow Rate FiO2 03/17/18 12:11 Room Air 03/17/18 11:00 98.5 85 24 125/80 (95) 96 2.0 98.5 Intake and Output 03/17/18 07:00 Intake Total 1175 ml Output Total 1475 ml Balance -300 ml Intake Oral 600 ml IV Total 575 ml Output Urine Total 1475 ml Physical Exam Abdomen: Soft, No tenderness Heart: Regular rate Extremities: No clubbing, No cyanosis General: Alert, Oriented X3 HEENT: Atraumatic Lungs: Clear to auscultation Assessment Assessment Problems Medical Problems: (1) Diverticulitis of colon with perforation Status: Acute Plan Plan of Care Good clinical improvement; follow clinically; after cath can advance diet and move toward dc; antibiotics per ID Comment Review of Relevant I have reviewed the following items kalin (where applicable) has been applied. Labs Laboratory Tests Test 03/15/18 17:48 03/15/18 20:57 03/15/18 23:40 03/16/18 06:15 Glucose (Fingerstick) 162 mg/dL (70-99) 136 mg/dL (70-99) Urine Collection Type Unknown Urine Color Yellow Urine Clarity Clear Urine pH 6.5 Urine Specific [place] >=1.030 Urine Protein 100 mg/dL (NEG-TRACE) Urine Glucose (UA) Negative mg/dL (NEG) Urine Ketones (Stick) Negative mg/dL (NEG) Urine Blood Negative (NEG) Urine Nitrite Negative (NEG) Urine Bilirubin Negative (NEG) Urine Urobilinogen Dipstick 0.2 mg/dL (0.2 mg/dL) Urine Leukocyte Esterase Negative (NEG) Urine RBC 11-20 /HPF (0-2) Urine WBC Occ /HPF (0-4) Urine Squamous Epithelial Cells Few /LPF Urine Bacteria 0 /HPF (0-FEW) Urine Mucus Slight /LPF White Blood Count 11.9 x10^3/uL (4.0-11.0) Red Blood Count 3.88 x10^6/uL (4.30-5.70) Hemoglobin 11.3 g/dL (13.0-17.5) Hematocrit 34.9 % (39.0-53.0) Mean Corpuscular Volume 90 fL (79-100) Mean Corpuscular Hemoglobin 29 pg (25-35) Mean Corpuscular Hemoglobin Concent 33 g/dL (31-37) Red Cell Distribution Width 13.7 % (11.5-14.5) Platelet Count 503 x10^3/uL (140-400) Neutrophils (%) (Auto) 73 % (31-73) Lymphocytes (%) (Auto) 14 % (24-48) Monocytes (%) (Auto) 9 % (0-9) Eosinophils (%) (Auto) 4 % (0-3) Basophils (%) (Auto) 1 % (0-3) Neutrophils # (Auto) 8.7 x10^3uL (1.8-7.7) Lymphocytes # (Auto) 1.6 x10^3/uL (1.0-4.8) Monocytes # (Auto) 1.0 x10^3/uL (0.0-1.1) Eosinophils # (Auto) 0.4 x10^3/uL (0.0-0.7) Basophils # (Auto) 0.1 x10^3/uL (0.0-0.2) Sodium Level 139 mmol/L (136-145) Potassium Level 4.0 mmol/L (3.5-5.1) Chloride Level 104 mmol/L (98-107) Carbon Dioxide Level 28 mmol/L (21-32) Anion Gap 7 (6-14) Blood Urea Nitrogen 17 mg/dL (8-26) Creatinine 0.9 mg/dL (0.7-1.3) Estimated GFR (Cockcroft-Gault) 95.5 BUN/Creatinine Ratio 19 (6-20) Glucose Level 171 mg/dL (70-99) Calcium Level 9.5 mg/dL (8.5-10.1) Phosphorus Level 4.2 mg/dL (2.6-4.7) Magnesium Level 2.0 mg/dL (1.8-2.4) Total Bilirubin 0.3 mg/dL (0.2-1.0) Aspartate Amino Transf (AST/SGOT) 123 U/L (15-37) Alanine Aminotransferase (ALT/SGPT) 118 U/L (16-63) Alkaline Phosphatase 67 U/L (46-116) Total Protein 8.0 g/dL (6.4-8.2) Albumin 2.5 g/dL (3.4-5.0) Albumin/Globulin Ratio 0.5 (1.0-1.7) Test 03/16/18 07:55 03/16/18 11:09 03/16/18 17:28 03/16/18 21:05 Glucose (Fingerstick) 158 mg/dL (70-99) 147 mg/dL (70-99) 136 mg/dL (70-99) 145 mg/dL (70-99) Test 03/17/18 06:30 03/17/18 07:47 03/17/18 08:11 03/17/18 11:15 White Blood Count 10.6 x10^3/uL (4.0-11.0) Red Blood Count 3.87 x10^6/uL (4.30-5.70) Hemoglobin 11.9 g/dL (13.0-17.5) Hematocrit 36.3 % (39.0-53.0) Mean Corpuscular Volume 94 fL (79-100) Mean Corpuscular Hemoglobin 31 pg (25-35) Mean Corpuscular Hemoglobin Concent 33 g/dL (31-37) Red Cell Distribution Width 14.2 % (11.5-14.5) Platelet Count 566 x10^3/uL (140-400) Neutrophils (%) (Auto) 72 % (31-73) Lymphocytes (%) (Auto) 16 % (24-48) Monocytes (%) (Auto) 7 % (0-9) Eosinophils (%) (Auto) 5 % (0-3) Basophils (%) (Auto) 1 % (0-3) Neutrophils # (Auto) 7.6 x10^3uL (1.8-7.7) Lymphocytes # (Auto) 1.7 x10^3/uL (1.0-4.8) Monocytes # (Auto) 0.7 x10^3/uL (0.0-1.1) Eosinophils # (Auto) 0.5 x10^3/uL (0.0-0.7) Basophils # (Auto) 0.1 x10^3/uL (0.0-0.2) Glucose (Fingerstick) 121 mg/dL (70-99) 126 mg/dL (70-99) Sodium Level 138 mmol/L (136-145) Potassium Level 4.2 mmol/L (3.5-5.1) Chloride Level 103 mmol/L (98-107) Carbon Dioxide Level 26 mmol/L (21-32) Anion Gap 9 (6-14) Blood Urea Nitrogen 18 mg/dL (8-26) Creatinine 0.8 mg/dL (0.7-1.3) Estimated GFR (Cockcroft-Gault) 109.4 Glucose Level 124 mg/dL (70-99) Calcium Level 9.1 mg/dL (8.5-10.1) Laboratory Tests Test 03/16/18 17:28 03/16/18 21:05 03/17/18 06:30 03/17/18 07:47 Glucose (Fingerstick) 136 mg/dL (70-99) 145 mg/dL (70-99) 121 mg/dL (70-99) White Blood Count 10.6 x10^3/uL (4.0-11.0) Red Blood Count 3.87 x10^6/uL (4.30-5.70) Hemoglobin 11.9 g/dL (13.0-17.5) Hematocrit 36.3 % (39.0-53.0) Mean Corpuscular Volume 94 fL (79-100) Mean Corpuscular Hemoglobin 31 pg (25-35) Mean Corpuscular Hemoglobin Concent 33 g/dL (31-37) Red Cell Distribution Width 14.2 % (11.5-14.5) Platelet Count 566 x10^3/uL (140-400) Neutrophils (%) (Auto) 72 % (31-73) Lymphocytes (%) (Auto) 16 % (24-48) Monocytes (%) (Auto) 7 % (0-9) Eosinophils (%) (Auto) 5 % (0-3) Basophils (%) (Auto) 1 % (0-3) Neutrophils # (Auto) 7.6 x10^3uL (1.8-7.7) Lymphocytes # (Auto) 1.7 x10^3/uL (1.0-4.8) Monocytes # (Auto) 0.7 x10^3/uL (0.0-1.1) Eosinophils # (Auto) 0.5 x10^3/uL (0.0-0.7) Basophils # (Auto) 0.1 x10^3/uL (0.0-0.2) Test 03/17/18 08:11 03/17/18 11:15 Sodium Level 138 mmol/L (136-145) Potassium Level 4.2 mmol/L (3.5-5.1) Chloride Level 103 mmol/L (98-107) Carbon Dioxide Level 26 mmol/L (21-32) Anion Gap 9 (6-14) Blood Urea Nitrogen 18 mg/dL (8-26) Creatinine 0.8 mg/dL (0.7-1.3) Estimated GFR (Cockcroft-Gault) 109.4 Glucose Level 124 mg/dL (70-99) Calcium Level 9.1 mg/dL (8.5-10.1) Glucose (Fingerstick) 126 mg/dL (70-99) Microbiology 03/09/18 Blood Culture - Final, Complete NO GROWTH AFTER 5 DAYS Medications Current Medications Sodium Chloride (Normal Saline Flush) 3 ml QSHIFT PRN IV AFTER MEDS AND BLOOD DRAWS; Start 03/07/18 at 11:00 Sodium Chloride 1,000 ml @ 1,000 mls/hr Q1H IV Last administered on 03/07/18at 11:32; Start 03/07/18 at 11:00; Stop 03/07/18 at 11:59; Status DC Iohexol (Omnipaque 300 Mg/ml) 75 ml 1X ONCE IV Last administered on 03/07/18at 12:46; Start 03/07/18 at 11:15; Stop 03/07/18 at 11:16; Status DC Info (CONTRAST GIVEN -- Rx MONITORING) 1 each PRN DAILY PRN MC SEE COMMENTS; Start 03/07/18 at 11:15; Stop 03/09/18 at 11:14; Status DC Sodium Chloride 1,000 ml @ 1,000 mls/hr 1X ONCE IV Last administered on at 12:37; Start 03/07/18 at 12:00; Stop 03/07/18 at 12:59; Status DC Fentanyl Citrate (Fentanyl 2ml Vial) 50 mcg 1X ONCE IV Last administered on 03/07/18at 13:07; Start 03/07/18 at 13:00; Stop 03/07/18 at 13:01; Status DC Metronidazole 100 ml @ 100 mls/hr 1X ONCE IV ; Start 03/07/18 at 13:30; Stop at 14:29; Status DC Ciprofloxacin/ Dextrose 200 ml @ 200 mls/hr ONCE STAT IV Last administered on 03/07/18at 13:42; Start 03/07/18 at 13:12; Stop 03/07/18 at 14:11; Status DC Piperacillin Sod/ Tazobactam Sod 3.375 gm/Sodium Chloride 50 ml @ 100 mls/hr 1X ONCE IV Last administered on 03/07/18at 14:43; Start 03/07/18 at 14:30; Stop 03/07/18 at 14:59; Status DC Diphenhydramine HCl (Benadryl) 50 mg 1X ONCE IVP Last administered on at 14:33; Start 03/07/18 at 14:15; Stop 03/07/18 at 14:16; Status DC Fentanyl Citrate (Fentanyl 2ml Vial) 25 mcg 1X ONCE IV ; Start 03/07/18 at 14:15 ; Stop 03/07/18 at 14:16; Status Cancel Morphine Sulfate (Morphine Sulfate) 4 mg 1X ONCE IV Last administered on at 14:35; Start 03/07/18 at 14:30; Stop 03/07/18 at 14:31; Status DC Ondansetron HCl (Zofran) 4 mg PRN Q8HRS PRN IV NAUSEA/VOMITING; Start 03/07/18 at 14:30; Stop 03/08/18 at 14:29; Status DC Morphine Sulfate (Morphine Sulfate) 4 mg PRN Q2HR PRN IV PAIN Last administered on 03/08/18at 08:20; Start 03/07/18 at 14:30; Stop 03/08/18 at 14:29; Status DC Piperacillin Sod/ Tazobactam Sod 3.375 gm/Sodium Chloride 50 ml @ 100 mls/hr Q6HRS IV Last administered on 03/17/18at 12:02; Start 03/07/18 at 18:00 Metronidazole 100 ml @ 100 mls/hr Q8HRS IV Last administered on 03/09/18at 11:19 ; Start 03/07/18 at 22:00; Stop 03/09/18 at 15:10; Status DC Sodium Chloride 500 ml @ 500 mls/hr 1X ONCE IV Last administered on 03/07/18at 16:45; Start 03/07/18 at 16:45; Stop 03/07/18 at 17:44; Status DC Amino Acids/ Glycerin/ Electrolytes 1,000 ml @ 80 mls/hr [id number] IV Last administered on 03/11/18at 07:47; Start 03/07/18 at 16:45; Stop 03/11/18 at 20:21; Status DC Acetaminophen (Tylenol) 650 mg PRN Q6HRS PRN PO fever Last administered on 07/23at 03:58; Start 03/07/18 at 18:00 Pantoprazole Sodium (PROTONIX VIAL for IV PUSH) 40 mg DAILYAC IVP Last administered on 03/14/18at 08:10; Start 03/08/18 at 07:45; Stop 03/14/18 at 17:45; Status DC Morphine Sulfate (Morphine Sulfate) 4 mg PRN Q2HR PRN IV MODRATE-SEVERE PAIN 2ND CHOICE Last administered on 03/15/18at 22:01; Start 03/08/18 at 14:45 Lorazepam (Ativan) 1 mg PRN Q4HRS PRN IV ANXIETY / AGITATION Last administered on 03/17/18at 04:02; Start 03/08/18 at 20:30 Ondansetron HCl (Zofran) 4 mg PRN Q6HRS PRN IV NAUSEA/VOMITING 1ST CHOICE Last administered on 03/14/18at 12:16; Start 03/09/18 at 02:00 Etomidate (Amidate) 20 mg STK-MED ONCE IV ; Start 03/09/18 at 06:55; Stop at 06:56; Status DC Norepinephrine Bitartrate 250 ml @ As Directed STK-MED ONCE IV ; Start 03/09/18 at 06:55; Stop 03/09/18 at 06:56; Status DC Midazolam HCl (Versed) 5 mg STK-MED ONCE .ROUTE ; Start 03/09/18 at 06:55; Stop 03/09/18 at 06:56; Status DC Fentanyl Citrate (Fentanyl 2ml Vial) 100 mcg STK-MED ONCE .ROUTE ; Start at 06:55; Stop 03/09/18 at 06:56; Status DC Succinylcholine Chloride (Anectine) 200 mg STK-MED ONCE .ROUTE ; Start 03/09/18 at 06:56; Stop 03/09/18 at 06:57; Status DC Fentanyl Citrate 30 ml @ 0 mls/hr CONT PRN IV PER PROTOCOL Last administered on 03/13/18at 03:06; Start 03/09/18 at 07:00; Stop 03/13/18 at 16:35; Status DC Fentanyl Citrate (Fentanyl 2ml Vial) 25 mcg PRN Q1HR PRN IV MILD PAIN; Start at 07:00 Fentanyl Citrate (Fentanyl 2ml Vial) 50 mcg PRN Q1HR PRN IV MOD TO SEVERE PAIN ; Start 03/09/18 at 07:00 Chlorhexidine Gluconate (Peridex) 15 ml BID MM Last administered on 03/14/18at 08 :11; Start 03/09/18 at 09:00; Stop 03/15/18 at 07:33; Status DC Midazolam HCl (Versed) 2 mg PRN Q30MIN PRN IV SEDATION; Start 03/09/18 at 07:00 ; Stop 03/10/18 at 10:26; Status DC Midazolam HCl 100 ml @ 0 mls/hr CONT PRN IV PER PROTOCOL Last administered on at 14:07; Start 03/09/18 at 07:00; Stop 03/13/18 at 16:35; Status DC Enoxaparin Sodium (Lovenox 40mg Syringe) 40 mg Q12H SQ Last administered on 03/10at 09:31; Start 03/09/18 at 09:00; Stop 03/10/18 at 12:01; Status DC Sodium Chloride 1,000 ml @ 75 mls/hr [id number] IV Last administered on 03/14/18at 02:48; Start 03/09/18 at 10:15; Stop 03/14/18 at 10:32; Status DC Sodium Chloride 1,000 ml @ 1,000 mls/hr 1X ONCE IV Last administered on at 10:15; Start 03/09/18 at 10:15; Stop 03/09/18 at 11:14; Status DC Norepinephrine Bitartrate 250 ml @ As Directed STK-MED ONCE IV ; Start 03/09/18 at 10:37; Stop 03/09/18 at 10:38; Status DC Phenylephrine HCl 20 mg/Sodium Chloride 252 ml @ 22.68 mls/ hr 1X ONCE IV ; Start 03/09/18 at 10:45; Stop 03/09/18 at 21:51; Status DC Iohexol (Omnipaque 300 Mg/ml) 75 ml 1X ONCE IV ; Start 03/09/18 at 11:30; Stop 03/09/18 at 11:35; Status DC Micafungin Sodium 100 mg/Dextrose 100 ml @ 100 mls/hr Q24H IV Last administered on 03/16/18at 16:15; Start 03/09/18 at 16:00 Linezolid/Dextrose 300 ml @ 300 mls/hr Q12H IV Last administered on 03/14/18at 04:58; Start 03/09/18 at 17:00; Stop 03/14/18 at 09:14; Status DC Norepinephrine Bitartrate 250 ml @ 1.875 mls/ hr CONT PRN IV SEE I/O RECORD Last administered on 03/09/18at 16:18; Start 03/09/18 at 16:00; Stop 03/15/18 at 12 :46; Status DC Furosemide (Lasix) 40 mg 1X ONCE IVP Last administered on 03/10/18at 08:49; Start 03/10/18 at 09:00; Stop 03/10/18 at 09:01; Status DC Perflutren Protein Type A Microsphe (Optison) 0.66 mg STK-MED ONCE IV ; Start at 10:23; Stop 03/10/18 at 10:25; Status DC Enoxaparin Sodium (Lovenox Per Pharmacy Treatment Dosing) 1 each PRN DAILY PRN MC SEE COMMENTS; Start 03/10/18 at 12:00; Stop 03/11/18 at 12:50; Status DC Enoxaparin Sodium (Lovenox 150mg Syringe) 130 mg Q12H SQ Last administered on at 07:48; Start 03/10/18 at 21:00; Stop 03/11/18 at 12:51; Status DC Enoxaparin Sodium (Lovenox 100mg Syringe) 90 mg 1X ONCE SQ Last administered on 03/10/18at 13:53; Start 03/10/18 at 12:30; Stop 03/10/18 at 12:31; Status DC Perflutren Protein Type A Microsphe (Optison) 0.66 mg 1X ONCE IV Last administered on 03/10/18at 12:55; Start 03/10/18 at 13:00; Stop 03/10/18 at 13:01; Status DC Iohexol (Omnipaque 300 Mg/ml) 75 ml 1X ONCE IV Last administered on 03/11/18at 10:00; Start 03/11/18 at 09:00; Stop 03/11/18 at 09:01; Status DC Info (CONTRAST GIVEN -- Rx MONITORING) 1 each PRN DAILY PRN MC SEE COMMENTS; Start 03/11/18 at 09:00; Stop 03/13/18 at 08:59; Status DC Norepinephrine Bitartrate (Levophed 8mg/ 250ml Premix Drip) 8 mg STK-MED ONCE IV ; Start 03/09/18 at 07:00; Stop 03/11/18 at 08:58; Status DC Insulin Human Lispro (HumaLOG) 0-5 UNITS TIDWMEALS SQ Last administered on 03/16at 09:13; Start 03/11/18 at 12:00 Dextrose (Dextrose 50%-Water Syringe) 12.5 gm PRN Q15MIN PRN IV SEE COMMENTS; Start 03/11/18 at 09:15 Potassium Chloride/Water 50 ml @ 50 mls/hr 1X ONCE IV Last administered on 03/11at 09:43; Start 03/11/18 at 10:00; Stop 03/11/18 at 10:59; Status DC Info (Anti-Coagulation Monitoring By Pharmacy) 1 each PRN DAILY PRN MC SEE COMMENTS; Start 03/11/18 at 09:30; Stop 03/11/18 at 12:51; Status DC Info (Tpn Per Pharmacy) 1 each PRN DAILY PRN MC SEE COMMENTS Last administered on 03/16/18at 14:53; Start 03/11/18 at 11:15 Magnesium Sulfate 50 ml @ 25 mls/hr 1X ONCE IV Last administered on 03/11/18at 15:09; Start 03/11/18 at 16:00; Stop 03/11/18 at 17:59; Status DC Potassium Phosphate 13.6 mmol/Dextrose 104.5333 ml @ 52.267 m... ONCE ONCE IV Last administered on 03/11/18at 17:11; Start 03/11/18 at 18:00; Stop 03/11/18 at 19:59; Status DC Norepinephrine Bitartrate (Levophed 8mg/ 250ml Premix Drip) 8 mg STK-MED ONCE IV ; Start 03/09/18 at 11:00; Stop 03/11/18 at 12:37; Status DC Enoxaparin Sodium (Lovenox 40mg Syringe) 40 mg Q12HR SQ Last administered on 07/23at 09:07; Start 03/11/18 at 21:00 Sodium Chloride 90 meq/Potassium Chloride 50 meq/ Potassium Phosphate 13.6 mmol/ Magnesium Sulfate 10 meq/ Multivitamins 10 ml/Chromium/ Copper/Manganese/ Seleni /Zn 1 ml/ Total Parenteral Nutrition/Amino Acids/Dextrose/ Fat Emulsion Intravenous 1,800 ml @ 75 mls/hr TPN CONT IV Last administered on 03/11/18at 21 :44; Start 03/11/18 at 22:00; Stop 03/12/18 at 21:59; Status DC Potassium Chloride/Water 50 ml @ 50 mls/hr 1X ONCE IV Last administered on 03/12at 10:40; Start 03/12/18 at 09:30; Stop 03/12/18 at 10:29; Status DC Sodium Chloride 90 meq/Potassium Acetate 70 meq/ Potassium Phosphate 10 mmol/ Magnesium Sulfate 10 meq/ Multivitamins 10 ml/Chromium/ Copper/Manganese/ Seleni /Zn 1 ml/ Total Parenteral Nutrition/Amino Acids/Dextrose/ Fat Emulsion Intravenous 1,800 ml @ 75 mls/hr TPN CONT IV ; Start 03/12/18 at 22:00; Stop at 22:00; Status DC Sodium Chloride 90 meq/Potassium Chloride 70 meq/ Potassium Phosphate 10 mmol/ Magnesium Sulfate 10 meq/ Multivitamins 10 ml/Chromium/ Copper/Manganese/ Seleni /Zn 1 ml/ Total Parenteral Nutrition/Amino Acids/Dextrose/ Fat Emulsion Intravenous 1,800 ml @ 75 mls/hr TPN CONT IV Last administered on 03/12/18at 21 :41; Start 03/12/18 at 22:00; Stop 03/13/18 at 21:59; Status DC Benzocaine (Hurricaine One) 1 spray 1X ONCE MM ; Start 03/13/18 at 12:45; Stop 03/13/18 at 12:45; Status DC Promethazine HCl/ Codeine (Phenergan With Codeine) 5 ml PRN Q6HRS PRN PO COUGH Last administered on 03/14/18at 08:10; Start 03/13/18 at 12:45 Benzocaine (Hurricaine One) 1 spray 1X ONCE MM ; Start 03/13/18 at 12:45; Stop 03/13/18 at 12:45; Status DC Benzocaine (Hurricaine One) 1 spray 1X ONCE MM Last administered on 03/13/18at 16:11; Start 03/13/18 at 12:45; Stop 03/13/18 at 12:46; Status DC Sodium Chloride 90 meq/Potassium Chloride 70 meq/ Potassium Phosphate 13.6 mmol/ Magnesium Sulfate 10 meq/ Multivitamins 10 ml/Chromium/ Copper/Manganese/ Seleni /Zn 1 ml/ Total Parenteral Nutrition/Amino Acids/Dextrose/ Fat Emulsion Intravenous 1,800 ml @ 75 mls/hr TPN CONT IV Last administered on 03/13/18at 21 :53; Start 03/13/18 at 22:00; Stop 03/14/18 at 21:59; Status DC Propofol 100 ml @ As Directed STK-MED ONCE IV ; Start 03/13/18 at 15:47; Stop at 15:48; Status DC Propofol 100 ml @ 0 mls/hr CONT PRN IV PER PROTOCOL Last administered on at 05:04; Start 03/13/18 at 16:45; Stop 03/14/18 at 17:45; Status DC Hydralazine HCl (Apresoline Inj) 10 mg PRN Q4HRS PRN IVP ELEVATED BP, SEE COMMENTS Last administered on 03/15/18at 11:37; Start 03/14/18 at 09:00 Albuterol/ Ipratropium (Duoneb) 3 ml RTQID NEB Last administered on 03/15/18at 08:27; Start 03/14/18 at 12:00; Stop 03/15/18 at 11:01; Status DC Albuterol/ Ipratropium (Duoneb) 3 ml 1X ONCE NEB Last administered on at 09:36; Start 03/14/18 at 09:30; Stop 03/14/18 at 09:31; Status DC Dexmedetomidine HCl 200 mcg/ Sodium Chloride 50 ml @ 0 mls/hr CONT PRN IV PER PROTOCOL Last administered on 03/14/18at 14:17; Start 03/14/18 at 10:30; Stop 03/15 at 07:33; Status DC Sodium Chloride 500 ml @ 500 mls/hr 1X PRN PRN IV SEE COMMENTS; Start 03/14/18 at 10:30 Atropine Sulfate (ATROPINE 0.5mg SYRINGE) 0.5 mg PRN Q5MIN PRN IV SEE COMMENTS ; Start 03/14/18 at 10:30 Furosemide (Lasix) 40 mg 1X ONCE IVP Last administered on 03/14/18at 10:45; Start 03/14/18 at 10:30; Stop 03/14/18 at 10:31; Status DC Sodium Chloride 90 meq/Potassium Chloride 70 meq/ Potassium Phosphate 13.6 mmol/ Magnesium Sulfate 10 meq/ Multivitamins 10 ml/Chromium/ Copper/Manganese/ Seleni /Zn 1 ml/ Total Parenteral Nutrition/Amino Acids/Dextrose/ Fat Emulsion Intravenous 1,800 ml @ 75 mls/hr TPN CONT IV Last administered on 03/14/18at 22 :33; Start 03/14/18 at 22:00; Stop 03/15/18 at 21:59; Status DC Pantoprazole Sodium (PROTONIX VIAL for IV PUSH) 40 mg BID IVP Last administered on 03/17/18at 09:09; Start 03/15/18 at 09:00 Iohexol (Omnipaque 300 Mg/ml) 75 ml 1X ONCE IV Last administered on 03/15/18at 06:15; Start 03/15/18 at 06:15; Stop 03/15/18 at 06:16; Status DC Iohexol (Omnipaque 240 Mg/ml) 50 ml 1X ONCE PO Last administered on 03/15/18at 06:15; Start 03/15/18 at 06:15; Stop 03/15/18 at 06:16; Status DC Info (CONTRAST GIVEN -- Rx MONITORING) 1 each PRN DAILY PRN MC SEE COMMENTS; Start 03/15/18 at 06:15; Stop 03/17/18 at 06:14; Status DC Labetalol HCl (Normodyne) 20 mg PRN Q2HR PRN IVP HYPERTENSION, SEE COMMENTS Last administered on 03/15/18at 09:46; Start 03/15/18 at 09:30 Ipratropium White (Atrovent) 0.5 mg 1X ONCE NEB ; Start 03/15/18 at 12:00; Stop 03/15/18 at 12:00; Status DC Ipratropium White (Atrovent) 0.5 mg RTQID NEB Last administered on 03/17/18at 12:11; Start 03/15/18 at 12:00 Metoprolol Tartrate (Lopressor Vial) 5 mg Q6HRS IVP Last administered on at 12:56; Start 03/15/18 at 12:00; Stop 03/15/18 at 18:14; Status DC Carvedilol (Coreg) 12.5 mg BIDWMEALS PO Last administered on 03/17/18at 09:08; Start 03/15/18 at 17:00 Sodium Chloride 90 meq/Potassium Chloride 70 meq/ Potassium Phosphate 5 mmol/ Magnesium Sulfate 10 meq/ Multivitamins 10 ml/Chromium/ Copper/Manganese/ Seleni /Zn 1 ml/ Total Parenteral Nutrition/Amino Acids/Dextrose/ Fat Emulsion Intravenous 1,800 ml @ 75 mls/hr TPN CONT IV Last administered on 03/15/18at 21:17; Start 03/15/18 at 22:00; Stop 03/16/18 at 21:59; Status DC Phenazopyridine HCl (Pyridium) 200 mg PRN TID PRN PO URINARY PAIN; Start at 11:15 Sodium Chloride 90 meq/Potassium Chloride 70 meq/ Potassium Phosphate 5 mmol/ Magnesium Sulfate 10 meq/ Multivitamins 10 ml/Chromium/ Copper/Manganese/ Seleni /Zn 1 ml/ Total Parenteral Nutrition/Amino Acids/Dextrose/ Fat Emulsion Intravenous 1,800 ml @ 75 mls/hr TPN CONT IV Last administered on 03/16/18at 20:27; Start 03/16/18 at 22:00; Stop 03/17/18 at 21:59 Active Scripts Active Reported Amlodipine Besylate 5 Mg Tablet 5 Mg PO DAILY Omeprazole 40 Mg Capsule.dr 1 Cap PO BID Vitals/I & O Vital Sign - Last 24 Hours 03/16/18 03/16/18 03/16/18 03/16/18 15:00 15:21 16:14 19:35 Temp 97.9 98.2 97.9 98.2 Pulse 84 86 80 Resp 18 26 B/P (MAP) 138/76 (96) 138/76 146/77 (100) Pulse Ox 92 93 O2 Delivery Nasal Cannula Nasal Cannula Room Air O2 Flow Rate 2.0 2.0 03/16/18 03/16/18 03/16/18 03/17/18 19:54 20:14 23:51 03:35 Temp 98.4 97.8 98.4 97.8 Pulse 80 87 Resp 24 B/P (MAP) 141/77 (98) 156/70 (98) Pulse Ox 96 94 94 O2 Delivery Nasal Cannula Room Air Nasal Cannula Nasal Cannula O2 Flow Rate 2.0 2.0 2.0 03/17/18 03/17/18 03/17/18 03/17/18 07:00 07:37 08:25 09:08 Temp 97.9 97.9 Pulse 87 85 Resp 24 B/P (MAP) 153/81 (105) 153/81 Pulse Ox 92 96 O2 Delivery Nasal Cannula Room Air Room Air O2 Flow Rate 2.0 03/17/18 03/17/18 11:00 12:11 Temp 98.5 98.5 Pulse 85 Resp 24 B/P (MAP) 125/80 (95) Pulse Ox 96 O2 Delivery Nasal Cannula Room Air O2 Flow Rate 2.0 Intake and Output 03/16/18 03/16/18 03/17/18 15:00 23:00 07:00 Intake Total 500 ml 675 ml Output Total 750 ml 725 ml Balance -250 ml -50 ml EVAN MCGHEE MD Mar 17, 2018 13:28
--- NOTE | 2018-03-17 14:20 | PDOC ---
PROGRESS NOTES Chief Complaint Chief Complaint status post cardiac arrest, nonsustained V. 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 extubated 03/14, on NC PICC line then changed PPN to TPN 75cc/h, keep NPO, ok to take meds change lovenox to dvt ppx gi ppx off pressors. coreg added, cath on Sunday as per card talked to daily at bedside History of Present Illness History of Present Illness Admitted for perforation of the diverticulitis, first episode of diverticulitis. But about 6:15 AM Sunday, found on the ground, unresponsive, nonsustained V. tach, 2 minutes of CPR, with ROSC extubated 03/14 NEeded levophed sunday - but off pressors sunday talked to at bedside for a long time, who is not happy that someone told her that pt had heart attack i printed out the echo result to her and explained some possibilities for the CHF CT 03/11 showed diverticulitis, 2.4cm abscess 03/15 CT showed smaller old abcess, but new fluid pocket. 03/15: extubated 03/14. sinus HR 140s after duoneb, high BP. no abd pain. lasix x1 03/14, wbc higher to 11. 03/17: feels ok, no abd pain, wbc better to 10 Vitals Vitals Vital Signs Date Time Temp Pulse Resp B/P (MAP) Pulse Ox O2 Delivery O2 Flow Rate FiO2 03/17/18 12:11 Room Air 03/17/18 11:00 98.5 85 24 125/80 (95) 96 2.0 98.5 Physical Exam Physical Exam GENERAL: NAD, alert, looks really well, in bed HENT: PERRLA, Oc/Op -clear NECK: no JVD LUNGS: CTA CV: S1/S2 ABDOMEN: Obese, hypoactive but + bowel sounds, soft, no rebound/guard. less distension EXT: No gross edema or cyanosis. right groin dressing clean SKIN: warm without rash NEURO: - alert/appropriate/pleasant Right PICC line - clean General: Alert, Oriented X3 Heart: Regular rate Lungs: Clear Abdomen: Soft, No tenderness Extremities: No clubbing, No cyanosis Skin: No rashes, No breakdown Labs LABS Laboratory Tests Test 03/16/18 17:28 03/16/18 21:05 03/17/18 06:30 03/17/18 07:47 Glucose (Fingerstick) 136 mg/dL (70-99) 145 mg/dL (70-99) 121 mg/dL (70-99) White Blood Count 10.6 x10^3/uL (4.0-11.0) Red Blood Count 3.87 x10^6/uL (4.30-5.70) Hemoglobin 11.9 g/dL (13.0-17.5) Hematocrit 36.3 % (39.0-53.0) Mean Corpuscular Volume 94 fL (79-100) Mean Corpuscular Hemoglobin 31 pg (25-35) Mean Corpuscular Hemoglobin Concent 33 g/dL (31-37) Red Cell Distribution Width 14.2 % (11.5-14.5) Platelet Count 566 x10^3/uL (140-400) Neutrophils (%) (Auto) 72 % (31-73) Lymphocytes (%) (Auto) 16 % (24-48) Monocytes (%) (Auto) 7 % (0-9) Eosinophils (%) (Auto) 5 % (0-3) Basophils (%) (Auto) 1 % (0-3) Neutrophils # (Auto) 7.6 x10^3uL (1.8-7.7) Lymphocytes # (Auto) 1.7 x10^3/uL (1.0-4.8) Monocytes # (Auto) 0.7 x10^3/uL (0.0-1.1) Eosinophils # (Auto) 0.5 x10^3/uL (0.0-0.7) Basophils # (Auto) 0.1 x10^3/uL (0.0-0.2) Test 03/17/18 08:11 8/12/18 11:15 Sodium Level 138 mmol/L (136-145) Potassium Level 4.2 mmol/L (3.5-5.1) Chloride Level 103 mmol/L (98-107) Carbon Dioxide Level 26 mmol/L (21-32) Anion Gap 9 (6-14) Blood Urea Nitrogen 18 mg/dL (8-26) Creatinine 0.8 mg/dL (0.7-1.3) Estimated GFR (Cockcroft-Gault) 109.4 Glucose Level 124 mg/dL (70-99) Calcium Level 9.1 mg/dL (8.5-10.1) Glucose (Fingerstick) 126 mg/dL (70-99) Assessment and Plan Assessmemt and Plan Problems Medical Problems: (1) Diverticulitis of colon with perforation Status: Acute Comment Review of Relevant I have reviewed the following items kalin (where applicable) has been applied. Labs Laboratory Tests Test 03/15/18 17:48 03/15/18 20:57 03/15/18 23:40 03/16/18 06:15 Glucose (Fingerstick) 162 mg/dL (70-99) 136 mg/dL (70-99) Urine Collection Type Unknown Urine Color Yellow Urine Clarity Clear Urine pH 6.5 Urine Specific [place] >=1.030 Urine Protein 100 mg/dL (NEG-TRACE) Urine Glucose (UA) Negative mg/dL (NEG) Urine Ketones (Stick) Negative mg/dL (NEG) Urine Blood Negative (NEG) Urine Nitrite Negative (NEG) Urine Bilirubin Negative (NEG) Urine Urobilinogen Dipstick 0.2 mg/dL (0.2 mg/dL) Urine Leukocyte Esterase Negative (NEG) Urine RBC 11-20 /HPF (0-2) Urine WBC Occ /HPF (0-4) Urine Squamous Epithelial Cells Few /LPF Urine Bacteria 0 /HPF (0-FEW) Urine Mucus Slight /LPF White Blood Count 11.9 x10^3/uL (4.0-11.0) Red Blood Count 3.88 x10^6/uL (4.30-5.70) Hemoglobin 11.3 g/dL (13.0-17.5) Hematocrit 34.9 % (39.0-53.0) Mean Corpuscular Volume 90 fL (79-100) Mean Corpuscular Hemoglobin 29 pg (25-35) Mean Corpuscular Hemoglobin Concent 33 g/dL (31-37) Red Cell Distribution Width 13.7 % (11.5-14.5) Platelet Count 503 x10^3/uL (140-400) Neutrophils (%) (Auto) 73 % (31-73) Lymphocytes (%) (Auto) 14 % (24-48) Monocytes (%) (Auto) 9 % (0-9) Eosinophils (%) (Auto) 4 % (0-3) Basophils (%) (Auto) 1 % (0-3) Neutrophils # (Auto) 8.7 x10^3uL (1.8-7.7) Lymphocytes # (Auto) 1.6 x10^3/uL (1.0-4.8) Monocytes # (Auto) 1.0 x10^3/uL (0.0-1.1) Eosinophils # (Auto) 0.4 x10^3/uL (0.0-0.7) Basophils # (Auto) 0.1 x10^3/uL (0.0-0.2) Sodium Level 139 mmol/L (136-145) Potassium Level 4.0 mmol/L (3.5-5.1) Chloride Level 104 mmol/L (98-107) Carbon Dioxide Level 28 mmol/L (21-32) Anion Gap 7 (6-14) Blood Urea Nitrogen 17 mg/dL (8-26) Creatinine 0.9 mg/dL (0.7-1.3) Estimated GFR (Cockcroft-Gault) 95.5 BUN/Creatinine Ratio 19 (6-20) Glucose Level 171 mg/dL (70-99) Calcium Level 9.5 mg/dL (8.5-10.1) Phosphorus Level 4.2 mg/dL (2.6-4.7) Magnesium Level 2.0 mg/dL (1.8-2.4) Total Bilirubin 0.3 mg/dL (0.2-1.0) Aspartate Amino Transf (AST/SGOT) 123 U/L (15-37) Alanine Aminotransferase (ALT/SGPT) 118 U/L (16-63) Alkaline Phosphatase 67 U/L (46-116) Total Protein 8.0 g/dL (6.4-8.2) Albumin 2.5 g/dL (3.4-5.0) Albumin/Globulin Ratio 0.5 (1.0-1.7) Test 03/16/18 07:55 03/16/18 11:09 03/16/18 17:28 03/16/18 21:05 Glucose (Fingerstick) 158 mg/dL (70-99) 147 mg/dL (70-99) 136 mg/dL (70-99) 145 mg/dL (70-99) Test 03/17/18 06:30 03/17/18 07:47 03/17/18 08:11 03/17/18 11:15 White Blood Count 10.6 x10^3/uL (4.0-11.0) Red Blood Count 3.87 x10^6/uL (4.30-5.70) Hemoglobin 11.9 g/dL (13.0-17.5) Hematocrit 36.3 % (39.0-53.0) Mean Corpuscular Volume 94 fL (79-100) Mean Corpuscular Hemoglobin 31 pg (25-35) Mean Corpuscular Hemoglobin Concent 33 g/dL (31-37) Red Cell Distribution Width 14.2 % (11.5-14.5) Platelet Count 566 x10^3/uL (140-400) Neutrophils (%) (Auto) 72 % (31-73) Lymphocytes (%) (Auto) 16 % (24-48) Monocytes (%) (Auto) 7 % (0-9) Eosinophils (%) (Auto) 5 % (0-3) Basophils (%) (Auto) 1 % (0-3) Neutrophils # (Auto) 7.6 x10^3uL (1.8-7.7) Lymphocytes # (Auto) 1.7 x10^3/uL (1.0-4.8) Monocytes # (Auto) 0.7 x10^3/uL (0.0-1.1) Eosinophils # (Auto) 0.5 x10^3/uL (0.0-0.7) Basophils # (Auto) 0.1 x10^3/uL (0.0-0.2) Glucose (Fingerstick) 121 mg/dL (70-99) 126 mg/dL (70-99) Sodium Level 138 mmol/L (136-145) Potassium Level 4.2 mmol/L (3.5-5.1) Chloride Level 103 mmol/L (98-107) Carbon Dioxide Level 26 mmol/L (21-32) Anion Gap 9 (6-14) Blood Urea Nitrogen 18 mg/dL (8-26) Creatinine 0.8 mg/dL (0.7-1.3) Estimated GFR (Cockcroft-Gault) 109.4 Glucose Level 124 mg/dL (70-99) Calcium Level 9.1 mg/dL (8.5-10.1) Laboratory Tests Test 03/16/18 17:28 03/16/18 21:05 03/17/18 06:30 03/17/18 07:47 Glucose (Fingerstick) 136 mg/dL (70-99) 145 mg/dL (70-99) 121 mg/dL (70-99) White Blood Count 10.6 x10^3/uL (4.0-11.0) Red Blood Count 3.87 x10^6/uL (4.30-5.70) Hemoglobin 11.9 g/dL (13.0-17.5) Hematocrit 36.3 % (39.0-53.0) Mean Corpuscular Volume 94 fL (79-100) Mean Corpuscular Hemoglobin 31 pg (25-35) Mean Corpuscular Hemoglobin Concent 33 g/dL (31-37) Red Cell Distribution Width 14.2 % (11.5-14.5) Platelet Count 566 x10^3/uL (140-400) Neutrophils (%) (Auto) 72 % (31-73) Lymphocytes (%) (Auto) 16 % (24-48) Monocytes (%) (Auto) 7 % (0-9) Eosinophils (%) (Auto) 5 % (0-3) Basophils (%) (Auto) 1 % (0-3) Neutrophils # (Auto) 7.6 x10^3uL (1.8-7.7) Lymphocytes # (Auto) 1.7 x10^3/uL (1.0-4.8) Monocytes # (Auto) 0.7 x10^3/uL (0.0-1.1) Eosinophils # (Auto) 0.5 x10^3/uL (0.0-0.7) Basophils # (Auto) 0.1 x10^3/uL (0.0-0.2) Test 03/17/18 08:11 03/17/18 11:15 Sodium Level 138 mmol/L (136-145) Potassium Level 4.2 mmol/L (3.5-5.1) Chloride Level 103 mmol/L (98-107) Carbon Dioxide Level 26 mmol/L (21-32) Anion Gap 9 (6-14) Blood Urea Nitrogen 18 mg/dL (8-26) Creatinine 0.8 mg/dL (0.7-1.3) Estimated GFR (Cockcroft-Gault) 109.4 Glucose Level 124 mg/dL (70-99) Calcium Level 9.1 mg/dL (8.5-10.1) Glucose (Fingerstick) 126 mg/dL (70-99) Microbiology 03/09/18 Blood Culture - Final, Complete NO GROWTH AFTER 5 DAYS Medications Current Medications Sodium Chloride (Normal Saline Flush) 3 ml QSHIFT PRN IV AFTER MEDS AND BLOOD DRAWS; Start 03/07/18 at 11:00 Sodium Chloride 1,000 ml @ 1,000 mls/hr Q1H IV Last administered on 03/07/18at 11:32; Start 03/07/18 at 11:00; Stop 03/07/18 at 11:59; Status DC Iohexol (Omnipaque 300 Mg/ml) 75 ml 1X ONCE IV Last administered on 03/07/18at 12:46; Start 03/07/18 at 11:15; Stop 03/07/18 at 11:16; Status DC Info (CONTRAST GIVEN -- Rx MONITORING) 1 each PRN DAILY PRN MC SEE COMMENTS; Start 03/07/18 at 11:15; Stop 03/09/18 at 11:14; Status DC Sodium Chloride 1,000 ml @ 1,000 mls/hr 1X ONCE IV Last administered on at 12:37; Start 03/07/18 at 12:00; Stop 03/07/18 at 12:59; Status DC Fentanyl Citrate (Fentanyl 2ml Vial) 50 mcg 1X ONCE IV Last administered on 03/07/18at 13:07; Start 03/07/18 at 13:00; Stop 03/07/18 at 13:01; Status DC Metronidazole 100 ml @ 100 mls/hr 1X ONCE IV ; Start 03/07/18 at 13:30; Stop at 14:29; Status DC Ciprofloxacin/ Dextrose 200 ml @ 200 mls/hr ONCE STAT IV Last administered on 03/07/18at 13:42; Start 03/07/18 at 13:12; Stop 03/07/18 at 14:11; Status DC Piperacillin Sod/ Tazobactam Sod 3.375 gm/Sodium Chloride 50 ml @ 100 mls/hr 1X ONCE IV Last administered on 03/07/18at 14:43; Start 03/07/18 at 14:30; Stop 03/07/18 at 14:59; Status DC Diphenhydramine HCl (Benadryl) 50 mg 1X ONCE IVP Last administered on at 14:33; Start 03/07/18 at 14:15; Stop 03/07/18 at 14:16; Status DC Fentanyl Citrate (Fentanyl 2ml Vial) 25 mcg 1X ONCE IV ; Start 03/07/18 at 14:15 ; Stop 03/07/18 at 14:16; Status Cancel Morphine Sulfate (Morphine Sulfate) 4 mg 1X ONCE IV Last administered on at 14:35; Start 03/07/18 at 14:30; Stop 03/07/18 at 14:31; Status DC Ondansetron HCl (Zofran) 4 mg PRN Q8HRS PRN IV NAUSEA/VOMITING; Start 03/07/18 at 14:30; Stop 03/08/18 at 14:29; Status DC Morphine Sulfate (Morphine Sulfate) 4 mg PRN Q2HR PRN IV PAIN Last administered on 03/08/18at 08:20; Start 03/07/18 at 14:30; Stop 03/08/18 at 14:29; Status DC Piperacillin Sod/ Tazobactam Sod 3.375 gm/Sodium Chloride 50 ml @ 100 mls/hr Q6HRS IV Last administered on 03/17/18at 12:02; Start 03/07/18 at 18:00 Metronidazole 100 ml @ 100 mls/hr Q8HRS IV Last administered on 03/09/18at 11:19 ; Start 03/07/18 at 22:00; Stop 03/09/18 at 15:10; Status DC Sodium Chloride 500 ml @ 500 mls/hr 1X ONCE IV Last administered on 03/07/18at 16:45; Start 03/07/18 at 16:45; Stop 03/07/18 at 17:44; Status DC Amino Acids/ Glycerin/ Electrolytes 1,000 ml @ 80 mls/hr [id number] IV Last administered on 03/11/18at 07:47; Start 03/07/18 at 16:45; Stop 03/11/18 at 20:21; Status DC Acetaminophen (Tylenol) 650 mg PRN Q6HRS PRN PO fever Last administered on 07/23at 03:58; Start 03/07/18 at 18:00 Pantoprazole Sodium (PROTONIX VIAL for IV PUSH) 40 mg DAILYAC IVP Last administered on 03/14/18at 08:10; Start 03/08/18 at 07:45; Stop 03/14/18 at 17:45; Status DC Morphine Sulfate (Morphine Sulfate) 4 mg PRN Q2HR PRN IV MODRATE-SEVERE PAIN 2ND CHOICE Last administered on 03/15/18at 22:01; Start 03/08/18 at 14:45 Lorazepam (Ativan) 1 mg PRN Q4HRS PRN IV ANXIETY / AGITATION Last administered on 03/17/18at 04:02; Start 03/08/18 at 20:30 Ondansetron HCl (Zofran) 4 mg PRN Q6HRS PRN IV NAUSEA/VOMITING 1ST CHOICE Last administered on 03/14/18at 12:16; Start 03/09/18 at 02:00 Etomidate (Amidate) 20 mg STK-MED ONCE IV ; Start 03/09/18 at 06:55; Stop at 06:56; Status DC Norepinephrine Bitartrate 250 ml @ As Directed STK-MED ONCE IV ; Start 03/09/18 at 06:55; Stop 03/09/18 at 06:56; Status DC Midazolam HCl (Versed) 5 mg STK-MED ONCE .ROUTE ; Start 03/09/18 at 06:55; Stop 03/09/18 at 06:56; Status DC Fentanyl Citrate (Fentanyl 2ml Vial) 100 mcg STK-MED ONCE .ROUTE ; Start at 06:55; Stop 03/09/18 at 06:56; Status DC Succinylcholine Chloride (Anectine) 200 mg STK-MED ONCE .ROUTE ; Start 03/09/18 at 06:56; Stop 03/09/18 at 06:57; Status DC Fentanyl Citrate 30 ml @ 0 mls/hr CONT PRN IV PER PROTOCOL Last administered on 03/13/18at 03:06; Start 03/09/18 at 07:00; Stop 03/13/18 at 16:35; Status DC Fentanyl Citrate (Fentanyl 2ml Vial) 25 mcg PRN Q1HR PRN IV MILD PAIN; Start at 07:00 Fentanyl Citrate (Fentanyl 2ml Vial) 50 mcg PRN Q1HR PRN IV MOD TO SEVERE PAIN ; Start 03/09/18 at 07:00 Chlorhexidine Gluconate (Peridex) 15 ml BID MM Last administered on 03/14/18at 08 :11; Start 03/09/18 at 09:00; Stop 03/15/18 at 07:33; Status DC Midazolam HCl (Versed) 2 mg PRN Q30MIN PRN IV SEDATION; Start 03/09/18 at 07:00 ; Stop 03/10/18 at 10:26; Status DC Midazolam HCl 100 ml @ 0 mls/hr CONT PRN IV PER PROTOCOL Last administered on at 14:07; Start 03/09/18 at 07:00; Stop 03/13/18 at 16:35; Status DC Enoxaparin Sodium (Lovenox 40mg Syringe) 40 mg Q12H SQ Last administered on 03/10at 09:31; Start 03/09/18 at 09:00; Stop 03/10/18 at 12:01; Status DC Sodium Chloride 1,000 ml @ 75 mls/hr [id number] IV Last administered on 03/14/18at 02:48; Start 03/09/18 at 10:15; Stop 03/14/18 at 10:32; Status DC Sodium Chloride 1,000 ml @ 1,000 mls/hr 1X ONCE IV Last administered on at 10:15; Start 03/09/18 at 10:15; Stop 03/09/18 at 11:14; Status DC Norepinephrine Bitartrate 250 ml @ As Directed STK-MED ONCE IV ; Start 03/09/18 at 10:37; Stop 03/09/18 at 10:38; Status DC Phenylephrine HCl 20 mg/Sodium Chloride 252 ml @ 22.68 mls/ hr 1X ONCE IV ; Start 03/09/18 at 10:45; Stop 03/09/18 at 21:51; Status DC Iohexol (Omnipaque 300 Mg/ml) 75 ml 1X ONCE IV ; Start 03/09/18 at 11:30; Stop 03/09/18 at 11:35; Status DC Micafungin Sodium 100 mg/Dextrose 100 ml @ 100 mls/hr Q24H IV Last administered on 03/16/18at 16:15; Start 03/09/18 at 16:00 Linezolid/Dextrose 300 ml @ 300 mls/hr Q12H IV Last administered on 03/14/18at 04:58; Start 03/09/18 at 17:00; Stop 03/14/18 at 09:14; Status DC Norepinephrine Bitartrate 250 ml @ 1.875 mls/ hr CONT PRN IV SEE I/O RECORD Last administered on 03/09/18at 16:18; Start 03/09/18 at 16:00; Stop 03/15/18 at 12 :46; Status DC Furosemide (Lasix) 40 mg 1X ONCE IVP Last administered on 03/10/18at 08:49; Start 03/10/18 at 09:00; Stop 03/10/18 at 09:01; Status DC Perflutren Protein Type A Microsphe (Optison) 0.66 mg STK-MED ONCE IV ; Start at 10:23; Stop 03/10/18 at 10:25; Status DC Enoxaparin Sodium (Lovenox Per Pharmacy Treatment Dosing) 1 each PRN DAILY PRN MC SEE COMMENTS; Start 03/10/18 at 12:00; Stop 03/11/18 at 12:50; Status DC Enoxaparin Sodium (Lovenox 150mg Syringe) 130 mg Q12H SQ Last administered on at 07:48; Start 03/10/18 at 21:00; Stop 03/11/18 at 12:51; Status DC Enoxaparin Sodium (Lovenox 100mg Syringe) 90 mg 1X ONCE SQ Last administered on 03/10/18at 13:53; Start 03/10/18 at 12:30; Stop 03/10/18 at 12:31; Status DC Perflutren Protein Type A Microsphe (Optison) 0.66 mg 1X ONCE IV Last administered on 03/10/18at 12:55; Start 03/10/18 at 13:00; Stop 03/10/18 at 13:01; Status DC Iohexol (Omnipaque 300 Mg/ml) 75 ml 1X ONCE IV Last administered on 03/11/18at 10:00; Start 03/11/18 at 09:00; Stop 03/11/18 at 09:01; Status DC Info (CONTRAST GIVEN -- Rx MONITORING) 1 each PRN DAILY PRN MC SEE COMMENTS; Start 03/11/18 at 09:00; Stop 03/13/18 at 08:59; Status DC Norepinephrine Bitartrate (Levophed 8mg/ 250ml Premix Drip) 8 mg STK-MED ONCE IV ; Start 03/09/18 at 07:00; Stop 03/11/18 at 08:58; Status DC Insulin Human Lispro (HumaLOG) 0-5 UNITS TIDWMEALS SQ Last administered on 03/16at 09:13; Start 03/11/18 at 12:00 Dextrose (Dextrose 50%-Water Syringe) 12.5 gm PRN Q15MIN PRN IV SEE COMMENTS; Start 03/11/18 at 09:15 Potassium Chloride/Water 50 ml @ 50 mls/hr 1X ONCE IV Last administered on 03/11at 09:43; Start 03/11/18 at 10:00; Stop 03/11/18 at 10:59; Status DC Info (Anti-Coagulation Monitoring By Pharmacy) 1 each PRN DAILY PRN MC SEE COMMENTS; Start 03/11/18 at 09:30; Stop 03/11/18 at 12:51; Status DC Info (Tpn Per Pharmacy) 1 each PRN DAILY PRN MC SEE COMMENTS Last administered on 03/16/18at 14:53; Start 03/11/18 at 11:15 Magnesium Sulfate 50 ml @ 25 mls/hr 1X ONCE IV Last administered on 03/11/18at 15:09; Start 03/11/18 at 16:00; Stop 03/11/18 at 17:59; Status DC Potassium Phosphate 13.6 mmol/Dextrose 104.5333 ml @ 52.267 m... ONCE ONCE IV Last administered on 03/11/18at 17:11; Start 03/11/18 at 18:00; Stop 03/11/18 at 19:59; Status DC Norepinephrine Bitartrate (Levophed 8mg/ 250ml Premix Drip) 8 mg STK-MED ONCE IV ; Start 03/09/18 at 11:00; Stop 03/11/18 at 12:37; Status DC Enoxaparin Sodium (Lovenox 40mg Syringe) 40 mg Q12HR SQ Last administered on 07/23at 09:07; Start 03/11/18 at 21:00 Sodium Chloride 90 meq/Potassium Chloride 50 meq/ Potassium Phosphate 13.6 mmol/ Magnesium Sulfate 10 meq/ Multivitamins 10 ml/Chromium/ Copper/Manganese/ Seleni /Zn 1 ml/ Total Parenteral Nutrition/Amino Acids/Dextrose/ Fat Emulsion Intravenous 1,800 ml @ 75 mls/hr TPN CONT IV Last administered on 03/11/18at 21 :44; Start 03/11/18 at 22:00; Stop 03/12/18 at 21:59; Status DC Potassium Chloride/Water 50 ml @ 50 mls/hr 1X ONCE IV Last administered on 03/12at 10:40; Start 03/12/18 at 09:30; Stop 03/12/18 at 10:29; Status DC Sodium Chloride 90 meq/Potassium Acetate 70 meq/ Potassium Phosphate 10 mmol/ Magnesium Sulfate 10 meq/ Multivitamins 10 ml/Chromium/ Copper/Manganese/ Seleni /Zn 1 ml/ Total Parenteral Nutrition/Amino Acids/Dextrose/ Fat Emulsion Intravenous 1,800 ml @ 75 mls/hr TPN CONT IV ; Start 03/12/18 at 22:00; Stop at 22:00; Status DC Sodium Chloride 90 meq/Potassium Chloride 70 meq/ Potassium Phosphate 10 mmol/ Magnesium Sulfate 10 meq/ Multivitamins 10 ml/Chromium/ Copper/Manganese/ Seleni /Zn 1 ml/ Total Parenteral Nutrition/Amino Acids/Dextrose/ Fat Emulsion Intravenous 1,800 ml @ 75 mls/hr TPN CONT IV Last administered on 03/12/18at 21 :41; Start 03/12/18 at 22:00; Stop 03/13/18 at 21:59; Status DC Benzocaine (Hurricaine One) 1 spray 1X ONCE MM ; Start 03/13/18 at 12:45; Stop 03/13/18 at 12:45; Status DC Promethazine HCl/ Codeine (Phenergan With Codeine) 5 ml PRN Q6HRS PRN PO COUGH Last administered on 03/14/18at 08:10; Start 03/13/18 at 12:45 Benzocaine (Hurricaine One) 1 spray 1X ONCE MM ; Start 03/13/18 at 12:45; Stop 03/13/18 at 12:45; Status DC Benzocaine (Hurricaine One) 1 spray 1X ONCE MM Last administered on 03/13/18at 16:11; Start 03/13/18 at 12:45; Stop 03/13/18 at 12:46; Status DC Sodium Chloride 90 meq/Potassium Chloride 70 meq/ Potassium Phosphate 13.6 mmol/ Magnesium Sulfate 10 meq/ Multivitamins 10 ml/Chromium/ Copper/Manganese/ Seleni /Zn 1 ml/ Total Parenteral Nutrition/Amino Acids/Dextrose/ Fat Emulsion Intravenous 1,800 ml @ 75 mls/hr TPN CONT IV Last administered on 03/13/18at 21 :53; Start 03/13/18 at 22:00; Stop 03/14/18 at 21:59; Status DC Propofol 100 ml @ As Directed STK-MED ONCE IV ; Start 03/13/18 at 15:47; Stop at 15:48; Status DC Propofol 100 ml @ 0 mls/hr CONT PRN IV PER PROTOCOL Last administered on at 05:04; Start 03/13/18 at 16:45; Stop 03/14/18 at 17:45; Status DC Hydralazine HCl (Apresoline Inj) 10 mg PRN Q4HRS PRN IVP ELEVATED BP, SEE COMMENTS Last administered on 03/15/18at 11:37; Start 03/14/18 at 09:00 Albuterol/ Ipratropium (Duoneb) 3 ml RTQID NEB Last administered on 03/15/18at 08:27; Start 03/14/18 at 12:00; Stop 03/15/18 at 11:01; Status DC Albuterol/ Ipratropium (Duoneb) 3 ml 1X ONCE NEB Last administered on at 09:36; Start 03/14/18 at 09:30; Stop 03/14/18 at 09:31; Status DC Dexmedetomidine HCl 200 mcg/ Sodium Chloride 50 ml @ 0 mls/hr CONT PRN IV PER PROTOCOL Last administered on 03/14/18at 14:17; Start 03/14/18 at 10:30; Stop 03/15 at 07:33; Status DC Sodium Chloride 500 ml @ 500 mls/hr 1X PRN PRN IV SEE COMMENTS; Start 03/14/18 at 10:30 Atropine Sulfate (ATROPINE 0.5mg SYRINGE) 0.5 mg PRN Q5MIN PRN IV SEE COMMENTS ; Start 03/14/18 at 10:30 Furosemide (Lasix) 40 mg 1X ONCE IVP Last administered on 03/14/18at 10:45; Start 03/14/18 at 10:30; Stop 03/14/18 at 10:31; Status DC Sodium Chloride 90 meq/Potassium Chloride 70 meq/ Potassium Phosphate 13.6 mmol/ Magnesium Sulfate 10 meq/ Multivitamins 10 ml/Chromium/ Copper/Manganese/ Seleni /Zn 1 ml/ Total Parenteral Nutrition/Amino Acids/Dextrose/ Fat Emulsion Intravenous 1,800 ml @ 75 mls/hr TPN CONT IV Last administered on 03/14/18at 22 :33; Start 03/14/18 at 22:00; Stop 03/15/18 at 21:59; Status DC Pantoprazole Sodium (PROTONIX VIAL for IV PUSH) 40 mg BID IVP Last administered on 03/17/18at 09:09; Start 03/15/18 at 09:00 Iohexol (Omnipaque 300 Mg/ml) 75 ml 1X ONCE IV Last administered on 03/15/18at 06:15; Start 03/15/18 at 06:15; Stop 03/15/18 at 06:16; Status DC Iohexol (Omnipaque 240 Mg/ml) 50 ml 1X ONCE PO Last administered on 03/15/18at 06:15; Start 03/15/18 at 06:15; Stop 03/15/18 at 06:16; Status DC Info (CONTRAST GIVEN -- Rx MONITORING) 1 each PRN DAILY PRN MC SEE COMMENTS; Start 03/15/18 at 06:15; Stop 03/17/18 at 06:14; Status DC Labetalol HCl (Normodyne) 20 mg PRN Q2HR PRN IVP HYPERTENSION, SEE COMMENTS Last administered on 03/15/18at 09:46; Start 03/15/18 at 09:30 Ipratropium [place] (Atrovent) 0.5 mg 1X ONCE NEB ; Start 03/15/18 at 12:00; Stop 03/15/18 at 12:00; Status DC Ipratropium [place] (Atrovent) 0.5 mg RTQID NEB Last administered on 03/17/18at 12:11; Start 03/15/18 at 12:00 Metoprolol Tartrate (Lopressor Vial) 5 mg Q6HRS IVP Last administered on at 12:56; Start 03/15/18 at 12:00; Stop 03/15/18 at 18:14; Status DC Carvedilol (Coreg) 12.5 mg BIDWMEALS PO Last administered on 03/17/18at 09:08; Start 03/15/18 at 17:00 Sodium Chloride 90 meq/Potassium Chloride 70 meq/ Potassium Phosphate 5 mmol/ Magnesium Sulfate 10 meq/ Multivitamins 10 ml/Chromium/ Copper/Manganese/ Seleni /Zn 1 ml/ Total Parenteral Nutrition/Amino Acids/Dextrose/ Fat Emulsion Intravenous 1,800 ml @ 75 mls/hr TPN CONT IV Last administered on 03/15/18at 21:17; Start 03/15/18 at 22:00; Stop 03/16/18 at 21:59; Status DC Phenazopyridine HCl (Pyridium) 200 mg PRN TID PRN PO URINARY PAIN; Start at 11:15 Sodium Chloride 90 meq/Potassium Chloride 70 meq/ Potassium Phosphate 5 mmol/ Magnesium Sulfate 10 meq/ Multivitamins 10 ml/Chromium/ Copper/Manganese/ Seleni /Zn 1 ml/ Total Parenteral Nutrition/Amino Acids/Dextrose/ Fat Emulsion Intravenous 1,800 ml @ 75 mls/hr TPN CONT IV Last administered on 03/16/18at 20:27; Start 03/16/18 at 22:00; Stop 03/17/18 at 21:59 Active Scripts Active Reported Amlodipine Besylate 5 Mg Tablet 5 Mg PO DAILY Omeprazole 40 Mg Capsule.dr 1 Cap PO BID Vitals/I & O Vital Sign - Last 24 Hours 03/16/18 03/16/18 03/16/18 03/16/18 15:00 15:21 16:14 19:35 Temp 97.9 98.2 97.9 98.2 Pulse 84 86 80 Resp 18 26 B/P (MAP) 138/76 (96) 138/76 146/77 (100) Pulse Ox 92 93 O2 Delivery Nasal Cannula Nasal Cannula Room Air O2 Flow Rate 2.0 2.0 03/16/18 03/16/18 03/16/18 03/17/18 19:54 20:14 23:51 03:35 Temp 98.4 97.8 98.4 97.8 Pulse 80 87 Resp 24 B/P (MAP) 141/77 (98) 156/70 (98) Pulse Ox 96 94 94 O2 Delivery Nasal Cannula Room Air Nasal Cannula Nasal Cannula O2 Flow Rate 2.0 2.0 2.0 03/17/18 03/17/18 03/17/18 03/17/18 07:00 07:37 08:25 09:08 Temp 97.9 97.9 Pulse 87 85 Resp 24 B/P (MAP) 153/81 (105) 153/81 Pulse Ox 92 96 O2 Delivery Nasal Cannula Room Air Room Air O2 Flow Rate 2.0 03/17/18 03/17/18 11:00 12:11 Temp 98.5 98.5 Pulse 85 Resp 24 B/P (MAP) 125/80 (95) Pulse Ox 96 O2 Delivery Nasal Cannula Room Air O2 Flow Rate 2.0 Intake and Output 03/16/18 03/16/18 03/17/18 15:00 23:00 07:00 Intake Total 500 ml 675 ml Output Total 750 ml 725 ml Balance -250 ml -50 ml KELBY CEDEÑO MD Mar 17, 2018 14:20
--- NOTE | 2018-03-17 14:28 | PDOC ---
PROGRESS NOTES Subjective Subjective Patient seen and examined The patient looks and feels well today. Objective Objective Vital Signs Date Time Temp Pulse Resp B/P (MAP) Pulse Ox O2 Delivery O2 Flow Rate FiO2 03/17/18 12:11 Room Air 03/17/18 11:00 98.5 85 24 125/80 (95) 96 2.0 98.5 Intake and Output 03/17/18 07:00 Intake Total 1175 ml Output Total 1475 ml Balance -300 ml Intake Oral 600 ml IV Total 575 ml Output Urine Total 1475 ml Physical Exam Abdomen: Normal bowel sounds Heart: Regular rate General: No acute distress Lungs: Clear to auscultation Assessment Assessment Problems Medical Problems: (1) Diverticulitis of colon with perforation Status: Acute Acute hypoxic resp failure likely due to ARDS. Extubated 04/14/18. Looks and feels well. Continue present treatment. 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 LV function by ECHO of 35%. Compensated. Heart cath tomorrow. Discussed with the patient and his family. NSVT. Rhythm stable. HTN. Improved. Will adjust meds as needed. Divertic perf with sepsis. Treatment as above. Comment Review of Relevant I have reviewed the following items kalin (where applicable) has been applied. Labs Laboratory Tests Test 03/15/18 17:48 03/15/18 20:57 03/15/18 23:40 03/16/18 06:15 Glucose (Fingerstick) 162 mg/dL (70-99) 136 mg/dL (70-99) Urine Collection Type Unknown Urine Color Yellow Urine Clarity Clear Urine pH 6.5 Urine Specific [place] >=1.030 Urine Protein 100 mg/dL (NEG-TRACE) Urine Glucose (UA) Negative mg/dL (NEG) Urine Ketones (Stick) Negative mg/dL (NEG) Urine Blood Negative (NEG) Urine Nitrite Negative (NEG) Urine Bilirubin Negative (NEG) Urine Urobilinogen Dipstick 0.2 mg/dL (0.2 mg/dL) Urine Leukocyte Esterase Negative (NEG) Urine RBC 11-20 /HPF (0-2) Urine WBC Occ /HPF (0-4) Urine Squamous Epithelial Cells Few /LPF Urine Bacteria 0 /HPF (0-FEW) Urine Mucus Slight /LPF White Blood Count 11.9 x10^3/uL (4.0-11.0) Red Blood Count 3.88 x10^6/uL (4.30-5.70) Hemoglobin 11.3 g/dL (13.0-17.5) Hematocrit 34.9 % (39.0-53.0) Mean Corpuscular Volume 90 fL (79-100) Mean Corpuscular Hemoglobin 29 pg (25-35) Mean Corpuscular Hemoglobin Concent 33 g/dL (31-37) Red Cell Distribution Width 13.7 % (11.5-14.5) Platelet Count 503 x10^3/uL (140-400) Neutrophils (%) (Auto) 73 % (31-73) Lymphocytes (%) (Auto) 14 % (24-48) Monocytes (%) (Auto) 9 % (0-9) Eosinophils (%) (Auto) 4 % (0-3) Basophils (%) (Auto) 1 % (0-3) Neutrophils # (Auto) 8.7 x10^3uL (1.8-7.7) Lymphocytes # (Auto) 1.6 x10^3/uL (1.0-4.8) Monocytes # (Auto) 1.0 x10^3/uL (0.0-1.1) Eosinophils # (Auto) 0.4 x10^3/uL (0.0-0.7) Basophils # (Auto) 0.1 x10^3/uL (0.0-0.2) Sodium Level 139 mmol/L (136-145) Potassium Level 4.0 mmol/L (3.5-5.1) Chloride Level 104 mmol/L (98-107) Carbon Dioxide Level 28 mmol/L (21-32) Anion Gap 7 (6-14) Blood Urea Nitrogen 17 mg/dL (8-26) Creatinine 0.9 mg/dL (0.7-1.3) Estimated GFR (Cockcroft-Gault) 95.5 BUN/Creatinine Ratio 19 (6-20) Glucose Level 171 mg/dL (70-99) Calcium Level 9.5 mg/dL (8.5-10.1) Phosphorus Level 4.2 mg/dL (2.6-4.7) Magnesium Level 2.0 mg/dL (1.8-2.4) Total Bilirubin 0.3 mg/dL (0.2-1.0) Aspartate Amino Transf (AST/SGOT) 123 U/L (15-37) Alanine Aminotransferase (ALT/SGPT) 118 U/L (16-63) Alkaline Phosphatase 67 U/L (46-116) Total Protein 8.0 g/dL (6.4-8.2) Albumin 2.5 g/dL (3.4-5.0) Albumin/Globulin Ratio 0.5 (1.0-1.7) Test 03/16/18 07:55 03/16/18 11:09 03/16/18 17:28 03/16/18 21:05 Glucose (Fingerstick) 158 mg/dL (70-99) 147 mg/dL (70-99) 136 mg/dL (70-99) 145 mg/dL (70-99) Test 03/17/18 06:30 03/17/18 07:47 03/17/18 08:11 03/17/18 11:15 White Blood Count 10.6 x10^3/uL (4.0-11.0) Red Blood Count 3.87 x10^6/uL (4.30-5.70) Hemoglobin 11.9 g/dL (13.0-17.5) Hematocrit 36.3 % (39.0-53.0) Mean Corpuscular Volume 94 fL (79-100) Mean Corpuscular Hemoglobin 31 pg (25-35) Mean Corpuscular Hemoglobin Concent 33 g/dL (31-37) Red Cell Distribution Width 14.2 % (11.5-14.5) Platelet Count 566 x10^3/uL (140-400) Neutrophils (%) (Auto) 72 % (31-73) Lymphocytes (%) (Auto) 16 % (24-48) Monocytes (%) (Auto) 7 % (0-9) Eosinophils (%) (Auto) 5 % (0-3) Basophils (%) (Auto) 1 % (0-3) Neutrophils # (Auto) 7.6 x10^3uL (1.8-7.7) Lymphocytes # (Auto) 1.7 x10^3/uL (1.0-4.8) Monocytes # (Auto) 0.7 x10^3/uL (0.0-1.1) Eosinophils # (Auto) 0.5 x10^3/uL (0.0-0.7) Basophils # (Auto) 0.1 x10^3/uL (0.0-0.2) Glucose (Fingerstick) 121 mg/dL (70-99) 126 mg/dL (70-99) Sodium Level 138 mmol/L (136-145) Potassium Level 4.2 mmol/L (3.5-5.1) Chloride Level 103 mmol/L (98-107) Carbon Dioxide Level 26 mmol/L (21-32) Anion Gap 9 (6-14) Blood Urea Nitrogen 18 mg/dL (8-26) Creatinine 0.8 mg/dL (0.7-1.3) Estimated GFR (Cockcroft-Gault) 109.4 Glucose Level 124 mg/dL (70-99) Calcium Level 9.1 mg/dL (8.5-10.1) Laboratory Tests Test 03/16/18 17:28 03/16/18 21:05 03/17/18 06:30 03/17/18 07:47 Glucose (Fingerstick) 136 mg/dL (70-99) 145 mg/dL (70-99) 121 mg/dL (70-99) White Blood Count 10.6 x10^3/uL (4.0-11.0) Red Blood Count 3.87 x10^6/uL (4.30-5.70) Hemoglobin 11.9 g/dL (13.0-17.5) Hematocrit 36.3 % (39.0-53.0) Mean Corpuscular Volume 94 fL (79-100) Mean Corpuscular Hemoglobin 31 pg (25-35) Mean Corpuscular Hemoglobin Concent 33 g/dL (31-37) Red Cell Distribution Width 14.2 % (11.5-14.5) Platelet Count 566 x10^3/uL (140-400) Neutrophils (%) (Auto) 72 % (31-73) Lymphocytes (%) (Auto) 16 % (24-48) Monocytes (%) (Auto) 7 % (0-9) Eosinophils (%) (Auto) 5 % (0-3) Basophils (%) (Auto) 1 % (0-3) Neutrophils # (Auto) 7.6 x10^3uL (1.8-7.7) Lymphocytes # (Auto) 1.7 x10^3/uL (1.0-4.8) Monocytes # (Auto) 0.7 x10^3/uL (0.0-1.1) Eosinophils # (Auto) 0.5 x10^3/uL (0.0-0.7) Basophils # (Auto) 0.1 x10^3/uL (0.0-0.2) Test 03/17/18 08:11 03/17/18 11:15 Sodium Level 138 mmol/L (136-145) Potassium Level 4.2 mmol/L (3.5-5.1) Chloride Level 103 mmol/L (98-107) Carbon Dioxide Level 26 mmol/L (21-32) Anion Gap 9 (6-14) Blood Urea Nitrogen 18 mg/dL (8-26) Creatinine 0.8 mg/dL (0.7-1.3) Estimated GFR (Cockcroft-Gault) 109.4 Glucose Level 124 mg/dL (70-99) Calcium Level 9.1 mg/dL (8.5-10.1) Glucose (Fingerstick) 126 mg/dL (70-99) Microbiology 03/09/18 Blood Culture - Final, Complete NO GROWTH AFTER 5 DAYS Medications Current Medications Sodium Chloride (Normal Saline Flush) 3 ml QSHIFT PRN IV AFTER MEDS AND BLOOD DRAWS; Start 03/07/18 at 11:00 Sodium Chloride 1,000 ml @ 1,000 mls/hr Q1H IV Last administered on 03/07/18at 11:32; Start 03/07/18 at 11:00; Stop 03/07/18 at 11:59; Status DC Iohexol (Omnipaque 300 Mg/ml) 75 ml 1X ONCE IV Last administered on 03/07/18at 12:46; Start 03/07/18 at 11:15; Stop 03/07/18 at 11:16; Status DC Info (CONTRAST GIVEN -- Rx MONITORING) 1 each PRN DAILY PRN MC SEE COMMENTS; Start 03/07/18 at 11:15; Stop 03/09/18 at 11:14; Status DC Sodium Chloride 1,000 ml @ 1,000 mls/hr 1X ONCE IV Last administered on at 12:37; Start 03/07/18 at 12:00; Stop 03/07/18 at 12:59; Status DC Fentanyl Citrate (Fentanyl 2ml Vial) 50 mcg 1X ONCE IV Last administered on 03/07/18at 13:07; Start 03/07/18 at 13:00; Stop 03/07/18 at 13:01; Status DC Metronidazole 100 ml @ 100 mls/hr 1X ONCE IV ; Start 03/07/18 at 13:30; Stop at 14:29; Status DC Ciprofloxacin/ Dextrose 200 ml @ 200 mls/hr ONCE STAT IV Last administered on 03/07/18at 13:42; Start 03/07/18 at 13:12; Stop 03/07/18 at 14:11; Status DC Piperacillin Sod/ Tazobactam Sod 3.375 gm/Sodium Chloride 50 ml @ 100 mls/hr 1X ONCE IV Last administered on 03/07/18at 14:43; Start 03/07/18 at 14:30; Stop 03/07/18 at 14:59; Status DC Diphenhydramine HCl (Benadryl) 50 mg 1X ONCE IVP Last administered on at 14:33; Start 03/07/18 at 14:15; Stop 03/07/18 at 14:16; Status DC Fentanyl Citrate (Fentanyl 2ml Vial) 25 mcg 1X ONCE IV ; Start 03/07/18 at 14:15 ; Stop 03/07/18 at 14:16; Status Cancel Morphine Sulfate (Morphine Sulfate) 4 mg 1X ONCE IV Last administered on at 14:35; Start 03/07/18 at 14:30; Stop 03/07/18 at 14:31; Status DC Ondansetron HCl (Zofran) 4 mg PRN Q8HRS PRN IV NAUSEA/VOMITING; Start 03/07/18 at 14:30; Stop 03/08/18 at 14:29; Status DC Morphine Sulfate (Morphine Sulfate) 4 mg PRN Q2HR PRN IV PAIN Last administered on 03/08/18at 08:20; Start 03/07/18 at 14:30; Stop 03/08/18 at 14:29; Status DC Piperacillin Sod/ Tazobactam Sod 3.375 gm/Sodium Chloride 50 ml @ 100 mls/hr Q6HRS IV Last administered on 03/17/18at 12:02; Start 03/07/18 at 18:00 Metronidazole 100 ml @ 100 mls/hr Q8HRS IV Last administered on 03/09/18at 11:19 ; Start 03/07/18 at 22:00; Stop 03/09/18 at 15:10; Status DC Sodium Chloride 500 ml @ 500 mls/hr 1X ONCE IV Last administered on 03/07/18at 16:45; Start 03/07/18 at 16:45; Stop 03/07/18 at 17:44; Status DC Amino Acids/ Glycerin/ Electrolytes 1,000 ml @ 80 mls/hr [id number] IV Last administered on 03/11/18at 07:47; Start 03/07/18 at 16:45; Stop 03/11/18 at 20:21; Status DC Acetaminophen (Tylenol) 650 mg PRN Q6HRS PRN PO fever Last administered on 07/23at 03:58; Start 03/07/18 at 18:00 Pantoprazole Sodium (PROTONIX VIAL for IV PUSH) 40 mg DAILYAC IVP Last administered on 03/14/18at 08:10; Start 03/08/18 at 07:45; Stop 03/14/18 at 17:45; Status DC Morphine Sulfate (Morphine Sulfate) 4 mg PRN Q2HR PRN IV MODRATE-SEVERE PAIN 2ND CHOICE Last administered on 03/15/18at 22:01; Start 03/08/18 at 14:45 Lorazepam (Ativan) 1 mg PRN Q4HRS PRN IV ANXIETY / AGITATION Last administered on 03/17/18at 04:02; Start 03/08/18 at 20:30 Ondansetron HCl (Zofran) 4 mg PRN Q6HRS PRN IV NAUSEA/VOMITING 1ST CHOICE Last administered on 03/14/18at 12:16; Start 03/09/18 at 02:00 Etomidate (Amidate) 20 mg STK-MED ONCE IV ; Start 03/09/18 at 06:55; Stop at 06:56; Status DC Norepinephrine Bitartrate 250 ml @ As Directed STK-MED ONCE IV ; Start 03/09/18 at 06:55; Stop 03/09/18 at 06:56; Status DC Midazolam HCl (Versed) 5 mg STK-MED ONCE .ROUTE ; Start 03/09/18 at 06:55; Stop 03/09/18 at 06:56; Status DC Fentanyl Citrate (Fentanyl 2ml Vial) 100 mcg STK-MED ONCE .ROUTE ; Start at 06:55; Stop 03/09/18 at 06:56; Status DC Succinylcholine Chloride (Anectine) 200 mg STK-MED ONCE .ROUTE ; Start 03/09/18 at 06:56; Stop 03/09/18 at 06:57; Status DC Fentanyl Citrate 30 ml @ 0 mls/hr CONT PRN IV PER PROTOCOL Last administered on 03/13/18at 03:06; Start 03/09/18 at 07:00; Stop 03/13/18 at 16:35; Status DC Fentanyl Citrate (Fentanyl 2ml Vial) 25 mcg PRN Q1HR PRN IV MILD PAIN; Start at 07:00 Fentanyl Citrate (Fentanyl 2ml Vial) 50 mcg PRN Q1HR PRN IV MOD TO SEVERE PAIN ; Start 03/09/18 at 07:00 Chlorhexidine Gluconate (Peridex) 15 ml BID MM Last administered on 03/14/18at 08 :11; Start 03/09/18 at 09:00; Stop 03/15/18 at 07:33; Status DC Midazolam HCl (Versed) 2 mg PRN Q30MIN PRN IV SEDATION; Start 03/09/18 at 07:00 ; Stop 03/10/18 at 10:26; Status DC Midazolam HCl 100 ml @ 0 mls/hr CONT PRN IV PER PROTOCOL Last administered on at 14:07; Start 03/09/18 at 07:00; Stop 03/13/18 at 16:35; Status DC Enoxaparin Sodium (Lovenox 40mg Syringe) 40 mg Q12H SQ Last administered on 03/10at 09:31; Start 03/09/18 at 09:00; Stop 03/10/18 at 12:01; Status DC Sodium Chloride 1,000 ml @ 75 mls/hr [id number] IV Last administered on 03/14/18at 02:48; Start 03/09/18 at 10:15; Stop 03/14/18 at 10:32; Status DC Sodium Chloride 1,000 ml @ 1,000 mls/hr 1X ONCE IV Last administered on at 10:15; Start 03/09/18 at 10:15; Stop 03/09/18 at 11:14; Status DC Norepinephrine Bitartrate 250 ml @ As Directed STK-MED ONCE IV ; Start 03/09/18 at 10:37; Stop 03/09/18 at 10:38; Status DC Phenylephrine HCl 20 mg/Sodium Chloride 252 ml @ 22.68 mls/ hr 1X ONCE IV ; Start 03/09/18 at 10:45; Stop 03/09/18 at 21:51; Status DC Iohexol (Omnipaque 300 Mg/ml) 75 ml 1X ONCE IV ; Start 03/09/18 at 11:30; Stop 03/09/18 at 11:35; Status DC Micafungin Sodium 100 mg/Dextrose 100 ml @ 100 mls/hr Q24H IV Last administered on 03/16/18at 16:15; Start 03/09/18 at 16:00 Linezolid/Dextrose 300 ml @ 300 mls/hr Q12H IV Last administered on 03/14/18at 04:58; Start 03/09/18 at 17:00; Stop 03/14/18 at 09:14; Status DC Norepinephrine Bitartrate 250 ml @ 1.875 mls/ hr CONT PRN IV SEE I/O RECORD Last administered on 03/09/18at 16:18; Start 03/09/18 at 16:00; Stop 03/15/18 at 12 :46; Status DC Furosemide (Lasix) 40 mg 1X ONCE IVP Last administered on 03/10/18at 08:49; Start 03/10/18 at 09:00; Stop 03/10/18 at 09:01; Status DC Perflutren Protein Type A Microsphe (Optison) 0.66 mg STK-MED ONCE IV ; Start at 10:23; Stop 03/10/18 at 10:25; Status DC Enoxaparin Sodium (Lovenox Per Pharmacy Treatment Dosing) 1 each PRN DAILY PRN MC SEE COMMENTS; Start 03/10/18 at 12:00; Stop 03/11/18 at 12:50; Status DC Enoxaparin Sodium (Lovenox 150mg Syringe) 130 mg Q12H SQ Last administered on at 07:48; Start 03/10/18 at 21:00; Stop 03/11/18 at 12:51; Status DC Enoxaparin Sodium (Lovenox 100mg Syringe) 90 mg 1X ONCE SQ Last administered on 03/10/18at 13:53; Start 03/10/18 at 12:30; Stop 03/10/18 at 12:31; Status DC Perflutren Protein Type A Microsphe (Optison) 0.66 mg 1X ONCE IV Last administered on 03/10/18at 12:55; Start 03/10/18 at 13:00; Stop 03/10/18 at 13:01; Status DC Iohexol (Omnipaque 300 Mg/ml) 75 ml 1X ONCE IV Last administered on 03/11/18at 10:00; Start 03/11/18 at 09:00; Stop 03/11/18 at 09:01; Status DC Info (CONTRAST GIVEN -- Rx MONITORING) 1 each PRN DAILY PRN MC SEE COMMENTS; Start 03/11/18 at 09:00; Stop 03/13/18 at 08:59; Status DC Norepinephrine Bitartrate (Levophed 8mg/ 250ml Premix Drip) 8 mg STK-MED ONCE IV ; Start 03/09/18 at 07:00; Stop 03/11/18 at 08:58; Status DC Insulin Human Lispro (HumaLOG) 0-5 UNITS TIDWMEALS SQ Last administered on 03/16at 09:13; Start 03/11/18 at 12:00 Dextrose (Dextrose 50%-Water Syringe) 12.5 gm PRN Q15MIN PRN IV SEE COMMENTS; Start 03/11/18 at 09:15 Potassium Chloride/Water 50 ml @ 50 mls/hr 1X ONCE IV Last administered on 03/11at 09:43; Start 03/11/18 at 10:00; Stop 03/11/18 at 10:59; Status DC Info (Anti-Coagulation Monitoring By Pharmacy) 1 each PRN DAILY PRN MC SEE COMMENTS; Start 03/11/18 at 09:30; Stop 03/11/18 at 12:51; Status DC Info (Tpn Per Pharmacy) 1 each PRN DAILY PRN MC SEE COMMENTS Last administered on 03/16/18at 14:53; Start 03/11/18 at 11:15 Magnesium Sulfate 50 ml @ 25 mls/hr 1X ONCE IV Last administered on 03/11/18at 15:09; Start 03/11/18 at 16:00; Stop 03/11/18 at 17:59; Status DC Potassium Phosphate 13.6 mmol/Dextrose 104.5333 ml @ 52.267 m... ONCE ONCE IV Last administered on 03/11/18at 17:11; Start 03/11/18 at 18:00; Stop 03/11/18 at 19:59; Status DC Norepinephrine Bitartrate (Levophed 8mg/ 250ml Premix Drip) 8 mg STK-MED ONCE IV ; Start 03/09/18 at 11:00; Stop 03/11/18 at 12:37; Status DC Enoxaparin Sodium (Lovenox 40mg Syringe) 40 mg Q12HR SQ Last administered on 07/23at 09:07; Start 03/11/18 at 21:00 Sodium Chloride 90 meq/Potassium Chloride 50 meq/ Potassium Phosphate 13.6 mmol/ Magnesium Sulfate 10 meq/ Multivitamins 10 ml/Chromium/ Copper/Manganese/ Seleni /Zn 1 ml/ Total Parenteral Nutrition/Amino Acids/Dextrose/ Fat Emulsion Intravenous 1,800 ml @ 75 mls/hr TPN CONT IV Last administered on 03/11/18at 21 :44; Start 03/11/18 at 22:00; Stop 03/12/18 at 21:59; Status DC Potassium Chloride/Water 50 ml @ 50 mls/hr 1X ONCE IV Last administered on 03/12at 10:40; Start 03/12/18 at 09:30; Stop 03/12/18 at 10:29; Status DC Sodium Chloride 90 meq/Potassium Acetate 70 meq/ Potassium Phosphate 10 mmol/ Magnesium Sulfate 10 meq/ Multivitamins 10 ml/Chromium/ Copper/Manganese/ Seleni /Zn 1 ml/ Total Parenteral Nutrition/Amino Acids/Dextrose/ Fat Emulsion Intravenous 1,800 ml @ 75 mls/hr TPN CONT IV ; Start 03/12/18 at 22:00; Stop at 22:00; Status DC Sodium Chloride 90 meq/Potassium Chloride 70 meq/ Potassium Phosphate 10 mmol/ Magnesium Sulfate 10 meq/ Multivitamins 10 ml/Chromium/ Copper/Manganese/ Seleni /Zn 1 ml/ Total Parenteral Nutrition/Amino Acids/Dextrose/ Fat Emulsion Intravenous 1,800 ml @ 75 mls/hr TPN CONT IV Last administered on 03/12/18at 21 :41; Start 03/12/18 at 22:00; Stop 03/13/18 at 21:59; Status DC Benzocaine (Hurricaine One) 1 spray 1X ONCE MM ; Start 03/13/18 at 12:45; Stop 03/13/18 at 12:45; Status DC Promethazine HCl/ Codeine (Phenergan With Codeine) 5 ml PRN Q6HRS PRN PO COUGH Last administered on 03/14/18at 08:10; Start 03/13/18 at 12:45 Benzocaine (Hurricaine One) 1 spray 1X ONCE MM ; Start 03/13/18 at 12:45; Stop 03/13/18 at 12:45; Status DC Benzocaine (Hurricaine One) 1 spray 1X ONCE MM Last administered on 03/13/18at 16:11; Start 03/13/18 at 12:45; Stop 03/13/18 at 12:46; Status DC Sodium Chloride 90 meq/Potassium Chloride 70 meq/ Potassium Phosphate 13.6 mmol/ Magnesium Sulfate 10 meq/ Multivitamins 10 ml/Chromium/ Copper/Manganese/ Seleni /Zn 1 ml/ Total Parenteral Nutrition/Amino Acids/Dextrose/ Fat Emulsion Intravenous 1,800 ml @ 75 mls/hr TPN CONT IV Last administered on 03/13/18at 21 :53; Start 03/13/18 at 22:00; Stop 03/14/18 at 21:59; Status DC Propofol 100 ml @ As Directed STK-MED ONCE IV ; Start 03/13/18 at 15:47; Stop at 15:48; Status DC Propofol 100 ml @ 0 mls/hr CONT PRN IV PER PROTOCOL Last administered on at 05:04; Start 03/13/18 at 16:45; Stop 03/14/18 at 17:45; Status DC Hydralazine HCl (Apresoline Inj) 10 mg PRN Q4HRS PRN IVP ELEVATED BP, SEE COMMENTS Last administered on 03/15/18at 11:37; Start 03/14/18 at 09:00 Albuterol/ Ipratropium (Duoneb) 3 ml RTQID NEB Last administered on 03/15/18at 08:27; Start 03/14/18 at 12:00; Stop 03/15/18 at 11:01; Status DC Albuterol/ Ipratropium (Duoneb) 3 ml 1X ONCE NEB Last administered on at 09:36; Start 03/14/18 at 09:30; Stop 03/14/18 at 09:31; Status DC Dexmedetomidine HCl 200 mcg/ Sodium Chloride 50 ml @ 0 mls/hr CONT PRN IV PER PROTOCOL Last administered on 03/14/18at 14:17; Start 03/14/18 at 10:30; Stop 03/15 at 07:33; Status DC Sodium Chloride 500 ml @ 500 mls/hr 1X PRN PRN IV SEE COMMENTS; Start 03/14/18 at 10:30 Atropine Sulfate (ATROPINE 0.5mg SYRINGE) 0.5 mg PRN Q5MIN PRN IV SEE COMMENTS ; Start 03/14/18 at 10:30 Furosemide (Lasix) 40 mg 1X ONCE IVP Last administered on 03/14/18at 10:45; Start 03/14/18 at 10:30; Stop 03/14/18 at 10:31; Status DC Sodium Chloride 90 meq/Potassium Chloride 70 meq/ Potassium Phosphate 13.6 mmol/ Magnesium Sulfate 10 meq/ Multivitamins 10 ml/Chromium/ Copper/Manganese/ Seleni /Zn 1 ml/ Total Parenteral Nutrition/Amino Acids/Dextrose/ Fat Emulsion Intravenous 1,800 ml @ 75 mls/hr TPN CONT IV Last administered on 03/14/18at 22 :33; Start 03/14/18 at 22:00; Stop 03/15/18 at 21:59; Status DC Pantoprazole Sodium (PROTONIX VIAL for IV PUSH) 40 mg BID IVP Last administered on 03/17/18at 09:09; Start 03/15/18 at 09:00; Stop 03/17/18 at 14:19 ; Status DC Iohexol (Omnipaque 300 Mg/ml) 75 ml 1X ONCE IV Last administered on 03/15/18at 06:15; Start 03/15/18 at 06:15; Stop 03/15/18 at 06:16; Status DC Iohexol (Omnipaque 240 Mg/ml) 50 ml 1X ONCE PO Last administered on 03/15/18at 06:15; Start 03/15/18 at 06:15; Stop 03/15/18 at 06:16; Status DC Info (CONTRAST GIVEN -- Rx MONITORING) 1 each PRN DAILY PRN MC SEE COMMENTS; Start 03/15/18 at 06:15; Stop 03/17/18 at 06:14; Status DC Labetalol HCl (Normodyne) 20 mg PRN Q2HR PRN IVP HYPERTENSION, SEE COMMENTS Last administered on 03/15/18at 09:46; Start 03/15/18 at 09:30 Ipratropium [place] (Atrovent) 0.5 mg 1X ONCE NEB ; Start 03/15/18 at 12:00; Stop 03/15/18 at 12:00; Status DC Ipratropium [place] (Atrovent) 0.5 mg RTQID NEB Last administered on 03/17/18at 12:11; Start 03/15/18 at 12:00 Metoprolol Tartrate (Lopressor Vial) 5 mg Q6HRS IVP Last administered on at 12:56; Start 03/15/18 at 12:00; Stop 03/15/18 at 18:14; Status DC Carvedilol (Coreg) 12.5 mg BIDWMEALS PO Last administered on 03/17/18at 09:08; Start 03/15/18 at 17:00 Sodium Chloride 90 meq/Potassium Chloride 70 meq/ Potassium Phosphate 5 mmol/ Magnesium Sulfate 10 meq/ Multivitamins 10 ml/Chromium/ Copper/Manganese/ Seleni /Zn 1 ml/ Total Parenteral Nutrition/Amino Acids/Dextrose/ Fat Emulsion Intravenous 1,800 ml @ 75 mls/hr TPN CONT IV Last administered on 03/15/18at 21:17; Start 03/15/18 at 22:00; Stop 03/16/18 at 21:59; Status DC Phenazopyridine HCl (Pyridium) 200 mg PRN TID PRN PO URINARY PAIN; Start at 11:15 Sodium Chloride 90 meq/Potassium Chloride 70 meq/ Potassium Phosphate 5 mmol/ Magnesium Sulfate 10 meq/ Multivitamins 10 ml/Chromium/ Copper/Manganese/ Seleni /Zn 1 ml/ Total Parenteral Nutrition/Amino Acids/Dextrose/ Fat Emulsion Intravenous 1,800 ml @ 75 mls/hr TPN CONT IV Last administered on 03/16/18at 20:27; Start 03/16/18 at 22:00; Stop 03/17/18 at 21:59 Pantoprazole Sodium (PROTONIX VIAL for IV PUSH) 40 mg DAILY IVP ; Start at 09:00 Active Scripts Active Reported Amlodipine Besylate 5 Mg Tablet 5 Mg PO DAILY Omeprazole 40 Mg Capsule. 1 Cap PO BID Vitals/I & O Vital Sign - Last 24 Hours 03/16/18 03/16/18 03/16/18 03/16/18 15:00 15:21 16:14 19:35 Temp 97.9 98.2 97.9 98.2 Pulse 84 86 80 Resp 18 26 B/P (MAP) 138/76 (96) 138/76 146/77 (100) Pulse Ox 92 93 O2 Delivery Nasal Cannula Nasal Cannula Room Air O2 Flow Rate 2.0 2.0 03/16/18 03/16/18 03/16/18 03/17/18 19:54 20:14 23:51 03:35 Temp 98.4 97.8 98.4 97.8 Pulse 80 87 Resp 24 B/P (MAP) 141/77 (98) 156/70 (98) Pulse Ox 96 94 94 O2 Delivery Nasal Cannula Room Air Nasal Cannula Nasal Cannula O2 Flow Rate 2.0 2.0 2.0 03/17/18 03/17/18 03/17/18 03/17/18 07:00 07:37 08:25 09:08 Temp 97.9 97.9 Pulse 87 85 Resp 24 B/P (MAP) 153/81 (105) 153/81 Pulse Ox 92 96 O2 Delivery Nasal Cannula Room Air Room Air O2 Flow Rate 2.0 03/17/18 03/17/18 11:00 12:11 Temp 98.5 98.5 Pulse 85 Resp 24 B/P (MAP) 125/80 (95) Pulse Ox 96 O2 Delivery Nasal Cannula Room Air O2 Flow Rate 2.0 Intake and Output 03/16/18 03/16/18 03/17/18 15:00 23:00 07:00 Intake Total 500 ml 675 ml Output Total 750 ml 725 ml Balance -250 ml -50 ml ANGEL SOLO MD Mar 17, 2018 14:28
[2018-03-17] MEDS: TPN PER PHARMACY MC PRN (14:38)
[2018-03-17 15:00] VITALS: BP 126/96
[2018-03-17] MEDS: MICAFUNGIN 100 MG in IV DEXTROSE 5% 100ML 100 ML IV SCH (15:51)
[2018-03-17 19:00] VITALS: BP 144/92
[2018-03-17] MEDS ORDERED: AMINO ACIDS IV SCH ×9 (22:00)
[2018-03-17] MEDS ORDERED: TOTAL PARENTERAL NUTRITION IV SCH ×9 (22:00)
[2018-03-17] MEDS ORDERED: DEXTROSE 70% IV SCH ×9 (22:00)
[2018-03-17] MEDS ORDERED: [UNRECOGNIZED DRUG - OTHER] IV SCH ×9 (22:00)
[2018-03-17 23:20] VITALS: BP 103/54
[2018-03-18] VITALS (7 sets, daily range): BP systolic 124–156; BP diastolic 57–100
[2018-03-18] MEDS: PIPERACILLIN/TAZOBACTAM 3.375 GM in IV NORMAL SALINE 50ML 50 ML IV SCH ×4 (05:06→23:14)
[2018-03-18 06:07] LABS: CREATININE 0.9 mg/dL (0.7-1.3); GFR 95.5
[2018-03-18] MEDS ORDERED: IOHEXOL 300 MG/ML 100ML VIAL. ONE (07:21)
[2018-03-18] MEDS ORDERED: LIDOCAINE 1% PF 30 ML VIAL. ONE (07:21)
[2018-03-18] MEDS: IV NORMAL SALINE 1000ML BAG 1,000 ML IV SCH ×2 (07:30→21:02)
[2018-03-18] MEDS: INSULIN LISPRO 300 UNITS/3 ML INSULN.PEN. SQ SCH ×3 (08:00→17:00)
[2018-03-18] MEDS: IPRATROPIUM BROMIDE 0.5 MG/2.5 ML NEBU. NEB SCH ×4 (08:05→20:15)
--- NOTE | 2018-03-18 08:35 | PDOC ---
Infectious Disease Note Subjective Subjective Doing well Had a good night No nausea/V/SOA/Rash. + BM and pain controlled ROS ROS no n/v/d/abd pain Vital Sign Vital Signs Vital Signs Date Time Temp Pulse Resp B/P (MAP) Pulse Ox O2 Delivery O2 Flow Rate FiO2 03/18/18 08:07 96 Room Air 03/18/18 03:00 97.8 87 20 136/86 (103) 2.5 97.8 Physical Exam PHYSICAL EXAM GENERAL: NAD, alert, looks really well, in bed HENT: PERRLA, Oc/Op -clear NECK: no JVD LUNGS: CTA CV: S1/S2 ABDOMEN: Obese, hypoactive but + bowel sounds, soft, no rebound/guard. less distension EXT: No gross edema or cyanosis. right groin dressing clean SKIN: warm without rash NEURO: - alert/appropriate/pleasant Right PICC line - clean Labs Lab Laboratory Tests Test 03/17/18 11:15 03/17/18 17:17 03/17/18 20:59 03/18/18 05:45 Glucose (Fingerstick) 126 mg/dL (70-99) 117 mg/dL (70-99) 100 mg/dL (70-99) Sodium Level 136 mmol/L (136-145) Potassium Level 4.0 mmol/L (3.5-5.1) Chloride Level 102 mmol/L (98-107) Carbon Dioxide Level 26 mmol/L (21-32) Anion Gap 8 (6-14) Blood Urea Nitrogen 20 mg/dL (8-26) Creatinine 0.9 mg/dL (0.7-1.3) Estimated GFR (Cockcroft-Gault) 95.5 Glucose Level 114 mg/dL (70-99) Calcium Level 9.0 mg/dL (8.5-10.1) Phosphorus Level 5.0 mg/dL (2.6-4.7) Magnesium Level 2.0 mg/dL (1.8-2.4) Test 03/18/18 07:35 Glucose (Fingerstick) 148 mg/dL (70-99) Micro Microbiology 03/09/18 Blood Culture - Final, Complete NO GROWTH AFTER 5 DAYS Objective Assessment Fever - better s/p code blue, 03/09 Sepsis w/ hypotension requiring vasopressor support previously but now off. - BC from 8/2 NGTD. Fever curve improving Leukocytosis - better Acute diverticulitis with microperforation -gen surgery following, on bowel rest - developing abscess on CT Allergy Cipro - rash RONNY Acute respiratory failure ? ARDS developing -improving per Dr. Galo Substance abuse. urine tox + cocaine and marijuana 03/07 & 03/09 PUD / GERD Etoh dependence Morbid obesity, BMI 41 Hypertension Recently hosp [facility] & EGD- ulcers Rx on omeprazole per Plan Plan of Care Clinically he is much improved Continue Zosyn and micafungin Await IR eval of CT Cardiac cath 03/18 Monitor labs/VSS D/w pt and in detail D/w RAFFI ALLEN MD Mar 18, 2018 08:35
[2018-03-18] MEDS: CARVEDILOL 12.5 MG TABLET. PO SCH ×2 (08:43→16:21)
--- NOTE | 2018-03-18 08:47 | PDOC ---
JANUSZ SMITH LEATHER SKINNER 03/18/18 0847: SURGICAL PROGRESS NOTE Subjective no pain no n/v waiting on cardiac test Vital Signs Vital Signs Date Time Temp Pulse Resp B/P (MAP) Pulse Ox O2 Delivery O2 Flow Rate FiO2 03/18/18 08:07 96 Room Air 03/18/18 07:00 97.7 89 22 156/90 (112) 97.7 03/18/18 03:00 2.5 I&O Intake and Output 03/18/18 07:00 Intake Total 1000 ml Output Total 1950 ml Balance -950 ml Intake Oral 1000 ml Output Urine Total 1950 ml General: Alert, Oriented X3, Cooperative, No acute distress Abdomen: Soft, No tenderness Labs Laboratory Tests Test 03/16/18 11:09 03/16/18 17:28 03/16/18 21:05 03/17/18 06:30 Glucose (Fingerstick) 147 mg/dL (70-99) 136 mg/dL (70-99) 145 mg/dL (70-99) White Blood Count 10.6 x10^3/uL (4.0-11.0) Red Blood Count 3.87 x10^6/uL (4.30-5.70) Hemoglobin 11.9 g/dL (13.0-17.5) Hematocrit 36.3 % (39.0-53.0) Mean Corpuscular Volume 94 fL (79-100) Mean Corpuscular Hemoglobin 31 pg (25-35) Mean Corpuscular Hemoglobin Concent 33 g/dL (31-37) Red Cell Distribution Width 14.2 % (11.5-14.5) Platelet Count 566 x10^3/uL (140-400) Neutrophils (%) (Auto) 72 % (31-73) Lymphocytes (%) (Auto) 16 % (24-48) Monocytes (%) (Auto) 7 % (0-9) Eosinophils (%) (Auto) 5 % (0-3) Basophils (%) (Auto) 1 % (0-3) Neutrophils # (Auto) 7.6 x10^3uL (1.8-7.7) Lymphocytes # (Auto) 1.7 x10^3/uL (1.0-4.8) Monocytes # (Auto) 0.7 x10^3/uL (0.0-1.1) Eosinophils # (Auto) 0.5 x10^3/uL (0.0-0.7) Basophils # (Auto) 0.1 x10^3/uL (0.0-0.2) Test 03/17/18 07:47 03/17/18 08:11 03/17/18 11:15 03/17/18 17:17 Glucose (Fingerstick) 121 mg/dL (70-99) 126 mg/dL (70-99) 117 mg/dL (70-99) Sodium Level 138 mmol/L (136-145) Potassium Level 4.2 mmol/L (3.5-5.1) Chloride Level 103 mmol/L (98-107) Carbon Dioxide Level 26 mmol/L (21-32) Anion Gap 9 (6-14) Blood Urea Nitrogen 18 mg/dL (8-26) Creatinine 0.8 mg/dL (0.7-1.3) Estimated GFR (Cockcroft-Gault) 109.4 Glucose Level 124 mg/dL (70-99) Calcium Level 9.1 mg/dL (8.5-10.1) Test 03/17/18 20:59 03/18/18 05:45 03/18/18 07:35 Glucose (Fingerstick) 100 mg/dL (70-99) 148 mg/dL (70-99) Sodium Level 136 mmol/L (136-145) Potassium Level 4.0 mmol/L (3.5-5.1) Chloride Level 102 mmol/L (98-107) Carbon Dioxide Level 26 mmol/L (21-32) Anion Gap 8 (6-14) Blood Urea Nitrogen 20 mg/dL (8-26) Creatinine 0.9 mg/dL (0.7-1.3) Estimated GFR (Cockcroft-Gault) 95.5 Glucose Level 114 mg/dL (70-99) Calcium Level 9.0 mg/dL (8.5-10.1) Phosphorus Level 5.0 mg/dL (2.6-4.7) Magnesium Level 2.0 mg/dL (1.8-2.4) Laboratory Tests Test 03/17/18 11:15 03/17/18 17:17 03/17/18 20:59 03/18/18 05:45 Glucose (Fingerstick) 126 mg/dL (70-99) 117 mg/dL (70-99) 100 mg/dL (70-99) Sodium Level 136 mmol/L (136-145) Potassium Level 4.0 mmol/L (3.5-5.1) Chloride Level 102 mmol/L (98-107) Carbon Dioxide Level 26 mmol/L (21-32) Anion Gap 8 (6-14) Blood Urea Nitrogen 20 mg/dL (8-26) Creatinine 0.9 mg/dL (0.7-1.3) Estimated GFR (Cockcroft-Gault) 95.5 Glucose Level 114 mg/dL (70-99) Calcium Level 9.0 mg/dL (8.5-10.1) Phosphorus Level 5.0 mg/dL (2.6-4.7) Magnesium Level 2.0 mg/dL (1.8-2.4) Test 03/18/18 07:35 Glucose (Fingerstick) 148 mg/dL (70-99) Problem List Problems Medical Problems: (1) Diverticulitis of colon with perforation Status: Acute Assessment/Plan clinically stable trial of diet once cardiac work up complete continue abx EVAN MCGHEE MD 03/18/18 1227: SURGICAL PROGRESS NOTE Assessment/Plan Reviewed, agree with above; reviewed CT scans with IR, good improvement; continue with medical management, abx per ID JANUSZ SMITH APRN Mar 18, 2018 08:47 EVAN MCGHEE MD Mar 18, 2018 12:27
[2018-03-18] MEDS: ENOXAPARIN 40 MG/0.4 ML SYRINGE. SQ SCH ×2 (08:51→21:01)
[2018-03-18] MEDS: PANTOPRAZOLE IV PUSH 40 MG VIAL. IVP SCH (08:51)
[2018-03-18] MEDS ORDERED: fentaNYL PF VIAL 100 MCG/2 ML VIAL ONE (10:12)
[2018-03-18] MEDS ORDERED: MIDAZOLAM HCL/PF 2 MG/2 ML VIAL. ONE (10:12)
[2018-03-18] MEDS ORDERED: NITROGLYCERIN 200 MCG/2 ML SYRINGE FOR CATH/VASC LAB. ONE (10:13)
[2018-03-18] MEDS ORDERED: VERAPAMIL 5 MG/2 ML VIAL. ONE (10:13)
[2018-03-18] MEDS ORDERED: HEPARIN for IV BOLUS 10,000 UNIT/10 ML VIAL. ONE (10:13)
[2018-03-18] MEDS: IV 1/2 NORMAL SALINE 1,000 ML IV SCH ×2 (10:42→21:03)
--- NOTE | 2018-03-18 10:42 | PDOC ---
MODERATE SEDATION ASSESSMENT RISKS/ALTERNATIVES Risks/Alternatives Risks and alternatives of this type of sedation and procedure discussed with: RISK/ALTERNATIVES: Patient H & P ON CHART H & P H & P on chart and reviewed for co-morbid conditions and appropriate labs. H&P ON CHART: Yes STATUS PREG STATUS ASSESSED: N/A MEDS/ALLERGIES REVIEWED Meds/Allergies Reviewed Medications and Allergies including time and route of recently administered narcotics and sedatives. MEDS/ALLERGIES REVIEWED: Yes ASA RATING ASA RATING: II AIRWAY ASSESSMENT Airway Assessment Airway patency, oral function limitations, presence of caps, crowns, dentures, partials, and ability to extend neck assessed. AIRWAY ASSESSMENT: Yes MALLAMPATI SCORE MALLAMPATI SCORE: II PRE-SEDATION ASSESSMENT PRE-SEDATION ASSESSMENT: Yes SARAH AVILA MD Mar 18, 2018 10:42
[2018-03-18] MEDS ORDERED: fentaNYL PF VIAL 100 MCG/2 ML VIAL IV ONE (10:45)
[2018-03-18] MEDS ORDERED: CONTRAST GIVEN. MC PRN (10:45)
[2018-03-18] MEDS ORDERED: HEPARIN for IV BOLUS 10,000 UNIT/10 ML VIAL. IART ONE (10:45)
[2018-03-18] MEDS ORDERED: MIDAZOLAM HCL/PF 2 MG/2 ML VIAL. IV ONE (10:45)
[2018-03-18] MEDS ORDERED: IOHEXOL 300 MG/ML 100ML VIAL. IART ONE (10:45)
[2018-03-18] MEDS ORDERED: NITROGLYCERIN SUBLINGUAL 0.4 MG BOTTLE OF 25. SL PRN (10:45)
[2018-03-18] MEDS ORDERED: NITROGLYCERIN 200 MCG/2 ML SYRINGE FOR CATH/VASC LAB. IART ONE (10:45)
[2018-03-18] MEDS ORDERED: VERAPAMIL 5 MG/2 ML VIAL. IART ONE (10:45)
[2018-03-18] MEDS ORDERED: LIDOCAINE 2% 20 ML VIAL. IJ ONE (10:45)
--- NOTE | 2018-03-18 11:45 | PDOC ---
PROGRESS NOTES Chief Complaint Chief Complaint status post cardiac arrest, nonsustained V. 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% hypokalemia History of Present Illness History of Present Illness pt seen and examined VSS is with pt in room, pt is in no abd pain Awaiting Angio results Vitals Vitals Vital Signs Date Time Temp Pulse Resp B/P (MAP) Pulse Ox O2 Delivery O2 Flow Rate FiO2 03/18/18 10:48 82 20 93 Nasal Cannula 2.0 03/18/18 08:43 156/90 03/18/18 07:00 97.7 97.7 Physical Exam General: Alert, Oriented X3, Cooperative, No acute distress Heart: Regular rate, Normal S1, Normal S2 Lungs: Clear Abdomen: Normal bowel sounds, Soft, No tenderness Extremities: No clubbing, No cyanosis, No edema Skin: No rashes, No breakdown Labs LABS Laboratory Tests Test 03/17/18 17:17 03/17/18 20:59 03/18/18 05:45 03/18/18 07:35 Glucose (Fingerstick) 117 mg/dL (70-99) 100 mg/dL (70-99) 148 mg/dL (70-99) Sodium Level 136 mmol/L (136-145) Potassium Level 4.0 mmol/L (3.5-5.1) Chloride Level 102 mmol/L (98-107) Carbon Dioxide Level 26 mmol/L (21-32) Anion Gap 8 (6-14) Blood Urea Nitrogen 20 mg/dL (8-26) Creatinine 0.9 mg/dL (0.7-1.3) Estimated GFR (Cockcroft-Gault) 95.5 Glucose Level 114 mg/dL (70-99) Calcium Level 9.0 mg/dL (8.5-10.1) Phosphorus Level 5.0 mg/dL (2.6-4.7) Magnesium Level 2.0 mg/dL (1.8-2.4) Review of Systems Review of Systems no bloody stools no fever Assessment and Plan Assessmemt and Plan Assessment: status post cardiac arrest, nonsustained V. 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% hypokalemia Plan: TPN Advance to clear liquid diet if ok with subspecialist Cardiac monitoring Abx per ID- Micafungin and Zosyn labs PTOT Comment Review of Relevant I have reviewed the following items kalin (where applicable) has been applied. Labs Laboratory Tests Test 03/16/18 17:28 03/16/18 21:05 03/17/18 06:30 03/17/18 07:47 Glucose (Fingerstick) 136 mg/dL (70-99) 145 mg/dL (70-99) 121 mg/dL (70-99) White Blood Count 10.6 x10^3/uL (4.0-11.0) Red Blood Count 3.87 x10^6/uL (4.30-5.70) Hemoglobin 11.9 g/dL (13.0-17.5) Hematocrit 36.3 % (39.0-53.0) Mean Corpuscular Volume 94 fL (79-100) Mean Corpuscular Hemoglobin 31 pg (25-35) Mean Corpuscular Hemoglobin Concent 33 g/dL (31-37) Red Cell Distribution Width 14.2 % (11.5-14.5) Platelet Count 566 x10^3/uL (140-400) Neutrophils (%) (Auto) 72 % (31-73) Lymphocytes (%) (Auto) 16 % (24-48) Monocytes (%) (Auto) 7 % (0-9) Eosinophils (%) (Auto) 5 % (0-3) Basophils (%) (Auto) 1 % (0-3) Neutrophils # (Auto) 7.6 x10^3uL (1.8-7.7) Lymphocytes # (Auto) 1.7 x10^3/uL (1.0-4.8) Monocytes # (Auto) 0.7 x10^3/uL (0.0-1.1) Eosinophils # (Auto) 0.5 x10^3/uL (0.0-0.7) Basophils # (Auto) 0.1 x10^3/uL (0.0-0.2) Test 03/17/18 08:11 03/17/18 11:15 03/17/18 17:17 03/17/18 20:59 Sodium Level 138 mmol/L (136-145) Potassium Level 4.2 mmol/L (3.5-5.1) Chloride Level 103 mmol/L (98-107) Carbon Dioxide Level 26 mmol/L (21-32) Anion Gap 9 (6-14) Blood Urea Nitrogen 18 mg/dL (8-26) Creatinine 0.8 mg/dL (0.7-1.3) Estimated GFR (Cockcroft-Gault) 109.4 Glucose Level 124 mg/dL (70-99) Calcium Level 9.1 mg/dL (8.5-10.1) Glucose (Fingerstick) 126 mg/dL (70-99) 117 mg/dL (70-99) 100 mg/dL (70-99) Test 03/18/18 05:45 03/18/18 07:35 Sodium Level 136 mmol/L (136-145) Potassium Level 4.0 mmol/L (3.5-5.1) Chloride Level 102 mmol/L (98-107) Carbon Dioxide Level 26 mmol/L (21-32) Anion Gap 8 (6-14) Blood Urea Nitrogen 20 mg/dL (8-26) Creatinine 0.9 mg/dL (0.7-1.3) Estimated GFR (Cockcroft-Gault) 95.5 Glucose Level 114 mg/dL (70-99) Calcium Level 9.0 mg/dL (8.5-10.1) Phosphorus Level 5.0 mg/dL (2.6-4.7) Magnesium Level 2.0 mg/dL (1.8-2.4) Glucose (Fingerstick) 148 mg/dL (70-99) Laboratory Tests Test 03/17/18 17:17 03/17/18 20:59 03/18/18 05:45 03/18/18 07:35 Glucose (Fingerstick) 117 mg/dL (70-99) 100 mg/dL (70-99) 148 mg/dL (70-99) Sodium Level 136 mmol/L (136-145) Potassium Level 4.0 mmol/L (3.5-5.1) Chloride Level 102 mmol/L (98-107) Carbon Dioxide Level 26 mmol/L (21-32) Anion Gap 8 (6-14) Blood Urea Nitrogen 20 mg/dL (8-26) Creatinine 0.9 mg/dL (0.7-1.3) Estimated GFR (Cockcroft-Gault) 95.5 Glucose Level 114 mg/dL (70-99) Calcium Level 9.0 mg/dL (8.5-10.1) Phosphorus Level 5.0 mg/dL (2.6-4.7) Magnesium Level 2.0 mg/dL (1.8-2.4) Microbiology 03/09/18 Blood Culture - Final, Complete NO GROWTH AFTER 5 DAYS Medications Current Medications Sodium Chloride (Normal Saline Flush) 3 ml QSHIFT PRN IV AFTER MEDS AND BLOOD DRAWS; Start 03/07/18 at 11:00 Sodium Chloride 1,000 ml @ 1,000 mls/hr Q1H IV Last administered on 03/07/18at 11:32; Start 03/07/18 at 11:00; Stop 03/07/18 at 11:59; Status DC Iohexol (Omnipaque 300 Mg/ml) 75 ml 1X ONCE IV Last administered on 03/07/18at 12:46; Start 03/07/18 at 11:15; Stop 03/07/18 at 11:16; Status DC Info (CONTRAST GIVEN -- Rx MONITORING) 1 each PRN DAILY PRN MC SEE COMMENTS; Start 03/07/18 at 11:15; Stop 03/09/18 at 11:14; Status DC Sodium Chloride 1,000 ml @ 1,000 mls/hr 1X ONCE IV Last administered on at 12:37; Start 03/07/18 at 12:00; Stop 03/07/18 at 12:59; Status DC Fentanyl Citrate (Fentanyl 2ml Vial) 50 mcg 1X ONCE IV Last administered on 03/07/18at 13:07; Start 03/07/18 at 13:00; Stop 03/07/18 at 13:01; Status DC Metronidazole 100 ml @ 100 mls/hr 1X ONCE IV ; Start 03/07/18 at 13:30; Stop at 14:29; Status DC Ciprofloxacin/ Dextrose 200 ml @ 200 mls/hr ONCE STAT IV Last administered on 03/07/18at 13:42; Start 03/07/18 at 13:12; Stop 03/07/18 at 14:11; Status DC Piperacillin Sod/ Tazobactam Sod 3.375 gm/Sodium Chloride 50 ml @ 100 mls/hr 1X ONCE IV Last administered on 03/07/18at 14:43; Start 03/07/18 at 14:30; Stop 03/07/18 at 14:59; Status DC Diphenhydramine HCl (Benadryl) 50 mg 1X ONCE IVP Last administered on at 14:33; Start 03/07/18 at 14:15; Stop 03/07/18 at 14:16; Status DC Fentanyl Citrate (Fentanyl 2ml Vial) 25 mcg 1X ONCE IV ; Start 03/07/18 at 14:15 ; Stop 03/07/18 at 14:16; Status Cancel Morphine Sulfate (Morphine Sulfate) 4 mg 1X ONCE IV Last administered on at 14:35; Start 03/07/18 at 14:30; Stop 03/07/18 at 14:31; Status DC Ondansetron HCl (Zofran) 4 mg PRN Q8HRS PRN IV NAUSEA/VOMITING; Start 03/07/18 at 14:30; Stop 03/08/18 at 14:29; Status DC Morphine Sulfate (Morphine Sulfate) 4 mg PRN Q2HR PRN IV PAIN Last administered on 03/08/18at 08:20; Start 03/07/18 at 14:30; Stop 03/08/18 at 14:29; Status DC Piperacillin Sod/ Tazobactam Sod 3.375 gm/Sodium Chloride 50 ml @ 100 mls/hr Q6HRS IV Last administered on 03/18/18at 05:06; Start 03/07/18 at 18:00 Metronidazole 100 ml @ 100 mls/hr Q8HRS IV Last administered on 03/09/18at 11:19 ; Start 03/07/18 at 22:00; Stop 03/09/18 at 15:10; Status DC Sodium Chloride 500 ml @ 500 mls/hr 1X ONCE IV Last administered on 03/07/18at 16:45; Start 03/07/18 at 16:45; Stop 03/07/18 at 17:44; Status DC Amino Acids/ Glycerin/ Electrolytes 1,000 ml @ 80 mls/hr [id number] IV Last administered on 03/11/18at 07:47; Start 03/07/18 at 16:45; Stop 03/11/18 at 20:21; Status DC Acetaminophen (Tylenol) 650 mg PRN Q6HRS PRN PO fever Last administered on 07/23at 20:26; Start 03/07/18 at 18:00 Pantoprazole Sodium (PROTONIX VIAL for IV PUSH) 40 mg DAILYAC IVP Last administered on 03/14/18at 08:10; Start 03/08/18 at 07:45; Stop 03/14/18 at 17:45; Status DC Morphine Sulfate (Morphine Sulfate) 4 mg PRN Q2HR PRN IV MODRATE-SEVERE PAIN 2ND CHOICE Last administered on 03/15/18at 22:01; Start 03/08/18 at 14:45 Lorazepam (Ativan) 1 mg PRN Q4HRS PRN IV ANXIETY / AGITATION Last administered on 03/17/18at 20:06; Start 03/08/18 at 20:30 Ondansetron HCl (Zofran) 4 mg PRN Q6HRS PRN IV NAUSEA/VOMITING 1ST CHOICE Last administered on 03/14/18at 12:16; Start 03/09/18 at 02:00 Etomidate (Amidate) 20 mg STK-MED ONCE IV ; Start 03/09/18 at 06:55; Stop at 06:56; Status DC Norepinephrine Bitartrate 250 ml @ As Directed STK-MED ONCE IV ; Start 03/09/18 at 06:55; Stop 03/09/18 at 06:56; Status DC Midazolam HCl (Versed) 5 mg STK-MED ONCE .ROUTE ; Start 03/09/18 at 06:55; Stop 03/09/18 at 06:56; Status DC Fentanyl Citrate (Fentanyl 2ml Vial) 100 mcg STK-MED ONCE .ROUTE ; Start at 06:55; Stop 03/09/18 at 06:56; Status DC Succinylcholine Chloride (Anectine) 200 mg STK-MED ONCE .ROUTE ; Start 03/09/18 at 06:56; Stop 03/09/18 at 06:57; Status DC Fentanyl Citrate 30 ml @ 0 mls/hr CONT PRN IV PER PROTOCOL Last administered on 03/13/18at 03:06; Start 03/09/18 at 07:00; Stop 03/13/18 at 16:35; Status DC Fentanyl Citrate (Fentanyl 2ml Vial) 25 mcg PRN Q1HR PRN IV MILD PAIN; Start at 07:00 Fentanyl Citrate (Fentanyl 2ml Vial) 50 mcg PRN Q1HR PRN IV MOD TO SEVERE PAIN ; Start 03/09/18 at 07:00 Chlorhexidine Gluconate (Peridex) 15 ml BID MM Last administered on 03/14/18at 08 :11; Start 03/09/18 at 09:00; Stop 03/15/18 at 07:33; Status DC Midazolam HCl (Versed) 2 mg PRN Q30MIN PRN IV SEDATION; Start 03/09/18 at 07:00 ; Stop 03/10/18 at 10:26; Status DC Midazolam HCl 100 ml @ 0 mls/hr CONT PRN IV PER PROTOCOL Last administered on at 14:07; Start 03/09/18 at 07:00; Stop 03/13/18 at 16:35; Status DC Enoxaparin Sodium (Lovenox 40mg Syringe) 40 mg Q12H SQ Last administered on 03/10at 09:31; Start 03/09/18 at 09:00; Stop 03/10/18 at 12:01; Status DC Sodium Chloride 1,000 ml @ 75 mls/hr [id number] IV Last administered on 03/14/18at 02:48; Start 03/09/18 at 10:15; Stop 03/14/18 at 10:32; Status DC Sodium Chloride 1,000 ml @ 1,000 mls/hr 1X ONCE IV Last administered on at 10:15; Start 03/09/18 at 10:15; Stop 03/09/18 at 11:14; Status DC Norepinephrine Bitartrate 250 ml @ As Directed STK-MED ONCE IV ; Start 03/09/18 at 10:37; Stop 03/09/18 at 10:38; Status DC Phenylephrine HCl 20 mg/Sodium Chloride 252 ml @ 22.68 mls/ hr 1X ONCE IV ; Start 03/09/18 at 10:45; Stop 03/09/18 at 21:51; Status DC Iohexol (Omnipaque 300 Mg/ml) 75 ml 1X ONCE IV ; Start 03/09/18 at 11:30; Stop 03/09/18 at 11:35; Status DC Micafungin Sodium 100 mg/Dextrose 100 ml @ 100 mls/hr Q24H IV Last administered on 03/17/18at 15:51; Start 03/09/18 at 16:00 Linezolid/Dextrose 300 ml @ 300 mls/hr Q12H IV Last administered on 03/14/18at 04:58; Start 03/09/18 at 17:00; Stop 03/14/18 at 09:14; Status DC Norepinephrine Bitartrate 250 ml @ 1.875 mls/ hr CONT PRN IV SEE I/O RECORD Last administered on 03/09/18at 16:18; Start 03/09/18 at 16:00; Stop 03/15/18 at 12 :46; Status DC Furosemide (Lasix) 40 mg 1X ONCE IVP Last administered on 03/10/18at 08:49; Start 03/10/18 at 09:00; Stop 03/10/18 at 09:01; Status DC Perflutren Protein Type A Microsphe (Optison) 0.66 mg STK-MED ONCE IV ; Start at 10:23; Stop 03/10/18 at 10:25; Status DC Enoxaparin Sodium (Lovenox Per Pharmacy Treatment Dosing) 1 each PRN DAILY PRN MC SEE COMMENTS; Start 03/10/18 at 12:00; Stop 03/11/18 at 12:50; Status DC Enoxaparin Sodium (Lovenox 150mg Syringe) 130 mg Q12H SQ Last administered on at 07:48; Start 03/10/18 at 21:00; Stop 03/11/18 at 12:51; Status DC Enoxaparin Sodium (Lovenox 100mg Syringe) 90 mg 1X ONCE SQ Last administered on 03/10/18at 13:53; Start 03/10/18 at 12:30; Stop 03/10/18 at 12:31; Status DC Perflutren Protein Type A Microsphe (Optison) 0.66 mg 1X ONCE IV Last administered on 03/10/18at 12:55; Start 03/10/18 at 13:00; Stop 03/10/18 at 13:01; Status DC Iohexol (Omnipaque 300 Mg/ml) 75 ml 1X ONCE IV Last administered on 03/11/18at 10:00; Start 03/11/18 at 09:00; Stop 03/11/18 at 09:01; Status DC Info (CONTRAST GIVEN -- Rx MONITORING) 1 each PRN DAILY PRN MC SEE COMMENTS; Start 03/11/18 at 09:00; Stop 03/13/18 at 08:59; Status DC Norepinephrine Bitartrate (Levophed 8mg/ 250ml Premix Drip) 8 mg STK-MED ONCE IV ; Start 03/09/18 at 07:00; Stop 03/11/18 at 08:58; Status DC Insulin Human Lispro (HumaLOG) 0-5 UNITS TIDWMEALS SQ Last administered on 03/16at 09:13; Start 03/11/18 at 12:00 Dextrose (Dextrose 50%-Water Syringe) 12.5 gm PRN Q15MIN PRN IV SEE COMMENTS; Start 03/11/18 at 09:15 Potassium Chloride/Water 50 ml @ 50 mls/hr 1X ONCE IV Last administered on 03/11at 09:43; Start 03/11/18 at 10:00; Stop 03/11/18 at 10:59; Status DC Info (Anti-Coagulation Monitoring By Pharmacy) 1 each PRN DAILY PRN MC SEE COMMENTS; Start 03/11/18 at 09:30; Stop 03/11/18 at 12:51; Status DC Info (Tpn Per Pharmacy) 1 each PRN DAILY PRN MC SEE COMMENTS Last administered on 03/17/18at 14:38; Start 03/11/18 at 11:15 Magnesium Sulfate 50 ml @ 25 mls/hr 1X ONCE IV Last administered on 03/11/18at 15:09; Start 03/11/18 at 16:00; Stop 03/11/18 at 17:59; Status DC Potassium Phosphate 13.6 mmol/Dextrose 104.5333 ml @ 52.267 m... ONCE ONCE IV Last administered on 03/11/18at 17:11; Start 03/11/18 at 18:00; Stop 03/11/18 at 19:59; Status DC Norepinephrine Bitartrate (Levophed 8mg/ 250ml Premix Drip) 8 mg STK-MED ONCE IV ; Start 03/09/18 at 11:00; Stop 03/11/18 at 12:37; Status DC Enoxaparin Sodium (Lovenox 40mg Syringe) 40 mg Q12HR SQ Last administered on at 08:51; Start 03/11/18 at 21:00 Sodium Chloride 90 meq/Potassium Chloride 50 meq/ Potassium Phosphate 13.6 mmol/ Magnesium Sulfate 10 meq/ Multivitamins 10 ml/Chromium/ Copper/Manganese/ Seleni /Zn 1 ml/ Total Parenteral Nutrition/Amino Acids/Dextrose/ Fat Emulsion Intravenous 1,800 ml @ 75 mls/hr TPN CONT IV Last administered on 03/11/18at 21 :44; Start 03/11/18 at 22:00; Stop 03/12/18 at 21:59; Status DC Potassium Chloride/Water 50 ml @ 50 mls/hr 1X ONCE IV Last administered on 03/12at 10:40; Start 03/12/18 at 09:30; Stop 03/12/18 at 10:29; Status DC Sodium Chloride 90 meq/Potassium Acetate 70 meq/ Potassium Phosphate 10 mmol/ Magnesium Sulfate 10 meq/ Multivitamins 10 ml/Chromium/ Copper/Manganese/ Seleni /Zn 1 ml/ Total Parenteral Nutrition/Amino Acids/Dextrose/ Fat Emulsion Intravenous 1,800 ml @ 75 mls/hr TPN CONT IV ; Start 03/12/18 at 22:00; Stop at 22:00; Status DC Sodium Chloride 90 meq/Potassium Chloride 70 meq/ Potassium Phosphate 10 mmol/ Magnesium Sulfate 10 meq/ Multivitamins 10 ml/Chromium/ Copper/Manganese/ Seleni /Zn 1 ml/ Total Parenteral Nutrition/Amino Acids/Dextrose/ Fat Emulsion Intravenous 1,800 ml @ 75 mls/hr TPN CONT IV Last administered on 03/12/18at 21 :41; Start 03/12/18 at 22:00; Stop 03/13/18 at 21:59; Status DC Benzocaine (Hurricaine One) 1 spray 1X ONCE MM ; Start 03/13/18 at 12:45; Stop 03/13/18 at 12:45; Status DC Promethazine HCl/ Codeine (Phenergan With Codeine) 5 ml PRN Q6HRS PRN PO COUGH Last administered on 03/14/18at 08:10; Start 03/13/18 at 12:45 Benzocaine (Hurricaine One) 1 spray 1X ONCE MM ; Start 03/13/18 at 12:45; Stop 03/13/18 at 12:45; Status DC Benzocaine (Hurricaine One) 1 spray 1X ONCE MM Last administered on 03/13/18at 16:11; Start 03/13/18 at 12:45; Stop 03/13/18 at 12:46; Status DC Sodium Chloride 90 meq/Potassium Chloride 70 meq/ Potassium Phosphate 13.6 mmol/ Magnesium Sulfate 10 meq/ Multivitamins 10 ml/Chromium/ Copper/Manganese/ Seleni /Zn 1 ml/ Total Parenteral Nutrition/Amino Acids/Dextrose/ Fat Emulsion Intravenous 1,800 ml @ 75 mls/hr TPN CONT IV Last administered on 03/13/18at 21 :53; Start 03/13/18 at 22:00; Stop 03/14/18 at 21:59; Status DC Propofol 100 ml @ As Directed STK-MED ONCE IV ; Start 03/13/18 at 15:47; Stop at 15:48; Status DC Propofol 100 ml @ 0 mls/hr CONT PRN IV PER PROTOCOL Last administered on at 05:04; Start 03/13/18 at 16:45; Stop 03/14/18 at 17:45; Status DC Hydralazine HCl (Apresoline Inj) 10 mg PRN Q4HRS PRN IVP ELEVATED BP, SEE COMMENTS Last administered on 03/15/18at 11:37; Start 03/14/18 at 09:00 Albuterol/ Ipratropium (Duoneb) 3 ml RTQID NEB Last administered on 03/15/18at 08:27; Start 03/14/18 at 12:00; Stop 03/15/18 at 11:01; Status DC Albuterol/ Ipratropium (Duoneb) 3 ml 1X ONCE NEB Last administered on at 09:36; Start 03/14/18 at 09:30; Stop 03/14/18 at 09:31; Status DC Dexmedetomidine HCl 200 mcg/ Sodium Chloride 50 ml @ 0 mls/hr CONT PRN IV PER PROTOCOL Last administered on 03/14/18at 14:17; Start 03/14/18 at 10:30; Stop 03/15 at 07:33; Status DC Sodium Chloride 500 ml @ 500 mls/hr 1X PRN PRN IV SEE COMMENTS; Start 03/14/18 at 10:30 Atropine Sulfate (ATROPINE 0.5mg SYRINGE) 0.5 mg PRN Q5MIN PRN IV SEE COMMENTS ; Start 03/14/18 at 10:30 Furosemide (Lasix) 40 mg 1X ONCE IVP Last administered on 03/14/18at 10:45; Start 03/14/18 at 10:30; Stop 03/14/18 at 10:31; Status DC Sodium Chloride 90 meq/Potassium Chloride 70 meq/ Potassium Phosphate 13.6 mmol/ Magnesium Sulfate 10 meq/ Multivitamins 10 ml/Chromium/ Copper/Manganese/ Seleni /Zn 1 ml/ Total Parenteral Nutrition/Amino Acids/Dextrose/ Fat Emulsion Intravenous 1,800 ml @ 75 mls/hr TPN CONT IV Last administered on 03/14/18at 22 :33; Start 03/14/18 at 22:00; Stop 03/15/18 at 21:59; Status DC Pantoprazole Sodium (PROTONIX VIAL for IV PUSH) 40 mg BID IVP Last administered on 03/17/18at 09:09; Start 03/15/18 at 09:00; Stop 03/17/18 at 14:19 ; Status DC Iohexol (Omnipaque 300 Mg/ml) 75 ml 1X ONCE IV Last administered on 03/15/18at 06:15; Start 03/15/18 at 06:15; Stop 03/15/18 at 06:16; Status DC Iohexol (Omnipaque 240 Mg/ml) 50 ml 1X ONCE PO Last administered on 03/15/18at 06:15; Start 03/15/18 at 06:15; Stop 03/15/18 at 06:16; Status DC Info (CONTRAST GIVEN -- Rx MONITORING) 1 each PRN DAILY PRN MC SEE COMMENTS; Start 03/15/18 at 06:15; Stop 03/17/18 at 06:14; Status DC Labetalol HCl (Normodyne) 20 mg PRN Q2HR PRN IVP HYPERTENSION, SEE COMMENTS Last administered on 03/15/18at 09:46; Start 03/15/18 at 09:30 Ipratropium Star (Atrovent) 0.5 mg 1X ONCE NEB ; Start 03/15/18 at 12:00; Stop 03/15/18 at 12:00; Status DC Ipratropium Star (Atrovent) 0.5 mg RTQID NEB Last administered on 03/18/18at 08:05; Start 03/15/18 at 12:00 Metoprolol Tartrate (Lopressor Vial) 5 mg Q6HRS IVP Last administered on at 12:56; Start 03/15/18 at 12:00; Stop 03/15/18 at 18:14; Status DC Carvedilol (Coreg) 12.5 mg BIDWMEALS PO Last administered on 03/18/18at 08:43; Start 03/15/18 at 17:00 Sodium Chloride 90 meq/Potassium Chloride 70 meq/ Potassium Phosphate 5 mmol/ Magnesium Sulfate 10 meq/ Multivitamins 10 ml/Chromium/ Copper/Manganese/ Seleni /Zn 1 ml/ Total Parenteral Nutrition/Amino Acids/Dextrose/ Fat Emulsion Intravenous 1,800 ml @ 75 mls/hr TPN CONT IV Last administered on 03/15/18at 21:17; Start 03/15/18 at 22:00; Stop 03/16/18 at 21:59; Status DC Phenazopyridine HCl (Pyridium) 200 mg PRN TID PRN PO URINARY PAIN; Start at 11:15 Sodium Chloride 90 meq/Potassium Chloride 70 meq/ Potassium Phosphate 5 mmol/ Magnesium Sulfate 10 meq/ Multivitamins 10 ml/Chromium/ Copper/Manganese/ Seleni /Zn 1 ml/ Total Parenteral Nutrition/Amino Acids/Dextrose/ Fat Emulsion Intravenous 1,800 ml @ 75 mls/hr TPN CONT IV Last administered on 03/16/18at 20:27; Start 03/16/18 at 22:00; Stop 03/17/18 at 21:59; Status DC Pantoprazole Sodium (PROTONIX VIAL for IV PUSH) 40 mg DAILY IVP Last administered on 03/18/18at 08:51; Start 03/18/18 at 09:00 Sodium Chloride 1,000 ml @ 60 mls/hr [id number] IV ; Start 03/18/18 at 07:30 Sodium Chloride 90 meq/Potassium Chloride 70 meq/ Potassium Phosphate 5 mmol/ Magnesium Sulfate 10 meq/ Multivitamins 10 ml/Chromium/ Copper/Manganese/ Seleni /Zn 1 ml/ Total Parenteral Nutrition/Amino Acids/Dextrose/ Fat Emulsion Intravenous 1,800 ml @ 75 mls/hr TPN CONT IV Last administered on 03/17/18at 21:10; Start 03/17/18 at 22:00; Stop 03/18/18 at 21:59 Iohexol (Omnipaque 300 Mg/ml) 100 ml STK-MED ONCE .ROUTE ; Start 03/18/18 at 07: 21; Stop 03/18/18 at 07:22; Status DC Lidocaine HCl (Lidocaine 1% Pf) 30 ml STK-MED ONCE .ROUTE ; Start 03/18/18 at 07 :21; Stop 03/18/18 at 07:22; Status DC Heparin Sodium/ Sodium Chloride 1,000 ml @ As Directed STK-MED ONCE .ROUTE ; Start 03/18/18 at 07:22; Stop 03/18/18 at 07:23; Status DC Fentanyl Citrate (Fentanyl 2ml Vial) 100 mcg STK-MED ONCE .ROUTE ; Start at 10:12; Stop 03/18/18 at 10:13; Status DC Midazolam HCl (Versed) 2 mg STK-MED ONCE .ROUTE ; Start 03/18/18 at 10:12; Stop 03/18/18 at 10:13; Status DC Heparin Sodium (Porcine) (Heparin Sodium) 10,000 unit STK-MED ONCE .ROUTE ; Start 03/18/18 at 10:13; Stop 03/18/18 at 10:14; Status DC Verapamil HCl (Verapamil) 5 mg STK-MED ONCE .ROUTE ; Start 03/18/18 at 10:13; Stop 03/18/18 at 10:14; Status DC Nitroglycerin (Nitroglycerin) 200 mcg STK-MED ONCE .ROUTE ; Start 03/18/18 at 10 :13; Stop 03/18/18 at 10:14; Status DC Nitroglycerin (Nitroglycerin) 200 mcg 1X ONCE IART Last administered on at 10:43; Start 03/18/18 at 10:45; Stop 03/18/18 at 10:46; Status DC Verapamil HCl (Verapamil) 2.5 mg 1X ONCE IART Last administered on 03/18/18at 10:44; Start 03/18/18 at 10:45; Stop 03/18/18 at 10:46; Status DC Heparin Sodium (Porcine) (Heparin Sodium) 2,500 unit 1X ONCE IART Last administered on 03/18/18at 10:45; Start 03/18/18 at 10:45; Stop 03/18/18 at 10:46 ; Status DC Heparin Sodium/ Sodium Chloride (HEPARIN for ARTERIAL LINE FLUSH) 1,000 unit 1X ONCE IART Last administered on 03/18/18at 10:43; Start 03/18/18 at 10:45; Stop 03/18/18 at 10:46; Status DC Heparin Sodium/ Sodium Chloride (HEPARIN for ARTERIAL LINE FLUSH) 1,000 unit 1X ONCE IART Last administered on 03/18/18at 10:43; Start 03/18/18 at 10:45; Stop 03/18/18 at 10:46; Status DC Midazolam HCl (Versed) 2 mg 1X ONCE IV Last administered on 03/18/18at 10:44; Start 03/18/18 at 10:45; Stop 03/18/18 at 10:46; Status DC Fentanyl Citrate (Fentanyl 2ml Vial) 50 mcg 1X ONCE IV Last administered on at 10:45; Start 03/18/18 at 10:45; Stop 03/18/18 at 10:46; Status DC Iohexol (Omnipaque 300 Mg/ml) 112 ml 1X ONCE IART Last administered on at 10:46; Start 03/18/18 at 10:45; Stop 03/18/18 at 10:46; Status DC Lidocaine HCl 1 ml 1X ONCE IJ Last administered on 03/18/18at 10:46; Start at 10:45; Stop 03/18/18 at 10:46; Status DC Info (CONTRAST GIVEN -- Rx MONITORING) 1 each PRN DAILY PRN MC SEE COMMENTS; Start 03/18/18 at 10:45; Stop 03/20/18 at 10:44 Sodium Chloride 1,000 ml @ 60 mls/hr [id number] IV ; Start 03/18/18 at 10:42 Nitroglycerin (Nitrostat) 0.4 mg PRN Q5MIN PRN SL CHEST PAIN; Start 03/18/18 at 10:45 Active Scripts Active Reported Amlodipine Besylate 5 Mg Tablet 5 Mg PO DAILY Omeprazole 40 Mg Capsule. 1 Cap PO BID Vitals/I & O Vital Sign - Last 24 Hours 03/17/18 03/17/18 03/17/18 03/17/18 12:11 15:00 15:48 16:56 Temp 97.6 97.6 Pulse 82 Resp 24 B/P (MAP) 126/96 (106) Pulse Ox 91 O2 Delivery Room Air Nasal Cannula Room Air Room Air O2 Flow Rate 2.0 03/17/18 03/17/18 03/17/18 03/17/18 17:53 18:39 19:00 19:45 Temp 98.2 98.2 Pulse 87 83 Resp 20 B/P (MAP) 126/96 144/92 (109) Pulse Ox 94 O2 Delivery Room Air Room Air Room Air 03/17/18 03/18/18 03/18/18 03/18/18 23:20 03:00 07:00 08:07 Temp 97.7 97.8 97.7 97.7 97.8 97.7 Pulse 74 87 89 Resp 22 20 22 B/P (MAP) 103/54 (70) 136/86 (103) 156/90 (112) Pulse Ox 96 96 92 96 O2 Delivery Nasal Cannula Nasal Cannula Room Air Room Air O2 Flow Rate 2.5 2.5 03/18/18 03/18/18 03/18/18 03/18/18 08:43 10:44 10:45 10:48 Pulse 89 85 82 Resp 18 20 B/P (MAP) 156/90 Pulse Ox 94 93 O2 Delivery Nasal Cannula Nasal Cannula O2 Flow Rate 2.0 2.0 Intake and Output 03/17/18 03/17/18 03/18/18 15:00 23:00 07:00 Intake Total 1000 ml 0 ml Output Total 1500 ml 450 ml Balance -500 ml -450 ml KEO AYALA III DO Mar 18, 2018 11:44
[2018-03-18] MEDS: ACETAMINOPHEN 325 MG TABLET. PO PRN (13:38)
[2018-03-18] MEDS: TPN PER PHARMACY MC PRN (13:50)
--- NOTE | 2018-03-18 14:45 | PDOC ---
PULMONARY PROGRESS NOTES Subjective Patient with no shortness of air Vitals Vital Signs Date Time Temp Pulse Resp B/P (MAP) Pulse Ox O2 Delivery O2 Flow Rate FiO2 03/18/18 13:38 Room Air 03/18/18 11:00 97.6 83 20 140/86 (104) 92 97.6 03/18/18 10:48 2.0 General: Alert, No acute distress Lungs: Clear, Other Cardiovascular: S1, S2 Abdomen: Soft Neuro Exam: Alert Extremities: Other (EDEMA) Skin: Warm Labs Laboratory Tests Test 03/16/18 17:28 03/16/18 21:05 03/17/18 06:30 03/17/18 07:47 Glucose (Fingerstick) 136 mg/dL (70-99) 145 mg/dL (70-99) 121 mg/dL (70-99) White Blood Count 10.6 x10^3/uL (4.0-11.0) Red Blood Count 3.87 x10^6/uL (4.30-5.70) Hemoglobin 11.9 g/dL (13.0-17.5) Hematocrit 36.3 % (39.0-53.0) Mean Corpuscular Volume 94 fL (79-100) Mean Corpuscular Hemoglobin 31 pg (25-35) Mean Corpuscular Hemoglobin Concent 33 g/dL (31-37) Red Cell Distribution Width 14.2 % (11.5-14.5) Platelet Count 566 x10^3/uL (140-400) Neutrophils (%) (Auto) 72 % (31-73) Lymphocytes (%) (Auto) 16 % (24-48) Monocytes (%) (Auto) 7 % (0-9) Eosinophils (%) (Auto) 5 % (0-3) Basophils (%) (Auto) 1 % (0-3) Neutrophils # (Auto) 7.6 x10^3uL (1.8-7.7) Lymphocytes # (Auto) 1.7 x10^3/uL (1.0-4.8) Monocytes # (Auto) 0.7 x10^3/uL (0.0-1.1) Eosinophils # (Auto) 0.5 x10^3/uL (0.0-0.7) Basophils # (Auto) 0.1 x10^3/uL (0.0-0.2) Test 03/17/18 08:11 03/17/18 11:15 03/17/18 17:17 03/17/18 20:59 Sodium Level 138 mmol/L (136-145) Potassium Level 4.2 mmol/L (3.5-5.1) Chloride Level 103 mmol/L (98-107) Carbon Dioxide Level 26 mmol/L (21-32) Anion Gap 9 (6-14) Blood Urea Nitrogen 18 mg/dL (8-26) Creatinine 0.8 mg/dL (0.7-1.3) Estimated GFR (Cockcroft-Gault) 109.4 Glucose Level 124 mg/dL (70-99) Calcium Level 9.1 mg/dL (8.5-10.1) Glucose (Fingerstick) 126 mg/dL (70-99) 117 mg/dL (70-99) 100 mg/dL (70-99) Test 03/18/18 05:45 03/18/18 07:35 03/18/18 11:35 Sodium Level 136 mmol/L (136-145) Potassium Level 4.0 mmol/L (3.5-5.1) Chloride Level 102 mmol/L (98-107) Carbon Dioxide Level 26 mmol/L (21-32) Anion Gap 8 (6-14) Blood Urea Nitrogen 20 mg/dL (8-26) Creatinine 0.9 mg/dL (0.7-1.3) Estimated GFR (Cockcroft-Gault) 95.5 Glucose Level 114 mg/dL (70-99) Calcium Level 9.0 mg/dL (8.5-10.1) Phosphorus Level 5.0 mg/dL (2.6-4.7) Magnesium Level 2.0 mg/dL (1.8-2.4) Glucose (Fingerstick) 148 mg/dL (70-99) 111 mg/dL (70-99) Laboratory Tests Test 03/17/18 17:17 03/17/18 20:59 03/18/18 05:45 03/18/18 07:35 Glucose (Fingerstick) 117 mg/dL (70-99) 100 mg/dL (70-99) 148 mg/dL (70-99) Sodium Level 136 mmol/L (136-145) Potassium Level 4.0 mmol/L (3.5-5.1) Chloride Level 102 mmol/L (98-107) Carbon Dioxide Level 26 mmol/L (21-32) Anion Gap 8 (6-14) Blood Urea Nitrogen 20 mg/dL (8-26) Creatinine 0.9 mg/dL (0.7-1.3) Estimated GFR (Cockcroft-Gault) 95.5 Glucose Level 114 mg/dL (70-99) Calcium Level 9.0 mg/dL (8.5-10.1) Phosphorus Level 5.0 mg/dL (2.6-4.7) Magnesium Level 2.0 mg/dL (1.8-2.4) Test 03/18/18 11:35 Glucose (Fingerstick) 111 mg/dL (70-99) Medications Active Scripts Medications Dose Route/Sig Max Daily Dose Days Date Category Amlodipine Besylate 5 Mg Tablet 5 Mg PO DAILY 03/14/18 Reported Omeprazole 40 Mg Capsule. 1 Cap PO BID 03/14/18 Reported Comments CTA CHEST REVIEWED 1. Life support devices in appropriate position. 2. No large central pulmonary embolus. Lobar, segmental, subsegmental pulmonary arteries cannot be evaluated due to limited contrast opacification. 3. Moderate consolidations with air bronchograms in the bilateral lower lobes. Considerations include aspiration, pneumonia, or atelectasis. 4. Persistent diverticulitis of the sigmoid colon. There is a small incompletely formed probable peridiverticular abscess. 5. Fatty infiltration of the liver. Electronically signed by: Akbar Naqvi MD (03/11/2018 11:21 AM) [id number] CXR 03/15 reviewed MILD BILATERAL INFIL Impression . IMPRESSION: 1. Acute respiratory failure, status post code blue. Etiology likely ALI/EARLY ARDS due to diverticulitis . Extubated 03/14 2. Status post code blue patient with spontaneous return of circulation after one defibrillation and 2 minutes of chest compressions. 3. Septic shock.resolved 4. Diverticulitis leading to septic shock. ? abscess/ suspected perf. diverticulitis, clinically improving. Repeat ct abdomen per surgery 5. Metabolic acidosis secondary to code blue, increased work of breathing and renal insufficiency. resolved 6. Morbid obesity./suspected ARNIE 7. Leukocytosis. 8. Obstructive sleep apnea. 9. Possible aspiration pneumonia. 10. No central PE by CTA, Plan . psg out pt, arnie the importance of diagnosis and tx discussed, 02 titration increase activity cardiac cath 03/18, prelim no signif CAD LOVENOX FOR DVT PROPHYLAXIS NO SHUNT ON ECHO NEG VENOUS DOPPLER ANTIBX PER ID, FOLLOW SURGERY REC TPN GI PROPH NEBS ATROVENT ONLY, avoid alb, tachycardia D/W RN/ LOY TIJERINA MD Mar 18, 2018 14:45
[2018-03-18] MEDS: MICAFUNGIN 100 MG in IV DEXTROSE 5% 100ML 100 ML IV SCH (16:19)
--- NOTE | 2018-03-18 17:29 | CARD ---
MR#: [id number] Date of Study: 03/18/2018 Ordering Physician: SARAH AVILA, Referring Physician: KEO AYALA Tech: RT Tesfaye (R) APPROVED REPORT Technologist: Madison Abernathy RT (R) Nurse: Janel Terrell R.N. Procedure(s) performed: Left heart catheterization, selective coronary angiography and left ventricul ography via right transradial approach Moderate sedation: 23 min INDICATION The indication(s) include : Cardiopulmonary arrest, ventricular tachycardia and cardiomyopathy. PROCEDURE NARRATIVE After explaining the risks, benefits and alternative options, informed consent was obtained from becki ent. Patient was brought to the cardiac Running Instructor and right wrist was prepped and draped in the usual fashion after confirming a positive modified Tito's test. Arterial access was obtained in the righ t radial artery and a 6 [place] sheath was inserted. 6 [place] Pk catheter was used to perform eri ective angiography of the left and right coronary arteries. 6 [place] pigtail catheter was used to pe rform left ventriculography. Patient tolerated the procedure well. Hemostasis was achieved using TR band. There were no immediate complications. The following findings were noted. FINDINGS 1. Hemodynamics: Left ventricular end-diastolic pressure of 9 mmHg. No pullback gradient across the aortic valve. 2. Left ventriculography: Normal left ventricle systolic function with ejection fraction estimated at 55%. No significant mitral regurgitation seen. 3. Coronary angiography: a. The left main coronary artery arose from the left sinus of Valsalva, gave rise to the left anteri or descending and left circumflex arteries and did not show any significant stenosis. b. The left anterior descending artery did not show any significant stenosis. c. The left circumflex artery did not show any significant stenosis. d. The right coronary artery was a large and dominant vessel arising from the right sinus of Valsalv a that did not show any significant stenosis. Conclusion 1. No significant coronary artery disease 2. Normal left ventricle systolic function with ejection fraction estimated at 55% Recommendations Patient's diminished left ventricle systolic function on 2-D echocardiogram post cardiac arrest was p robably secondary to CPR/shock therapy. Continue medical management. Signed by : Sarah Avila, Electronically Approved : 03/18/2018 17:28:27
[2018-03-18] MEDS ORDERED: [UNRECOGNIZED DRUG - OTHER] IV SCH ×8 (22:00)
[2018-03-18] MEDS ORDERED: DEXTROSE 70% IV SCH ×8 (22:00)
[2018-03-18] MEDS ORDERED: AMINO ACIDS IV SCH ×8 (22:00)
[2018-03-18] MEDS ORDERED: TOTAL PARENTERAL NUTRITION IV SCH ×8 (22:00)
[2018-03-19 03:15] VITALS: BP 129/76
[2018-03-19] MEDS: PIPERACILLIN/TAZOBACTAM 3.375 GM in IV NORMAL SALINE 50ML 50 ML IV SCH ×4 (05:25→23:35)
[2018-03-19 06:41] LABS: BASO # 0.1 x10^3/uL (0.0-0.2); BASO % 1 % (0-3); EOS # 0.4 x10^3/uL (0.0-0.7); EOS % 4 % (0-3); HEMOGLOBIN 12.6 g/dL (13.0-17.5); LYMPH % 22 % (24-48); MEAN CORPUSCULAR HEMOGLOBIN 30 pg (25-35); MEAN CORPUSCULAR HGB CONC 34 g/dL (31-37); MEAN CORPUSCULAR VOLUME 89 fL (79-100); MONO # 0.8 x10^3/uL (0.0-1.1); MONO % 9 % (0-9); NEUT % 65 % (31-73); PLATELET COUNT 630 x10^3/uL (140-400); RED BLOOD COUNT 4.17 x10^6/uL (4.30-5.70); RED CELL DISTRIBUTION WIDTH 13.6 % (11.5-14.5); WHITE BLOOD COUNT 9.3 x10^3/uL (4.0-11.0)
[2018-03-19 06:57] LABS: CALCIUM 9.8 mg/dL (8.5-10.1); GFR 84.5; MAGNESIUM 1.9 mg/dL (1.8-2.4); PHOSPHORUS 5.4 mg/dL (2.6-4.7); POTASSIUM 4.2 mmol/L (3.5-5.1)
[2018-03-19 07:00] VITALS: BP 147/83
--- NOTE | 2018-03-19 07:44 | PDOC ---
Infectious Disease Note Subjective Subjective feeling really good, no abd pain ROS ROS no n/v/d/sob Vital Sign Vital Signs Vital Signs Date Time Temp Pulse Resp B/P (MAP) Pulse Ox O2 Delivery O2 Flow Rate FiO2 03/19/18 03:15 98.1 87 18 129/76 (93) 93 Room Air 98.1 03/18/18 23:05 2.0 Physical Exam PHYSICAL EXAM GENERAL: NAD, alert, looks really well, in bed HENT: PERRLA, Oc/Op -clear NECK: no JVD LUNGS: CTA CV: S1/S2 ABDOMEN: Obese, hypoactive but + bowel sounds, soft, no rebound/guard. less distension EXT: No gross edema or cyanosis. right groin dressing clean SKIN: warm without rash NEURO: - alert/appropriate/pleasant Right PICC line - clean Labs Lab Laboratory Tests Test 03/18/18 11:35 03/18/18 20:58 03/19/18 06:20 Glucose (Fingerstick) 111 mg/dL (70-99) 131 mg/dL (70-99) White Blood Count 9.3 x10^3/uL (4.0-11.0) Red Blood Count 4.17 x10^6/uL (4.30-5.70) Hemoglobin 12.6 g/dL (13.0-17.5) Hematocrit 37.0 % (39.0-53.0) Mean Corpuscular Volume 89 fL (79-100) Mean Corpuscular Hemoglobin 30 pg (25-35) Mean Corpuscular Hemoglobin Concent 34 g/dL (31-37) Red Cell Distribution Width 13.6 % (11.5-14.5) Platelet Count 630 x10^3/uL (140-400) Neutrophils (%) (Auto) 65 % (31-73) Lymphocytes (%) (Auto) 22 % (24-48) Monocytes (%) (Auto) 9 % (0-9) Eosinophils (%) (Auto) 4 % (0-3) Basophils (%) (Auto) 1 % (0-3) Neutrophils # (Auto) 6.0 x10^3uL (1.8-7.7) Lymphocytes # (Auto) 2.0 x10^3/uL (1.0-4.8) Monocytes # (Auto) 0.8 x10^3/uL (0.0-1.1) Eosinophils # (Auto) 0.4 x10^3/uL (0.0-0.7) Basophils # (Auto) 0.1 x10^3/uL (0.0-0.2) Sodium Level 136 mmol/L (136-145) Potassium Level 4.2 mmol/L (3.5-5.1) Chloride Level 102 mmol/L (98-107) Carbon Dioxide Level 27 mmol/L (21-32) Anion Gap 7 (6-14) Blood Urea Nitrogen 19 mg/dL (8-26) Creatinine 1.0 mg/dL (0.7-1.3) Estimated GFR (Cockcroft-Gault) 84.5 Glucose Level 103 mg/dL (70-99) Calcium Level 9.8 mg/dL (8.5-10.1) Phosphorus Level 5.4 mg/dL (2.6-4.7) Magnesium Level 1.9 mg/dL (1.8-2.4) Triglycerides Level 261 mg/dL (0-150) Micro Microbiology 03/09/18 Blood Culture - Final, Complete NO GROWTH AFTER 5 DAYS Objective Assessment Fever - better s/p code blue, 03/09 Sepsis w/ hypotension requiring vasopressor support previously but now off. - BC from 03/07 NGTD. Fever curve improving Leukocytosis - better Acute diverticulitis with microperforation -gen surgery following, on bowel rest - developing abscess on CT Allergy Cipro - rash RONNY Acute respiratory failure ? ARDS developing -improving per Dr. Galo Substance abuse. urine tox + cocaine and marijuana 03/07 & 03/09 PUD / GERD Etoh dependence Morbid obesity, BMI 41 Hypertension Recently hosp [facility] & EGD- ulcers Rx on omeprazole per Plan Plan of Care Clinically he is much improved Continue Zosyn for now tolerating regular food may change to po augmentin for d/c in a day or two Cardiac cath 03/18 neg Monitor labs/VSS D/w pt and in detail D/w RAFFI ALLEN MD Mar 19, 2018 07:44
[2018-03-19] MEDS: INSULIN LISPRO 300 UNITS/3 ML INSULN.PEN. SQ SCH (08:00)
[2018-03-19] MEDS: CARVEDILOL 12.5 MG TABLET. PO SCH ×2 (08:28→17:38)
[2018-03-19] MEDS: PANTOPRAZOLE IV PUSH 40 MG VIAL. IVP SCH (08:28)
[2018-03-19] MEDS: ENOXAPARIN 40 MG/0.4 ML SYRINGE. SQ SCH ×2 (08:28→20:26)
--- NOTE | 2018-03-19 08:59 | PDOC ---
JANUSZ SMITH [employer]BIT[employer]INNER 03/19/18 0859: SURGICAL PROGRESS NOTE Subjective tolerating diet bowels functioning no abd pain Vital Signs Vital Signs Date Time Temp Pulse Resp B/P (MAP) Pulse Ox O2 Delivery O2 Flow Rate FiO2 03/19/18 08:28 92 03/19/18 07:47 94 Room Air 03/19/18 07:00 97.6 20 147/83 (104) 97.6 03/18/18 23:05 2.0 I&O Intake and Output 03/19/18 07:00 Intake Total 1360 ml Output Total 600 ml Balance 760 ml Intake Oral 1310 ml IV Total 50 ml Output Urine Total 600 ml # Voids 2 General: Alert, Oriented X3, Cooperative, No acute distress Abdomen: Soft, No tenderness Labs Laboratory Tests Test 03/17/18 11:15 03/17/18 17:17 03/17/18 20:59 03/18/18 05:45 Glucose (Fingerstick) 126 mg/dL (70-99) 117 mg/dL (70-99) 100 mg/dL (70-99) Sodium Level 136 mmol/L (136-145) Potassium Level 4.0 mmol/L (3.5-5.1) Chloride Level 102 mmol/L (98-107) Carbon Dioxide Level 26 mmol/L (21-32) Anion Gap 8 (6-14) Blood Urea Nitrogen 20 mg/dL (8-26) Creatinine 0.9 mg/dL (0.7-1.3) Estimated GFR (Cockcroft-Gault) 95.5 Glucose Level 114 mg/dL (70-99) Calcium Level 9.0 mg/dL (8.5-10.1) Phosphorus Level 5.0 mg/dL (2.6-4.7) Magnesium Level 2.0 mg/dL (1.8-2.4) Test 03/18/18 07:35 03/18/18 11:35 03/18/18 20:58 03/19/18 06:20 Glucose (Fingerstick) 148 mg/dL (70-99) 111 mg/dL (70-99) 131 mg/dL (70-99) White Blood Count 9.3 x10^3/uL (4.0-11.0) Red Blood Count 4.17 x10^6/uL (4.30-5.70) Hemoglobin 12.6 g/dL (13.0-17.5) Hematocrit 37.0 % (39.0-53.0) Mean Corpuscular Volume 89 fL (79-100) Mean Corpuscular Hemoglobin 30 pg (25-35) Mean Corpuscular Hemoglobin Concent 34 g/dL (31-37) Red Cell Distribution Width 13.6 % (11.5-14.5) Platelet Count 630 x10^3/uL (140-400) Neutrophils (%) (Auto) 65 % (31-73) Lymphocytes (%) (Auto) 22 % (24-48) Monocytes (%) (Auto) 9 % (0-9) Eosinophils (%) (Auto) 4 % (0-3) Basophils (%) (Auto) 1 % (0-3) Neutrophils # (Auto) 6.0 x10^3uL (1.8-7.7) Lymphocytes # (Auto) 2.0 x10^3/uL (1.0-4.8) Monocytes # (Auto) 0.8 x10^3/uL (0.0-1.1) Eosinophils # (Auto) 0.4 x10^3/uL (0.0-0.7) Basophils # (Auto) 0.1 x10^3/uL (0.0-0.2) Sodium Level 136 mmol/L (136-145) Potassium Level 4.2 mmol/L (3.5-5.1) Chloride Level 102 mmol/L (98-107) Carbon Dioxide Level 27 mmol/L (21-32) Anion Gap 7 (6-14) Blood Urea Nitrogen 19 mg/dL (8-26) Creatinine 1.0 mg/dL (0.7-1.3) Estimated GFR (Cockcroft-Gault) 84.5 Glucose Level 103 mg/dL (70-99) Calcium Level 9.8 mg/dL (8.5-10.1) Phosphorus Level 5.4 mg/dL (2.6-4.7) Magnesium Level 1.9 mg/dL (1.8-2.4) Triglycerides Level 261 mg/dL (0-150) Laboratory Tests Test 03/18/18 11:35 03/18/18 20:58 03/19/18 06:20 Glucose (Fingerstick) 111 mg/dL (70-99) 131 mg/dL (70-99) White Blood Count 9.3 x10^3/uL (4.0-11.0) Red Blood Count 4.17 x10^6/uL (4.30-5.70) Hemoglobin 12.6 g/dL (13.0-17.5) Hematocrit 37.0 % (39.0-53.0) Mean Corpuscular Volume 89 fL (79-100) Mean Corpuscular Hemoglobin 30 pg (25-35) Mean Corpuscular Hemoglobin Concent 34 g/dL (31-37) Red Cell Distribution Width 13.6 % (11.5-14.5) Platelet Count 630 x10^3/uL (140-400) Neutrophils (%) (Auto) 65 % (31-73) Lymphocytes (%) (Auto) 22 % (24-48) Monocytes (%) (Auto) 9 % (0-9) Eosinophils (%) (Auto) 4 % (0-3) Basophils (%) (Auto) 1 % (0-3) Neutrophils # (Auto) 6.0 x10^3uL (1.8-7.7) Lymphocytes # (Auto) 2.0 x10^3/uL (1.0-4.8) Monocytes # (Auto) 0.8 x10^3/uL (0.0-1.1) Eosinophils # (Auto) 0.4 x10^3/uL (0.0-0.7) Basophils # (Auto) 0.1 x10^3/uL (0.0-0.2) Sodium Level 136 mmol/L (136-145) Potassium Level 4.2 mmol/L (3.5-5.1) Chloride Level 102 mmol/L (98-107) Carbon Dioxide Level 27 mmol/L (21-32) Anion Gap 7 (6-14) Blood Urea Nitrogen 19 mg/dL (8-26) Creatinine 1.0 mg/dL (0.7-1.3) Estimated GFR (Cockcroft-Gault) 84.5 Glucose Level 103 mg/dL (70-99) Calcium Level 9.8 mg/dL (8.5-10.1) Phosphorus Level 5.4 mg/dL (2.6-4.7) Magnesium Level 1.9 mg/dL (1.8-2.4) Triglycerides Level 261 mg/dL (0-150) Problem List Problems Medical Problems: (1) Diverticulitis of colon with perforation Status: Acute Assessment/Plan continue abx, d/w ID--plans for DC tomorrow on oral abx--will repeat ct as outpt in 1 week will need FU with GI 4-6 wks for colonoscopy EVAN MCGHEE MD 03/19/18 0931: SURGICAL PROGRESS NOTE Assessment/Plan Agree with above, does not need general surgery follow up JANUSZ SMITH APRN Mar 19, 2018 08:59 EVAN MCGHEE MD Mar 19, 2018 09:31
--- NOTE | 2018-03-19 09:39 | PDOC ---
PROGRESS NOTES Chief Complaint Chief Complaint status post cardiac arrest, nonsustained V. 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% hypokalemia History of Present Illness History of Present Illness pt seen and examined is with pt in room Heart cath results reviewed and DW pt and pt's (Alice) VSS DW RN Vitals Vitals Vital Signs Date Time Temp Pulse Resp B/P (MAP) Pulse Ox O2 Delivery O2 Flow Rate FiO2 03/19/18 08:28 92 03/19/18 07:47 94 Room Air 03/19/18 07:00 97.6 20 147/83 (104) 97.6 03/18/18 23:05 2.0 Physical Exam General: Alert, Oriented X3, Cooperative, No acute distress Heart: Regular rate, Normal S1, Normal S2 Lungs: Clear, Other Abdomen: Soft, No tenderness Extremities: No clubbing, No cyanosis, No edema Skin: No rashes, No breakdown Labs LABS Laboratory Tests Test 03/18/18 11:35 03/18/18 20:58 03/19/18 06:20 Glucose (Fingerstick) 111 mg/dL (70-99) 131 mg/dL (70-99) White Blood Count 9.3 x10^3/uL (4.0-11.0) Red Blood Count 4.17 x10^6/uL (4.30-5.70) Hemoglobin 12.6 g/dL (13.0-17.5) Hematocrit 37.0 % (39.0-53.0) Mean Corpuscular Volume 89 fL (79-100) Mean Corpuscular Hemoglobin 30 pg (25-35) Mean Corpuscular Hemoglobin Concent 34 g/dL (31-37) Red Cell Distribution Width 13.6 % (11.5-14.5) Platelet Count 630 x10^3/uL (140-400) Neutrophils (%) (Auto) 65 % (31-73) Lymphocytes (%) (Auto) 22 % (24-48) Monocytes (%) (Auto) 9 % (0-9) Eosinophils (%) (Auto) 4 % (0-3) Basophils (%) (Auto) 1 % (0-3) Neutrophils # (Auto) 6.0 x10^3uL (1.8-7.7) Lymphocytes # (Auto) 2.0 x10^3/uL (1.0-4.8) Monocytes # (Auto) 0.8 x10^3/uL (0.0-1.1) Eosinophils # (Auto) 0.4 x10^3/uL (0.0-0.7) Basophils # (Auto) 0.1 x10^3/uL (0.0-0.2) Sodium Level 136 mmol/L (136-145) Potassium Level 4.2 mmol/L (3.5-5.1) Chloride Level 102 mmol/L (98-107) Carbon Dioxide Level 27 mmol/L (21-32) Anion Gap 7 (6-14) Blood Urea Nitrogen 19 mg/dL (8-26) Creatinine 1.0 mg/dL (0.7-1.3) Estimated GFR (Cockcroft-Gault) 84.5 Glucose Level 103 mg/dL (70-99) Calcium Level 9.8 mg/dL (8.5-10.1) Phosphorus Level 5.4 mg/dL (2.6-4.7) Magnesium Level 1.9 mg/dL (1.8-2.4) Triglycerides Level 261 mg/dL (0-150) Review of Systems Review of Systems no co pain no co sob Assessment and Plan Assessmemt and Plan Assessment: status post cardiac arrest, nonsustained V. 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% hypokalemia Plan: Apprecaite ID and Cardiology input cardiac monitoring Abx labs home meds PTOT counseled on lifestyle modifications (alcohol and smoking cessation and beginning and exercise regiment) Comment Review of Relevant I have reviewed the following items kalin (where applicable) has been applied. Labs Laboratory Tests Test 03/17/18 11:15 03/17/18 17:17 03/17/18 20:59 03/18/18 05:45 Glucose (Fingerstick) 126 mg/dL (70-99) 117 mg/dL (70-99) 100 mg/dL (70-99) Sodium Level 136 mmol/L (136-145) Potassium Level 4.0 mmol/L (3.5-5.1) Chloride Level 102 mmol/L (98-107) Carbon Dioxide Level 26 mmol/L (21-32) Anion Gap 8 (6-14) Blood Urea Nitrogen 20 mg/dL (8-26) Creatinine 0.9 mg/dL (0.7-1.3) Estimated GFR (Cockcroft-Gault) 95.5 Glucose Level 114 mg/dL (70-99) Calcium Level 9.0 mg/dL (8.5-10.1) Phosphorus Level 5.0 mg/dL (2.6-4.7) Magnesium Level 2.0 mg/dL (1.8-2.4) Test 03/18/18 07:35 03/18/18 11:35 03/18/18 20:58 03/19/18 06:20 Glucose (Fingerstick) 148 mg/dL (70-99) 111 mg/dL (70-99) 131 mg/dL (70-99) White Blood Count 9.3 x10^3/uL (4.0-11.0) Red Blood Count 4.17 x10^6/uL (4.30-5.70) Hemoglobin 12.6 g/dL (13.0-17.5) Hematocrit 37.0 % (39.0-53.0) Mean Corpuscular Volume 89 fL (79-100) Mean Corpuscular Hemoglobin 30 pg (25-35) Mean Corpuscular Hemoglobin Concent 34 g/dL (31-37) Red Cell Distribution Width 13.6 % (11.5-14.5) Platelet Count 630 x10^3/uL (140-400) Neutrophils (%) (Auto) 65 % (31-73) Lymphocytes (%) (Auto) 22 % (24-48) Monocytes (%) (Auto) 9 % (0-9) Eosinophils (%) (Auto) 4 % (0-3) Basophils (%) (Auto) 1 % (0-3) Neutrophils # (Auto) 6.0 x10^3uL (1.8-7.7) Lymphocytes # (Auto) 2.0 x10^3/uL (1.0-4.8) Monocytes # (Auto) 0.8 x10^3/uL (0.0-1.1) Eosinophils # (Auto) 0.4 x10^3/uL (0.0-0.7) Basophils # (Auto) 0.1 x10^3/uL (0.0-0.2) Sodium Level 136 mmol/L (136-145) Potassium Level 4.2 mmol/L (3.5-5.1) Chloride Level 102 mmol/L (98-107) Carbon Dioxide Level 27 mmol/L (21-32) Anion Gap 7 (6-14) Blood Urea Nitrogen 19 mg/dL (8-26) Creatinine 1.0 mg/dL (0.7-1.3) Estimated GFR (Cockcroft-Gault) 84.5 Glucose Level 103 mg/dL (70-99) Calcium Level 9.8 mg/dL (8.5-10.1) Phosphorus Level 5.4 mg/dL (2.6-4.7) Magnesium Level 1.9 mg/dL (1.8-2.4) Triglycerides Level 261 mg/dL (0-150) Laboratory Tests Test 03/18/18 11:35 03/18/18 20:58 03/19/18 06:20 Glucose (Fingerstick) 111 mg/dL (70-99) 131 mg/dL (70-99) White Blood Count 9.3 x10^3/uL (4.0-11.0) Red Blood Count 4.17 x10^6/uL (4.30-5.70) Hemoglobin 12.6 g/dL (13.0-17.5) Hematocrit 37.0 % (39.0-53.0) Mean Corpuscular Volume 89 fL (79-100) Mean Corpuscular Hemoglobin 30 pg (25-35) Mean Corpuscular Hemoglobin Concent 34 g/dL (31-37) Red Cell Distribution Width 13.6 % (11.5-14.5) Platelet Count 630 x10^3/uL (140-400) Neutrophils (%) (Auto) 65 % (31-73) Lymphocytes (%) (Auto) 22 % (24-48) Monocytes (%) (Auto) 9 % (0-9) Eosinophils (%) (Auto) 4 % (0-3) Basophils (%) (Auto) 1 % (0-3) Neutrophils # (Auto) 6.0 x10^3uL (1.8-7.7) Lymphocytes # (Auto) 2.0 x10^3/uL (1.0-4.8) Monocytes # (Auto) 0.8 x10^3/uL (0.0-1.1) Eosinophils # (Auto) 0.4 x10^3/uL (0.0-0.7) Basophils # (Auto) 0.1 x10^3/uL (0.0-0.2) Sodium Level 136 mmol/L (136-145) Potassium Level 4.2 mmol/L (3.5-5.1) Chloride Level 102 mmol/L (98-107) Carbon Dioxide Level 27 mmol/L (21-32) Anion Gap 7 (6-14) Blood Urea Nitrogen 19 mg/dL (8-26) Creatinine 1.0 mg/dL (0.7-1.3) Estimated GFR (Cockcroft-Gault) 84.5 Glucose Level 103 mg/dL (70-99) Calcium Level 9.8 mg/dL (8.5-10.1) Phosphorus Level 5.4 mg/dL (2.6-4.7) Magnesium Level 1.9 mg/dL (1.8-2.4) Triglycerides Level 261 mg/dL (0-150) Microbiology 03/09/18 Blood Culture - Final, Complete NO GROWTH AFTER 5 DAYS Medications Current Medications Sodium Chloride (Normal Saline Flush) 3 ml QSHIFT PRN IV AFTER MEDS AND BLOOD DRAWS; Start 03/07/18 at 11:00 Sodium Chloride 1,000 ml @ 1,000 mls/hr Q1H IV Last administered on 03/07/18at 11:32; Start 03/07/18 at 11:00; Stop 03/07/18 at 11:59; Status DC Iohexol (Omnipaque 300 Mg/ml) 75 ml 1X ONCE IV Last administered on 03/07/18at 12:46; Start 03/07/18 at 11:15; Stop 03/07/18 at 11:16; Status DC Info (CONTRAST GIVEN -- Rx MONITORING) 1 each PRN DAILY PRN MC SEE COMMENTS; Start 03/07/18 at 11:15; Stop 03/09/18 at 11:14; Status DC Sodium Chloride 1,000 ml @ 1,000 mls/hr 1X ONCE IV Last administered on at 12:37; Start 03/07/18 at 12:00; Stop 03/07/18 at 12:59; Status DC Fentanyl Citrate (Fentanyl 2ml Vial) 50 mcg 1X ONCE IV Last administered on 03/07/18at 13:07; Start 03/07/18 at 13:00; Stop 03/07/18 at 13:01; Status DC Metronidazole 100 ml @ 100 mls/hr 1X ONCE IV ; Start 03/07/18 at 13:30; Stop at 14:29; Status DC Ciprofloxacin/ Dextrose 200 ml @ 200 mls/hr ONCE STAT IV Last administered on 03/07/18at 13:42; Start 03/07/18 at 13:12; Stop 03/07/18 at 14:11; Status DC Piperacillin Sod/ Tazobactam Sod 3.375 gm/Sodium Chloride 50 ml @ 100 mls/hr 1X ONCE IV Last administered on 03/07/18at 14:43; Start 03/07/18 at 14:30; Stop 03/07/18 at 14:59; Status DC Diphenhydramine HCl (Benadryl) 50 mg 1X ONCE IVP Last administered on at 14:33; Start 03/07/18 at 14:15; Stop 03/07/18 at 14:16; Status DC Fentanyl Citrate (Fentanyl 2ml Vial) 25 mcg 1X ONCE IV ; Start 03/07/18 at 14:15 ; Stop 03/07/18 at 14:16; Status Cancel Morphine Sulfate (Morphine Sulfate) 4 mg 1X ONCE IV Last administered on at 14:35; Start 03/07/18 at 14:30; Stop 03/07/18 at 14:31; Status DC Ondansetron HCl (Zofran) 4 mg PRN Q8HRS PRN IV NAUSEA/VOMITING; Start 03/07/18 at 14:30; Stop 03/08/18 at 14:29; Status DC Morphine Sulfate (Morphine Sulfate) 4 mg PRN Q2HR PRN IV PAIN Last administered on 03/08/18at 08:20; Start 03/07/18 at 14:30; Stop 03/08/18 at 14:29; Status DC Piperacillin Sod/ Tazobactam Sod 3.375 gm/Sodium Chloride 50 ml @ 100 mls/hr Q6HRS IV Last administered on 03/19/18at 05:25; Start 03/07/18 at 18:00 Metronidazole 100 ml @ 100 mls/hr Q8HRS IV Last administered on 03/09/18at 11:19 ; Start 03/07/18 at 22:00; Stop 03/09/18 at 15:10; Status DC Sodium Chloride 500 ml @ 500 mls/hr 1X ONCE IV Last administered on 03/07/18at 16:45; Start 03/07/18 at 16:45; Stop 03/07/18 at 17:44; Status DC Amino Acids/ Glycerin/ Electrolytes 1,000 ml @ 80 mls/hr [id number] IV Last administered on 03/11/18at 07:47; Start 03/07/18 at 16:45; Stop 03/11/18 at 20:21; Status DC Acetaminophen (Tylenol) 650 mg PRN Q6HRS PRN PO fever Last administered on at 13:38; Start 03/07/18 at 18:00 Pantoprazole Sodium (PROTONIX VIAL for IV PUSH) 40 mg DAILYAC IVP Last administered on 03/14/18at 08:10; Start 03/08/18 at 07:45; Stop 03/14/18 at 17:45; Status DC Morphine Sulfate (Morphine Sulfate) 4 mg PRN Q2HR PRN IV MODRATE-SEVERE PAIN 2ND CHOICE Last administered on 03/15/18at 22:01; Start 03/08/18 at 14:45 Lorazepam (Ativan) 1 mg PRN Q4HRS PRN IV ANXIETY / AGITATION Last administered on 03/18/18at 21:02; Start 03/08/18 at 20:30 Ondansetron HCl (Zofran) 4 mg PRN Q6HRS PRN IV NAUSEA/VOMITING 1ST CHOICE Last administered on 03/14/18at 12:16; Start 03/09/18 at 02:00 Etomidate (Amidate) 20 mg STK-MED ONCE IV ; Start 03/09/18 at 06:55; Stop at 06:56; Status DC Norepinephrine Bitartrate 250 ml @ As Directed STK-MED ONCE IV ; Start 03/09/18 at 06:55; Stop 03/09/18 at 06:56; Status DC Midazolam HCl (Versed) 5 mg STK-MED ONCE .ROUTE ; Start 03/09/18 at 06:55; Stop 03/09/18 at 06:56; Status DC Fentanyl Citrate (Fentanyl 2ml Vial) 100 mcg STK-MED ONCE .ROUTE ; Start at 06:55; Stop 03/09/18 at 06:56; Status DC Succinylcholine Chloride (Anectine) 200 mg STK-MED ONCE .ROUTE ; Start 03/09/18 at 06:56; Stop 03/09/18 at 06:57; Status DC Fentanyl Citrate 30 ml @ 0 mls/hr CONT PRN IV PER PROTOCOL Last administered on 03/13/18at 03:06; Start 03/09/18 at 07:00; Stop 03/13/18 at 16:35; Status DC Fentanyl Citrate (Fentanyl 2ml Vial) 25 mcg PRN Q1HR PRN IV MILD PAIN Last administered on 03/18/18at 13:38; Start 03/09/18 at 07:00 Fentanyl Citrate (Fentanyl 2ml Vial) 50 mcg PRN Q1HR PRN IV MOD TO SEVERE PAIN ; Start 03/09/18 at 07:00 Chlorhexidine Gluconate (Peridex) 15 ml BID MM Last administered on 03/14/18at 08 :11; Start 03/09/18 at 09:00; Stop 03/15/18 at 07:33; Status DC Midazolam HCl (Versed) 2 mg PRN Q30MIN PRN IV SEDATION; Start 03/09/18 at 07:00 ; Stop 03/10/18 at 10:26; Status DC Midazolam HCl 100 ml @ 0 mls/hr CONT PRN IV PER PROTOCOL Last administered on at 14:07; Start 03/09/18 at 07:00; Stop 03/13/18 at 16:35; Status DC Enoxaparin Sodium (Lovenox 40mg Syringe) 40 mg Q12H SQ Last administered on 03/10at 09:31; Start 03/09/18 at 09:00; Stop 03/10/18 at 12:01; Status DC Sodium Chloride 1,000 ml @ 75 mls/hr [id number] IV Last administered on 03/14/18at 02:48; Start 03/09/18 at 10:15; Stop 03/14/18 at 10:32; Status DC Sodium Chloride 1,000 ml @ 1,000 mls/hr 1X ONCE IV Last administered on at 10:15; Start 03/09/18 at 10:15; Stop 03/09/18 at 11:14; Status DC Norepinephrine Bitartrate 250 ml @ As Directed STK-MED ONCE IV ; Start 03/09/18 at 10:37; Stop 03/09/18 at 10:38; Status DC Phenylephrine HCl 20 mg/Sodium Chloride 252 ml @ 22.68 mls/ hr 1X ONCE IV ; Start 03/09/18 at 10:45; Stop 03/09/18 at 21:51; Status DC Iohexol (Omnipaque 300 Mg/ml) 75 ml 1X ONCE IV ; Start 03/09/18 at 11:30; Stop 03/09/18 at 11:35; Status DC Micafungin Sodium 100 mg/Dextrose 100 ml @ 100 mls/hr Q24H IV Last administered on 03/18/18at 16:19; Start 03/09/18 at 16:00 Linezolid/Dextrose 300 ml @ 300 mls/hr Q12H IV Last administered on 03/14/18at 04:58; Start 03/09/18 at 17:00; Stop 03/14/18 at 09:14; Status DC Norepinephrine Bitartrate 250 ml @ 1.875 mls/ hr CONT PRN IV SEE I/O RECORD Last administered on 03/09/18at 16:18; Start 03/09/18 at 16:00; Stop 03/15/18 at 12 :46; Status DC Furosemide (Lasix) 40 mg 1X ONCE IVP Last administered on 03/10/18at 08:49; Start 03/10/18 at 09:00; Stop 03/10/18 at 09:01; Status DC Perflutren Protein Type A Microsphe (Optison) 0.66 mg STK-MED ONCE IV ; Start at 10:23; Stop 03/10/18 at 10:25; Status DC Enoxaparin Sodium (Lovenox Per Pharmacy Treatment Dosing) 1 each PRN DAILY PRN MC SEE COMMENTS; Start 03/10/18 at 12:00; Stop 03/11/18 at 12:50; Status DC Enoxaparin Sodium (Lovenox 150mg Syringe) 130 mg Q12H SQ Last administered on at 07:48; Start 03/10/18 at 21:00; Stop 03/11/18 at 12:51; Status DC Enoxaparin Sodium (Lovenox 100mg Syringe) 90 mg 1X ONCE SQ Last administered on 03/10/18at 13:53; Start 03/10/18 at 12:30; Stop 03/10/18 at 12:31; Status DC Perflutren Protein Type A Microsphe (Optison) 0.66 mg 1X ONCE IV Last administered on 03/10/18at 12:55; Start 03/10/18 at 13:00; Stop 03/10/18 at 13:01; Status DC Iohexol (Omnipaque 300 Mg/ml) 75 ml 1X ONCE IV Last administered on 03/11/18at 10:00; Start 03/11/18 at 09:00; Stop 03/11/18 at 09:01; Status DC Info (CONTRAST GIVEN -- Rx MONITORING) 1 each PRN DAILY PRN MC SEE COMMENTS; Start 03/11/18 at 09:00; Stop 03/13/18 at 08:59; Status DC Norepinephrine Bitartrate (Levophed 8mg/ 250ml Premix Drip) 8 mg STK-MED ONCE IV ; Start 03/09/18 at 07:00; Stop 03/11/18 at 08:58; Status DC Insulin Human Lispro (HumaLOG) 0-5 UNITS TIDWMEALS SQ Last administered on 03/16at 09:13; Start 03/11/18 at 12:00 Dextrose (Dextrose 50%-Water Syringe) 12.5 gm PRN Q15MIN PRN IV SEE COMMENTS; Start 03/11/18 at 09:15 Potassium Chloride/Water 50 ml @ 50 mls/hr 1X ONCE IV Last administered on 03/11at 09:43; Start 03/11/18 at 10:00; Stop 03/11/18 at 10:59; Status DC Info (Anti-Coagulation Monitoring By Pharmacy) 1 each PRN DAILY PRN MC SEE COMMENTS; Start 03/11/18 at 09:30; Stop 03/11/18 at 12:51; Status DC Info (Tpn Per Pharmacy) 1 each PRN DAILY PRN MC SEE COMMENTS Last administered on 03/18/18at 13:50; Start 03/11/18 at 11:15 Magnesium Sulfate 50 ml @ 25 mls/hr 1X ONCE IV Last administered on 03/11/18at 15:09; Start 03/11/18 at 16:00; Stop 03/11/18 at 17:59; Status DC Potassium Phosphate 13.6 mmol/Dextrose 104.5333 ml @ 52.267 m... ONCE ONCE IV Last administered on 03/11/18at 17:11; Start 03/11/18 at 18:00; Stop 03/11/18 at 19:59; Status DC Norepinephrine Bitartrate (Levophed 8mg/ 250ml Premix Drip) 8 mg STK-MED ONCE IV ; Start 03/09/18 at 11:00; Stop 03/11/18 at 12:37; Status DC Enoxaparin Sodium (Lovenox 40mg Syringe) 40 mg Q12HR SQ Last administered on at 08:28; Start 03/11/18 at 21:00 Sodium Chloride 90 meq/Potassium Chloride 50 meq/ Potassium Phosphate 13.6 mmol/ Magnesium Sulfate 10 meq/ Multivitamins 10 ml/Chromium/ Copper/Manganese/ Seleni /Zn 1 ml/ Total Parenteral Nutrition/Amino Acids/Dextrose/ Fat Emulsion Intravenous 1,800 ml @ 75 mls/hr TPN CONT IV Last administered on 03/11/18at 21 :44; Start 03/11/18 at 22:00; Stop 03/12/18 at 21:59; Status DC Potassium Chloride/Water 50 ml @ 50 mls/hr 1X ONCE IV Last administered on 03/12at 10:40; Start 03/12/18 at 09:30; Stop 03/12/18 at 10:29; Status DC Sodium Chloride 90 meq/Potassium Acetate 70 meq/ Potassium Phosphate 10 mmol/ Magnesium Sulfate 10 meq/ Multivitamins 10 ml/Chromium/ Copper/Manganese/ Seleni /Zn 1 ml/ Total Parenteral Nutrition/Amino Acids/Dextrose/ Fat Emulsion Intravenous 1,800 ml @ 75 mls/hr TPN CONT IV ; Start 03/12/18 at 22:00; Stop at 22:00; Status DC Sodium Chloride 90 meq/Potassium Chloride 70 meq/ Potassium Phosphate 10 mmol/ Magnesium Sulfate 10 meq/ Multivitamins 10 ml/Chromium/ Copper/Manganese/ Seleni /Zn 1 ml/ Total Parenteral Nutrition/Amino Acids/Dextrose/ Fat Emulsion Intravenous 1,800 ml @ 75 mls/hr TPN CONT IV Last administered on 03/12/18at 21 :41; Start 03/12/18 at 22:00; Stop 03/13/18 at 21:59; Status DC Benzocaine (Hurricaine One) 1 spray 1X ONCE MM ; Start 03/13/18 at 12:45; Stop 03/13/18 at 12:45; Status DC Promethazine HCl/ Codeine (Phenergan With Codeine) 5 ml PRN Q6HRS PRN PO COUGH Last administered on 03/14/18at 08:10; Start 03/13/18 at 12:45 Benzocaine (Hurricaine One) 1 spray 1X ONCE MM ; Start 03/13/18 at 12:45; Stop 03/13/18 at 12:45; Status DC Benzocaine (Hurricaine One) 1 spray 1X ONCE MM Last administered on 03/13/18at 16:11; Start 03/13/18 at 12:45; Stop 03/13/18 at 12:46; Status DC Sodium Chloride 90 meq/Potassium Chloride 70 meq/ Potassium Phosphate 13.6 mmol/ Magnesium Sulfate 10 meq/ Multivitamins 10 ml/Chromium/ Copper/Manganese/ Seleni /Zn 1 ml/ Total Parenteral Nutrition/Amino Acids/Dextrose/ Fat Emulsion Intravenous 1,800 ml @ 75 mls/hr TPN CONT IV Last administered on 03/13/18at 21 :53; Start 03/13/18 at 22:00; Stop 03/14/18 at 21:59; Status DC Propofol 100 ml @ As Directed STK-MED ONCE IV ; Start 03/13/18 at 15:47; Stop at 15:48; Status DC Propofol 100 ml @ 0 mls/hr CONT PRN IV PER PROTOCOL Last administered on at 05:04; Start 03/13/18 at 16:45; Stop 03/14/18 at 17:45; Status DC Hydralazine HCl (Apresoline Inj) 10 mg PRN Q4HRS PRN IVP ELEVATED BP, SEE COMMENTS Last administered on 03/15/18at 11:37; Start 03/14/18 at 09:00 Albuterol/ Ipratropium (Duoneb) 3 ml RTQID NEB Last administered on 03/15/18at 08:27; Start 03/14/18 at 12:00; Stop 03/15/18 at 11:01; Status DC Albuterol/ Ipratropium (Duoneb) 3 ml 1X ONCE NEB Last administered on at 09:36; Start 03/14/18 at 09:30; Stop 03/14/18 at 09:31; Status DC Dexmedetomidine HCl 200 mcg/ Sodium Chloride 50 ml @ 0 mls/hr CONT PRN IV PER PROTOCOL Last administered on 03/14/18at 14:17; Start 03/14/18 at 10:30; Stop 03/15 at 07:33; Status DC Sodium Chloride 500 ml @ 500 mls/hr 1X PRN PRN IV SEE COMMENTS; Start 03/14/18 at 10:30 Atropine Sulfate (ATROPINE 0.5mg SYRINGE) 0.5 mg PRN Q5MIN PRN IV SEE COMMENTS ; Start 03/14/18 at 10:30 Furosemide (Lasix) 40 mg 1X ONCE IVP Last administered on 03/14/18at 10:45; Start 03/14/18 at 10:30; Stop 03/14/18 at 10:31; Status DC Sodium Chloride 90 meq/Potassium Chloride 70 meq/ Potassium Phosphate 13.6 mmol/ Magnesium Sulfate 10 meq/ Multivitamins 10 ml/Chromium/ Copper/Manganese/ Seleni /Zn 1 ml/ Total Parenteral Nutrition/Amino Acids/Dextrose/ Fat Emulsion Intravenous 1,800 ml @ 75 mls/hr TPN CONT IV Last administered on 03/14/18at 22 :33; Start 03/14/18 at 22:00; Stop 03/15/18 at 21:59; Status DC Pantoprazole Sodium (PROTONIX VIAL for IV PUSH) 40 mg BID IVP Last administered on 03/17/18at 09:09; Start 03/15/18 at 09:00; Stop 03/17/18 at 14:19 ; Status DC Iohexol (Omnipaque 300 Mg/ml) 75 ml 1X ONCE IV Last administered on 03/15/18at 06:15; Start 03/15/18 at 06:15; Stop 03/15/18 at 06:16; Status DC Iohexol (Omnipaque 240 Mg/ml) 50 ml 1X ONCE PO Last administered on 03/15/18at 06:15; Start 03/15/18 at 06:15; Stop 03/15/18 at 06:16; Status DC Info (CONTRAST GIVEN -- Rx MONITORING) 1 each PRN DAILY PRN MC SEE COMMENTS; Start 03/15/18 at 06:15; Stop 03/17/18 at 06:14; Status DC Labetalol HCl (Normodyne) 20 mg PRN Q2HR PRN IVP HTN 1ST CHOICE SEE COMMENTS Last administered on 03/15/18at 09:46; Start 03/15/18 at 09:30 Ipratropium [place] (Atrovent) 0.5 mg 1X ONCE NEB ; Start 03/15/18 at 12:00; Stop 03/15/18 at 12:00; Status DC Ipratropium [place] (Atrovent) 0.5 mg RTQID NEB Last administered on 03/18/18at 20:15; Start 03/15/18 at 12:00 Metoprolol Tartrate (Lopressor Vial) 5 mg Q6HRS IVP Last administered on at 12:56; Start 03/15/18 at 12:00; Stop 03/15/18 at 18:14; Status DC Carvedilol (Coreg) 12.5 mg BIDWMEALS PO Last administered on 03/19/18at 08:28; Start 03/15/18 at 17:00 Sodium Chloride 90 meq/Potassium Chloride 70 meq/ Potassium Phosphate 5 mmol/ Magnesium Sulfate 10 meq/ Multivitamins 10 ml/Chromium/ Copper/Manganese/ Seleni /Zn 1 ml/ Total Parenteral Nutrition/Amino Acids/Dextrose/ Fat Emulsion Intravenous 1,800 ml @ 75 mls/hr TPN CONT IV Last administered on 03/15/18at 21:17; Start 03/15/18 at 22:00; Stop 03/16/18 at 21:59; Status DC Phenazopyridine HCl (Pyridium) 200 mg PRN TID PRN PO URINARY PAIN; Start at 11:15 Sodium Chloride 90 meq/Potassium Chloride 70 meq/ Potassium Phosphate 5 mmol/ Magnesium Sulfate 10 meq/ Multivitamins 10 ml/Chromium/ Copper/Manganese/ Seleni /Zn 1 ml/ Total Parenteral Nutrition/Amino Acids/Dextrose/ Fat Emulsion Intravenous 1,800 ml @ 75 mls/hr TPN CONT IV Last administered on 03/16/18at 20:27; Start 03/16/18 at 22:00; Stop 03/17/18 at 21:59; Status DC Pantoprazole Sodium (PROTONIX VIAL for IV PUSH) 40 mg DAILY IVP Last administered on 03/19/18at 08:28; Start 03/18/18 at 09:00 Sodium Chloride 1,000 ml @ 60 mls/hr [id number] IV ; Start 03/18/18 at 07:30 Sodium Chloride 90 meq/Potassium Chloride 70 meq/ Potassium Phosphate 5 mmol/ Magnesium Sulfate 10 meq/ Multivitamins 10 ml/Chromium/ Copper/Manganese/ Seleni /Zn 1 ml/ Total Parenteral Nutrition/Amino Acids/Dextrose/ Fat Emulsion Intravenous 1,800 ml @ 75 mls/hr TPN CONT IV Last administered on 03/17/18at 21:10; Start 03/17/18 at 22:00; Stop 03/18/18 at 21:59; Status DC Iohexol (Omnipaque 300 Mg/ml) 100 ml STK-MED ONCE .ROUTE ; Start 03/18/18 at 07: 21; Stop 03/18/18 at 07:22; Status DC Lidocaine HCl (Lidocaine 1% Pf) 30 ml STK-MED ONCE .ROUTE ; Start 03/18/18 at 07 :21; Stop 03/18/18 at 07:22; Status DC Heparin Sodium/ Sodium Chloride 1,000 ml @ As Directed STK-MED ONCE .ROUTE ; Start 03/18/18 at 07:22; Stop 03/18/18 at 07:23; Status DC Fentanyl Citrate (Fentanyl 2ml Vial) 100 mcg STK-MED ONCE .ROUTE ; Start at 10:12; Stop 03/18/18 at 10:13; Status DC Midazolam HCl (Versed) 2 mg STK-MED ONCE .ROUTE ; Start 03/18/18 at 10:12; Stop 03/18/18 at 10:13; Status DC Heparin Sodium (Porcine) (Heparin Sodium) 10,000 unit STK-MED ONCE .ROUTE ; Start 03/18/18 at 10:13; Stop 03/18/18 at 10:14; Status DC Verapamil HCl (Verapamil) 5 mg STK-MED ONCE .ROUTE ; Start 03/18/18 at 10:13; Stop 03/18/18 at 10:14; Status DC Nitroglycerin (Nitroglycerin) 200 mcg STK-MED ONCE .ROUTE ; Start 03/18/18 at 10 :13; Stop 03/18/18 at 10:14; Status DC Nitroglycerin (Nitroglycerin) 200 mcg 1X ONCE IART Last administered on at 10:43; Start 03/18/18 at 10:45; Stop 03/18/18 at 10:46; Status DC Verapamil HCl (Verapamil) 2.5 mg 1X ONCE IART Last administered on 03/18/18at 10:44; Start 03/18/18 at 10:45; Stop 03/18/18 at 10:46; Status DC Heparin Sodium (Porcine) (Heparin Sodium) 2,500 unit 1X ONCE IART Last administered on 03/18/18at 10:45; Start 03/18/18 at 10:45; Stop 03/18/18 at 10:46 ; Status DC Heparin Sodium/ Sodium Chloride (HEPARIN for ARTERIAL LINE FLUSH) 1,000 unit 1X ONCE IART Last administered on 03/18/18at 10:43; Start 03/18/18 at 10:45; Stop 03/18/18 at 10:46; Status DC Heparin Sodium/ Sodium Chloride (HEPARIN for ARTERIAL LINE FLUSH) 1,000 unit 1X ONCE IART Last administered on 03/18/18at 10:43; Start 03/18/18 at 10:45; Stop 03/18/18 at 10:46; Status DC Midazolam HCl (Versed) 2 mg 1X ONCE IV Last administered on 03/18/18at 10:44; Start 03/18/18 at 10:45; Stop 03/18/18 at 10:46; Status DC Fentanyl Citrate (Fentanyl 2ml Vial) 50 mcg 1X ONCE IV Last administered on at 10:45; Start 03/18/18 at 10:45; Stop 03/18/18 at 10:46; Status DC Iohexol (Omnipaque 300 Mg/ml) 112 ml 1X ONCE IART Last administered on at 10:46; Start 03/18/18 at 10:45; Stop 03/18/18 at 10:46; Status DC Lidocaine HCl 1 ml 1X ONCE IJ Last administered on 03/18/18at 10:46; Start at 10:45; Stop 03/18/18 at 10:46; Status DC Info (CONTRAST GIVEN -- Rx MONITORING) 1 each PRN DAILY PRN MC SEE COMMENTS; Start 03/18/18 at 10:45; Stop 03/20/18 at 10:44 Sodium Chloride 1,000 ml @ 60 mls/hr [id number] IV ; Start 03/18/18 at 10:42 Nitroglycerin (Nitrostat) 0.4 mg PRN Q5MIN PRN SL CHEST PAIN; Start 03/18/18 at 10:45 Sodium Chloride 90 meq/Potassium Chloride 70 meq/ Magnesium Sulfate 10 meq/ Multivitamins 10 ml/Chromium/ Copper/Manganese/ Seleni/Zn 1 ml/ Total Parenteral Nutrition/Amino Acids/Dextrose/ Fat Emulsion Intravenous 1,800 ml @ 75 mls/hr TPN CONT IV ; Start 03/18/18 at 22:00; Stop 03/19/18 at 21:59 Active Scripts Active Reported Amlodipine Besylate 5 Mg Tablet 5 Mg PO DAILY Omeprazole 40 Mg Capsule. 1 Cap PO BID Vitals/I & O Vital Sign - Last 24 Hours 03/18/18 03/18/18 03/18/18 03/18/18 10:44 10:45 10:48 11:00 Temp 97.6 97.6 Pulse 85 82 83 Resp 18 20 20 B/P (MAP) 140/86 (104) Pulse Ox 94 93 92 O2 Delivery Nasal Cannula Nasal Cannula Room Air O2 Flow Rate 2.0 2.0 03/18/18 03/18/18 03/18/18 03/18/18 13:38 14:46 15:00 15:05 Temp 97.4 97.4 Pulse 88 Resp 20 B/P (MAP) 148/100 (116) Pulse Ox 93 O2 Delivery Room Air Room Air Room Air Room Air 03/18/18 03/18/18 03/18/18 03/19/18 16:21 19:50 23:05 03:15 Temp 98.1 97.8 98.1 98.1 97.8 98.1 Pulse 88 88 82 87 Resp 20 22 18 B/P (MAP) 148/100 136/84 (101) 124/57 (79) 129/76 (93) Pulse Ox 93 96 93 O2 Delivery Room Air Nasal Cannula Room Air O2 Flow Rate 2.0 03/19/18 03/19/18 03/19/18 07:00 07:47 08:28 Temp 97.6 97.6 Pulse 95 92 Resp 20 B/P (MAP) 147/83 (104) Pulse Ox 97 94 O2 Delivery Room Air Room Air Intake and Output 03/18/18 03/18/18 03/19/18 15:00 23:00 07:00 Intake Total 350 ml 1010 ml Output Total 600 ml Balance 350 ml 410 ml KEO AYALA III DO Mar 19, 2018 09:39
[2018-03-19 11:00] VITALS: BP 145/104
[2018-03-19] MEDS: IPRATROPIUM BROMIDE 0.5 MG/2.5 ML NEBU. NEB SCH ×3 (11:40→19:33)
[2018-03-19] MEDS: ACETAMINOPHEN 325 MG TABLET. PO PRN ×2 (12:00→20:29)
--- NOTE | 2018-03-19 12:40 | PDOC ---
PULMONARY PROGRESS NOTES Subjective Patient with no shortness of air Vitals Vital Signs Date Time Temp Pulse Resp B/P (MAP) Pulse Ox O2 Delivery O2 Flow Rate FiO2 03/19/18 11:41 95 Room Air 03/19/18 11:00 89 20 145/104 (118) 03/19/18 07:00 97.6 97.6 03/18/18 23:05 2.0 General: Alert, No acute distress Lungs: Clear Cardiovascular: S1, S2 Abdomen: Soft Neuro Exam: Alert Extremities: Other (EDEMA) Skin: Warm Labs Laboratory Tests Test 03/17/18 17:17 03/17/18 20:59 03/18/18 05:45 03/18/18 07:35 Glucose (Fingerstick) 117 mg/dL (70-99) 100 mg/dL (70-99) 148 mg/dL (70-99) Sodium Level 136 mmol/L (136-145) Potassium Level 4.0 mmol/L (3.5-5.1) Chloride Level 102 mmol/L (98-107) Carbon Dioxide Level 26 mmol/L (21-32) Anion Gap 8 (6-14) Blood Urea Nitrogen 20 mg/dL (8-26) Creatinine 0.9 mg/dL (0.7-1.3) Estimated GFR (Cockcroft-Gault) 95.5 Glucose Level 114 mg/dL (70-99) Calcium Level 9.0 mg/dL (8.5-10.1) Phosphorus Level 5.0 mg/dL (2.6-4.7) Magnesium Level 2.0 mg/dL (1.8-2.4) Test 03/18/18 11:35 03/18/18 20:58 03/19/18 06:20 Glucose (Fingerstick) 111 mg/dL (70-99) 131 mg/dL (70-99) White Blood Count 9.3 x10^3/uL (4.0-11.0) Red Blood Count 4.17 x10^6/uL (4.30-5.70) Hemoglobin 12.6 g/dL (13.0-17.5) Hematocrit 37.0 % (39.0-53.0) Mean Corpuscular Volume 89 fL (79-100) Mean Corpuscular Hemoglobin 30 pg (25-35) Mean Corpuscular Hemoglobin Concent 34 g/dL (31-37) Red Cell Distribution Width 13.6 % (11.5-14.5) Platelet Count 630 x10^3/uL (140-400) Neutrophils (%) (Auto) 65 % (31-73) Lymphocytes (%) (Auto) 22 % (24-48) Monocytes (%) (Auto) 9 % (0-9) Eosinophils (%) (Auto) 4 % (0-3) Basophils (%) (Auto) 1 % (0-3) Neutrophils # (Auto) 6.0 x10^3uL (1.8-7.7) Lymphocytes # (Auto) 2.0 x10^3/uL (1.0-4.8) Monocytes # (Auto) 0.8 x10^3/uL (0.0-1.1) Eosinophils # (Auto) 0.4 x10^3/uL (0.0-0.7) Basophils # (Auto) 0.1 x10^3/uL (0.0-0.2) Sodium Level 136 mmol/L (136-145) Potassium Level 4.2 mmol/L (3.5-5.1) Chloride Level 102 mmol/L (98-107) Carbon Dioxide Level 27 mmol/L (21-32) Anion Gap 7 (6-14) Blood Urea Nitrogen 19 mg/dL (8-26) Creatinine 1.0 mg/dL (0.7-1.3) Estimated GFR (Cockcroft-Gault) 84.5 Glucose Level 103 mg/dL (70-99) Calcium Level 9.8 mg/dL (8.5-10.1) Phosphorus Level 5.4 mg/dL (2.6-4.7) Magnesium Level 1.9 mg/dL (1.8-2.4) Triglycerides Level 261 mg/dL (0-150) Laboratory Tests Test 03/18/18 20:58 03/19/18 06:20 Glucose (Fingerstick) 131 mg/dL (70-99) White Blood Count 9.3 x10^3/uL (4.0-11.0) Red Blood Count 4.17 x10^6/uL (4.30-5.70) Hemoglobin 12.6 g/dL (13.0-17.5) Hematocrit 37.0 % (39.0-53.0) Mean Corpuscular Volume 89 fL (79-100) Mean Corpuscular Hemoglobin 30 pg (25-35) Mean Corpuscular Hemoglobin Concent 34 g/dL (31-37) Red Cell Distribution Width 13.6 % (11.5-14.5) Platelet Count 630 x10^3/uL (140-400) Neutrophils (%) (Auto) 65 % (31-73) Lymphocytes (%) (Auto) 22 % (24-48) Monocytes (%) (Auto) 9 % (0-9) Eosinophils (%) (Auto) 4 % (0-3) Basophils (%) (Auto) 1 % (0-3) Neutrophils # (Auto) 6.0 x10^3uL (1.8-7.7) Lymphocytes # (Auto) 2.0 x10^3/uL (1.0-4.8) Monocytes # (Auto) 0.8 x10^3/uL (0.0-1.1) Eosinophils # (Auto) 0.4 x10^3/uL (0.0-0.7) Basophils # (Auto) 0.1 x10^3/uL (0.0-0.2) Sodium Level 136 mmol/L (136-145) Potassium Level 4.2 mmol/L (3.5-5.1) Chloride Level 102 mmol/L (98-107) Carbon Dioxide Level 27 mmol/L (21-32) Anion Gap 7 (6-14) Blood Urea Nitrogen 19 mg/dL (8-26) Creatinine 1.0 mg/dL (0.7-1.3) Estimated GFR (Cockcroft-Gault) 84.5 Glucose Level 103 mg/dL (70-99) Calcium Level 9.8 mg/dL (8.5-10.1) Phosphorus Level 5.4 mg/dL (2.6-4.7) Magnesium Level 1.9 mg/dL (1.8-2.4) Triglycerides Level 261 mg/dL (0-150) Medications Active Scripts Medications Dose Route/Sig Max Daily Dose Days Date Category Amlodipine Besylate 5 Mg Tablet 5 Mg PO DAILY 03/14/18 Reported Omeprazole 40 Mg Capsule.dr 1 Cap PO BID 03/14/18 Reported Comments CTA CHEST REVIEWED 1. Life support devices in appropriate position. 2. No large central pulmonary embolus. Lobar, segmental, subsegmental pulmonary arteries cannot be evaluated due to limited contrast opacification. 3. Moderate consolidations with air bronchograms in the bilateral lower lobes. Considerations include aspiration, pneumonia, or atelectasis. 4. Persistent diverticulitis of the sigmoid colon. There is a small incompletely formed probable peridiverticular abscess. 5. Fatty infiltration of the liver. Electronically signed by: Akbar Naqvi MD (03/11/2018 11:21 AM) [id number] CXR 03/15 reviewed MILD BILATERAL INFIL Impression . IMPRESSION: 1. Acute respiratory failure, status post code blue. Etiology likely ALI/EARLY ARDS due to diverticulitis . Extubated 03/14 2. Status post code blue patient with spontaneous return of circulation after one defibrillation and 2 minutes of chest compressions. 3. Septic shock.resolved 4. Diverticulitis leading to septic shock. ? abscess/ suspected perf. diverticulitis, clinically improved 5. Metabolic acidosis secondary to code blue, increased work of breathing and renal insufficiency. resolved 6. Morbid obesity./suspected ARNIE 7. Leukocytosis. 8. Suspected Obstructive sleep apnea. 9. Possible aspiration pneumonia. 10. No central PE by CTA, Plan . psg out pt, arnie the importance of diagnosis and tx discussed, 02 titration increase activity cardiac cath 03/18, no signif CAD, EF 55 NEG VENOUS DOPPLER ANTIBX PER ID, FOLLOW SURGERY REC OFF TPN GI PROPH D/W RN/ OK WITH HOME F/U WITH ME IN OFFICE APR 02. WILL ARRANGE OP SS LOY TIJERINA MD Mar 19, 2018 12:40
[2018-03-19 15:00] VITALS: BP 124/83
[2018-03-19] MEDS: MICAFUNGIN 100 MG in IV DEXTROSE 5% 100ML 100 ML IV SCH (16:19)
[2018-03-19] MEDS: IV NORMAL SALINE 1000ML BAG 1,000 ML IV SCH (16:50)
[2018-03-19 19:45] VITALS: BP 126/81
[2018-03-19] MEDS: IV 1/2 NORMAL SALINE 1,000 ML IV SCH (20:02)
[2018-03-19 23:00] VITALS: BP 120/62
[2018-03-20 03:00] VITALS: BP 120/71
[2018-03-20] MEDS: PIPERACILLIN/TAZOBACTAM 3.375 GM in IV NORMAL SALINE 50ML 50 ML IV SCH ×2 (05:15→11:57)
[2018-03-20 06:39] LABS: CALCIUM 9.4 mg/dL (8.5-10.1); GFR 84.5
[2018-03-20 06:40] LABS: BASO # 0.1 x10^3/uL (0.0-0.2); BASO % 1 % (0-3); EOS # 0.4 x10^3/uL (0.0-0.7); EOS % 4 % (0-3); HEMATOCRIT 36.1 % (39.0-53.0); HEMOGLOBIN 12.5 g/dL (13.0-17.5); LYMPH % 25 % (24-48); MEAN CORPUSCULAR HEMOGLOBIN 31 pg (25-35); MEAN CORPUSCULAR HGB CONC 35 g/dL (31-37); MEAN CORPUSCULAR VOLUME 89 fL (79-100); MONO # 0.8 x10^3/uL (0.0-1.1); MONO % 10 % (0-9); NEUT # 5.1 x10^3uL (1.8-7.7); NEUT % 61 % (31-73); PLATELET COUNT 606 x10^3/uL (140-400); RED BLOOD COUNT 4.08 x10^6/uL (4.30-5.70); RED CELL DISTRIBUTION WIDTH 13.6 % (11.5-14.5); WHITE BLOOD COUNT 8.3 x10^3/uL (4.0-11.0)
[2018-03-20 07:00] VITALS: BP 124/71
--- NOTE | 2018-03-20 08:05 | PDOC ---
Infectious Disease Note Subjective Subjective feeling really good, no abd pain ROS ROS no n/v/d/fever Vital Sign Vital Signs Vital Signs Date Time Temp Pulse Resp B/P (MAP) Pulse Ox O2 Delivery O2 Flow Rate FiO2 03/20/18 07:32 Room Air 03/20/18 03:00 97.8 91 18 120/71 (87) 96 97.8 03/19/18 23:00 2.0 Physical Exam PHYSICAL EXAM GENERAL: NAD, alert, looks really well, in bed HENT: PERRLA, Oc/Op -clear NECK: no JVD LUNGS: CTA CV: S1/S2 ABDOMEN: Obese, hypoactive but + bowel sounds, soft, no rebound/guard. less distension EXT: No gross edema or cyanosis. right groin dressing clean SKIN: warm without rash NEURO: - alert/appropriate/pleasant Right PICC line - clean Labs Lab Laboratory Tests Test 03/20/18 06:10 White Blood Count 8.3 x10^3/uL (4.0-11.0) Red Blood Count 4.08 x10^6/uL (4.30-5.70) Hemoglobin 12.5 g/dL (13.0-17.5) Hematocrit 36.1 % (39.0-53.0) Mean Corpuscular Volume 89 fL (79-100) Mean Corpuscular Hemoglobin 31 pg (25-35) Mean Corpuscular Hemoglobin Concent 35 g/dL (31-37) Red Cell Distribution Width 13.6 % (11.5-14.5) Platelet Count 606 x10^3/uL (140-400) Neutrophils (%) (Auto) 61 % (31-73) Lymphocytes (%) (Auto) 25 % (24-48) Monocytes (%) (Auto) 10 % (0-9) Eosinophils (%) (Auto) 4 % (0-3) Basophils (%) (Auto) 1 % (0-3) Neutrophils # (Auto) 5.1 x10^3uL (1.8-7.7) Lymphocytes # (Auto) 2.0 x10^3/uL (1.0-4.8) Monocytes # (Auto) 0.8 x10^3/uL (0.0-1.1) Eosinophils # (Auto) 0.4 x10^3/uL (0.0-0.7) Basophils # (Auto) 0.1 x10^3/uL (0.0-0.2) Sodium Level 139 mmol/L (136-145) Potassium Level 4.0 mmol/L (3.5-5.1) Chloride Level 102 mmol/L (98-107) Carbon Dioxide Level 29 mmol/L (21-32) Anion Gap 8 (6-14) Blood Urea Nitrogen 19 mg/dL (8-26) Creatinine 1.0 mg/dL (0.7-1.3) Estimated GFR (Cockcroft-Gault) 84.5 Glucose Level 110 mg/dL (70-99) Calcium Level 9.4 mg/dL (8.5-10.1) Micro Microbiology 03/09/18 Blood Culture - Final, Complete NO GROWTH AFTER 5 DAYS Objective Assessment Fever - better s/p code blue, 03/09 Sepsis w/ hypotension requiring vasopressor support previously but now off. - BC from 03/07 NGTD. Fever curve improving Leukocytosis - better Acute diverticulitis with microperforation -gen surgery following, on bowel rest - with two abscess on CT Allergy Cipro - rash RONNY Acute respiratory failure ? ARDS developing -improving per Dr. Galo Substance abuse. urine tox + cocaine and marijuana 03/07 & 03/09 PUD / GERD Etoh dependence Morbid obesity, BMI 41 Hypertension Recently hosp [facility] & EGD- ulcers Rx on omeprazole per Plan Plan of Care Clinically he is much improved Continue Zosyn for now tolerating regular food Cardiac cath 03/18 neg Monitor labs/VSS D/w pt and in detail,,, oral vs iv options discussed ( has two un drained abscess), pt and is not comfortable with oral option, will d/c on iv to have ct next wk Sunday and f/u with me on Sun/ pros and cons discussed, failure possibility discussed in detail D/w RAFFI ALLEN MD Mar 20, 2018 08:05
[2018-03-20] MEDS: IPRATROPIUM BROMIDE 0.5 MG/2.5 ML NEBU. NEB SCH ×3 (08:07→15:12)
[2018-03-20] MEDS: PANTOPRAZOLE IV PUSH 40 MG VIAL. IVP SCH (08:17)
[2018-03-20] MEDS: CARVEDILOL 12.5 MG TABLET. PO SCH ×2 (08:18→16:40)
[2018-03-20] MEDS: ENOXAPARIN 40 MG/0.4 ML SYRINGE. SQ SCH (08:19)
[2018-03-20] MEDS: ACETAMINOPHEN 325 MG TABLET. PO PRN ×2 (08:22→15:29)
[2018-03-20] MEDS ORDERED: LACTOBACILLUS RHAMNOSUS GG 1 CAPSULE. PO SCH (09:00)
[2018-03-20] MEDS: IV NORMAL SALINE 1000ML BAG 1,000 ML IV SCH (09:30)
[2018-03-20 11:00] VITALS: BP 129/78
[2018-03-20] MEDS: IV 1/2 NORMAL SALINE 1,000 ML IV SCH (12:42)
[2018-03-20] MEDS ORDERED: CARV12.5 PO ×2 (13:13→13:14)
--- NOTE | 2018-03-20 14:23 | PDOC ---
PROGRESS NOTES Chief Complaint Chief Complaint status post cardiac arrest, nonsustained V. 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 outpatient CT outpatient VSS JOCELINE RN Vitals Vitals Vital Signs Date Time Temp Pulse Resp B/P (MAP) Pulse Ox O2 Delivery O2 Flow Rate FiO2 03/20/18 12:12 Room Air 03/20/18 11:00 98.4 80 16 129/78 (95) 97 98.4 03/19/18 23:00 2.0 Physical Exam General: Alert, Oriented X3, Cooperative, No acute distress Heart: Regular rate, Normal S1, Normal S2 Lungs: Clear Abdomen: Soft, No tenderness Extremities: No clubbing, No cyanosis, No edema Skin: No rashes, No breakdown Labs LABS Laboratory Tests Test 03/20/18 06:10 White Blood Count 8.3 x10^3/uL (4.0-11.0) Red Blood Count 4.08 x10^6/uL (4.30-5.70) Hemoglobin 12.5 g/dL (13.0-17.5) Hematocrit 36.1 % (39.0-53.0) Mean Corpuscular Volume 89 fL (79-100) Mean Corpuscular Hemoglobin 31 pg (25-35) Mean Corpuscular Hemoglobin Concent 35 g/dL (31-37) Red Cell Distribution Width 13.6 % (11.5-14.5) Platelet Count 606 x10^3/uL (140-400) Neutrophils (%) (Auto) 61 % (31-73) Lymphocytes (%) (Auto) 25 % (24-48) Monocytes (%) (Auto) 10 % (0-9) Eosinophils (%) (Auto) 4 % (0-3) Basophils (%) (Auto) 1 % (0-3) Neutrophils # (Auto) 5.1 x10^3uL (1.8-7.7) Lymphocytes # (Auto) 2.0 x10^3/uL (1.0-4.8) Monocytes # (Auto) 0.8 x10^3/uL (0.0-1.1) Eosinophils # (Auto) 0.4 x10^3/uL (0.0-0.7) Basophils # (Auto) 0.1 x10^3/uL (0.0-0.2) Sodium Level 139 mmol/L (136-145) Potassium Level 4.0 mmol/L (3.5-5.1) Chloride Level 102 mmol/L (98-107) Carbon Dioxide Level 29 mmol/L (21-32) Anion Gap 8 (6-14) Blood Urea Nitrogen 19 mg/dL (8-26) Creatinine 1.0 mg/dL (0.7-1.3) Estimated GFR (Cockcroft-Gault) 84.5 Glucose Level 110 mg/dL (70-99) Calcium Level 9.4 mg/dL (8.5-10.1) Review of Systems Review of Systems no co pain no co SOB no co fatigue or dizziness Assessment and Plan Assessmemt and Plan Assessment: status post cardiac arrest, nonsustained V. tach, 2 minutes run of CPR, 03/09/18 acute resp failure with cardia arrest , possible aspiration -Diverticulitis of colon with perforation septic shock required pressors Fall in hospital Cardiomyopathy -GERD -hypertension -overweight -foot surgery drug abuse with cocaine acute systolic and diastolic CHF with EF 35% hypokalemia Plan: home meds PTOT F/U with ID outpatient Probable DC today Comment Review of Relevant I have reviewed the following items kalin (where applicable) has been applied. Labs Laboratory Tests Test 03/18/18 20:58 03/19/18 06:20 03/20/18 06:10 Glucose (Fingerstick) 131 mg/dL (70-99) White Blood Count 9.3 x10^3/uL (4.0-11.0) 8.3 x10^3/uL (4.0-11.0) Red Blood Count 4.17 x10^6/uL (4.30-5.70) 4.08 x10^6/uL (4.30-5.70) Hemoglobin 12.6 g/dL (13.0-17.5) 12.5 g/dL (13.0-17.5) Hematocrit 37.0 % (39.0-53.0) 36.1 % (39.0-53.0) Mean Corpuscular Volume 89 fL (79-100) 89 fL (79-100) Mean Corpuscular Hemoglobin 30 pg (25-35) 31 pg (25-35) Mean Corpuscular Hemoglobin Concent 34 g/dL (31-37) 35 g/dL (31-37) Red Cell Distribution Width 13.6 % (11.5-14.5) 13.6 % (11.5-14.5) Platelet Count 630 x10^3/uL (140-400) 606 x10^3/uL (140-400) Neutrophils (%) (Auto) 65 % (31-73) 61 % (31-73) Lymphocytes (%) (Auto) 22 % (24-48) 25 % (24-48) Monocytes (%) (Auto) 9 % (0-9) 10 % (0-9) Eosinophils (%) (Auto) 4 % (0-3) 4 % (0-3) Basophils (%) (Auto) 1 % (0-3) 1 % (0-3) Neutrophils # (Auto) 6.0 x10^3uL (1.8-7.7) 5.1 x10^3uL (1.8-7.7) Lymphocytes # (Auto) 2.0 x10^3/uL (1.0-4.8) 2.0 x10^3/uL (1.0-4.8) Monocytes # (Auto) 0.8 x10^3/uL (0.0-1.1) 0.8 x10^3/uL (0.0-1.1) Eosinophils # (Auto) 0.4 x10^3/uL (0.0-0.7) 0.4 x10^3/uL (0.0-0.7) Basophils # (Auto) 0.1 x10^3/uL (0.0-0.2) 0.1 x10^3/uL (0.0-0.2) Sodium Level 136 mmol/L (136-145) 139 mmol/L (136-145) Potassium Level 4.2 mmol/L (3.5-5.1) 4.0 mmol/L (3.5-5.1) Chloride Level 102 mmol/L (98-107) 102 mmol/L (98-107) Carbon Dioxide Level 27 mmol/L (21-32) 29 mmol/L (21-32) Anion Gap 7 (6-14) 8 (6-14) Blood Urea Nitrogen 19 mg/dL (8-26) 19 mg/dL (8-26) Creatinine 1.0 mg/dL (0.7-1.3) 1.0 mg/dL (0.7-1.3) Estimated GFR (Cockcroft-Gault) 84.5 84.5 Glucose Level 103 mg/dL (70-99) 110 mg/dL (70-99) Calcium Level 9.8 mg/dL (8.5-10.1) 9.4 mg/dL (8.5-10.1) Phosphorus Level 5.4 mg/dL (2.6-4.7) Magnesium Level 1.9 mg/dL (1.8-2.4) Triglycerides Level 261 mg/dL (0-150) Laboratory Tests Test 03/20/18 06:10 White Blood Count 8.3 x10^3/uL (4.0-11.0) Red Blood Count 4.08 x10^6/uL (4.30-5.70) Hemoglobin 12.5 g/dL (13.0-17.5) Hematocrit 36.1 % (39.0-53.0) Mean Corpuscular Volume 89 fL (79-100) Mean Corpuscular Hemoglobin 31 pg (25-35) Mean Corpuscular Hemoglobin Concent 35 g/dL (31-37) Red Cell Distribution Width 13.6 % (11.5-14.5) Platelet Count 606 x10^3/uL (140-400) Neutrophils (%) (Auto) 61 % (31-73) Lymphocytes (%) (Auto) 25 % (24-48) Monocytes (%) (Auto) 10 % (0-9) Eosinophils (%) (Auto) 4 % (0-3) Basophils (%) (Auto) 1 % (0-3) Neutrophils # (Auto) 5.1 x10^3uL (1.8-7.7) Lymphocytes # (Auto) 2.0 x10^3/uL (1.0-4.8) Monocytes # (Auto) 0.8 x10^3/uL (0.0-1.1) Eosinophils # (Auto) 0.4 x10^3/uL (0.0-0.7) Basophils # (Auto) 0.1 x10^3/uL (0.0-0.2) Sodium Level 139 mmol/L (136-145) Potassium Level 4.0 mmol/L (3.5-5.1) Chloride Level 102 mmol/L (98-107) Carbon Dioxide Level 29 mmol/L (21-32) Anion Gap 8 (6-14) Blood Urea Nitrogen 19 mg/dL (8-26) Creatinine 1.0 mg/dL (0.7-1.3) Estimated GFR (Cockcroft-Gault) 84.5 Glucose Level 110 mg/dL (70-99) Calcium Level 9.4 mg/dL (8.5-10.1) Microbiology 03/09/18 Blood Culture - Final, Complete NO GROWTH AFTER 5 DAYS Medications Current Medications Sodium Chloride (Normal Saline Flush) 3 ml QSHIFT PRN IV AFTER MEDS AND BLOOD DRAWS; Start 03/07/18 at 11:00 Sodium Chloride 1,000 ml @ 1,000 mls/hr Q1H IV Last administered on 03/07/18at 11:32; Start 03/07/18 at 11:00; Stop 03/07/18 at 11:59; Status DC Iohexol (Omnipaque 300 Mg/ml) 75 ml 1X ONCE IV Last administered on 03/07/18at 12:46; Start 03/07/18 at 11:15; Stop 03/07/18 at 11:16; Status DC Info (CONTRAST GIVEN -- Rx MONITORING) 1 each PRN DAILY PRN MC SEE COMMENTS; Start 03/07/18 at 11:15; Stop 03/09/18 at 11:14; Status DC Sodium Chloride 1,000 ml @ 1,000 mls/hr 1X ONCE IV Last administered on at 12:37; Start 03/07/18 at 12:00; Stop 03/07/18 at 12:59; Status DC Fentanyl Citrate (Fentanyl 2ml Vial) 50 mcg 1X ONCE IV Last administered on 03/07/18at 13:07; Start 03/07/18 at 13:00; Stop 03/07/18 at 13:01; Status DC Metronidazole 100 ml @ 100 mls/hr 1X ONCE IV ; Start 03/07/18 at 13:30; Stop at 14:29; Status DC Ciprofloxacin/ Dextrose 200 ml @ 200 mls/hr ONCE STAT IV Last administered on 03/07/18at 13:42; Start 03/07/18 at 13:12; Stop 03/07/18 at 14:11; Status DC Piperacillin Sod/ Tazobactam Sod 3.375 gm/Sodium Chloride 50 ml @ 100 mls/hr 1X ONCE IV Last administered on 03/07/18at 14:43; Start 03/07/18 at 14:30; Stop 03/07/18 at 14:59; Status DC Diphenhydramine HCl (Benadryl) 50 mg 1X ONCE IVP Last administered on at 14:33; Start 03/07/18 at 14:15; Stop 03/07/18 at 14:16; Status DC Fentanyl Citrate (Fentanyl 2ml Vial) 25 mcg 1X ONCE IV ; Start 03/07/18 at 14:15 ; Stop 03/07/18 at 14:16; Status Cancel Morphine Sulfate (Morphine Sulfate) 4 mg 1X ONCE IV Last administered on at 14:35; Start 03/07/18 at 14:30; Stop 03/07/18 at 14:31; Status DC Ondansetron HCl (Zofran) 4 mg PRN Q8HRS PRN IV NAUSEA/VOMITING; Start 03/07/18 at 14:30; Stop 03/08/18 at 14:29; Status DC Morphine Sulfate (Morphine Sulfate) 4 mg PRN Q2HR PRN IV PAIN Last administered on 03/08/18at 08:20; Start 03/07/18 at 14:30; Stop 03/08/18 at 14:29; Status DC Piperacillin Sod/ Tazobactam Sod 3.375 gm/Sodium Chloride 50 ml @ 100 mls/hr Q6HRS IV Last administered on 03/20/18at 11:57; Start 03/07/18 at 18:00 Metronidazole 100 ml @ 100 mls/hr Q8HRS IV Last administered on 03/09/18at 11:19 ; Start 03/07/18 at 22:00; Stop 03/09/18 at 15:10; Status DC Sodium Chloride 500 ml @ 500 mls/hr 1X ONCE IV Last administered on 03/07/18at 16:45; Start 03/07/18 at 16:45; Stop 03/07/18 at 17:44; Status DC Amino Acids/ Glycerin/ Electrolytes 1,000 ml @ 80 mls/hr [id number] IV Last administered on 03/11/18at 07:47; Start 03/07/18 at 16:45; Stop 03/11/18 at 20:21; Status DC Acetaminophen (Tylenol) 650 mg PRN Q6HRS PRN PO fever Last administered on at 08:22; Start 03/07/18 at 18:00 Pantoprazole Sodium (PROTONIX VIAL for IV PUSH) 40 mg DAILYAC IVP Last administered on 03/14/18at 08:10; Start 03/08/18 at 07:45; Stop 03/14/18 at 17:45; Status DC Morphine Sulfate (Morphine Sulfate) 4 mg PRN Q2HR PRN IV MODRATE-SEVERE PAIN 2ND CHOICE Last administered on 03/15/18at 22:01; Start 03/08/18 at 14:45 Lorazepam (Ativan) 1 mg PRN Q4HRS PRN IV ANXIETY / AGITATION Last administered on 03/19/18at 20:26; Start 03/08/18 at 20:30 Ondansetron HCl (Zofran) 4 mg PRN Q6HRS PRN IV NAUSEA/VOMITING 1ST CHOICE Last administered on 03/14/18at 12:16; Start 03/09/18 at 02:00 Etomidate (Amidate) 20 mg STK-MED ONCE IV ; Start 03/09/18 at 06:55; Stop at 06:56; Status DC Norepinephrine Bitartrate 250 ml @ As Directed STK-MED ONCE IV ; Start 03/09/18 at 06:55; Stop 03/09/18 at 06:56; Status DC Midazolam HCl (Versed) 5 mg STK-MED ONCE .ROUTE ; Start 03/09/18 at 06:55; Stop 03/09/18 at 06:56; Status DC Fentanyl Citrate (Fentanyl 2ml Vial) 100 mcg STK-MED ONCE .ROUTE ; Start at 06:55; Stop 03/09/18 at 06:56; Status DC Succinylcholine Chloride (Anectine) 200 mg STK-MED ONCE .ROUTE ; Start 03/09/18 at 06:56; Stop 03/09/18 at 06:57; Status DC Fentanyl Citrate 30 ml @ 0 mls/hr CONT PRN IV PER PROTOCOL Last administered on 03/13/18at 03:06; Start 03/09/18 at 07:00; Stop 03/13/18 at 16:35; Status DC Fentanyl Citrate (Fentanyl 2ml Vial) 25 mcg PRN Q1HR PRN IV MILD PAIN Last administered on 03/18/18at 13:38; Start 03/09/18 at 07:00 Fentanyl Citrate (Fentanyl 2ml Vial) 50 mcg PRN Q1HR PRN IV MOD TO SEVERE PAIN ; Start 03/09/18 at 07:00 Chlorhexidine Gluconate (Peridex) 15 ml BID MM Last administered on 03/14/18at 08 :11; Start 03/09/18 at 09:00; Stop 03/15/18 at 07:33; Status DC Midazolam HCl (Versed) 2 mg PRN Q30MIN PRN IV SEDATION; Start 03/09/18 at 07:00 ; Stop 03/10/18 at 10:26; Status DC Midazolam HCl 100 ml @ 0 mls/hr CONT PRN IV PER PROTOCOL Last administered on at 14:07; Start 03/09/18 at 07:00; Stop 03/13/18 at 16:35; Status DC Enoxaparin Sodium (Lovenox 40mg Syringe) 40 mg Q12H SQ Last administered on 03/10at 09:31; Start 03/09/18 at 09:00; Stop 03/10/18 at 12:01; Status DC Sodium Chloride 1,000 ml @ 75 mls/hr [id number] IV Last administered on 03/14/18at 02:48; Start 03/09/18 at 10:15; Stop 03/14/18 at 10:32; Status DC Sodium Chloride 1,000 ml @ 1,000 mls/hr 1X ONCE IV Last administered on at 10:15; Start 03/09/18 at 10:15; Stop 03/09/18 at 11:14; Status DC Norepinephrine Bitartrate 250 ml @ As Directed STK-MED ONCE IV ; Start 03/09/18 at 10:37; Stop 03/09/18 at 10:38; Status DC Phenylephrine HCl 20 mg/Sodium Chloride 252 ml @ 22.68 mls/ hr 1X ONCE IV ; Start 03/09/18 at 10:45; Stop 03/09/18 at 21:51; Status DC Iohexol (Omnipaque 300 Mg/ml) 75 ml 1X ONCE IV ; Start 03/09/18 at 11:30; Stop 03/09/18 at 11:35; Status DC Micafungin Sodium 100 mg/Dextrose 100 ml @ 100 mls/hr Q24H IV Last administered on 03/19/18at 16:19; Start 03/09/18 at 16:00 Linezolid/Dextrose 300 ml @ 300 mls/hr Q12H IV Last administered on 03/14/18at 04:58; Start 03/09/18 at 17:00; Stop 03/14/18 at 09:14; Status DC Norepinephrine Bitartrate 250 ml @ 1.875 mls/ hr CONT PRN IV SEE I/O RECORD Last administered on 03/09/18at 16:18; Start 03/09/18 at 16:00; Stop 03/15/18 at 12 :46; Status DC Furosemide (Lasix) 40 mg 1X ONCE IVP Last administered on 03/10/18at 08:49; Start 03/10/18 at 09:00; Stop 03/10/18 at 09:01; Status DC Perflutren Protein Type A Microsphe (Optison) 0.66 mg STK-MED ONCE IV ; Start at 10:23; Stop 03/10/18 at 10:25; Status DC Enoxaparin Sodium (Lovenox Per Pharmacy Treatment Dosing) 1 each PRN DAILY PRN MC SEE COMMENTS; Start 03/10/18 at 12:00; Stop 03/11/18 at 12:50; Status DC Enoxaparin Sodium (Lovenox 150mg Syringe) 130 mg Q12H SQ Last administered on at 07:48; Start 03/10/18 at 21:00; Stop 03/11/18 at 12:51; Status DC Enoxaparin Sodium (Lovenox 100mg Syringe) 90 mg 1X ONCE SQ Last administered on 03/10/18at 13:53; Start 03/10/18 at 12:30; Stop 03/10/18 at 12:31; Status DC Perflutren Protein Type A Microsphe (Optison) 0.66 mg 1X ONCE IV Last administered on 03/10/18at 12:55; Start 03/10/18 at 13:00; Stop 03/10/18 at 13:01; Status DC Iohexol (Omnipaque 300 Mg/ml) 75 ml 1X ONCE IV Last administered on 03/11/18at 10:00; Start 03/11/18 at 09:00; Stop 03/11/18 at 09:01; Status DC Info (CONTRAST GIVEN -- Rx MONITORING) 1 each PRN DAILY PRN MC SEE COMMENTS; Start 03/11/18 at 09:00; Stop 03/13/18 at 08:59; Status DC Norepinephrine Bitartrate (Levophed 8mg/ 250ml Premix Drip) 8 mg STK-MED ONCE IV ; Start 03/09/18 at 07:00; Stop 03/11/18 at 08:58; Status DC Insulin Human Lispro (HumaLOG) 0-5 UNITS TIDWMEALS SQ Last administered on 03/16at 09:13; Start 03/11/18 at 12:00; Stop 03/19/18 at 10:54; Status DC Dextrose (Dextrose 50%-Water Syringe) 12.5 gm PRN Q15MIN PRN IV SEE COMMENTS; Start 03/11/18 at 09:15; Stop 03/19/18 at 10:54; Status DC Potassium Chloride/Water 50 ml @ 50 mls/hr 1X ONCE IV Last administered on 03/11at 09:43; Start 03/11/18 at 10:00; Stop 03/11/18 at 10:59; Status DC Info (Anti-Coagulation Monitoring By Pharmacy) 1 each PRN DAILY PRN MC SEE COMMENTS; Start 03/11/18 at 09:30; Stop 03/11/18 at 12:51; Status DC Info (Tpn Per Pharmacy) 1 each PRN DAILY PRN MC SEE COMMENTS Last administered on 03/18/18at 13:50; Start 03/11/18 at 11:15; Stop 03/19/18 at 10:54; Status DC Magnesium Sulfate 50 ml @ 25 mls/hr 1X ONCE IV Last administered on 03/11/18at 15:09; Start 03/11/18 at 16:00; Stop 03/11/18 at 17:59; Status DC Potassium Phosphate 13.6 mmol/Dextrose 104.5333 ml @ 52.267 m... ONCE ONCE IV Last administered on 03/11/18at 17:11; Start 03/11/18 at 18:00; Stop 03/11/18 at 19:59; Status DC Norepinephrine Bitartrate (Levophed 8mg/ 250ml Premix Drip) 8 mg STK-MED ONCE IV ; Start 03/09/18 at 11:00; Stop 03/11/18 at 12:37; Status DC Enoxaparin Sodium (Lovenox 40mg Syringe) 40 mg Q12HR SQ Last administered on at 08:19; Start 03/11/18 at 21:00 Sodium Chloride 90 meq/Potassium Chloride 50 meq/ Potassium Phosphate 13.6 mmol/ Magnesium Sulfate 10 meq/ Multivitamins 10 ml/Chromium/ Copper/Manganese/ Seleni /Zn 1 ml/ Total Parenteral Nutrition/Amino Acids/Dextrose/ Fat Emulsion Intravenous 1,800 ml @ 75 mls/hr TPN CONT IV Last administered on 03/11/18at 21 :44; Start 03/11/18 at 22:00; Stop 03/12/18 at 21:59; Status DC Potassium Chloride/Water 50 ml @ 50 mls/hr 1X ONCE IV Last administered on 03/12at 10:40; Start 03/12/18 at 09:30; Stop 03/12/18 at 10:29; Status DC Sodium Chloride 90 meq/Potassium Acetate 70 meq/ Potassium Phosphate 10 mmol/ Magnesium Sulfate 10 meq/ Multivitamins 10 ml/Chromium/ Copper/Manganese/ Seleni /Zn 1 ml/ Total Parenteral Nutrition/Amino Acids/Dextrose/ Fat Emulsion Intravenous 1,800 ml @ 75 mls/hr TPN CONT IV ; Start 03/12/18 at 22:00; Stop at 22:00; Status DC Sodium Chloride 90 meq/Potassium Chloride 70 meq/ Potassium Phosphate 10 mmol/ Magnesium Sulfate 10 meq/ Multivitamins 10 ml/Chromium/ Copper/Manganese/ Seleni /Zn 1 ml/ Total Parenteral Nutrition/Amino Acids/Dextrose/ Fat Emulsion Intravenous 1,800 ml @ 75 mls/hr TPN CONT IV Last administered on 03/12/18at 21 :41; Start 03/12/18 at 22:00; Stop 03/13/18 at 21:59; Status DC Benzocaine (Hurricaine One) 1 spray 1X ONCE MM ; Start 03/13/18 at 12:45; Stop 03/13/18 at 12:45; Status DC Promethazine HCl/ Codeine (Phenergan With Codeine) 5 ml PRN Q6HRS PRN PO COUGH Last administered on 03/14/18at 08:10; Start 03/13/18 at 12:45 Benzocaine (Hurricaine One) 1 spray 1X ONCE MM ; Start 03/13/18 at 12:45; Stop 03/13/18 at 12:45; Status DC Benzocaine (Hurricaine One) 1 spray 1X ONCE MM Last administered on 03/13/18at 16:11; Start 03/13/18 at 12:45; Stop 03/13/18 at 12:46; Status DC Sodium Chloride 90 meq/Potassium Chloride 70 meq/ Potassium Phosphate 13.6 mmol/ Magnesium Sulfate 10 meq/ Multivitamins 10 ml/Chromium/ Copper/Manganese/ Seleni /Zn 1 ml/ Total Parenteral Nutrition/Amino Acids/Dextrose/ Fat Emulsion Intravenous 1,800 ml @ 75 mls/hr TPN CONT IV Last administered on 03/13/18at 21 :53; Start 03/13/18 at 22:00; Stop 03/14/18 at 21:59; Status DC Propofol 100 ml @ As Directed STK-MED ONCE IV ; Start 03/13/18 at 15:47; Stop at 15:48; Status DC Propofol 100 ml @ 0 mls/hr CONT PRN IV PER PROTOCOL Last administered on at 05:04; Start 03/13/18 at 16:45; Stop 03/14/18 at 17:45; Status DC Hydralazine HCl (Apresoline Inj) 10 mg PRN Q4HRS PRN IVP ELEVATED BP, SEE COMMENTS Last administered on 03/15/18at 11:37; Start 03/14/18 at 09:00 Albuterol/ Ipratropium (Duoneb) 3 ml RTQID NEB Last administered on 03/15/18at 08:27; Start 03/14/18 at 12:00; Stop 03/15/18 at 11:01; Status DC Albuterol/ Ipratropium (Duoneb) 3 ml 1X ONCE NEB Last administered on at 09:36; Start 03/14/18 at 09:30; Stop 03/14/18 at 09:31; Status DC Dexmedetomidine HCl 200 mcg/ Sodium Chloride 50 ml @ 0 mls/hr CONT PRN IV PER PROTOCOL Last administered on 03/14/18at 14:17; Start 03/14/18 at 10:30; Stop 03/15 at 07:33; Status DC Sodium Chloride 500 ml @ 500 mls/hr 1X PRN PRN IV SEE COMMENTS; Start 03/14/18 at 10:30 Atropine Sulfate (ATROPINE 0.5mg SYRINGE) 0.5 mg PRN Q5MIN PRN IV SEE COMMENTS ; Start 03/14/18 at 10:30 Furosemide (Lasix) 40 mg 1X ONCE IVP Last administered on 03/14/18at 10:45; Start 03/14/18 at 10:30; Stop 03/14/18 at 10:31; Status DC Sodium Chloride 90 meq/Potassium Chloride 70 meq/ Potassium Phosphate 13.6 mmol/ Magnesium Sulfate 10 meq/ Multivitamins 10 ml/Chromium/ Copper/Manganese/ Seleni /Zn 1 ml/ Total Parenteral Nutrition/Amino Acids/Dextrose/ Fat Emulsion Intravenous 1,800 ml @ 75 mls/hr TPN CONT IV Last administered on 03/14/18at 22 :33; Start 03/14/18 at 22:00; Stop 03/15/18 at 21:59; Status DC Pantoprazole Sodium (PROTONIX VIAL for IV PUSH) 40 mg BID IVP Last administered on 03/17/18at 09:09; Start 03/15/18 at 09:00; Stop 03/17/18 at 14:19 ; Status DC Iohexol (Omnipaque 300 Mg/ml) 75 ml 1X ONCE IV Last administered on 03/15/18at 06:15; Start 03/15/18 at 06:15; Stop 03/15/18 at 06:16; Status DC Iohexol (Omnipaque 240 Mg/ml) 50 ml 1X ONCE PO Last administered on 03/15/18at 06:15; Start 03/15/18 at 06:15; Stop 03/15/18 at 06:16; Status DC Info (CONTRAST GIVEN -- Rx MONITORING) 1 each PRN DAILY PRN MC SEE COMMENTS; Start 03/15/18 at 06:15; Stop 03/17/18 at 06:14; Status DC Labetalol HCl (Normodyne) 20 mg PRN Q2HR PRN IVP HTN 1ST CHOICE SEE COMMENTS Last administered on 03/15/18at 09:46; Start 03/15/18 at 09:30 Ipratropium [place] (Atrovent) 0.5 mg 1X ONCE NEB ; Start 03/15/18 at 12:00; Stop 03/15/18 at 12:00; Status DC Ipratropium [place] (Atrovent) 0.5 mg RTQID NEB Last administered on 03/20/18at 12:12; Start 03/15/18 at 12:00 Metoprolol Tartrate (Lopressor Vial) 5 mg Q6HRS IVP Last administered on at 12:56; Start 03/15/18 at 12:00; Stop 03/15/18 at 18:14; Status DC Carvedilol (Coreg) 12.5 mg BIDWMEALS PO Last administered on 03/20/18at 08:18; Start 03/15/18 at 17:00 Sodium Chloride 90 meq/Potassium Chloride 70 meq/ Potassium Phosphate 5 mmol/ Magnesium Sulfate 10 meq/ Multivitamins 10 ml/Chromium/ Copper/Manganese/ Seleni /Zn 1 ml/ Total Parenteral Nutrition/Amino Acids/Dextrose/ Fat Emulsion Intravenous 1,800 ml @ 75 mls/hr TPN CONT IV Last administered on 03/15/18at 21:17; Start 03/15/18 at 22:00; Stop 03/16/18 at 21:59; Status DC Phenazopyridine HCl (Pyridium) 200 mg PRN TID PRN PO URINARY PAIN; Start at 11:15 Sodium Chloride 90 meq/Potassium Chloride 70 meq/ Potassium Phosphate 5 mmol/ Magnesium Sulfate 10 meq/ Multivitamins 10 ml/Chromium/ Copper/Manganese/ Seleni /Zn 1 ml/ Total Parenteral Nutrition/Amino Acids/Dextrose/ Fat Emulsion Intravenous 1,800 ml @ 75 mls/hr TPN CONT IV Last administered on 03/16/18at 20:27; Start 03/16/18 at 22:00; Stop 03/17/18 at 21:59; Status DC Pantoprazole Sodium (PROTONIX VIAL for IV PUSH) 40 mg DAILY IVP Last administered on 03/20/18at 08:17; Start 03/18/18 at 09:00 Sodium Chloride 1,000 ml @ 60 mls/hr [id number] IV ; Start 03/18/18 at 07:30 Sodium Chloride 90 meq/Potassium Chloride 70 meq/ Potassium Phosphate 5 mmol/ Magnesium Sulfate 10 meq/ Multivitamins 10 ml/Chromium/ Copper/Manganese/ Seleni /Zn 1 ml/ Total Parenteral Nutrition/Amino Acids/Dextrose/ Fat Emulsion Intravenous 1,800 ml @ 75 mls/hr TPN CONT IV Last administered on 03/17/18at 21:10; Start 03/17/18 at 22:00; Stop 03/18/18 at 21:59; Status DC Iohexol (Omnipaque 300 Mg/ml) 100 ml STK-MED ONCE .ROUTE ; Start 03/18/18 at 07: 21; Stop 03/18/18 at 07:22; Status DC Lidocaine HCl (Lidocaine 1% Pf) 30 ml STK-MED ONCE .ROUTE ; Start 03/18/18 at 07 :21; Stop 03/18/18 at 07:22; Status DC Heparin Sodium/ Sodium Chloride 1,000 ml @ As Directed STK-MED ONCE .ROUTE ; Start 03/18/18 at 07:22; Stop 03/18/18 at 07:23; Status DC Fentanyl Citrate (Fentanyl 2ml Vial) 100 mcg STK-MED ONCE .ROUTE ; Start at 10:12; Stop 03/18/18 at 10:13; Status DC Midazolam HCl (Versed) 2 mg STK-MED ONCE .ROUTE ; Start 03/18/18 at 10:12; Stop 03/18/18 at 10:13; Status DC Heparin Sodium (Porcine) (Heparin Sodium) 10,000 unit STK-MED ONCE .ROUTE ; Start 03/18/18 at 10:13; Stop 03/18/18 at 10:14; Status DC Verapamil HCl (Verapamil) 5 mg STK-MED ONCE .ROUTE ; Start 03/18/18 at 10:13; Stop 03/18/18 at 10:14; Status DC Nitroglycerin (Nitroglycerin) 200 mcg STK-MED ONCE .ROUTE ; Start 03/18/18 at 10 :13; Stop 03/18/18 at 10:14; Status DC Nitroglycerin (Nitroglycerin) 200 mcg 1X ONCE IART Last administered on at 10:43; Start 03/18/18 at 10:45; Stop 03/18/18 at 10:46; Status DC Verapamil HCl (Verapamil) 2.5 mg 1X ONCE IART Last administered on 03/18/18at 10:44; Start 03/18/18 at 10:45; Stop 03/18/18 at 10:46; Status DC Heparin Sodium (Porcine) (Heparin Sodium) 2,500 unit 1X ONCE IART Last administered on 03/18/18at 10:45; Start 03/18/18 at 10:45; Stop 03/18/18 at 10:46 ; Status DC Heparin Sodium/ Sodium Chloride (HEPARIN for ARTERIAL LINE FLUSH) 1,000 unit 1X ONCE IART Last administered on 03/18/18at 10:43; Start 03/18/18 at 10:45; Stop 03/18/18 at 10:46; Status DC Heparin Sodium/ Sodium Chloride (HEPARIN for ARTERIAL LINE FLUSH) 1,000 unit 1X ONCE IART Last administered on 03/18/18at 10:43; Start 03/18/18 at 10:45; Stop 03/18/18 at 10:46; Status DC Midazolam HCl (Versed) 2 mg 1X ONCE IV Last administered on 03/18/18at 10:44; Start 03/18/18 at 10:45; Stop 03/18/18 at 10:46; Status DC Fentanyl Citrate (Fentanyl 2ml Vial) 50 mcg 1X ONCE IV Last administered on at 10:45; Start 03/18/18 at 10:45; Stop 03/18/18 at 10:46; Status DC Iohexol (Omnipaque 300 Mg/ml) 112 ml 1X ONCE IART Last administered on at 10:46; Start 03/18/18 at 10:45; Stop 03/18/18 at 10:46; Status DC Lidocaine HCl 1 ml 1X ONCE IJ Last administered on 03/18/18at 10:46; Start at 10:45; Stop 03/18/18 at 10:46; Status DC Info (CONTRAST GIVEN -- Rx MONITORING) 1 each PRN DAILY PRN MC SEE COMMENTS; Start 03/18/18 at 10:45; Stop 03/20/18 at 10:44; Status DC Sodium Chloride 1,000 ml @ 60 mls/hr [id number] IV ; Start 03/18/18 at 10:42 Nitroglycerin (Nitrostat) 0.4 mg PRN Q5MIN PRN SL CHEST PAIN; Start 03/18/18 at 10:45 Sodium Chloride 90 meq/Potassium Chloride 70 meq/ Magnesium Sulfate 10 meq/ Multivitamins 10 ml/Chromium/ Copper/Manganese/ Seleni/Zn 1 ml/ Total Parenteral Nutrition/Amino Acids/Dextrose/ Fat Emulsion Intravenous 1,800 ml @ 75 mls/hr TPN CONT IV ; Start 03/18/18 at 22:00; Stop 03/19/18 at 21:59; Status DC Lactobacillus Rhamnosus (Culturelle) 1 cap BID PO Last administered on at 08:17; Start 03/20/18 at 09:00 Active Scripts Active Reported Coreg (Carvedilol) 12.5 Mg Tablet 1 Tab PO BID Omeprazole 40 Mg Capsule. 1 Cap PO BID Vitals/I & O Vital Sign - Last 24 Hours 03/19/18 03/19/18 03/19/18 03/19/18 15:00 16:24 17:38 19:34 Temp 97.7 97.7 Pulse 87 75 Resp 16 B/P (MAP) 124/83 (97) Pulse Ox 96 96 97 O2 Delivery Room Air Room Air Room Air 03/19/18 03/19/18 03/19/18 03/20/18 19:45 19:45 23:00 03:00 Temp 98.0 98.0 97.8 98.0 98.0 97.8 Pulse 85 84 91 Resp 20 20 18 B/P (MAP) 126/81 (96) 120/62 (81) 120/71 (87) Pulse Ox 95 97 96 O2 Delivery Room Air Room Air Nasal Cannula Room Air O2 Flow Rate 2.0 03/20/18 03/20/18 03/20/18 03/20/18 07:00 07:32 08:07 08:18 Temp 98.1 98.1 Pulse 95 87 Resp 16 B/P (MAP) 124/71 (88) 124/71 Pulse Ox 95 96 O2 Delivery Room Air Room Air Room Air 03/20/18 03/20/18 11:00 12:12 Temp 98.4 98.4 Pulse 80 Resp 16 B/P (MAP) 129/78 (95) Pulse Ox 97 O2 Delivery Room Air Room Air Intake and Output 03/19/18 03/19/18 03/20/18 15:00 23:00 07:00 Intake Total 1200 ml 750 ml Output Total 700 ml Balance 500 ml 750 ml KEO AYALA III DO Mar 20, 2018 14:23
[2018-03-20] MEDS: MICAFUNGIN 100 MG in IV DEXTROSE 5% 100ML 100 ML IV SCH (15:31)
[2018-03-20 16:40] VITALS: BP 129/78
== END 2018-03-20 17:09 | disposition home health service (06) | DRG 870 ==
LOC: ER 10:35 → 4 NORTH 14:22 → 1 WEST ICU 03-09 06:53 → 2 SOUTH 03-15 12:44
PROVIDERS: ADMIT Internal Medicine; ATTEND Internal Medicine
PROC: 0BH17EZ Insertion of Endotracheal Airway into Trachea, Via Natural or Artificial Opening (ICD-10-PCS; 2018-03-09)
PROC: 5A1955Z Respiratory Ventilation, Greater than 96 Consecutive Hours (ICD-10-PCS; 2018-03-09)
PROC: 04HK33Z Insertion of Infusion Device into Right Femoral Artery, Percutaneous Approach (ICD-10-PCS; 2018-03-09)
PROC: 06HM33Z Insertion of Infusion Device into Right Femoral Vein, Percutaneous Approach (ICD-10-PCS; 2018-03-09)
PROC: 5A12012 Performance of Cardiac Output, Single, Manual (ICD-10-PCS; 2018-03-09)
PROC: 02H633Z Insertion of Infusion Device into Right Atrium, Percutaneous Approach (ICD-10-PCS; principal; 2018-03-11)
PROC: 4A023N7 Measurement of Cardiac Sampling and Pressure, Left Heart, Percutaneous Approach (ICD-10-PCS; 2018-03-18)
PROC: B2151ZZ Fluoroscopy of Left Heart using Low Osmolar Contrast (ICD-10-PCS; 2018-03-18)
PROC: B2111ZZ Fluoroscopy of Multiple Coronary Arteries using Low Osmolar Contrast (ICD-10-PCS; 2018-03-18)
DX: A41.9 Sepsis, unspecified organism (principal); R65.21 Severe sepsis with septic shock; J96.01 Acute respiratory failure with hypoxia; I50.43 Acute on chronic combined systolic (congestive) and diastolic (congestive) heart failure; I46.9 Cardiac arrest, cause unspecified; K57.20 Diverticulitis of large intestine with perforation and abscess without bleeding; I47.2 Ventricular tachycardia; Z68.41 Body mass index [BMI] 40.0-44.9, adult; K22.10 Ulcer of esophagus without bleeding; J44.1 Chronic obstructive pulmonary disease with (acute) exacerbation; E87.2 Acidosis; N17.9 Acute kidney failure, unspecified; I42.9 Cardiomyopathy, unspecified; J98.11 Atelectasis; K21.9 Gastro-esophageal reflux disease without esophagitis; I11.0 Hypertensive heart disease with heart failure; E66.01 Morbid (severe) obesity due to excess calories; G47.33 Obstructive sleep apnea (adult) (pediatric); K27.9 Peptic ulcer, site unspecified, unspecified as acute or chronic, without hemorrhage or perforation; F14.10 Cocaine abuse, uncomplicated; F12.10 Cannabis abuse, uncomplicated; F10.20 Alcohol dependence, uncomplicated; K76.0 Fatty (change of) liver, not elsewhere classified; T45.515A Adverse effect of anticoagulants, initial encounter; E87.6 Hypokalemia; F41.9 Anxiety disorder, unspecified; W19.XXXA Unspecified fall, initial encounter; Y92.238 Other place in hospital as the place of occurrence of the external cause; Y93.89 Activity, other specified; Y92.89 Other specified places as the place of occurrence of the external cause; Y99.8 Other external cause status; Z87.891 Personal history of nicotine dependence; Z88.1 Allergy status to other antibiotic agents; Z79.899 Other long term (current) drug therapy; Z87.19 Personal history of other diseases of the digestive system; Z88.8 Allergy status to other drugs, medicaments and biological substances; Z82.49 Family history of ischemic heart disease and other diseases of the circulatory system
CPT/HCPCS: 93458; 99285; C8929; 36415; 36569; 36600; 70450; 71045; 71275; 72125; 74177; 80048; 80053; 80307; 81001; 82550; 82553; 82805; 82962; 83605; 83735; 84100; 84132; 84145; 84478; 84484; 85007; 85025; 85610; 87040; 87641; 93005; 93970; 94002; 94003; 94640; 94760; 96361; 96365; 96367; 96375; 99152; C1769; C1892; C9113; J0360; J0744; J1200; J1644; J1650; J1815; J1940; J2001; J2020; J2060; J2248; J2250; J2270; J2405; J2543; J2704; J3010; J3475; J3480; J3490; J7030; J7040; J7620; J7644; Q9956; Q9966; Q9967; 92526; 92610; 97116; 97530; 97535; G0479